=== PATIENT | female | born 1980 | race Caucasian/White ===

== ENCOUNTER 2017-05-03 10:37 | Outpatient (CLI) | payer BC, SELFPAY ==
[2017-05-03 10:44] VITALS: BMI 33.5
[2017-05-03 11:15] VITALS: BP 119/83; PULSE 116; RESP 18; TEMP 36.8
[2017-05-03 11:45] VITALS: BP 126/70; PULSE 105; RESP 16
--- NOTE | 2017-05-03 12:13 | PC.NURSE ---
PHENERGAN 12.5 MG STARTED INFUSING AT THIS TIME (1115).
[2017-05-03 12:15] VITALS: BP 125/86; PULSE 68; RESP 16
--- NOTE | 2017-05-03 12:21 | PC.NURSE ---
PHENERGAN 12.5MG INFUSION STARTED AT 1115.
--- NOTE | 2017-05-03 12:24 | PC.NURSE ---
PHENERGAN DONE INFUSING AT 1130 AND STARTED NS INFUSION AT THIS TIME WELL.
[2017-05-03 12:45] VITALS: BP 123/72; PULSE 99; RESP 16
[2017-05-03 13:15] VITALS: BP 125/80; PULSE 84; RESP 16
[2017-05-03 13:35] VITALS: BP 130/78; PULSE 82; RESP 18
== END 2017-05-03 13:45 | disposition home or self-care (01) ==
LOC: INF 10:39
PROVIDERS: PCP Family Medicine; Visit Provider Family Medicine
DX: R11.10 Vomiting, unspecified (principal); E86.0 Dehydration
CPT/HCPCS: 96361

== ENCOUNTER 2017-07-04 | Emergency (ER) | payer BC, SELFPAY ==
[2017-07-04 00:09] VITALS: BP 157/88; PULSE 148; RESP 20; TEMP 36.8; O2SAT 94; BMI 33.5
--- NOTE | 2017-07-04 00:23 | PC.NURSE ---
FSBS @ 2975 - 476; STAT GLUCOSE ORDERED
[2017-07-04 00:29] LABS: Basophils # 0.1 K/mm3 (0-0.2); Basophils % 0.9 % (0.1-2.0); Eosinophils % 0.1 % (0.1-12.0); Hematocrit 47.7 % (37.0-47.0); Hemoglobin 14.8 g/dL (12.2-16.2); Lymphocytes # 2.6 K/mm3 (0.7-4.5); Lymphocytes % 20.9 K/mm3 (10-50); Mean Corpuscular HGB Conc 31.1 g/dL (31.8-35.4); Mean Corpuscular Hemoglobin 30.6 pg (27.0-31.2); Mean Corpuscular Volume 98.5 fl (81-99); Mean Platelet Volume 8.4 fl (7.4-10.4); Monocytes # 0.9 K/mm3 (0.1-1.0); Monocytes % 7.1 % (1.7-9.3); Platelet Count 470 K/mm3 (142-424); Red Blood Count 4.85 M/mm3 (4.20-5.40); Red Cell Distribution Width 14.1 % (11.5-17.5); White Blood Count 12.6 K/mm3 (4.8-10.8)
[2017-07-04 00:31] VITALS: BP 143/86; PULSE 133; RESP 22; O2SAT 97
[2017-07-04 00:31] LABS: ABG Base Excess -3.2 mmol/L (-2.4-2.3); ABG HCO3 21.6 mmhg (22.0-26.0); ABG Oxygen Saturation 96 % (90-100); ABG PCO2 35.5 mmhg (35.0-45.0); ABG PO2 78.4 mmhg (80-100); ABG TCO2 22.7 mmhg (23-27)
[2017-07-04 00:32] LABS: POC Glucose,Bedside 538 mg/dL (70-110)
--- NOTE | 2017-07-04 00:34 | XR_ITS ---
XR chest portable HISTORY: ITS.REASON: cough ORDERING PHYSICIAN: Bulmaro Sanon MD PATIENT AGE: 36 years COMPARISON: 12/02/2016 FINDINGS: The cardiomediastinal silhouette and pulmonary vascularity are within normal limits. The lungs are clear without infiltrates, suspicious nodules, or pleural effusions. No acute bony abnormalities. IMPRESSION: Negative chest, no acute finding
[2017-07-04 00:35] LABS: Allen's Test Acceptable; Microscopic, Urine URINE MICROSCOPIC (MICROSCOPIC); Oxygen room air %; Source Right Radial
[2017-07-04 00:42] LABS: Appearance,Urine CLEAR (Clear); Bilirubin,Urine Negative (Negative); Blood, Urine Negative (Negative); Color,Urine YELLOW (Yellow); Glucose,Urine (UA) 3+ (Negative); Ketones,Urine TRACE (Negative); Leukocyte Esterase,Urine Negative (Negative); Nitrate,Urine Negative (Negative); Protein,Urine Negative (Negative); Specific Gravity, Urine <= 1.005 (1.005-1.030); Urobilinogen,Urine 0.2 EU/dl (0.2)
[2017-07-04 00:44] LABS: Urine Pregnancy, HCG Qual. Negative (Negative)
[2017-07-04 00:45] LABS: Acetone, Serum (Rapid) None Detected (None Detect)
[2017-07-04 00:48] LABS: Lactic Acid 7.2 mmol/L (0.4-2.0)
[2017-07-04 00:49] LABS: Bacteria,Urine 1+ /lpf; WBC,Urine Occasional #/hpf (0-3)
--- NOTE | 2017-07-04 00:49 | PC.NURSE ---
NOTIFIED DR MARC OF CRITICAL LACTIC ACID OF 7.2
[2017-07-04 00:58] LABS: Alanine Aminotransferase 63 U/L (12-78); Albumin Level 3.3 gm/dL (3.4-5.0); Albumin/Globulin Ratio 0.7 (1.1-1.8); Alkaline Phosphatase 143 U/L (46-116); Anion Gap 17.2 mEq/L (5-15); Aspartate Amino Transferase 36 U/L (15-37); Bilirubin,Total 0.1 mg/dL (0.2-1.0); Blood Urea Nitrogen 13 mg/dL (7-18); Calcium 9.3 mg/dL (8.5-10.1); Carbon Dioxide 20 mmol/L (21.0-32.0); Chloride 94 mmol/L (98-107); Creatinine Clearance Estimated 91 mL/min (0-300); Creatinine,Serum 1.26 mg/dL (0.55-1.02); Estimated Glomerular Filt Rate 48 ml/min (>60); GFR (African American) 58 ML/MIN (>60); Potassium 4.2 mmoL/L (3.5-5.1); Sodium 127 mmol/L (136-145); Total Protein,Serum 8.3 gm/dL (6.4-8.2)
[2017-07-04 00:59] VITALS: BP 136/89; PULSE 123; RESP 20; O2SAT 97
[2017-07-04 00:59] LABS: Glucose 571 mg/dL (74-106)
--- NOTE | 2017-07-04 00:59 | PC.NURSE ---
NOTIFIED OF GLUCOSE OF 571
[2017-07-04 01:23] VITALS: BP 162/90; PULSE 119; RESP 20; TEMP 36.9; O2SAT 96
--- NOTE | 2017-07-04 01:27 | HMH.EDGENADL ---
ED Disposition Clinical Impression: CAP (community acquired pneumonia) Qualifiers: Laterality: right Lung location: lower lobe of lung Qualified Code(s): J18.1 - Lobar pneumonia, unspecified organism Diabetes mellitus Qualifiers: Diabetes mellitus type: type 2 Diabetes mellitus complication status: with unspecified complications Diabetes mellitus long term care administrator insulin use: unspecified long term care administrator insulin use status Qualified Code(s): E11.8 - Type 2 diabetes mellitus with unspecified complications Disposition: Home, Self-Care Condition on Discharge: Good Instructions: DI for Cough -- Adult Additional Instructions: call pcp this am Referrals: Williams Oro MD [Primary Care Provider] - - Critical Care Critical Care Time: No Attestation: On 07/04/17, the high probability of a clinically significant, sudden or life threatening deterioration of the following system(s) required my full and direct attention, intervention and personal management. The time I documented below is in addition to time spent performing reported procedures but includes the following listed in this critical care notation. Medical Decision Making - Medical Records Medical records reviewed: Yes: I reviewed the patient's medical records. Vital Signs: 07/04/17 00:09 07/04/17 00:31 07/04/17 00:59 Temperature 98.2 F Temperature Source Oral Pulse Rate [Right Brachial] 148 H 133 H 123 H Respiratory Rate 20 22 20 Blood Pressure [Right Arm] 157/88 143/86 136/89 Blood Pressure Mean [Right Arm] 111 105 104 Blood Pressure Source [Right Arm] Automatic Cuff Automatic Cuff Automatic Cuff Blood Pressure Position [Right Arm] Supine Supine Supine 02 Sat by Pulse Oximetry 94 L 97 97 Oxygen Delivery Method Room Air Room Air Room Air 07/04/17 01:23 07/04/17 02:30 Temperature 98.5 F Temperature Source Oral Pulse Rate [Right Brachial] 119 H 108 H Respiratory Rate 20 18 Blood Pressure [Right Arm] 162/90 142/70 Blood Pressure Mean [Right Arm] 114 94 Blood Pressure Source [Right Arm] Automatic Cuff Automatic Cuff Blood Pressure Position [Right Arm] Supine Supine 02 Sat by Pulse Oximetry 96 96 Oxygen Delivery Method Room Air Room Air - Lab Data Lab results reviewed: Yes: I reviewed the patient's lab results. Lab Results 07/04/17 00:13: WBC 12.6 H, RBC 4.85, Hgb 14.8, Hct 47.7 H, MCV 98.5, MCH 30.6, MCHC 31.1 L, RDW 14.1, Plt Count 470 H, MPV 8.4, Neut % (Auto) 71.0, Lymph % (Auto) 20.9, [place] % (Auto) 7.1, Eos % (Auto) 0.1, Baso % (Auto) 0.9, Neut # (Auto) 9.0 H, Lymph # (Auto) 2.6, [place] # (Auto) 0.9, Eos # (Auto) 0.0, Baso # (Auto) 0.1 07/04/17 00:13: Urine HCG, Qual Negative 07/04/17 00:13: Sodium 127 L, Potassium 4.2, Chloride 94 L, Carbon Dioxide 20 L, Anion Gap 17.2 H, BUN 13, Creatinine 1.26 H, Estimated Creat Clear 91, Estimated GFR 48 L, Est GFR ( Amer) 58 L, Glucose 571 H*, Calcium 9.3, Total Bilirubin 0.1 L, AST 36, ALT 63, Alkaline Phosphatase 143 H, Total Protein 8.3 H, Albumin 3.3 L, Globulin 5.0 H, Albumin/Globulin Ratio 0.7 L, Acetone Level None detected 07/04/17 00:13: Lactic Acid 7.2 H 07/04/17 00:23: Urine Color Yellow, Urine Appearance Clear, Urine pH 5.0, Ur Specific [place] <= 1.005, Urine Protein Negative, Urine Glucose (UA) 3+, Urine Ketones Trace, Urine Blood Negative, Urine Nitrate Negative, Urine Bilirubin Negative, Urine Urobilinogen 0.2, Ur Leukocyte Esterase Negative, Urine WBC Occasional, Ur Squamous Epith Cells 5-10, Urine Bacteria 1+ 07/04/17 00:23: Specimen Source Right radial, O2 % room air, ABG pH 7.40, ABG pCO2 35.5, ABG pO2 78.4 L, ABG HCO3 21.6 L, ABG Total CO2 22.7 L, ABG O2 Saturation 96, ABG Base Excess -3.2 L, Cristian Test Acceptable 07/04/17 00:25: POC Glucose 538 07/04/17 00:37: Influenza Type A Ag Negative, Influenza Type B Ag Negative Result diagrams: 07/04/17 00:13 07/04/17 00:13 Orders (Tests/Meds): ED MEDICATIONS Generic Name Dose Route Start Last Admin Trade Name Freq PRN Reason Stop Dose Admi
[2017-07-04 02:30] VITALS: BP 142/70; PULSE 108; RESP 18; O2SAT 96
[2017-07-04 03:09] VITALS: BP 145/80; PULSE 98; RESP 16; TEMP 36.7; O2SAT 98
[2017-07-04 03:54] LABS: Reflex Lactic Add Lactic Reflex
[2017-07-04 08:34] LABS: POC Glucose,Bedside 370 mg/dL (70-110)
== END 2017-07-04 03:13 | disposition home or self-care (01) ==
PROVIDERS: Emergency Provider Emergency Medicine; Family Provider Family Medicine; PCP Family Medicine
DX: J18.1 Lobar pneumonia, unspecified organism (principal); E11.8 Type 2 diabetes mellitus with unspecified complications; R00.0 Tachycardia, unspecified; Z79.84 Long term (current) use of oral hypoglycemic drugs
CPT/HCPCS: 71045; 80053; 81001; 81025; 82009; 82803; 82962; 83605; 85025; 87040; 87275; 87276; 93005; 93041; 96365; 96366; 96367; 96374; 96375; 99285

== ENCOUNTER 2017-07-06 12:11 | Inpatient (IN) | payer BC, SELFPAY ==
--- NOTE | 2017-07-06 13:00 | XR_ITS ---
XR chest 2V INDICATION: Persistent cough PA and lateral chest 12/02/2016 COMPARISON: FINDINGS: The lung bobo are well expanded and appear clear of infiltrate. The cardiomediastinal silhouette and vascularity are normal. The costophrenic angles are clear. The bony thorax is normal. IMPRESSION: Normal chest.
[2017-07-06 13:07] VITALS: BP 132/75; PULSE 109; RESP 16; TEMP 36.7; O2SAT 94; BMI 33.1
--- NOTE | 2017-07-06 13:21 | HMH.HP ---
*Admission Date: 07/06/17 <Rosanne Gonzalez - 07/06/17 13:32> *Chief complaint: weakness, vomiting, cough <Rosanne Gonzalez - 07/06/17 13:32> *History of present illness: Patient in office today with a deep, dry intractable cough. SHe had not been eating or drinking well at home and appeared dehydrated. Her lips were cracked and mucus membranes dry. In ER Sunday night, her lactic acid had been elevated at 7.2. <Clyde Almodovar - 07/06/17 18:10> Ms. Garcia is a 36yo female who was seen in the office of A on 07/03 and diagnosed with bronchitis. She was given a dexa shot and started on levaquin and tussigon. She went to the ER the night after her appt d/t feeling poorly. Her glucose was elevated in the 500's, her lactic acid was high, and a CXR showed no pneumonia. She was sent home and followed up in the office today. Her glucose was 324 today fasting. She is still coughing and is weak. She has been coughing so hard she vomits. She has had decreased appetitie as well. She was admitted for further evaluation and treatment. <Rosanne Gonzalez - 07/06/17 14:09> [facility] History Medical History: Reports:: Diabetes Mellitus Type 2, Gastroesophageal Reflux Disease(GERD), Hyperlipidemia, Migraine Denies:: Cancer, Diabetes Mellitus Type 1, MRSA <Rosanne Gonzalez 07/06/17 13:32> Amputation: No <Rosanne Gonzalez 07/06/17 13:32> Fractures: No <Rosanne Gonzalez 07/06/17 13:32> Comment: Splenectomy, Bx of thyroid nodule, Uterine repair with cyst removal, [place] tooth, Basal Cell removed from back, Cholecystectomy <Rosanne Gonzalez 07/06/17 13:32> - *Social History Smoking Status: Never smoker <Rosanne Gonzalez 07/06/17 14:09> Alcohol Intake: never <Rosanne Gonzalez 07/06/17 13:32> *Family Hx:: No significant family history <Rosanne Gonzalez 07/06/17 14:09> Review of Systems - Constitutional Reports body ache(s), Reports chills, Reports headache(s), Reports weakness, Denies fever(s) [facility]> - Eyes Denies blurry vision, Denies double vision <[facility] 07/06/17 14:09> - ENT Reports nasal congestion, Denies sore throat [facility] 07/06/[facility] 14:09> - *Cardiovascular Reports fast heart rate, Denies chest pain [facility] 07/06/17 14:09> - *Respiratory Reports cough, Reports shortness of breath <[facility] 07/06/17 14:09> - *Gastrointestinal Reports abdominal pain, Reports loose stools, Reports nausea, Reports vomiting [facility] 07/06/17 14:09> - *Genitourinary Denies difficulty urinating, Denies painful urination <[facility] 07/06/17 14:09> - *Musculoskeletal Reports body aches, Denies joint pain <[facility] 07/06/17 14:09> - *Neurologic Reports headache(s), Reports dizziness, Reports weakness <[facility] 07/06/17 14:09> Meds Home Medications Medication Instructions Recorded Confirmed Type Rizatriptan Benzoate [Maxalt] 5 mg PO NEEDED PRN 05/03/17 07/06/17 History Triamterene/Hydrochlorothiazid 1 each PO DAILYP PRN 05/03/17 07/06/17 History [Dyazide 37.5-25 Capsule] Atorvastatin Calcium [Atorvastatin 40 mg PO HS 07/04/17 07/06/17 History 40mg Tab] Dapagliflozin/Metformin HCl 2 each PO DAILY 07/04/17 07/06/17 History [Xigduo Xr 5 mg-1,000 mg Tablet] levoFLOXacin [Levofloxacin 750MG 750 mg PO DAILY 07/04/17 07/06/17 History Tablet] Hydrocodone Bit/Homatrop Me-Br 1 each PO Q4-6H PRN 07/06/17 07/06/17 History [Tussigon 5-1.5 mg Tablet] <Clyde Almodovar - 07/06/17 18:10> Allergies Allergy/AdvReac Type Severity Reaction Status Date / Time No Known Allergies Allergy Verified 05/03/17 10:51 <Clyde Almodovar - 07/06/17 18:10> Exam Vital signs and Labs for Last 24 Hours: Temp Pulse Resp BP Pulse Ox 99.2 F 93 H 18 106/64 96 07/06/17 15:58 07/06/17 15:58 07/06/17 15:58 07/06/17 15:58 07/06/17 15:58 Laboratory Results - last 24 hr 07/06/17 13:30: WBC 12.5 H, RBC 4.93,
--- NOTE | 2017-07-06 13:25 | P.HP_ITS ---
*Admission Date: 07/06/17 <Rosanne Gonzalez - 07/06/17 13:32> *Chief complaint: weakness, vomiting, cough <Rosanne Gonzalez - 07/06/17 13:32> *History of present illness: Patient in office today with a deep, dry intractable cough. SHe had not been eating or drinking well at home and appeared dehydrated. Her lips were cracked and mucus membranes dry. In ER Sunday night, her lactic acid had been elevated at 7.2. <Clyde Almodovar - 07/06/17 18:10> Ms. Garcia is a 36yo female who was seen in the office of A on 07/03 and diagnosed with bronchitis. She was given a dexa shot and started on levaquin and tussigon. She went to the ER the night after her appt d/t feeling poorly. Her glucose was elevated in the 500's, her lactic acid was high, and a CXR showed no pneumonia. She was sent home and followed up in the office today. Her glucose was 324 today fasting. She is still coughing and is weak. She has been coughing so hard she vomits. She has had decreased appetitie as well. She was admitted for further evaluation and treatment. <Rosanne Gonzalez - 07/06/17 14:09> [facility] History Medical History: Reports:: Diabetes Mellitus Type 2, Gastroesophageal Reflux Disease(GERD), Hyperlipidemia, Migraine Denies:: Cancer, Diabetes Mellitus Type 1, MRSA <Rosanne Gonzalez 07/06/17 13:32> Amputation: No <Rosanne Gonzalez 07/06/17 13:32> Fractures: No <Rosanne Gonzalez 07/06/17 13:32> Comment: Splenectomy, Bx of thyroid nodule, Uterine repair with cyst removal, [place] tooth, Basal Cell removed from back, Cholecystectomy <Rosanne Gonzalez 07/06/17 13:32> - *Social History Smoking Status: Never smoker <Rosanne Gonzalez 07/06/17 14:09> Alcohol Intake: never <Rosanne Gonzalez 07/06/17 13:32> *Family Hx:: No significant family history <Rosanne Gonzalez 07/06/17 14:09> Review of Systems - Constitutional Reports body ache(s), Reports chills, Reports headache(s), Reports weakness, Denies fever(s) [facility] 07/06/17 14:09> - Eyes Denies blurry vision, Denies double vision [facility] 07/06/17 14:09> - ENT Reports nasal congestion, Denies sore throat <[facility] 07/06/17 14:09> - *Cardiovascular Reports fast heart rate, Denies chest pain [facility] 07/06/17 14:09> - *Respiratory Reports cough, Reports shortness of breath <[facility] 07/06/17 14:09> - *Gastrointestinal Reports abdominal pain, Reports loose stools, Reports nausea, Reports vomiting <[facility] 07/06/17 14:09> - *Genitourinary Denies difficulty urinating, Denies painful urination <[facility] 14:09> - *Musculoskeletal Reports body aches, Denies joint pain <[facility] 07/06/17 14:09> - *Neurologic Reports headache(s), Reports dizziness, Reports weakness <[facility] 01/15 14:09> Meds Home Medications Medication Instructions Recorded Confirmed Type Rizatriptan Benzoate [Maxalt] 5 mg PO NEEDED PRN 05/03/17 07/06/17 History Triamterene/Hydrochlorothiazid 1 each PO DAILYP PRN 05/03/17 07/06/17 History [Dyazide 37.5-25 Capsule] Atorvastatin Calcium [Atorvastatin 40 mg PO HS 07/04/17 07/06/17 History 40mg Tab] Dapagliflozin/Metformin HCl 2 each PO DAILY 07/04/17 07/06/17 History [Xigduo Xr 5 mg-1,000 mg Tablet] levoFLOXacin [Levofloxacin 750MG 750 mg PO DAILY 07/04/17 07/06/17 History Tablet] Hydrocodone Bit/Homatrop Me-Br 1 each PO Q4-6H PRN 07/06/17 07/06/17 History [Tussigon 5-1.5 mg Tablet] <Clyde Almodovar - 07/06/17 18:10> Allergies
--- NOTE | 2017-07-06 14:00 | PC.NURSE ---
PT ARRIVED TO FLOOR AT 1330, NO COMPLAINTS VOICED TO NURSE. PT'S IV STARTED AND ADMISSION PROCESS BEGAN. PT HAS FAMILY AT BEDSIDE, LABS COLLECTED AND SENT TO LAB. PT IS IN BED, CALL LIGHT WITHIN REACH, WILL CONTINUE TO MONITOR.
[2017-07-06 14:20] LABS: Alanine Aminotransferase 56 U/L (12-78); Albumin Level 3.3 gm/dL (3.4-5.0); Albumin/Globulin Ratio 0.7 (1.1-1.8); Alkaline Phosphatase 123 U/L (46-116); Anion Gap 13.1 mEq/L (5-15); Aspartate Amino Transferase 33 U/L (15-37); Basophils # 0.2 K/mm3 (0-0.2); Basophils % 1.3 % (0.1-2.0); Bilirubin,Total 0.2 mg/dL (0.2-1.0); Blood Urea Nitrogen 14 mg/dL (7-18); Calcium 9.7 mg/dL (8.5-10.1); Carbon Dioxide 27 mmol/L (21.0-32.0); Chloride 98 mmol/L (98-107); Creatinine Clearance Estimated 145 mL/min (0-300); Creatinine,Serum 0.78 mg/dL (0.55-1.02); Eosinophils # 0.3 K/mm3 (0.0-0.4); Eosinophils % 2.7 % (0.1-12.0); Estimated Glomerular Filt Rate 83 ml/min (>60); GFR (African American) 101 ML/MIN (>60); Globulin 4.5 gm/dl (1.3-3.2); Glucose 256 mg/dL (74-106); Hematocrit 46.5 % (37.0-47.0); Hemoglobin 15.2 g/dL (12.2-16.2); Lymphocytes # 5.7 K/mm3 (0.7-4.5); Lymphocytes % 45.8 K/mm3 (10-50); Mean Corpuscular HGB Conc 32.7 g/dL (31.8-35.4); Mean Corpuscular Hemoglobin 30.9 pg (27.0-31.2); Mean Corpuscular Volume 94.4 fl (81-99); Mean Platelet Volume 8.3 fl (7.4-10.4); Monocytes # 1.4 K/mm3 (0.1-1.0); Monocytes % 11.2 % (1.7-9.3); Neutrophils # 4.9 K/mm3 (1.8-7.8); Neutrophils % 39.1 % (37.0-80.0); Platelet Count 499 K/mm3 (142-424); Potassium 4.1 mmoL/L (3.5-5.1); Red Blood Count 4.93 M/mm3 (4.20-5.40); Red Cell Distribution Width 14.1 % (11.5-17.5); Sodium 134 mmol/L (136-145); Total Protein,Serum 7.8 gm/dL (6.4-8.2); White Blood Count 12.5 K/mm3 (4.8-10.8)
[2017-07-06 14:25] LABS: Acetone, Serum (Rapid) None Detected (None Detect)
[2017-07-06 14:27] LABS: Lactic Acid 2.2 mmol/L (0.4-2.0)
[2017-07-06 15:58] VITALS: BP 106/64; PULSE 93; RESP 18; TEMP 37.3; O2SAT 96
--- NOTE | 2017-07-06 16:31 | P.CONPHA_ITS ---
[facility] Pharmacy VTE Monitoring - Patient Demographics Admission date: 07/06/17 Report Date: 07/06/17 Time: 16:31 Allergies/Adverse Reactions: Patient Allergies No Known Allergies Allergy (Verified 05/03/17 10:51) Height: 1.68 m Weight: 93.242 kg Patient Problems: Current Active Problems Type 2 diabetes mellitus (Chronic) Hyperglycemia (Acute) Dehydration (Acute) Lactic acidosis (Acute) Bronchitis (Acute) - VTE Risk Labs: VTE Related Lab Results Hgb 15.2 g/dL (12.2-16.2) 07/06/17 13:30 Hct 46.5 % (37.0-47.0) 07/06/17 13:30 Plt Count 499 K/mm3 (142-424) H 07/06/17 13:30 BUN 14 mg/dL (7-18) 07/06/17 13:30 Creatinine 0.78 mg/dL (0.55-1.02) D 07/06/17 13:30 Estimated Creat Clear 145 mL/min (0-300) 07/06/17 13:30 VTE Score: 3 VTE Risk Level: Low Risk - Prophylaxis VTE Prophylaxis Ordered?: Yes Types of VTE Prophylaxis: TEDS Knee High Location of Applied Device: Bilateral Lower Extremeties
[2017-07-06 16:52] LABS: POC Glucose,Bedside 169 mg/dL (70-110)
[2017-07-06 18:06] LABS: Reflex Lactic Add Lactic Reflex
[2017-07-06 18:24] LABS: Adenovirus,PCR Not Detected (NotDetected); Bordetella Pertussis Not Detected (NotDetected); Chlamydophila Pneumoniae, PCR Not Detected (NotDetected); Coronavirus 229E Not Detected (NotDetected); Coronavirus NL63 Not Detected (NotDetected); Coronavirus OC43 Not Detected (NotDetected); Coronovirus HKU1,PCR Not Detected (NotDetected); Human Metapneumovirus Not Detected (NotDetected); Influenza A, PCR Not Detected (NotDetected); Influenza AH1, 2009 Not Detected (NotDetected); Influenza AH1, PCR Not Detected (NotDetected); Influenza AH3,PCR Not Detected (NotDetected); Influenza B, PCR Not Detected (NotDetected); Mycoplasma Pneumoniae, PCR Not Detected (NotDected); Parainfluenza 1, PCR Not Detected (NotDetected); Parainfluenza 2, PCR Not Detected (NotDetected); Parainfluenza 3, PCR Not Detected (NotDetected); Parainfluenza 4, PCR Not Detected (NotDetected); Respiratory Syncytial Virus Not Detected (NotDetected); Rhinovirus/Enterovirus Not Detected (NotDetected)
[2017-07-06 19:42] VITALS: BP 127/77; PULSE 99; RESP 16; TEMP 37; O2SAT 99
[2017-07-06 20:41] LABS: Lactic Acid Follow Up (RFLX 1) 1.9 (0.4-2.0)
[2017-07-06 21:22] LABS: POC Glucose,Bedside 234 mg/dL (70-110)
[2017-07-07] VITALS: BP 130/68; PULSE 90; RESP 18; TEMP 36.9; O2SAT 96
--- NOTE | 2017-07-07 04:35 | PC.NURSE ---
PT HAS SLEPT INTERMITTENTLY. PT WITH HACKY COUGH. PT GIVEN COUGH MED ORDERED. NO OTHER COMPLAINTS.
[2017-07-07 06:29] LABS: POC Glucose,Bedside 200 mg/dL (70-110)
[2017-07-07 06:36] LABS: Basophils # 0.2 K/mm3 (0-0.2); Basophils % 1.4 % (0.1-2.0); Eosinophils # 0.3 K/mm3 (0.0-0.4); Eosinophils % 2.4 % (0.1-12.0); Hematocrit 42.6 % (37.0-47.0); Lymphocytes # 6.4 K/mm3 (0.7-4.5); Lymphocytes % 54.3 K/mm3 (10-50); Mean Corpuscular Hemoglobin 30.5 pg (27.0-31.2); Mean Corpuscular Volume 95.4 fl (81-99); Mean Platelet Volume 7.8 fl (7.4-10.4); Monocytes # 1.5 K/mm3 (0.1-1.0); Monocytes % 12.4 % (1.7-9.3); Neutrophils # 3.5 K/mm3 (1.8-7.8); Neutrophils % 29.5 % (37.0-80.0); Platelet Count 409 K/mm3 (142-424); Red Blood Count 4.46 M/mm3 (4.20-5.40); Red Cell Distribution Width 14.2 % (11.5-17.5); White Blood Count 11.8 K/mm3 (4.8-10.8)
[2017-07-07 06:41] LABS: MANUAL DIFFERENTIAL MANUAL DIFFERENTIAL (MANUAL DIFF)
[2017-07-07 06:48] LABS: Hemoglobin 13.7 g/dL (12.2-16.2)
[2017-07-07 06:51] LABS: Anion Gap 8.9 mEq/L (5-15); Blood Urea Nitrogen 13 mg/dL (7-18); Carbon Dioxide 28 mmol/L (21.0-32.0); Chloride 105 mmol/L (98-107); Creatinine Clearance Estimated 172 mL/min (0-300); Creatinine,Serum 0.66 mg/dL (0.55-1.02); Estimated Glomerular Filt Rate 101 ml/min (>60); GFR (African American) 122 ML/MIN (>60); Glucose 223 mg/dL (74-106); Potassium 3.9 mmoL/L (3.5-5.1); Sodium 138 mmol/L (136-145)
[2017-07-07 07:40] VITALS: BP 128/72; PULSE 86; RESP 20; TEMP 36.9; O2SAT 96
--- NOTE | 2017-07-07 10:22 | PC.NURSE ---
Pharmacy okayed with MD Almodovar to keep 10 ml of cough medicine, Promethazine HCL/Codeine 10 ml, Pharmacy states on both drugs she is within range of ml. Will continue to monitor
--- NOTE | 2017-07-07 10:35 | HMH.ACPN2 ---
Internal Medicine - PN: Subj *Date: 07/07/17 *Time: 10:35 Interval history: Did not sleep well due to persistent cough and had some diarrhea. Woke with headache this morning. Able to eat some. Exam Vital signs and Labs for Last 24 Hours: Temp Pulse Resp BP Pulse Ox 98.5 F 86 20 128/72 96 07/07/17 07:40 07/07/17 07:40 07/07/17 07:40 07/07/17 07:40 07/07/17 07:40 Laboratory Results - last 24 hr 07/06/17 13:30: WBC 12.5 H, RBC 4.93, Hgb 15.2, Hct 46.5, MCV 94.4, MCH 30.9, MCHC 32.7, RDW 14.1, Plt Count 499 H, MPV 8.3, Neut % (Auto) 39.1, Lymph % (Auto) 45.8, [place] % (Auto) 11.2 H, Eos % (Auto) 2.7, Baso % (Auto) 1.3, Neut # (Auto) 4.9, Lymph # (Auto) 5.7 H, [place] # (Auto) 1.4 H, Eos # (Auto) 0.3, Baso # (Auto) 0.2 07/06/17 13:30: Sodium 134 L, Potassium 4.1, Chloride 98, Carbon Dioxide 27 D, Anion Gap 13.1, BUN 14, Creatinine 0.78 D, Estimated Creat Clear 145, Estimated GFR 83, Est GFR ( Amer) 101 D, Glucose 256 H, Calcium 9.7, Total Bilirubin 0.2, AST 33, ALT 56, Alkaline Phosphatase 123 H, Total Protein 7.8, Albumin 3.3 L, Globulin 4.5 H, Albumin/Globulin Ratio 0.7 L, Acetone Level None detected 07/06/17 13:30: Lactic Acid 2.2 H 07/06/17 16:30: Chlamy pneumoniae PCR Not detected, Adenovirus (PCR) Not detected, B.parapertussis DNA PCR Not detected, Coronavirus OC43 (PCR) Not detected, Coronavirus HKU1 (PCR) Not detected, Coronavirus 229E (PCR) Not detected, Coronavirus NL63 (PCR) Not detected, Human Metapneumovir PCR Not detected, Influenza A (H1) PCR Not detected, Influ A (H1N1/09) PCR Not detected, Influenza A (H3) PCR Not detected, Influenza Type A (PCR) Not detected, Influenza Type B (PCR) Not detected, M. pneumoniae (PCR) Not detected, Parainfluenza 1 (PCR) Not detected, Parainfluenza 2 (PCR) Not detected, Parainfluenza 3 (PCR) Not detected, Parainfluenza 4 (PCR) Not detected, RSV (PCR) Not detected, Entero/Rhino (PCR) Not detected 07/06/17 16:40: POC Glucose 169 07/06/17 18:25: Lactic Acid Fup @ 4Hr 1.9 07/06/17 21:10: POC Glucose 234 07/07/17 06:11: POC Glucose 200 07/07/17 06:26: WBC 11.8 H, RBC 4.46, Hgb 13.7, Hct 42.6, MCV 95.4, MCH 30.5, MCHC 32.0, RDW 14.2, Plt Count 409, MPV 7.8, Neut % (Auto) 29.5 L, Lymph % (Auto) 54.3 H, [place] % (Auto) 12.4 H, Eos % (Auto) 2.4, Baso % (Auto) 1.4, Neut # (Auto) 3.5, Lymph # (Auto) 6.4 H, [place] # (Auto) 1.5 H, Eos # (Auto) 0.3, Baso # (Auto) 0.2 07/07/17 06:26: Sodium 138, Potassium 3.9, Chloride 105, Carbon Dioxide 28, Anion Gap 8.9, BUN 13, Creatinine 0.66, Estimated Creat Clear 172, Estimated GFR 101, Est GFR ( Amer) 122 D, Glucose 223 H I & O for Last 24 hours: Intake & Output 07/04/17 07/05/17 07/06/17 07/07/17 11:59 11:59 11:59 11:59 Intake Total 3760 / 3760 Balance 3760 / 3760 Weight 205 lb 9 oz Microbiology Reports for the Last 24 Hours: Laboratory Results - last 24 hr 07/06/17 13:30: WBC 12.5 H, RBC 4.93, Hgb 15.2, Hct 46.5, MCV 94.4, MCH 30.9, MCHC 32.7, RDW 14.1, Plt Count 499 H, MPV 8.3, Neut % (Auto) 39.1, Lymph % (Auto) 45.8, [place] % (Auto) 11.2 H, Eos % (Auto) 2.7, Baso % (Auto) 1.3, Neut # (Auto) 4.9, Lymph # (Auto) 5.7 H, [place] # (Auto) 1.4 H, Eos # (Auto) 0.3, Baso # (Auto) 0.2 07/06/17 13:30: Sodium 134 L, Potassium 4.1, Chloride 98, Carbon Dioxide 27 D, Anion Gap 13.1, BUN 14, Creatinine 0.78 D, Estimated Creat Clear 145, Estimated GFR 83, Est GFR ( Amer) 101 D, Glucose 256 H, Calcium 9.7, Total Bilirubin 0.2, AST 33, ALT 56, Alkaline Phosphatase 123 H, Total Protein 7.8, Albumin 3.3 L, Globulin 4.5 H, Albumin/Globulin Ratio 0.7 L, Acetone Level None detected 07/06/17 13:30: Lactic Acid 2.2 H 07/06/17 16:30: Chlamy pneumoniae PCR Not detected, Adenovirus (PCR) Not detected, B.parapertussis DNA PCR Not detected, Coronavirus OC43 (PCR) Not detected, Coronavirus HKU1 (PCR) Not detected, Coronavirus 229E (PCR) Not detected, Coronavirus NL63 (PCR) Not detected, Human Metapneumovir PCR Not detected, Influenza A (H1) PCR Not d
--- NOTE | 2017-07-07 10:39 | P.PN_ITS ---
Internal Medicine - PN: Subj *Date: 07/07/17 *Time: 10:35 Interval history: Did not sleep well due to persistent cough and had some diarrhea. Woke with headache this morning. Able to eat some. Exam Vital signs and Labs for Last 24 Hours: Temp Pulse Resp BP Pulse Ox 98.5 F 86 20 128/72 96 07/07/17 07:40 07/07/17 07:40 07/07/17 07:40 07/07/17 07:40 07/07/17 07:40 Laboratory Results - last 24 hr 07/06/17 13:30: WBC 12.5 H, RBC 4.93, Hgb 15.2, Hct 46.5, MCV 94.4, MCH 30.9, MCHC 32.7, RDW 14.1, Plt Count 499 H, MPV 8.3, Neut % (Auto) 39.1, Lymph % (Auto ) 45.8, [place] % (Auto) 11.2 H, Eos % (Auto) 2.7, Baso % (Auto) 1.3, Neut # (Auto ) 4.9, Lymph # (Auto) 5.7 H, [place] # (Auto) 1.4 H, Eos # (Auto) 0.3, Baso # (Auto ) 0.2 07/06/17 13:30: Sodium 134 L, Potassium 4.1, Chloride 98, Carbon Dioxide 27 D, Anion Gap 13.1, BUN 14, Creatinine 0.78 D, Estimated Creat Clear 145, Estimated GFR 83, Est GFR ( Amer) 101 D, Glucose 256 H, Calcium 9.7, Total Bilirubin 0.2, AST 33, ALT 56, Alkaline Phosphatase 123 H, Total Protein 7.8, Albumin 3.3 L, Globulin 4.5 H, Albumin/Globulin Ratio 0.7 L, Acetone Level None detected 07/06/17 13:30: Lactic Acid 2.2 H 07/06/17 16:30: Chlamy pneumoniae PCR Not detected, Adenovirus (PCR) Not detected, B.parapertussis DNA PCR Not detected, Coronavirus OC43 (PCR) Not detected, Coronavirus HKU1 (PCR) Not detected, Coronavirus 229E (PCR) Not detected, Coronavirus NL63 (PCR) Not detected, Human Metapneumovir PCR Not detected, Influenza A (H1) PCR Not detected, Influ A (H1N1/09) PCR Not detected , Influenza A (H3) PCR Not detected, Influenza Type A (PCR) Not detected, Influenza Type B (PCR) Not detected, M. pneumoniae (PCR) Not detected, Parainfluenza 1 (PCR) Not detected, Parainfluenza 2 (PCR) Not detected, Parainfluenza 3 (PCR) Not detected, Parainfluenza 4 (PCR) Not detected, RSV (PCR ) Not detected, Entero/Rhino (PCR) Not detected 07/06/17 16:40: POC Glucose 169 07/06/17 18:25: Lactic Acid Fup @ 4Hr 1.9 07/06/17 21:10: POC Glucose 234 07/07/17 06:11: POC Glucose 200 07/07/17 06:26: WBC 11.8 H, RBC 4.46, Hgb 13.7, Hct 42.6, MCV 95.4, MCH 30.5, MCHC 32.0, RDW 14.2, Plt Count 409, MPV 7.8, Neut % (Auto) 29.5 L, Lymph % (Auto ) 54.3 H, [place] % (Auto) 12.4 H, Eos % (Auto) 2.4, Baso % (Auto) 1.4, Neut # ( Auto) 3.5, Lymph # (Auto) 6.4 H, [place] # (Auto) 1.5 H, Eos # (Auto) 0.3, Baso # ( Auto) 0.2 07/07/17 06:26: Sodium 138, Potassium 3.9, Chloride 105, Carbon Dioxide 28, Anion Gap 8.9, BUN 13, Creatinine 0.66, Estimated Creat Clear 172, Estimated GFR 101, Est GFR ( Amer) 122 D, Glucose 223 H I & O for Last 24 hours: Intake & Output 07/04/17 07/05/17 07/06/17 07/07/17 11:59 11:59 11:59 11:59 Intake Total 3760 / 3760 Balance 3760 / 3760 Weight 205 lb 9 oz Microbiology Reports for the Last 24 Hours: Laboratory Results - last 24 hr 07/06/17 13:30: WBC 12.5 H, RBC 4.93, Hgb 15.2, Hct 46.5, MCV 94.4, MCH 30.9, MCHC 32.7, RDW 14.1, Plt Count 499 H, MPV 8.3, Neut % (Auto) 39.1, Lymph % (Auto ) 45.8, [place] % (Auto) 11.2 H, Eos % (Auto) 2.7, Baso % (Auto) 1.3, Neut # (Auto ) 4.9, Lymph # (Auto) 5.7 H, [place] # (Auto) 1.4 H, Eos # (Auto) 0.3, Baso # (Auto ) 0.2 07/06/17 13:30: Sodium 134 L, Potassium 4.1, Chloride 98, Carbon Dioxide 27 D, Anion Gap 13.1, BUN 14, Creatinine 0.78 D, Estimated Creat Clear 145, Estimated GFR 83, Est GFR ( Amer) 101 D, Glucose 256 H, Calcium 9.7, Total Bilirubin 0.2, AST 33, ALT 56, Alkaline Phosphatase 123 H, Total Protein 7.8, Albumin 3.3 L, Globulin 4.5 H, Albumin/Globulin Ratio 0.7 L, Acetone
[2017-07-07 12:16] LABS: POC Glucose,Bedside 207 mg/dL (70-110)
--- NOTE | 2017-07-07 15:11 | PC.NURSE ---
Pt resting in bed with no complaints. at bedside. States that new headache medicine has relieved her SANTOYO. PRN cough medicine given this shift with controlled symptoms. Call light in reach. Will continue to monitor
[2017-07-07 15:40] LABS: Eosinophils % 3 % (0-3); Lymphocytes % 42 % (10-50); Monocytes % 6 % (2-9); Neutrophils % 28 % (42-76); RBC Morphology Normal; Total Cells Counted 100
[2017-07-07 15:41] LABS: Platelet Estimate Slight Increase
[2017-07-07 15:45] VITALS: BP 100/60; PULSE 100; RESP 20; TEMP 37.1; O2SAT 97
[2017-07-07 17:15] LABS: POC Glucose,Bedside 146 mg/dL (70-110)
[2017-07-07 20:00] VITALS: BP 120/68; PULSE 85; RESP 18; TEMP 36.4; O2SAT 96
[2017-07-07 21:15] LABS: POC Glucose,Bedside 158 mg/dL (70-110)
[2017-07-08 04:00] VITALS: BP 129/82; PULSE 84; RESP 18; TEMP 36.5; O2SAT 96
--- NOTE | 2017-07-08 04:32 | PC.NURSE ---
PT HAS SLEPT INTERMITTENTLY. RECEIVED PRN COUGH MED TIMES 2. COUGH LESS FREQUENT THAN PREVIOUS NIGHT.
[2017-07-08 06:33] LABS: POC Glucose,Bedside 136 mg/dL (70-110)
[2017-07-08 07:06] LABS: Basophils # 0.2 K/mm3 (0-0.2); Basophils % 1.3 % (0.1-2.0); Eosinophils # 0.3 K/mm3 (0.0-0.4); Hematocrit 44.8 % (37.0-47.0); Hemoglobin 14.1 g/dL (12.2-16.2); Lymphocytes # 7.2 K/mm3 (0.7-4.5); Lymphocytes % 52.4 K/mm3 (10-50); Mean Corpuscular HGB Conc 31.5 g/dL (31.8-35.4); Mean Corpuscular Volume 95.2 fl (81-99); Monocytes # 1.3 K/mm3 (0.1-1.0); Monocytes % 9.3 % (1.7-9.3); Neutrophils # 4.8 K/mm3 (1.8-7.8); Platelet Count 440 K/mm3 (142-424); Red Blood Count 4.71 M/mm3 (4.20-5.40); White Blood Count 13.7 K/mm3 (4.8-10.8)
[2017-07-08 07:12] LABS: MANUAL DIFFERENTIAL MANUAL DIFFERENTIAL (MANUAL DIFF)
[2017-07-08 07:24] LABS: Eosinophils % 1 % (0-3); Lymphocytes % 49 % (10-50); Monocytes % 3 % (2-9); Neutrophils % 47 % (42-76); Total Cells Counted 100
[2017-07-08 07:25] LABS: Platelet Estimate Slight Increase; RBC Morphology Normal
--- NOTE | 2017-07-08 08:38 | HMH.ACPN2 ---
Internal Medicine - PN: Subj *Date: 07/08/17 *Time: 08:38 Interval history: Frequency and intensity of cough has improved some. Woke again with headache this AM. Still having some diarrhea. Eating OK and tolerating diet. Sugars have improved. Exam Vital signs and Labs for Last 24 Hours: Temp Pulse Resp BP Pulse Ox 97.7 F 84 18 129/82 96 07/08/17 04:00 07/08/17 04:00 07/08/17 04:00 07/08/17 04:00 07/08/17 04:00 Laboratory Results - last 24 hr 07/07/17 06:26: Total Counted 100, Neutrophils % (Manual) 28 L, Lymphocytes % (Manual) 42, Atypical Lymphs % 21.0, Monocytes % (Manual) 6, Eosinophils % (Manual) 3, Platelet Estimate Slight increase, RBC Morphology Normal 07/07/17 11:38: POC Glucose 207 07/07/17 16:53: POC Glucose 146 07/07/17 20:31: POC Glucose 158 07/08/17 06:03: POC Glucose 136 07/08/17 06:15: WBC 13.7 H, RBC 4.71, Hgb 14.1, Hct 44.8, MCV 95.2, MCH 30.0, MCHC 31.5 L, RDW 14.0, Plt Count 440 H, MPV 8.0, Neut % (Auto) 35.0 L, Lymph % (Auto) 52.4 H, [place] % (Auto) 9.3, Eos % (Auto) 2.0, Baso % (Auto) 1.3, Neut # (Auto) 4.8, Lymph # (Auto) 7.2 H, [place] # (Auto) 1.3 H, Eos # (Auto) 0.3, Baso # (Auto) 0.2, Total Counted 100, Neutrophils % (Manual) 47, Lymphocytes % (Manual) 49, Monocytes % (Manual) 3, Eosinophils % (Manual) 1, Platelet Estimate Slight increase, RBC Morphology Normal I & O for Last 24 hours: Intake & Output 07/05/17 07/06/17 07/07/17 07/08/17 11:59 11:59 11:59 12:59 Intake Total 3760 / 3760 5543 / 5543 Balance 3760 / 3760 5543 / 5543 Weight 205 lb 9 oz 212 lb - Constitutional no acute distress - *Routine HEENT Exam ENT: Present: mucous membranes moist - *Routine Respiratory Exam Present: CTA bilaterally - *Routine Cardiovascular Exam Present: RRR Assessment and Plan (1) Bronchitis Current visit: Yes Status: Acute Category: Medical Code(s): J40 - Bronchitis, not specified as acute or chronic (2) Dehydration Current visit: Yes Status: Acute Category: Medical Code(s): E86.0 - Dehydration (3) Lactic acidosis Current visit: Yes Status: Acute Category: Medical Code(s): E87.2 - Acidosis (4) Hyperglycemia Current visit: Yes Status: Acute Category: Medical Code(s): R73.9 - Hyperglycemia, unspecified (5) Type 2 diabetes mellitus Current visit: Yes Status: Chronic Category: Medical Code(s): E11.9 - Type 2 diabetes mellitus without complications (6) Tension headache Current visit: Yes Status: Acute Category: Medical Code(s): G44.209 - Tension-type headache, unspecified, not intractable - Assessment and plan all Dx Assessment and Plan for all problems:: Discharge home on continued dose of Zithromax. Tramadol for headache. Remain off work and f/u in 2 days. Plan to arrange for appt with hoop puncher as outpt.
--- NOTE | 2017-07-08 08:41 | P.PN_ITS ---
Internal Medicine - PN: Subj *Date: 07/08/17 *Time: 08:38 Interval history: Frequency and intensity of cough has improved some. Woke again with headache this AM. Still having some diarrhea. Eating OK and tolerating diet. Sugars have improved. Exam Vital signs and Labs for Last 24 Hours: Temp Pulse Resp BP Pulse Ox 97.7 F 84 18 129/82 96 07/08/17 04:00 07/08/17 04:00 07/08/17 04:00 07/08/17 04:00 07/08/17 04:00 Laboratory Results - last 24 hr 07/07/17 06:26: Total Counted 100, Neutrophils % (Manual) 28 L, Lymphocytes % ( Manual) 42, Atypical Lymphs % 21.0, Monocytes % (Manual) 6, Eosinophils % ( Manual) 3, Platelet Estimate Slight increase, RBC Morphology Normal 07/07/17 11:38: POC Glucose 207 07/07/17 16:53: POC Glucose 146 07/07/17 20:31: POC Glucose 158 07/08/17 06:03: POC Glucose 136 07/08/17 06:15: WBC 13.7 H, RBC 4.71, Hgb 14.1, Hct 44.8, MCV 95.2, MCH 30.0, MCHC 31.5 L, RDW 14.0, Plt Count 440 H, MPV 8.0, Neut % (Auto) 35.0 L, Lymph % ( Auto) 52.4 H, [place] % (Auto) 9.3, Eos % (Auto) 2.0, Baso % (Auto) 1.3, Neut # ( Auto) 4.8, Lymph # (Auto) 7.2 H, [place] # (Auto) 1.3 H, Eos # (Auto) 0.3, Baso # ( Auto) 0.2, Total Counted 100, Neutrophils % (Manual) 47, Lymphocytes % (Manual) 49, Monocytes % (Manual) 3, Eosinophils % (Manual) 1, Platelet Estimate Slight increase, RBC Morphology Normal I & O for Last 24 hours: Intake & Output 07/05/17 07/06/17 07/07/17 07/08/17 11:59 11:59 11:59 12:59 Intake Total 3760 / 3760 5543 / 5543 Balance 3760 / 3760 5543 / 5543 Weight 205 lb 9 oz 212 lb - Constitutional no acute distress - *Routine HEENT Exam ENT: Present: mucous membranes moist - *Routine Respiratory Exam Present: CTA bilaterally - *Routine Cardiovascular Exam Present: RRR Assessment and Plan (1) Bronchitis Current visit: Yes Status: Acute Category: Medical Code(s): J40 - Bronchitis, not specified as acute or chronic (2) Dehydration Current visit: Yes Status: Acute Category: Medical Code(s): E86.0 - Dehydration (3) Lactic acidosis Current visit: Yes Status: Acute Category: Medical Code(s): E87.2 - Acidosis (4) Hyperglycemia Current visit: Yes Status: Acute Category: Medical Code(s): R73.9 - Hyperglycemia, unspecified (5) Type 2 diabetes mellitus Current visit: Yes Status: Chronic Category: Medical Code(s): E11.9 - Type 2 diabetes mellitus without complications (6) Tension headache Current visit: Yes Status: Acute Category: Medical Code(s): G44.209 - Tension-type headache, unspecified, not intractable - Assessment and plan all Dx Assessment and Plan for all problems:: Discharge home on continued dose of Zithromax. Tramadol for headache. Remain off work and f/u in 2 days. Plan to arrange for appt with retail warehouse associate as outpt.
--- NOTE | 2017-07-08 10:53 | HMH.DCSUM ---
General - General Admission date: 07/06/17 <Rosanne Gonzalez - 07/08/17 10:59> Discharge date: 07/08/17 <Rosanne Gonzalez - 07/08/17 10:59> HPI HPI: Ms. Garcia is a 36yo female who was seen in the office of A on 07/03 and diagnosed with bronchitis. She was given a dexa shot and started on levaquin and tussigon. She went to the ER the night after her appt d/t feeling poorly. Her glucose was elevated in the 500's, her lactic acid was high, and a CXR showed no pneumonia. She was sent home and followed up in the office today. Her glucose was 324 today fasting. She is still coughing and is weak. She has been coughing so hard she vomits. She has had decreased appetitie as well and appeared dehydrated. She was admitted for further evaluation and treatment. <Rosanne Gonzalez - 07/08/17 10:59> Hospital Course Hospital Course: She was admitted for hydration and repeat labs to r/o DKA. She was switched to Zithromax pending a PCR respiratory panel. Her PCR panel was negative. Her labs improved. IVF hydration and Azithromycin were continued. The frequency and intensity of her cough improved. She did have a persistent headache as well as some diarrhea. She began tolerating a diet and glucose levels improved. She was stable to be discharged home on Zithromax and tramadol for her headache. She will remain off work and f/u in 2 days. Will plan to arrange for appt with an evp business development as outpt. <Rosanne Gonzalez - 07/08/17 10:59> Objective Vital signs: Temp Pulse Resp BP Pulse Ox 97.7 F 84 18 129/82 96 07/08/17 04:00 07/08/17 04:00 07/08/17 04:00 07/08/17 04:00 07/08/17 04:00 <Clyde Almodovar - 07/09/17 08:23> Temp Pulse Resp BP Pulse Ox 97.7 F 84 18 129/82 96 07/08/17 04:00 07/08/17 04:00 07/08/17 04:00 07/08/17 04:00 07/08/17 04:00 <Rosanne Gonzalez 07/08/17 10:59> Narrative: - Constitutional Comments: Does not appear to feel well - *Routine HEENT Exam Head: Present: normocephalic, atraumatic Eye: Present: EOMI, PERRL ENT: Present: mucous membranes dry - *Routine Neck Exam Present: supple, full ROM - *Routine Respiratory Exam Present: CTA bilaterally Comments: coughing - *Routine Cardiovascular Exam Present: tachycardia - *Routine Abdominal Exam Present: soft, normoactive bowel sounds, tenderness (diffuse) - *Routine Extremities Exam Absent: edema - *Routine Skin Exam Present: intact - *Routine Neurological Exam Present: alert, oriented X3 <Rosanne Gonzalez - 07/08/17 10:59> Results Labs on day of discharge: Labs from last 24 hours 07/08/17 07/08/17 07/07/17 06:15 06:03 20:31 WBC 13.7 H RBC 4.71 Hgb 14.1 Hct 44.8 MCV 95.2 MCH 30.0 MCHC 31.5 L RDW 14.0 Plt Count 440 H MPV 8.0 Neut % (Auto) 35.0 L Lymph % (Auto) 52.4 H [place] % (Auto) 9.3 Eos % (Auto) 2.0 Baso % (Auto) 1.3 Neut # (Auto) 4.8 Lymph # (Auto) 7.2 H [place] # (Auto) 1.3 H Eos # (Auto) 0.3 Baso # (Auto) 0.2 Total Counted 100 Neutrophils % (Manual) 47 Lymphocytes % (Manual) 49 Atypical Lymphs % Monocytes % (Manual) 3 Eosinophils % (Manual) 1 Platelet Estimate Slight increase RBC Morphology Normal POC Glucose 136 158 07/07/17 07/07/17 07/07/17 16:53 11:38 06:26 WBC RBC Hgb Hct MCV MCH MCHC RDW Plt Count MPV Neut % (Auto) Lymph % (Auto) [place] % (Auto) Eos % (Auto) Baso % (Auto) Neut # (Auto) Lymph # (Auto) [place] # (Auto) Eos # (Auto) Baso # (Auto) Total Counted 100 Neutrophils % (Manual) 28 L Lymphocytes % (Manual) 42 Atypical Lymphs % 21.0 Monocytes % (Manual) 6 Eosinophils % (Manual) 3 Platelet Estimate Slight increase RBC Morphology Normal POC Glucose 146 207 <Rosanne Gonzalez - 07/08/17 10:59> DS: Diagnosis - Discharge Diagn
--- NOTE | 2017-07-08 10:59 | P.DS_ITS ---
General - General Admission date: 07/06/17 <Rosanne Gonzalez - 07/08/17 10:59> Discharge date: 07/08/17 <Rosanne Gonzalez - 07/08/17 10:59> HPI HPI: Ms. Garcia is a 36yo female who was seen in the office of A on 07/03 and diagnosed with bronchitis. She was given a dexa shot and started on levaquin and tussigon. She went to the ER the night after her appt d/t feeling poorly. Her glucose was elevated in the 500's, her lactic acid was high, and a CXR showed no pneumonia. She was sent home and followed up in the office today. Her glucose was 324 today fasting. She is still coughing and is weak. She has been coughing so hard she vomits. She has had decreased appetitie as well and appeared dehydrated. She was admitted for further evaluation and treatment. <Rosanne Gonzalez - 07/08/17 10:59> Hospital Course Hospital Course: She was admitted for hydration and repeat labs to r/o DKA. She was switched to Zithromax pending a PCR respiratory panel. Her PCR panel was negative. Her labs improved. IVF hydration and Azithromycin were continued. The frequency and intensity of her cough improved. She did have a persistent headache as well as some diarrhea. She began tolerating a diet and glucose levels improved. She was stable to be discharged home on Zithromax and tramadol for her headache. She will remain off work and f/u in 2 days. Will plan to arrange for appt with an speech language pathologist as outpt. <Rosanne Gonzalez - 07/08/17 10:59> Objective Vital signs: Temp Pulse Resp BP Pulse Ox 97.7 F 84 18 129/82 96 07/08/17 04:00 07/08/17 04:00 07/08/17 04:00 07/08/17 04:00 07/08/17 04:00 <Clyde Almodovar - 07/09/17 08:23> Temp Pulse Resp BP Pulse Ox 97.7 F 84 18 129/82 96 07/08/17 04:00 07/08/17 04:00 07/08/17 04:00 07/08/17 04:00 07/08/17 04:00 <Rosanne Gonzalez 07/08/17 10:59> Narrative: - Constitutional Comments: Does not appear to feel well - *Routine HEENT Exam Head: Present: normocephalic, atraumatic Eye: Present: EOMI, PERRL ENT: Present: mucous membranes dry - *Routine Neck Exam Present: supple, full ROM - *Routine Respiratory Exam Present: CTA bilaterally Comments: coughing - *Routine Cardiovascular Exam Present: tachycardia - *Routine Abdominal Exam Present: soft, normoactive bowel sounds, tenderness (diffuse) - *Routine Extremities Exam Absent: edema - *Routine Skin Exam Present: intact - *Routine Neurological Exam Present: alert, oriented X3 <Scottie Gonzaleza - 07/08/17 10:59> Results Labs on day of discharge: Labs from last 24 hours 07/08/17 07/08/17 07/07/17 06:15 06:03 20:31 WBC 13.7 H RBC 4.71 Hgb 14.1 Hct 44.8 MCV 95.2 MCH 30.0 MCHC 31.5 L RDW 14.0 Plt Count 440 H MPV 8.0 Neut % (Auto) 35.0 L Lymph % (Auto) 52.4 H [place] % (Auto) 9.3 Eos % (Auto) 2.0 Baso % (Auto) 1.3 Neut # (Auto) 4.8 Lymph # (Auto) 7.2 H [place] # (Auto) 1.3 H Eos # (Auto) 0.3 Baso # (Auto) 0.2 Total Counted 100 Neutrophils % (Manual) 47 Lymphocytes % (Manual) 49 Atypical Lymphs % Monocytes % (Manual) 3 Eosinophils % (Manual) 1
== END 2017-07-08 10:00 | disposition home or self-care (01) | DRG 202 ==
PROVIDERS: Admitting Provider Family Medicine; Family Provider Family Medicine; PCP Family Medicine; Visit Provider Family Medicine
DX: J40 Bronchitis, not specified as acute or chronic (principal); E87.2 Acidosis; E11.65 Type 2 diabetes mellitus with hyperglycemia; E86.0 Dehydration; G44.209 Tension-type headache, unspecified, not intractable
CPT/HCPCS: 36415; 71046; 80048; 80053; 82009; 82962; 83605; 85007; 85025; 87486; 87581; 87633; 87798; J0456

== ENCOUNTER → 2017-08-28 10:03 | Outpatient (CLI) | payer BC, SELFPAY ==
[2017-08-28 11:15] LABS: Alanine Aminotransferase 64 U/L (12-78); Albumin Level 4.1 gm/dL (3.4-5.0); Alkaline Phosphatase 113 U/L (46-116); Anion Gap 15.6 mEq/L (5-15); Aspartate Amino Transferase 53 U/L (15-37); Bilirubin,Total 0.4 mg/dL (0.2-1.0); Blood Urea Nitrogen 11 mg/dL (7-18); Calcium 10.3 mg/dL (8.5-10.1); Carbon Dioxide 26 mmol/L (21.0-32.0); Chloride 98 mmol/L (98-107); Chol/HDL Ratio 7.1 (1-3.5); Cholesterol 262 mg/dL (140-200); Creatinine,Serum 0.69 mg/dL (0.55-1.02); Estimated Glomerular Filt Rate 96 ml/min (>60); GFR (African American) 116 ML/MIN (>60); Globulin 4.3 gm/dl (1.3-3.2); Glucose 223 mg/dL (74-106); HDL Cholesterol 37 mg/dL (29-89); Potassium 4.6 mmoL/L (3.5-5.1); Sodium 135 mmol/L (136-145); Total Protein,Serum 8.4 gm/dL (6.4-8.2)
[2017-08-28 11:18] LABS: Triglycerides 412 mg/dL (30-200)
== END ==
PROVIDERS: Visit Provider Family Medicine
DX: E78.5 Hyperlipidemia, unspecified (principal); E11.9 Type 2 diabetes mellitus without complications
CPT/HCPCS: 36415; 80053; 80061; 83036

== ENCOUNTER → 2017-11-30 10:17 | Outpatient (CLI) | payer BC, SELFPAY ==
[2017-11-30 11:21] LABS: Hemoglobin A1C 6.6 % (0.0-7.0)
[2017-11-30 11:51] LABS: Anion Gap 11.7 mEq/L (5-15); Blood Urea Nitrogen 13 mg/dL (7-18); Calcium 9.5 mg/dL (8.5-10.1); Carbon Dioxide 26 mmol/L (21.0-32.0); Chloride 105 mmol/L (98-107); Chol/HDL Ratio 5.8 (1-3.5); Cholesterol 219 mg/dL (140-200); Creatinine,Serum 0.68 mg/dL (0.55-1.02); Estimated Glomerular Filt Rate 97 ml/min (>60); GFR (African American) 117 ML/MIN (>60); Glucose 133 mg/dL (74-106); HDL Cholesterol 38 mg/dL (29-89); LDL Cholesterol 134 mg/dL (0-130); Potassium 4.7 mmoL/L (3.5-5.1); Sodium 138 mmol/L (136-145); Triglycerides 234 mg/dL (30-200); VLDL Cholesterol 47 mg/dL (0-40)
== END ==
PROVIDERS: Visit Provider Family Medicine
DX: E78.5 Hyperlipidemia, unspecified (principal); E11.9 Type 2 diabetes mellitus without complications
CPT/HCPCS: 36415; 80048; 80061; 83036

== ENCOUNTER → 2018-03-30 10:48 | Outpatient (CLI) | payer BC, SELFPAY ==
[2018-03-30 11:18] LABS: Hemoglobin A1C 6.2 % (0.0-7.0)
[2018-03-30 11:47] LABS: Alanine Aminotransferase 31 U/L (12-78); Albumin Level 3.4 gm/dL (3.4-5.0); Albumin/Globulin Ratio 0.9 (1.1-1.8); Alkaline Phosphatase 106 U/L (46-116); Anion Gap 13.2 mEq/L (5-15); Aspartate Amino Transferase 20 U/L (15-37); Bilirubin,Total 0.3 mg/dL (0.2-1.0); Blood Urea Nitrogen 12 mg/dL (7-18); Calcium 9.2 mg/dL (8.5-10.1); Carbon Dioxide 26 mmol/L (21.0-32.0); Chloride 104 mmol/L (98-107); Chol/HDL Ratio 5.1 (1-3.5); Cholesterol 218 mg/dL (140-200); Creatinine,Serum 0.62 mg/dL (0.55-1.02); Estimated Glomerular Filt Rate 108 ml/min (>60); GFR (African American) 130 ML/MIN (>60); Glucose 143 mg/dL (74-106); HDL Cholesterol 43 mg/dL (29-89); LDL Cholesterol 143 mg/dL (0-130); Potassium 4.2 mmoL/L (3.5-5.1); Sodium 139 mmol/L (136-145); Total Protein,Serum 7.4 gm/dL (6.4-8.2); Triglycerides 158 mg/dL (30-200); VLDL Cholesterol 32 mg/dL (0-40)
== END ==
PROVIDERS: Visit Provider Family Medicine
DX: E78.5 Hyperlipidemia, unspecified (principal); E11.9 Type 2 diabetes mellitus without complications
CPT/HCPCS: 36415; 80053; 80061; 83036

== ENCOUNTER → 2018-10-15 08:16 | Outpatient (CLI) | payer BC, SELFPAY ==
[2018-10-15 09:56] LABS: Hemoglobin A1C 6.6 % (0.0-7.0)
[2018-10-15 10:45] LABS: Alanine Aminotransferase 35 U/L (12-78); Albumin Level 3.6 gm/dL (3.4-5.0); Albumin/Globulin Ratio 0.9 (1.1-1.8); Alkaline Phosphatase 129 U/L (46-116); Anion Gap 11.3 mEq/L (5-15); Aspartate Amino Transferase 18 U/L (15-37); Bilirubin,Total 0.5 mg/dL (0.2-1.0); Blood Urea Nitrogen 15 mg/dL (7-18); Calcium 9.3 mg/dL (8.5-10.1); Carbon Dioxide 30 mmol/L (21.0-32.0); Chloride 104 mmol/L (98-107); Chol/HDL Ratio 3.6 (1-3.5); Cholesterol 146 mg/dL (140-200); Creatinine,Serum 0.72 mg/dL (0.55-1.02); Estimated Glomerular Filt Rate 90 ml/min (>60); GFR (African American) 109 ML/MIN (>60); Glucose 150 mg/dL (74-106); HDL Cholesterol 41 mg/dL (29-89); LDL Cholesterol 75 mg/dL (0-130); Potassium 4.3 mmoL/L (3.5-5.1); Sodium 141 mmol/L (136-145); Total Protein,Serum 7.6 gm/dL (6.4-8.2); Triglycerides 148 mg/dL (30-200); VLDL Cholesterol 30 mg/dL (0-40)
== END ==
PROVIDERS: Visit Provider Family Medicine
DX: E11.9 Type 2 diabetes mellitus without complications (principal); E78.5 Hyperlipidemia, unspecified; Z79.84 Long term (current) use of oral hypoglycemic drugs
CPT/HCPCS: 36415; 80053; 80061; 83036

== ENCOUNTER → 2019-04-29 10:11 | Outpatient (CLI) | payer BC, SELFPAY ==
[2019-04-29 11:44] LABS: Hemoglobin A1C 7.9 % (0.0-7.0)
[2019-04-29 11:56] LABS: Alanine Aminotransferase 28 U/L (12-78); Albumin Level 3.6 gm/dL (3.4-5.0); Alkaline Phosphatase 135 U/L (46-116); Anion Gap 14.4 mEq/L (5-15); Aspartate Amino Transferase 18 U/L (15-37); Bilirubin,Total 0.5 mg/dL (0.2-1.0); Blood Urea Nitrogen 11 mg/dL (7-18); Calcium 9.4 mg/dL (8.5-10.1); Carbon Dioxide 28 mmol/L (21.0-32.0); Chloride 103 mmol/L (98-107); Chol/HDL Ratio 3.7 (1-3.5); Cholesterol 172 mg/dL (140-200); Creatinine,Serum 0.72 mg/dL (0.55-1.02); Estimated Glomerular Filt Rate 90 ml/min (>60); GFR (African American) 109 ML/MIN (>60); Globulin 3.6 gm/dl (1.3-3.2); Glucose 179 mg/dL (74-106); HDL Cholesterol 46 mg/dL (29-89); LDL Cholesterol 89 mg/dL (0-130); Potassium 4.4 mmoL/L (3.5-5.1); Sodium 141 mmol/L (136-145); Thyroid Stimulating Hormone 1.77 uIU/ml (0.358-3.740); Total Protein,Serum 7.2 gm/dL (6.4-8.2); Triglycerides 187 mg/dL (30-200); VLDL Cholesterol 37 mg/dL (0-40)
== END ==
PROVIDERS: Visit Provider Family Medicine
DX: E11.9 Type 2 diabetes mellitus without complications (principal); E78.5 Hyperlipidemia, unspecified; R53.83 Other fatigue; Z79.84 Long term (current) use of oral hypoglycemic drugs
CPT/HCPCS: 36415; 80053; 80061; 83036; 84443

== ENCOUNTER → 2019-11-08 07:29 | Outpatient (CLI) | payer BC, SELFPAY ==
[2019-11-08 07:51] LABS: Basophils # 0.1 K/mm3 (0-0.2); Basophils % 0.9 % (0.1-2.0); Eosinophils # 0.4 K/mm3 (0.0-0.4); Eosinophils % 2.4 % (0.1-12.0); Hematocrit 43.8 % (37.0-47.0); Hemoglobin 14.9 g/dL (12.2-16.2); Lymphocytes % 34.5 % (10-50); Mean Corpuscular HGB Conc 33.9 g/dL (31.8-35.4); Mean Corpuscular Hemoglobin 31.5 pg (27.0-31.2); Mean Corpuscular Volume 92.9 fl (81-99); Mean Platelet Volume 7.6 fl (7.4-10.4); Monocytes # 1.4 K/mm3 (0.1-1.0); Monocytes % 9.6 % (1.7-9.3); Neutrophils # 7.7 K/mm3 (1.8-7.8); Neutrophils % 52.6 % (37.0-80.0); Platelet Count 431 K/mm3 (142-424); Red Blood Count 4.72 M/mm3 (4.20-5.40); Red Cell Distribution Width 14.1 % (11.5-17.5); White Blood Count 14.6 K/mm3 (4.8-10.8)
[2019-11-08 08:57] LABS: Chloride 102 mmol/L (98-107); Potassium 4.4 mmoL/L (3.5-5.1); Sodium 135 mmol/L (136-145)
[2019-11-08 09:00] LABS: Alanine Aminotransferase 40 U/L (12-78); Albumin Level 3.8 g/dl (3.5-5.0); Albumin/Globulin Ratio 1.3 (1.1-1.8); Alkaline Phosphatase 140 U/L (38-126); Anion Gap 13.4 mEq/L (5-15); Aspartate Amino Transferase 30 U/L (14-36); Bilirubin,Total 0.5 mg/dl (0.2-1.3); Blood Urea Nitrogen 12 mg/dl (7-17); Calcium 9.3 mg/dl (8.4-10.2); Carbon Dioxide 24 mmol/L (22.0-30.0); Chol/HDL Ratio 4.1 (1-3.5); Cholesterol 156 mg/dl (140-200); Estimated Glomerular Filt Rate 111 ml/min (>60); GFR (African American) 134 ML/MIN (>60); Globulin 2.9 g/dL (1.3-3.2); Glucose 191 mg/dl (74-100); HDL Cholesterol 38 mg/dl (40-60); Total Protein,Serum 6.7 g/dl (6.3-8.2); Triglycerides 304 mg/dl (30-150); VLDL Cholesterol 61 mg/dL (0-40)
[2019-11-08 09:04] LABS: Hemoglobin A1C 7.8 % (4.0-6.0)
[2019-11-08 09:11] LABS: Direct LDL Cholesterol 87.67 mg/dL (100-129)
== END ==
PROVIDERS: Visit Provider Family Medicine
DX: E78.5 Hyperlipidemia, unspecified (principal); R00.0 Tachycardia, unspecified; E11.9 Type 2 diabetes mellitus without complications
CPT/HCPCS: 36415; 80053; 80061; 83036; 85025

== ENCOUNTER 2020-01-22 17:43 | Emergency (ER) | payer BC, SELFPAY ==
[2020-01-22 18:00] VITALS: BP 114/80; PULSE 89; RESP 18; TEMP 36.6; O2SAT 100; BMI 32.3
[2020-01-22 18:19] LABS: Apearance,Urine Clear (Clear); Color,Urine Yellow (Yellow)
[2020-01-22 18:20] LABS: Bilirubin,Urine Negative (Negative); Blood, Urine Trace (Negative); Glucose,Urine (UA) 1000 (Negative); Ketones,Urine Negative (Negative); PH,Urine 5.5 (5.0-8.5); Protein,Urine Negative (Negative); UTC Leukocyte Esterase,Urine 1+ (Negative); Urobilinogen,Urine 0.2 EU/dl (0.2)
[2020-01-22 18:21] LABS: UTC Nitrate,Urine Negative (Negative)
--- NOTE | 2020-01-22 18:27 | HMH.EDUTC ---
[facility] [place] Clinical Impression: UTI (urinary tract infection) Qualifiers: Urinary tract infection type: site unspecified Hematuria presence: without hematuria Qualified Code(s): N39.0 - Urinary tract infection, site not specified Disposition: Home, Self-Care Condition on Discharge: Good Instructions: Urinary Tract Infection, DI for Urinary Tract Infection (UTI), Nitrofurantoin, Fluconazole Additional Instructions: *Increase fluids. Water not Soda or Tea *Start antibiotic immediately and be sure to take as ordered for the FULL length of time although you should start to see improvement over the next 48 hours *Pyridium as needed Remember this medication will turn your urine [place]. This is normal but it will stain what ever it gets on *You should not use Pyridium for more than 48 hours. If so , follow up with your primary physician to review urine culture and ensure that antibiotic is adequate for infection *Be SURE to follow up anytime for new or worsening symptoms with your family doctor. AND in 48 hours for urine culture results with your family doctor, if you do not have a doctor then you may call back to the [facility] [[email or web address]] for urine culture results and further treatment. We do recommend that you choose and establish care with a Primary Care Physician. AND follow up with them in 10-14 days to repeat UA to ensure infection is resolved and blood no longer present *Be sure to let your PCP know that we sent urine cultures from the [facility] [[email or web address]] so they can follow up to ensure that you area the on the correct antibiotic Call your doctor office and make appointment for 48 hours (2 days from today) to follow up and get the results of your urine culture and further treatment You had glucose in your urine make sure to follow up with PCP Prescriptions: Fluconazole [Diflucan 150mg tab] 150 mg PO DIRECTED #2 tab Transmission Status: Pending to [facility] Nitrofurantoin Monohyd/M-Cryst [Macrobid 100 mg Capsule] 100 mg PO BID 10 Days #20 cap Transmission Status: Pending to [facility] Phenazopyridine HCl [Pyridium 200mg Tablet] 200 pow PO TID #6 tab Transmission Status: Pending to [facility] Referrals: Clyde Almodovar MD [Primary Care Provider] - As needed Time of Disposition: 18:34 Medical Decision Making - Solo Inquiry Pt receiving controlled substance: No Solo was queried for this patient: No Vital Signs: 01/22/20 18:00 Temperature 97.8 F Temperature Source Oral Pulse Rate [Right Brachial] 89 Respiratory Rate 18 Blood Pressure [Right Arm] 114/80 Blood Pressure Mean [Right Arm] 91 Blood Pressure Source [Right Arm] Automatic Cuff Blood Pressure Position [Right Arm] Sitting 02 Sat by Pulse Oximetry 100 Oxygen Delivery Method Room Air - Lab Data Lab results reviewed: Yes: I reviewed the patient's lab results. Lab Results 01/22/20 18:17: Urine Color Yellow, Urine Appearance Clear, Urine pH 5.5, Ur Specific [place] 1.010, Urine Protein Negative, Urine Glucose (UA) 1000, Urine Ketones Negative, Urine Blood Trace, Urine Nitrate Negative, Urine Bilirubin Negative, Urine Urobilinogen 0.2, Ur Leukocyte Esterase 1+ A Orders (Tests/Meds): ORDERS Category Date Time Status Urine Culture Stat Micro 01/22/20 18:21 Ordered [facility] [place] HPI - General Stated complaint: possible uti Time Seen by Provider: 01/22/20 18:15 Mode of Arrival: Ambulatory Source of Information: Patient Limitations: No Limitations Description of Symptoms (Recalled from Triage Doc. by RN): PATIENT C/O BURNING WITH URINATION X 2 DAYS HEENT Symptoms (Recalled from RN notes): No Resp Symptoms (Recalled from RN notes): No Skin Symptoms (Recalled from RN notes): No MS Symptoms (Recalled from RN notes): No Functional Status (Recalled from RN notes): WNL - History of Present Illness Provider Complaint: Patient states that she has been having some burning with urination and frequency States that she is a diabetic and gets
[2020-01-22 18:47] VITALS: BP 114/80; PULSE 89; RESP 18; TEMP 36.6; O2SAT 100
== END 2020-01-22 18:49 | disposition home or self-care (01) ==
PROVIDERS: Emergency Provider Nurse Practitioner; PCP Family Medicine
DX: N30.00 Acute cystitis without hematuria (principal); E11.9 Type 2 diabetes mellitus without complications; K21.9 Gastro-esophageal reflux disease without esophagitis; E78.5 Hyperlipidemia, unspecified; G43.709 Chronic migraine without aura, not intractable, without status migrainosus; Z79.899 Other long term (current) drug therapy; Z90.49 Acquired absence of other specified parts of digestive tract
CPT/HCPCS: 81003; 87086; 87088; 87186; 99201

== ENCOUNTER → 2020-03-17 10:52 | Outpatient (CLI) | payer BC, SELFPAY ==
[2020-03-17 12:11] LABS: Basophils # 0.2 K/mm3 (0-0.2); Basophils % 1.4 % (0.1-2.0); Eosinophils # 0.2 K/mm3 (0.0-0.4); Eosinophils % 1.9 % (0.1-12.0); Hematocrit 49.9 % (37.0-47.0); Hemoglobin 16.1 g/dL (12.2-16.2); Lymphocytes # 4.4 K/mm3 (0.7-4.5); Lymphocytes % 37.5 % (10-50); Mean Corpuscular HGB Conc 32.2 g/dL (31.8-35.4); Mean Corpuscular Hemoglobin 32.2 pg (27.0-31.2); Mean Corpuscular Volume 99.8 fl (81-99); Mean Platelet Volume 8.2 fl (7.4-10.4); Monocytes # 1.3 K/mm3 (0.1-1.0); Neutrophils # 5.7 K/mm3 (1.8-7.8); Neutrophils % 48.2 % (37.0-80.0); Platelet Count 535 K/mm3 (142-424); Red Blood Count 4.99 M/mm3 (4.20-5.40); Red Cell Distribution Width 13.8 % (11.5-17.5); White Blood Count 11.8 K/mm3 (4.8-10.8)
[2020-03-17 16:06] LABS: Strep Scrn Group A (Rapid) Negative (Negative)
== END ==
PROVIDERS: PCP Family Medicine; Visit Provider Nurse Practitioner Family
DX: Z03.818 Encounter for observation for suspected exposure to other biological agents ruled out (principal)
CPT/HCPCS: 36415; 85025; 87275; 87276; 87430; U0003

== ENCOUNTER → 2020-04-29 10:25 | Outpatient (CLI) | payer BC, SELFPAY ==
[2020-04-29 12:23] LABS: Chloride 99 mmol/L (98-107)
[2020-04-29 12:24] LABS: Potassium 4.2 mmoL/L (3.5-5.1); Sodium 135 mmol/L (136-145)
[2020-04-29 12:26] LABS: Alanine Aminotransferase 51 U/L (12-78); Albumin Level 4.6 g/dl (3.5-5.0); Albumin/Globulin Ratio 1.4 (1.1-1.8); Alkaline Phosphatase 190 U/L (38-126); Anion Gap 18.2 mEq/L (5-15); Aspartate Amino Transferase 39 U/L (14-36); Bilirubin,Total 0.6 mg/dl (0.2-1.3); Blood Urea Nitrogen 9 mg/dl (7-17); Carbon Dioxide 22 mmol/L (22.0-30.0); Estimated Glomerular Filt Rate 137 ml/min (>60); GFR (African American) 165 ML/MIN (>60); Globulin 3.4 g/dL (1.3-3.2)
[2020-04-29 12:27] LABS: Calcium 10.4 mg/dl (8.4-10.2); Chol/HDL Ratio 7.4 (1-3.5); Cholesterol 318 mg/dl (140-200); Glucose 316 mg/dl (74-100); HDL Cholesterol 43 mg/dl (40-60)
[2020-04-29 12:46] LABS: Triglycerides 693 mg/dl (30-150)
[2020-04-29 12:50] LABS: Direct LDL Cholesterol 150.65 mg/dL (100-129)
[2020-04-29 13:39] LABS: Hemoglobin A1C 10.2 % (4.0-6.0)
== END ==
PROVIDERS: Visit Provider Family Medicine
DX: E11.9 Type 2 diabetes mellitus without complications (principal); E78.5 Hyperlipidemia, unspecified
CPT/HCPCS: 36415; 80053; 80061; 83036

== ENCOUNTER 2020-05-01 15:47 | Emergency (ER) | payer BC, SELFPAY ==
--- NOTE | 2020-05-01 16:20 | HMH.EDUTC ---
[facility] Clinical Impression: Exposure to COVID-19 virus Disposition: Home, Self-Care Condition on Discharge: Good Instructions: Preventing the Spread of Coronavirus Discharge Instructions Additional Instructions: Drink plenty of fluids. Take tylenol for pain or fever. Return if you begin to have difficulty breathing. Follow up with your regular doctor. GO TO THE ER FOR ANY WORSENING SYMPTOMS Referrals: Clyde Almodovar MD [Primary Care Provider] - Time of Disposition: 16:28 Medical Decision Making - Medical Records Medical records reviewed: No: I reviewed the patient's medical records. - Solo Inquiry Pt receiving controlled substance: No Vital Signs: 05/01/20 16:26 05/01/20 16:34 Temperature 97.4 F L 97.4 F L Temperature Source Oral Pulse Rate 83 Pulse Rate [Right Brachial] 83 Respiratory Rate 14 14 Blood Pressure 143/89 H Blood Pressure [Right Arm] 143/89 H Blood Pressure Mean [Right Arm] 107 Blood Pressure Source [Right Arm] Automatic Cuff Blood Pressure Position [Right Arm] Sitting 02 Sat by Pulse Oximetry 95 Oxygen Delivery Method Room Air Orders (Tests/Meds): ORDERS Category Date Time Status Covid-19 Nasal PCR ([facility]) Routine Lab 05/01/20 16:00 [place] [facility] [place] - General Stated complaint: COVID test exposed Time Seen by Provider: 05/01/20 16:20 - History of Present Illness Provider Complaint: She states that she was exposed to covid-19 earlier this week. So far, she denies any symptoms. - Related Data Home Medications Medication Instructions Recorded Confirmed Atorvastatin Calcium [Lipitor 40mg 40 mg PO HS 01/22/20 01/22/20 Tab] Clomipramine HCl [Anafranil] 50 mg PO BID 01/22/20 01/22/20 Dapagliflozin/Metformin HCl 1 each PO DAILY 01/22/20 01/22/20 [Xigduo Xr 5 mg-1,000 mg Tablet] Exenatide Microspheres [Bydureon 2 mg SQ WEEKLY 01/22/20 01/22/20 Bcise] Rizatriptan Benzoate [Maxalt] 10 mg PO DAILYP PRN 01/22/20 01/22/20 Temazepam [Restoril] 15 mg PO HS 09/24/20 09/24/20 Triamterene/Hydrochlorothiazid 1 each PO DAILYP PRN 01/22/20 01/22/20 [Triamterene-Hctz 37.5-25 mg Tb] clonazePAM [Clonazepam] 0.5 mg PO BID 01/22/20 01/22/20 Previous Rx's Medication Instructions Recorded Fluconazole [Diflucan 150mg tab] 150 mg PO DIRECTED #2 tab 01/22/20 Nitrofurantoin Monohyd/M-Cryst 100 mg PO BID 10 Days #20 cap 01/22/20 [Macrobid 100 mg Capsule] Phenazopyridine HCl [Pyridium 200 pow PO TID #6 tab 01/22/20 200mg Tablet] Allergies Allergy/AdvReac Type Severity Reaction Status Date / Time No Known Allergies Allergy Verified 12/18/18 18:23 [facility] History - Hepatitis A Screen Attestation statement:: This patient has been screened for Hepatitis A risk factors. I have reviewed the patient's past medical history: Yes Medical History: Reports:: Cancer, Diabetes Mellitus Type 2, Gastroesophageal Reflux Disease(GERD), Hyperlipidemia, Migraine Denies:: Diabetes Mellitus Type 1, MRSA Other Surgeries: Yes: Appendectomy, Cancer Surgery, Splenectomy, Other Amputation: No Fractures: No Comment: Splenectomy, Bx of thyroid nodule, Uterine repair with cyst removal, [place] tooth, Basal Cell removed from back, Cholecystectomy - Social History Smoking Status: Never smoker Alcohol Intake: never Alcohol Intake Frequency:: a few times a month Substance Use Type: denies use Occupational Status: other Housing: house Household Members: spouse, children Family Hx:: Diabetes ROS Obtained: Yes All systems reviewed & no additional complaints - Constitutional Constitutional: Reports system reviewed and no additional complaints, except as docu - Eyes Eyes: Reports system reviewed and no additional complaints, except as docu - ENT Ears, Nose, Mouth, and Throat: Reports system reviewed and no additional complaints, except as docu - Cardiovascular Cardiovascular: Reports system reviewed and no additional co
[2020-05-01 16:26] VITALS: BP 143/89; PULSE 83; RESP 14; TEMP 36.3; O2SAT 95; BMI 31.9
[2020-05-01 16:34] VITALS: BP 143/89; PULSE 83; RESP 14; TEMP 36.3; O2SAT 95
== END 2020-05-01 16:40 | disposition home or self-care (01) ==
PROVIDERS: Emergency Provider Nurse Practitioner Family; PCP Family Medicine
DX: Z20.822 Contact with and (suspected) exposure to COVID-19 (principal); E78.5 Hyperlipidemia, unspecified; K21.9 Gastro-esophageal reflux disease without esophagitis; E11.9 Type 2 diabetes mellitus without complications; G43.709 Chronic migraine without aura, not intractable, without status migrainosus; Z79.899 Other long term (current) drug therapy
CPT/HCPCS: 99202; G0463; U0003

== ENCOUNTER 2020-07-17 22:15 | Emergency (ER) | payer BC, SELFPAY ==
[2020-07-17 22:25] VITALS: BP 150/92; PULSE 126; RESP 24; TEMP 36.5; O2SAT 98; BMI 32.3
[2020-07-17 22:35] VITALS: BP 116/76; PULSE 117; RESP 18; O2SAT 98
[2020-07-17 22:35] LABS: POC Glucose,Bedside 521 (70-110)
[2020-07-17 22:41] LABS: Microscopic, Urine URINE MICROSCOPIC (MICROSCOPIC)
[2020-07-17 22:42] LABS: Basophils # 0.2 K/mm3 (0-0.2); Basophils % 1.3 % (0.1-2.0); Eosinophils # 0.2 K/mm3 (0.0-0.4); Eosinophils % 1.2 % (0.1-12.0); Hematocrit 47.3 % (37.0-47.0); Hemoglobin 14.6 g/dL (12.2-16.2); Lymphocytes % 39.6 % (10-50); Mean Corpuscular HGB Conc 30.9 g/dL (31.8-35.4); Mean Corpuscular Volume 100.1 fl (81-99); Mean Platelet Volume 8.2 fl (7.4-10.4); Monocytes # 1.6 K/mm3 (0.1-1.0); Monocytes % 10.5 % (1.7-9.3); Neutrophils # 7.1 K/mm3 (1.8-7.8); Neutrophils % 47.4 % (37.0-80.0); Red Blood Count 4.73 M/mm3 (4.20-5.40); Red Cell Distribution Width 13.7 % (11.5-17.5); White Blood Count 15.1 K/mm3 (4.8-10.8)
--- NOTE | 2020-07-17 22:48 | HMH.EDGENADL ---
ED Disposition Clinical Impression: Hyperglycemia without ketosis, Obesity (BMI 30.0-34.9) Type 2 diabetes mellitus Qualifiers: Diabetes mellitus intermediate frame tender insulin use: unspecified skilled nursing insulin use status Diabetes mellitus complication status: with other specified complication Qualified Code(s): E11.69 - Type 2 diabetes mellitus with other specified complication Disposition: Home, Self-Care Condition on Discharge: Good Instructions: DI for Hyperglycemia -- Adult Additional Instructions: call pcp in am and monitor diet Referrals: Clyde Almodovar MD [Primary Care Provider] - - Critical Care Critical Care Time: No Attestation: On 07/17/20, the high probability of a clinically significant, sudden or life threatening deterioration of the following system(s) required my full and direct attention, intervention and personal management. The time I documented below is in addition to time spent performing reported procedures but includes the following listed in this critical care notation. Medical Decision Making - Medical Records Medical records reviewed: Yes: I reviewed the patient's medical records. - Solo Inquiry Pt receiving controlled substance: No Vital Signs: 07/17/20 22:25 07/17/20 22:35 Temperature 97.7 F Temperature Source Oral Pulse Rate 117 H Pulse Rate [Right] 126 H Respiratory Rate 24 18 Blood Pressure 116/76 Blood Pressure [Right Arm] 150/92 H Blood Pressure Mean [Right Arm] 111 Blood Pressure Source [Right Arm] Automatic Cuff Blood Pressure Position [Right Arm] Sitting 02 Sat by Pulse Oximetry 98 98 Oxygen Delivery Method Room Air - Lab Data Lab results reviewed: Yes: I reviewed the patient's lab results. Lab Results 07/17/20 22:20: Urine Color Yellow, Urine Appearance Clear, Urine pH 6.0, Ur Specific [place] 1.010, Urine Protein Negative, Urine Glucose (UA) 3+, Urine Ketones Negative, Urine Blood Negative, Urine Nitrate Negative, Urine Bilirubin Negative, Urine Urobilinogen 0.2, Ur Leukocyte Esterase Negative, Urine WBC Occasional, Ur Squamous Epith Cells 5-10 07/17/20 22:20: Urine HCG, Qual Negative 07/17/20 22:22: POC Glucose 521 H* 07/17/20 22:25: WBC 15.1 H, RBC 4.73, Hgb 14.6, Hct 47.3 H, MCV 100.1 H, MCH 31.0, MCHC 30.9 L, RDW 13.7, Plt Count 611 H, MPV 8.2, Neut % (Auto) 47.4, Lymph % (Auto) 39.6, [place] % (Auto) 10.5 H, Eos % (Auto) 1.2, Baso % (Auto) 1.3, Neut # (Auto) 7.1, Lymph # (Auto) 6.0 H, [place] # (Auto) 1.6 H, Eos # (Auto) 0.2, Baso # (Auto) 0.2, Total Counted 100, Neutrophils % (Manual) 44, Band Neutrophils % 1.0, Lymphocytes % (Manual) 51 H, Monocytes % (Manual) 3, Eosinophils % (Manual) 1, Platelet Estimate Slight increase, Hypochromasia 3+, Macrocytosis 1+, ESR 7 07/17/20 22:25: Sodium 131 L, Potassium 4.3, Chloride 94 L, Carbon Dioxide 25, Anion Gap 16.3 H, BUN 10, Creatinine 0.70, Estimated Creat Clear 153, Estimated GFR 93, Est GFR ( Amer) 112, Glucose 594 H*, Calcium 9.5, Total Bilirubin 0.3, AST 33, ALT 38, Alkaline Phosphatase 204 H, C-Reactive Protein 10.6 H, Total Protein 7.5, Albumin 4.2, Globulin 3.3 H, Albumin/Globulin Ratio 1.3, Amylase 72, Lipase 146, Procalcitonin 0.062, Acetone Level None detected 07/17/20 22:25: Hemoglobin A1c 11.3 H 07/17/20 23:25: POC Glucose 441 H* Result diagrams: 07/17/20 22:25 07/17/20 22:25 Orders (Tests/Meds): ED MEDICATIONS Generic Name Dose Route Start Last Admin Trade Name Freq PRN Reason Stop Dose Admin Sodium Chloride 1,000 mls @ 999 mls/hr 07/17/20 22:45 07/17/20 22:40 Sod Chlor 0.9% 1000ml Bag IV 07/17/20 23:45 999 mls/hr .Q1H1M AURELIA Administration Sodium Chloride 1,000 mls @ 999 mls/hr 07/17/20 23:15 07/17/20 23:09 Sod Chlor 0.9% 1000ml Bag IV 07/18/20 00:15 999 mls/hr .Q1H1M AURELIA Administration Discontinued Medications Generic Name Dose Route Start Last Admin Trade Name Freq PRN Reason Stop Dose Admin Insulin Human Regular 5 unit 07/17/20 23:05 07/17/20 23:09
[2020-07-17 22:49] LABS: Appearance,Urine CLEAR (Clear); Bilirubin,Urine Negative (Negative); Blood, Urine Negative (Negative); Color,Urine YELLOW (Yellow); Glucose,Urine (UA) 3+ (Negative); Ketones,Urine Negative (Negative); Leukocyte Esterase,Urine Negative (Negative); Nitrate,Urine Negative (Negative); Protein,Urine Negative (Negative); Urobilinogen,Urine 0.2 EU/dl (0.2)
[2020-07-17 22:50] LABS: Alanine Aminotransferase 38 U/L (12-78); Albumin Level 4.2 g/dl (3.5-5.0); Albumin/Globulin Ratio 1.3 (1.1-1.8); Alkaline Phosphatase 204 U/L (38-126); Amylase 72 U/L (30-110); Anion Gap 16.3 mEq/L (5-15); Aspartate Amino Transferase 33 U/L (14-36); Bilirubin,Total 0.3 mg/dl (0.2-1.3); Blood Urea Nitrogen 10 mg/dl (7-17); Calcium 9.5 mg/dl (8.4-10.2); Carbon Dioxide 25 mmol/L (22.0-30.0); Chloride 94 mmol/L (98-107); Creatinine Clearance Estimated 153 mL/min (50-200); Estimated Glomerular Filt Rate 93 ml/min (>60); GFR (African American) 112 ML/MIN (>60); Globulin 3.3 g/dL (1.3-3.2); Lipase 146 U/L (23-300); Potassium 4.3 mmoL/L (3.5-5.1); Sodium 131 mmol/L (136-145); Total Protein,Serum 7.5 g/dl (6.3-8.2)
[2020-07-17 22:53] LABS: Acetone, Serum (Rapid) None Detected (None Detect)
[2020-07-17 22:53] LABS: Urine Pregnancy, HCG Qual. Negative (Negative)
[2020-07-17 22:54] LABS: Platelet Count 611 K/mm3 (142-424)
[2020-07-17 22:55] LABS: WBC,Urine Occasional #/hpf (0-3)
[2020-07-17 22:55] LABS: C-Reactive Protein 10.6 mg/L (0-4); Hemoglobin A1C 11.3 % (4.0-6.0); MANUAL DIFFERENTIAL MANUAL DIFFERENTIAL (MANUAL DIFF)
[2020-07-17 22:56] LABS: Glucose 594 mg/dl (74-100)
--- NOTE | 2020-07-17 22:56 | PC.NURSE ---
Lab called Critical Glucose, Dr Sanon aware.
[2020-07-17 23:02] LABS: Eosinophils % 1 % (0-3); Lymphocytes % 51 % (10-50); Macrocytosis 1+; Monocytes % 3 % (2-9); Neutrophils % 44 % (42-76); Platelet Estimate Slight Increase; Total Cells Counted 100
[2020-07-17 23:03] LABS: Hypochromasia 3+
[2020-07-17 23:09] LABS: Erythrocyte Sedimentation Rate 7 mm/hr (0-20); Procalcitonin 0.062 ng/mL (0.0-2.0)
[2020-07-17 23:31] LABS: POC Glucose,Bedside 441 (70-110)
[2020-07-17 23:57] VITALS: BP 137/74; PULSE 96; RESP 16; TEMP 36.5; O2SAT 98
== END 2020-07-18 | disposition home or self-care (01) ==
PROVIDERS: Emergency Provider Emergency Medicine; PCP Family Medicine
DX: E11.65 Type 2 diabetes mellitus with hyperglycemia (principal); K21.9 Gastro-esophageal reflux disease without esophagitis; E78.5 Hyperlipidemia, unspecified; E66.9 Obesity, unspecified; Z68.32 Body mass index [BMI] 32.0-32.9, adult; G43.709 Chronic migraine without aura, not intractable, without status migrainosus; Z79.899 Other long term (current) drug therapy
CPT/HCPCS: 80053; 81001; 81025; 82009; 82150; 82962; 83036; 83690; 84145; 85007; 85025; 85651; 86140; 96365; 96366; 96375; 99282

== ENCOUNTER 2020-08-05 11:17 | Emergency (ER) | payer BC, SELFPAY ==
[2020-08-05 11:24] VITALS: BP 110/73; PULSE 108; RESP 18; TEMP 36.6; O2SAT 98; BMI 30.8
--- NOTE | 2020-08-05 11:25 | HMH.EDGENADL ---
ED Disposition Clinical Impression: Acute gastroenteritis, Hyperglycemia Disposition: Home, Self-Care Condition on Discharge: Fair Instructions: DI for Diarrhea and Traveler's Diarrhea -- Adult, Nausea and Vomiting-Adult Additional Instructions: Zofran as needed for nausea and vomiting. Outpatient diarrhea panel. See Dr. Almodovar in the office tomorrow for reevaluation. Additional instructions for VOMITING/DIARRHEA: See your physician as soon as possible for further evaluation. Return immediately if severe abdominal pain, bloody diarrhea, uncontrollable vomiting, shortness of breath, fever, vomiting of blood or abdominal distention. Prescriptions: Ondansetron [Zofran 4mg ODT] 4 mg PO TIDP PRN #10 tab.rapdis PRN Reason: Nausea And Vomiting Transmission Status: Received by [id number] Referrals: Rosanne Gonzalez PA [Primary Care Provider] - Forms: Work/School Release - Critical Care Critical Care Time: No Attestation: On 08/05/20, the high probability of a clinically significant, sudden or life threatening deterioration of the following system(s) required my full and direct attention, intervention and personal management. The time I documented below is in addition to time spent performing reported procedures but includes the following listed in this critical care notation. Medical Decision Making - Medical Records Medical records reviewed: Yes: I reviewed the patient's medical records. MR Comment: Seen in this Emergency department on 07/17/2020 for hyperglycemia, record reviewed. - Solo Inquiry Pt receiving controlled substance: No Vital Signs: 08/05/20 11:24 08/05/20 11:45 08/05/20 12:00 Temperature 98 F Temperature Source Oral Pulse Rate 96 H 94 H Pulse Rate [Radial] 108 H Respiratory Rate 18 22 18 Blood Pressure 107/68 L 111/68 Blood Pressure [Right Arm] 110/73 Blood Pressure Mean [Right Arm] 85 Blood Pressure Position [Right Arm] Sitting 02 Sat by Pulse Oximetry 98 96 97 Oxygen Delivery Method Room Air 08/05/20 13:15 Temperature Temperature Source Pulse Rate 103 H Pulse Rate [Radial] Respiratory Rate 21 Blood Pressure 111/71 Blood Pressure [Right Arm] Blood Pressure Mean [Right Arm] Blood Pressure Position [Right Arm] 02 Sat by Pulse Oximetry 99 Oxygen Delivery Method - Lab Data Lab Results 08/05/20 11:22: POC Glucose 333 H* 08/05/20 11:28: Urine Color [place], Urine Appearance Cloudy, Urine pH 5.5, Ur Specific [place] 1.010, Urine Protein Negative, Urine Glucose (UA) 3+, Urine Ketones Negative, Urine Blood 3+, Urine Nitrate Negative, Urine Bilirubin Negative, Urine Urobilinogen 0.2, Ur Leukocyte Esterase 1+ A, Urine RBC 10-20, Urine WBC 10-20, Ur Squamous Epith Cells 20-50, Urine Bacteria None 08/05/20 11:35: WBC 17.6 H, RBC 4.94, Hgb 15.6, Hct 48.1 H, MCV 97.4, MCH 31.6 H, MCHC 32.4, RDW 13.6, Plt Count 454 H, MPV 7.7, Neut % (Auto) 62.7, Lymph % (Auto) 25.6, [place] % (Auto) 9.1, Eos % (Auto) 1.2, Baso % (Auto) 1.4, Neut # (Auto) 11.1 H, Lymph # (Auto) 4.5, [place] # (Auto) 1.6 H, Eos # (Auto) 0.2, Baso # (Auto) 0.2, Total Counted 100, Neutrophils % (Manual) 67, Lymphocytes % (Manual) 30, Monocytes % (Manual) 3, Platelet Estimate Normal, Hypochromasia 1+, Macrocytosis 1+ 08/05/20 11:35: Sodium 137, Potassium 5.0, Chloride 101, Carbon Dioxide 27, Anion Gap 14.0, BUN 7, Creatinine 0.60, Estimated Creat Clear 170, Estimated GFR 111, Est GFR ( Amer) 134, Glucose 373 H, Calcium 9.9, Total Bilirubin 0.5, AST 24, ALT 22, Alkaline Phosphatase 179 H, Total Protein 7.5, Albumin 4.4, Globulin 3.1, Albumin/Globulin Ratio 1.4, Acetone Level None detected 08/05/20 12:25: Urine HCG, Qual Negative 08/05/20 13:30: POC Glucose 290 H Result diagrams: 08/05/20 11:35 08/05/20 11:35 Orders (Tests/Meds): ED MEDICATIONS Discontinued Medications Generic Name Dose Route Start Last Admin Trade Name Freq PRN Reason Stop Dose Admin Sodium Chloride 1,0
[2020-08-05 11:30] LABS: POC Glucose,Bedside 333 (70-110)
[2020-08-05 11:45] VITALS: BP 107/68; PULSE 96; RESP 22; O2SAT 96
[2020-08-05 11:45] LABS: Basophils # 0.2 K/mm3 (0-0.2); Basophils % 1.4 % (0.1-2.0); Eosinophils # 0.2 K/mm3 (0.0-0.4); Eosinophils % 1.2 % (0.1-12.0); Hematocrit 48.1 % (37.0-47.0); Hemoglobin 15.6 g/dL (12.2-16.2); Lymphocytes # 4.5 K/mm3 (0.7-4.5); Lymphocytes % 25.6 % (10-50); Mean Corpuscular HGB Conc 32.4 g/dL (31.8-35.4); Mean Corpuscular Hemoglobin 31.6 pg (27.0-31.2); Mean Corpuscular Volume 97.4 fl (81-99); Mean Platelet Volume 7.7 fl (7.4-10.4); Monocytes # 1.6 K/mm3 (0.1-1.0); Monocytes % 9.1 % (1.7-9.3); Neutrophils # 11.1 K/mm3 (1.8-7.8); Neutrophils % 62.7 % (37.0-80.0); Platelet Count 454 K/mm3 (142-424); Red Blood Count 4.94 M/mm3 (4.20-5.40); Red Cell Distribution Width 13.6 % (11.5-17.5); White Blood Count 17.6 K/mm3 (4.8-10.8)
[2020-08-05 11:49] LABS: MANUAL DIFFERENTIAL MANUAL DIFFERENTIAL (MANUAL DIFF)
[2020-08-05 12:00] VITALS: BP 111/68; PULSE 94; RESP 18; O2SAT 97
[2020-08-05 12:15] LABS: Hypochromasia 1+; Lymphocytes % 30 % (10-50); Macrocytosis 1+; Monocytes % 3 % (2-9); Neutrophils % 67 % (42-76); Platelet Estimate Normal; Total Cells Counted 100
[2020-08-05 12:29] LABS: Microscopic, Urine URINE MICROSCOPIC (MICROSCOPIC)
[2020-08-05 12:29] LABS: Chloride 101 mmol/L (98-107); Sodium 137 mmol/L (136-145)
[2020-08-05 12:30] LABS: Acetone, Serum (Rapid) None Detected (None Detect)
[2020-08-05 12:32] LABS: Alanine Aminotransferase 22 U/L (12-78); Albumin Level 4.4 g/dl (3.5-5.0); Albumin/Globulin Ratio 1.4 (1.1-1.8); Alkaline Phosphatase 179 U/L (38-126); Aspartate Amino Transferase 24 U/L (14-36); Bilirubin,Total 0.5 mg/dl (0.2-1.3); Blood Urea Nitrogen 7 mg/dl (7-17); Carbon Dioxide 27 mmol/L (22.0-30.0); Creatinine Clearance Estimated 170 mL/min (50-200); Estimated Glomerular Filt Rate 111 ml/min (>60); GFR (African American) 134 ML/MIN (>60); Globulin 3.1 g/dL (1.3-3.2); Total Protein,Serum 7.5 g/dl (6.3-8.2)
[2020-08-05 12:33] LABS: Calcium 9.9 mg/dl (8.4-10.2); Glucose 373 mg/dl (74-100)
[2020-08-05 12:33] LABS: Appearance,Urine CLOUDY (Clear); Bilirubin,Urine Negative (Negative); Blood, Urine 3+ (Negative); Color,Urine ORANGE (Yellow); Glucose,Urine (UA) 3+ (Negative); Ketones,Urine Negative (Negative); Leukocyte Esterase,Urine 1+ (Negative); Nitrate,Urine Negative (Negative); PH,Urine 5.5 (5.0-8.5); Protein,Urine Negative (Negative); Urobilinogen,Urine 0.2 EU/dl (0.2)
[2020-08-05 12:35] LABS: Urine Pregnancy, HCG Qual. Negative (Negative)
[2020-08-05 12:44] LABS: Squamous Epithelial Cell,Urine 20-50 #/hpf (0-5)
[2020-08-05 13:15] VITALS: BP 111/71; PULSE 103; RESP 21; O2SAT 99
--- NOTE | 2020-08-05 13:31 | PC.NURSE ---
ACCUCHECK 290
--- NOTE | 2020-08-05 13:36 | PC.NURSE ---
Dr Long speaking with Dr Oro
[2020-08-05 13:49] LABS: POC Glucose,Bedside 290 (70-110)
[2020-08-05 13:55] VITALS: BP 110/71; PULSE 95; RESP 18; TEMP 36.8; O2SAT 98
== END 2020-08-05 13:55 | disposition home or self-care (01) ==
PROVIDERS: Emergency Provider Emergency Medicine; PCP Physician Assistant
DX: K52.9 Noninfective gastroenteritis and colitis, unspecified (principal); E11.65 Type 2 diabetes mellitus with hyperglycemia; E78.5 Hyperlipidemia, unspecified; K21.9 Gastro-esophageal reflux disease without esophagitis; Z79.899 Other long term (current) drug therapy
CPT/HCPCS: 80053; 81001; 81025; 82009; 82962; 85007; 85025; 87086; 99281; J2405

== ENCOUNTER 2020-10-01 21:39 | Inpatient (IN) | payer BC, SELFPAY ==
[2020-10-01 21:41] VITALS: BP 128/69; PULSE 133; RESP 22; TEMP 37; O2SAT 98; BMI 32.3
[2020-10-01 22:26] LABS: Microscopic, Urine URINE MICROSCOPIC (MICROSCOPIC)
[2020-10-01 22:30] LABS: Appearance,Urine CLEAR (Clear); Blood, Urine 3+ (Negative); Color,Urine YELLOW (Yellow); Glucose,Urine (UA) 3+ (Negative); Ketones,Urine TRACE (Negative); Leukocyte Esterase,Urine Negative (Negative); Nitrate,Urine Negative (Negative); Protein,Urine 1+ (Negative); Urobilinogen,Urine 0.2 EU/dl (0.2)
[2020-10-01 22:31] LABS: Basophils # 0.2 K/mm3 (0-0.2); Basophils % 1.1 % (0.1-2.0); Eosinophils # 0.2 K/mm3 (0.0-0.4); Eosinophils % 0.9 % (0.1-12.0); Hematocrit 45.8 % (37.0-47.0); Hemoglobin 14.8 g/dL (12.2-16.2); Lymphocytes # 5.2 K/mm3 (0.7-4.5); Lymphocytes % 29.9 % (10-50); Mean Corpuscular HGB Conc 32.3 g/dL (31.8-35.4); Mean Corpuscular Hemoglobin 30.9 pg (27.0-31.2); Mean Corpuscular Volume 95.6 fl (81-99); Mean Platelet Volume 8.3 fl (7.4-10.4); Monocytes # 1.9 K/mm3 (0.1-1.0); Monocytes % 11.2 % (1.7-9.3); Neutrophils # 9.8 K/mm3 (1.8-7.8); Neutrophils % 56.9 % (37.0-80.0); Platelet Count 499 K/mm3 (142-424); Red Blood Count 4.79 M/mm3 (4.20-5.40); Red Cell Distribution Width 13.1 % (11.5-17.5); White Blood Count 17.2 K/mm3 (4.8-10.8)
[2020-10-01 22:33] LABS: Alanine Aminotransferase 20 U/L (12-78); Albumin Level 4.3 g/dl (3.5-5.0); Alkaline Phosphatase 198 U/L (38-126); Anion Gap 15.2 mEq/L (5-15); Aspartate Amino Transferase 24 U/L (14-36); Bilirubin,Total 0.6 mg/dl (0.2-1.3); Blood Urea Nitrogen 7 mg/dl (7-17); Calcium 9.1 mg/dl (8.4-10.2); Carbon Dioxide 25 mmol/L (22.0-30.0); Chloride 97 mmol/L (98-107); Creatinine Clearance Estimated 151 mL/min (50-200); Estimated Glomerular Filt Rate 92 ml/min (>60); GFR (African American) 112 ML/MIN (>60); Globulin 4.1 g/dL (1.3-3.2); Potassium 4.2 mmoL/L (3.5-5.1); Sodium 133 mmol/L (136-145); Total Protein,Serum 8.4 g/dl (6.3-8.2); Urine Pregnancy, HCG Qual. Negative (Negative)
[2020-10-01 22:36] LABS: MANUAL DIFFERENTIAL MANUAL DIFFERENTIAL (MANUAL DIFF)
[2020-10-01 22:38] LABS: C-Reactive Protein 211.5 mg/L (0-4)
[2020-10-01 22:40] LABS: Acetone, Serum (Rapid) None Detected (None Detect)
--- NOTE | 2020-10-01 22:43 | HMH.EDSKAF ---
ED Disposition Clinical Impression: SIRS (systemic inflammatory response syndrome), Obesity (BMI 30.0-34.9) Abscess of skin or subcutaneous tissue Qualifiers: Site of cutaneous abscess: buttock Qualified Code(s): L02.31 - Cutaneous abscess of buttock Type 2 diabetes mellitus Qualifiers: Diabetes mellitus manager r d insulin use: unspecified fdc insulin use status Diabetes mellitus complication status: with other specified complication Qualified Code(s): E11.69 - Type 2 diabetes mellitus with other specified complication Disposition: Admitted As Inpatient Condition on Discharge: Good Instructions: DI for Skin Abscess Referrals: Rosanne Gonzalez PA [Primary Care Provider] - - Critical Care Critical Care Time: No Attestation: On 10/01/20, the high probability of a clinically significant, sudden or life threatening deterioration of the following system(s) required my full and direct attention, intervention and personal management. The time I documented below is in addition to time spent performing reported procedures but includes the following listed in this critical care notation. Medical Decision Making - Medical Records Medical records reviewed: Yes: I reviewed the patient's medical records. - Solo Inquiry Pt receiving controlled substance: No Vital Signs: 10/01/20 21:41 Temperature 98.6 F Temperature Source Oral Pulse Rate [Right] 133 H Respiratory Rate 22 Blood Pressure [Right Arm] 128/69 Blood Pressure Mean [Right Arm] 88 02 Sat by Pulse Oximetry 98 Oxygen Delivery Method Room Air - Lab Data Lab results reviewed: Yes: I reviewed the patient's lab results. Lab Results 10/01/20 22:05: Urine Color Yellow, Urine Appearance Clear, Urine pH 6.0, Ur Specific [place] 1.010, Urine Protein 1+, Urine Glucose (UA) 3+, Urine Ketones Trace, Urine Blood 3+, Urine Nitrate Negative, Urine Bilirubin Negative, Urine Urobilinogen 0.2, Ur Leukocyte Esterase Negative, Urine RBC 20-50, Urine WBC 5-10, Ur Squamous Epith Cells 3-5, Urine Bacteria 1+ 10/01/20 22:05: WBC 17.2 H, RBC 4.79, Hgb 14.8, Hct 45.8, MCV 95.6, MCH 30.9, MCHC 32.3, RDW 13.1, Plt Count 499 H, MPV 8.3, Neut % (Auto) 56.9, Lymph % (Auto) 29.9, [place] % (Auto) 11.2 H, Eos % (Auto) 0.9, Baso % (Auto) 1.1, Neut # (Auto) 9.8 H, Lymph # (Auto) 5.2 H, [place] # (Auto) 1.9 H, Eos # (Auto) 0.2, Baso # (Auto) 0.2, Total Counted 100, Neutrophils % (Manual) 55, Lymphocytes % (Manual) 34, Atypical Lymphs % 2.0, Monocytes % (Manual) 9, Nucleated RBCs 1, Platelet Estimate Slight increase, RBC Morphology Normal 10/01/20 22:05: Urine HCG, Qual Negative 10/01/20 22:05: Sodium 133 L, Potassium 4.2, Chloride 97 L, Carbon Dioxide 25, Anion Gap 15.2 H, BUN 7, Creatinine 0.70, Estimated Creat Clear 151, Estimated GFR 92, Est GFR ( Amer) 112, Glucose 433 H*, Calcium 9.1, Total Bilirubin 0.6, AST 24, ALT 20, Alkaline Phosphatase 198 H, C-Reactive Protein 211.5 H, Total Protein 8.4 H, Albumin 4.3, Globulin 4.1 H, Albumin/Globulin Ratio 1.0 L, Procalcitonin 0.101, Acetone Level None detected 10/01/20 22:30: Lactate 1.4 Result diagrams: 10/01/20 22:05 10/01/20 22:05 Orders (Tests/Meds): ED MEDICATIONS Generic Name Dose Route Start Last Admin Trade Name Freq PRN Reason Stop Dose Admin Sodium Chloride 1,000 mls @ 999 mls/hr 10/01/20 22:45 10/01/20 22:42 Sod Chlor 0.9% 1000ml Bag IV 10/01/20 23:45 999 mls/hr .Q1H1M AURELIA Administration Discontinued Medications Generic Name Dose Route Start Last Admin Trade Name Freq PRN Reason Stop Dose Admin Ketorolac Tromethamine 30 mg 10/01/20 22:35 10/01/20 22:42 Ketorolac 30mg/Ml Vial IV 10/01/20 22:36 30 mg ONCE ONE Administration ORDERS Category Date Time Status Complete Blood Count Auto Diff Stat Lab 10/01/20 22:05 Results Erythrocyte Sedimentation Rate Stat Lab 10/01/20 22:05 Results Blood Culture Stat Micro 10/01/20 22:30 Received - Physician Consults Physician Consulted: preethi Taylor
[2020-10-01 22:46] LABS: Bilirubin,Urine Negative (Negative)
[2020-10-01 22:47] LABS: RBC,Urine 20-50 #/hpf (0-3)
[2020-10-01 22:48] LABS: Bacteria,Urine 1+ /lpf
[2020-10-01 22:49] LABS: Lactic Acid 1.4 mmol/L (0.7-2.1)
[2020-10-01 22:51] LABS: Glucose 433 mg/dl (74-100)
--- NOTE | 2020-10-01 22:51 | PC.NURSE ---
critical glucose report to md camila sommer primary nurse abebe dyson
[2020-10-01 22:52] LABS: Procalcitonin 0.101 ng/mL (0.0-2.0)
[2020-10-01 22:54] LABS: Lymphocytes % 34 % (10-50); Monocytes % 9 % (2-9); Neutrophils % 55 % (42-76); Nucleated Red Blood Cells 1; Platelet Estimate Slight Increase; RBC Morphology Normal; Total Cells Counted 100
--- NOTE | 2020-10-01 23:02 | PC.NURSE ---
call placed to nightwatch for dosage of vancomycin.
[2020-10-01 23:11] LABS: Adenovirus,PCR Not Detected (NotDetected); Bordetella Pertussis Not Detected (NotDetected); Chlamydophila Pneumoniae, PCR Not Detected (NotDetected); Coronavirus 19, PCR Not Detected (NotDetected); Coronavirus 229E Not Detected (NotDetected); Coronavirus NL63 Not Detected (NotDetected); Coronavirus OC43 Not Detected (NotDetected); Coronovirus HKU1,PCR Not Detected (NotDetected); Human Metapneumovirus Not Detected (NotDetected); Influenza A, PCR Not Detected (NotDetected); Influenza AH1, 2009 Not Detected (NotDetected); Influenza AH1, PCR Not Detected (NotDetected); Influenza AH3,PCR Not Detected (NotDetected); Influenza B, PCR Not Detected (NotDetected); Mycoplasma Pneumoniae, PCR Not Detected (NotDetected); Parainfluenza 1, PCR Not Detected (NotDetected); Parainfluenza 2, PCR Not Detected (NotDetected); Parainfluenza 3, PCR Not Detected (NotDetected); Parainfluenza 4, PCR Not Detected (NotDetected); Respiratory Syncytial Virus Not Detected (NotDetected); Rhinovirus/Enterovirus Not Detected (NotDetected)
[2020-10-01 23:12] LABS: Erythrocyte Sedimentation Rate 17 mm/hr (0-20)
[2020-10-02] VITALS (23 sets, daily range): BP systolic 107–154; BP diastolic 61–95; PULSE 81–130; RESP 15–20; TEMP 36.5–43; O2SAT 89–98; BMI 32.6
--- NOTE | 2020-10-02 00:28 | PC.NURSE ---
PT ARRIVED TO FLOOR VIA W/C FROM ED W/STAFF AT 0028
--- NOTE | 2020-10-02 03:37 | PC.NURSE ---
pt has refused consent for pictures of her abscess due to their location
--- NOTE | 2020-10-02 03:38 | PC.NURSE ---
shift summary pt is alert and oriented X4.lung sounds are clear with sats 90% or above on room air. pt has been tachycardic at 127 during this shift. pt has complained of pain once which was relieved with meds.pt is ambulatory to bathroom unassisted. pt denies any nausea, vomiting, or diarrhea.
[2020-10-02 06:45] LABS: Basophils # 0.2 K/mm3 (0-0.2); Basophils % 1.1 % (0.1-2.0); Eosinophils # 0.2 K/mm3 (0.0-0.4); Eosinophils % 1.5 % (0.1-12.0); Hematocrit 40.4 % (37.0-47.0); Lymphocytes % 32.5 % (10-50); Mean Corpuscular Hemoglobin 31.4 pg (27.0-31.2); Mean Corpuscular Volume 95.1 fl (81-99); Mean Platelet Volume 9.8 fl (7.4-10.4); Monocytes % 12.8 % (1.7-9.3); Neutrophils % 52.1 % (37.0-80.0); Platelet Count 480 K/mm3 (142-424); Red Blood Count 4.25 M/mm3 (4.20-5.40); Red Cell Distribution Width 13.1 % (11.5-17.5); White Blood Count 15.4 K/mm3 (4.8-10.8)
[2020-10-02 07:02] LABS: Chloride 103 mmol/L (98-107)
[2020-10-02 07:03] LABS: Potassium 3.8 mmoL/L (3.5-5.1); Sodium 137 mmol/L (136-145)
[2020-10-02 07:06] LABS: Anion Gap 12.8 mEq/L (5-15); Blood Urea Nitrogen 10 mg/dl (7-17); Calcium 8.2 mg/dl (8.4-10.2); Carbon Dioxide 25 mmol/L (22.0-30.0); Creatinine Clearance Estimated 215 mL/min (50-200); Estimated Glomerular Filt Rate 136 ml/min (>60); GFR (African American) 165 ML/MIN (>60); Glucose 228 mg/dl (74-100)
--- NOTE | 2020-10-02 07:37 | PC.NURSE ---
Paged Dr Truong at [phone] for consult on this pt.
--- NOTE | 2020-10-02 08:21 | HMH.HP ---
*Admission Date: 10/01/20 *Chief complaint: Abscess of buttock *History of present illness: Olya is a 40-year-old white female with a history of insulin-dependent diabetes mellitus and anxiety disorder who has had recent problems with labial abscesses. She saw her investigator cash shortage on 09/29/20 with a right labial abscess which was drained in the office and she was started on oral Bactrim. The next day on 09/30/20, she had another abscess that developed on the left labium. She again saw her investigator cash shortage and this was also incised and drained in the office. Yesterday, on 10/01/20, she began having increasing pain in the perineal and buttock area and was running fever up to 102. She contacted her investigator cash shortage and reported her symptoms and was directed to the emergency room. She was evaluated in the ER last night and found to have an elevated white count of 17,000. On exam she appeared to have developed an abscess of the perineum and buttock area and is admitted at this time for surgical consultation. [facility] History Medical History: Reports:: Cancer (basal cell), Diabetes Mellitus Type 2, Gastroesophageal Reflux Disease(GERD), Hyperlipidemia, Migraine Denies:: Diabetes Mellitus Type 1, MRSA *Have you ever received a pneumonia vaccine?: Yes *Have you received a flu vaccine this season?: Yes Other Surgeries: Yes: Appendectomy, Cancer Surgery (excison of basal cell), Cholecystectomy, Splenectomy Amputation: No Fractures: No - *Social History Last grade of school completed: Some college Smoking Status: Never smoker Alcohol Intake: never Alcohol Intake Frequency:: a few times a month Substance Use Type: denies use *Occupational Status:: employed Housing: house Household Members: spouse, children *Travel in the last 8 weeks: None Family Hx:: Diabetes Review of Systems - Constitutional Reports fever(s), Denies body ache(s), Denies chills - Eyes Denies blurry vision, Denies double vision - ENT Denies abnormal hearing, Denies ear pain, Denies nasal congestion, Denies sinus pressure - *Cardiovascular Denies chest pain, Denies shortness of breath - *Respiratory Denies chest congestion, Denies cough - *Gastrointestinal Denies abdominal pain, Denies change in bowel habits, Denies nausea, Denies vomiting - *Genitourinary Reports other (See HPI) - *Musculoskeletal Denies joint pain, Denies muscle cramps - Integumentary/Breasts Denies change in skin color, Denies unusual bruising - *Neurologic Denies headache(s), Denies seizure-like activity - Psychiatric Reports anxiety, Reports panic attacks - Endocrine Denies cold intolerance, Denies heat intolerance - Hematologic/Lymphatic Denies easy bleeding, Denies easy bruising - Allergic/Immunologic Denies itchy eyes, Denies wheezing Meds Home Medications Medication Instructions Recorded Confirmed Type Atorvastatin Calcium [Lipitor 40mg 40 mg PO HS 01/22/20 10/01/20 History Tab] Clomipramine HCl [Anafranil] 50 mg PO BID 01/22/20 10/01/20 History Dapagliflozin/Metformin HCl 1 each PO DAILY 01/22/20 10/01/20 History [Xigduo Xr 5 mg-1,000 mg Tablet] Rizatriptan Benzoate [Maxalt] 10 mg PO DAILYP PRN 01/22/20 10/01/20 History Temazepam [Restoril] 15 mg PO HS 01/22/20 10/01/20 History Triamterene/Hydrochlorothiazid 1 each PO DAILYP PRN 01/22/20 10/01/20 History [Triamterene-Hctz 37.5-25 mg Tb] clonazePAM [Clonazepam] 0.5 mg PO BID 01/22/20 10/01/20 History Fluconazole [Diflucan 150mg tab] 150 mg PO WEEKLY 10/01/20 10/01/20 History Insulin Degludec [Tresiba 48 units SQ DAILY 10/01/20 10/01/20 History Flextouch U-100] Oxycodone HCl/Acetaminophen 5 mg PO Q6HP PRN 10/01/20 10/01/20 History [Oxycodone-Acetaminophen 5-325] hydrOXYzine HCL [Hydroxyzine HCl] 50 mg PO HS 10/01/20 10/01/20 History Allergies Allergy/AdvReac Type Severity Reaction Status Date / Time No Known Allergies Allergy Verified 12/18/18 18:23 Exam Vital signs and Labs for Last 24 Hours
[2020-10-02 08:38] LABS: MANUAL DIFFERENTIAL MANUAL DIFFERENTIAL (MANUAL DIFF)
[2020-10-02 08:39] LABS: Hemoglobin 13.3 g/dL (12.2-16.2)
--- NOTE | 2020-10-02 08:44 | HMH.PHACONS ---
- Pharmacy Consult Date: 10/02/20 Time: 08:44 Referring provider: DR. SARABIA Reason for Consult:: VANCOMYCIN DOSING Allergies and ADEs:: Allergies Allergy/AdvReac Type Severity Reaction Status Date / Time No Known Allergies Allergy Verified 12/18/18 18:23 Home Medications:: Home Medications Medication Instructions Recorded Confirmed Type Atorvastatin Calcium [Lipitor 40mg 40 mg PO HS 01/22/20 10/01/20 History Tab] Clomipramine HCl [Anafranil] 50 mg PO BID 01/22/20 10/01/20 History Dapagliflozin/Metformin HCl 1 each PO DAILY 01/22/20 10/01/20 History [Xigduo Xr 5 mg-1,000 mg Tablet] Rizatriptan Benzoate [Maxalt] 10 mg PO DAILYP PRN 01/22/20 10/01/20 History Temazepam [Restoril] 15 mg PO HS 01/22/20 10/01/20 History Triamterene/Hydrochlorothiazid 1 each PO DAILYP PRN 01/22/20 10/01/20 History [Triamterene-Hctz 37.5-25 mg Tb] clonazePAM [Clonazepam] 0.5 mg PO BID 01/22/20 10/01/20 History Fluconazole [Diflucan 150mg tab] 150 mg PO WEEKLY 10/01/20 10/01/20 History Insulin Degludec [Tresiba 48 units SQ DAILY 10/01/20 10/01/20 History Flextouch U-100] Oxycodone HCl/Acetaminophen 5 mg PO Q6HP PRN 10/01/20 10/01/20 History [Oxycodone-Acetaminophen 5-325] hydrOXYzine HCL [Hydroxyzine HCl] 50 mg PO HS 10/01/20 10/01/20 History Height: 1.68 m Weight: 92.079 kg Laboratory Results:: Laboratory Results - last 24 hr 10/01/20 22:05: Urine Color Yellow, Urine Appearance Clear, Urine pH 6.0, Ur Specific [place] 1.010, Urine Protein 1+, Urine Glucose (UA) 3+, Urine Ketones Trace, Urine Blood 3+, Urine Nitrate Negative, Urine Bilirubin Negative, Urine Urobilinogen 0.2, Ur Leukocyte Esterase Negative, Urine RBC 20-50, Urine WBC 5-10, Ur Squamous Epith Cells 3-5, Urine Bacteria 1+ 10/01/20 22:05: WBC 17.2 H, RBC 4.79, Hgb 14.8, Hct 45.8, MCV 95.6, MCH 30.9, MCHC 32.3, RDW 13.1, Plt Count 499 H, MPV 8.3, Neut % (Auto) 56.9, Lymph % (Auto) 29.9, [place] % (Auto) 11.2 H, Eos % (Auto) 0.9, Baso % (Auto) 1.1, Neut # (Auto) 9.8 H, Lymph # (Auto) 5.2 H, [place] # (Auto) 1.9 H, Eos # (Auto) 0.2, Baso # (Auto) 0.2, Total Counted 100, Neutrophils % (Manual) 55, Lymphocytes % (Manual) 34, Atypical Lymphs % 2.0, Monocytes % (Manual) 9, Nucleated RBCs 1, Platelet Estimate Slight increase, RBC Morphology Normal, ESR 17 10/01/20 22:05: Urine HCG, Qual Negative 10/01/20 22:05: Sodium 133 L, Potassium 4.2, Chloride 97 L, Carbon Dioxide 25, Anion Gap 15.2 H, BUN 7, Creatinine 0.70, Estimated Creat Clear 151, Estimated GFR 92, Est GFR ( Amer) 112, Glucose 433 H*, Calcium 9.1, Total Bilirubin 0.6, AST 24, ALT 20, Alkaline Phosphatase 198 H, C-Reactive Protein 211.5 H, Total Protein 8.4 H, Albumin 4.3, Globulin 4.1 H, Albumin/Globulin Ratio 1.0 L, Procalcitonin 0.101, Acetone Level None detected 10/01/20 22:30: Lactate 1.4 10/01/20 23:07: Chlamy pneumoniae PCR Not detected, Adenovirus (PCR) Not detected, B. pertussis DNA (PCR) Not detected, Coronavirus OC43 (PCR) Not detected, Coronavirus HKU1 (PCR) Not detected, Coronavirus 229E (PCR) Not detected, SARS-CoV-2 (PCR) Not detected, Coronavirus NL63 (PCR) Not detected, Human Metapneumovir PCR Not detected, Influenza A (H1) PCR Not detected, Influ A (H1N1/09) PCR Not detected, Influenza A (H3) PCR Not detected, Influenza Type A (PCR) Not detected, Influenza Type B (PCR) Not detected, M. pneumoniae (PCR) Not detected, Parainfluenza 1 (PCR) Not detected, Parainfluenza 2 (PCR) Not detected, Parainfluenza 3 (PCR) Not detected, Parainfluenza 4 (PCR) Not detected, RSV (PCR) Not detected, Entero/Rhino (PCR) Not detected 10/02/20 06:24: WBC 15.4 H, RBC 4.25, Hgb 13.3 D, Hct 40.4, MCV 95.1, MCH 31.4 H, MCHC 33.0, RDW 13.1, Plt Count 480 H, MPV 9.8, Neut % (Auto) 52.1, Lymph % (Auto) 32.5, [place] % (Auto) 12.8 H, Eos % (Auto) 1.5, Baso % (Auto) 1.1, Neut # (Auto) 8.0 H, Lymph # (Auto) 5.0 H, [place] # (Auto) 2.0 H, Eos # (Auto) 0.2, Baso # (Auto) 0.2 10/02/20 06:24: Sodium 137, Potassium 3.8, Chloride 103, Carbon Dioxide
--- NOTE | 2020-10-02 08:49 | P.CONPHA_ITS ---
[facility] Pharm[facility] VTE Monitoring - Patient Demographics Admission date: 10/01/20 Report Date: 10/02/20 Time: 08:49 Allergies/Adverse Reactions: Patient Allergies No Known Allergies Allergy (Verified 12/18/18 18:23) Height: 1.68 m Weight: 92.079 kg Patient Problems: Current Active Problems Type 2 diabetes mellitus (Chronic) Obesity (BMI 30.0-34.9) (Acute) Abscess of skin or subcutaneous tissue (Acute) SIRS (systemic inflammatory response syndrome) (Acute) - VTE Risk Labs: VTE Related Lab Results Hgb 13.3 g/dL (12.2-16.2) D 10/02/20 06:24 Hct 40.4 % (37.0-47.0) 10/02/20 06:24 Plt Count 480 K/mm3 (142-424) H 10/02/20 06:24 BUN 10 mg/dl (7-17) D 10/02/20 06:24 Creatinine 0.50 mg/dl (0.52-1.04) L D 10/02/20 06:24 Estimated Creat Clear 215 mL/min (50-200) 10/02/20 06:24 - Prophylaxis VTE Prophylaxis Ordered?: Yes Types of VTE Prophylaxis: TEDS Knee High Location of Applied Device: Bilateral Lower Extremeties
[2020-10-02 09:01] LABS: Lymphocytes % 45 % (10-50); Monocytes % 10 % (2-9); Neutrophils % 45 % (42-76); Platelet Estimate Moderate Increase; RBC Morphology Normal; Total Cells Counted 100
--- NOTE | 2020-10-02 09:08 | HMH.PHAINT ---
HOME MEDICATIONS RECONCILED FROM RX FILL HISTORY.
--- NOTE | 2020-10-02 09:16 | HMH.GSCON ---
*Admission Date: 10/01/20 *Reason for consult:: GLuteal abscess *History of present illness: Recalled from Dr. Almodovar's history and physical: Olya is a 40-year-old white female with a history of insulin-dependent diabetes mellitus and anxiety disorder who has had recent problems with labial abscesses. She saw her fishing tackle repairer on 09/29/20 with a right labial abscess which was drained in the office and she was started on oral Bactrim. The next day on 09/30/20, she had another abscess that developed on the left labium. She again saw her fishing tackle repairer and this was also incised and drained in the office. Yesterday, on 10/01/20, she began having increasing pain in the perineal and buttock area and was running fever up to 102. She contacted her fishing tackle repairer and reported her symptoms and was directed to the emergency room. She was evaluated in the ER last night and found to have an elevated white count of 17,000. On exam she appeared to have developed an abscess of the perineum and buttock area and is admitted at this time for surgical consultation. Review of Systems - Review of Systems Review of systems:: pertinent systems reviewed and negative unless documented below - *Neurologic Denies abnormal hearing, Denies headache(s), Denies seizure-like activity [facility] History I have reviewed the patient's past medical history: Yes Medical History: Reports:: Cancer (basal cell), Diabetes Mellitus Type 2, Gastroesophageal Reflux Disease(GERD), Hyperlipidemia, Migraine Denies:: Diabetes Mellitus Type 1, MRSA *Have you ever received a pneumonia vaccine?: Yes *Have you received a flu vaccine this season?: Yes Other Surgeries: Yes: Appendectomy, Cancer Surgery (excison of basal cell), Cholecystectomy, Splenectomy, Other Amputation: No Fractures: No - *Social History Last grade of school completed: Some college Smoking Status: Never smoker Alcohol Intake: never Alcohol Intake Frequency:: a few times a month Substance Use Type: denies use *Occupational Status:: employed Housing: house Household Members: spouse, children *Travel in the last 8 weeks: None Family Hx:: Diabetes Meds Home Medications Medication Instructions Recorded Confirmed Type Atorvastatin Calcium [Lipitor 40mg 40 mg PO HS 01/22/20 10/01/20 History Tab] Clomipramine HCl [Anafranil] 75 mg PO BID 01/22/20 10/02/20 History Dapagliflozin/Metformin HCl 1 each PO DAILY 01/22/20 10/01/20 History [Xigduo Xr 5 mg-1,000 mg Tablet] Rizatriptan Benzoate [Maxalt] 10 mg PO DAILYP PRN 01/22/20 10/01/20 History Temazepam [Restoril] 15 mg PO HS 01/22/20 10/01/20 History Triamterene/Hydrochlorothiazid 1 each PO DAILYP PRN 01/22/20 10/01/20 History [Triamterene-Hctz 37.5-25 mg Tb] clonazePAM [Clonazepam] 0.5 mg PO BID 01/22/20 10/01/20 History Fluconazole [Diflucan 150mg tab] 150 mg PO WESA 10/01/20 10/02/20 History Insulin Degludec [Tresiba 48 units SQ DAILY 10/01/20 10/01/20 History Flextouch U-100] Oxycodone HCl/Acetaminophen 5 mg PO Q4HP PRN 10/01/20 10/02/20 History [Oxycodone-Acetaminophen 5-325] hydrOXYzine HCL [Hydroxyzine HCl] 50 mg PO HS 10/01/20 10/01/20 History Clobetasol Propionate 1 applicatio TP DAILY 10/02/20 10/02/20 History Clotrimazole/Betamethasone Dip 1 applicatio TP BID 10/02/20 10/02/20 History [Lotrisone cream 15gm tube] Sulfamethoxazole/Trimethoprim 1 each PO BID 10/02/20 10/02/20 History [Bactrim DS tablet] bisoproloL fumarate [Bisoprolol 10 mg PO DAILY 10/02/20 10/02/20 History 10mg Tablet] Allergies Allergy/AdvReac Type Severity Reaction Status Date / Time No Known Allergies Allergy Verified 12/18/18 18:23 Exam Vital signs and Labs for Last 24 Hours: Temp Pulse Resp BP Pulse Ox 98.1 F 106 H 18 107/70 L 89 L 10/02/20 08:00 10/02/20 08:00 10/02/20 08:00 10/02/20 08:00 10/02/20 08:00 Laboratory Results - last 24 hr 10/01/20 22:05: Urine Color Yellow, Urine Appearance Clear, Urine pH 6.0, Ur Specific [place] 1.
--- NOTE | 2020-10-02 10:29 | PC.NURSE ---
Pt down for surgery at approx 1000.
--- NOTE | 2020-10-02 10:37 | HMH.ANESCL ---
[facility] Anesthesia Checklist - Patient Identification Patient Identification: Arm Band - Structural Data Admitted From: Inpatient Planned Operative Procedure/s: I&D Perineal Abscess Consent for Planned Operative Procedure(s) Verified: Yes Verified Documents: Surgical Consent, History and Physical - NPO Status Verified Time NPO: 00:00 - Additional verifications Anesthesia Reactions: No - Airway Assessment C-Spine Mobility Assessed: Yes (mp2) TMJ Mobility Assessed: Yes Dentition: Good Dentition - Neurological Assessment Level of Consciousness: Awake, Alert - Anesthesia Plan Anesthesia Risk discussed: Yes Anesthesia Plan: Verified ASA Class: III Anesthesia Type: General [facility] History I have reviewed the patient's past medical history: Yes Medical History: Reports:: Cancer (basal cell), Diabetes Mellitus Type 2, Gastroesophageal Reflux Disease(GERD), Hyperlipidemia, Migraine Denies:: Diabetes Mellitus Type 1, MRSA *Have you ever received a pneumonia vaccine?: Yes *Have you received a flu vaccine this season?: Yes Anesthesia experience/problems:: nac Other Surgeries: Yes: Appendectomy, Cancer Surgery (excison of basal cell), Cholecystectomy, Splenectomy, Other Amputation: No Fractures: No - *Social History Last grade of school completed: Some college Smoking Status: Never smoker Alcohol Intake: never Alcohol Intake Frequency:: a few times a month Substance Use Type: denies use *Occupational Status:: employed Housing: house Household Members: spouse, children *Travel in the last 8 weeks: None Family Hx:: Diabetes
--- NOTE | 2020-10-02 10:46 | P.OP_ITS ---
Date of procedure: 10/02/20 Pre-op Diagnosis:: Perineal/perirectal abscess Post-op Diagnosis:: Same Procedure performed:: Incision and drainage of left perirectal abscess Surgeon:: Castro Truong MD LIBRARIAN:: Jason Oseguera Anesthesia: LMA Estimated blood loss (mL): 15 Clinical Note:: Patient is a 40-year-old diabetic female. She has had some issues recently with perineal infection. She saw her diesel retrofit designer on 09/29/20 with a abscess which was drained in the office and she was started on oral Bactrim. The next day on 09/30/20, she had another abscess that developed and was drained. Yesterday, on 10/01/20, she began having increasing pain in the perineal and buttock area and was running fever up to 102. She contacted her diesel retrofit designer and reported her symptoms and was directed to the emergency room. She was evaluated in the ER last night and found to have an elevated white count of 17,000. On exam she appeared to have developed an abscess of the perineum and buttock area and is admitted at this time for surgical consultation. Patient was seen and examined as a surgical consultation. She had 2 limited incision and drainage sites in the perianal location. In the left perianal/perirectal region she had significant induration with erythema likely consistent with perirectal abscess. Arrangements were made for urgent incision and drainage. Operative findings:: Consistent with perirectal abscess Operative note:: Consent was obtained and patient was taken to the operating room. She was positioned supine position. General anesthesia was induced via LMA. Area was prepped and draped in the standard surgical fashion. The left side showed significant erythema and induration. Limited incision and drainage site was probed on the left. There was some purulent material. Wound was opened with electrocautery. Wound was probed and any loculations were freed. There was minimal residual purulent material. However cultures were sent including both a aerobic and anaerobic. The cavity was thoroughly evacuated. Hemostasis was achieved with electrocautery. The wound was thoroughly irrigated. Local anesthetic was infiltrated. The wound was packed with a saline moistened Kerlix gauze. Clean dry sterile dressing was applied. There was some residual induration superior laterally. However there did not appear to be any microabscess or undrained pus or necrosis. Of note, since this seems to be likely perirectal abscess plan will be for antibiotic coverage with Zosyn and vancomycin pending cultures. Condition: stable Disposition: PACU Specimens:: Cultures Complications:: None immediately apparent
--- NOTE | 2020-10-02 10:53 | HMH.ANESI ---
[facility] Anesthesia Record Part I Intake, IV Amount: 500 Estimated blood loss (mL): 10 Urine output (mL): 0 Blood Pressure: 136/85 SaO2: 92 Pulse Rate: 115 Respiratory Rate: 16 Temperature: 97.9 F Patient is:: Drowsy, Stable Stable to PACU at:: 10:45
[2020-10-02 11:09] LABS: POC Glucose,Bedside 198 (70-110)
--- NOTE | 2020-10-02 11:10 | PC.NURSE ---
1107-checked fsbs with results of 198, notified Kelvin,COTTON CONVERTER at this time, no further orders given
--- NOTE | 2020-10-02 11:16 | PC.NURSE ---
1112-called report to KARINA Horta 1116-pt transported to med surg via hospital bed w/jania rails up per karina arango and [facility] and left in care of karina horta with bed locked in lowest position, vss, pt stable
[2020-10-02 11:22] LABS: POC Glucose,Bedside 243 (70-110)
[2020-10-02 16:36] LABS: POC Glucose,Bedside 372 (70-110)
--- NOTE | 2020-10-02 19:48 | PC.NURSE ---
Have faxed order for zosyn 4.5 gm q 6 hrs to pharmacy x 3 times. Have faxed to routinue and stat fax number. Have also paged pharmacy in RE to zosyn med question.
--- NOTE | 2020-10-02 20:03 | PC.NURSE ---
Bryan oliva 4.5 gm @ 1999, have spoke with Vivi again in pharmacy and there is still problem with faxes. Verified med with Dudley Beard RN. Vivi also provided reconstruction instructions.
[2020-10-02 20:55] LABS: POC Glucose,Bedside 309 (70-110)
[2020-10-03] VITALS: BP 111/66; PULSE 119; RESP 17; TEMP 36.7; O2SAT 97
--- NOTE | 2020-10-03 03:30 | PC.NURSE ---
A&OX4. TOLERATING RA WELL. PT IS UP INDEPENDENTLY IN ROOM. PT TOLERATES WALKING TO BATHROOM, AND HAS SHOWERED THIS SHIFT. PT HAS C/O PERIRECTAL PAIN X2, TX WITH PRN MORPHINE. ON REASSESSMENT PT RESTING IN BED. DX CHANGE COMPLETED THIS SHIFT. PT HAS PERIRECTAL ABSCESS TO R SIDE. ABSCESS CLEANED WITH SALINE, AND FRESH SALINE SOAKED KERLEX PLACED. DRY GAUZE AND TEGADERM APPLIED TO TOP. PT TOLERATED DX CHANGE WELL. PT RESTING IN BED MAJORITY OF SHIFT, VSS WILL CONTINUE TO MONITOR.
[2020-10-03 04:27] VITALS: BP 135/65; PULSE 91; RESP 17; TEMP 36.5; O2SAT 95
[2020-10-03 08:00] VITALS: BP 122/82; PULSE 114; RESP 20; TEMP 37.1; O2SAT 98
--- NOTE | 2020-10-03 08:11 | P.PN_ITS ---
Subjective Narrative: Patient underwent dressing change last night. Having some pain at this point. Progress Note: A&P (1) Anxiety disorder Status: Acute (2) Abscess of skin or subcutaneous tissue Status: Acute Assessment and plan: Currently on vancomycin and Zosyn. Continue wound care. Cultures pending. Continue inpatient management at this time for IV antibiotics, pain control, and wound care. Possible discharge home soon with outpatient dressing changes and oral antibiotics. (3) Type 2 diabetes mellitus Status: Chronic (4) Hyperglycemia Status: Acute Exam Vital signs and Labs for Last 24 Hours: Temp Pulse Resp BP Pulse Ox 97.7 F 91 H 17 135/65 95 10/03/20 04:27 10/03/20 04:27 10/03/20 04:27 10/03/20 04:27 10/03/20 04:27 Laboratory Results - last 24 hr 10/02/20 05:13: POC Glucose 243 H 10/02/20 06:24: WBC 15.4 H, RBC 4.25, Hgb 13.3 D, Hct 40.4, MCV 95.1, MCH 31.4 H, MCHC 33.0, RDW 13.1, Plt Count 480 H, MPV 9.8, Neut % (Auto) 52.1, Lymph % (Auto) 32.5, [place] % (Auto) 12.8 H, Eos % (Auto) 1.5, Baso % (Auto) 1.1, Neut # (Auto) 8.0 H, Lymph # (Auto) 5.0 H, [place] # (Auto) 2.0 H, Eos # (Auto) 0.2, Baso # (Auto) 0.2, Total Counted 100, Neutrophils % (Manual) 45, Lymphocytes % (Manual) 45, Monocytes % (Manual) 10 H, Platelet Estimate Moderate increase, RBC Morphology Normal 10/02/20 11:01: POC Glucose 198 H 10/02/20 16:17: POC Glucose 372 H* 10/02/20 20:40: POC Glucose 309 H* I & O for Last 24 hours: Intake & Output 09/30/20 10/01/20 10/02/20 10/03/20 11:59 11:59 11:59 11:59 Intake Total 1675 / 1675 1361 / 1361 Balance 1675 / 1675 1361 / 1361 Weight 203 lb Microbiology Reports for the Last 24 Hours: Microbiology 10/02/20 10:28 Rectum Gram Stain - Final - *Routine Skin Exam Comments: Decreasing induration and erythema.
--- NOTE | 2020-10-03 08:32 | P.PN_ITS ---
[facility] Anesthesia Record Part II Discharge Time: 11:15 Destination: Medical Surgical Department PACU nurse assessment reviewed?: Yes Patient Condition:: Good Anesthesia Complications:: None Swallowing reflex intact?: Yes Cyanosis?: No Blood Pressure: 119/71 Pulse Rate: 102 Temperature: 97.8 F Mental Status: Alert & Oriented Pain level:: 0 Nausea and/or vomitting:: None Intake, IV Amount: 0
[2020-10-03 08:33] VITALS: BP 119/71; PULSE 102; TEMP 36.6
--- NOTE | 2020-10-03 09:03 | P.PN_ITS ---
Internal Medicine - PN: Subj *Date: 10/03/20 *Time: 09:03 Interval history: No unusual complaints. Pain is controlled with current regimen. Appetite is good. Exam Vital signs and Labs for Last 24 Hours: Temp Pulse Resp BP Pulse Ox 97.8 F 102 H 20 119/71 98 10/03/20 08:33 10/03/20 08:33 10/03/20 08:00 10/03/20 08:33 10/03/20 08:00 Laboratory Results - last 24 hr 10/02/20 05:13: POC Glucose 243 H 10/02/20 11:01: POC Glucose 198 H 10/02/20 16:17: POC Glucose 372 H* 10/02/20 20:40: POC Glucose 309 H* I & O for Last 24 hours: Intake & Output 09/30/20 10/01/20 10/02/20 10/03/20 11:59 11:59 11:59 11:59 Intake Total 1675 / 1675 1361 / 1361 Balance 1675 / 1675 1361 / 1361 Weight 203 lb Microbiology Reports for the Last 24 Hours: Microbiology 10/02/20 10:28 Rectum Gram Stain - Final Narrative: She is sitting up in bed eating breakfast. Alert and oriented. Color is normal. Lungs are clear. Heart is regular. Assessment and Plan (1) Abscess of skin or subcutaneous tissue Status: Acute Qualifiers: Site of cutaneous abscess: buttock Qualified Code(s): L02.31 - Cutaneous abscess of buttock Category: Medical Code(s): L02.91 - Cutaneous abscess, unspecified (2) Anxiety disorder Status: Acute Category: Medical Code(s): F41.9 - Anxiety disorder, unspecified (3) Type 2 diabetes mellitus Status: Chronic Qualifiers: Diabetes mellitus concrete buildings assembler insulin use: unspecified concrete buildings assembler insulin use status Diabetes mellitus complication status: with other specified complicatio n Qualified Code(s): E11.69 - Type 2 diabetes mellitus with other specified complication Category: Medical Code(s): E11.9 - Type 2 diabetes mellitus without complications (4) Hyperglycemia Status: Acute Category: Medical Code(s): R73.9 - Hyperglycemia, unspecified - Assessment and plan all Dx Assessment and Plan for all problems:: Continue antibiotics pending surgical cultures. Daily dressing changes. Resume home medications. Activity as tolerated.
[2020-10-03 09:55] LABS: Vancomycin,Trough 8.7 ug/mL (5.0-10.0)
--- NOTE | 2020-10-03 10:05 | HMH.PHACONS ---
- Pharmacy Consult Date: 10/03/20 Time: 10:05 Referring provider: DR. SARABIA Reason for Consult:: VANCOMYCIN TROUGH LEVEL Allergies and ADEs:: Allergies Allergy/AdvReac Type Severity Reaction Status Date / Time No Known Allergies Allergy Verified 12/18/18 18:23 Home Medications:: Home Medications Medication Instructions Recorded Confirmed Type Atorvastatin Calcium [Lipitor 40mg 40 mg PO HS 01/22/20 10/01/20 History Tab] Clomipramine HCl [Anafranil] 75 mg PO BID 01/22/20 10/02/20 History Dapagliflozin/Metformin HCl 1 each PO DAILY 01/22/20 10/01/20 History [Xigduo Xr 5 mg-1,000 mg Tablet] Rizatriptan Benzoate [Maxalt] 10 mg PO DAILYP PRN 01/22/20 10/01/20 History Temazepam [Restoril] 15 mg PO HS 01/22/20 10/01/20 History Triamterene/Hydrochlorothiazid 1 each PO DAILYP PRN 01/22/20 10/01/20 History [Triamterene-Hctz 37.5-25 mg Tb] clonazePAM [Clonazepam] 0.5 mg PO BID 01/22/20 10/01/20 History Fluconazole [Diflucan 150mg tab] 150 mg PO WESA 10/01/20 10/02/20 History Insulin Degludec [Tresiba 48 units SQ DAILY 10/01/20 10/01/20 History Flextouch U-100] Oxycodone HCl/Acetaminophen 5 mg PO Q4HP PRN 10/01/20 10/02/20 History [Oxycodone-Acetaminophen 5-325] hydrOXYzine HCL [Hydroxyzine HCl] 50 mg PO HS 10/01/20 10/01/20 History Clobetasol Propionate 1 applicatio TP DAILY 10/02/20 10/02/20 History Clotrimazole/Betamethasone Dip 1 applicatio TP BID 10/02/20 10/02/20 History [Lotrisone cream 15gm tube] Sulfamethoxazole/Trimethoprim 1 each PO BID 10/02/20 10/02/20 History [Bactrim DS tablet] bisoproloL fumarate [Bisoprolol 10 mg PO DAILY 10/02/20 10/02/20 History 10mg Tablet] Height: 1.68 m Weight: 92.079 kg Laboratory Results:: Laboratory Results - last 24 hr 10/02/20 05:13: POC Glucose 243 H 10/02/20 11:01: POC Glucose 198 H 10/02/20 16:17: POC Glucose 372 H* 10/02/20 20:40: POC Glucose 309 H* 10/03/20 08:09: Vancomycin Trough 8.7 Medical History: Reports:: Cancer (basal cell), Diabetes Mellitus Type 2, Gastroesophageal Reflux Disease(GERD), Hyperlipidemia, Migraine Denies:: Diabetes Mellitus Type 1, MRSA Assessment and Plan (1) Abscess of skin or subcutaneous tissue Status: Acute Qualifiers: Site of cutaneous abscess: buttock Qualified Code(s): L02.31 - Cutaneous abscess of buttock Category: Medical Code(s): L02.91 - Cutaneous abscess, unspecified (2) Anxiety disorder Status: Acute Category: Medical Code(s): F41.9 - Anxiety disorder, unspecified (3) Type 2 diabetes mellitus Status: Chronic Qualifiers: Diabetes mellitus terminal worker insulin use: unspecified terminal worker insulin use status Diabetes mellitus complication status: with other specified complication Qualified Code(s): E11.69 - Type 2 diabetes mellitus with other specified complication Category: Medical Code(s): E11.9 - Type 2 diabetes mellitus without complications (4) Hyperglycemia Status: Acute Category: Medical Code(s): R73.9 - Hyperglycemia, unspecified - Assessment and plan all Dx Assessment and Plan for all problems:: BASED ON PATIENT FACTORS AND VANCOMYCIN TROUGH LEVEL, RECOMMEND INCREASING DOSE TO VANCOMYCIN 1750 MG IV Q8H. PHARMACY WILL CONTINUE TO MONITOR AND ADJUST APPROPRIATE.
[2020-10-03 12:33] LABS: POC Glucose,Bedside 241 (70-110)
[2020-10-03 16:00] VITALS: BP 116/69; PULSE 77; RESP 18; TEMP 36.7; O2SAT 94
--- NOTE | 2020-10-03 18:59 | PC.NURSE ---
No acute changes. Home meds started this shift. VSS.
[2020-10-03 20:00] VITALS: BP 117/62; PULSE 85; RESP 17; TEMP 36.5; O2SAT 95
[2020-10-03 21:14] LABS: POC Glucose,Bedside 207 (70-110)
[2020-10-03 21:14] LABS: POC Glucose,Bedside 284 (70-110)
[2020-10-04 00:48] LABS: POC Glucose,Bedside 345 (70-110)
--- NOTE | 2020-10-04 03:03 | PC.NURSE ---
A&OX4. PT TOLERATING RA WELL. PT UP INDEPENDENTLY IN ROOM. PT HAS SHOWERED THIS SHIFT. PT C/O MARIA GUADALUPE RECTAL PAIN T/O SHIFT, TX PER JUN. DRESSING CHANGE COMPLETED THIS SHIFT. RESTING IN BED MAJORITY OF SHIFT. NO OTHER C/O, VSS WILL CONTINUE TO MONITOR.
[2020-10-04 04:00] VITALS: BP 113/83; PULSE 74; RESP 18; TEMP 36.6; O2SAT 97
[2020-10-04 05:41] VITALS: BMI 32.6
[2020-10-04 07:01] LABS: POC Glucose,Bedside 217 (70-110)
[2020-10-04 08:00] VITALS: BP 125/69; PULSE 88; RESP 18; TEMP 36.6; O2SAT 95
[2020-10-04 08:31] LABS: Basophils # 0.3 K/mm3 (0-0.2); Basophils % 1.5 % (0.1-2.0); Eosinophils # 0.2 K/mm3 (0.0-0.4); Eosinophils % 1.3 % (0.1-12.0); Hemoglobin 12.1 g/dL (12.2-16.2); Lymphocytes # 4.5 K/mm3 (0.7-4.5); Lymphocytes % 25.9 % (10-50); Mean Corpuscular HGB Conc 37.9 g/dL (31.8-35.4); Mean Corpuscular Hemoglobin 30.2 pg (27.0-31.2); Mean Corpuscular Volume 79.6 fl (81-99); Mean Platelet Volume 18.4 fl (7.4-10.4); Monocytes % 11.7 % (1.7-9.3); Neutrophils # 10.3 K/mm3 (1.8-7.8); Neutrophils % 59.5 % (37.0-80.0); Platelet Count 273 K/mm3 (142-424); Red Blood Count 4.02 M/mm3 (4.20-5.40); White Blood Count 17.3 K/mm3 (4.8-10.8)
--- NOTE | 2020-10-04 08:35 | HMH.ACPN2 ---
<Mel Spaulding - Last Filed: 10/04/20 08:35> Internal Medicine - PN: Subj *Date: 10/04/20 *Time: 08:35 Interval history: Patient continues to have perineal pain requiring morphine every 4 hours. She states that she did sleep a little last night. She has been able to eat. She is voiding QS. Bowels have not moved. She ambulates to the bathroom without difficulty. Blood sugars have been elevated requiring insulin as per sliding scale Exam Vital signs and Labs for Last 24 Hours: Temp Pulse Resp BP Pulse Ox 97.9 F 74 18 113/83 97 10/04/20 04:00 10/04/20 04:00 10/04/20 04:00 10/04/20 04:00 10/04/20 04:00 Laboratory Results - last 24 hr 10/03/20 04:58: POC Glucose 207 H 10/03/20 08:09: Vancomycin Trough 8.7 10/03/20 11:52: POC Glucose 241 H 10/03/20 15:24: POC Glucose 345 H* 10/03/20 21:02: POC Glucose 284 H 10/04/20 05:59: POC Glucose 217 H I & O for Last 24 hours: Intake & Output 10/01/20 10/02/20 10/03/20 10/04/20 11:59 11:59 11:59 11:59 Intake Total 1675 / 1675 1361 / 1361 590 / 590 Balance 1675 / 1675 1361 / 1361 590 / 590 Weight 203 lb 202 lb 15.991 oz Microbiology Reports for the Last 24 Hours: Microbiology 10/01/20 22:30 Blood Blood Culture - Preliminary NO GROWTH AFTER 48 HOURS 10/01/20 22:30 Blood Blood Culture - Preliminary NO GROWTH AFTER 48 HOURS 10/02/20 10:28 Rectum - Final 10/02/20 10:28 Rectum Gram Stain - Final 10/02/20 10:28 Rectum Abscess Culture - Preliminary NO GROWTH AFTER 24 HOURS - Constitutional no acute distress - *Routine Respiratory Exam Present: CTA bilaterally (Anteriorly and posteriorly) - *Routine Cardiovascular Exam Present: RRR - *Routine Abdominal Exam Present: soft, normoactive bowel sounds. Absent: tenderness - *Routine Exam Comments: Perineal dressing is clean and dry. 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 Truong has seen the patient. He feels another day of stay is reasonable for pain management and dressing changes as well as IV antibiotics. <Clyde Almodovar - Last Filed: 10/04/20 22:15> Internal Medicine - PN: Subj *Date: 10/04/20 *Time: 22:14 Exam Vital signs and Labs for Last 24 Hours: Temp Pulse Resp BP Pulse Ox 98.4 F 82 17 121/71 98 10/04/20 19:40 10/04/20 19:40 10/04/20 20:49 10/04/20 19:40 10/04/20 19:40 Laboratory Results - last 24 hr 10/03/20 15:24: POC Glucose 345 H* 10/04/20 05:59: POC Glucose 217 H 10/04/20 07:44: WBC 17.3 H, RBC 4.02 L, Hgb 12.1 L, Hct 32.0 L, MCV 79.6 L, MCH 30.2, MCHC 37.9 H, RDW 15.8, Plt Count 273 D, MPV 18.4 H, Neut % (Auto) 59.5, Lymph % (Auto) 25.9, [place] % (Auto) 11.7 H, Eos % (Auto) 1.3, Baso % (Auto) 1.5, Neut # (Auto) 10.3 H, Lymph # (Auto) 4.5, [place] # (Auto) 2.0 H, Eos # (Auto) 0.2, Baso # (Auto) 0.3 H, Total Counted
--- NOTE | 2020-10-04 08:37 | HMH.GSPN ---
Subjective Narrative: Patient states that she is having a significant amount of pain. Somewhat anxious. Progress Note: A&P (1) Abscess of skin or subcutaneous tissue Status: Acute Assessment and plan: Currently on vancomycin and Zosyn. Gram stain reveals gram-positive cocci in pairs. Continue current care (2) Anxiety disorder Status: Acute (3) Type 2 diabetes mellitus Status: Chronic (4) Hyperglycemia Status: Acute Exam Vital signs and Labs for Last 24 Hours: Temp Pulse Resp BP Pulse Ox 97.9 F 74 18 113/83 97 10/04/20 04:00 10/04/20 04:00 10/04/20 04:00 10/04/20 04:00 10/04/20 04:00 Laboratory Results - last 24 hr 10/03/20 04:58: POC Glucose 207 H 10/03/20 08:09: Vancomycin Trough 8.7 10/03/20 11:52: POC Glucose 241 H 10/03/20 15:24: POC Glucose 345 H* 10/03/20 21:02: POC Glucose 284 H 10/04/20 05:59: POC Glucose 217 H I & O for Last 24 hours: Intake & Output 10/01/20 10/02/20 10/03/20 10/04/20 11:59 11:59 11:59 11:59 Intake Total 1675 / 1675 1361 / 1361 590 / 590 Balance 1675 / 1675 1361 / 1361 590 / 590 Weight 203 lb 202 lb 15.991 oz Microbiology Reports for the Last 24 Hours: Microbiology 10/01/20 22:30 Blood Blood Culture - Preliminary NO GROWTH AFTER 48 HOURS 10/01/20 22:30 Blood Blood Culture - Preliminary NO GROWTH AFTER 48 HOURS 10/02/20 10:28 Rectum - Final 10/02/20 10:28 Rectum Gram Stain - Final 10/02/20 10:28 Rectum Abscess Culture - Preliminary NO GROWTH AFTER 24 HOURS - *Routine Skin Exam Comments: Wound is clean. There is decreasing induration and erythema.
[2020-10-04 09:04] LABS: Red Cell Distribution Width 15.8 % (11.5-17.5)
[2020-10-04 09:05] LABS: MANUAL DIFFERENTIAL MANUAL DIFFERENTIAL (MANUAL DIFF)
[2020-10-04 09:53] LABS: Lymphocytes % 30 % (10-50); Monocytes % 3 % (2-9); Neutrophils % 67 % (42-76); Platelet Estimate Normal; RBC Morphology Normal; Total Cells Counted 100
[2020-10-04 11:39] VITALS: BMI 32.5
[2020-10-04 12:22] LABS: POC Glucose,Bedside 221 (70-110)
[2020-10-04 16:00] VITALS: BP 134/64; PULSE 85; RESP 19; TEMP 36.6; O2SAT 97
[2020-10-04 18:00] LABS: Anion Gap 9.6 mEq/L (5-15); Blood Urea Nitrogen 7 mg/dl (7-17); Calcium 8.9 mg/dl (8.4-10.2); Carbon Dioxide 28 mmol/L (22.0-30.0); Chloride 106 mmol/L (98-107); Creatinine Clearance Estimated 215 mL/min (50-200); Estimated Glomerular Filt Rate 136 ml/min (>60); GFR (African American) 165 ML/MIN (>60); Glucose 284 mg/dl (74-100); Potassium 4.6 mmoL/L (3.5-5.1); Sodium 139 mmol/L (136-145)
[2020-10-04 18:08] LABS: Vancomycin,Trough 16.9 ug/mL (5.0-10.0)
--- NOTE | 2020-10-04 19:24 | PC.NURSE ---
Pt has slept majority of this shift. Pt has requested pain meds x1 to premedicate prior to dressing change.When assessing the site, pt did not have packing placed to perigluteal area. Pt stated it must have fell out when I was in the bathroom . Pt educated to let nursing staff know if she believes that the packing fell out, to let staff know. Pt verbalized understanding.Pt tolerated dressing change well. Pt did lose PIV access this shift. After x4 attempts, warehouse hand asked for assistance. Josesito Palma states she will be up here shortly to attempt IV access
[2020-10-04 19:40] VITALS: BP 121/71; PULSE 82; RESP 16; TEMP 36.9; O2SAT 98
[2020-10-04 20:49] VITALS: RESP 17
[2020-10-04 21:55] LABS: POC Glucose,Bedside 236 (70-110)
[2020-10-05] VITALS (7 sets, daily range): BP systolic 98–115; BP diastolic 53–88; PULSE 66–70; RESP 16–18; TEMP 36.6; O2SAT 92–94; BMI 32.5
[2020-10-05 00:17] LABS: POC Glucose,Bedside 283 (70-110)
--- NOTE | 2020-10-05 00:45 | PC.NURSE ---
Called pharmacy at 0045 because No one from the first shift pharmacy or the night watch pharmacy had called a nurse to give instructions on the Vancomycin. As per lab at 1600 on 10/04/2020, Trough was 16.9. Was awaiting a call but never received one. Called and spoke with Candice, pharmacist on the night watch and she stated that she would retime the Vanc for 0100 and it would now be Q 12. Will continue to monitor for any acute changes.
--- NOTE | 2020-10-05 04:47 | PC.NURSE ---
Patient admitted for Left Buttock Abscess and is s/p Gluteal I/D. Patient oriented x four. Patient receiving Vancomycin and Zosyn, both administred this shift. Patient required numerous pain medication every 2 to 3 hours, Morphine 4 mg IV. Patient in no respiratory distress and shows no signs or symptoms of respiratory depression. Will continue to monitor for any acute changes.
--- NOTE | 2020-10-05 07:06 | P.PN_ITS ---
Subjective Narrative: Patient complains of some soreness. Progress Note: A&P (1) Abscess of skin or subcutaneous tissue Status: Acute (2) Anxiety disorder Status: Acute (3) Type 2 diabetes mellitus Status: Chronic (4) Hyperglycemia Status: Acute Assessment and Plan for All Diagnoses:: Anticipate discharge on oral antibiotics (likely Augmentin and Bactrim) with once daily wet-to-dry dressing changes. We will see in office in 1 week. Exam Vital signs and Labs for Last 24 Hours: Temp Pulse Resp BP Pulse Ox 97.9 F 66 16 98/53 L 92 L 10/05/20 03:19 10/05/20 03:19 10/05/20 05:04 10/05/20 03:19 10/05/20 03:19 Laboratory Results - last 24 hr 10/04/20 07:44: WBC 17.3 H, RBC 4.02 L, Hgb 12.1 L, Hct 32.0 L, MCV 79.6 L, MCH 30.2, MCHC 37.9 H, RDW 15.8, Plt Count 273 D, MPV 18.4 H, Neut % (Auto) 59.5, Lymph % (Auto) 25.9, [place] % (Auto) 11.7 H, Eos % (Auto) 1.3, Baso % (Auto) 1.5, Neut # (Auto) 10.3 H, Lymph # (Auto) 4.5, [place] # (Auto) 2.0 H, Eos # (Auto) 0.2, Baso # (Auto) 0.3 H, Total Counted 100, Neutrophils % (Manual) 67, Lymphocytes % (Manual) 30, Monocytes % (Manual) 3, Platelet Estimate Normal, RBC Morphology Normal 10/04/20 11:03: POC Glucose 221 H 10/04/20 17:40: Vancomycin Trough 16.9 H 10/04/20 17:40: Sodium 139, Potassium 4.6 D, Chloride 106, Carbon Dioxide 28, Anion Gap 9.6, BUN 7 D, Creatinine 0.50 L, Estimated Creat Clear 215, Estimated GFR 136, Est GFR ( Amer) 165, Glucose 284 H, Calcium 8.9 10/04/20 17:46: POC Glucose 283 H 10/04/20 20:37: POC Glucose 236 H I & O for Last 24 hours: Intake & Output 10/02/20 10/03/20 10/04/20 10/05/20 11:59 11:59 11:59 11:59 Intake Total 1675 / 1675 1361 / 1361 870 / 870 840 / 840 Output Total 0 / 0 Balance 1675 / 1675 1361 / 1361 870 / 870 840 / 840 Weight 203 lb 202 lb 13.204 oz 202 lb 13.204 oz Microbiology Reports for the Last 24 Hours: Microbiology 10/02/20 10:28 Rectum Gram Stain - Final 10/02/20 10:28 Rectum Abscess Culture - Preliminary NO GROWTH AFTER 48 HOURS - *Routine Skin Exam Comments: Wound is clean. It has closed and appreciably. Induration and erythema markedly improved.
--- NOTE | 2020-10-05 08:29 | HMH.ACPN2 ---
<Mel Spaulding - Last Filed: 10/05/20 08:29> Internal Medicine - PN: Subj *Date: 10/05/20 *Time: 08:29 Interval history: Patient awakened for assessment. She states her body remains sore. Per nursing documentation she is receiving regular morphine for the pain. She states she has been up to the bathroom. She is eating less because she is just not hungry. Bowels did move. She is voiding QS. She denies chest pain or shortness of breath. Patient has been seen by Dr. Truong this morning. He notes wound decreasing in size with less erythema. Cultures are negative. Exam Vital signs and Labs for Last 24 Hours: Temp Pulse Resp BP Pulse Ox 97.9 F 70 17 115/88 94 L 10/05/20 07:49 10/05/20 07:49 10/05/20 07:49 10/05/20 07:49 10/05/20 07:49 Laboratory Results - last 24 hr 10/04/20 07:44: WBC 17.3 H, RBC 4.02 L, Hgb 12.1 L, Hct 32.0 L, MCV 79.6 L, MCH 30.2, MCHC 37.9 H, RDW 15.8, Plt Count 273 D, MPV 18.4 H, Neut % (Auto) 59.5, Lymph % (Auto) 25.9, [place] % (Auto) 11.7 H, Eos % (Auto) 1.3, Baso % (Auto) 1.5, Neut # (Auto) 10.3 H, Lymph # (Auto) 4.5, [place] # (Auto) 2.0 H, Eos # (Auto) 0.2, Baso # (Auto) 0.3 H, Total Counted 100, Neutrophils % (Manual) 67, Lymphocytes % (Manual) 30, Monocytes % (Manual) 3, Platelet Estimate Normal, RBC Morphology Normal 10/04/20 11:03: POC Glucose 221 H 10/04/20 17:40: Vancomycin Trough 16.9 H 10/04/20 17:40: Sodium 139, Potassium 4.6 D, Chloride 106, Carbon Dioxide 28, Anion Gap 9.6, BUN 7 D, Creatinine 0.50 L, Estimated Creat Clear 215, Estimated GFR 136, Est GFR ( Amer) 165, Glucose 284 H, Calcium 8.9 10/04/20 17:46: POC Glucose 283 H 10/04/20 20:37: POC Glucose 236 H I & O for Last 24 hours: Intake & Output 10/02/20 10/03/20 10/04/20 10/05/20 11:59 11:59 11:59 11:59 Intake Total 1675 / 1675 1361 / 1361 2270 / 2270 960 / 960 Output Total 0 / 0 Balance 1675 / 1675 1361 / 1361 2270 / 2270 960 / 960 Weight 203 lb 202 lb 13.204 oz 202 lb 13.204 oz Microbiology Reports for the Last 24 Hours: Microbiology 10/02/20 10:28 Rectum Gram Stain - Final 10/02/20 10:28 Rectum Abscess Culture - Preliminary NO GROWTH AFTER 48 HOURS - Constitutional no acute distress Comments: Awakened for physical assessment. - *Routine Respiratory Exam Present: CTA bilaterally (Anteriorly and posteriorly) - *Routine Cardiovascular Exam Present: RRR - *Routine Abdominal Exam Present: soft, normoactive bowel sounds. Absent: tenderness - *Routine Extremities Exam Absent: edema, calf tenderness - *Routine Neurological Exam Present: alert, oriented X3 Assessment and Plan (1) Abscess of skin or subcutaneous tissue Status: Acute Qualifiers: Site of cutaneous abscess: buttock Qualified Code(s): L02.31 - Cutaneous abscess of buttock Category: Medical Code(s): L02.91 - Cutaneous abscess, unspecified (2) Anxiety disorder Status: Acute Category: Medical Code(s): F41.9 - Anxiety disorder, unspecified (3) Type 2 diabetes mellitus Status: Chronic Qualifiers: Diabetes mellitus mcc insulin use: unspecified mcc insulin use status Diabetes mellitus complication status: with other specified complication Qualified Code(s): E11.69 - Type 2 diabetes mellitus with other specified complication Category: Medical Code(s): E11.9 - Type 2 diabetes mellitus without complications (4) Hyperglycemia Status: Acute Category: Medical Code(s): R73.9 - Hyperglycemia, unspecified - Assessment and plan all Dx Assessment and Plan for all problems:: Continue with antibiotics. Possibly home today. <Clyde Almodovar - Last Filed: 10/16/20 14:29> Internal Medicine - PN: Subj *Date: 10/16/20 *Time: 14:29 Exam Vital signs and Labs for Last 24 Hours: Temp Pulse Resp BP Pulse Ox 97.9 F 70 17 115/88 94 L 10/05/20 07:49 10/05/20 07:49 10/05/20 07:49 10/05/20 07:49
--- NOTE | 2020-10-05 09:43 | SW/DCPLANNER ---
Addendum entered by Elise Diaz 10/05/20 11:24: This patient will discharge home today and return to [facility] daily for dressing changes. Original Note: I spoke with this patient regarding discharge plans. Patient will need daily dressing changes once she is medically stable for discharge. I explained options for dressing changes: home health and someone being taught the days they could not come to home vs outpatient at [facility]. Patient stated that she would prefer to return to [facility] for daily dressing changes. Patient stated that she would have transportation to [facility] daily. Patient could potentially discharge later today.
--- NOTE | 2020-10-05 10:17 | HMH.PHACONS ---
- Pharmacy Consult Date: 10/05/20 Time: 10:17 Referring provider: DR. SARABIA Reason for Consult:: VANCOMYCIN LEVEL Allergies and ADEs:: Allergies Allergy/AdvReac Type Severity Reaction Status Date / Time No Known Allergies Allergy Verified 12/18/18 18:23 Home Medications:: Home Medications Medication Instructions Recorded Confirmed Type Atorvastatin Calcium [Lipitor 40mg 40 mg PO HS 01/22/20 10/01/20 History Tab] Clomipramine HCl [Anafranil] 50 mg PO TID 01/22/20 10/04/20 History Dapagliflozin/Metformin HCl 1 tab PO DAILY 01/22/20 10/04/20 History [Xigduo Xr 5 mg-1,000 mg Tablet] Rizatriptan Benzoate [Maxalt] 10 mg PO DAILYP PRN 01/22/20 10/01/20 History Temazepam [Restoril] 15 mg PO HS 01/22/20 10/01/20 History Triamterene/Hydrochlorothiazid 1 each PO DAILYP PRN 01/22/20 10/01/20 History [Triamterene-Hctz 37.5-25 mg Tb] clonazePAM [Clonazepam] 0.5 mg PO BID 01/22/20 10/01/20 History Fluconazole [Diflucan 150mg tab] 150 mg PO WESA 10/01/20 10/02/20 History Insulin Degludec [Tresiba 48 units SQ DAILY 10/01/20 10/01/20 History Flextouch U-100] Oxycodone HCl/Acetaminophen 5 mg PO Q4HP PRN 10/01/20 10/02/20 History [Oxycodone-Acetaminophen 5-325] hydrOXYzine HCL [Hydroxyzine HCl] 50 mg PO HS 10/01/20 10/01/20 History Clobetasol Propionate 1 applicatio TP DAILY 10/02/20 10/02/20 History Clotrimazole/Betamethasone Dip 1 applicatio TP BID 10/02/20 10/02/20 History [Lotrisone cream 15gm tube] Sulfamethoxazole/Trimethoprim 1 each PO BID 10/02/20 10/02/20 History [Bactrim DS tablet] bisoproloL fumarate [Bisoprolol 10 mg PO DAILY 10/02/20 10/02/20 History 10mg Tablet] Height: 1.68 m Weight: 92 kg Laboratory Results:: Laboratory Results - last 24 hr 10/04/20 11:03: POC Glucose 221 H 10/04/20 17:40: Vancomycin Trough 16.9 H 10/04/20 17:40: Sodium 139, Potassium 4.6 D, Chloride 106, Carbon Dioxide 28, Anion Gap 9.6, BUN 7 D, Creatinine 0.50 L, Estimated Creat Clear 215, Estimated GFR 136, Est GFR ( Amer) 165, Glucose 284 H, Calcium 8.9 10/04/20 17:46: POC Glucose 283 H 10/04/20 20:37: POC Glucose 236 H Medical History: Reports:: Cancer (basal cell), Diabetes Mellitus Type 2, Gastroesophageal Reflux Disease(GERD), Hyperlipidemia, Migraine Denies:: Diabetes Mellitus Type 1, MRSA Assessment and Plan (1) Abscess of skin or subcutaneous tissue Status: Acute Qualifiers: Site of cutaneous abscess: buttock Qualified Code(s): L02.31 - Cutaneous abscess of buttock Category: Medical Code(s): L02.91 - Cutaneous abscess, unspecified (2) Anxiety disorder Status: Acute Category: Medical Code(s): F41.9 - Anxiety disorder, unspecified (3) Type 2 diabetes mellitus Status: Chronic Qualifiers: Diabetes mellitus mcfp insulin use: unspecified mcfp insulin use status Diabetes mellitus complication status: with other specified complication Qualified Code(s): E11.69 - Type 2 diabetes mellitus with other specified complication Category: Medical Code(s): E11.9 - Type 2 diabetes mellitus without complications (4) Hyperglycemia Status: Acute Category: Medical Code(s): R73.9 - Hyperglycemia, unspecified - Assessment and plan all Dx Assessment and Plan for all problems:: PATIENT'S VANCOMYCIN TROUGH LEVEL WAS 16.9 MCG/ML OVERNIGHT. RECOMMENDED CONTINUING WITH VANCOMYCIN 1750 MG Q8H AT THIS TIME. PHARMACY WILL FOLLOW DAILY AND ADJUST APPROPRIATE.
[2020-10-05 12:08] LABS: POC Glucose,Bedside 190 (70-110)
[2020-10-05 20:08] LABS: POC Glucose,Bedside 177 (70-110)
--- NOTE | 2020-10-07 10:47 | HMH.DCSUM ---
General - General Admission date:: 10/02/20 <Clyde Almodovar - 11/05/20 08:15> 10/02/20 <Rosanne Gonzalez - 10/07/20 11:18> Discharge date: 10/05/20 <Rosanne Gonzalez - 10/07/20 11:18> HPI HPI: Olya is a 40-year-old white female with a history of insulin-dependent diabetes mellitus and anxiety disorder who has had recent problems with labial abscesses. She saw her clerical associate on 09/29/20 with a right labial abscess which was drained in the office and she was started on oral Bactrim. The next day on 09/30/20, she had another abscess that developed on the left labium. She again saw her clerical associate and this was also incised and drained in the office. Yesterday, on 10/01/20, she began having increasing pain in the perineal and buttock area and was running fever up to 102. She contacted her clerical associate and reported her symptoms and was directed to the emergency room. She was evaluated in the ER last night and found to have an elevated white count of 17,000. On exam she appeared to have developed an abscess of the perineum and buttock area and is admitted at this time for surgical consultation. <Rosanne Gonzalez - 10/07/20 11:18> Hospital Course Hospital Course: The patient was admitted and Dr. Truong was consulted. She was empirically started on IV vancomycin and her white count did improve. She was started on sliding scale insulin for management of her diabetes. She was seen by Dr. Truong and taken to the OR on 10/02/2020 for incision and drainage of the left perirectal abscess. Dr. Truong felt she would need antibiotic coverage with Zosyn and vancomycin pending her cultures. Her home medications were resumed and dressing changes were performed in the hospital. She continued with some perineal pain requiring morphine for pain management. There was decreasing induration and erythema of the abscess. Dr. Truong felt she was stable to be discharged home. Wound culture showed no growth after 48 hours. She was stable to be discharged home on Augmentin and will follow up with Dr. Truong in his office. <Rosanne Gonzalez - 10/07/20 11:18> Objective Vital signs: Temp Pulse Resp BP Pulse Ox 97.9 F 70 17 115/88 94 L 10/05/20 07:49 10/05/20 07:49 10/05/20 07:49 10/05/20 07:49 10/05/20 08:00 <Clyde Almodovar - 11/05/20 08:15> Temp Pulse Resp BP Pulse Ox 97.9 F 70 17 115/88 94 L 10/05/20 07:49 10/05/20 07:49 10/05/20 07:49 10/05/20 07:49 10/05/20 08:00 <Rosanne Gonzalez - 10/07/20 11:18> Narrative: - Constitutional no acute distress Comments: Awakened for physical assessment. - *Routine Respiratory Exam Present: CTA bilaterally (Anteriorly and posteriorly) - *Routine Cardiovascular Exam Present: RRR - *Routine Abdominal Exam Present: soft, normoactive bowel sounds. Absent: tenderness - *Routine Extremities Exam Absent: edema, calf tenderness - *Routine Neurological Exam Present: alert, oriented X3 <Rosanne Gonzalez - 10/07/20 11:18> Results Labs on day of discharge: Preliminary micro results at discharge 10/02/20 10:28 Abscess Culture - Preliminary Rectum NO GROWTH AFTER 4 DAYS <Rosanne Gonzalez - 10/07/20 11:18> DS: Diagnosis - Discharge Diagnosis (1) Abscess of skin or subcutaneous tissue Status: Acute (2) Anxiety disorder Status: Acute (3) Type 2 diabetes mellitus Status: Chronic (4) Hyperglycemia Status: Acute <Rosanne Gonzalez - 10/07/20 10:47> (1) Abscess of skin or subcutaneous tissue Status: Chronic (2) Anxiety disorder Status: Acute (3) Type 2 diabetes mellitus Status: Chronic (4) Hyperglycemia Status: Acute <Clyde Almodovar Romaine - 11/05/20 08:15> Discharge Plan - Patient Discharge Instructions ACTIVITY: Limited activity <Rosanne Gonzalez - 10/07/20 11:18> DIET: diabetic diet <Rosanne Gonzalez - 10/07/20 11:18> Patient Instructions: DI for Incision and Drainage of a Skin A
== END 2020-10-05 14:56 | disposition home or self-care (01) | DRG 395 ==
LOC: ER 23:07 → 2ND 10-02 00:16
PROVIDERS: Surgery; Admitting Provider Family Medicine; Emergency Provider Emergency Medicine; PCP Physician Assistant; Visit Provider Family Medicine
PROC: 0J990ZX Drainage of Buttock Subcutaneous Tissue and Fascia, Open Approach, Diagnostic (ICD-10-PCS; CPT 46040; principal; 2020-10-02 10:00)
DX: K61.1 Rectal abscess (principal); E11.9 Type 2 diabetes mellitus without complications; Z79.4 Long term (current) use of insulin
CPT/HCPCS: 46040; 36415; 80048; 80053; 80202; 81001; 81025; 82009; 82962; 83605; 84145; 85007; 85025; 85651; 86140; 87040; 87070; 87075; 87205; 87581; 87633; 87798; 99282; J2405; J2543; J3370

== ENCOUNTER 2020-10-06 14:05 | Outpatient (CLI) | payer BC, SELFPAY | END 2020-10-06 14:20 | disposition home or self-care (01) | LOC: INF 14:05 | PROVIDERS: Visit Provider Surgery | DX: L02.31 Cutaneous abscess of buttock (principal); Z48.01 Encounter for change or removal of surgical wound dressing | CPT/HCPCS: G0463 ==

== ENCOUNTER 2020-10-07 14:17 | Outpatient (CLI) | payer BC, SELFPAY | END 2020-10-07 14:35 | disposition home or self-care (01) | LOC: INF 14:17 | PROVIDERS: Visit Provider Surgery | DX: K61.1 Rectal abscess (principal) | CPT/HCPCS: G0463 ==

== ENCOUNTER 2020-10-08 14:15 | Outpatient (CLI) | payer BC, SELFPAY | END 2020-10-08 14:55 | disposition home or self-care (01) | LOC: INF 14:20 | PROVIDERS: Visit Provider Surgery | DX: K61.1 Rectal abscess (principal) | CPT/HCPCS: G0463 ==

== ENCOUNTER → 2020-10-09 14:09 | Outpatient (CLI) | payer BC, SELFPAY ==
[2020-10-09 17:20] VITALS: BP 141/88; PULSE 103; RESP 20; TEMP 37.1; O2SAT 98
== END ==
PROVIDERS: PCP Family Medicine; Visit Provider Surgery
DX: K61.1 Rectal abscess (principal); L02.31 Cutaneous abscess of buttock; Z48.01 Encounter for change or removal of surgical wound dressing
CPT/HCPCS: G0463

== ENCOUNTER → 2020-10-10 13:26 | Outpatient (CLI) | payer BC, SELFPAY ==
[2020-10-10 13:43] VITALS: BP 157/92; PULSE 103; RESP 18; TEMP 36.7; O2SAT 97
== END ==
PROVIDERS: PCP Family Medicine; Visit Provider Surgery
DX: L02.31 Cutaneous abscess of buttock (principal); Z48.01 Encounter for change or removal of surgical wound dressing
CPT/HCPCS: G0463

== ENCOUNTER 2020-10-12 14:55 | Outpatient (CLI) | payer BC, SELFPAY | END 2020-10-12 15:15 | disposition home or self-care (01) | LOC: INF 14:57 | PROVIDERS: Visit Provider Surgery | DX: L02.31 Cutaneous abscess of buttock (principal); Z48.01 Encounter for change or removal of surgical wound dressing | CPT/HCPCS: G0463 ==

== ENCOUNTER 2020-10-14 15:15 | Outpatient (CLI) | payer BC, SELFPAY ==
--- NOTE | 2020-10-14 15:51 | PC.NURSE ---
PT DID NOT SHOW FOR DRESSING CHANGE YESTERDAY. DRESSING/PACKING NO LONGER PRESENT. IRRIGATED WOUND WITH NS, PACKED WITH DRY GAUZE, COVERED WITH DRY GAUZE, AND TAPED IN PLACE. LEFT BUTTOCK RED AND GALDED. IS AWARE. HAS ANOTHER F/U ON 10/18/20.
== END 2020-10-14 15:35 | disposition home or self-care (01) ==
LOC: INF 15:18
PROVIDERS: Visit Provider Surgery
DX: L02.31 Cutaneous abscess of buttock; Z48.01 Encounter for change or removal of surgical wound dressing
CPT/HCPCS: G0463

== ENCOUNTER 2020-10-16 13:25 | Inpatient (IN) | payer BC, SELFPAY ==
[2020-10-16] VITALS (8 sets, daily range): BP systolic 149–172; BP diastolic 74–101; PULSE 103–151; RESP 18–24; TEMP 36.6–36.8; O2SAT 95–98; BMI 30.3; BMI 31.5
--- NOTE | 2020-10-16 13:48 | ECG_ITS ---
APPROVED REPORT Exam: Resting ECG HR:130 bpm ECG Measurements Heart Rate 130 AXES WY 138 P 29 QRSd 82 QRS 30 QT 302 T 29 QTc 444 Conclusion Sinus tachycardia Otherwise normal ECG Electronically signed by : Raman Hopson, 10/16/2020 20:18:30
--- NOTE | 2020-10-16 14:35 | XR_ITS ---
PROCEDURE INFORMATION: Exam: XR Chest Exam date and time: 10/16/2020 2:35 PM Age: 40 years old Clinical indication: Device placement; Patient HX: Cvc placement TECHNIQUE: Imaging protocol: XR of the chest. Views: 1 view. COMPARISON: CR CXR2V XR chest 2V 05/28/2018 7:44 PM FINDINGS: Tubes, catheters and devices: Right-sided central catheter is in place with the tip in the superior vena cava. Lungs: Atelectatic changes noted within the right lung base. Pleural spaces: There is no evidence of pneumothorax. There are no pleural effusions present. Heart/Mediastinum: Unremarkable. No cardiomegaly. Diaphragm: There is nonspecific elevation of the right hemidiaphragm. Bones/joints: Unremarkable. IMPRESSION: 1. Right-sided central catheter is in place with the tip in the superior vena cava. 2. There is no evidence of pneumothorax. 3. Atelectatic changes noted within the right lung base.
--- NOTE | 2020-10-16 14:35 | HMH.EDGENADL ---
ED Disposition Clinical Impression: MERRITT (acute kidney injury) Hyperglycemia due to type 2 diabetes mellitus Qualifiers: Diabetes mellitus fci insulin use: with intermodal customer service use Qualified Code(s): E11.65 - Type 2 diabetes mellitus with hyperglycemia; Z79.4 - [facility] (current) use of insulin Disposition: Admitted As Inpatient Condition on Discharge: Serious Instructions: DI for Hyperglycemia -- Adult Referrals: Clyde Almodovar MD [Primary Care Provider] - - Critical Care Critical Care Time: No Attestation: On 10/16/20, the high probability of a clinically significant, sudden or life threatening deterioration of the following system(s) required my full and direct attention, intervention and personal management. The time I documented below is in addition to time spent performing reported procedures but includes the following listed in this critical care notation. Medical Decision Making - Medical Records Medical records reviewed: Yes: I reviewed the patient's medical records. - Solo Inquiry Pt receiving controlled substance: No Vital Signs: 10/16/20 14:01 10/16/20 14:33 Temperature 98.1 F Temperature Source Oral Pulse Rate 133 H Pulse Rate [Left] 151 H Respiratory Rate 24 22 Blood Pressure 218/195 H Blood Pressure [Right Arm] 159/101 H Blood Pressure Mean [Right Arm] 120 02 Sat by Pulse Oximetry 97 94 L - Lab Data Lab results reviewed: Yes: I reviewed the patient's lab results. Lab Results 10/16/20 13:53: VBG pH 7.41, VBG pCO2 36.9, VBG pO2 67.9 H, VBG HCO3 22.7 L, VBG Total CO2 23.8, VBG O2 Saturation 94.3 H, VBG Base Excess -2.0 10/16/20 15:00: WBC 10.6, RBC 4.62, Hgb 14.1, Hct 43.4, MCV 93.9, MCH 30.5, MCHC 32.4, RDW 12.8, Plt Count 671 H, MPV 8.0, Neut % (Auto) 58.5, Lymph % (Auto) 27.7, [place] % (Auto) 11.5 H, Eos % (Auto) 0.9, Baso % (Auto) 1.4, Neut # (Auto) 6.2, Lymph # (Auto) 2.9, [place] # (Auto) 1.2 H, Eos # (Auto) 0.1, Baso # (Auto) 0.2 10/16/20 15:00: Sodium 123 L, Potassium 4.3, Chloride 86 L, Carbon Dioxide 21 L, Anion Gap 20.3 H, BUN 31 H, Creatinine 2.50 H, Estimated Creat Clear 40, Estimated GFR 21 L, Est GFR ( Amer) 26 L, Glucose 887 H*, Calcium 9.5, Magnesium 1.9, Total Bilirubin 0.6, AST 19, ALT 21, Alkaline Phosphatase 223 H, Total Protein 8.4 H, Albumin 4.3, Globulin 4.1 H, Albumin/Globulin Ratio 1.0 L, Acetone Level None detected 10/16/20 15:00: SARS-CoV-2 (PCR) Not detected, Influenza A Untype (PCR) Not detected, Influenza Type B (PCR) Not detected 10/16/20 15:00: Lipase 248 10/16/20 15:15: Urine Color Yellow, Urine Appearance Clear, Urine pH 5.5, Ur Specific [place] 1.010, Urine Protein Negative, Urine Glucose (UA) 3+, Urine Ketones Negative, Urine Blood Trace-i, Urine Nitrate Negative, Urine Bilirubin Negative, Urine Urobilinogen 0.2, Ur Leukocyte Esterase Trace, Urine RBC Occasional, Urine WBC 3-5, Ur Squamous Epith Cells 5-10, Amorphous Sediment 2+, Urine Bacteria None Result diagrams: 10/16/20 15:00 10/16/20 15:00 Orders (Tests/Meds): ED MEDICATIONS Generic Name Dose Route Start Last Admin Trade Name Freq PRN Reason Stop Dose Admin Sodium Chloride 1,000 mls @ 150 mls/hr 10/16/20 16:30 Sod Chlor 0.9% 1000ml Bag IV 11/15/20 16:29 .Q6H40M AURELIA Pantoprazole Sodium 40 mg 10/17/20 09:00 Pantoprazole 40mg Tablet PO 11/16/20 08:59 DAILY AURELIA Sodium Chloride 10 ml 10/16/20 13:53 Sodium Chloride 0.9% 10ml Vial IV 11/15/20 13:52 NEEDED PRN dilute protonix Discontinued Medications Generic Name Dose Route Start Last Admin Trade Name Freq PRN Reason Stop Dose Admin Sodium Chloride 1,000 mls @ 999 mls/hr 10/16/20 14:00 10/16/20 15:09 Sod Chlor 0.9% 1000ml Bag IV 10/16/20 15:00 999 mls/hr .Q1H1M AURELIA Administration Insulin Human Regular 8 unit 10/16/20 13:55 10/16/20 15:09 Insulin Human Regular 100 Units/Ml 10ml Vial IVP 10/16/20 13:56 8 unit ONCE ONE Administration Metoclopramide HCl 10 mg
[2020-10-16 15:08] LABS: Basophils # 0.2 K/mm3 (0-0.2); Eosinophils # 0.1 K/mm3 (0.0-0.4); Mean Corpuscular HGB Conc 32.4 g/dL (31.8-35.4); Mean Corpuscular Hemoglobin 30.5 pg (27.0-31.2)
[2020-10-16 15:11] LABS: Basophils % 1.4 % (0.1-2.0); Eosinophils % 0.9 % (0.1-12.0); Hematocrit 43.4 % (37.0-47.0); Hemoglobin 14.1 g/dL (12.2-16.2); Lymphocytes # 2.9 K/mm3 (0.7-4.5); Lymphocytes % 27.7 % (10-50); Mean Corpuscular Volume 93.9 fl (81-99); Monocytes # 1.2 K/mm3 (0.1-1.0); Monocytes % 11.5 % (1.7-9.3); Neutrophils # 6.2 K/mm3 (1.8-7.8); Neutrophils % 58.5 % (37.0-80.0); Platelet Count 671 K/mm3 (142-424); Red Blood Count 4.62 M/mm3 (4.20-5.40); Red Cell Distribution Width 12.8 % (11.5-17.5); White Blood Count 10.6 K/mm3 (4.8-10.8)
[2020-10-16 15:17] LABS: Alanine Aminotransferase 21 U/L (12-78); Albumin Level 4.3 g/dl (3.5-5.0); Alkaline Phosphatase 223 U/L (38-126); Anion Gap 20.3 mEq/L (5-15); Aspartate Amino Transferase 19 U/L (14-36); Bilirubin,Total 0.6 mg/dl (0.2-1.3); Blood Urea Nitrogen 31 mg/dl (7-17); Calcium 9.5 mg/dl (8.4-10.2); Carbon Dioxide 21 mmol/L (22.0-30.0); Chloride 86 mmol/L (98-107); Creatinine Clearance Estimated 40 mL/min (50-200); Estimated Glomerular Filt Rate 21 ml/min (>60); GFR (African American) 26 ML/MIN (>60); Globulin 4.1 g/dL (1.3-3.2); Magnesium 1.9 mg/dl (1.6-2.3); Potassium 4.3 mmoL/L (3.5-5.1); Sodium 123 mmol/L (136-145); Total Protein,Serum 8.4 g/dl (6.3-8.2)
[2020-10-16 15:22] LABS: Acetone, Serum (Rapid) None Detected (None Detect)
[2020-10-16 15:25] LABS: Glucose 887 mg/dl (74-100)
[2020-10-16 15:31] LABS: VBG HCO3 22.7 mmol/L (23-30); VBG Oxygen Saturation 94.3 % (50-70); VBG PCO2 36.9 mmol/L (35-51); VBG PH 7.41 mmol/L (7.31-7.41); VBG PO2 67.9 mmol/L (28-40); VBG Total CO2 23.8 mmol/L (23-27)
[2020-10-16 15:37] LABS: Microscopic, Urine URINE MICROSCOPIC (MICROSCOPIC)
[2020-10-16 15:39] LABS: Appearance,Urine CLEAR (Clear); Bilirubin,Urine Negative (Negative); Blood, Urine TRACE-I (Negative); Color,Urine YELLOW (Yellow); Glucose,Urine (UA) 3+ (Negative); Ketones,Urine Negative (Negative); Leukocyte Esterase,Urine TRACE (Negative); Nitrate,Urine Negative (Negative); PH,Urine 5.5 (5.0-8.5); Protein,Urine Negative (Negative); Urobilinogen,Urine 0.2 EU/dl (0.2)
[2020-10-16 15:44] LABS: Amorphous Sediment,Urine 2+ /lpf; RBC,Urine Occasional #/hpf (0-3)
[2020-10-16 15:47] LABS: Coronavirus 19, PCR Not Detected (NotDetected); Influenza A, PCR Not Detected (NotDetected); Influenza B, PCR Not Detected (NotDetected)
[2020-10-16 15:58] LABS: Lipase 248 U/L (23-300)
--- NOTE | 2020-10-16 16:20 | PC.NURSE ---
dr crenshaw speaking with dr oro
[2020-10-16 16:35] LABS: Chloride 92 mmol/L (98-107); Potassium 3.8 mmoL/L (3.5-5.1); Sodium 129 mmol/L (136-145)
[2020-10-16 16:37] LABS: Alanine Aminotransferase 24 U/L (12-78); Aspartate Amino Transferase 20 U/L (14-36); Blood Urea Nitrogen 29 mg/dl (7-17); Creatinine Clearance Estimated 40 mL/min (50-200); Estimated Glomerular Filt Rate 21 ml/min (>60); GFR (African American) 26 ML/MIN (>60)
[2020-10-16 16:38] LABS: Albumin Level 4.3 g/dl (3.5-5.0); Albumin/Globulin Ratio 1.1 (1.1-1.8); Alkaline Phosphatase 210 U/L (38-126); Anion Gap 20.8 mEq/L (5-15); Bilirubin,Total 0.5 mg/dl (0.2-1.3); Calcium 9.3 mg/dl (8.4-10.2); Carbon Dioxide 20 mmol/L (22.0-30.0); Total Protein,Serum 8.3 g/dl (6.3-8.2)
[2020-10-16 16:48] LABS: Glucose 756 mg/dl (74-100)
--- NOTE | 2020-10-16 17:03 | PC.NURSE ---
report given to Jessie COLLINS.
--- NOTE | 2020-10-16 17:48 | PC.NURSE ---
retook patient FSBS and it was 558. doctor notified and BMP drawn
[2020-10-16 17:54] LABS: POC Glucose,Bedside 558 (70-110)
[2020-10-16 18:24] LABS: Anion Gap 15.3 mEq/L (5-15); Blood Urea Nitrogen 27 mg/dl (7-17); Calcium 8.7 mg/dl (8.4-10.2); Carbon Dioxide 20 mmol/L (22.0-30.0); Chloride 101 mmol/L (98-107); Creatinine Clearance Estimated 45 mL/min (50-200); Estimated Glomerular Filt Rate 25 ml/min (>60); GFR (African American) 30 ML/MIN (>60); Potassium 3.3 mmoL/L (3.5-5.1); Sodium 133 mmol/L (136-145)
--- NOTE | 2020-10-16 18:30 | PC.NURSE ---
pt arrived to the floor room 217 via stretcher from the ED. Insulin gtt infusing @ 10units/hr. Received call from lab reporting glucose of 503. Dr. Almodovar notified.
[2020-10-16 18:33] LABS: Glucose 503 mg/dl (74-100)
--- NOTE | 2020-10-16 19:17 | PC.NURSE ---
spoke to Dr. Almodovar. He ordered to continue Q1hr FSBS until it is below 200 then stop the insulin gtt and start high intesity SSI. He also ordered daily wet to dry dressing changes to buttock. All orders relayed to Sima Sandoval RN
[2020-10-16 20:45] LABS: POC Glucose,Bedside 217 (70-110)
--- NOTE | 2020-10-16 23:08 | PC.NURSE ---
Pictures of wound refused. DSG changed via sterile technique.
[2020-10-16 23:59] LABS: POC Glucose,Bedside 93 (70-110)
[2020-10-17] VITALS (12 sets, daily range): BP systolic 133–188; BP diastolic 84–99; PULSE 86–118; RESP 15–18; TEMP 36.6–36.8; O2SAT 94–100; BMI 31.4
[2020-10-17 05:18] LABS: POC Glucose,Bedside 415 (70-110)
[2020-10-17 06:30] LABS: Chloride 105 mmol/L (98-107); Potassium 3.4 mmoL/L (3.5-5.1); Sodium 138 mmol/L (136-145)
[2020-10-17 06:33] LABS: Anion Gap 14.4 mEq/L (5-15); Blood Urea Nitrogen 24 mg/dl (7-17); Calcium 8.6 mg/dl (8.4-10.2); Carbon Dioxide 22 mmol/L (22.0-30.0); Creatinine Clearance Estimated 52 mL/min (50-200); Estimated Glomerular Filt Rate 27 ml/min (>60); GFR (African American) 33 ML/MIN (>60)
[2020-10-17 06:35] LABS: Glucose 408 mg/dl (74-100)
--- NOTE | 2020-10-17 08:46 | HMH.HP ---
*Admission Date: 10/16/20 *Chief complaint: Nausea, vomiting, hyperglycemia *History of present illness: Patient is a 40-year-old white female with a history of type 2 diabetes mellitus who was recently hospitalized with a perirectal/perineal abscess that was surgically drained by Dr. Truong. She was discharged home on oral antibiotics and has been returning daily for dressing changes. She was seen in office 3 days ago with nausea and vomiting that she attributed to the oral antibiotics. She had just completed her course of antibiotics. Her blood sugar was elevated in office and she was started on a sliding scale of insulin but since then her sugars have continued to run high and she has had further nausea, vomiting, and according to her was hallucinating yesterday. She was brought to the emergency room for evaluation and found to have a blood sugar greater than 900. She was not however acidotic. Ketones were negative. BUN/creatinine were elevated. She was admitted for IV fluid hydration and started on an insulin drip. This morning she feels somewhat better. She has had no further vomiting since admission. She was able to eat a small amount of her breakfast. The insulin drip was discontinued last evening when her blood sugar became less than 200. BUN and creatinine have improved [facility] History Medical History: Reports:: Cancer (Basal cell carinoma on back.), Diabetes Mellitus Type 2, Gastroesophageal Reflux Disease(GERD), Hyperlipidemia, Migraine Denies:: Diabetes Mellitus Type 1, MRSA *Have you ever received a pneumonia vaccine?: No *Have you received a flu vaccine this season?: No Other Surgeries: Yes: Appendectomy, Cancer Surgery, Cholecystectomy, Splenectomy, Other (I&D of perirectal/perineal abscess) Amputation: No Fractures: No - *Social History Last grade of school completed: High school graduate Smoking Status: Never smoker Alcohol Intake: never Alcohol Intake Frequency:: a few times a month Substance Use Type: denies use *Occupational Status:: employed Housing: house Household Members: spouse, children *Travel in the last 8 weeks: None Family Hx:: Diabetes Review of Systems - Constitutional Reports fatigue, Reports malaise, Reports weakness, Reports weight loss - Eyes Denies change in vision - ENT Reports dizziness, Denies abnormal hearing - *Cardiovascular Denies chest pain, Denies shortness of breath - *Respiratory Denies chest congestion, Denies shortness of breath - *Gastrointestinal Reports nausea, Reports vomiting, Denies abdominal pain - *Genitourinary Denies abnormal periods, Denies painful urination - *Musculoskeletal Denies joint swelling, Denies muscle cramps - Integumentary/Breasts Reports hair loss, Denies yellowing of the skin - *Neurologic Reports confusion, Reports dizziness - Psychiatric Reports anxiety, Reports change in appetite, Denies panic attacks - Endocrine Denies cold intolerance, Denies increased urination - Hematologic/Lymphatic Denies easy bruising - Allergic/Immunologic Denies GI upset with certain foods Meds Home Medications Medication Instructions Recorded Confirmed Type Atorvastatin Calcium [Lipitor 40mg 40 mg PO HS 01/22/20 10/16/20 History Tab] Clomipramine HCl [Anafranil] 50 mg PO TID 01/22/20 10/16/20 History Dapagliflozin/Metformin HCl 1 tab PO DAILY 01/22/20 10/16/20 History [Xigduo Xr 5 mg-1,000 mg Tablet] Rizatriptan Benzoate [Maxalt] 10 mg PO DAILYP PRN 01/22/20 10/16/20 History Temazepam [Restoril] 15 mg PO HS 01/22/20 10/16/20 History Triamterene/Hydrochlorothiazid 1 each PO DAILYP PRN 01/22/20 10/16/20 History [Triamterene-Hctz 37.5-25 mg Tb] clonazePAM [Clonazepam] 0.5 mg PO BID 01/22/20 10/16/20 History Fluconazole [Diflucan 150mg tab] 150 mg PO WESA 10/01/20 10/16/20 History Insulin Degludec [Tresiba 48 units SQ DAILY 10/01/20 10/16/20 History Flextouch U-100] Oxycodone HCl/Acetaminophen 5 mg PO Q4HP PRN
--- NOTE | 2020-10-17 09:05 | HMH.PHAVTE ---
[facility] Pharmacy VTE Monitoring - Patient Demographics Admission date: 10/16/20 Report Date: 10/17/20 Time: 09:05 Allergies/Adverse Reactions: Patient Allergies No Known Allergies Allergy (Verified 10/16/20 19:41) Height: 1.68 m Weight: 88.621 kg Patient Problems: Current Active Problems Type 2 diabetes mellitus (Chronic) Dehydration (Acute) Hyperglycemia without ketosis (Acute) Anxiety disorder (Acute) MERRITT (acute kidney injury) (Acute) Hyperglycemia due to type 2 diabetes mellitus (Acute) - VTE Risk Labs: VTE Related Lab Results Hgb 14.1 g/dL (12.2-16.2) 10/16/20 15:00 Hct 43.4 % (37.0-47.0) 10/16/20 15:00 Plt Count 671 K/mm3 (142-424) H 10/16/20 15:00 BUN 24 mg/dl (7-17) H 10/17/20 05:39 Creatinine 2.00 mg/dl (0.52-1.04) H 10/17/20 05:39 Estimated Creat Clear 52 mL/min (50-200) 10/17/20 05:39 Was VTE Risk Assessment Performed: Yes VTE Score: 3 VTE Risk Level: Low Risk Clinical Trial Participant: No - Prophylaxis VTE Prophylaxis Ordered?: Yes Types of VTE Prophylaxis: TEDS Knee High
--- NOTE | 2020-10-17 18:02 | PC.NURSE ---
shift note: Pt has been stable. Gets OOB without assistance. FSBS 231 and 300 today. On SSI. O2 sat mid-high 90s on RA. NS @ 150mL/hr infusing via right IJ TLDL. No acute changes noted.
[2020-10-17 20:29] LABS: POC Glucose,Bedside 194 (70-110)
--- NOTE | 2020-10-17 22:55 | PC.NURSE ---
[address] PATIENT TAKING A SHOWER . TRASH EMPTIED AT THIS TIME.
--- NOTE | 2020-10-18 00:09 | PC.NURSE ---
DSG changed on left buttock. She stated she has an appt scheduled with Dr. Truong tomorrow and she plans to call his office to let him know she is in the hospital. Her glucose was 194 at bedtime.
[2020-10-18 01:10] LABS: POC Glucose,Bedside 231 (70-110)
[2020-10-18 01:10] LABS: POC Glucose,Bedside 300 (70-110)
[2020-10-18 04:00] VITALS: BP 133/70; PULSE 89; RESP 17; TEMP 36.7; O2SAT 97
[2020-10-18 05:00] VITALS: BMI 31.6
[2020-10-18 06:00] LABS: POC Glucose,Bedside 224 (70-110)
[2020-10-18 06:16] LABS: Chloride 109 mmol/L (98-107); Potassium 3.2 mmoL/L (3.5-5.1); Sodium 141 mmol/L (136-145)
[2020-10-18 06:19] LABS: Anion Gap 12.2 mEq/L (5-15); Blood Urea Nitrogen 15 mg/dl (7-17); Calcium 8.5 mg/dl (8.4-10.2); Carbon Dioxide 23 mmol/L (22.0-30.0); Creatinine Clearance Estimated 75 mL/min (50-200); Estimated Glomerular Filt Rate 41 ml/min (>60); GFR (African American) 50 ML/MIN (>60); Glucose 246 mg/dl (74-100)
--- NOTE | 2020-10-18 06:37 | PC.NURSE ---
[address] PATIENT ASLEEP . ICE WATER REFILLED AND TRASH EMPTIED
[2020-10-18 08:00] VITALS: BP 146/83; PULSE 100; RESP 19; TEMP 36.5; O2SAT 99
--- NOTE | 2020-10-18 09:09 | HMH.ACPN2 ---
<Mel Spaulding - Last Filed: 10/18/20 09:09> Internal Medicine - PN: Subj *Date: 10/18/20 *Time: 09:09 Interval history: Patient did not have any further vomiting or diarrhea during the night. She has had some nausea. She is voiding QS. She denies chest pain and shortness of breath. She had wound care with her shower this a.m. She states the wound is filling in and is healing. Blood chemistries show sodium of 141 and potassium of 3.2. Creatinine has improved from 2-1.4. She receives Percocet for her pain. She was started on p.o. potassium for hypokalemia. Exam Vital signs and Labs for Last 24 Hours: Temp Pulse Resp BP Pulse Ox 98.0 F 89 17 133/70 97 10/18/20 04:00 10/18/20 04:00 10/18/20 04:00 10/18/20 04:00 10/18/20 04:00 Laboratory Results - last 24 hr 10/17/20 11:20: POC Glucose 231 H 10/17/20 16:07: POC Glucose 300 H 10/17/20 19:49: POC Glucose 194 H 10/18/20 05:43: POC Glucose 224 H 10/18/20 05:45: Sodium 141, Potassium 3.2 L, Chloride 109 H, Carbon Dioxide 23, Anion Gap 12.2, BUN 15 D, Creatinine 1.40 H D, Estimated Creat Clear 75, Estimated GFR 41 L, Est GFR ( Amer) 50 L D, Glucose 246 H, Calcium 8.5 I & O for Last 24 hours: Intake & Output 10/15/20 10/16/20 10/17/20 10/18/20 11:59 11:59 11:59 11:59 Intake Total 4027 / 4027 3493 / 3493 Balance 4027 / 4027 3493 / 3493 Weight 195 lb 6.014 oz 197 lb 1 oz - Constitutional no acute distress - *Routine Respiratory Exam Present: CTA bilaterally (Anteriorly and posteriorly) - *Routine Cardiovascular Exam Present: RRR - *Routine Abdominal Exam Present: soft, normoactive bowel sounds. Absent: tenderness - *Routine Extremities Exam Present: pulses intact. Absent: edema, calf tenderness - *Routine Neurological Exam Present: alert, oriented X3 Assessment and Plan (1) MERRITT (acute kidney injury) Status: Acute Category: Medical Code(s): N17.9 - Acute kidney failure, unspecified (2) Hyperglycemia due to type 2 diabetes mellitus Status: Acute Qualifiers: Diabetes mellitus penitentiary insulin use: with termite treater use Qualified Code(s): E11.65 - Type 2 diabetes mellitus with hyperglycemia; Z79.4 - termite treater (current) use of insulin Category: Medical Code(s): E11.65 - Type 2 diabetes mellitus with hyperglycemia (3) Anxiety disorder Status: Acute Category: Medical Code(s): F41.9 - Anxiety disorder, unspecified (4) Dehydration Status: Acute Category: Medical Code(s): E86.0 - Dehydration (5) Hyperglycemia without ketosis Status: Acute Category: Medical Code(s): R73.9 - Hyperglycemia, unspecified (6) Type 2 diabetes mellitus Status: Chronic Qualifiers: Diabetes mellitus termite treater insulin use: unspecified termite treater insulin use status Diabetes mellitus complication status: with other specified complication Qualified Code(s): E11.69 - Type 2 diabetes mellitus with other specified complication Category: Medical Code(s): E11.9 - Type 2 diabetes mellitus without complications (7) Abscess of skin or subcutaneous tissue Status: Chronic Qualifiers: Site of cutaneous abscess: buttock Qualified Code(s): L02.31 - Cutaneous abscess of buttock Category: Medical Code(s): L02.91 - Cutaneous abscess, unspecified (8) Acute gastroenteritis Status: Acute Category: Medical Code(s): K52.9 - Noninfective gastroenteritis and colitis, unspecified - Assessment and plan all Dx Assessment and Plan for all problems:: Blood sugars have stabilized. Function has improved. Continue with antiemetics and IV fluids. <Clyde Almodovar - Last Filed: 10/19/20 23:13> Internal Medicine - PN: Subj *Date: 10/19/20 *Time: 23:12 Exam Vital signs and Labs for Last 24 Hours: Temp Pulse Resp BP Pulse Ox 98.0 F 86 17 136/75 99 10/19/20 07:40 10/19/20 07:40 10/19/20 07:40 10/19/20 07:40 10/19/20 08:00 Laboratory Results - last 24 hr
[2020-10-18 11:36] LABS: POC Glucose,Bedside 229 (70-110)
[2020-10-18 15:09] VITALS: BP 134/83; PULSE 83; RESP 16; TEMP 36.8; O2SAT 96
[2020-10-18 16:57] LABS: POC Glucose,Bedside 170 (70-110)
--- NOTE | 2020-10-18 17:26 | PC.NURSE ---
Pt has slept most of this shift. Pt remains on RA. Pt has c/o N/V x1 this shift. PRN Phenergan ordered per MD Almodovar, favorable results after administration. Pt has required SSI x2 this shift. No other acute changes or complaints at this time. Will continue to monitor.
[2020-10-18 19:55] VITALS: BP 130/80; PULSE 81; RESP 16; TEMP 36.8; O2SAT 97
[2020-10-18 21:30] LABS: POC Glucose,Bedside 108 (70-110)
--- NOTE | 2020-10-18 21:47 | PC.NURSE ---
trash pulled and snack passed at this time
[2020-10-19 04:00] VITALS: BP 134/84; PULSE 73; RESP 18; TEMP 36.6; O2SAT 98
--- NOTE | 2020-10-19 04:35 | PC.NURSE ---
Pt has rested well this shift. Has c/o nausea early in shift. Medicated per jun. DSG to (L) buttock was changed per order. No drainage or infection noted. VSS. No other concerns. Pt remains on RA. Lungs CTA. FSBS was 108 last evening. Will continue to monitor.
[2020-10-19 05:00] VITALS: BMI 31.7
--- NOTE | 2020-10-19 05:32 | PC.NURSE ---
ice water passed and trash pulled at this time
[2020-10-19 07:40] VITALS: BP 136/75; PULSE 86; RESP 17; TEMP 36.7; O2SAT 99
[2020-10-19 08:00] VITALS: O2SAT 99
[2020-10-19 08:45] LABS: POC Glucose,Bedside 115 (70-110)
--- NOTE | 2020-10-19 08:50 | HMH.ACPN2 ---
<Mel Spaulding - Last Filed: 10/19/20 08:50> Internal Medicine - PN: Subj *Date: 10/19/20 *Time: 08:50 Interval history: Patient initially states she had a bad night. States she vomited throughout the night. But then stated that she vomited once, received Phenergan, and then slept throughout the night. She is somewhat nauseated this a.m. but did eat a few bites of breakfast. She had no diarrhea. She is voiding QS. She did state both her legs hurt periodically throughout the night. Exam Vital signs and Labs for Last 24 Hours: Temp Pulse Resp BP Pulse Ox 98.0 F 86 17 136/75 99 10/19/20 07:40 10/19/20 07:40 10/19/20 07:40 10/19/20 07:40 10/19/20 07:40 Laboratory Results - last 24 hr 10/18/20 11:05: POC Glucose 229 H 10/18/20 16:47: POC Glucose 170 H 10/18/20 21:10: POC Glucose 108 10/19/20 04:54: POC Glucose 115 H I & O for Last 24 hours: Intake & Output 10/16/20 10/17/20 10/18/20 10/19/20 11:59 11:59 11:59 11:59 Intake Total 4027 / 4027 3813 / 3813 600 / 600 Balance 4027 / 4027 3813 / 3813 600 / 600 Weight 195 lb 6.014 oz 197 lb 1 oz 197 lb 7 oz - Constitutional no acute distress Comments: Awakened for exam. - *Routine Respiratory Exam Present: CTA bilaterally (Anteriorly and posteriorly) - *Routine Cardiovascular Exam Present: RRR - *Routine Abdominal Exam Present: soft, normoactive bowel sounds, tenderness (Diffusely and mildly tender) - *Routine Extremities Exam Absent: edema - *Routine Neurological Exam Present: alert, oriented X3 Assessment and Plan (1) MERRITT (acute kidney injury) Status: Acute Category: Medical Code(s): N17.9 - Acute kidney failure, unspecified (2) Hyperglycemia due to type 2 diabetes mellitus Status: Acute Qualifiers: Diabetes mellitus intermediate insulin use: with long term care social worker use Qualified Code(s): E11.65 - Type 2 diabetes mellitus with hyperglycemia; Z79.4 - half-way (current) use of insulin Category: Medical Code(s): E11.65 - Type 2 diabetes mellitus with hyperglycemia (3) Anxiety disorder Status: Acute Category: Medical Code(s): F41.9 - Anxiety disorder, unspecified (4) Dehydration Status: Acute Category: Medical Code(s): E86.0 - Dehydration (5) Hyperglycemia without ketosis Status: Acute Category: Medical Code(s): R73.9 - Hyperglycemia, unspecified (6) Type 2 diabetes mellitus Status: Chronic Qualifiers: Diabetes mellitus intermediate insulin use: unspecified long term care social worker insulin use status Diabetes mellitus complication status: with other specified complication Qualified Code(s): E11.69 - Type 2 diabetes mellitus with other specified complication Category: Medical Code(s): E11.9 - Type 2 diabetes mellitus without complications (7) Abscess of skin or subcutaneous tissue Status: Chronic Qualifiers: Site of cutaneous abscess: buttock Qualified Code(s): L02.31 - Cutaneous abscess of buttock Category: Medical Code(s): L02.91 - Cutaneous abscess, unspecified (8) Acute gastroenteritis Status: Acute Category: Medical Code(s): K52.9 - Noninfective gastroenteritis and colitis, unspecified (9) Hypokalemia Status: Acute Category: Medical Code(s): E87.6 - Hypokalemia - Assessment and plan all Dx Assessment and Plan for all problems:: Patient is currently receiving p.o. potassium. We will recheck this a.m. Possibly home in the p.m. <Clyde Almodovar - Last Filed: 10/19/20 23:14> Internal Medicine - PN: Subj *Date: 10/19/20 *Time: 23:13 Exam Vital signs and Labs for Last 24 Hours: Temp Pulse Resp BP Pulse Ox 98.0 F 86 17 136/75 99 10/19/20 07:40 10/19/20 07:40 10/19/20 07:40 10/19/20 07:40 10/19/20 08:00 Laboratory Results - last 24 hr 10/16/20 15:00: Serum Osmolality 313 H 10/19/20 04:54: POC Glucose 115 H 10/19/20 09:18: WBC 11.0 H, RBC 3.64 L, Hgb 11.1 L, Hct 33.4 L, MCV 91.9, MCH 30.5, MCHC 33.2, RDW 13.3, P
[2020-10-19 09:26] LABS: Basophils # 0.2 K/mm3 (0-0.2); Basophils % 1.4 % (0.1-2.0); Eosinophils # 0.3 K/mm3 (0.0-0.4); Eosinophils % 2.6 % (0.1-12.0); Hematocrit 33.4 % (37.0-47.0); Hemoglobin 11.1 g/dL (12.2-16.2); Lymphocytes # 5.2 K/mm3 (0.7-4.5); Lymphocytes % 47.1 % (10-50); Mean Corpuscular HGB Conc 33.2 g/dL (31.8-35.4); Mean Corpuscular Hemoglobin 30.5 pg (27.0-31.2); Mean Corpuscular Volume 91.9 fl (81-99); Mean Platelet Volume 7.9 fl (7.4-10.4); Monocytes # 1.1 K/mm3 (0.1-1.0); Monocytes % 9.6 % (1.7-9.3); Neutrophils # 4.3 K/mm3 (1.8-7.8); Neutrophils % 39.3 % (37.0-80.0); Platelet Count 571 K/mm3 (142-424); Red Blood Count 3.64 M/mm3 (4.20-5.40); Red Cell Distribution Width 13.3 % (11.5-17.5)
[2020-10-19 10:03] LABS: Chloride 108 mmol/L (98-107); Sodium 141 mmol/L (136-145)
[2020-10-19 10:04] LABS: Potassium 3.5 mmoL/L (3.5-5.1)
[2020-10-19 10:07] LABS: Anion Gap 11.5 mEq/L (5-15); Blood Urea Nitrogen 9 mg/dl (7-17); Calcium 8.1 mg/dl (8.4-10.2); Carbon Dioxide 25 mmol/L (22.0-30.0); Creatinine Clearance Estimated 105 mL/min (50-200); Estimated Glomerular Filt Rate 61 ml/min (>60); GFR (African American) 74 ML/MIN (>60); Glucose 235 mg/dl (74-100)
[2020-10-19 12:17] LABS: POC Glucose,Bedside 214 (70-110)
--- NOTE | 2020-10-20 16:54 | HMH.DCSUM ---
General - General Admission date:: 10/16/20 <Clyde Almodovar - 11/05/20 08:29> 10/16/20 <Rosanne Gonzalez - 10/20/20 16:57> Discharge date: 10/19/20 <Rosanne Gonzalez - 10/20/20 16:57> HPI HPI: Patient is a 40-year-old white female with a history of type 2 diabetes mellitus who was recently hospitalized with a perirectal/perineal abscess that was surgically drained by Dr. Truong. She was discharged home on oral antibiotics and has been returning daily for dressing changes. She was seen in office 3 days ago with nausea and vomiting that she attributed to the oral antibiotics. She had just completed her course of antibiotics. Her blood sugar was elevated in office and she was started on a sliding scale of insulin but since then her sugars have continued to run high and she has had further nausea, vomiting, and according to her was hallucinating yesterday. She was brought to the emergency room for evaluation and found to have a blood sugar greater than 900. She was not however acidotic. Ketones were negative. BUN/creatinine were elevated. She was admitted for IV fluid hydration and started on an insulin drip. This morning she feels somewhat better. She has had no further vomiting since admission. She was able to eat a small amount of her breakfast. The insulin drip was discontinued last evening when her blood sugar became less than 200. BUN and creatinine have improved <Rosanne Gonzalez - 10/20/20 16:57> Hospital Course Hospital Course: The patient was admitted for IV fluid hydration and monitoring of her blood sugar. Her BUN and creatinine improved with hydration as did her glucose. Subjectively she felt better. She was started on sliding scale insulin and her insulin drip was discontinued. Her home medications were resumed. She had no further vomiting or diarrhea but did have some nausea. She had some wound care for her abscess and it was healing nicely. She was continued on IV fluids and her potassium was replaced. She did have some more vomiting, but after receiving Phenergan, was able to rest and her vomiting subsided. She was stable to be discharged home and will follow up with Dr. Almodovar in the office. <Rosanne Gonzalez - 10/20/20 16:57> Objective Vital signs: Temp Pulse Resp BP Pulse Ox 98.0 F 86 17 136/75 99 10/19/20 07:40 10/19/20 07:40 10/19/20 07:40 10/19/20 07:40 10/19/20 08:00 <Clyde Almodovar - 11/05/20 08:29> Temp Pulse Resp BP Pulse Ox 98.0 F 86 17 136/75 99 10/19/20 07:40 10/19/20 07:40 10/19/20 07:40 10/19/20 07:40 10/19/20 08:00 <Rosanne Gonzalez - 10/20/20 16:57> Narrative: - Constitutional no acute distress Comments: Awakened for exam. - *Routine Respiratory Exam Present: CTA bilaterally (Anteriorly and posteriorly) - *Routine Cardiovascular Exam Present: RRR - *Routine Abdominal Exam Present: soft, normoactive bowel sounds, tenderness (Diffusely and mildly tender) - *Routine Extremities Exam Absent: edema - *Routine Neurological Exam Present: alert, oriented X3 <Rosanne Gonzalez - 10/20/20 16:57> DS: Diagnosis - Discharge Diagnosis (1) MERRITT (acute kidney injury) Status: Acute (2) Hyperglycemia due to type 2 diabetes mellitus Status: Acute (3) Anxiety disorder Status: Acute (4) Dehydration Status: Acute (5) Hyperglycemia without ketosis Status: Acute (6) Type 2 diabetes mellitus Status: Chronic (7) Abscess of skin or subcutaneous tissue Status: Chronic (8) Acute gastroenteritis Status: Acute (9) Hypokalemia Status: Acute <Rosanne Gonzalez - 10/20/20 16:54> (1) MERRITT (acute kidney injury) Status: Acute (2) Hyperglycemia due to type 2 diabetes mellitus Status: Acute (3) Anxiety disorder Status: Acute (4) Dehydration Status: Acute (5) Hyperglycemia without ketosis Status: Acute (6) Type 2 diabetes mellitus Status: Practice Support Specialist
== END 2020-10-19 14:40 | disposition home or self-care (01) | DRG 638 ==
LOC: ER 16:31 → 2ND 17:42
PROVIDERS: Admitting Provider Family Medicine; Emergency Provider Emergency Medicine; PCP Family Medicine; Visit Provider Family Medicine
DX: E11.65 Type 2 diabetes mellitus with hyperglycemia (principal); N17.9 Acute kidney failure, unspecified; L02.31 Cutaneous abscess of buttock; Z79.4 Long term (current) use of insulin; E87.6 Hypokalemia; K52.9 Noninfective gastroenteritis and colitis, unspecified; K21.9 Gastro-esophageal reflux disease without esophagitis; Z85.828 Personal history of other malignant neoplasm of skin; E86.0 Dehydration
CPT/HCPCS: 36415; 71045; 80048; 80053; 81001; 82009; 82803; 82962; 83690; 83735; 83930; 85025; 93005; 93041; 96365; 96366; 96367; 96372; 96375; 99284; C1751; J2405; U0003

== ENCOUNTER 2020-10-20 14:55 | Outpatient (CLI) | payer BC, SELFPAY | END 2020-10-20 15:15 | disposition home or self-care (01) | LOC: INF 15:05 | PROVIDERS: PCP Family Medicine; Visit Provider Surgery | DX: L02.31 Cutaneous abscess of buttock (principal); Z48.01 Encounter for change or removal of surgical wound dressing | CPT/HCPCS: G0463 ==

== ENCOUNTER 2020-10-21 14:01 | Outpatient (CLI) | payer BC, SELFPAY | END 2020-10-21 14:12 | disposition home or self-care (01) | LOC: INF 14:01 | PROVIDERS: Visit Provider Surgery | DX: L02.31 Cutaneous abscess of buttock (principal); Z48.01 Encounter for change or removal of surgical wound dressing | CPT/HCPCS: G0463 ==

== ENCOUNTER → 2020-12-03 07:07 | Outpatient (CLI) | payer BC, SELFPAY ==
[2020-12-03 07:44] LABS: Hemoglobin A1C 9.6 % (4.0-6.0)
[2020-12-03 09:14] LABS: Alanine Aminotransferase 23 U/L (12-78); Albumin Level 3.9 g/dl (3.5-5.0); Albumin/Globulin Ratio 1.3 (1.1-1.8); Alkaline Phosphatase 170 U/L (38-126); Anion Gap 14.6 mEq/L (5-15); Aspartate Amino Transferase 23 U/L (14-36); Bilirubin,Total 0.5 mg/dl (0.2-1.3); Blood Urea Nitrogen 13 mg/dl (7-17); Calcium 9.3 mg/dl (8.4-10.2); Carbon Dioxide 21 mmol/L (22.0-30.0); Chloride 105 mmol/L (98-107); Estimated Glomerular Filt Rate 136 ml/min (>60); GFR (African American) 165 ML/MIN (>60); Globulin 3.1 g/dL (1.3-3.2); Glucose 322 mg/dl (74-100); HDL Cholesterol 37 mg/dl (40-60); Potassium 4.6 mmoL/L (3.5-5.1); Sodium 136 mmol/L (136-145)
[2020-12-03 09:25] LABS: Direct LDL Cholesterol 144.54 mg/dL (100-129)
[2020-12-03 09:44] LABS: Thyroid Stimulating Hormone 2.86 uIU/mL (0.465-4.68)
[2020-12-03 09:48] LABS: Chol/HDL Ratio 9.6 (1-3.5); Cholesterol 354 mg/dl (140-200); Triglycerides 788 mg/dl (30-150)
== END ==
PROVIDERS: Visit Provider Family Medicine
DX: E11.9 Type 2 diabetes mellitus without complications (principal); E78.5 Hyperlipidemia, unspecified; F41.9 Anxiety disorder, unspecified; Z79.4 Long term (current) use of insulin
CPT/HCPCS: 36415; 80053; 80061; 83036; 84443

== ENCOUNTER 2021-01-04 00:48 | Emergency (ER) | payer BC, SELFPAY ==
[2021-01-04 00:49] VITALS: BP 133/94; PULSE 138; RESP 20; TEMP 36.5; O2SAT 96; BMI 31.1
[2021-01-04 01:02] LABS: POC Glucose,Bedside 424 (70-110)
[2021-01-04 01:16] LABS: Microscopic, Urine URINE MICROSCOPIC (MICROSCOPIC)
[2021-01-04 01:18] LABS: Appearance,Urine CLEAR (Clear); Bilirubin,Urine Negative (Negative); Blood, Urine Negative (Negative); Color,Urine YELLOW (Yellow); Glucose,Urine (UA) 3+ (Negative); Ketones,Urine Negative (Negative); Leukocyte Esterase,Urine Negative (Negative); Nitrate,Urine Negative (Negative); Protein,Urine Negative (Negative); Urobilinogen,Urine 0.2 EU/dl (0.2)
[2021-01-04 01:24] LABS: Basophils # 0.2 K/mm3 (0-0.2); Basophils % 2.3 % (0.1-2.0); Eosinophils # 0.1 K/mm3 (0.0-0.4); Eosinophils % 1.3 % (0.1-12.0); Hematocrit 47.2 % (37.0-47.0); Hemoglobin 15.1 g/dL (12.2-16.2); Lymphocytes # 4.4 K/mm3 (0.7-4.5); Lymphocytes % 41.8 % (10-50); Mean Corpuscular Hemoglobin 32.1 pg (27.0-31.2); Mean Corpuscular Volume 100.3 fl (81-99); Mean Platelet Volume 9.3 fl (7.4-10.4); Monocytes # 1.1 K/mm3 (0.1-1.0); Monocytes % 10.8 % (1.7-9.3); Neutrophils # 4.6 K/mm3 (1.8-7.8); Neutrophils % 43.9 % (37.0-80.0); Platelet Count 591 K/mm3 (142-424); Red Blood Count 4.71 M/mm3 (4.20-5.40); Red Cell Distribution Width 14.8 % (11.5-17.5); White Blood Count 10.6 K/mm3 (4.8-10.8)
--- NOTE | 2021-01-04 01:30 | HMH.EDGENADL ---
ED Disposition Clinical Impression: Hyperglycemia due to type 2 diabetes mellitus Qualifiers: Diabetes mellitus mcfp insulin use: unspecified mcfp insulin use status Qualified Code(s): E11.65 - Type 2 diabetes mellitus with hyperglycemia Disposition: Home, Self-Care Condition on Discharge: Good Instructions: DI for Hyperglycemia -- Adult Additional Instructions: call pcp this am for follow up Referrals: Clyde Almodovar MD [Primary Care Provider] - - Critical Care Critical Care Time: No Attestation: On 01/04/21, the high probability of a clinically significant, sudden or life threatening deterioration of the following system(s) required my full and direct attention, intervention and personal management. The time I documented below is in addition to time spent performing reported procedures but includes the following listed in this critical care notation. Medical Decision Making - Medical Records Medical records reviewed: Yes: I reviewed the patient's medical records. - Solo Inquiry Pt receiving controlled substance: No Vital Signs: 01/04/21 00:49 01/04/21 02:01 Temperature 97.7 F Temperature Source Oral Pulse Rate 89 Pulse Rate [Right] 138 H Respiratory Rate 20 Blood Pressure 132/67 Blood Pressure [Right Arm] 133/94 H Blood Pressure Mean [Right Arm] 107 Blood Pressure Source [Right Arm] Automatic Cuff 02 Sat by Pulse Oximetry 96 97 Oxygen Delivery Method Room Air Room Air - Lab Data Lab results reviewed: Yes: I reviewed the patient's lab results. Lab Results 01/04/21 00:50: Urine Color Yellow, Urine Appearance Clear, Urine pH 7.0, Ur Specific [place] 1.010, Urine Protein Negative, Urine Glucose (UA) 3+, Urine Ketones Negative, Urine Blood Negative, Urine Nitrate Negative, Urine Bilirubin Negative, Urine Urobilinogen 0.2, Ur Leukocyte Esterase Negative, Urine WBC 3-5, Ur Squamous Epith Cells 10-20, Urine Bacteria 1+ 01/04/21 00:52: POC Glucose 424 H* 01/04/21 01:13: WBC 10.6, RBC 4.71, Hgb 15.1, Hct 47.2 H, MCV 100.3 H, MCH 32.1 H, MCHC 32.0, RDW 14.8, Plt Count 591 H, MPV 9.3, Neut % (Auto) 43.9, Lymph % (Auto) 41.8, [place] % (Auto) 10.8 H, Eos % (Auto) 1.3, Baso % (Auto) 2.3 H, Neut # (Auto) 4.6, Lymph # (Auto) 4.4, Cherry # (Auto) 1.1 H, Eos # (Auto) 0.1, Baso # (Auto) 0.2, ESR 6 01/04/21 01:13: Sodium 137, Potassium 4.6, Chloride 98, Carbon Dioxide 27, Anion Gap 16.6 H, BUN 7, Creatinine 0.60, Estimated Creat Clear 171, Estimated GFR 110, Est GFR ( Amer) 133, Glucose 485 H*, Calcium 9.9, Total Bilirubin 0.5, AST 35, ALT 34, Alkaline Phosphatase 206 H, C-Reactive Protein 10.1 H, Total Protein 8.4 H, Albumin 4.2, Globulin 4.2 H, Albumin/Globulin Ratio 1.0 L, Procalcitonin 0.086, Acetone Level None detected 01/04/21 01:13: Serum HCG, Qual Negative 01/04/21 02:27: SARS-CoV-2 (PCR) Not detected, Influenza A Untype (PCR) Not detected, Influenza Type B (PCR) Not detected Result diagrams: 01/04/21 01:13 01/04/21 01:13 Orders (Tests/Meds): ED MEDICATIONS Generic Name Dose Route Start Last Admin Trade Name Freq PRN Reason Stop Dose Admin Sodium Chloride 1,000 mls @ 999 mls/hr 01/04/21 01:15 01/04/21 01:21 Sod Chlor 0.9% 1000ml Bag IV 01/04/21 02:15 999 mls/hr .Q1H1M AURELIA Administration Sodium Chloride 1,000 mls @ 999 mls/hr 01/04/21 02:00 01/04/21 02:05 Sod Chlor 0.9% 1000ml Bag IV 01/04/21 03:00 999 mls/hr .Q1H1M AURELIA Administration Discontinued Medications Generic Name Dose Route Start Last Admin Trade Name Freq PRN Reason Stop Dose Admin Insulin Human Regular 5 unit 01/04/21 01:12 01/04/21 01:21 Insulin Human Regular 100 Units/Ml 10ml Vial IVP 01/04/21 01:13 5 unit ONCE ONE Administration Ondansetron HCl 4 mg 01/04/21 01:12 01/04/21 01:21 Ondansetron 4mg/2ml Vial IV 01/04/21 01:13 4 mg ONCE ONE Administration Medical Decision Narrative: pt with possible viral syndrome and has stable exam and labs - will hydrate
[2021-01-04 01:32] LABS: Bacteria,Urine 1+ /lpf
[2021-01-04 01:34] LABS: Chloride 98 mmol/L (98-107)
[2021-01-04 01:35] LABS: Potassium 4.6 mmoL/L (3.5-5.1); Sodium 137 mmol/L (136-145)
[2021-01-04 01:37] LABS: Alanine Aminotransferase 34 U/L (12-78); Aspartate Amino Transferase 35 U/L (14-36); Blood Urea Nitrogen 7 mg/dl (7-17); Creatinine Clearance Estimated 171 mL/min (50-200); Estimated Glomerular Filt Rate 110 ml/min (>60); GFR (African American) 133 ML/MIN (>60)
[2021-01-04 01:38] LABS: Albumin Level 4.2 g/dl (3.5-5.0); Alkaline Phosphatase 206 U/L (38-126); Anion Gap 16.6 mEq/L (5-15); Bilirubin,Total 0.5 mg/dl (0.2-1.3); Calcium 9.9 mg/dl (8.4-10.2); Carbon Dioxide 27 mmol/L (22.0-30.0); Globulin 4.2 g/dL (1.3-3.2); Total Protein,Serum 8.4 g/dl (6.3-8.2)
[2021-01-04 01:41] LABS: Acetone, Serum (Rapid) None Detected (None Detect); Glucose 485 mg/dl (74-100)
[2021-01-04 01:42] LABS: HCG Qualitative, Serum Negative (Negative)
[2021-01-04 01:55] LABS: C-Reactive Protein 10.1 mg/L (0-4)
[2021-01-04 01:56] LABS: Erythrocyte Sedimentation Rate 6 mm/hr (0-20)
[2021-01-04 01:59] LABS: Procalcitonin 0.086 ng/mL (0.0-2.0)
[2021-01-04 02:01] VITALS: BP 132/67; PULSE 89; O2SAT 97
[2021-01-04 02:33] LABS: Coronavirus 19, PCR Not Detected (NotDetected); Influenza A, PCR Not Detected (NotDetected); Influenza B, PCR Not Detected (NotDetected)
[2021-01-04 03:15] VITALS: BP 130/82; PULSE 92; RESP 17; TEMP 36.8; O2SAT 96
--- NOTE | 2021-01-04 03:24 | PC.NURSE ---
recheck FS was 331
[2021-01-04 03:30] LABS: POC Glucose,Bedside 331 (70-110)
== END 2021-01-04 04:08 | disposition home or self-care (01) ==
PROVIDERS: Emergency Provider Emergency Medicine; PCP Family Medicine
DX: E11.65 Type 2 diabetes mellitus with hyperglycemia (principal); E78.5 Hyperlipidemia, unspecified; K21.9 Gastro-esophageal reflux disease without esophagitis; Z79.899 Other long term (current) drug therapy
CPT/HCPCS: 80053; 81001; 82009; 82962; 84145; 84703; 85025; 85651; 86140; 96365; 96375; 99283; J2405; U0003

== ENCOUNTER 2021-01-05 14:46 | Outpatient (CLI) | payer BC, SELFPAY ==
[2021-01-05 14:51] VITALS: BMI 31.1
[2021-01-05 14:57] VITALS: BP 134/88; PULSE 96; RESP 18; TEMP 36.7; O2SAT 98
[2021-01-05 15:11] LABS: Basophils # 0.2 K/mm3 (0-0.2); Basophils % 1.6 % (0.1-2.0); Eosinophils # 0.1 K/mm3 (0.0-0.4); Eosinophils % 1.3 % (0.1-12.0); Hematocrit 48.6 % (37.0-47.0); Hemoglobin 15.4 g/dL (12.2-16.2); Lymphocytes # 3.5 K/mm3 (0.7-4.5); Lymphocytes % 36.6 % (10-50); Mean Corpuscular HGB Conc 31.6 g/dL (31.8-35.4); Mean Corpuscular Hemoglobin 31.7 pg (27.0-31.2); Mean Corpuscular Volume 100.3 fl (81-99); Mean Platelet Volume 8.8 fl (7.4-10.4); Monocytes # 0.9 K/mm3 (0.1-1.0); Monocytes % 9.8 % (1.7-9.3); Neutrophils # 4.9 K/mm3 (1.8-7.8); Neutrophils % 50.8 % (37.0-80.0); Platelet Count 569 K/mm3 (142-424); Red Blood Count 4.85 M/mm3 (4.20-5.40); Red Cell Distribution Width 14.5 % (11.5-17.5); White Blood Count 9.6 K/mm3 (4.8-10.8)
[2021-01-05 15:17] LABS: Chloride 99 mmol/L (98-107); Potassium 4.2 mmoL/L (3.5-5.1); Sodium 137 mmol/L (136-145)
[2021-01-05 15:19] LABS: Alanine Aminotransferase 27 U/L (12-78); Aspartate Amino Transferase 26 U/L (14-36); Blood Urea Nitrogen 6 mg/dl (7-17); Creatinine Clearance Estimated 205 mL/min (50-200); Estimated Glomerular Filt Rate 136 ml/min (>60); GFR (African American) 165 ML/MIN (>60)
[2021-01-05 15:20] LABS: Albumin Level 4.3 g/dl (3.5-5.0); Albumin/Globulin Ratio 1.1 (1.1-1.8); Alkaline Phosphatase 166 U/L (38-126); Anion Gap 13.2 mEq/L (5-15); Bilirubin,Total 0.3 mg/dl (0.2-1.3); Calcium 9.6 mg/dl (8.4-10.2); Carbon Dioxide 29 mmol/L (22.0-30.0); Glucose 326 mg/dl (74-100); Total Protein,Serum 8.3 g/dl (6.3-8.2)
[2021-01-05 16:03] VITALS: BP 129/87; PULSE 89; RESP 17; O2SAT 98
== END 2021-01-05 16:05 | disposition home or self-care (01) ==
LOC: INF 14:47
PROVIDERS: PCP Family Medicine; Visit Provider Physician Assistant
DX: E86.0 Dehydration (principal)
CPT/HCPCS: 80053; 85025; 96360

== ENCOUNTER 2021-02-10 10:21 | Emergency (ER) | payer BC, SELFPAY ==
[2021-02-10 10:53] VITALS: BP 128/91; PULSE 109; RESP 16; TEMP 36.8; O2SAT 96; BMI 30.3
--- NOTE | 2021-02-10 10:57 | HMH.EDUTC ---
[facility] [place] Disposition Clinical Impression: Tendinopathy of right shoulder Right shoulder pain Qualifiers: Chronicity: acute Qualified Code(s): M25.511 - Pain in right shoulder Disposition: Home, Self-Care Condition on Discharge: Good Instructions: Shoulder Tendinopathy, DI for Shoulder Pain Additional Instructions: Rest the extremity, Try to rest your shoulder from any activities that might be irritating it. Take the naproxen that we prescribed for pain. I sent in a prescription to your pharmacy. Take it regularly for the next 5 days to try to reduce the inflammation in your shoulder. Follow up with Dr. Mcarthur (orthopedics). I put in a referral but you need to call his office and schedule an appointment. Follow up with your regular doctor. GO TO THE ER FOR ANY WORSENING SYMPTOMS The muscle relaxer (cyclobenzaprine--Flexeril) will make you drowsy, so don't drive or operate heavy machinery after taking it. The muscle relaxer may not help much with your shoulder pain, but it might help you get comfortable enough to sleep at night until your shoulder starts to get better. Prescriptions: Cyclobenzaprine HCl [Cyclobenzaprine 10mg Tab] 10 mg PO BIDP PRN #20 tab PRN Reason: Muscle Spasm Transmission Status: Received by [id number] Naproxen [Naproxen 500mg tab] 500 mg PO BIDP PRN #30 tab PRN Reason: Moderate Pain Transmission Status: Received by [id number] Referrals: Clyde Almodovar MD [Primary Care Provider] - Junior Mcarthur MD [Staff Physician] - Time of Disposition: 11:59 Medical Decision Making - Medical Records Medical records reviewed: No: I reviewed the patient's medical records. - Solo Inquiry Pt receiving controlled substance: No Vital Signs: 02/10/21 10:53 02/10/21 11:40 Temperature 98.2 F 98.4 F Temperature Source Oral Pulse Rate 106 H Pulse Rate [Left] 109 H Respiratory Rate 16 16 Blood Pressure 128/91 H Blood Pressure [Right Arm] 128/91 H Blood Pressure Mean [Right Arm] 103 02 Sat by Pulse Oximetry 96 - Radiology Data #1 Image(s): Shoulder Image Reviewed: Yes I reviewed the patient's radiology image, Yes I have reviewed radiologist's interpretation Preliminary Findings: Normal/NAD, No Fracture Seen PROCEDURE: XR SHOULDER RT MIN 2V CLINICAL INDICATION: pain COMPARISON: No exams were available for comparison FINDINGS: No fracture or dislocation. No lytic or blastic change. There is normal mineralization. The joint spaces are well-preserved. No significant degenerative/arthritic changes. No erosive changes evident. Other findings:None. IMPRESSION: No acute findings. Dictated by: Cristian Marquez MD 02/10/2021 11:35 Cristian Marquez MD in OV 02/10/2021 11:35 [facility] [place] HPI - General Stated complaint: right shoulder pain Time Seen by Provider: 02/10/21 10:57 - History of Present Illness Provider Complaint: She states that for around the past 2 weeks she has been having right shoulder pain and discomfort. Moving her shoulder makes the pain worse. She denies any known injury. Before her pain started this time, she denies having episodes of shoulder pain. - Related Data Home Medications Medication Instructions Recorded Confirmed Atorvastatin Calcium [Lipitor 40mg 40 mg PO HS 01/22/20 01/05/21 Tab] Rizatriptan Benzoate [Maxalt] 10 mg PO DAILYP PRN 01/22/20 01/05/21 Triamterene/Hydrochlorothiazid 1 each PO DAILYP PRN 01/22/20 01/05/21 [Triamterene-Hctz 37.5-25 mg Tb] clonazePAM [Clonazepam] 0.5 mg PO BID 01/22/20 01/05/21 Fluconazole [Diflucan 150mg tab] 150 mg PO WESA 10/01/20 01/05/21 Insulin Degludec [Tresiba 48 units SQ DAILY 10/01/20 01/05/21 Flextouch U-100] Oxycodone HCl/Acetaminophen 5 mg PO Q4HP PRN 10/01/20 01/05/21 [Oxycodone-Acetaminophen 5-325] hydrOXYzine HCL [Hydroxyzine HCl] 50 mg PO HS 10/01/20 01/05/21 Clobetasol Propionate 1 applicatio TP DAILY 10/02/20
[2021-02-10 11:40] VITALS: BP 128/91; PULSE 106; RESP 16; TEMP 36.9
== END 2021-02-10 12:14 | disposition home or self-care (01) ==
PROVIDERS: Emergency Provider Nurse Practitioner Family; PCP Family Medicine
DX: M67.911 Unspecified disorder of synovium and tendon, right shoulder (principal); M25.511 Pain in right shoulder; E11.9 Type 2 diabetes mellitus without complications; K21.9 Gastro-esophageal reflux disease without esophagitis; E78.5 Hyperlipidemia, unspecified; Z79.899 Other long term (current) drug therapy
CPT/HCPCS: 73030; 99202; G0463

== ENCOUNTER 2021-02-20 09:05 | Emergency (ER) | payer BC, SELFPAY ==
[2021-02-20 09:24] VITALS: BP 141/92; PULSE 102; RESP 20; TEMP 37; O2SAT 97; BMI 30.7
--- NOTE | 2021-02-20 09:34 | HMH.EDUTC ---
[facility] [place] Disposition Clinical Impression: Pharyngitis Qualifiers: Pharyngitis/tonsillitis etiology: unspecified etiology Qualified Code(s): J02.9 - Acute pharyngitis, unspecified Disposition: Home, Self-Care Condition on Discharge: Good Instructions: Sore Throat, DI for Pharyngitis/Tonsillopharyngitis -- Adult Additional Instructions: Drink plenty of fluids. Take tylenol or ibuprofen for pain or fever. Take the medications as directed. Follow up with your regular doctor. GO TO THE ER FOR ANY WORSENING SYMPTOMS Prescriptions: Brompheniramine/Pseudoephed/Dm [Bromfed Dm Cough Syrup] 5 ml PO Q6HP PRN #240 ml PRN Reason: Cough Transmission Status: Received by [id number] Azithromycin [Z-Poncho 250mg Tab*] 250 mg PO UD DOSE PK #6 tab Transmission Status: Received by [id number] Referrals: Clyde Almodovar MD [Primary Care Provider] - Time of Disposition: 09:38 Medical Decision Making - Medical Records Medical records reviewed: No: I reviewed the patient's medical records. - Solo Inquiry Pt receiving controlled substance: No Vital Signs: 02/20/21 09:24 10 09:43 Temperature 98.6 F 98.6 F Temperature Source Oral Pulse Rate 102 H Pulse Rate [Right Brachial] 102 H Respiratory Rate 20 20 Blood Pressure 141/92 H Blood Pressure [Right Arm] 141/92 H Blood Pressure Mean [Right Arm] 108 Blood Pressure Source [Right Arm] Automatic Cuff Blood Pressure Position [Right Arm] Sitting 02 Sat by Pulse Oximetry 97 Oxygen Delivery Method Room Air - Lab Data Lab results reviewed: Yes: I reviewed the patient's lab results. Lab Results 02/20/21 09:22: Strep Scn Rapid Clinic Negative Orders (Tests/Meds): ORDERS Category Date Time Status Strep Screen Confirmation Routine Micro 02/20/21 09:22 Received [facility] [place] HPI - General Stated complaint: H/A, sore throat Time Seen by Provider: 02/20/21 09:34 Mode of Arrival: Ambulatory Source of Information: Patient Limitations: No Limitations Description of Symptoms (Recalled from Triage Doc. by RN): sore throat. headache HEENT Symptoms (Recalled from RN notes): Yes Resp Symptoms (Recalled from RN notes): Yes Skin Symptoms (Recalled from RN notes): No MS Symptoms (Recalled from RN notes): No Functional Status (Recalled from RN notes): yes - History of Present Illness Provider Complaint: She c/o sore throat for the past 2 days. She denies significant congestion or cough. She also has nausea and a poor appetite. She denies fever/chills/diarrhea. - Related Data Home Medications Medication Instructions Recorded Confirmed Atorvastatin Calcium [Lipitor 40mg 40 mg PO HS 01/22/20 01/05/21 Tab] Rizatriptan Benzoate [Maxalt] 10 mg PO DAILYP PRN 01/22/20 01/05/21 Triamterene/Hydrochlorothiazid 1 each PO DAILYP PRN 01/22/20 01/05/21 [Triamterene-Hctz 37.5-25 mg Tb] clonazePAM [Clonazepam] 0.5 mg PO BID 01/22/20 01/05/21 Fluconazole [Diflucan 150mg tab] 150 mg PO WESA 10/01/20 01/05/21 Insulin Degludec [Tresiba 48 units SQ DAILY 10/01/20 01/05/21 Flextouch U-100] hydrOXYzine HCL [Hydroxyzine HCl] 50 mg PO HS 10/01/20 01/05/21 Clobetasol Propionate 1 applicatio TP DAILY 10/02/20 01/05/21 Clotrimazole/Betamethasone Dip 1 applicatio TP BID 10/02/20 01/05/21 [Lotrisone cream 15gm tube] bisoproloL fumarate [Bisoprolol 10 mg PO DAILY 10/02/20 01/05/21 10mg Tablet] Fluconazole [Diflucan 200mg tablet] 200 mg PO DAILY 10/16/20 01/05/21 Insulin Regular, Human [Humulin R] 1 units SUBCONJ ACHS 10/16/20 01/05/21 Clomipramine HCl 75 mg PO BID 10/17/20 01/05/21 Potassium Chloride [Micro-K 10mEq 10 meq PO DAILY 01/05/21 01/05/21 cap] Previous Rx's Medication Instructions Recorded Tramadol HCl [Tramadol 50mg 50 mg PO Q6HP PRN #24 tab 10/19/20 Tab] Cyclobenzaprine HCl 10 mg PO BIDP PRN #20 tab 02/10/21 [Cyclobenzaprine 10mg Tab] Naproxen [Naproxen 500mg tab] 500 mg PO BIDP PRN #30 tab 10
[2021-02-20 09:43] VITALS: BP 141/92; PULSE 102; RESP 20; TEMP 37
[2021-02-20 09:44] LABS: UTC Strep Screen (Rapid) Negative (Negative)
== END 2021-02-20 09:43 | disposition home or self-care (01) ==
PROVIDERS: Emergency Provider Nurse Practitioner Family; PCP Family Medicine
DX: J02.9 Acute pharyngitis, unspecified (principal); R51.9 Headache, unspecified; E11.9 Type 2 diabetes mellitus without complications; K21.9 Gastro-esophageal reflux disease without esophagitis; E78.5 Hyperlipidemia, unspecified
CPT/HCPCS: 87880; 99202; G0463

== ENCOUNTER 2021-04-02 11:10 | Emergency (ER) | payer BC, SELFPAY ==
[2021-04-02 11:34] VITALS: BP 125/86; PULSE 101; RESP 19; TEMP 36.7; O2SAT 95; BMI 29.8
[2021-04-02 11:46] VITALS: BP 141/96; PULSE 83; RESP 18; TEMP 36.9
[2021-04-02 11:46] LABS: UTC Strep Screen (Rapid) Positive (Negative)
--- NOTE | 2021-04-02 12:06 | HMH.EDUTC ---
[facility] [place] Disposition Clinical Impression: Strep throat Disposition: Home, Self-Care Condition on Discharge: Good Instructions: DI for Strep Throat, Strep Throat Additional Instructions: Drink plenty of fluids. Take tylenol or ibuprofen for pain or fever. Take the medications as directed. Follow up with your regular doctor. GO TO THE ER FOR ANY WORSENING SYMPTOMS Throw your tooth brush away and get a new one. Prescriptions: Brompheniramine/Pseudoephed/Dm [Bromfed Dm Cough Syrup] 5 ml PO Q6HP PRN #240 ml PRN Reason: Cough Transmission Status: Received by [id number] Amoxicillin/Potassium Clav [Augmentin 500mg tab] 500 mg PO TID #30 tab Transmission Status: Received by [id number] Referrals: Clyde Almodovar MD [Primary Care Provider] - Time of Disposition: 12:31 Medical Decision Making - Medical Records Medical records reviewed: No: I reviewed the patient's medical records. - Solo Inquiry Pt receiving controlled substance: No Vital Signs: 04/02/21 11:34 04/02/21 11:46 Temperature 98.1 F 98.5 F Temperature Source Oral Pulse Rate 83 Pulse Rate [Left] 101 H Respiratory Rate 19 18 Blood Pressure 141/96 H Blood Pressure [Right Arm] 125/86 Blood Pressure Mean [Right Arm] 99 02 Sat by Pulse Oximetry 95 - Lab Data Lab results reviewed: Yes: I reviewed the patient's lab results. Lab Results 04/02/21 11:34: Strep Scn Rapid Clinic Positive A [facility] [place] HPI - General Stated complaint: sore throat, coughm body aches, SANTOYO Time Seen by Provider: 04/02/21 12:06 Mode of Arrival: Ambulatory Source of Information: Patient Limitations: No Limitations Description of Symptoms (Recalled from Triage Doc. by RN): pt c/o SANTOYO, sore throat, nasal drainage and congestion. ongoing since yesterday. HEENT Symptoms (Recalled from RN notes): Yes (SANTOYO, sore throat, nasal drainage and congestion) Resp Symptoms (Recalled from RN notes): No Skin Symptoms (Recalled from RN notes): No MS Symptoms (Recalled from RN notes): No Functional Status (Recalled from RN notes): wnl - History of Present Illness Provider Complaint: She c/o sore throat and a dry cough for the past 2 days. She has a had a low grade fever also. She has been around children that had strep throat recently. - Related Data Home Medications Medication Instructions Recorded Confirmed Atorvastatin Calcium [Lipitor 40mg 40 mg PO HS 01/22/20 01/05/21 Tab] Rizatriptan Benzoate [Maxalt] 10 mg PO DAILYP PRN 01/22/20 01/05/21 Triamterene/Hydrochlorothiazid 1 each PO DAILYP PRN 01/22/20 01/05/21 [Triamterene-Hctz 37.5-25 mg Tb] clonazePAM [Clonazepam] 0.5 mg PO BID 01/22/20 01/05/21 Fluconazole [Diflucan 150mg tab] 150 mg PO WESA 10/01/20 01/05/21 Insulin Degludec [Tresiba 48 units SQ DAILY 10/01/20 01/05/21 Flextouch U-100] hydrOXYzine HCL [Hydroxyzine HCl] 50 mg PO HS 10/01/20 01/05/21 Clobetasol Propionate 1 applicatio TP DAILY 10/02/20 01/05/21 Clotrimazole/Betamethasone Dip 1 applicatio TP BID 10/02/20 01/05/21 [Lotrisone cream 15gm tube] bisoproloL fumarate [Bisoprolol 10 mg PO DAILY 10/02/20 01/05/21 10mg Tablet] Fluconazole [Diflucan 200mg tablet] 200 mg PO DAILY 10/16/20 01/05/21 Insulin Regular, Human [Humulin R] [facility] 10/16/[facility] 01/05/21 Clomipramine HCl 75 mg PO BID 10/17/20 01/05/21 Potassium Chloride [Micro-K 10mEq 10 meq PO DAILY 01/05/21 01/05/21 cap] Previous Rx's Medication Instructions Recorded Tramadol HCl [Tramadol 50mg 50 mg PO Q6HP PRN #24 tab 10/19/20 Tab] Cyclobenzaprine HCl 10 mg PO BIDP PRN #20 tab 02/10/21 [Cyclobenzaprine 10mg Tab] Naproxen [Naproxen 500mg tab] 500 mg PO BIDP PRN #30 tab 02/10/21 Azithromycin [Z-Poncho 250mg Tab*] 250 mg PO UD DOSE PK #6 tab 02/20/21 Brompheniramine/Pseudoephed/Dm 5 ml PO Q6HP PRN #240 ml 02/20/21 [Bromfed Dm Cough Syrup] Amoxicillin/Potassium Clav 500 mg PO TID #30 tab 04/02/21 [Augmentin 500m
== END 2021-04-02 12:42 | disposition home or self-care (01) ==
PROVIDERS: Emergency Provider Nurse Practitioner Family; PCP Family Medicine
DX: J02.0 Streptococcal pharyngitis (principal); K21.9 Gastro-esophageal reflux disease without esophagitis; E78.5 Hyperlipidemia, unspecified; E11.9 Type 2 diabetes mellitus without complications; Z79.899 Other long term (current) drug therapy
CPT/HCPCS: 87880; 99202; G0463

== ENCOUNTER → 2021-05-17 10:40 | Outpatient (CLI) | payer BC, SELFPAY | PROVIDERS: Visit Provider Nurse Practitioner | DX: Z20.822 Contact with and (suspected) exposure to COVID-19 (principal) | CPT/HCPCS: C9803; U0003; U0005 ==

== ENCOUNTER 2021-06-01 09:16 | Emergency (ER) | payer BC, SELFPAY ==
[2021-06-01 09:31] VITALS: BP 114/68; PULSE 96; RESP 18; TEMP 36.9; O2SAT 96; BMI 29.8
[2021-06-01 09:46] LABS: UTC Influenza A Antigen Negative (Negative)
[2021-06-01 09:47] LABS: UTC Influenza B Antigen Negative (Negative)
[2021-06-01 09:50] LABS: Strep Scrn Group A (Rapid) Negative (Negative)
--- NOTE | 2021-06-01 09:52 | HMH.EDUTC ---
[facility] – [place], [place] Disposition Clinical Impression: Viral syndrome, Exposure to COVID-19 virus Diabetes mellitus Qualifiers: Diabetes mellitus type: type 2 Diabetes mellitus longterm insulin use: unspecified longterm insulin use status Diabetes mellitus complication status: with other specified complication Qualified Code(s): E11.69 - Type 2 diabetes mellitus with other specified complication Disposition: Home, Self-Care Condition on Discharge: Good Instructions: DI for COVID-19 (Suspected or Confirmed ), Preventing the Spread of Coronavirus Discharge Instructions Additional Instructions: Drink plenty of fluids. Take tylenol or ibuprofen for pain or fever. Take the medications as directed. Follow up with your regular doctor. GO TO THE ER FOR ANY WORSENING SYMPTOMS Quarantine until you know the results of your covid-19 test. Notify your school or workplace of your results and follow their instructions regarding return to work/school. The cough medication (promethazine dm) will make you drowsy, so don't drive or operate heavy machinery after taking it. Watch your breathing and return for any concerns. Prescriptions: Promethazine/Dextromethorphan [Promethazine-Dm Syrup] 5 ml PO Q6HP PRN #240 ml PRN Reason: Cough Transmission Status: Pending to [id number] Ondansetron [Zofran 4mg ODT] 4 mg PO Q8HP PRN #20 tab PRN Reason: Nausea Transmission Status: Pending to [id number] guaiFENesin [Mucinex 600mg tablet] 1 - 2 tab PO BIDP PRN #30 tab PRN Reason: Congestion Transmission Status: Pending to [id number] Referrals: Clyde Almodovar MD [Primary Care Provider] - Time of Disposition: 10:02 Medical Decision Making - Medical Records Medical records reviewed: No: I reviewed the patient's medical records. - Solo Inquiry Pt receiving controlled substance: No Vital Signs: 06/01/21 09:31 Temperature 98.4 F Temperature Source Oral Pulse Rate [Left] 96 H Respiratory Rate 18 Blood Pressure [Right Arm] 114/68 Blood Pressure Mean [Right Arm] 83 02 Sat by Pulse Oximetry 96 - Lab Data Lab results reviewed: Yes: I reviewed the patient's lab results. Lab Results 06/01/21 09:30: Influenza Type A Ag Negative, Influenza Type B Ag Negative 06/01/21 09:30: Group A Strep Rapid Negative Orders (Tests/Meds): ORDERS Category Date Time Status Covid-19 Nasal PCR ([facility]) Routine Lab 06/01/21 09:30 Received Rapid Strep Scrn Group A [Strep Scrn Group A (Rapid)] Lab 06/01/21 09:30 Received Stat [facility] [place], [place] HPI - General Stated complaint: sore throat, fever, cough, body aches, SANTOYO Time Seen by Provider: 06/01/21 09:52 Mode of Arrival: Ambulatory Source of Information: Patient Limitations: No Limitations Description of Symptoms (Recalled from Triage Doc. by RN): pt c/o a SANTOYO, sore throat, cough myalgia and chest tightness with breathing. is positive for covid. HEENT Symptoms (Recalled from RN notes): Yes (SANTOYO and sore throat) Resp Symptoms (Recalled from RN notes): Yes (cough and chest tightness with breathing) Skin Symptoms (Recalled from RN notes): No MS Symptoms (Recalled from RN notes): No Functional Status (Recalled from RN notes): wnl - History of Present Illness Provider Complaint: She states that for the past 1 day, she has had chest congestion, chest tightness, body aches, fever, chills, scratchy throat, and nausea. Her was diagnosed with covid-19 yesterday. She has been fully vaccinated against covid-19. - Related Data Home Medications Medication Instructions Recorded Confirmed Atorvastatin Calcium [Lipitor 40mg 40 mg PO HS 01/22/20 01/05/21 Tab] Rizatriptan Benzoate [Maxalt] 10 mg PO DAILYP PRN 01/22/20 01/05/21 Triamterene/Hydrochlorothiazid 1 each PO DAILYP PRN 01/22/20 01/05/21 [Triamterene-Hctz 37.5-25 mg Tb] clonazePAM [Clonazepam] 0.5 mg PO BID 01/22/20 01/05/21 Fluconazole [Diflucan 150mg tab] 150 mg PO TRISH
[2021-06-01 10:08] VITALS: BP 114/68; PULSE 96; RESP 18; TEMP 36.9
== END 2021-06-01 10:08 | disposition home or self-care (01) ==
PROVIDERS: Emergency Provider Nurse Practitioner Family; PCP Family Medicine
DX: B34.9 Viral infection, unspecified (principal); E11.9 Type 2 diabetes mellitus without complications; U07.1 COVID-19
CPT/HCPCS: 87430; 87804; 99203; C9803; G0463; U0003; U0005

== ENCOUNTER 2021-07-30 14:10 | Emergency (ER) | payer BC, SELFPAY ==
[2021-07-30 14:15] VITALS: BP 131/80; PULSE 124; RESP 17; TEMP 36.8; O2SAT 99; BMI 28.2
[2021-07-30 14:41] LABS: Apearance,Urine Clear (Clear); Bilirubin,Urine Negative (Negative); Blood, Urine Negative (Negative); Color,Urine Yellow (Yellow); Glucose,Urine (UA) >=1000 (Negative); Ketones,Urine Negative (Negative); PH,Urine 5.5 (5.0-8.5); Protein,Urine Negative (Negative); UTC Leukocyte Esterase,Urine Negative (Negative); UTC Nitrate,Urine Negative (Negative); Urobilinogen,Urine 0.2 EU/dl (0.2)
[2021-07-30 14:42] LABS: UTC Influenza A Antigen Negative (Negative)
[2021-07-30 14:43] LABS: UTC Influenza B Antigen Negative (Negative)
--- NOTE | 2021-07-30 14:47 | HMH.EDUTC ---
[facility] [place] Disposition Clinical Impression: UTI (urinary tract infection) Qualifiers: Urinary tract infection type: acute cystitis Hematuria presence: without hematuria Qualified Code(s): N30.00 - Acute cystitis without hematuria Disposition: Home, Self-Care Condition on Discharge: Good Instructions: Urinary Tract Infection Additional Instructions: Increase fluids, water and not soda or tea. Can drink cranberry juice or cranberry extract. White front to back Wear cotton underwear Empty bladder after intercourse Start antibiotics immediately and make sure you take the full course although you may start to see improvement over the next 48 hours. You can eat yogurt or take probiotics to decrease diarrhea or yeast infection caused by the antibiotic Be sure to follow-up anytime for new or worsening symptoms in 48 hours for wound urine culture results be sure to let you PCP no recent urine for culture so they can request records and ensure that you have appropriate antibiotic if you are not getting better or getting worse. If symptoms worsen or do not improve return or be seen in the ER. Follow-up with primary care this week. Prescriptions: cephALEXin [Cephalexin 500mg Tab] 500 mg PO BID 7 Days #14 tab Transmission Status: Received by [id number] Referrals: Clyde Almodovar MD [Primary Care Provider] - Time of Disposition: 15:10 Medical Decision Making - Solo Inquiry Pt receiving controlled substance: No Vital Signs: 07/30/21 14:15 07/30/21 14:49 Temperature 98.3 F 98.3 F Temperature Source Oral Pulse Rate 124 H Pulse Rate [Right Brachial] 124 H Respiratory Rate 17 17 Blood Pressure 131/80 Blood Pressure [Right Arm] 131/80 Blood Pressure Mean [Right Arm] 97 Blood Pressure Source [Right Arm] Automatic Cuff Blood Pressure Position [Right Arm] Sitting 02 Sat by Pulse Oximetry 99 Oxygen Delivery Method Room Air - Lab Data Lab Results 07/30/21 14:16: Group A Strep Rapid Negative 07/30/21 14:23: Influenza Type A Ag Negative, Influenza Type B Ag Negative 07/30/21 14:23: Urine Color Yellow, Urine Appearance Clear, Urine pH 5.5, Ur Specific [place] 1.030, Urine Protein Negative, Urine Glucose (UA) >=1000, Urine Ketones Negative, Urine Blood Negative, Urine Nitrate Negative, Urine Bilirubin Negative, Urine Urobilinogen 0.2, Ur Leukocyte Esterase Negative Orders (Tests/Meds): ORDERS Category Date Time Status Strep Screen Confirmation Stat Micro 07/30/21 14:16 Received [facility] [place] HPI - General Chief complaint: Urgent Treatment [facility] Stated complaint: sore throat, possible UTI Time Seen by Provider: 07/30/21 14:49 Mode of Arrival: Ambulatory Source of Information: Patient Limitations: No Limitations Description of Symptoms (Recalled from Triage Doc. by RN): PATIENT C/O BURNING AND FREQUENCY WITH URINATION, VOMITING, CHILLS, BODY ACHES, SORE THROAT AND HEADACHES X 2 DAYS HEENT Symptoms (Recalled from RN notes): Yes Resp Symptoms (Recalled from RN notes): No Skin Symptoms (Recalled from RN notes): No MS Symptoms (Recalled from RN notes): No Functional Status (Recalled from RN notes): WNL - History of Present Illness Provider Complaint: 40 yr old female presnets for burning and freq in voiding, vomiting,chills,body aches,sore throat and SANTOYO for 2 days - Related Data Home Medications Medication Instructions Recorded Confirmed Atorvastatin Calcium [Lipitor 40mg 40 mg PO HS 01/22/20 01/05/21 Tab] Rizatriptan Benzoate [Maxalt] 10 mg PO DAILYP PRN 01/22/20 01/05/21 Triamterene/Hydrochlorothiazid 1 each PO DAILYP PRN 01/22/20 01/05/21 [Triamterene-Hctz 37.5-25 mg Tb] clonazePAM [Clonazepam] 0.5 mg PO BID 01/22/20 01/05/21 Fluconazole [Diflucan 150mg tab] 150 mg PO WESA 10/01/20 01/05/21 Insulin Degludec [Tresiba 48 units SQ DAILY 10/01/20 01/05/21 Flextouch U-100] hydrOXYzine HCL [Hydroxyzine HCl] 50 mg PO HS 10/01/20 01/05/21 Clobetasol Propionate 1 applicatio TP DAILY 0
[2021-07-30 14:49] VITALS: BP 131/80; PULSE 124; RESP 17; TEMP 36.8; O2SAT 99
[2021-07-30 15:08] LABS: Strep Scrn Group A (Rapid) Negative (Negative)
== END 2021-07-30 15:15 | disposition home or self-care (01) ==
PROVIDERS: Emergency Provider Nurse Practitioner Family; PCP Family Medicine
DX: N30.00 Acute cystitis without hematuria (principal); J02.9 Acute pharyngitis, unspecified; R51.9 Headache, unspecified; R11.10 Vomiting, unspecified; M79.10 Myalgia, unspecified site; E78.5 Hyperlipidemia, unspecified; K21.9 Gastro-esophageal reflux disease without esophagitis; E11.9 Type 2 diabetes mellitus without complications; E04.1 Nontoxic single thyroid nodule; Z79.1 Long term (current) use of non-steroidal anti-inflammatories (NSAID); Z79.4 Long term (current) use of insulin; Z79.51 Long term (current) use of inhaled steroids; Z79.899 Other long term (current) drug therapy; Z90.81 Acquired absence of spleen; Z85.830 Personal history of malignant neoplasm of bone
CPT/HCPCS: 81003; 87430; 87804; 99213; G0463

== ENCOUNTER 2022-01-16 09:51 | Emergency (ER) | payer BC, SELFPAY ==
[2022-01-16 10:02] VITALS: BP 115/81; PULSE 97; RESP 16; TEMP 36.8; O2SAT 98; BMI 31.9
--- NOTE | 2022-01-16 10:23 | EXP.UTC ---
Discharge Plan Disposition Patient Disposition: Home, Self-Care Condition: Good Prescriptions Prescriptions: New promethazine 25 mg tablet 25 mg PO TID PRN (Reason: nausea and vomiting) Qty: 6 0RF cefdinir 300 mg capsule 300 mg PO BID Qty: 20 0RF No Action insulin degludec 100 UNIT/ML insulin pen 48 units SQ DAILY bisoprolol fumarate 10 MG tablet 10 mg PO DAILY naproxen 500 MG tablet 500 mg PO BIDP PRN (Reason: Moderate Pain) Qty: 30 0RF atorvastatin 40 MG tablet 40 mg PO HS triamterene-hydrochlorothiazid 1 EACH tablet 1 each PO DAILYP PRN (Reason: SWELLING) insulin regular human 100 UNIT/ML solution 1 units SUBCONJ ACHS Label Comments: INJECT SUBCUTANEOUSLY DIRECTED PER SLIDING SCALE UP TO 80 UNITS DAILY Rx Instructions: Sliding scale insulin Trintellix 10 mg tablet 10 mg PO DAILY Label Comments: TAKE 1 TABLET BY MOUTH ONCE DAILY temazepam 15 mg capsule 15 mg PO HS Label Comments: TAKE 1 CAPSULE BY MOUTH ONCE DAILY AT BEDTIME fenofibrate 160 mg tablet 160 mg PO DAILY Label Comments: TAKE 1 TABLET BY MOUTH ONCE DAILY Ozempic 1 mg/dose (4 mg/3 mL) pen injector 1 mg SQ WEEKLY Label Comments: INJECT 1MG SUBCUTANEOUSLY ONCE A WEEK rizatriptan [Maxalt] 5 mg Tablet 5 mg PO NEEDED PRN (Reason: Headache) Referrals Follow up/Referrals: Clyde Almodovar MD [Primary Care Provider] - See instructions Activity Restrictions/Add. Instructions Additional Instructions/Restrictions: *Monitor Temp, Over the counter Motrin or Tylenol as directed/as needed Tylenol every 4 hours and Motrin every 6 hours (as long as your family doctor has told you that you can take it) for fever or pain. and straight to ER if unable to lower temp less than 101.0 after medication given *Warm salt water gargles may help to soothe the throat *Throat Lozenges? *Warm fluids like tea with honey may help to soothe the throat? *Sleep elevated *Humidifier/Vaporizer *If you did not take Penicillin shot or was unable to, start taking antibiotic immediately and make sure that you take it for the FULL length of time although you should start to feel better in 24-48 hours *change toothbrush and toothpaste 24-48 hours after starting to take antibiotics so you do not reinfect yourself Monitor Temp. Tylenol and/or Ibuprofen as needed. ER if fever is no less than 101 despite alternating Tylenol and Ibuprofen * Encourage fluids, water, Gatorade, powerade, pedialyte if infant/toddler/or child *Cold fluids, popsicles and ice cream may feel good on his throat Follow up IMMEDIATELY for new or worsening symptoms or no Noticeable improvement over the next 48-72 hours. 911 for difficulty breathing or swallowing Clinical Impressions Clinical Impression: URI (upper respiratory infection) Instructions Patient Instructions: Strep Throat, DI for Strep Throat [place]charge ED [place] [facility] [place] Stated complaint: sore throat,headache Mode of Arrival: Ambulatory Source of Information: Patient Limitations: No Limitations Time Seen by Provider: 01/16/22 10:24 Description of Symptoms (Recalled from Triage Doc. by RN): pt comes in with c/o sore throat that began yesterday. headache and nausea started 2 days ago. HEENT Symptoms (Recalled from RN notes): Yes Resp Symptoms (Recalled from RN notes): Yes Skin Symptoms (Recalled from RN notes): No MS Symptoms (Recalled from RN notes): No Functional Status (Recalled from RN notes): n/a History of Present Illness Provider Complaint: Patient states that she has been having a headache and nausea for the last couple of days then yesterday started having sore throat States that she feels like she may have strep throat Related Data Home Medications Medication Instructions Recorded Confirmed atorvastatin 40 mg tablet 40 mg PO HS Cholesterol 01/22/20 09
[2022-01-16 10:30] LABS: UTC Strep Screen (Rapid) Negative (Negative)
[2022-01-16 10:36] VITALS: BP 115/81; PULSE 97; RESP 16; TEMP 36.8
== END 2022-01-16 10:39 | disposition home or self-care (01) ==
PROVIDERS: Emergency Provider Nurse Practitioner; PCP Family Medicine
DX: J02.9 Acute pharyngitis, unspecified (principal); R51.9 Headache, unspecified; R11.0 Nausea
CPT/HCPCS: 87880; 99212; G0463

== ENCOUNTER 2022-01-17 03:31 | Emergency (ER) | payer BC, SELFPAY ==
[2022-01-17 03:32] VITALS: BP 135/72; PULSE 86; RESP 18; TEMP 36.6; O2SAT 99; BMI 31.9
--- NOTE | 2022-01-17 03:51 | HMH.EDANX ---
Discharge Plan Disposition Patient Disposition: Home, Self-Care Chief Complaint: Anxiety Prescriptions Prescriptions: No Action insulin degludec 100 UNIT/ML insulin pen 48 units SQ DAILY bisoprolol fumarate 10 MG tablet 10 mg PO DAILY naproxen 500 MG tablet 500 mg PO BIDP PRN (Reason: Moderate Pain) Qty: 30 0RF atorvastatin 40 MG tablet 40 mg PO HS triamterene-hydrochlorothiazid 1 EACH tablet 1 each PO DAILYP PRN (Reason: SWELLING) insulin regular human 100 UNIT/ML solution 1 units SUBCONJ ACHS Label Comments: INJECT SUBCUTANEOUSLY DIRECTED PER SLIDING SCALE UP TO 80 UNITS DAILY Rx Instructions: Sliding scale insulin Trintellix 10 mg tablet 10 mg PO DAILY Label Comments: TAKE 1 TABLET BY MOUTH ONCE DAILY temazepam 15 mg capsule 15 mg PO HS Label Comments: TAKE 1 CAPSULE BY MOUTH ONCE DAILY AT BEDTIME fenofibrate 160 mg tablet 160 mg PO DAILY Label Comments: TAKE 1 TABLET BY MOUTH ONCE DAILY Ozempic 1 mg/dose (4 mg/3 mL) pen injector 1 mg SQ WEEKLY Label Comments: INJECT 1MG SUBCUTANEOUSLY ONCE A WEEK rizatriptan [Maxalt] 5 mg Tablet 5 mg PO NEEDED PRN (Reason: Headache) promethazine 25 mg tablet 25 mg PO TID PRN (Reason: nausea and vomiting) Qty: 6 0RF cefdinir 300 mg capsule 300 mg PO BID Qty: 20 0RF Referrals Follow up/Referrals: Clyde Almodovar MD [Primary Care Provider] - See instructions Clinical Impressions Clinical Impression: Anxiety Instructions Patient Instructions: Anxiety Disorders Discharge ED Provider: Bulmaro Sanon Anxiety HPI General Chief Complaint: Anxiety Stated Complaint: Anxiety/nerves Time Seen by Provider: 01/17/22 03:51 Mode of Arrival: Family Vehicle Source of Information: Patient and Relative Limitations: No Limitations Description of Symptoms (Recalled from ER Triage Doc. by RN): Pt c/o increase of anxitey following the of her grad-daughter. Pt takes Trintellix daily and reports she needs something to help her anxitey . History of Present Illness HPI narrative: anxiety over loss of grandchild complaint: anxiety Onset (ago): hour(s) Severity: moderate History of similar episodes: No Provoking factors: recent /illness of family member Associated symptoms: denies other symptoms Related Data Home Medications Medication Instructions Recorded Confirmed atorvastatin 40 mg tablet 40 mg PO HS Cholesterol 01/22/20 01/16/22 triamterene 37.5 1 each PO DAILYP PRN SWELLING 01/22/20 01/16/22 mg-hydrochlorothiazide 25 mg tablet insulin degludec 100 unit/mL (3 48 units SQ DAILY Diabetes 10/01/20 01/16/22 mL) subcutaneous pen bisoprolol fumarate 10 mg tablet 10 mg PO DAILY High blood pressure 10/02/20 01/16/22 insulin regular human 100 unit/mL 1 units SUBCONJ ACHS Diabetes 10/16/20 01/16/22 injection solution fenofibrate 160 mg tablet 160 mg PO DAILY Cholesterol 01/16/22 01/16/22 rizatriptan 5 mg tablet 5 mg PO NEEDED PRN Headache 01/16/22 01/16/22 semaglutide 1 mg/dose (4 mg/3 mL) 1 mg SQ WEEKLY Diabetes 01/16/22 01/16/22 subcutaneous pen injector (Ozempic) temazepam 15 mg capsule 15 mg PO HS Insomnia 01/16/22 01/16/22 vortioxetine 10 mg tablet 10 mg PO DAILY Anxiety 01/16/22 01/16/22 (Trintellix) Previous Rx's Medication Instructions Recorded naproxen 500 mg tablet 500 mg PO BIDP PRN Moderate Pain 02/10/21 #30 tabs cefdinir 300 mg capsule 300 mg PO BID #20 caps 01/16/22 promethazine 25 mg tablet 25 mg PO TID PRN nausea and 01/16/22 vomiting #6 tabs Allergies Allergy/AdvReac Type Severity Reaction Status Date / Time No Known Allergies Allergy Verified 01/16/22 10:08 [facility] Medical History (Updated 01/17/22 @ 03:55 by Bulmaro Sanon MD) Generalized anxiety disorder Surgical History (Updated 01/11/22 @ 09:28 by Vicenta Morrissey APRN) History of appendectomy History of sp
[2022-01-17 04:05] VITALS: BP 140/73; PULSE 87; RESP 20; TEMP 36.6; O2SAT 98
== END 2022-01-17 04:16 | disposition home or self-care (01) ==
PROVIDERS: Emergency Provider Emergency Medicine; PCP Family Medicine
DX: F43.22 Adjustment disorder with anxiety (principal); Z90.49 Acquired absence of other specified parts of digestive tract; Z79.4 Long term (current) use of insulin; Z79.899 Other long term (current) drug therapy; Z83.3 Family history of diabetes mellitus; E11.9 Type 2 diabetes mellitus without complications
CPT/HCPCS: 96372; 99283

== ENCOUNTER 2022-02-11 12:27 | Emergency (ER) | payer BC, SELFPAY ==
[2022-02-11 13:50] VITALS: BP 147/80; PULSE 99; RESP 19; TEMP 36.7; O2SAT 98; BMI 34.0
[2022-02-11 14:13] LABS: UTC Influenza A Antigen Negative (Negative)
[2022-02-11 14:14] LABS: UTC Influenza B Antigen Negative (Negative)
--- NOTE | 2022-02-11 14:27 | EXP.UTC ---
Discharge Plan Disposition Patient Disposition: Home, Self-Care Condition: Good Prescriptions Prescriptions: New azithromycin [Zithromax Z-Poncho] 250 mg tablet See Rx Instructions .ROUTE .COMPLEX 5 Days Qty: 6 0RF Rx Instructions: For 250 mg dose pack: take 500 mg today (day 1), then 250 mg for 4 days (days 2-5) No Action diazepam [Valium] 5 mg tablet 5 mg PO BID PRN (Reason: anxiety) Qty: 60 0RF desvenlafaxine succinate [Pristiq] 50 mg tablet extended release 24 hr 50 mg PO DAILY Qty: 30 1RF insulin degludec 100 UNIT/ML insulin pen 48 units SQ DAILY bisoprolol fumarate 10 MG tablet 10 mg PO DAILY naproxen 500 MG tablet 500 mg PO BIDP PRN (Reason: Moderate Pain) Qty: 30 0RF atorvastatin 40 MG tablet 40 mg PO HS triamterene-hydrochlorothiazid 1 EACH tablet 1 each PO DAILYP PRN (Reason: SWELLING) insulin regular human 100 UNIT/ML solution 1 units SUBCONJ ACHS Label Comments: INJECT SUBCUTANEOUSLY DIRECTED PER SLIDING SCALE UP TO 80 UNITS DAILY Rx Instructions: Sliding scale insulin fenofibrate 160 mg tablet 160 mg PO DAILY Label Comments: TAKE 1 TABLET BY MOUTH ONCE DAILY Ozempic 1 mg/dose (4 mg/3 mL) pen injector 1 mg SQ WEEKLY Label Comments: INJECT 1MG SUBCUTANEOUSLY ONCE A WEEK rizatriptan [Maxalt] 5 mg Tablet 5 mg PO NEEDED PRN (Reason: Headache) promethazine 25 mg tablet 25 mg PO TID PRN (Reason: nausea and vomiting) Qty: 6 0RF cefdinir 300 mg capsule 300 mg PO BID Qty: 20 0RF Referrals Follow up/Referrals: Clyde Almodovar MD [Primary Care Provider] - See instructions Activity Restrictions/Add. Instructions Additional Instructions/Restrictions: *Monitor Temp, Over the counter Motrin or Tylenol as directed/as needed Tylenol every 4 hours and Motrin every 6 hours (as long as your family doctor has told you that you can take it) for fever or pain. and straight to ER if unable to lower temp less than 101.0 after medication given *Warm salt water gargles may help to soothe the throat *Throat Lozenges? *Warm fluids like tea with honey may help to soothe the throat? *Sleep elevated *Humidifier/Vaporizer Follow up IMMEDIATELY for new or worsening symptoms or no Noticeable improvement over the next 48-72 hours. 911 for difficulty breathing or swallowing You were tested for today for COVID19 your test result should be back in the next 24-48 hours, you may check your Results on the [facility] My Health Portal Clinical Impressions Clinical Impression: Bronchitis Sinusitis Qualifiers: Sinusitis location: unspecified location Chronicity: unspecified Qualified Code(s): J32.9 - Chronic sinusitis, unspecified Instructions Patient Instructions: Sinusitis, Acute Bronchitis, DI for Sinusitis Discharge ED Provider: Lana Reyna [facility] [place] General Stated complaint: cough, body aches, congestion Mode of Arrival: Ambulatory Source of Information: Patient Limitations: No Limitations Time Seen by Provider: 02/11/22 14:28 Description of Symptoms (Recalled from Triage Doc. by RN): PATIENT C/O COUGH, HURTS TO BREATH, BODY ACHES AND EAR PAIN X 1 WEEK HEENT Symptoms (Recalled from RN notes): No Resp Symptoms (Recalled from RN notes): Yes Skin Symptoms (Recalled from RN notes): No MS Symptoms (Recalled from RN notes): No Functional Status (Recalled from RN notes): WNL History of Present Illness Provider Complaint: Patient states that she hasnt felt well for about a week and she just got back from [place] State that she has been having cough, sinus congestion and pressure, body aches and chills States that today she was still not feeling any better so she came in to get checked States that she did recently have strep throat but has finished all the treatment Related Data Home Medications Medication Instructions Recorded Confirmed atorvastatin 40 mg tablet 40 mg PO H
[2022-02-11 14:49] VITALS: BP 147/80; PULSE 99; RESP 19; TEMP 36.7; O2SAT 98
[2022-02-11 14:55] LABS: Adenovirus,PCR Not Detected (NotDetected); Bordetella Pertussis Not Detected (NotDetected); Chlamydophila Pneumoniae, PCR Not Detected (NotDetected); Coronavirus 19, PCR Not Detected (NotDetected); Coronavirus 229E Not Detected (NotDetected); Coronavirus NL63 Not Detected (NotDetected); Coronavirus OC43 Not Detected (NotDetected); Coronovirus HKU1,PCR Not Detected (NotDetected); Human Metapneumovirus Not Detected (NotDetected); Influenza A, PCR Not Detected (NotDetected); Influenza AH1, 2009 Not Detected (NotDetected); Influenza AH1, PCR Not Detected (NotDetected); Influenza AH3,PCR Not Detected (NotDetected); Influenza B, PCR Not Detected (NotDetected); Mycoplasma Pneumoniae, PCR Not Detected (NotDetected); Parainfluenza 1, PCR Not Detected (NotDetected); Parainfluenza 2, PCR Not Detected (NotDetected); Parainfluenza 3, PCR Not Detected (NotDetected); Parainfluenza 4, PCR Not Detected (NotDetected); Respiratory Syncytial Virus Not Detected (NotDetected); Rhinovirus/Enterovirus Not Detected (NotDetected)
== END 2022-02-11 14:51 | disposition home or self-care (01) ==
PROVIDERS: Emergency Provider Nurse Practitioner; PCP Family Medicine
DX: J40 Bronchitis, not specified as acute or chronic (principal); J32.9 Chronic sinusitis, unspecified
CPT/HCPCS: 87581; 87632; 87798; 87804; 99212; C9803; G0463; U0003; U0005

== ENCOUNTER → 2022-03-28 08:46 | Outpatient (CLI) | payer BC, SELFPAY ==
[2022-03-28 10:02] LABS: Creatinine,Urine Random 232 mg/dL (Not Estab.)
[2022-03-28 10:06] LABS: Microalbumin/Creatinine Ratio 5.6
[2022-03-28 10:24] LABS: Chloride 105 mmol/L (98-107); Sodium 141 mmol/L (136-145)
[2022-03-28 10:25] LABS: Potassium 4.6 mmoL/L (3.5-5.1)
[2022-03-28 10:27] LABS: Anion Gap 15.6 mEq/L (5-15); Blood Urea Nitrogen 21 mg/dl (7-17); Carbon Dioxide 25 mmol/L (22.0-30.0); Estimated Glomerular Filt Rate 110 ml/min (>60); GFR (African American) 133 ML/MIN (>60)
[2022-03-28 10:28] LABS: Calcium 10.7 mg/dl (8.4-10.2); Chol/HDL Ratio 4.5 (1-3.5); Cholesterol 228 mg/dl (140-200); Glucose 157 mg/dl (74-100); HDL Cholesterol 51 mg/dl (40-60); Triglycerides 152 mg/dl (30-150); VLDL Cholesterol 30 mg/dL (0-40)
== END ==
PROVIDERS: PCP Family Medicine; Visit Provider Internal Medicine Endocrinology, Diabetes & Metabolism
DX: E11.65 Type 2 diabetes mellitus with hyperglycemia (principal); Z79.4 Long term (current) use of insulin
CPT/HCPCS: 36415; 80048; 80061; 82043; 82570

== ENCOUNTER 2022-05-28 08:07 | Emergency (ER) | payer BC, SELFPAY ==
--- NOTE | 2022-05-28 08:14 | EXP.UTC ---
Discharge Plan Disposition Patient Disposition: Home, Self-Care Condition: Good Prescriptions Prescriptions: New amoxicillin [amoxicillin] 500 mg tablet 500 mg PO TID 10 Days Qty: 30 0RF benzonatate [benzonatate] 100 mg capsule 100 mg PO TIDP PRN (Reason: Cough) Qty: 30 0RF methylprednisolone 4 mg Tablets,Dose Pack 4 mg PO DIRECTED Qty: 21 0RF No Action clonazepam [Klonopin] 0.5 mg tablet 0.5 mg PO .COMPLEX PRN (Reason: anxiety) Qty: 90 1RF Rx Instructions: 0.5 mg orally take 1 in the morning; and 1-2 at bedtime PRN; bisoprolol fumarate 10 MG tablet 10 mg PO DAILY atorvastatin 40 MG tablet 40 mg PO HS fenofibrate 160 mg tablet 160 mg PO DAILY Label Comments: TAKE 1 TABLET BY MOUTH ONCE DAILY Toujeo Max U-300 SoloStar 300 unit/mL (3 mL) insulin pen 62 unit SQ DAILY Mounjaro 5 mg/0.5 mL pen injector 1 mg SQ WEEKLY Label Comments: INJECT 1 SYRINGE SUBCUTANEOUSLY ONCE A WEEK desvenlafaxine succinate [Pristiq] 100 mg tablet extended release 24 hr 50 mg PO DAILY insulin lispro [Humalog KwikPen Insulin] 100 unit/mL insulin pen 20 unit SQ TID gabapentin 100 mg capsule 200 mg PO BID Label Comments: TAKE 2 CAPSULES BY MOUTH TWICE DAILY Referrals Follow up/Referrals: Clyde Almodovar MD [Primary Care Provider] - See instructions Activity Restrictions/Add. Instructions Additional Instructions/Restrictions: Drink plenty of fluids. Take tylenol or ibuprofen for pain or fever. Take the medications as directed. Follow up with your regular doctor. GO TO THE ER FOR ANY WORSENING SYMPTOMS Clinical Impressions Clinical Impression: Pharyngitis, Acute viral syndrome Stand Alone Forms Stand Alone Forms: Work/School Release Instructions Patient Instructions: DI for Pharyngitis/Tonsillopharyngitis -- Adult, DI for Viral Syndrome Discharge ED Provider: Riky Jonas [facility] [place] General Stated complaint: sore throat,headache Time Seen by Provider: 05/28/22 08:13 History of Present Illness Provider Complaint: She states that for the past 2 days she has had sore throat, chills, body aches, and a productive cough. Related Data Home Medications Medication Instructions Recorded Confirmed atorvastatin 40 mg tablet 40 mg PO HS Cholesterol 01/22/20 05/28/22 bisoprolol fumarate 10 mg tablet 10 mg PO DAILY High blood pressure 10/02/20 05/28/22 fenofibrate 160 mg tablet 160 mg PO DAILY Cholesterol 01/16/22 05/28/22 desvenlafaxine succinate 100 mg 50 mg PO DAILY . 05/28/22 05/28/22 tablet,extended release 24 hr (Pristiq) gabapentin 100 mg capsule 200 mg PO BID . 05/28/22 05/28/22 insulin glargine U-300 conc 300 62 unit SQ DAILY Diabetes 05/28/22 05/28/22 unit/mL (3 mL) subcutaneous pen (Toujeo Max U-300 SoloStar) insulin lispro 100 unit/mL 20 unit SQ TID Diabetes 05/28/22 05/28/22 subcutaneous pen (Humalog KwikPen (U-100) Insulin) tirzepatide 5 mg/0.5 mL 1 mg SQ WEEKLY . 05/28/22 05/28/22 subcutaneous pen injector (Ashley) Previous Rx's Medication Instructions Recorded clonazepam 0.5 mg tablet (Klonopin) 0.5 mg PO .COMPLEX PRN anxiety #90 04/19/22 tabs amoxicillin 500 mg tablet 500 mg PO TID 10 days #30 tabs 05/28/22 benzonatate 100 mg capsule 100 mg PO TIDP PRN Cough #30 caps 05/28/22 methylprednisolone 4 mg tablets in 4 mg PO DIRECTED #21 tabs 05/28/22 a dose pack Allergies Allergy/AdvReac Type Severity Reaction Status Date / Time No Known Allergies Allergy Verified 05/28/22 08:34 [facility] Disclaimer: The information contained in this section may have been updated after the patient was seen, as this information can be updated by other users. Medical History Anxiety Depression Diabetes mellitus, type 2 Generalized anxiety disorder Grief Hyperlipidemia Migraine Urinary tract infection Surgi
[2022-05-28 08:15] VITALS: BP 129/75; PULSE 89; RESP 20; TEMP 36.5; O2SAT 96; BMI 34.2
[2022-05-28 08:34] LABS: UTC Strep Screen (Rapid) Negative (Negative)
[2022-05-28 09:04] VITALS: BP 129/75; PULSE 89; RESP 20; TEMP 36.5; O2SAT 96
== END 2022-05-28 09:02 | disposition home or self-care (01) ==
PROVIDERS: Emergency Provider Nurse Practitioner Family; PCP Family Medicine
DX: J02.9 Acute pharyngitis, unspecified (principal); B34.9 Viral infection, unspecified
CPT/HCPCS: 87880; 99212; 99213; C9803; G0463; U0003; U0005

== ENCOUNTER 2022-08-16 07:59 | Emergency (ER) | payer BC, SELFPAY ==
[2022-08-16] VITALS (15 sets, daily range): BP systolic 117–150; BP diastolic 68–92; PULSE 79–109; RESP 15–20; TEMP 36.6–37.1; O2SAT 94–99; BMI 33.2
--- NOTE | 2022-08-16 08:19 | HMH.EDGENADL ---
Discharge Plan Disposition Patient Disposition: Home, Self-Care Condition: Fair Prescriptions Prescriptions: New promethazine 25 mg tablet 25 mg PO TID PRN (Reason: nausea and vomiting) Qty: 10 0RF No Action lorazepam [Ativan] 1 mg tablet 1 mg PO .COMPLEX PRN (Reason: anxiety) Qty: 45 1RF Rx Instructions: 1 mg orally take 1/2 tablet in the am and 1 tablet at bedtime PRN; desvenlafaxine succinate [Pristiq] 100 mg tablet extended release 24 hr 50 mg PO DAILY Qty: 90 0RF bisoprolol fumarate 10 MG tablet 10 mg PO DAILY atorvastatin 40 MG tablet 40 mg PO HS fenofibrate 160 mg tablet 160 mg PO DAILY Label Comments: TAKE 1 TABLET BY MOUTH ONCE DAILY Toujeo Max U-300 SoloStar 300 unit/mL (3 mL) insulin pen 62 unit SQ DAILY Mounjaro 5 mg/0.5 mL pen injector 1 mg SQ WEEKLY Label Comments: INJECT 1 SYRINGE SUBCUTANEOUSLY ONCE A WEEK insulin lispro [Humalog KwikPen Insulin] 100 unit/mL insulin pen 20 unit SQ TID gabapentin 100 mg capsule 200 mg PO BID Label Comments: TAKE 2 CAPSULES BY MOUTH TWICE DAILY benzonatate [benzonatate] 100 mg capsule 100 mg PO TIDP PRN (Reason: Cough) Qty: 30 0RF methylprednisolone 4 mg Tablets,Dose Pack 4 mg PO DIRECTED Qty: 21 0RF Referrals Follow up/Referrals: Clyde Almodovar MD [Primary Care Provider] - See instructions Clinical Impressions Clinical Impression: Gastroenteritis Instructions Patient Instructions: DI for Acute Abdominal Pain Discharge ED Provider: Jorge Wylie General Adult HPI General Chief complaint: Abdominal Pain Stated complaint: Vomiting, Diarrhea, possible dehydration Time Seen by Provider: 08/16/22 08:04 Mode of Arrival: Ambulatory Source of Information: Patient Limitations: No Limitations Description of Symptoms (Recalled from ER Triage Doc. by RN): pt to ED with nausea, vomiting and diarrhea since sunday with generalized stomach cramping. 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 Patient states that 3 days prior to arrival, she started developing diarrhea. Since that time, it has progressively gotten better, but patient is now on day 3 of significant amounts of watery diarrhea, vomiting (nonbloody, nonbilious), and generalized weakness secondary to dehydration. She states she has been unable to keep up with losses. Denies fevers, chills, chest pain, shortness of breath, cough, but has had mild abdominal pain in the setting of cramping and flank pain. Denies dysuria or hematuria. Has also cramping in bilateral lower extremities. Has not noticed anything that makes it better or worse. Abdominal pain currently 4 out of 10, does not radiate. Related Data Home Medications Medication Instructions Recorded Confirmed atorvastatin 40 mg tablet 40 mg PO HS Cholesterol 01/22/20 08/14/22 bisoprolol fumarate 10 mg tablet 10 mg PO DAILY High blood pressure 10/02/20 08/14/22 fenofibrate 160 mg tablet 160 mg PO DAILY Cholesterol 01/16/22 08/14/22 gabapentin 100 mg capsule 200 mg PO BID . 05/28/22 08/14/22 insulin glargine U-300 conc 300 62 unit SQ DAILY Diabetes 05/28/22 08/14/22 unit/mL (3 mL) subcutaneous pen (Toujeo Max U-300 SoloStar) insulin lispro 100 unit/mL 20 unit SQ TID Diabetes 05/28/22 08/14/22 subcutaneous pen (Humalog KwikPen (U-100) Insulin) tirzepatide 5 mg/0.5 mL 1 mg SQ WEEKLY . 05/28/22 08/14/22 subcutaneous pen injector (Perryunalekseyro) Previous Rx's Medication Instructions Recorded benzonatate 100 mg capsule 100 mg PO TIDP PRN Cough #30 caps 05/28/22 methylprednisolone 4 mg tablets in 4 mg PO DIRECTED #21 tabs 05/28/22 a dose pack desvenlafaxine succinate 100 mg 50 mg PO DAILY . #90 tabs 07/27/22 tablet,extended release 24 hr
[2022-08-16 08:37] LABS: Basophils # 0.2 K/mm3 (0-0.2); Basophils % 1.3 % (0.1-2.0); Eosinophils # 0.2 K/mm3 (0.0-0.4); Eosinophils % 1.4 % (0.1-12.0); Hematocrit 49.7 % (37.0-47.0); Hemoglobin 15.7 g/dL (12.2-16.2); Lymphocytes # 5.1 K/mm3 (0.7-4.5); Mean Corpuscular HGB Conc 31.5 g/dL (31.8-35.4); Mean Corpuscular Hemoglobin 29.3 pg (27.0-31.2); Mean Corpuscular Volume 92.8 fl (81-99); Mean Platelet Volume 7.6 fl (7.4-10.4); Monocytes # 1.8 K/mm3 (0.1-1.0); Monocytes % 11.7 % (1.7-9.3); Neutrophils # 8.2 K/mm3 (1.8-7.8); Neutrophils % 52.7 % (37.0-80.0); Platelet Count 522 K/mm3 (142-424); Red Blood Count 5.35 M/mm3 (4.20-5.40); Red Cell Distribution Width 14.6 % (11.5-17.5); White Blood Count 15.5 K/mm3 (4.8-10.8)
[2022-08-16 08:40] LABS: MANUAL DIFFERENTIAL MANUAL DIFFERENTIAL (MANUAL DIFF)
[2022-08-16 08:42] LABS: ABG Base Excess 1.6 mmol/L (-2.4-2.3); ABG HCO3 26.6 mmhg (22.0-26.0); ABG Oxygen Saturation 95 % (90-100); ABG PCO2 45.2 mmhg (35.0-45.0); ABG PH 7.39 mmol/L (7.35-7.45); ABG PO2 70.7 mmhg (80-100)
[2022-08-16 08:45] LABS: Oxygen ROOM AIR %
[2022-08-16 08:46] LABS: Allen's Test YES; Source Right Radial
[2022-08-16 08:52] LABS: Lymphocytes % 26 % (10-50); Monocytes % 12 % (2-9); Neutrophils % 62 % (42-76); Total Cells Counted 100
[2022-08-16 08:53] LABS: Acetone, Serum (Rapid) None Detected (None Detect); Platelet Estimate Slight Increase; RBC Morphology Normal
[2022-08-16 09:20] LABS: Chloride 98 mmol/L (98-107); Sodium 137 mmol/L (136-145)
[2022-08-16 09:21] LABS: Potassium 4.4 mmoL/L (3.5-5.1)
[2022-08-16 09:23] LABS: Blood Urea Nitrogen 12 mg/dl (7-17); Creatinine Clearance Estimated 180 mL/min (50-200); Estimated Glomerular Filt Rate 110 ml/min (>60); GFR (African American) 133 ML/MIN (>60)
[2022-08-16 09:24] LABS: Anion Gap 10.4 mEq/L (5-15); Calcium 9.5 mg/dl (8.4-10.2); Carbon Dioxide 33 mmol/L (22.0-30.0); Glucose 290 mg/dl (74-100)
--- NOTE | 2022-08-16 10:29 | CT_ITS ---
FINAL REPORT TECHNIQUE: Axial CT images of the abdomen and pelvis were obtained after the administration of oral and iv contrast. Coronal reformatted images were also obtained and reviewed.This study was performed with techniques to keep radiation doses as low as reasonably achievable (ALARA). Individualized dose reduction techniques using automated exposure control or adjustment of mA and/or kV according to the patient's size were employed. CLINICAL HISTORY: intractable abd pain COMPARISON: none FINDINGS: CT OF THE ABDOMEN AND PELVIS WITH CONTRAST Abdomen: There is mild bibasilar atelectasis or scarring. The heart is normal in size. There is mild fatty infiltration of the liver. Post cholecystectomy. Splenectomy with several splenules in the left upper quadrant. No adrenal mass is present. The pancreas has an unremarkable appearance. The kidneys are normal, without evidence of mass or hydronephrosis. The aorta is normal in caliber. There is no free fluid or adenopathy. No mass or abnormal fluid collection is seen. Pelvis: The appendix is absent. The urinary bladder is unremarkable. No inflammatory process is seen. There is no evidence of mass or adenopathy. There is no evidence of bowel obstruction. There is a small left ovarian cyst. IMPRESSION: No acute process. Reviewed, Interpreted and Dictated by Castro Patel III, MD Transcribed by Virginie Toribio Authenticated and [facility]
[2022-08-16 10:42] LABS: Microscopic, Urine URINE MICROSCOPIC (MICROSCOPIC)
[2022-08-16 10:45] LABS: Appearance,Urine CLEAR (Clear); Bilirubin,Urine Negative (Negative); Blood, Urine Negative (Negative); Color,Urine YELLOW (Yellow); Glucose,Urine (UA) 3+ (Negative); Ketones,Urine TRACE (Negative); Leukocyte Esterase,Urine Negative (Negative); Nitrate,Urine Negative (Negative); Protein,Urine Negative (Negative); Urobilinogen,Urine 0.2 EU/dl (0.2)
[2022-08-16 10:59] LABS: Bacteria,Urine 2+ /lpf; RBC,Urine Occasional #/hpf (0-3); WBC,Urine Occasional #/hpf (0-3)
[2022-08-16 11:42] LABS: Urine Pregnancy, HCG Qual. Negative (Negative)
[2022-08-16 15:39] LABS: Coronavirus 19, PCR Not Detected (NotDetected); Influenza A, PCR Not Detected (NotDetected); Influenza B, PCR Not Detected (NotDetected)
== END 2022-08-16 16:02 | disposition home or self-care (01) ==
PROVIDERS: Emergency Provider Emergency Medicine; PCP Family Medicine
DX: K52.9 Noninfective gastroenteritis and colitis, unspecified (principal)
CPT/HCPCS: 36415; 74177; 80048; 81001; 81025; 82009; 82803; 85007; 85025; 87086; 96360; 96374; 96375; 99285; C9803; J2405; Q9967; U0003; U0005

== ENCOUNTER 2022-08-24 15:06 | Emergency (ER) | payer BC, SELFPAY ==
[2022-08-24 15:07] VITALS: BP 144/98; PULSE 128; RESP 18; TEMP 36.8; O2SAT 96; BMI 33.9
--- NOTE | 2022-08-24 15:12 | HMH.EDGENADL ---
Discharge Plan Disposition Patient Disposition: Home, Self-Care Prescriptions Prescriptions: No Action lorazepam [Ativan] 1 mg tablet 1 mg PO .COMPLEX PRN (Reason: anxiety) Qty: 45 1RF Rx Instructions: 1 mg orally take 1/2 tablet in the am and 1 tablet at bedtime PRN; desvenlafaxine succinate [Pristiq] 100 mg tablet extended release 24 hr 50 mg PO DAILY Qty: 90 0RF bisoprolol fumarate 10 MG tablet 10 mg PO DAILY promethazine 25 mg tablet 25 mg PO TID PRN (Reason: nausea and vomiting) Qty: 10 0RF atorvastatin 40 MG tablet 40 mg PO HS fenofibrate 160 mg tablet 160 mg PO DAILY Label Comments: TAKE 1 TABLET BY MOUTH ONCE DAILY Toujeo Max U-300 SoloStar 300 unit/mL (3 mL) insulin pen 62 unit SQ DAILY Mounjaro 5 mg/0.5 mL pen injector 1 mg SQ WEEKLY Label Comments: INJECT 1 SYRINGE SUBCUTANEOUSLY ONCE A WEEK insulin lispro [Humalog KwikPen Insulin] 100 unit/mL insulin pen 20 unit SQ TID gabapentin 100 mg capsule 200 mg PO BID Label Comments: TAKE 2 CAPSULES BY MOUTH TWICE DAILY benzonatate [benzonatate] 100 mg capsule 100 mg PO TIDP PRN (Reason: Cough) Qty: 30 0RF methylprednisolone 4 mg Tablets,Dose Pack 4 mg PO DIRECTED Qty: 21 0RF Referrals Follow up/Referrals: Clyde Almodovar MD [Staff Physician] - See instructions Activity Restrictions/Add. Instructions Additional Instructions/Restrictions: Please follow-up with your behavioral scientist for better outpatient management of your hyperglycemia. Clinical Impressions Clinical Impression: Hyperglycemia Instructions Patient Instructions: DI for Hyperglycemia -- Adult Discharge ED Provider: Catrachita Mistry General Adult HPI General Chief complaint: Hyper/Hypoglycemia Stated complaint: High blood sugar Time Seen by Provider: 08/24/22 15:12 History of Present Illness HPI narrative: Patient is a 41-year-old female with a history of diabetes on insulin with most recent A1c of 6.9 she states presented today with hyperglycemia. She has been fatigued for the last week no other symptoms she took her blood sugar with her friend's glucometer at work and it read high. She states that glucometer has an upper limit of 600. Denies any fevers chills cough urinary symptoms or other infectious etiology symptoms. Related Data Home Medications Medication Instructions Recorded Confirmed atorvastatin 40 mg tablet 40 mg PO HS Cholesterol 01/22/20 08/14/22 bisoprolol fumarate 10 mg tablet 10 mg PO DAILY High blood pressure 10/02/20 08/14/22 fenofibrate 160 mg tablet 160 mg PO DAILY Cholesterol 01/16/22 08/14/22 gabapentin 100 mg capsule 200 mg PO BID . 05/28/22 08/14/22 insulin glargine U-300 conc 300 62 unit SQ DAILY Diabetes 05/28/22 08/14/22 unit/mL (3 mL) subcutaneous pen (Toujeo Max U-300 SoloStar) insulin lispro 100 unit/mL 20 unit SQ TID Diabetes 05/28/22 08/14/22 subcutaneous pen (Humalog KwikPen (U-100) Insulin) tirzepatide 5 mg/0.5 mL 1 mg SQ WEEKLY . 05/28/22 08/14/22 subcutaneous pen injector (Teodororo) Previous Rx's Medication Instructions Recorded benzonatate 100 mg capsule 100 mg PO TIDP PRN Cough #30 caps 05/28/22 methylprednisolone 4 mg tablets in 4 mg PO DIRECTED #21 tabs 05/28/22 a dose pack desvenlafaxine succinate 100 mg 50 mg PO DAILY . #90 tabs 07/27/22 tablet,extended release 24 hr (Pristiq) lorazepam 1 mg tablet (Ativan) 1 mg PO .COMPLEX PRN anxiety #45 07/27/22 tabs promethazine 25 mg tablet 25 mg PO TID PRN nausea and 08/16/22 vomiting #10 tabs Allergies Allergy/AdvReac Type Severity Reaction Status Date / Time No Known Allergies Allergy Verified 06/05/22 13:13 [facility] Disclaimer: The information contained in this section may have been updated after the patient was seen, as this information can be updated by other users. Medical History Anxiet
--- NOTE | 2022-08-24 15:34 | PC.NURSE ---
DR CHAO AT BEDSIDE
[2022-08-24 15:48] LABS: Basophils # 0.2 K/mm3 (0-0.2); Basophils % 1.1 % (0.1-2.0); Eosinophils # 0.2 K/mm3 (0.0-0.4); Eosinophils % 1.6 % (0.1-12.0); Hematocrit 45.8 % (37.0-47.0); Hemoglobin 14.6 g/dL (12.2-16.2); Lymphocytes # 5.5 K/mm3 (0.7-4.5); Lymphocytes % 37.6 % (10-50); Mean Corpuscular HGB Conc 31.9 g/dL (31.8-35.4); Mean Corpuscular Hemoglobin 29.1 pg (27.0-31.2); Mean Corpuscular Volume 91.2 fl (81-99); Mean Platelet Volume 9.2 fl (7.4-10.4); Monocytes # 1.4 K/mm3 (0.1-1.0); Monocytes % 9.9 % (1.7-9.3); Neutrophils # 7.3 K/mm3 (1.8-7.8); Neutrophils % 49.8 % (37.0-80.0); Platelet Count 454 K/mm3 (142-424); Red Blood Count 5.02 M/mm3 (4.20-5.40); Red Cell Distribution Width 14.7 % (11.5-17.5); White Blood Count 14.6 K/mm3 (4.8-10.8)
[2022-08-24 15:49] LABS: Chloride 98 mmol/L (98-107); Potassium 4.1 mmoL/L (3.5-5.1); Sodium 133 mmol/L (136-145)
[2022-08-24 15:52] LABS: Alanine Aminotransferase 33 U/L (12-78); Albumin Level 4.2 g/dl (3.5-5.0); Albumin/Globulin Ratio 1.1 (1.1-1.8); Alkaline Phosphatase 173 U/L (38-126); Anion Gap 14.1 mEq/L (5-15); Aspartate Amino Transferase 29 U/L (14-36); Bilirubin,Total 0.4 mg/dl (0.2-1.3); Blood Urea Nitrogen 13 mg/dl (7-17); Carbon Dioxide 25 mmol/L (22.0-30.0); Creatinine Clearance Estimated 122 mL/min (50-200); Estimated Glomerular Filt Rate 69 ml/min (>60); GFR (African American) 83 ML/MIN (>60); Globulin 3.8 g/dL (1.3-3.2); Phosphorous 3.4 mg/dl (2.5-4.5)
[2022-08-24 15:53] LABS: Calcium 9.5 mg/dl (8.4-10.2); Magnesium 1.9 mg/dl (1.6-2.3)
[2022-08-24 16:00] VITALS: BP 131/84; PULSE 119; RESP 19; O2SAT 93
[2022-08-24 16:02] LABS: Glucose 575 mg/dl (74-100)
--- NOTE | 2022-08-24 16:06 | PC.NURSE ---
pt ambulated independently to the bathroom at this time
--- NOTE | 2022-08-24 16:11 | PC.NURSE ---
UA sent to lab
[2022-08-24 16:14] LABS: Microscopic, Urine URINE MICROSCOPIC (MICROSCOPIC)
[2022-08-24 16:22] LABS: Appearance,Urine CLEAR (Clear); Bilirubin,Urine Negative (Negative); Blood, Urine Negative (Negative); Color,Urine YELLOW (Yellow); Glucose,Urine (UA) 3+ (Negative); Ketones,Urine Negative (Negative); Leukocyte Esterase,Urine Negative (Negative); Nitrate,Urine Negative (Negative); Protein,Urine Negative (Negative); Specific Gravity, Urine <= 1.005 (1.005-1.030); Urobilinogen,Urine 0.2 EU/dl (0.2)
--- NOTE | 2022-08-24 16:25 | PC.NURSE ---
VBG GIVEN TO RESPIRATORY
[2022-08-24 16:27] LABS: VBG Base Excess 1.8 mmol/L (-2.4-2.3); VBG HCO3 26.3 mmol/L (23-30); VBG Oxygen Saturation 87.3 % (50-70); VBG PCO2 42.1 mmol/L (35-51); VBG PH 7.41 mmol/L (7.31-7.41); VBG PO2 51.4 mmol/L (28-40); VBG Total CO2 27.6 mmol/L (23-27)
[2022-08-24 16:30] VITALS: BP 130/75; PULSE 102; O2SAT 96
[2022-08-24 16:33] LABS: Squamous Epithelial Cell,Urine Occasional #/hpf (0-5); WBC,Urine Occasional #/hpf (0-3)
[2022-08-24 16:34] LABS: Bacteria,Urine Trace /lpf; Yeast,Urine 3+ /lpf
--- NOTE | 2022-08-24 17:28 | PC.NURSE ---
PT RESTING COMFORTABLY, CALL LIGHT WITHIN REACH. NO NEEDS AT THIS TIME
--- NOTE | 2022-08-24 17:56 | PC.NURSE ---
DR CHAO AT BEDSIDE TO UPDATE PT
[2022-08-24 18:01] LABS: POC Glucose,Bedside 326 (70-110)
[2022-08-24 18:11] VITALS: BP 140/94; PULSE 98; RESP 17; TEMP 36.8; O2SAT 97
== END 2022-08-24 18:15 | disposition home or self-care (01) ==
PROVIDERS: Emergency Provider Student in an Organized Health Care Education/Training Program; PCP Nurse Practitioner Family
DX: E11.65 Type 2 diabetes mellitus with hyperglycemia (principal)
CPT/HCPCS: 80053; 81001; 82803; 82962; 83735; 84100; 85025; 96360; 96361; 99284; 99285

== ENCOUNTER → 2022-11-01 16:52 | Outpatient (CLI) | payer BC, SELFPAY ==
--- NOTE | 2022-11-01 16:55 | MM_ITS ---
PROCEDURE INFORMATION: Exam: Bilateral Screening 3D Mammography Exam date and time: 11/01/2022 4:44 PM Age: 42 years old Clinical indication: Screening mammogram.; Family history of breast cancer in aunt TECHNIQUE: Imaging protocol: Bilateral Screening tomosynthesis and 2D mammography including computer-aided detection (CAD) when performed. COMPARISON: MAMMO SCREENING DIGITAL TOMOSYNTHESIS BILATERAL W CAD 11/24/2019 8:54 AM FINDINGS: MAMMOGRAPHY: Breast composition: There are scattered areas of fibroglandular density. Mass: None. Architectural distortion: No new or suspicious architectural distortion. Calcifications: No new or suspicious calcifications are present Asymmetric density: No new or suspicious asymmetric density is present Skin thickening: None. Axillary adenopathy: None. IMPRESSION: No mammographic evidence of malignancy. Recommend annual screening mammography unless otherwise clinically indicated. ASSESSMENT: BI-RADS category 1: Negative
== END ==
PROVIDERS: PCP Nurse Practitioner Family; Visit Provider Nurse Practitioner Family
DX: Z12.31 Encounter for screening mammogram for malignant neoplasm of breast (principal)
CPT/HCPCS: 77063; 77067

== ENCOUNTER 2023-02-08 11:19 | Observation (INO) | payer BC, SELFPAY ==
[2023-02-08] VITALS (13 sets, daily range): BP systolic 95–133; BP diastolic 45–88; PULSE 84–105; RESP 6–19; TEMP 36.6–36.9; O2SAT 91–95; BMI 32.3; BMI 35.0
--- NOTE | 2023-02-08 11:27 | HMH.EDGENADL ---
Discharge Plan Disposition Patient Disposition: Admitted Chief Complaint: Syncope Prescriptions Prescriptions: No Action diazepam 5 mg tablet 5 mg PO HS PRN (Reason: anxiety) Qty: 60 0RF desvenlafaxine succinate [Pristiq] 100 mg tablet extended release 24 hr 100 mg PO DAILY Qty: 90 0RF Auvelity 45-105 mg tablet, IR and ER, biphasic 1 tab PO BID Qty: 60 2RF bisoprolol fumarate 10 MG tablet 10 mg PO DAILY promethazine 25 mg tablet 25 mg PO TID PRN (Reason: nausea and vomiting) Qty: 10 0RF atorvastatin 40 MG tablet 40 mg PO HS fenofibrate 160 mg tablet 160 mg PO DAILY Patient Comments: TAKE 1 TABLET BY MOUTH ONCE DAILY Toujeo Max U-300 SoloStar 300 unit/mL (3 mL) insulin pen 62 unit SQ DAILY Mounjaro 5 mg/0.5 mL pen injector 1 mg SQ WEEKLY Patient Comments: INJECT 1 SYRINGE SUBCUTANEOUSLY ONCE A WEEK insulin lispro [Humalog KwikPen Insulin] 100 unit/mL insulin pen 20 unit SQ TID gabapentin 100 mg capsule 200 mg PO BID Patient Comments: TAKE 2 CAPSULES BY MOUTH TWICE DAILY benzonatate [benzonatate] 100 mg capsule 100 mg PO TIDP PRN (Reason: Cough) Qty: 30 0RF methylprednisolone 4 mg Tablets,Dose Pack 4 mg PO DIRECTED Qty: 21 0RF Clinical Impressions Clinical Impression: Sepsis secondary to UTI, Postural dizziness with presyncope Discharge ED Provider: Elgin Patel General Adult HPI General Chief complaint: Syncope Stated complaint: weakness Time Seen by Provider: 02/08/23 11:20 History of Present Illness HPI narrative: Patient is a 42-year-old female past medical history of insulin-dependent diabetes, tachycardia on beta-blockers, recent diagnosed COVID, recently diagnosed urinary tract infection who presents emergency department for evaluation of syncope. 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 Over the last week her sugars have been running in 300s to 400s. She was diagnosed with a urinary tract infection for which she has been compliant with Macrobid. There is been associated nonbloody diarrhea and nonbloody vomiting over the last 24 hours. Patient states that she has a history of passing out previously in the setting of dehydration. Denies chest pain, vaginal bleeding. Has mild suprapubic discomfort and has also been taking Azo. Related Data Home Medications Medication Instructions Recorded Confirmed atorvastatin 40 mg tablet 40 mg PO HS Cholesterol 01/22/20 01/29/23 bisoprolol fumarate 10 mg tablet 10 mg PO DAILY High blood pressure 10/02/20 01/29/23 fenofibrate 160 mg tablet 160 mg PO DAILY Cholesterol 01/16/22 01/29/23 gabapentin 100 mg capsule 200 mg PO BID . 05/28/22 01/29/23 insulin glargine U-300 conc 300 62 unit SQ DAILY Diabetes 05/28/22 01/29/23 unit/mL (3 mL) subcutaneous pen (Toujeo Max U-300 SoloStar) insulin lispro 100 unit/mL 20 unit SQ TID Diabetes 05/28/22 01/29/23 subcutaneous pen (Humalog KwikPen (U-100) Insulin) tirzepatide 5 mg/0.5 mL 1 mg SQ WEEKLY . 05/28/22 01/29/23 subcutaneous pen injector (Ashley) Previous Rx's Medication Instructions Recorded benzonatate 100 mg capsule 100 mg PO TIDP PRN Cough #30 caps 05/28/22 methylprednisolone 4 mg tablets in 4 mg PO DIRECTED #21 tabs 05/28/22 a dose pack promethazine 25 mg tablet 25 mg PO TID PRN nausea and 08/16/22 vomiting #10 tabs desvenlafaxine succinate 100 mg 100 mg PO DAILY . #90 tabs 01/29/23 tablet,extended release 24 hr (Pristiq) dextromethorphan IR 45 1 tab PO BID #60 tabs 01/29/23 mg-bupropion ER 105 mg biphasic tablet (Auvelity) diazepam 5 mg tablet 5 mg PO HS PRN anxiety #60 tabs 01/29/23 Allergies Allergy/AdvReac Type Severity Reaction Status Date / Time No Known Allergies Allergy Verified 01/11/23 13:42 [facility] Disclaimer: The information contained in this section may have been updated after the patient was seen,
--- NOTE | 2023-02-08 11:32 | PC.NURSE ---
Respiratory notified of VBG order and blood sent to lab
[2023-02-08 11:34] LABS: VBG Base Excess -6.5 mmol/L (-2.4-2.3); VBG HCO3 19.9 mmol/L (23-30); VBG Oxygen Saturation 89.6 % (50-70); VBG PO2 55.7 mmol/L (28-40); VBG Total CO2 21.1 mmol/L (23-27)
[2023-02-08 11:36] LABS: Basophils # 0.2 K/mm3 (0-0.2); Basophils % 0.8 % (0.1-2.0); Eosinophils # 0.2 K/mm3 (0.0-0.4); Eosinophils % 1.2 % (0.1-12.0); Hemoglobin 14.6 g/dL (12.2-16.2); Lymphocytes # 4.1 K/mm3 (0.7-4.5); Lymphocytes % 21.3 % (10-50); Mean Corpuscular HGB Conc 33.1 g/dL (31.8-35.4); Mean Corpuscular Hemoglobin 31.7 pg (27.0-31.2); Mean Corpuscular Volume 95.5 fl (81-99); Mean Platelet Volume 8.3 fl (7.4-10.4); Monocytes # 2.3 K/mm3 (0.1-1.0); Monocytes % 11.7 % (1.7-9.3); Neutrophils # 12.5 K/mm3 (1.8-7.8); Neutrophils % 65.1 % (37.0-80.0); Platelet Count 587 K/mm3 (142-424); Red Blood Count 4.61 M/mm3 (4.20-5.40); White Blood Count 19.2 K/mm3 (4.8-10.8)
[2023-02-08 11:38] LABS: MANUAL DIFFERENTIAL MANUAL DIFFERENTIAL (MANUAL DIFF)
[2023-02-08 11:41] LABS: Alanine Aminotransferase 32 U/L (12-78); Albumin Level 3.9 g/dl (3.5-5.0); Albumin/Globulin Ratio 1.1 (1.1-1.8); Alkaline Phosphatase 102 U/L (38-126); Anion Gap 11.3 mEq/L (5-15); Aspartate Amino Transferase 36 U/L (14-36); Bilirubin,Total 0.3 mg/dl (0.2-1.3); Blood Urea Nitrogen 15 mg/dl (7-17); Calcium 9.2 mg/dl (8.4-10.2); Carbon Dioxide 27 mmol/L (22.0-30.0); Chloride 105 mmol/L (98-107); Creatine Kinase 31 U/L (30-135); Estimated Glomerular Filt Rate 109 ml/min (>60); GFR (African American) 132 ML/MIN (>60); Globulin 3.6 g/dL (1.3-3.2); Glucose 156 mg/dl (74-100); Lipase 34 U/L (23-300); Potassium 4.3 mmoL/L (3.5-5.1); Sodium 139 mmol/L (136-145); Total Protein,Serum 7.5 g/dl (6.3-8.2)
--- NOTE | 2023-02-08 11:46 | PC.NURSE ---
pt assisted to bathroom room per myself and mayte. Pt needed standby assistance for ambulation. I asked pt if okay for staff to stay with pt in restroom, pt declined, stated she would be okay . Pt oriented to call pull string in bathroom.
[2023-02-08 11:49] LABS: Acetone, Serum (Rapid) None Detected (None Detect)
[2023-02-08 11:51] LABS: HCG Qualitative, Serum Negative (Negative)
[2023-02-08 12:00] LABS: Microscopic, Urine URINE MICROSCOPIC (MICROSCOPIC)
--- NOTE | 2023-02-08 12:00 | PC.NURSE ---
Dr. Patel at to speak with pt about POC
--- NOTE | 2023-02-08 12:06 | XR_ITS ---
FINAL REPORT TECHNIQUE: Single view chest CLINICAL HISTORY: pre-syncope FINDINGS: A single view of the chest was obtained. The heart and mediastinum are within normal limits. There are mild bibasilar opacities, favor atelectasis over pneumonia. There is no pneumothorax. Osseous structures are unremarkable. IMPRESSION: Mild bibasilar opacities, favor atelectasis over pneumonia. Reviewed, Interpreted and Dictated by Castro Patel III, MD Transcribed by Kamini Bustos Authenticated and [facility]
[2023-02-08 12:07] LABS: Eosinophils % 2 % (0-3); Lymphocytes % 21 % (10-50); Monocytes % 13 % (2-9); Neutrophils % 64 % (42-76); RBC Morphology Normal; Total Cells Counted 100
[2023-02-08 12:08] LABS: Platelet Estimate Moderate Increase
[2023-02-08 12:18] LABS: Appearance,Urine CLEAR (Clear); Blood, Urine Negative (Negative); Color,Urine ORANGE (Yellow); Glucose,Urine (UA) 1+ (Negative); Ketones,Urine TRACE (Negative); Leukocyte Esterase,Urine TRACE (Negative); Nitrate,Urine POSITIVE (Negative); Protein,Urine 2+ (Negative); Specific Gravity, Urine >= 1.030 (1.005-1.030)
--- NOTE | 2023-02-08 12:22 | PC.NURSE ---
RAD at BS
[2023-02-08 12:34] LABS: Bilirubin,Urine 2+ (Negative)
--- NOTE | 2023-02-08 12:38 | PC.NURSE ---
rounded on pt again. She is sleepy but arouses to verbal command, GCS 14. Started 2nd liter bolus
[2023-02-08 12:41] LABS: Bacteria,Urine 1+ /lpf; Mucus,Urine Trace /lpf
--- NOTE | 2023-02-08 12:57 | PC.NURSE ---
contacted lab to check on results of ddimer, states will be approx [address] walker
[2023-02-08 13:09] LABS: D-Dimer 0.86 ug/mL (0.0-0.5)
--- NOTE | 2023-02-08 13:11 | PC.NURSE ---
rounded on pt at this time. repositioned hand for IVF to flow better. Pt sleeping, visitor at BS
--- NOTE | 2023-02-08 13:40 | PC.NURSE ---
DILLON PITTS on the phone with hospitalist medicine
--- NOTE | 2023-02-08 13:42 | PC.NURSE ---
CM aware of admission
[2023-02-08 13:46] LABS: Coronavirus 19, PCR Not Detected (NotDetected); Influenza A, PCR Not Detected (NotDetected); Influenza B, PCR Not Detected (NotDetected)
--- NOTE | 2023-02-08 13:47 | PC.NURSE ---
Pt ambulatory to bathroom with staff assist
--- NOTE | 2023-02-08 14:52 | EXP.HP ---
History of Present Illness *Admission Date: 02/08/23 *Reason for visit:: Chief complaint: Syncopal episode *History of present illness: This is a 42-year-old female who presents to [facility] emergency department with concerns of syncopal episode at work today. Her past medical history significant for diabetes, hypertension, depression and hyperlipidemia. She reports a recent diagnosis of COVID-19 treated as outpatient. She describes uncontrolled blood sugars over the last week or two. She reports a recent diagnosis of urinary tract infection and treated with oral antibiotic therapy. She started experiencing some nausea, vomiting and diarrhea over the last 24 hours. She reports no associated fever, chills, dyspnea or pain with inspiration. She reports a nonproductive croupy cough that has become intermittent and no associated hemoptysis. Her presenting ED vitals identified some tachycardia that improved with fluid resuscitation but no tachypnea, fever. She saturated appropriately on room air. Her laboratory studies identified a leukocytoses with normal electrolytes and creatinine. Her lactic acid was normal. [facility] Medical History (Updated 02/08/23 @ 17:22 by Darrian Schaffer MD) Depression Diabetes mellitus, type 2 Generalized anxiety disorder Hyperlipidemia Hypertension Migraine Surgical History History of appendectomy History of cholecystectomy History of splenectomy Family History Mother FHx: mental illness Father Diabetes Grandfather Diabetes Grandmother Cancer Social History (Updated 02/08/23 @ 17:04 by Diamond Bryan RN) Smoking Status: Never smoker second hand exposure: No alcohol intake: never substance use type: denies use current occupational status: employed and other details: she is in the process of getting a job; she is interviewing Travel in the last 8 weeks: None adopted: No caregiver/support person: Yes (she takes care of her grand-daughter) foster care: No household members: spouse housing: house marital status: number of children: 1 number of grandchildren: 1 education level: high school service: No half-way: No 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 current occupational exposures/hazards: No Hx Recent Travel: No sexually active: Yes caffeine: Yes physical activity: none working smoke detector in home: Yes fire extinguisher in home: Yes carbon monox detector in home: No firearms in home: Yes firearms unloaded and locked: Yes do you feel safe at home: Yes victim of physical abuse: No victim of emotional abuse: No victim of sexual abuse: No Review of Systems Review of Systems Review of systems:: pertinent systems reviewed and negative unless documented below Constitutional Constitutional: Denies chills and Denies fever(s) ENT Ears, Nose, Mouth, and Throat: Denies odynophagia *Cardiovascular Cardiovascular: Denies chest pain, Denies chest pain at rest, Denies dyspnea and Denies dyspnea on exertion *Respiratory Respiratory: Denies dyspnea and Denies dyspnea on exertion *Gastrointestinal Gastrointestinal: Denies hematemesis, Denies hematochezia, Reports loose stools, Denies melena, Reports nausea, Denies odynophagia and Reports vomiting *Genitourinary Genitourinary: Denies pelvic pain and Denies vaginal discharge Meds Home Medications and Allergies Home Medications Medication Instructions Recorded Confirmed Type atorvastatin 40 mg tablet 40 mg PO HS Cholesterol 01/22/20 02/08/23 History bisoprolol fumarate 10 mg tablet 10 mg PO DAILY High blood pressure 10/02/20 02/08/23 History fenofibrate 160 mg tablet 160 mg PO DAILY Cholesterol 01/16/22 02/08/23 History insulin glargine U-300 conc 300 62 unit SQ DAILY Diabetes 05/28/22 02/08/23 History unit/mL (3 mL) subcutaneous pen (Toujeo Max U
--- NOTE | 2023-02-08 15:06 | HMH.PHAINT1 ---
Pharmacy Intervention Comments: MEDICATION RECONCILIATION COMPLETED ON PATIENT USING EXTERNAL FILL HISTORY FROM PHARMACY AND [facility]NER REPORT. -LINDY HUMMEL, MAYD
[2023-02-08 15:14] LABS: INR 0.92 (0.9-1.1)
--- NOTE | 2023-02-08 15:19 | PC.NURSE ---
pt taken to 2nd floor via wheelchair
--- NOTE | 2023-02-08 15:56 | PC.NURSE ---
second floor staff called stated she is a Dr. Almodovar pt. 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 Pt was admitted to hospitalist Dr. Bobo. Contacted [facility] office, spoke with Dr. Oro notified him of the misunderstanding and what pt admitted diagnosis is. Dr. Oro states he is fine either way if pt want him to be admitting provider or if she wants to see the hospitalist because Dr. Almodovar does not round on admitted pts. States just to let him know what pt decides. Contacted second floor back notified them what Dr. Oro had said r/t admission, pt could choose. Second floor primary nurse spoke with pt then called me back and stated pt says she is fine to stay with Dr. Bobo for admission. Contacted [facility] office back left message for Dr. Oro with Verito that pt states she will stay admitted to Dr. Bobo. care management and maid housekeeper aware.
[2023-02-08 16:09] LABS: POC Glucose,Bedside 120 (70-110)
--- NOTE | 2023-02-08 16:15 | PC.NURSE ---
COURTESY NOTE: rounded on pt. pt has no requests at this time.
--- NOTE | 2023-02-08 18:12 | PC.NURSE ---
COURTESY TECH: rounded on pt after dinner. pt denies any assistance at this time.
--- NOTE | 2023-02-08 19:23 | CT_ITS ---
PROCEDURE INFORMATION: Exam: CT Head Without Contrast Exam date and time: 02/08/2023 7:54 PM Age: 42 years old Clinical indication: Syncope and collapse; Additional info: Near syncope TECHNIQUE: Imaging protocol: Computed tomography of the head without contrast. Radiation optimization: All CT scans at this facility use at least one of these dose optimization techniques: automated exposure control; mA and/or kV adjustment per patient size (includes targeted exams where dose is matched to clinical indication); or iterative reconstruction. REPORTING DATA: Count of CT and Cardiac NM exams in prior 12 months: This patient has received [address] and 0 known cardiac nuclear medicine studies in the 12 months prior to the current study. COMPARISON: No relevant prior studies available. FINDINGS: Brain: No evidence for acute transcortical infarct. No mass effect or midline shift. No extra-axial collection. No acute intracranial hemorrhage. Basal cisterns are patent. Cerebral ventricles: No ventriculomegaly. Paranasal sinuses: Visualized sinuses are unremarkable. No fluid levels. Mastoid air cells: Visualized mastoid air cells are well aerated. Bones/joints: Unremarkable. No acute fracture. Soft tissues: Unremarkable. IMPRESSION: No evidence for acute transcortical infarct, acute intracranial hemorrhage, or mass effect.
[2023-02-08 20:48] LABS: POC Glucose,Bedside 149 (70-110)
[2023-02-09] VITALS (9 sets, daily range): BP systolic 110–151; BP diastolic 67–85; PULSE 90–110; RESP 16–18; TEMP 36.4–37.2; O2SAT 89–96; BMI 33.8
--- NOTE | 2023-02-09 03:23 | PC.NURSE ---
At beginning of shift, pt reported multiple syncopal episodes while going to the bathroom. Pt denies hitting her head and states that he caught her. Educated pt and family that pt activity will be restricted to turning in bed to promote safety and prevent fall. Pt very drowsy on assessment. MD notified and orders placed. During orthostatic position changes, pt experienced multiple syncopal episodes in which she would become unresponsive to name and shaking, head and eyes fall back, and inability to support weight. Pt stated she would only feel a lightheadedness before experiencing syncopal episode. Pt returned from CT without any issues. Pt able to take PO meds, but RN explained holding on possible sedating meds, which pt and mom verbalized understanding. Pt had multiple incontinent episodes in a.m., and SRNA changed linens and cleaned pt. Pt slept most of shift up to this reassessment. No acute needs at this time.
--- NOTE | 2023-02-09 06:00 | ECG_ITS ---
APPROVED REPORT Exam: Resting ECG HR:95 bpm ECG Measurements Heart Rate 95 AXES CA 159 P 24 QRSd 95 QRS 30 QT 333 T 7 QTc 385 Conclusion SINUS RHYTHM NORMAL ECG UNCONFIRMED REPORT Electronically signed by : Raman Hopson MD 02/10/2023 11:05:10
[2023-02-09 06:19] LABS: POC Glucose,Bedside 131 (70-110)
[2023-02-09 06:51] LABS: Basophils # 0.1 K/mm3 (0-0.2); Eosinophils # 0.3 K/mm3 (0.0-0.4); Monocytes % 11.8 % (1.7-9.3); Platelet Count 509 K/mm3 (142-424)
[2023-02-09 06:53] LABS: Chloride 109 mmol/L (98-107); Sodium 137 mmol/L (136-145)
[2023-02-09 06:54] LABS: Potassium 3.8 mmoL/L (3.5-5.1)
[2023-02-09 06:56] LABS: Blood Urea Nitrogen 9 mg/dl (7-17); Creatinine Clearance Estimated 219 mL/min (50-200); Estimated Glomerular Filt Rate 135 ml/min (>60); GFR (African American) 163 ML/MIN (>60)
[2023-02-09 06:57] LABS: Anion Gap 6.8 mEq/L (5-15); Calcium 7.5 mg/dl (8.4-10.2); Carbon Dioxide 25 mmol/L (22.0-30.0); Glucose 132 mg/dl (74-100)
[2023-02-09 06:58] LABS: Basophils % 0.6 % (0.1-2.0); Eosinophils % 2.8 % (0.1-12.0); Hematocrit 38.8 % (37.0-47.0); Lymphocytes # 5.2 K/mm3 (0.7-4.5); Mean Corpuscular Hemoglobin 30.4 pg (27.0-31.2); Mean Corpuscular Volume 95.1 fl (81-99); Monocytes # 1.4 K/mm3 (0.1-1.0); Neutrophils # 4.8 K/mm3 (1.8-7.8); Neutrophils % 40.7 % (37.0-80.0); Red Blood Count 4.08 M/mm3 (4.20-5.40); White Blood Count 11.9 K/mm3 (4.8-10.8)
[2023-02-09 06:59] LABS: Hemoglobin 12.4 g/dL (12.2-16.2)
--- NOTE | 2023-02-09 07:45 | PC.NURSE ---
in and out cathed pt and obtained 700mL yellow urine
--- NOTE | 2023-02-09 09:14 | CA_ITS ---
APPROVED REPORT EXAM: Comprehensive 2D, Doppler, and color-flow Echocardiogram Crystal Inspector: Mirlande Lancaster RDCS Ht: 5 ft 6 in Wt: 210lbs BSA: 2.04 BP: 103/69 mmHg Indications: SYNCOPE,SVT,HTN,HLP 2D Dimensions LVOT 1.81 cm (M/F) 1.5-2.5 M-Mode Dimensions RVDd 1.87 cm (0.9-2.6) LA Diam 3.49 cm (1.9-4.0) LVDd 5.61 cm (3.5-5.7) Ao Diam 3.19 cm (2.0-3.7) LVDs 3.65 cm (3.5-5.7) IVSd 0.59 cm (0.6-1.1) PWd 0.64 cm (0.6-1.1) EF (Teich) 63.50% FS 34.90% EDV (Teich) 154.30 mL TAPSE 1.96 (<1.7) ESV (Teich) 56.30 mL LV Diastology E Decel Time 160.00 (160-240 msec) E/A Ratio 1.6 MED E' 15.00 (< 7 cm/sec) E'/MED E' Ratio 7.51 (>14) LAT E' 10.50 (<10 cm/sec) E/LAT E' Ratio 10.72 (>14) Mitral Valve MV E Max Darius. 113.00 (40-130 cm/s) MV A Velocity 70.00 (40-130 cm/s) E/A Ratio 1.60 MV Decel. Time 160.00 (160-240 ms) MV PHT 47.00 ms Left Ventricle The left ventricle is normal size. The left ventricular systolic function is normal. The left ventricular ejection fraction is within the normal range. There is normal left ventricular wall thickness. There is normal LV segmental wall motion. The left ventricular diastolic function is normal. LVEF is 60%. Right Ventricle The right ventricle is normal size. The right ventricular systolic function is normal. Atria The left atrium size is normal. The right atrium size is normal. Aortic Valve The aortic valve opens well. There is no aortic valvular stenosis. No aortic regurgitation is present. Mitral Valve The mitral valve is normal in structure. No evidence of mitral valve stenosis. There is no mitral valve regurgitation noted. Tricuspid Valve The tricuspid valve leaflets are thin and pliable. Trace tricuspid regurgitation. There is insufficient TR jet to estimate RVSP. Pulmonic Valve The pulmonary valve is normal in structure. Trace pulmonic regurgitation. Great Vessels The aortic root is normal in size. The ascending aorta is not well visualized. IVC is normal in size and collapses >50% with inspiration. Pericardium There is no pericardial effusion. Other Information Study Quality: Adequate Conclusion Normal biventricular systolic function. No significant valvular stenosis or regurgitation. Electronically signed by : Ruthy Lange MD 02/09/2023 18:11:43
--- NOTE | 2023-02-09 09:15 | EXP.CARD.CON ---
History of Present Illness History of Present Illness Consult date: 02/09/23 Requesting physician: Darrian Schaffer Chief complaint: syncope Additional Medical History:: 1. Diabetes mellitus type 2, treated for many years A. Patient reports A1c of 9 recently 2. History of sinus tachycardia treated with beta-haliey therapy 3. Acute viral syndrome with vomiting and diarrhea, 01/2023 4. UTI, 01/2023 5. Recurrent syncope felt secondary to acute viral illness and UTI consistent with vasovagal syncope 6. History of depression 7. History of hyperlipidemia 8. Recent history of positive COVID testing, 01/28/2023 History of present illness: This is a 42-year-old female who presents to [facility] emergency department with concerns of syncopal episode at work today. Her past medical history significant for diabetes, hypertension, depression and hyperlipidemia. She reports a recent diagnosis of COVID-19 treated as outpatient. She describes uncontrolled blood sugars over the last week or two. She reports a recent diagnosis of urinary tract infection and treated with oral antibiotic therapy. She started experiencing some nausea, vomiting and diarrhea over the last 24 hours. She reports no associated fever, chills, dyspnea or pain with inspiration. She reports a nonproductive croupy cough that has become intermittent and no associated hemoptysis. Her presenting ED vitals identified some tachycardia that improved with fluid resuscitation but no tachypnea, fever. She saturated appropriately on room air. Her laboratory studies identified a leukocytoses with normal electrolytes and creatinine. Her lactic acid was normal. The above per Dr. Schaffer Events as noted above confirmed with the patient. While at work yesterday she had episodes of loss of consciousness while sitting at her desk and then repeatedly when being transitioned from lying on the floor to sitting up or sitting up to standing. She denies any chest pain, pressure or tightness. She does have a history of tachycardia for which she has been treated with bisoprolol for many years. No prior history of cardiac issues otherwise. Non-smoker Diabetes, treated for many years No history of hypertension. Hyperlipidemia, treated for many years Cardiology consulted for evaluation. EKG today shows sinus rhythm at [address] [facility] Disclaimer: The information contained in this section may have been updated after the patient was seen, as this information can be updated by other users. Medical History (Updated 02/09/23 @ 09:26 by SHAQUILLE Cleaning) Depression Diabetes mellitus, type 2 Generalized anxiety disorder Hyperlipidemia Hypertension Migraine Surgical History History of appendectomy History of cholecystectomy History of splenectomy Family History Mother FHx: mental illness Father Diabetes Grandfather Diabetes Grandmother Cancer Social History (Updated 02/08/23 @ 17:04 by Diamond Bryan, KARINA) Smoking Status: Never smoker second hand exposure: No alcohol intake: never substance use type: denies use current occupational status: employed and other details: she is in the process of getting a job; she is interviewing Travel in the last 8 weeks: None adopted: No caregiver/support person: Yes (she takes care of her grand-daughter) foster care: No household members: spouse housing: house marital status: number of children: 1 number of grandchildren: 1 education level: high school service: No care home: No 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
--- NOTE | 2023-02-09 09:22 | PC.NURSE ---
informed pt that discharge order had been placed and asked pt if had a ride home and pt replied my daughter will be here soon
--- NOTE | 2023-02-09 11:10 | EXP.PN ---
Subjective *Date: 02/09/23 *Time: 11:10 Interval history: Patient is seen and examined at bedside today. The patient is accompanied by her mother. I am accompanied by nursing staff. She reports that she is feeling some better. She describes having a bowel movement last night and passing out on the toilet. This was witnessed by her but not nursing staff. She recovered promptly with no identified tonic-clonic movements. No postictal state was reported. Nursing staff have acquired orthostatic blood pressures identifying deficits. She continues with IV fluid resuscitation and cardiology has been consulted. Exam Data for Last 24 hours Vital signs and Labs for Last 24 Hours: Temp Pulse Resp BP Pulse Ox O2 Del Method 98.0 F 99 H 18 151/85 H 94 L Room Air 02/09/23 08:00 02/09/23 08:00 02/09/23 08:00 02/09/23 08:00 02/09/23 08:00 02/09/23 09:00 Laboratory Results - last 24 hr 02/08/23 11:20: WBC 19.2 H, RBC 4.61, Hgb 14.6, Hct 44.0, MCV 95.5, MCH 31.7 H, MCHC 33.1, RDW 14.0, Plt Count 587 H, MPV 8.3, Neut % (Auto) 65.1, Lymph % (Auto) 21.3, [place] % (Auto) 11.7 H, Eos % (Auto) 1.2, Baso % (Auto) 0.8, Neut # (Auto) 12.5 H, Lymph # (Auto) 4.1, [place] # (Auto) 2.3 H, Eos # (Auto) 0.2, Baso # (Auto) 0.2, Total Counted 100, Neutrophils % (Manual) 64, Lymphocytes % (Manual) 21, Monocytes % (Manual) 13 H, Eosinophils % (Manual) 2, Platelet Estimate Moderate increase, RBC Morphology Normal, PT 10.0 L, INR 0.92, D-Dimer 0.86 H, Sodium 139, Potassium 4.3, Chloride 105, Carbon Dioxide 27, Anion Gap 11.3, BUN 15, Creatinine 0.60, Estimated GFR 109, Est GFR ( Amer) 132, Glucose 156 H, Calcium 9.2, Total Bilirubin 0.3, AST 36, ALT 32, Alkaline Phosphatase 102, Total Creatine Kinase 31, Total Protein 7.5, Albumin 3.9, Globulin 3.6 H, Albumin/Globulin Ratio 1.1, Lipase 34, Serum HCG, Qual Negative, Acetone Level None detected 02/08/23 11:25: VBG pH 7.30 L, VBG pCO2 41.0, VBG pO2 55.7 H, VBG HCO3 19.9 L, VBG Total CO2 21.1 L, VBG O2 Saturation 89.6 H, VBG Base Excess -6.5 L 02/08/23 11:52: Urine Color [place], Urine Appearance Clear, Urine pH 5.0, Ur Specific [place] >= 1.030, Urine Protein 2+, Urine Glucose (UA) 1+, Urine Ketones Trace, Urine Blood Negative, Urine Nitrate Positive, Urine Bilirubin 2+ A, Urine Urobilinogen 4.0, Ur Leukocyte Esterase Trace, Urine RBC 3-5, Urine WBC 5-10, Ur Squamous Epith Cells 5-10, Urine Bacteria 1+, Urine Mucus Trace 02/08/23 12:00: Lactate 2.0 02/08/23 13:42: SARS-CoV-2 (PCR) Not detected, Influenza A Untype (PCR) Not detected, Influenza Type B (PCR) Not detected 02/08/23 15:57: POC Glucose 120 H 02/08/23 20:28: POC Glucose 149 H 02/09/23 05:58: POC Glucose 131 H 02/09/23 06:06: WBC 11.9 H D, RBC 4.08 L, Hgb 12.4 D, Hct 38.8, MCV 95.1, MCH 30.4, MCHC 32.0, RDW 14.0, Plt Count 509 H, MPV 9.0, Neut % (Auto) 40.7, Lymph % (Auto) 44.0, [place] % (Auto) 11.8 H, Eos % (Auto) 2.8, Baso % (Auto) 0.6, Neut # (Auto) 4.8, Lymph # (Auto) 5.2 H, [place] # (Auto) 1.4 H, Eos # (Auto) 0.3, Baso # (Auto) 0.1, Sodium 137, Potassium 3.8, Chloride 109 H, Carbon Dioxide 25, Anion Gap 6.8, BUN 9 D, Creatinine 0.50 L, Estimated Creat Clear 219, Estimated GFR 135, Est GFR ( Amer) 163 D, Glucose 132 H, Calcium 7.5 L I & O for Last 24 hours: Intake & Output 02/06/23 02/07/23 02/08/23 02/09/23 23:59 23:59 23:59 23:59 Intake Total 3290 / 4154 1584 / 1584 Output Total 0 / 0 0 / 0 Balance 3290 / 4154 1584 / 1584 Weight 98.543 kg 95.5 kg Constitutional Constitutional: no acute distress, obese and cooperative *Routine HEENT Exam Head: Present normocephalic and atraumatic Eye: Present EOMI and PERRL ENT: Present mucous membranes moist *Routine Neck Exam Neck: Present supple, full ROM and trachea midline; Absent JVD or lymphadenopathy *Routine Respiratory Exam Respiratory: Present CTA bilaterally, normal respiratory effort and symmetric chest movement; Absent respiratory distress *Routine Cardiovascular Exam Cardi[facility]
[2023-02-09 11:17] LABS: POC Glucose,Bedside 154 (70-110)
[2023-02-09 17:16] LABS: POC Glucose,Bedside 155 (70-110)
--- NOTE | 2023-02-09 17:29 | PC.NURSE ---
TIEN GARDNER came out, placed new 20G PIV in left hand
--- NOTE | 2023-02-09 19:49 | PC.NURSE ---
Pt O2 89% on RA, SALES REPRESENTATIVE ADVERTISING Notified, 2L of O2 applied.
[2023-02-09 20:49] LABS: POC Glucose,Bedside 205 (70-110)
[2023-02-10] VITALS: BP 115/64; PULSE 90; PULSE 94; RESP 16; TEMP 36.7; O2SAT 96
--- NOTE | 2023-02-10 03:51 | PC.NURSE ---
Pt is alert and oriented x4, Pt oxygen sat was 89% at the beginning of the shift , Notified Justino she recommended 2L of O2, Pt sats have been above 95% since. Pt is diabetic and has required 10 units of long acting insulin and 7 units of short acting insulin this shift, Pt has complained of mild to moderate pain which has been relieved with tylenol, Pt has slept for the most part of the shift. Pt has no other complaints or needs at this time.
[2023-02-10 04:00] VITALS: BP 125/70; PULSE 90; PULSE 96; RESP 18; TEMP 36.7; O2SAT 95; BMI 34.0
[2023-02-10 04:56] LABS: POC Glucose,Bedside 202 (70-110)
[2023-02-10 07:32] LABS: Basophils # 0.1 K/mm3 (0-0.2); Basophils % 0.6 % (0.1-2.0); Eosinophils # 0.3 K/mm3 (0.0-0.4); Eosinophils % 2.5 % (0.1-12.0); Hematocrit 37.8 % (37.0-47.0); Hemoglobin 12.4 g/dL (12.2-16.2); Lymphocytes # 4.7 K/mm3 (0.7-4.5); Lymphocytes % 38.9 % (10-50); Mean Corpuscular HGB Conc 32.8 g/dL (31.8-35.4); Mean Corpuscular Hemoglobin 31.1 pg (27.0-31.2); Mean Platelet Volume 8.9 fl (7.4-10.4); Monocytes # 1.5 K/mm3 (0.1-1.0); Monocytes % 12.6 % (1.7-9.3); Neutrophils # 5.5 K/mm3 (1.8-7.8); Neutrophils % 45.3 % (37.0-80.0); Platelet Count 481 K/mm3 (142-424); Red Blood Count 3.98 M/mm3 (4.20-5.40); Red Cell Distribution Width 14.2 % (11.5-17.5); White Blood Count 12.1 K/mm3 (4.8-10.8)
[2023-02-10 07:51] LABS: Hemoglobin A1C 8.9 % (4.0-6.0)
[2023-02-10 08:00] VITALS: BP 122/69; PULSE 80; PULSE 96; RESP 22; TEMP 36.7; O2SAT 95
--- NOTE | 2023-02-10 08:49 | EXP.DC.SUM ---
General Admission date:: 02/08/23 Discharge date: 02/10/23 HPI HPI HPI: This is a 42-year-old female who presents to [facility] emergency department with concerns of syncopal episode at work today. Her past medical history significant for diabetes, hypertension, depression and hyperlipidemia. She reports a recent diagnosis of COVID-19 treated as outpatient. She describes uncontrolled blood sugars over the last week or two. She reports a recent diagnosis of urinary tract infection and treated with oral antibiotic therapy. She started experiencing some nausea, vomiting and diarrhea over the last 24 hours. She reports no associated fever, chills, dyspnea or pain with inspiration. She reports a nonproductive croupy cough that has become intermittent and no associated hemoptysis. Her presenting ED vitals identified some tachycardia that improved with fluid resuscitation but no tachypnea, fever. She saturated appropriately on room air. Her laboratory studies identified a leukocytoses with normal electrolytes and creatinine. Her lactic acid was normal. Hospital Course Hospital Course Hospital Course: 42-year-old female that presents to [facility] emergency department with concerns of syncopal episode after experiencing COVID?19, UTI and recent gastroenteritis. Admitted for antibiotics for UTI and fluid rehydration. Had syncopal episode during admission. Evaluation of cardiology was benign. She is stable on room air and maintaining normal blood pressure. Stable for discharge home to complete antibiotic course. Problems addressed as follows: Episode of syncope Gastroenteritis Dehydration Developed syncopal event during admission. Was evaluated on telemetry with no abnormalities noted. Given IV fluids to volume resuscitate. Cardiology was consulted, recommend follow-up as outpatient. Episode likely vasovagal as it occurred while she was going to the bathroom. Continued supportive care during admission. No further episodes during admission. Echocardiogram obtained showing normal biventricular systolic function and no significant valvular stenosis or regurgitation. We will have patient follow-up with cardiology in 2 to 3 weeks. Event monitor for 2-week monitoring placed at discharge. Stable to discharge home with further management as an outpatient for her syncope. UTI IV fluid resuscitation. Started on IV Rocephin. Urine culture pending at discharge. Transitioned to cefdinir to complete 7 days total of antibiotics. Diabetes with hyperglycemia Routine blood sugar monitoring during admission. A1c obtained, 8.9 during admission. Treated with sliding scale and basal regimen during admission. Recommend increasing Toujeo to 66 units at discharge. Has close follow-up with endocrinology in the next few weeks. Would benefit from further adjustments to medications. Hypertension Routine blood pressure monitoring. Reduced dose beta-hailey Generalized anxiety disorder: Continue home regimen at discharge Exam Data for Last 24 hours Vital signs and Labs for Last 24 Hours: Temp Pulse Resp BP Pulse Ox O2 Del Method O2 Flow Rate 98.0 F 96 H 22 122/69 95 Nasal Cannula 2 02/10/23 08:00 02/10/23 08:00 02/10/23 08:00 02/10/23 08:00 02/10/23 08:00 02/10/23 08:00 02/10/23 08:00 Laboratory Results - last 24 hr 02/09/23 11:10: POC Glucose 154 H 02/09/23 17:03: POC Glucose 155 H 02/09/23 20:38: POC Glucose 205 H 02/10/23 04:48: POC Glucose 202 H 02/10/23 06:42: WBC 12.1 H, RBC 3.98 L, Hgb 12.4, Hct 37.8, MCV 95.0, MCH 31.1, MCHC 32.8, RDW 14.2, Plt Count 481 H, MPV 8.9, Neut % (Auto) 45.3, Lymph % (Auto) 38.9, [place] % (Auto) 12.6 H, Eos % (Auto) 2.5, Baso % (Auto) 0.6, Neut # (Auto) 5.5, Lymph # (Auto) 4.7 H, [place] # (Auto) 1.5 H, Eos # (Auto) 0.3, Baso # (Auto) 0.1, Hemoglobin A1c 8.9 H I & O for Last 24 hours: Intake & Output 02/07/23 02/08/23 02/09/23 02/10/23 23:59 23:59 23:59 23
--- NOTE | 2023-02-10 10:02 | HMH.PHAINT1 ---
Pharmacy Intervention Comments: DISCHARGE MEDICATION COUNSELING PROVIDED. DISCUSSED INCREASE ON TOUJEO FROM 62 TO 66 UNITS, STOP MACROBID, START CEFDINIR (ANTIBIOTIC, TWICE DAILY, START TONIGHT, N/V/D POSSIBLE, TAKE WITH FOOD). PATIENT VERBALIZED NO QUESTIONS AT THIS TIME.
[2023-02-10 12:00] VITALS: BP 140/67; PULSE 87; RESP 22; TEMP 36.8; O2SAT 95
[2023-02-10 12:05] LABS: POC Glucose,Bedside 211 (70-110)
--- NOTE | 2023-02-14 10:04 | CARE MANAGER ---
CM called and spoke with patient regarding recent discharge. 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 No concerns voiced at time of call.
== END 2023-02-10 12:31 | disposition home or self-care (01) ==
LOC: ER 13:43 → 2ND 16:22
PROVIDERS: Admitting Provider Family Medicine; Emergency Provider Emergency Medicine; Visit Provider Family Medicine
DX: R55 Syncope and collapse (principal); K52.9 Noninfective gastroenteritis and colitis, unspecified; E86.0 Dehydration; I10 Essential (primary) hypertension; E11.69 Type 2 diabetes mellitus with other specified complication; N39.0 Urinary tract infection, site not specified; F43.21 Adjustment disorder with depressed mood; Z79.4 Long term (current) use of insulin; Z79.899 Other long term (current) drug therapy
CPT/HCPCS: 36415; 70450; 71045; 80048; 80053; 81001; 82009; 82550; 82803; 82962; 83036; 83605; 83690; 84703; 85007; 85025; 85378; 85610; 87040; 87086; 87636; 93005; 93270; 93306; 99291; G0378; J0131; J0696; J2405

== ENCOUNTER 2023-03-08 16:00 | Emergency (ER) | payer BC, SELFPAY ==
[2023-03-08 16:18] VITALS: BP 143/88; PULSE 112; RESP 16; TEMP 37.4; O2SAT 96; BMI 33.2
--- NOTE | 2023-03-08 16:22 | XR_ITS ---
PROCEDURE INFORMATION: Exam: XR Chest Exam date and time: 03/08/2023 4:54 PM Age: 42 years old Clinical indication: Cough and shortness of breath; Additional info: Cough, SOA TECHNIQUE: Imaging protocol: Radiologic exam of the chest. Views: 1 view. COMPARISON: CR XR CHEST PORTABLE 02/08/2023 12:37 PM FINDINGS: Lungs: No lobar consolidation, pleural effusion or pulmonary edema. Subsegmental atelectasis right lung base. Pleural spaces: See Lungs finding. Heart/Mediastinum: Unremarkable. No cardiomegaly. Bones/joints: Unremarkable. IMPRESSION: No lobar consolidation, pleural effusion or pulmonary edema.
[2023-03-08 16:30] VITALS: BP 124/76; PULSE 108; O2SAT 97
[2023-03-08 16:31] LABS: Basophils # 0.2 K/mm3 (0-0.2); Basophils % 1.2 % (0.1-2.0); Eosinophils # 0.3 K/mm3 (0.0-0.4); Eosinophils % 1.6 % (0.1-12.0); Hematocrit 42.9 % (37.0-47.0); Hemoglobin 14.8 g/dL (12.2-16.2); Lymphocytes # 4.3 K/mm3 (0.7-4.5); Lymphocytes % 22.9 % (10-50); Mean Corpuscular HGB Conc 34.5 g/dL (31.8-35.4); Mean Corpuscular Hemoglobin 32.3 pg (27.0-31.2); Mean Corpuscular Volume 93.5 fl (81-99); Monocytes % 10.8 % (1.7-9.3); Neutrophils # 11.8 K/mm3 (1.8-7.8); Neutrophils % 63.5 % (37.0-80.0); Platelet Count 570 K/mm3 (142-424); Red Blood Count 4.59 M/mm3 (4.20-5.40); Red Cell Distribution Width 14.2 % (11.5-17.5); White Blood Count 18.6 K/mm3 (4.8-10.8)
[2023-03-08 16:36] LABS: Alanine Aminotransferase 29 U/L (12-78); Albumin Level 4.4 g/dl (3.5-5.0); Alkaline Phosphatase 144 U/L (38-126); Anion Gap 13.6 mEq/L (5-15); Aspartate Amino Transferase 36 U/L (14-36); Bilirubin,Total 0.2 mg/dl (0.2-1.3); Blood Urea Nitrogen 14 mg/dl (7-17); Calcium 9.3 mg/dl (8.4-10.2); Carbon Dioxide 27 mmol/L (22.0-30.0); Chloride 101 mmol/L (98-107); Creatinine Clearance Estimated 178 mL/min (50-200); Estimated Glomerular Filt Rate 109 ml/min (>60); GFR (African American) 132 ML/MIN (>60); Globulin 4.2 g/dL (1.3-3.2); Glucose 169 mg/dl (74-100); Potassium 3.6 mmoL/L (3.5-5.1); Sodium 138 mmol/L (136-145); Total Protein,Serum 8.6 g/dl (6.3-8.2)
[2023-03-08 16:37] LABS: MANUAL DIFFERENTIAL MANUAL DIFFERENTIAL (MANUAL DIFF)
--- NOTE | 2023-03-08 16:39 | ECG_ITS ---
APPROVED REPORT Exam: Resting ECG HR:106 bpm ECG Measurements Heart Rate 106 AXES DC 144 P 34 QRSd 97 QRS 59 QT 333 T 2 QTc 395 Conclusion SINUS TACHYCARDIA NONSPECIFIC T-WAVE ABNORMALITY ABNORMAL RHYTHM ECG UNCONFIRMED REPORT Electronically signed by : Raman Hopson MD 03/11/2023 08:42:04
--- NOTE | 2023-03-08 16:44 | PC.NURSE ---
patient ambulatory to restroom
[2023-03-08 16:51] LABS: HCG Qualitative, Serum Negative (Negative)
[2023-03-08 16:55] LABS: Influenza A, PCR Not Detected (NotDetected); Influenza B, PCR Not Detected (NotDetected)
[2023-03-08 16:55] LABS: Microscopic, Urine URINE MICROSCOPIC (MICROSCOPIC)
[2023-03-08 16:58] LABS: Lactic Acid 1.9 mmol/L (0.7-2.1)
[2023-03-08 16:58] LABS: Appearance,Urine CLOUDY (Clear); Bilirubin,Urine Negative (Negative); Blood, Urine Negative (Negative); Color,Urine YELLOW (Yellow); Glucose,Urine (UA) 1+ (Negative); Ketones,Urine Negative (Negative); Leukocyte Esterase,Urine Negative (Negative); Nitrate,Urine Negative (Negative); Protein,Urine Negative (Negative); Specific Gravity, Urine >= 1.030 (1.005-1.030); Urobilinogen,Urine 0.2 EU/dl (0.2)
--- NOTE | 2023-03-08 17:10 | HMH.EDGENADL ---
Discharge Plan Disposition Patient Disposition: Home, Self-Care Condition: Good Prescriptions Prescriptions: No Action gabapentin 300 mg capsule 300 mg PO DAILY PRN (Reason: Pain) bisoprolol fumarate 10 MG tablet 10 mg PO DAILY Auvelity 45-105 mg tablet, IR and ER, biphasic 1 tab PO BID ferrous sulfate [FeroSul] 325 mg (65 mg iron) tablet 325 mg PO Q48H Patient Comments: TAKE 1 TABLET BY MOUTH EVERY OTHER DAY cholecalciferol (vitamin D3) [Vitamin D3] 125 mcg (5,000 unit) Tablet 125 mcg PO DAILY diazepam 5 mg tablet 5 mg PO HSP PRN (Reason: anxiety) desvenlafaxine succinate [Pristiq] 100 mg tablet extended release 24 hr 100 mg PO DAILY Toujeo Max U-300 SoloStar 300 unit/mL (3 mL) insulin pen 66 unit SQ DAILY 30 Days Qty: 0 0RF atorvastatin 40 MG tablet 40 mg PO HS fenofibrate 160 mg tablet 160 mg PO DAILY Patient Comments: TAKE 1 TABLET BY MOUTH ONCE DAILY Mounjaro 5 mg/0.5 mL pen injector 5 mg SQ WEEKLY Patient Comments: INJECT 1 SYRINGE SUBCUTANEOUSLY ONCE A WEEK insulin lispro [Humalog KwikPen Insulin] 100 unit/mL insulin pen 20 unit SQ TID Referrals Follow up/Referrals: Diamond Kramer APRN [Primary Care Provider] - See instructions Activity Restrictions/Add. Instructions Additional Instructions/Restrictions: You were evaluated in the emergency department today. Please make sure that you are hydrating at home. Take Tylenol and ibuprofen at home as needed for pain and fever. Follow-up with your primary care provider over the next 3 days. Return to the emergency department for new or worsening symptoms. Clinical Impressions Clinical Impression: COVID-19, Leukocytosis, General weakness Stand Alone Forms Stand Alone Forms: Work/School Release Instructions Patient Instructions: DI for Muscle Weakness, DI for COVID-19 (Suspected or Confirmed ) Discharge ED Provider: Rhea Layne General Adult HPI General Chief complaint: Weakness Stated complaint: covid +, lethargic Time Seen by Provider: 03/08/23 16:15 Mode of Arrival: Wheelchair Source of Information: Patient Limitations: No Limitations Description of Symptoms (Recalled from ER Triage Doc. 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 pt reports that she has been feeling weak, nauseated, cough. pt did test positive for covid today and also on jan 28, feb 21. 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 Patient reports that she tested positive for COVID-19 today at work. She notes that this is the third time that she has tested positive for COVID since January 28. She states that she has had negative test in between her positive test. On medical record review, she was admitted here to the hospital on 02/08 for similar symptoms and concerns for possible sepsis, but blood cultures were negative at that time the patient was subsequently discharged home. She denies take any medications prior to arrival for her symptoms. Related Data Home Medications Medication Instructions Recorded Confirmed atorvastatin 40 mg tablet 40 mg PO HS Cholesterol 01/22/20 03/08/23 bisoprolol fumarate 10 mg tablet 10 mg PO DAILY High blood pressure 10/02/20 03/08/23 fenofibrate 160 mg tablet 160 mg PO DAILY Cholesterol 01/16/22 03/08/23 insulin lispro 100 unit/mL 20 unit SQ TID Diabetes 05/28/22 03/08/23 subcutaneous pen (Humalog KwikPen (U-100) Insulin) tirzepatide 5 mg/0.5 mL 5 mg SQ WEEKLY Weight Loss 05/28/22 03/08/23 subcutaneous pen injector (Ashley) cholecalciferol (vitamin D3) 125
[2023-03-08 17:15] LABS: Procalcitonin 0.048 ng/mL (0.0-2.0)
[2023-03-08 17:21] LABS: Bacteria,Urine 2+ /lpf; WBC,Urine Occasional #/hpf (0-3)
[2023-03-08 17:24] LABS: Coronavirus 19, PCR Detected (NotDetected)
[2023-03-08 17:48] LABS: Eosinophils % 1 % (0-3); Lymphocytes % 27 % (10-50); Monocytes % 2 % (2-9); Neutrophils % 70 % (42-76); Platelet Estimate Moderate Increase; RBC Morphology Normal; Total Cells Counted 100
[2023-03-08 18:06] LABS: Erythrocyte Sedimentation Rate 17 mm/hr (0-20)
--- NOTE | 2023-03-08 20:05 | PC.NURSE ---
PATIENT OBSERVATION ADMISSION TO 211 WITH DX OF COVID TO SERVICE OF THE HOSPITALIST.
--- NOTE | 2023-03-08 20:19 | PC.NURSE ---
Hospitalist Bc in room speaking with pt
--- NOTE | 2023-03-08 20:35 | PC.NURSE ---
Hospitalist done speaking with pt, pt agreeable for discharge
[2023-03-08 20:43] VITALS: BP 112/69; PULSE 99; RESP 18; TEMP 36.8; O2SAT 95
--- NOTE | 2023-03-11 05:10 | PC.NURSE ---
Critical Culture result reported to documenting RN from Tennille King from LAB. Patient's Anaerobic blood culture shows Gram+ Cocci. Critical culture sheet completed per protocol and will be completed by day shift charge accounts audit clerk.
== END 2023-03-08 20:51 | disposition home or self-care (01) ==
LOC: ER 20:02 → 2ND 20:21 → ER 20:43
PROVIDERS: Emergency Provider Emergency Medicine; PCP Nurse Practitioner Family
DX: U07.1 COVID-19 (principal); R78.81 Bacteremia; B95.4 Other streptococcus as the cause of diseases classified elsewhere; B95.7 Other staphylococcus as the cause of diseases classified elsewhere; R00.0 Tachycardia, unspecified; R51.9 Headache, unspecified; R07.0 Pain in throat; R05.9 Cough, unspecified; R09.81 Nasal congestion; R42 Dizziness and giddiness; E11.9 Type 2 diabetes mellitus without complications; I10 Essential (primary) hypertension; E78.5 Hyperlipidemia, unspecified; F41.1 Generalized anxiety disorder; Z79.4 Long term (current) use of insulin
CPT/HCPCS: 71045; 80053; 81001; 83605; 84145; 84703; 85007; 85025; 85651; 87040; 87086; 87636; 93005; 96361; 96374; 96375; 99285; J0131; J2405

== ENCOUNTER 2023-03-11 23:55 | Emergency (ER) | payer BC, SELFPAY ==
[2023-03-11 23:56] VITALS: BP 132/84; PULSE 94; RESP 20; TEMP 36.7; O2SAT 95; BMI 32.9
--- NOTE | 2023-03-11 23:58 | XR_ITS ---
PROCEDURE INFORMATION: Exam: XR Chest Exam date and time: 03/12/2023 12:09 AM Age: 42 years old Clinical indication: Shortness of breath; Additional info: ROD Martinez TECHNIQUE: Imaging protocol: Radiologic exam of the chest. Views: 1 view. COMPARISON: CR XR CHEST PORTABLE 03/08/2023 4:54 PM FINDINGS: Lungs: Stable right mid lung scarring or atelectasis. No consolidation. Pleural spaces: Unremarkable. No pleural effusion. No pneumothorax. Heart/Mediastinum: Unremarkable. No cardiomegaly. Bones/joints: Unremarkable. IMPRESSION: No acute pulmonary findings.
[2023-03-12 00:29] VITALS: BP 124/77; PULSE 81; O2SAT 94
[2023-03-12 00:30] LABS: Basophils # 0.2 K/mm3 (0-0.2); Basophils % 1.7 % (0.1-2.0); Eosinophils # 0.6 K/mm3 (0.0-0.4); Hematocrit 38.5 % (37.0-47.0); Hemoglobin 13.1 g/dL (12.2-16.2); Lymphocytes # 4.8 K/mm3 (0.7-4.5); Lymphocytes % 33.3 % (10-50); Mean Corpuscular Hemoglobin 31.6 pg (27.0-31.2); Mean Corpuscular Volume 93.1 fl (81-99); Mean Platelet Volume 8.4 fl (7.4-10.4); Monocytes # 1.5 K/mm3 (0.1-1.0); Monocytes % 10.5 % (1.7-9.3); Neutrophils # 7.2 K/mm3 (1.8-7.8); Neutrophils % 50.5 % (37.0-80.0); Platelet Count 503 K/mm3 (142-424); Red Blood Count 4.14 M/mm3 (4.20-5.40); White Blood Count 14.3 K/mm3 (4.8-10.8)
[2023-03-12 00:31] LABS: Chloride 102 mmol/L (98-107); Potassium 3.3 mmoL/L (3.5-5.1); Sodium 141 mmol/L (136-145)
[2023-03-12 00:34] LABS: Alanine Aminotransferase 33 U/L (12-78); Alkaline Phosphatase 143 U/L (38-126); Anion Gap 10.3 mEq/L (5-15); Aspartate Amino Transferase 47 U/L (14-36); Bilirubin,Total 0.2 mg/dl (0.2-1.3); Blood Urea Nitrogen 10 mg/dl (7-17); Calcium 8.6 mg/dl (8.4-10.2); Carbon Dioxide 32 mmol/L (22.0-30.0); Creatinine Clearance Estimated 177 mL/min (50-200); Estimated Glomerular Filt Rate 109 ml/min (>60); GFR (African American) 132 ML/MIN (>60); Glucose 103 mg/dl (74-100)
[2023-03-12 00:35] LABS: Lactic Acid 1.1 mmol/L (0.7-2.1)
--- NOTE | 2023-03-12 00:47 | HMH.EDGENADL ---
Discharge Plan Disposition Patient Disposition: Home, Self-Care Prescriptions Prescriptions: New benzonatate 100 mg capsule 100 mg PO Q6H PRN (Reason: cough) Qty: 30 0RF No Action gabapentin 300 mg capsule 300 mg PO DAILY PRN (Reason: Pain) bisoprolol fumarate 10 MG tablet 10 mg PO DAILY Auvelity 45-105 mg tablet, IR and ER, biphasic 1 tab PO BID ferrous sulfate [FeroSul] 325 mg (65 mg iron) tablet 325 mg PO Q48H Patient Comments: TAKE 1 TABLET BY MOUTH EVERY OTHER DAY cholecalciferol (vitamin D3) [Vitamin D3] 125 mcg (5,000 unit) Tablet 125 mcg PO DAILY diazepam 5 mg tablet 5 mg PO HSP PRN (Reason: anxiety) desvenlafaxine succinate [Pristiq] 100 mg tablet extended release 24 hr 100 mg PO DAILY Toujeo Max U-300 SoloStar 300 unit/mL (3 mL) insulin pen 66 unit SQ DAILY 30 Days Qty: 0 0RF atorvastatin 40 MG tablet 40 mg PO HS fenofibrate 160 mg tablet 160 mg PO DAILY Patient Comments: TAKE 1 TABLET BY MOUTH ONCE DAILY Mounjaro 5 mg/0.5 mL pen injector 5 mg SQ WEEKLY Patient Comments: INJECT 1 SYRINGE SUBCUTANEOUSLY ONCE A WEEK insulin lispro [Humalog KwikPen Insulin] 100 unit/mL insulin pen 20 unit SQ TID Referrals Follow up/Referrals: Diamond Kramer APRN [Primary Care Provider] - See instructions Activity Restrictions/Add. Instructions Additional Instructions/Restrictions: Please take Tessalon Perles as needed for cough. Please follow-up with your primary care provider. Please return to the emergency department if you develop any new or worsening symptoms or become concerned for your health. Clinical Impressions Clinical Impression: Acute viral syndrome, Cough, Acute hypokalemia Discharge ED Provider: Wayne Flower General Adult HPI General Chief complaint: Recheck/Abnormal Lab/Rx Stated complaint: lab recheck Time Seen by Provider: 03/11/23 23:57 Mode of Arrival: Ambulatory Source of Information: Patient Limitations: No Limitations Description of Symptoms (Recalled from ER Triage Doc. by RN): Patient states that she came in due to being told she had a positive blood culture when she was in ED. History of Present Illness HPI narrative: 42-year-old female, history of type 2 diabetes, insulin-dependent, history of splenectomy presents to the ER after being called for positive blood culture. She was seen here 3 days ago with upper respiratory symptoms and tachycardia. She was diagnosed with COVID and was discharged in stable condition. Her blood culture resulted +2-1/2 days later in 1 bottle with gram-positive cocci. She reports that she has had multiple URIs in the last month, has been diagnosed with COVID multiple times, but has had negative swabs in between. She denies any current urinary symptoms. When I discussed her positive blood culture over the phone, she reported that she is continuing to feel bad, having fevers, cough, headaches, body aches etc. Given this, patient was called back in. Patient reports that she is taking azithromycin that was prescribed by her PCP. She reports that she picked up a prescription for Macrobid for possible UTI that was prescribed by her PCP after review of the ED records. On my review of the ED records, patient has 2+ bacteria, but nitrite negative, no white blood cells. Patient also has a negative urine culture. Given she had no urinary symptoms, I do not feel that those results were consistent with UTI. We will recheck while she is here. Related Data Home Medications Medication Instructions Recorded Confirmed atorvastatin 40 mg tablet 40 mg PO HS Cholesterol 01/22/20 03/12/23 bisoprolol fumarate 10 mg tablet 10 mg PO DAILY High blood pressure 10/02/20 03/12/23 fenofibrate 160 mg tablet 160 mg PO DAILY Cholesterol 01/16/22 03/12/23 insulin lispro 100 unit/mL 20 unit SQ TID Diabetes 05/28/22 03/12/23 subcutaneous pen (Humalog KwikPen (U-100) Insulin) elvia
[2023-03-12 00:48] VITALS: BP 129/80; PULSE 87; O2SAT 94
[2023-03-12 00:50] VITALS: BP 119/84
[2023-03-12 00:51] LABS: Procalcitonin 0.053 ng/mL (0.0-2.0)
[2023-03-12 01:00] VITALS: BP 115/73; PULSE 82; O2SAT 91
[2023-03-12 01:01] LABS: Microscopic, Urine URINE MICROSCOPIC (MICROSCOPIC)
[2023-03-12 01:02] LABS: Appearance,Urine SL CLOUDY (Clear); Bilirubin,Urine Negative (Negative); Blood, Urine Negative (Negative); Color,Urine YELLOW (Yellow); Glucose,Urine (UA) Negative (Negative); Ketones,Urine Negative (Negative); Leukocyte Esterase,Urine Negative (Negative); Nitrate,Urine Negative (Negative); Protein,Urine Negative (Negative); Urobilinogen,Urine 0.2 EU/dl (0.2)
[2023-03-12 01:20] VITALS: BP 114/61; PULSE 85; O2SAT 93
[2023-03-12 01:20] LABS: Bacteria,Urine 1+ /lpf
[2023-03-12 02:27] VITALS: BP 125/82; PULSE 69; RESP 16; TEMP 36.8; O2SAT 96
== END 2023-03-12 02:28 | disposition home or self-care (01) ==
PROVIDERS: Emergency Provider Emergency Medicine; PCP Nurse Practitioner Family
DX: U07.1 COVID-19 (principal); R05.9 Cough, unspecified; E87.6 Hypokalemia; E11.9 Type 2 diabetes mellitus without complications; R00.0 Tachycardia, unspecified; Z79.4 Long term (current) use of insulin
CPT/HCPCS: 71045; 80053; 81001; 83605; 84145; 85025; 87040; 87086; 96360; 96361; 96374; 99285

== ENCOUNTER 2023-03-13 17:43 | Observation (INO) | payer BC, SELFPAY ==
[2023-03-13 17:45] VITALS: BP 134/95; PULSE 79; RESP 17; TEMP 36.5; O2SAT 98; BMI 33.2
[2023-03-13 18:00] VITALS: BP 114/89; PULSE 64; RESP 22; O2SAT 96
--- NOTE | 2023-03-13 18:18 | XR_ITS ---
PROCEDURE INFORMATION: Exam: XR Chest Exam date and time: 03/13/2023 6:21 PM Age: 42 years old Clinical indication: Dyspnea TECHNIQUE: Imaging protocol: Radiologic exam of the chest. Views: 1 view. COMPARISON: CR XR CHEST PORTABLE 03/12/2023 12:09 AM FINDINGS: Lungs: Normal. Pleural spaces: Normal No pleural effusion. No pneumothorax. Heart/Mediastinum: Normal. No cardiomegaly. Bones/joints: Unremarkable. IMPRESSION: No acute findings.
--- NOTE | 2023-03-13 18:24 | HMH.EDGENADL ---
Discharge Plan Disposition Patient Disposition: Admitted Prescriptions Prescriptions: No Action gabapentin 300 mg capsule 300 mg PO DAILY PRN (Reason: Pain) bisoprolol fumarate 10 MG tablet 10 mg PO DAILY Auvelity 45-105 mg tablet, IR and ER, biphasic 1 tab PO BID ferrous sulfate [FeroSul] 325 mg (65 mg iron) tablet 325 mg PO Q48H Patient Comments: TAKE 1 TABLET BY MOUTH EVERY OTHER DAY cholecalciferol (vitamin D3) [Vitamin D3] 125 mcg (5,000 unit) Tablet 125 mcg PO DAILY diazepam 5 mg tablet 5 mg PO HSP PRN (Reason: anxiety) desvenlafaxine succinate [Pristiq] 100 mg tablet extended release 24 hr 100 mg PO DAILY Toujeo Max U-300 SoloStar 300 unit/mL (3 mL) insulin pen 66 unit SQ DAILY 30 Days Qty: 0 0RF atorvastatin 40 MG tablet 40 mg PO HS fenofibrate 160 mg tablet 160 mg PO DAILY Patient Comments: TAKE 1 TABLET BY MOUTH ONCE DAILY Mounjaro 5 mg/0.5 mL pen injector 5 mg SQ WEEKLY Patient Comments: INJECT 1 SYRINGE SUBCUTANEOUSLY ONCE A WEEK insulin lispro [Humalog KwikPen Insulin] 100 unit/mL insulin pen 20 unit SQ TID benzonatate 100 mg capsule 100 mg PO Q6H PRN (Reason: cough) Qty: 30 0RF Referrals Follow up/Referrals: Diamond Kramer APRN [Primary Care Provider] - See instructions Clinical Impressions Clinical Impression: Fever, Asplenia, Bacteremia Discharge ED Provider: Catrachita Mistry General Adult HPI General Chief complaint: Fever Stated complaint: covid symptoms, Time Seen by Provider: 03/13/23 18:06 History of Present Illness HPI narrative: Patient is a 42-year-old female with a 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 She presents with 5 days of persistently elevated temperature greater than 100.4 most recently 102 earlier today and another fever greater than 100.4 despite Tylenol and ibuprofen. This is her third ED visit during this illness she was initially diagnosed with COVID and she has had some respiratory symptoms however she is not improving from that standpoint. Additionally she had blood cultures that were drawn on March 08 which were positive for staph epi and strep mitis. These were presumed to be possibly contaminants and the patient was sent back home and follow back up with her primary care doctor today with persistent symptoms and her primary care Dr. Fields called me. Given the fact that the patient was persistently febrile and not feeling well and had a questionably positive blood culture in the setting of asplenia Decided collectively to advised the patient to return to the emergency department for the purpose of being admitted and getting IV antibiotics until her blood cultures are clear and there is a clearm diagnosis that is improving. Related Data Home Medications Medication Instructions Recorded Confirmed atorvastatin 40 mg tablet 40 mg PO HS Cholesterol 01/22/20 03/12/23 bisoprolol fumarate 10 mg tablet 10 mg PO DAILY High blood pressure 10/02/20 03/12/23 fenofibrate 160 mg tablet 160 mg PO DAILY Cholesterol 01/16/22 03/12/23 insulin lispro 100 unit/mL 20 unit SQ TID Diabetes 05/28/22 03/12/23 subcutaneous pen (Humalog KwikPen (U-100) Insulin) tirzepatide 5 mg/0.5 mL 5 mg SQ WEEKLY Weight Loss 05/28/22 03/12/23 subcutaneous pen injector (Ashley) cholecalciferol (vitamin D3) 125 125 mcg PO DAILY Supplement 02/08/23 03/12/23 mcg (5,000 unit) tablet (Vitamin D3) desvenlafaxine succinate 100 mg 100 mg PO DAILY Mood 02/08/23 03/12/23 tablet,extended release 24 hr (Pristiq) dextromethorphan IR 45 1 tab PO BID Depression 02/08/23 03/12/23 mg-bupropion ER 105 mg biphasic tablet (Auvelity) diazepam 5 mg tablet 5 mg PO HSP PRN anxiety 02/08/23 03/12/23 ferrous sulfate 325 mg (65 mg 325 mg PO Q48H Supplement 02/08/23 03/12/23 iron) tablet (FeroSul) gabapentin 300 mg capsul
[2023-03-13 18:27] LABS: Basophils # 0.3 K/mm3 (0-0.2); Basophils % 1.8 % (0.1-2.0); Chloride 103 mmol/L (98-107); Eosinophils # 0.5 K/mm3 (0.0-0.4); Eosinophils % 3.7 % (0.1-12.0); Hematocrit 42.2 % (37.0-47.0); Hemoglobin 14.3 g/dL (12.2-16.2); Lymphocytes # 6.2 K/mm3 (0.7-4.5); Lymphocytes % 42.2 % (10-50); Mean Corpuscular HGB Conc 33.8 g/dL (31.8-35.4); Mean Corpuscular Volume 94.4 fl (81-99); Mean Platelet Volume 8.4 fl (7.4-10.4); Monocytes # 1.3 K/mm3 (0.1-1.0); Monocytes % 8.7 % (1.7-9.3); Neutrophils # 6.4 K/mm3 (1.8-7.8); Neutrophils % 43.5 % (37.0-80.0); Platelet Count 523 K/mm3 (142-424); Red Blood Count 4.47 M/mm3 (4.20-5.40); Red Cell Distribution Width 14.1 % (11.5-17.5); White Blood Count 14.7 K/mm3 (4.8-10.8)
[2023-03-13 18:28] LABS: Potassium 3.4 mmoL/L (3.5-5.1); Sodium 141 mmol/L (136-145)
[2023-03-13 18:30] VITALS: BP 128/83; PULSE 81; RESP 22; O2SAT 99
[2023-03-13 18:30] LABS: Alanine Aminotransferase 34 U/L (12-78); Aspartate Amino Transferase 39 U/L (14-36); Blood Urea Nitrogen 11 mg/dl (7-17); Creatinine Clearance Estimated 153 mL/min (50-200); Estimated Glomerular Filt Rate 91 ml/min (>60); GFR (African American) 111 ML/MIN (>60)
[2023-03-13 18:31] LABS: Albumin Level 4.2 g/dl (3.5-5.0); Albumin/Globulin Ratio 1.1 (1.1-1.8); Alkaline Phosphatase 147 U/L (38-126); Anion Gap 6.4 mEq/L (5-15); Bilirubin,Total 0.1 mg/dl (0.2-1.3); Carbon Dioxide 35 mmol/L (22.0-30.0); Glucose 92 mg/dl (74-100); Total Protein,Serum 8.2 g/dl (6.3-8.2)
[2023-03-13 18:32] LABS: Lactic Acid 1.2 mmol/L (0.7-2.1)
[2023-03-13 18:36] LABS: Monoscreen (Rapid) Negative (Negative)
--- NOTE | 2023-03-13 18:36 | PC.NURSE ---
lab at bedside
--- NOTE | 2023-03-13 18:42 | PC.NURSE ---
notified dry house attendant of admission
--- NOTE | 2023-03-13 19:18 | EXP.HP ---
History of Present Illness *Admission Date: 03/13/23 *Reason for visit:: Bacteremia *History of present illness: 42 year old female presented to the ED for the third time since 03/08/23. PMHX of DM, HTN, HLD, and Asplenia. She presents with c/o fever for the past five days. She tested positive for COVID on 03/08/23. She also tested positive in January but reports a negative test in between times. She was sent to the ED by her PCP for her continuos c/o fever, cough, and body aches. Her blood cultures obtained on 03/08/23 came back positive for streptococcus mitis and staphylococcus epidermidis. Her ED workup revealed and leukocytosis of 14.7, hypokalemia of 3.4, and her chest xray was unremarkable. She was started on IV Rocephin and Vancomycin. She has two additional sets of blood cultures pending. The ED physician consulted the hospitalist team for further medical management. I admitted the pt to the medical floor. She arrives in no acute distress. She will continue broad spectrum antibiotic coverage and receive symptomatic treatment for COVID. [facility] Disclaimer: The information contained in this section may have been updated after the patient was seen, as this information can be updated by other users. Medical History (Updated 03/13/23 @ 19:19 by VIOLET Mccracken) Depression Diabetes mellitus, type 2 Generalized anxiety disorder Hyperlipidemia Hypertension Migraine Surgical History History of appendectomy History of cholecystectomy History of splenectomy Family History Mother FHx: mental illness Father Diabetes Grandfather Diabetes Grandmother Cancer Social History Smoking Status: Never smoker second hand exposure: No alcohol intake: never substance use type: denies use current occupational status: employed and other details: she is in the process of getting a job; she is interviewing Travel in the last 8 weeks: None adopted: No caregiver/support person: Yes (she takes care of her grand-daughter) foster care: No household members: spouse housing: house marital status: number of children: 1 number of grandchildren: 1 education level: high school service: No shelter: No current occupation: [employer] current occupational exposures/hazards: No Hx Recent Travel: No sexually active: Yes caffeine: Yes physical activity: none working smoke detector in home: Yes fire extinguisher in home: Yes carbon monox detector in home: No firearms in home: Yes firearms unloaded and locked: Yes do you feel safe at home: Yes victim of physical abuse: No victim of emotional abuse: No victim of sexual abuse: No Review of Systems *Cardiovascular Cardiovascular: Reports system reviewed and no additional complaints, except as documented and Reports dyspnea *Respiratory Respiratory: Reports chest congestion, Reports cough and Reports dyspnea *Gastrointestinal Gastrointestinal: Reports system reviewed and no additional complaints, except as documented *Genitourinary Genitourinary: Reports system reviewed and no additional complaints, except as documented *Musculoskeletal Musculoskeletal: Reports muscle weakness *Neurologic Neurologic: Reports system reviewed and no additional complaints, except as documented Meds Home Medications and Allergies Home Medications Medication Instructions Recorded Confirmed Type atorvastatin 40 mg tablet 40 mg PO HS Cholesterol 01/22/20 03/12/23 History bisoprolol fumarate 10 mg tablet 10 mg PO DAILY High blood pressure 10/02/20 03/12/23 History fenofibrate 160 mg tablet 160 mg PO DAILY Cholesterol 01/16/22 03/12/23 History insulin lispro 100 unit/mL 20 unit SQ TID Diabetes 05/28/22 03/12/23 History subcutaneous pen (Humalog KwikPen (U-100) Insulin) pushpa
--- NOTE | 2023-03-13 19:34 | PC.NURSE ---
Attempted to call report, pt has not been assigned a nurse yet. Transferred to charge Tennille COLLINS. States she will have 2nd floor nurse call for reports as soon as she can.
[2023-03-13 20:00] VITALS: BP 141/94; PULSE 76; RESP 20; TEMP 36.7; O2SAT 99
[2023-03-13 20:04] LABS: Hemoglobin A1C 8.5 % (4.0-6.0)
[2023-03-13 20:13] LABS: Procalcitonin 0.036 ng/mL (0.0-2.0)
[2023-03-13 20:14] VITALS: BP 138/88; PULSE 74; RESP 20; TEMP 36.5; O2SAT 95
--- NOTE | 2023-03-13 20:20 | PC.NURSE ---
pt arrived to the floor via wheelchair @20:16
[2023-03-13 20:29] VITALS: BMI 32.8
[2023-03-13 23:01] LABS: Microscopic, Urine URINE MICROSCOPIC (MICROSCOPIC)
[2023-03-13 23:05] LABS: Appearance,Urine CLEAR (Clear); Bilirubin,Urine Negative (Negative); Blood, Urine Negative (Negative); Color,Urine YELLOW (Yellow); Glucose,Urine (UA) Negative (Negative); Ketones,Urine Negative (Negative); Leukocyte Esterase,Urine TRACE (Negative); Nitrate,Urine Negative (Negative); PH,Urine 7.5 (5.0-8.5); Protein,Urine Negative (Negative); Specific Gravity, Urine 1.015 (1.005-1.030); Urobilinogen,Urine 0.2 EU/dl (0.2)
[2023-03-13 23:51] LABS: Squamous Epithelial Cell,Urine Occasional #/hpf (0-5); WBC,Urine Occasional #/hpf (0-3)
[2023-03-14] VITALS (8 sets, daily range): BP systolic 115–150; BP diastolic 64–95; PULSE 56–84; RESP 16–20; TEMP 36.5–37.1; O2SAT 91–97
[2023-03-14 03:13] LABS: POC Glucose,Bedside 138 (70-110)
[2023-03-14 03:13] LABS: POC Glucose,Bedside 77 (70-110)
[2023-03-14 03:13] LABS: POC Glucose,Bedside 52 (70-110)
[2023-03-14 03:13] LABS: POC Glucose,Bedside 79 (70-110)
[2023-03-14 06:24] LABS: Basophils # 0.2 K/mm3 (0-0.2); Basophils % 1.2 % (0.1-2.0); Eosinophils # 0.5 K/mm3 (0.0-0.4); Eosinophils % 3.6 % (0.1-12.0); Hematocrit 40.4 % (37.0-47.0); Hemoglobin 13.5 g/dL (12.2-16.2); Lymphocytes # 6.2 K/mm3 (0.7-4.5); Lymphocytes % 43.6 % (10-50); Mean Corpuscular HGB Conc 33.3 g/dL (31.8-35.4); Mean Corpuscular Hemoglobin 31.3 pg (27.0-31.2); Mean Corpuscular Volume 93.9 fl (81-99); Mean Platelet Volume 8.3 fl (7.4-10.4); Monocytes # 1.5 K/mm3 (0.1-1.0); Monocytes % 10.7 % (1.7-9.3); Neutrophils # 5.8 K/mm3 (1.8-7.8); Neutrophils % 40.8 % (37.0-80.0); Platelet Count 526 K/mm3 (142-424); Red Blood Count 4.31 M/mm3 (4.20-5.40); Red Cell Distribution Width 14.1 % (11.5-17.5); White Blood Count 14.2 K/mm3 (4.8-10.8)
[2023-03-14 06:27] LABS: Anion Gap 12.3 mEq/L (5-15); Blood Urea Nitrogen 8 mg/dl (7-17); Calcium 9.1 mg/dl (8.4-10.2); Carbon Dioxide 30 mmol/L (22.0-30.0); Chloride 100 mmol/L (98-107); Creatinine Clearance Estimated 177 mL/min (50-200); Estimated Glomerular Filt Rate 109 ml/min (>60); GFR (African American) 132 ML/MIN (>60); Glucose 94 mg/dl (74-100); Potassium 3.3 mmoL/L (3.5-5.1); Sodium 139 mmol/L (136-145)
[2023-03-14 06:27] LABS: POC Glucose,Bedside 86 (70-110)
[2023-03-14 06:27] LABS: POC Glucose,Bedside 87 (70-110)
--- NOTE | 2023-03-14 08:42 | HMH.PHAINT1 ---
Pharmacy Intervention Comments: Med reconciliation completed with external fill history and list from md office
[2023-03-14 09:26] LABS: Adenovirus,PCR Not Detected (NotDetected); Coronavirus 229E Not Detected (NotDetected); Coronavirus NL63 Not Detected (NotDetected); Coronavirus OC43 Not Detected (NotDetected); Coronovirus HKU1,PCR Not Detected (NotDetected); Human Metapneumovirus Not Detected (NotDetected); Influenza A, PCR Not Detected (NotDetected); Influenza AH1, 2009 Not Detected (NotDetected); Influenza AH1, PCR Not Detected (NotDetected); Influenza AH3,PCR Not Detected (NotDetected); Influenza B, PCR Not Detected (NotDetected); Parainfluenza 1, PCR Not Detected (NotDetected); Parainfluenza 2, PCR Not Detected (NotDetected); Parainfluenza 3, PCR Not Detected (NotDetected); Parainfluenza 4, PCR Not Detected (NotDetected); Respiratory Syncytial Virus Not Detected (NotDetected); Rhinovirus/Enterovirus Not Detected (NotDetected)
[2023-03-14 11:21] LABS: Coronavirus 19, PCR Detected (NotDetected)
[2023-03-14 11:30] LABS: POC Glucose,Bedside 113 (70-110)
--- NOTE | 2023-03-14 14:00 | EXP.PHA.CONS ---
Pharmacy Consult Date: 03/14/23 Time: 14:01 Referring provider: DR. DAVIS Reason for Consult:: VANCOMYCIN DOSING Allergies Allergy/AdvReac Type Severity Reaction Status Date / Time No Known Allergies Allergy Verified 03/05/23 09:03 Home Medications Medication Instructions Recorded Confirmed Type atorvastatin 40 mg tablet 40 mg PO DAILY Cholesterol 01/22/20 03/13/23 History bisoprolol fumarate 10 mg tablet 10 mg PO DAILY High blood pressure 10/02/20 03/13/23 History fenofibrate 160 mg tablet 160 mg PO DAILY Cholesterol 01/16/22 03/13/23 History insulin lispro 100 unit/mL 20 unit SQ TID Diabetes 05/28/22 03/13/23 History subcutaneous pen (Humalog KwikPen (U-100) Insulin) cholecalciferol (vitamin D3) 125 125 mcg PO DAILY Supplement 02/08/23 03/13/23 History mcg (5,000 unit) tablet (Vitamin D3) desvenlafaxine succinate 100 mg 100 mg PO DAILY Mood 02/08/23 03/13/23 History tablet,extended release 24 hr (Pristiq) dextromethorphan IR 45 1 tab PO BID Depression 02/08/23 03/13/23 History mg-bupropion ER 105 mg biphasic tablet (Auvelity) diazepam 5 mg tablet 5 mg PO HSP PRN anxiety 02/08/23 03/14/23 History ferrous sulfate 325 mg (65 mg 325 mg PO Q48H Supplement 02/08/23 03/13/23 History iron) tablet (FeroSul) gabapentin 300 mg capsule 300 mg PO HS 03/05/23 03/14/23 History benzonatate 100 mg capsule 100 mg PO Q6H PRN cough #30 caps 03/12/23 03/13/23 Rx insulin glargine U-300 conc 300 62 unit SQ DAILY Diabetes 03/13/23 03/13/23 History unit/mL (3 mL) subcutaneous pen (Toujeo Max U-300 SoloStar) albuterol sulfate 90 mcg/actuation 2 puff inhalation Q4HP PRN 03/14/23 03/14/23 History aerosol inhaler shortness of air or wheezing fluconazole 200 mg tablet 200 mg PO WEEKLY fungal infection 03/14/23 03/14/23 History nitrofurantoin 100 mg PO BID Infection 03/14/23 03/14/23 History monohydrate/macrocrystals 100 mg capsule tirzepatide 7.5 mg/0.5 mL 7.5 mg SQ WEEKLY Weight 03/14/23 03/14/23 History subcutaneous pen injector Loss/Diabetes (Ashley) New Prescriptions to Start Prescriptions: Height: 1.68 m Weight: 92.669 kg Laboratory Results:: Laboratory Results - last 24 hr 03/13/23 09:00: Chlamy pneumoniae PCR TNP, Adenovirus (PCR) Not detected, B. pertussis DNA (PCR) TNP, Coronavirus OC43 (PCR) Not detected, Coronavirus HKU1 (PCR) Not detected, Coronavirus 229E (PCR) Not detected, SARS-CoV-2 (PCR) Detected A, Coronavirus NL63 (PCR) Not detected, Human Metapneumovir PCR Not detected, Influenza A (H1) PCR Not detected, Influ A (H1N1/09) PCR Not detected, Influenza A (H3) PCR Not detected, Influenza Type A (PCR) Not detected, Influenza Type B (PCR) Not detected, M. pneumoniae (PCR) TNP, Parainfluenza 1 (PCR) Not detected, Parainfluenza 2 (PCR) Not detected, Parainfluenza 3 (PCR) Not detected, Parainfluenza 4 (PCR) Not detected, RSV (PCR) Not detected, Entero/Rhino (PCR) Not detected 03/13/23 16:00: Procalcitonin 0.036 03/13/23 18:00: WBC 14.7 H, RBC 4.47, Hgb 14.3, Hct 42.2, MCV 94.4, MCH 32.0 H, MCHC 33.8, RDW 14.1, Plt Count 523 H, MPV 8.4, Neut % (Auto) 43.5, Lymph % (Auto) 42.2, Carbon % (Auto) 8.7, Eos % (Auto) 3.7, Baso % (Auto) 1.8, Neut # (Auto) 6.4, Lymph # (Auto) 6.2 H, Carbon # (Auto) 1.3 H, Eos # (Auto) 0.5 H, Baso # (Auto) 0.3 H, Sodium 141, Potassium 3.4 L, Chloride 103, Carbon Dioxide 35 H, Anion Gap 6.4, BUN 11, Creatinine 0.70, Estimated Creat Clear 153, Estimated GFR 91, Est GFR ( Amer) 111, Glucose 92, Hemoglobin A1c 8.5 H, Lactate 1.2, Calcium 9.0, Magnesium 2.0, Total Bilirubin 0.1 L, AST 39 H, ALT 34, Alkaline Phosphatase 147 H, Total Protein 8.2, Albumin 4.2, Globulin 4.0 H, Albumin/Globulin Ratio 1.1, Monoscreen Negative 03/13/23 20:22: POC Glucose 77 03/13/23 20:38: POC Glucose 79 03/13/23 22:48: POC Glucose 138 H 03/13/23 22:58: Urine Color Yellow, Urine Appearance Clear, Urine pH 7.5, Ur Specific [place] 1.015, Urine Protein Negative, Urine Glucose (UA) Negative, Ur
--- NOTE | 2023-03-14 16:15 | EXP.PN ---
Subjective *Date: 03/14/23 *Time: 16:17 Interval history: Patient was seen and evaluated at the bedside. denies chest pain, shortness of breath, nausea, vomiting, abdominal pain. Patient does not have any complaints at this time. feels better overall Exam Data for Last 24 hours Vital signs and Labs for Last 24 Hours: Temp Pulse Resp BP Pulse Ox O2 Del Method 98.0 F 66 17 116/79 97 Room Air 03/14/23 15:32 03/14/23 15:32 03/14/23 15:32 03/14/23 15:32 03/14/23 15:32 03/14/23 15:32 Laboratory Results - last 24 hr 03/13/23 09:00: Chlamy pneumoniae PCR TNP, Adenovirus (PCR) Not detected, B. pertussis DNA (PCR) TNP, Coronavirus OC43 (PCR) Not detected, Coronavirus HKU1 (PCR) Not detected, Coronavirus 229E (PCR) Not detected, SARS-CoV-2 (PCR) Detected A, Coronavirus NL63 (PCR) Not detected, Human Metapneumovir PCR Not detected, Influenza A (H1) PCR Not detected, Influ A (H1N1/09) PCR Not detected, Influenza A (H3) PCR Not detected, Influenza Type A (PCR) Not detected, Influenza Type B (PCR) Not detected, M. pneumoniae (PCR) TNP, Parainfluenza 1 (PCR) Not detected, Parainfluenza 2 (PCR) Not detected, Parainfluenza 3 (PCR) Not detected, Parainfluenza 4 (PCR) Not detected, RSV (PCR) Not detected, Entero/Rhino (PCR) Not detected 03/13/23 16:00: Procalcitonin 0.036 03/13/23 18:00: WBC 14.7 H, RBC 4.47, Hgb 14.3, Hct 42.2, MCV 94.4, MCH 32.0 H, MCHC 33.8, RDW 14.1, Plt Count 523 H, MPV 8.4, Neut % (Auto) 43.5, Lymph % (Auto) 42.2, Rankin % (Auto) 8.7, Eos % (Auto) 3.7, Baso % (Auto) 1.8, Neut # (Auto) 6.4, Lymph # (Auto) 6.2 H, Rankin # (Auto) 1.3 H, Eos # (Auto) 0.5 H, Baso # (Auto) 0.3 H, Sodium 141, Potassium 3.4 L, Chloride 103, Carbon Dioxide 35 H, Anion Gap 6.4, BUN 11, Creatinine 0.70, Estimated Creat Clear 153, Estimated GFR 91, Est GFR ( Amer) 111, Glucose 92, Hemoglobin A1c 8.5 H, Lactate 1.2, Calcium 9.0, Magnesium 2.0, Total Bilirubin 0.1 L, AST 39 H, ALT 34, Alkaline Phosphatase 147 H, Total Protein 8.2, Albumin 4.2, Globulin 4.0 H, Albumin/Globulin Ratio 1.1, Monoscreen Negative 03/13/23 20:22: POC Glucose 77 03/13/23 20:38: POC Glucose 79 03/13/23 22:48: POC Glucose 138 H 03/13/23 22:58: Urine Color Yellow, Urine Appearance Clear, Urine pH 7.5, Ur Specific [place] 1.015, Urine Protein Negative, Urine Glucose (UA) Negative, Urine Ketones Negative, Urine Blood Negative, Urine Nitrate Negative, Urine Bilirubin Negative, Urine Urobilinogen 0.2, Ur Leukocyte Esterase Trace, Urine RBC None, Urine WBC Occasional, Ur Squamous Epith Cells Occasional, Urine Bacteria None 03/14/23 02:57: POC Glucose 52 L 03/14/23 03:32: POC Glucose 87 03/14/23 05:27: WBC 14.2 H, RBC 4.31, Hgb 13.5, Hct 40.4, MCV 93.9, MCH 31.3 H, MCHC 33.3, RDW 14.1, Plt Count 526 H, MPV 8.3, Neut % (Auto) 40.8, Lymph % (Auto) 43.6, Rankin % (Auto) 10.7 H, Eos % (Auto) 3.6, Baso % (Auto) 1.2, Neut # (Auto) 5.8, Lymph # (Auto) 6.2 H, Rankin # (Auto) 1.5 H, Eos # (Auto) 0.5 H, Baso # (Auto) 0.2, Sodium 139, Potassium 3.3 L, Chloride 100, Carbon Dioxide 30, Anion Gap 12.3, BUN 8 D, Creatinine 0.60, Estimated Creat Clear 177, Estimated GFR 109, Est GFR ( Amer) 132, Glucose 94, Calcium 9.1 03/14/23 06:14: POC Glucose 86 03/14/23 11:19: POC Glucose 113 H I & O for Last 24 hours: Intake & Output 03/11/23 03/12/23 03/13/23 03/14/23 23:59 23:59 23:59 23:59 Intake Total 950 / 950 Output Total 0 / 0 Balance 950 / 950 Weight 92.669 kg 92.669 kg Constitutional Constitutional: no acute distress *Routine HEENT Exam Head: Present normocephalic Eye: Present EOMI and PERRL ENT: Present mucous membranes moist *Routine Neck Exam Neck: Present supple; Absent lymphadenopathy *Routine Respiratory Exam Respiratory: Present CTA bilaterally *Routine Cardiovascular Exam Cardiovascular: Present RRR *Routine Abdominal Exam Abdominal: Present soft and normoactive bowel sounds; Absent tenderness *Routine Extremities Exam Extremities: Absent cyanosis, clubbing or edema
--- NOTE | 2023-03-14 16:16 | EXP.HP ---
History of Present Illness *Admission Date: 03/13/23 *History of present illness: 42 year old female presented to the ED for the third time since 03/08/23. PMHX of DM, HTN, HLD, and Asplenia. She presents with c/o fever for the past five days. She tested positive for COVID on 03/08/23. She also tested positive in January but reports a negative test in between times. She was sent to the ED by her PCP for her continuos c/o fever, cough, and body aches. Her blood cultures obtained on 03/08/23 came back positive for streptococcus mitis and staphylococcus epidermidis. Her ED workup revealed and leukocytosis of 14.7, hypokalemia of 3.4, and her chest xray was unremarkable. She was started on IV Rocephin and Vancomycin. She has two additional sets of blood cultures pending. The ED physician consulted the hospitalist team for further medical management. I admitted the pt to the medical floor. She arrives in no acute distress. She will continue broad spectrum antibiotic coverage and receive symptomatic treatment for COVID. [facility] Disclaimer: The information contained in this section may have been updated after the patient was seen, as this information can be updated by other users. Medical History (Updated 03/13/23 @ 19:19 by VIOLET Mccracken) Depression Diabetes mellitus, type 2 Generalized anxiety disorder Hyperlipidemia Hypertension Migraine Surgical History History of appendectomy History of cholecystectomy History of splenectomy Family History Mother FHx: mental illness Father Diabetes Grandfather Diabetes Grandmother Cancer Social History Smoking Status: Never smoker second hand exposure: No alcohol intake: never substance use type: denies use current occupational status: employed and other details: she is in the process of getting a job; she is interviewing Travel in the last 8 weeks: None adopted: No caregiver/support person: Yes (she takes care of her grand-daughter) foster care: No household members: spouse housing: house marital status: number of children: 1 number of grandchildren: 1 education level: high school service: No long term: No 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 current occupational exposures/hazards: No Hx Recent Travel: No sexually active: Yes caffeine: Yes physical activity: none working smoke detector in home: Yes fire extinguisher in home: Yes carbon monox detector in home: No firearms in home: Yes firearms unloaded and locked: Yes do you feel safe at home: Yes victim of physical abuse: No victim of emotional abuse: No victim of sexual abuse: No Review of Systems *Neurologic Neurologic: Reports system reviewed and no additional complaints, except as documented Meds Home Medications and Allergies Home Medications Medication Instructions Recorded Confirmed Type atorvastatin 40 mg tablet 40 mg PO DAILY Cholesterol 01/22/20 03/13/23 History bisoprolol fumarate 10 mg tablet 10 mg PO DAILY High blood pressure 10/02/20 03/13/23 History fenofibrate 160 mg tablet 160 mg PO DAILY Cholesterol 01/16/22 03/13/23 History insulin lispro 100 unit/mL 20 unit SQ TID Diabetes 05/28/22 03/13/23 History subcutaneous pen (Humalog KwikPen (U-100) Insulin) cholecalciferol (vitamin D3) 125 125 mcg PO DAILY Supplement 02/08/23 03/13/23 History mcg (5,000 unit) tablet (Vitamin D3) desvenlafaxine succinate 100 mg 100 mg PO DAILY Mood 02/08/23 03/13/23 History tablet,extended release 24 hr (Pristiq) dextromethorphan IR 45 1 tab PO BID Depression 02/08/23 03/13/23 History mg-bupropion ER 105 mg biphasic tablet (Auvelity) diazepam 5 mg tablet 5 mg PO HSP PRN anxiety 02/08/23 03/14/23 History ferrous sulfate 325 mg (65 mg 325 mg PO Q48H Supplement
--- NOTE | 2023-03-14 16:19 | PC.NURSE ---
blood culture results showed staphylococcus epidermidis and streptococcus mitisloralis group, pt was admitted and given cefepime, vancomycin and rocephin during stay, MD Gonsalez aware of bc results. No further action at this time per MD Flower
[2023-03-14 17:10] LABS: POC Glucose,Bedside 139 (70-110)
[2023-03-14 23:51] LABS: POC Glucose,Bedside 134 (70-110)
[2023-03-15] VITALS: BP 126/64; PULSE 60; RESP 16; TEMP 36.8; O2SAT 92
[2023-03-15 04:00] VITALS: BP 127/70; PULSE 68; RESP 16; TEMP 36.5; O2SAT 91; BMI 32.8
[2023-03-15 06:10] LABS: POC Glucose,Bedside 120 (70-110)
[2023-03-15 08:00] VITALS: BP 141/90; PULSE 78; RESP 17; TEMP 36.7; O2SAT 93
[2023-03-15 08:22] LABS: Anion Gap 12.5 mEq/L (5-15); Blood Urea Nitrogen 12 mg/dl (7-17); Carbon Dioxide 25 mmol/L (22.0-30.0); Chloride 102 mmol/L (98-107); Creatinine Clearance Estimated 177 mL/min (50-200); Estimated Glomerular Filt Rate 109 ml/min (>60); GFR (African American) 132 ML/MIN (>60); Glucose 144 mg/dl (74-100); Potassium 4.5 mmoL/L (3.5-5.1); Sodium 135 mmol/L (136-145)
[2023-03-15 08:44] LABS: Vancomycin,Trough 27.6 ug/mL (5.0-10.0)
--- NOTE | 2023-03-15 08:51 | PC.NURSE ---
Igor in pharmacy notified of vanc trough result of 27.6
--- NOTE | 2023-03-15 09:02 | EXP.PHA.CONS ---
Pharmacy Consult Date: 03/15/23 Time: 09:11 Referring provider: DR DAVIS Reason for Consult:: VANCOMYCIN TROUGH LEVEL OBTAINED. Allergies Allergy/AdvReac Type Severity Reaction Status Date / Time No Known Allergies Allergy Verified 03/05/23 09:03 Home Medications Medication Instructions Recorded Confirmed Type atorvastatin 40 mg tablet 40 mg PO DAILY Cholesterol 01/22/20 03/13/23 History bisoprolol fumarate 10 mg tablet 10 mg PO DAILY High blood pressure 10/02/20 03/13/23 History fenofibrate 160 mg tablet 160 mg PO DAILY Cholesterol 01/16/22 03/13/23 History insulin lispro 100 unit/mL 20 unit SQ TID Diabetes 05/28/22 03/13/23 History subcutaneous pen (Humalog KwikPen (U-100) Insulin) cholecalciferol (vitamin D3) 125 125 mcg PO DAILY Supplement 02/08/23 03/13/23 History mcg (5,000 unit) tablet (Vitamin D3) desvenlafaxine succinate 100 mg 100 mg PO DAILY Mood 02/08/23 03/13/23 History tablet,extended release 24 hr (Pristiq) dextromethorphan IR 45 1 tab PO BID Depression 02/08/23 03/13/23 History mg-bupropion ER 105 mg biphasic tablet (Auvelity) diazepam 5 mg tablet 5 mg PO HSP PRN anxiety 02/08/23 03/14/23 History ferrous sulfate 325 mg (65 mg 325 mg PO Q48H Supplement 02/08/23 03/13/23 History iron) tablet (FeroSul) gabapentin 300 mg capsule 300 mg PO HS 03/05/23 03/14/23 History benzonatate 100 mg capsule 100 mg PO Q6H PRN cough #30 caps 03/12/23 03/13/23 Rx insulin glargine U-300 conc 300 62 unit SQ DAILY Diabetes 03/13/23 03/13/23 History unit/mL (3 mL) subcutaneous pen (Toujeo Max U-300 SoloStar) albuterol sulfate 90 mcg/actuation 2 puff inhalation Q4HP PRN 03/14/23 03/14/23 History aerosol inhaler shortness of air or wheezing fluconazole 200 mg tablet 200 mg PO WEEKLY fungal infection 03/14/23 03/14/23 History nitrofurantoin 100 mg PO BID Infection 03/14/23 03/14/23 History monohydrate/macrocrystals 100 mg capsule tirzepatide 7.5 mg/0.5 mL 7.5 mg SQ WEEKLY Weight 03/14/23 03/14/23 History subcutaneous pen injector Loss/Diabetes (Ashley) New Prescriptions to Start Prescriptions: Height: 1.68 m Weight: 92.76 kg Laboratory Results:: Laboratory Results - last 24 hr 03/13/23 09:00: Chlamy pneumoniae PCR TNP, Adenovirus (PCR) Not detected, B. pertussis DNA (PCR) TNP, Coronavirus OC43 (PCR) Not detected, Coronavirus HKU1 (PCR) Not detected, Coronavirus 229E (PCR) Not detected, SARS-CoV-2 (PCR) Detected A, Coronavirus NL63 (PCR) Not detected, Human Metapneumovir PCR Not detected, Influenza A (H1) PCR Not detected, Influ A (H1N1/09) PCR Not detected, Influenza A (H3) PCR Not detected, Influenza Type A (PCR) Not detected, Influenza Type B (PCR) Not detected, M. pneumoniae (PCR) TNP, Parainfluenza 1 (PCR) Not detected, Parainfluenza 2 (PCR) Not detected, Parainfluenza 3 (PCR) Not detected, Parainfluenza 4 (PCR) Not detected, RSV (PCR) Not detected, Entero/Rhino (PCR) Not detected 03/14/23 11:19: POC Glucose 113 H 03/14/23 16:52: POC Glucose 139 H 03/14/23 22:19: POC Glucose 134 H 03/15/23 05:46: POC Glucose 120 H 03/15/23 07:51: Sodium 135 L, Potassium 4.5 D, Chloride 102, Carbon Dioxide 25, Anion Gap 12.5, BUN 12 D, Creatinine 0.60, Estimated Creat Clear 177, Estimated GFR 109, Est GFR ( Amer) 132, Glucose 144 H, Calcium 9.0, Vancomycin Trough 27.6 H Medical History: Medical History (Updated 03/13/23 @ 19:19 by VIOLET Mccracken) Depression Diabetes mellitus, type 2 Generalized anxiety disorder Hyperlipidemia Hypertension Migraine Assessment and Plan Assessment and plan all Dx Assessment and Plan for all problems:: Pharmacokinetic dosing service Weight: 92.76 Kilograms Vancomycin single level analysis: Current dose being given: 1500 mg Current dosing interval: 8 hrs Current infusion time (hrs): 2 Single level Trough Data: Trough level obtained: 20.7 mcg/ml Timing of trough - # of hrs before next dose: 0.5 Hrs Desired pe
[2023-03-15 13:11] LABS: HBsAg Screen Negative (Negative); HCV Ab Non Reactive (Non Reactive); HIV Screen 4th Generation wRfx Non Reactive (Non Reactive); Hep A Ab, IGM Negative (Negative); Hep B Core Ab, IgM Negative (Negative)
--- NOTE | 2023-03-16 16:24 | CARE MANAGER ---
Called and spoke with patient regarding recent discharge. Patient stated that she has started new medication and is doing well. No concerns at time of call. She is aware of scheduled f/u appts.
--- NOTE | 2023-04-01 16:45 | EXP.DC.SUM ---
General Admission date:: 03/13/23 Discharge date: 03/15/23 HPI HPI HPI: 42 year old female presented to the ED for the third time since 03/08/23. She presents with c/o fever for the past five days. She tested positive for COVID on 03/08/23. She also tested positive in January but reports a negative test in between times. She was sent to the ED by her PCP for her continuos c/o fever, cough, and body aches. Her blood cultures obtained on 03/08/23 came back positive for streptococcus mitis and staphylococcus epidermidis. Her ED workup revealed and leukocytosis of 14.7, hypokalemia of 3.4, and her chest xray was unremarkable. She was started on IV Rocephin and Vancomycin. She has two additional sets of blood cultures pending. The ED physician consulted the hospitalist team for further medical management. I admitted the pt to the medical floor. She arrives in no acute distress. She will continue broad spectrum antibiotic coverage and receive symptomatic treatment for COVID. Plan as to follow: mg q hr PRN as needed for cough Hospital Course Hospital Course Hospital Course: Patient is a 42-year-old female who presented to hospital due to fever. Patient has past medical history of splenectomy, diabetes mellitus, hypertension hyperlipidemia. Assessment Bacteremia COVID-19 Hypokalemia Hypertension Hyperlipidemia Diabetes mellitus DC on PO abx, Patient was seen and evaluated at the bedside on the day of discharge. Patient is stable for discharge. Patient wishes to be discharged. All patient questions were answered and patient was given time to ask questions. Patient was discharged in stable condition. Patient understands that she can return to ER in case of any sudden changes in health. Total time spent on DC - 38 mins Exam Data for Last 24 hours Vital signs and Labs for Last 24 Hours: Temp Pulse Resp BP Pulse Ox O2 Del Method 98.1 F 78 17 141/90 H 93 L Room Air 03/15/23 08:00 03/15/23 08:00 03/15/23 08:00 03/15/23 08:00 03/15/23 08:00 03/15/23 09:00 Constitutional Constitutional: no acute distress *Routine HEENT Exam Head: Present normocephalic Eye: Present EOMI and PERRL ENT: Present mucous membranes moist *Routine Neck Exam Neck: Present supple; Absent lymphadenopathy *Routine Respiratory Exam Respiratory: Present CTA bilaterally *Routine Cardiovascular Exam Cardiovascular: Present RRR *Routine Abdominal Exam Abdominal: Present soft and normoactive bowel sounds; Absent tenderness *Routine Extremities Exam Extremities: Absent cyanosis, clubbing or edema *Routine Skin Exam Skin: Present warm; Absent rash *Routine Neurological Exam Neurological: Present alert and oriented X3 DS: Diagnosis Discharge Diagnosis (1) Bacteremia: Status: Inactive Code(s): R78.81 - Bacteremia (2) COVID-19: Status: Inactive Code(s): U07.1 - COVID-19 (3) Diabetes mellitus: Status: Inactive Code(s): E11.9 - Type 2 diabetes mellitus without complications Qualifiers: Diabetes mellitus complication status: with other specified complication Diabetes mellitus detention insulin use: unspecified detention insulin use status Diabetes mellitus type: type 2 Qualified Code(s): E11.69 - Type 2 diabetes mellitus with other specified complication (4) Acute hypokalemia: Status: Inactive Code(s): E87.6 - Hypokalemia (5) Hypertension: Status: Inactive Code(s): I10 - Essential (primary) hypertension (6) Hyperlipidemia: Status: Inactive Code(s): E78.5 - Hyperlipidemia, unspecified (7) Generalized anxiety disorder: Status: Inactive Code(s): F41.1 - Generalized anxiety disorder Meds Home Medications and Allergies Home Medications Medication Instructions Recorded Confirmed Type atorvastatin 40 mg tablet 40 mg PO DAILY Cholesterol 01/22/20 03/13/23 History bisoprolol fumarate 10 mg tablet 10 mg PO DAILY High blood pressure
== END 2023-03-15 10:36 | disposition home or self-care (01) ==
LOC: ER 18:28 → 2ND 18:49
PROVIDERS: Nurse Practitioner Critical Care Medicine; Admitting Provider Internal Medicine; Emergency Provider Student in an Organized Health Care Education/Training Program; PCP Nurse Practitioner Family; Visit Provider Internal Medicine
DX: U07.1 COVID-19 (principal); E11.69 Type 2 diabetes mellitus with other specified complication; E87.6 Hypokalemia; I10 Essential (primary) hypertension; E78.5 Hyperlipidemia, unspecified; F41.1 Generalized anxiety disorder; Z79.4 Long term (current) use of insulin; Z79.899 Other long term (current) drug therapy; R78.81 Bacteremia
CPT/HCPCS: 36415; 71045; 80048; 80053; 80074; 80202; 81001; 82962; 83036; 83605; 83735; 84145; 85025; 86318; 86703; 87040; 87632; 87635; 94640; 99285; G0378; G0432; J0696; J3370

== ENCOUNTER 2023-06-06 18:57 | Observation (INO) | payer BC, SELFPAY ==
[2023-06-06 18:59] VITALS: BP 127/74; PULSE 98; RESP 18; TEMP 36.7; O2SAT 98; BMI 33.0
--- NOTE | 2023-06-06 19:15 | PC.NURSE ---
Pt arrived in the ER and states she feels like her Glucose is low. Checked and it is at 54. Pt given a sandwich and drank some juice. and RN aware. CR
--- NOTE | 2023-06-06 19:58 | ED_ITS ---
Discharge Plan Disposition Patient Disposition: Admitted Prescriptions Prescriptions: No Action Auvelity 45-105 mg tablet, IR and ER, biphasic 1 tab PO BID Qty: 60 2RF diazepam [Valium] 10 mg tablet 10 mg PO HS PRN (Reason: anxiety) Qty: 30 2RF gabapentin 300 mg capsule 300 mg PO HS bisoprolol fumarate 10 MG tablet 10 mg PO DAILY ferrous sulfate [FeroSul] 325 mg (65 mg iron) tablet 325 mg PO Q48H Patient Comments: TAKE 1 TABLET BY MOUTH EVERY OTHER DAY cholecalciferol (vitamin D3) [Vitamin D3] 125 mcg (5,000 unit) Tablet 125 mcg PO DAILY desvenlafaxine succinate [Pristiq] 100 mg tablet extended release 24 hr 100 mg PO DAILY atorvastatin 40 MG tablet 40 mg PO DAILY fenofibrate 160 mg tablet 160 mg PO DAILY Patient Comments: TAKE 1 TABLET BY MOUTH ONCE DAILY insulin lispro [Humalog KwikPen Insulin] 100 unit/mL insulin pen 20 unit SQ TID benzonatate 100 mg capsule 100 mg PO Q6H PRN (Reason: cough) Qty: 30 0RF Toujeo Max U-300 SoloStar 300 unit/mL (3 mL) insulin pen 62 unit SQ DAILY fluconazole 200 mg tablet 200 mg PO WEEKLY Patient Comments: TAKE 1 TABLET BY MOUTH ON DAY ONE, REPEAT EVERY 7 DAYS albuterol sulfate 90 mcg/actuation HFA aerosol inhaler 2 puff inhalation Q4HP PRN (Reason: shortness of air or wheezing) Patient Comments: INHALE 1 TO 2 PUFFS BY MOUTH EVERY 4 HOURS NEEDED FOR SHORTNESS OF AIR OR WHEEZING Mounjaro 7.5 mg/0.5 mL pen injector 7.5 mg SQ WEEKLY Patient Comments: INJECT 7.5MG SUBCUTANEOUSLY ONCE A WEEK levofloxacin 500 mg tablet 500 mg PO DAILY Qty: 7 0RF Referrals Follow up/Referrals: Provider,Referral, MD [Primary Care Provider] - See instructions Clinical Impressions Clinical Impression: Hypoglycemia, COVID-19, Light headed, Headache Instructions Patient Instructions: DI for Hyperglycemia -- Adult Discharge ED Provider: Catrachita Mistry General Adult HPI General Chief complaint: Hyper/Hypoglycemia Stated complaint: COVID Pos , Sugar is low Time Seen by Provider: 06/06/23 19:50 Mode of Arrival: Ambulatory Source of Information: Patient Limitations: No Limitations Description of Symptoms (Recalled from ER Triage Doc. by RN): c/o lightheaded, fever, SANTOYO, aches and weakness with glucose reading have been low and high, last reading in the 50s she was able to eat some PB before arrival. Test positive for covid Sunday History of Present Illness HPI narrative: Patient is a 42-year-old female present today with headache body aches lightheadedness recent diagnosis of COVID just a few days ago. States she is primarily here for the lightheadedness and a headache. Has taken Tylenol and ibuprofen at home most recently Motrin 2 hours prior to arrival and Tylenol about 6 hours prior to that. Denies any meningismus photophobia change in mental status etc. No respiratory symptoms. No abdominal pain. States that her blood sugar has been difficult to control she is on insulin it has been low some and as high as 300. Last A1c was in the sixes. Related Data Home Medications Medication Instructions Recorded Confirmed atorvastatin 40 mg tablet 40 mg PO DAILY Cholesterol 01/22/20 05/16/23 bisoprolol fumarate 10 mg tablet 10 mg PO DAILY High blood pressure 10/02/20 05/16/23 fenofibrate 160 mg tablet 160 mg PO DAILY Cholesterol 01/16/22 05/16/23 insulin lispro 100 unit/mL 20 unit SQ TID Diabetes 05/28/22 05/16/23 subcutaneous pen (Humalog KwikPen (U-100) Insulin) cholecalciferol (vitamin D3) 125 125 mcg PO DAILY Supplement 02/08/23 05/16/23 mcg (5,000 unit) tablet (Vitamin D3) desvenlafaxine succinate 100 mg 100 mg PO DAILY Mood 02/08/23 05/16/23 tablet,extended release 24 hr (Pristiq) ferrous sulfate 325 mg (65 mg 325 mg PO Q48H Supplement 02/08/23 05/16/23 iron) tablet (FeroSul) gabapentin 300 mg capsule 300 mg PO HS 03/05/23 05/16/23 insulin glargine U-300 conc 300 62 unit SQ DAILY Diabetes 03/13/23 05/16/23 unit/mL (3 mL) subcutaneous pen (Toujeo Max U-300 SoloStar) albuterol sulfate 90 mcg/actuation 2 puff inhalation Q4HP PRN 03/14/23 05/16/23 aerosol inhaler shortness of air or wheezing fluconazole 200 mg tablet 200 mg PO WEEKLY fungal infection 03/14/23 05/16/23 tirzepatide 7.5 mg/0.5 mL 7.5 mg SQ WEEKLY Weight 03/14/23 05/16/23 subcutaneous pen injector Loss/Diabetes (Ashley) Previous Rx's Medication Instructions Recorded benzonatate 100 mg capsule 100 mg PO Q6H PRN cough #30 caps 03/12/23 levofloxacin 500 mg tablet 500 mg PO DAILY #7 tabs 03/15/23 dextromethorphan IR 45 1 tab PO BID Depression #60 ea 05/07/23 mg-bupropion ER 105 mg biphasic tablet (Auvelity) diazepam 10 mg tablet (Valium) 10 mg PO HS PRN anxiety #30 tabs 05/07/23 Allergies Allergy/AdvReac Type Severity Reaction Status Date / Time No Known Allergies Allergy Verified 05/16/23 13:58 [facility] Disclaimer: The information contained in this section may have been updated after the patient was seen, as this information can be updated by other users. Medical History (Updated 06/06/23 @ 21:17 by Catrachita Mistry MD) Acute hypokalemia Acute viral syndrome Acute viral syndrome Asplenia Bacteremia Cough COVID-19 Depression Diabetes mellitus Diabetes mellitus, type 2 Fever Gastroenteritis General weakness Generalized anxiety disorder Grief Hyperlipidemia Hypertension Leukocytosis Migraine Type 2 diabetes mellitus Surgical History History of appendectomy History of cholecystectomy History of splenectomy Family History Mother FHx: mental illness Father Diabetes Grandfather Diabetes Grandmother Cancer Social History Smoking Status: Never smoker second hand exposure: No alcohol intake: never substance use type: denies use current occupational status: employed and other details: she is in the process of getting a job; she is interviewing Travel in the last 8 weeks: None adopted: No caregiver/support person: Yes (she takes care of her grand-daughter) foster care: No household members: spouse housing: house marital status: number of children: 1 number of grandchildren: 1 education level: high school service: No prison: No 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 current occupational exposures/hazards: No Hx Recent Travel: No sexually active: Yes caffeine: Yes physical activity: none working smoke detector in home: Yes fire extinguisher in home: Yes carbon monox detector in home: No firearms in home: Yes firearms unloaded and locked: Yes do you feel safe at home: Yes victim of physical abuse: No victim of emotional abuse: No victim of sexual abuse: No ROS Obtained: Yes All systems reviewed & no additional complaints except as documented Physical Exam General General appearance: alert Chest Chest inspection: Present normal inspection and symmetric chest wall rise Respiratory Respiratory exam: Present normal lung sounds bilaterally; Absent respiratory distress Cardiovascular Cardiovascular exam: Present tachycardia (Heart rate 120 on my exam) Neurological Exam Neurological exam: Present alert, oriented X3, CN II-XII intact and normal gait; Absent motor sensory deficit Medical Decision Making Solo Inquiry Pt receiving controlled substance: No Vital Signs: 06/06/23 18:59 Temperature 98.1 F Temperature Source Oral Pulse Rate [Left Radial] 98 H Respiratory Rate 18 Blood Pressure [Right Arm] 127/74 Blood Pressure Mean [Right Arm] 91 Blood Pressure Source [Right Arm] Automatic Cuff Blood Pressure Position [Right Arm] Sitting 02 Sat by Pulse Oximetry 98 Oxygen Delivery Method Room Air Lab Data Lab results reviewed: Yes I reviewed the patient's lab results. Lab Results 06/06/23 20:10: WBC 20.8 H*, RBC 4.54, Hgb 13.5, Hct 41.3, MCV 90.8, MCH 29.7, MCHC 32.7, RDW 14.5, Plt Count 567 H, MPV 8.1, Neut % (Auto) 43.7, Lymph % (Auto) 43.1, Dodge % (Auto) 10.0 H, Eos % (Auto) 1.9, Baso % (Auto) 1.3, Neut # (Auto) 9.1 H, Lymph # (Auto) 9.0 H, Dodge # (Auto) 2.1 H, Eos # (Auto) 0.4, Baso # (Auto) 0.3 H, Total Counted 100, Neutrophils % (Manual) 48, Lymphocytes % (Manual) 37, Atypical Lymphs % 5.0, Monocytes % (Manual) 7, Eosinophils % (Manual) 3, Platelet Estimate Slight increase, RBC Morphology Normal, Sodium 140, Potassium 3.2 L, Chloride 107, Carbon Dioxide 25, Anion Gap 11.2, BUN 15, Creatinine 0.70, Estimated Creat Clear 152, Estimated GFR 91, Est GFR ( Amer) 111, Glucose 37 L*, Calcium 9.6, Total Bilirubin 0.3, AST 31, ALT 28, Alkaline Phosphatase 111, Troponin I < 0.01, Total Protein 8.2, Albumin 4.2, Globulin 4.0 H, Albumin/Globulin Ratio 1.1 06/06/23 20:10 06/06/23 20:10 Orders (Tests/Meds): ED MEDICATIONS Generic Name Dose Route Start Last Admin Trade Name Freq PRN Reason Stop Dose Admin Dextrose 50 ml 06/06/23 21:11 06/06/23 21:15 Dextrose 50% 50ml Syringe (Crash Cart) IVP 06/06/23 21:12 50 ml ONCE ONE Administration Dextrose/Lactated Ringer's 1,000 mls @ 125 mls/hr 06/06/23 21:15 Dextrose 5% In Lactated Ringer's 1000ml IV 07/06/23 21:14 .Q8H AURELIA Discontinued Medications Generic Name Dose Route Start Last Admin Trade Name Freq PRN Reason Stop Dose Admin Acetaminophen 1,000 mg 06/06/23 19:57 06/06/23 20:29 Acetaminophen 1,000mg/100ml Vial IV 06/06/23 19:58 1,000 mg ONCE ONE Administration Dextrose 25 ml 06/06/23 20:26 06/06/23 20:33 Dextrose 50% 50ml Syringe (Crash Cart) IVP 06/06/23 20:27 25 ml ONCE ONE Administration Diphenhydramine HCl 25 mg 06/06/23 19:57 06/06/23 20:31 Diphenhydramine 50mg/Ml Vial IV 06/06/23 19:58 25 mg ONCE ONE Administration Lactated Ringer's 1,000 mls @ 999 mls/hr 06/06/23 20:00 06/06/23 20:31 Lactated Ringer's 1000 Ml Bag IV 06/06/23 21:00 999 mls/hr .Q1H1M AURELIA Administration Prochlorperazine Edisylate 10 mg 06/06/23 19:57 06/06/23 20:31 Prochlorperazine 10mg/2ml Vial IV 06/06/23 19:58 10 mg ONCE ONE Administration ORDERS Category Date Time Status CBC w/Auto Diff [Complete Blood Count Auto Diff] Stat Lab 06/06/23 20:10 Completed CMP [Comprehensive Metabolic Panel] Stat Lab 06/06/23 20:10 Completed Trop I [Troponin I] Stat Lab 06/06/23 20:10 Completed Troponin I Q3H Lab 06/06/23 23:00 Ordered Troponin I Q3H Lab 06/07/23 02:00 Ordered ECG initial Besson Routine Y 06/06/23 20:09 Completed Medical Decision Narrative: Patient is a 42-year-old female with a recent diagnosis of COVID-19 here with headache lightheadedness body aches blood sugar. Will give a bolus of fluids migraine cocktail including Tylenol Compazine and Benadryl. Will check basic electrolytes and reassess. Overall she looks very good. From lightheadedness standpoint she has had no syncopal or near syncopal episodes. EKG will be performed to make sure that she does not have a significant arrhythmia. I will reassess after this initial workup is complete. Reassessment 9:17 PM patient's headache feeling much better however on serial glucose assessment she remains persistently hypoglycemic. Initially was in the 50s dropped into the 30s was given 25 mL of D50 without any significant improvement she was awake interactive normally and able to eat she has had juice peanut butter crackers and is persistently hypoglycemic again in the 30s. At this point she was given 50 mL of D50 and started on D5 LR infusion at 125 an hour. Will not be able to discharge her with this refractory hypoglycemia I spoke with Bc with hospital medicine who agreed to admit the patient for further evaluation and treatment. He does not appear to be septic. Does not have any respiratory symptoms at the moment. She does have a leukocytosis that is little worse than it has been in the past with a white blood cell count of 20 but otherwise does not tachycardic not tachypneic not febrile will not escalate NSAID workup regarding sepsis. She does have some hypokalemia but with the amount of foods that she recently ate we will see if that is corrected in the morning. Critical Care Critical Care Time Critical Care Time: Yes Attestation: On 06/06/23, the high probability of a clinically significant, sudden or life threatening deterioration of the following system(s) required my full and direct attention, intervention and personal management. The time I documented below is in addition to time spent performing reported procedures but includes the following listed in this critical care notation. Total Time Total Critical Care Time: 35
--- NOTE | 2023-06-06 20:09 | ECG_ITS ---
APPROVED REPORT Exam: Resting ECG HR:99 bpm ECG Measurements Heart Rate 99 AXES NJ 152 P 26 QRSd 96 QRS 8 QT 322 T 31 QTc 378 Conclusion SINUS RHYTHM NORMAL ECG UNCONFIRMED REPORT Electronically signed by : Raman Hopson MD 06/06/2023 21:44:24
[2023-06-06] MEDS: ACETAMINOPHEN 1,000MG/100ML VIAL 1000 MG IV (20:29)
--- NOTE | 2023-06-06 20:29 | PC.NURSE ---
Rounded on patient, patient provided with crackers and peanut butter at this time.
--- NOTE | 2023-06-06 20:30 | PC.NURSE ---
pt complaining of being hot and sweaty, states some dizziness too, Blood sugar rechecked 35. MD aware order noted, pt was sitting up eating crackers and peanut butter prior too.
[2023-06-06] MEDS: diphenhydrAMINE 50MG/ML VIAL 25 MG IV (20:31)
[2023-06-06] MEDS: LACTATED RINGERS 1000ML 1,000 ML 999 ML IV (20:31)
[2023-06-06] MEDS: PROCHLORPERAZINE 10MG/2ML VIAL 10 MG IV (20:31)
--- NOTE | 2023-06-06 20:32 | PC.NURSE ---
Pt felt like her BG waas low again. Rechecked pts Glucose. It is now 35. Pt given Dextrose by RN per Dr Mistry. CR
[2023-06-06] MEDS: DEXTROSE 50% 50ML SYRINGE (CRASH CART) 25 ML IVP (20:33)
[2023-06-06 20:36] LABS: Basophils # 0.3 K/mm3 (0-0.2); Basophils % 1.3 % (0.1-2.0); Eosinophils # 0.4 K/mm3 (0.0-0.4); Eosinophils % 1.9 % (0.1-12.0); Hematocrit 41.3 % (37.0-47.0); Hemoglobin 13.5 g/dL (12.2-16.2); Lymphocytes % 43.1 % (10-50); Mean Corpuscular HGB Conc 32.7 g/dL (31.8-35.4); Mean Corpuscular Hemoglobin 29.7 pg (27.0-31.2); Mean Corpuscular Volume 90.8 fl (81-99); Mean Platelet Volume 8.1 fl (7.4-10.4); Monocytes # 2.1 K/mm3 (0.1-1.0); Neutrophils # 9.1 K/mm3 (1.8-7.8); Neutrophils % 43.7 % (37.0-80.0); Platelet Count 567 K/mm3 (142-424); Red Blood Count 4.54 M/mm3 (4.20-5.40); Red Cell Distribution Width 14.5 % (11.5-17.5); White Blood Count 20.8 K/mm3 (4.8-10.8)
[2023-06-06 20:39] LABS: MANUAL DIFFERENTIAL MANUAL DIFFERENTIAL (MANUAL DIFF)
[2023-06-06 20:47] LABS: Alanine Aminotransferase 28 U/L (12-78); Albumin Level 4.2 g/dl (3.5-5.0); Albumin/Globulin Ratio 1.1 (1.1-1.8); Alkaline Phosphatase 111 U/L (38-126); Anion Gap 11.2 mEq/L (5-15); Aspartate Amino Transferase 31 U/L (14-36); Bilirubin,Total 0.3 mg/dl (0.2-1.3); Blood Urea Nitrogen 15 mg/dl (7-17); Calcium 9.6 mg/dl (8.4-10.2); Carbon Dioxide 25 mmol/L (22.0-30.0); Chloride 107 mmol/L (98-107); Creatinine Clearance Estimated 152 mL/min (50-200); Estimated Glomerular Filt Rate 91 ml/min (>60); GFR (African American) 111 ML/MIN (>60); Potassium 3.2 mmoL/L (3.5-5.1); Sodium 140 mmol/L (136-145); Total Protein,Serum 8.2 g/dl (6.3-8.2)
[2023-06-06 20:50] LABS: Glucose 37 mg/dl (74-100)
[2023-06-06 20:54] LABS: Eosinophils % 3 % (0-3); Lymphocytes % 37 % (10-50); Monocytes % 7 % (2-9); Neutrophils % 48 % (42-76); Platelet Estimate Slight Increase; RBC Morphology Normal; Total Cells Counted 100
--- NOTE | 2023-06-06 21:07 | PC.NURSE ---
Pt sitting in bed, eating, a&ox4, rechecked blood glucose, 37 aware, verbal order noted
[2023-06-06 21:08] LABS: Troponin I < 0.01 ng/ml (0.00-0.034)
[2023-06-06] MEDS: DEXTROSE 50% 50ML SYRINGE (CRASH CART) 50 ML IVP ×2 (21:15→22:44)
--- NOTE | 2023-06-06 21:15 | PC.NURSE ---
o/p with hospitalist at this time
--- NOTE | 2023-06-06 21:21 | EXP.HP ---
History of Present Illness *Admission Date: 06/06/23 *Reason for visit:: hypoglycemia *History of present illness: This is a 42-year-old female with PMHx of obesity, type 2 DM on home short and long acting insulin, HTN, Anxiety disorder, multiples ER visits over the last three months presented today with headache body aches lightheadedness. Patient referred been recent diagnosis of COVID, by home test last Sunday. Stated she is primarily here for the lightheadedness and a headache, with fever that resolved by taken Tylenol and ibuprofen at home. Most recently Motrin 2 hours prior to arrival and Tylenol about 6 hours prior to that. Denies any meningismus photophobia change in mental status etc. No respiratory symptoms. No abdominal pain. Stated that her blood sugar has been difficult to control she is on insulin it has been low some and as high as 300. Admitted for further treatment. [facility] Disclaimer: The information contained in this section may have been updated after the patient was seen, as this information can be updated by other users. Medical History (Updated 06/07/23 @ 02:17 by Kevin Giraldo APRN) Acute hypokalemia Acute viral syndrome Acute viral syndrome Asplenia Bacteremia Cough COVID-19 Depression Diabetes mellitus Diabetes mellitus, type 2 Fever Gastroenteritis General weakness Generalized anxiety disorder Grief Hyperlipidemia Hypertension Leukocytosis Migraine Type 2 diabetes mellitus Surgical History (Updated 06/07/23 @ 02:15 by Kevin Giraldo APRN) History of appendectomy History of cholecystectomy History of splenectomy Family History Mother FHx: mental illness Father Diabetes Grandfather Diabetes Grandmother Cancer Social History Smoking Status: Never smoker second hand exposure: No alcohol intake: never substance use type: denies use current occupational status: employed and other details: she is in the process of getting a job; she is interviewing Travel in the last 8 weeks: None adopted: No caregiver/support person: Yes (she takes care of her grand-daughter) foster care: No household members: spouse housing: house marital status: number of children: 1 number of grandchildren: 1 education level: high school service: No alf: No 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 current occupational exposures/hazards: No Hx Recent Travel: No sexually active: Yes caffeine: Yes physical activity: none working smoke detector in home: Yes fire extinguisher in home: Yes carbon monox detector in home: No firearms in home: Yes firearms unloaded and locked: Yes do you feel safe at home: Yes victim of physical abuse: No victim of emotional abuse: No victim of sexual abuse: No Review of Systems Review of Systems Review of systems:: pertinent systems reviewed and negative unless documented below Meds Home Medications and Allergies Home Medications Medication Instructions Recorded Confirmed Type bisoprolol fumarate 10 mg tablet 10 mg PO DAILY High blood pressure 10/02/20 06/06/23 History fenofibrate 160 mg tablet 160 mg PO DAILY Cholesterol 01/16/22 06/06/23 History cholecalciferol (vitamin D3) 125 125 mcg PO DAILY Supplement 02/08/23 06/07/23 History mcg (5,000 unit) tablet (Vitamin D3) desvenlafaxine succinate 100 mg 100 mg PO DAILY Mood 02/08/23 06/06/23 History tablet,extended release 24 hr (Pristiq) ferrous sulfate 325 mg (65 mg 325 mg PO Q48H Supplement 02/08/23 06/06/23 History iron) tablet (FeroSul) gabapentin 300 mg capsule 300 mg PO HS 03/05/23 06/06/23 History tirzepatide 7.5 mg/0.5 mL 7.5 mg SQ WEEKLY Weight 03/14/23 06/06/23 History subcutaneous pen injector Loss/Diabetes (Mounjaro) dextromethorphan IR 45 1 tab PO BID Depression #60 ea 05/07/23 06/06/23 Rx mg-bupropion ER 105 mg biphasic tablet (Auvelity) diazepam 10 mg tablet (Valium) 10 mg PO HS PRN anxiety #30 tabs 05/07/23 06/06/23 Rx rosuvastatin 20 mg tablet 20 mg PO DAILY Cholesterol 06/06/23 06/06/23 History ergocalciferol (vitamin D2) 1,250 50,000 unit PO WEEKLY 06/07/23 06/07/23 History mcg (50,000 unit) capsule insulin glargine U-300 conc 300 10 unit (0.0333 mL) SQ HS Diabetes 06/07/23 06/06/23 Rx unit/mL (3 mL) subcutaneous pen 30 days #0 mL (Toujeo Max U-300 SoloStar) insulin lispro 100 unit/mL 10 unit (0.1 mL) SQ TID Diabetes 06/07/23 06/06/23 Rx subcutaneous pen (Humalog KwikPen 30 days #0 mL (U-100) Insulin) New Prescriptions to Start Prescriptions: Allergies Allergy/AdvReac Type Severity Reaction Status Date / Time No Known Allergies Allergy Verified 05/16/23 13:58 Exam Data for Last 24 hours Vital signs and Labs for Last 24 Hours: Temp Pulse Resp BP Pulse Ox O2 Del Method 98.1 F 98 H 18 127/74 98 Room Air 06/06/23 18:59 06/06/23 18:59 06/06/23 18:59 06/06/23 18:59 06/06/23 18:59 06/06/23 18:59 Laboratory Results - last 24 hr 06/06/23 20:10: WBC 20.8 H*, RBC 4.54, Hgb 13.5, Hct 41.3, MCV 90.8, MCH 29.7, MCHC 32.7, RDW 14.5, Plt Count 567 H, MPV 8.1, Neut % (Auto) 43.7, Lymph % (Auto) 43.1, Taliaferro % (Auto) 10.0 H, Eos % (Auto) 1.9, Baso % (Auto) 1.3, Neut # (Auto) 9.1 H, Lymph # (Auto) 9.0 H, Taliaferro # (Auto) 2.1 H, Eos # (Auto) 0.4, Baso # (Auto) 0.3 H, Total Counted 100, Neutrophils % (Manual) 48, Lymphocytes % (Manual) 37, Atypical Lymphs % 5.0, Monocytes % (Manual) 7, Eosinophils % (Manual) 3, Platelet Estimate Slight increase, RBC Morphology Normal, Sodium 140, Potassium 3.2 L, Chloride 107, Carbon Dioxide 25, Anion Gap 11.2, BUN 15, Creatinine 0.70, Estimated Creat Clear 152, Estimated GFR 91, Est GFR ( Amer) 111, Glucose 37 L*, Calcium 9.6, Total Bilirubin 0.3, AST 31, ALT 28, Alkaline Phosphatase 111, Troponin I < 0.01, Total Protein 8.2, Albumin 4.2, Globulin 4.0 H, Albumin/Globulin Ratio 1.1 I & O for Last 24 hours: Intake & Output 06/03/23 06/04/23 06/05/23 06/06/23 23:59 23:59 23:59 23:59 Weight 92.986 kg Constitutional Constitutional: no acute distress *Routine HEENT Exam Head: Present normocephalic Eye: Present EOMI ENT: Present mucous membranes moist *Routine Neck Exam Neck: Present full ROM *Routine Respiratory Exam Respiratory: Present wheezes and normal respiratory effort *Routine Cardiovascular Exam Cardiovascular: Present RRR *Routine Abdominal Exam Abdominal: Present soft and normoactive bowel sounds; Absent tenderness *Routine Rectal Exam Rectal:: deferred *Routine Genitalia Exam Genitalia:: deferred *Routine Extremities Exam Extremities: Present full ROM *Routine Skin Exam Skin: Present intact *Routine Neurological Exam Neurological: Present alert and oriented X3 H&P: Result Imaging and Cardiology EKG: Status: image reviewed by me and Preliminary report Assessment and Plan *Assessment and plan (1) Hypoglycemia: Status: Acute Category: Medical Code(s): E16.2 - Hypoglycemia, unspecified (2) Diabetes mellitus, type 2: Status: Acute Qualifiers: Diabetes mellitus complication detail: without coma Diabetes mellitus complication status: with hypoglycemia Diabetes mellitus halfway insulin use: with halfway use Qualified Code(s): E11.649 - Type 2 diabetes mellitus with hypoglycemia without coma; 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 Category: Medical Code(s): E11.9 - Type 2 diabetes mellitus without complications (3) Hypokalemia: Status: Resolved Category: Medical Code(s): E87.6 - Hypokalemia (4) Headache: Status: Acute Qualifiers: Headache chronicity pattern: acute headache Headache type: unspecified Intractability: intractable Qualified Code(s): R51.9 - Headache, unspecified Category: Medical Code(s): R51.9 - Headache, unspecified (5) COVID-19: Status: Acute Category: Medical Code(s): U07.1 - COVID-19 (6) Hypertension: Status: Acute Qualifiers: Hypertension type: unspecified Qualified Code(s): I10 - Essential (primary) hypertension Category: Medical Code(s): I10 - Essential (primary) hypertension (7) History of splenectomy: Status: Acute Category: Surgical Code(s): Z90.81 - Acquired absence of spleen Plan 42-year-old female with PMHx of obesity, type 2 DM on home short and long acting insulin, HTN, Anxiety disorder, multiples ER visits over the last three months presented today with headache body aches lightheadedness. Patient referred been recent diagnosis of COVID, by home test last Sunday. On arrival patient was given a headache cocktail. symptoms improved. However has been persistently hypoglycemic. Despite patient efforts to eat BS was from 50 to 30's. D50 IVP, given. started on continuous D5-LR infusion. findings discussed with ER for admission. plan as follow: -Persistent hypoglycemia in the setting of type 2 diabetes with insulin: Admit patient. Dispo MedSurg Started on continue D5 LR infusion at 125ml/hr Monitor for hypoglycemia symptom Vital signs per unit protocol Obtain A1c normal C-peptide ordered Hold home insulin. Questionable amount of insulin. of note patient is reported to be on 20 Humalog 3 times daily and 90 units of Lantus twice daily. Patient is on Mounjaro weekly -Hypokalemia, chronic: Likely due to excessive gastric loose: Replace 40 mEq oral Repeat CMP in the morning Watch for another electrolyte imbalance radiation monitor -Headache resolved. Patient reportedly tested positive at home for COVID-19 White count of 20 with lymphocytosis Repeat nasal swab PCR COVID and flu respiratory panel to confirm Patient asymptomatic and on room air By chart review patient has been positive for COVID very often. to rule out long-term COVID, recurrent infections, in the setting of History of splenectomy or false positive. -Hypertension Stable Resume bisoprolol Lovenox for DVT prophylaxis. On Protonix for GI bleed protection Full code Rounded on patient after nurse practitioner. Personally examined and interviewed patient. Agree with exam findings and care plan as documented.
[2023-06-06] MEDS: DEXTROSE 5%-LACTATED RINGERS 1,000 ML 125 ML IV (21:24)
--- NOTE | 2023-06-06 21:38 | PC.NURSE ---
rechecked patients BS, 123 at this time.
--- NOTE | 2023-06-06 22:13 | PC.NURSE ---
OBSERVATION ADMISSION TO 201 WITH HYPOGLYCEMIA AND COVID TO SERVICE OF THE HOSPITALIST.
--- NOTE | 2023-06-06 22:18 | PC.NURSE ---
rechecked BS at this time. 82.
--- NOTE | 2023-06-06 22:31 | PC.NURSE ---
Nurse to nurse report to Brittanie
--- NOTE | 2023-06-06 22:33 | PC.NURSE ---
RECEIVED PHONE REPORT FROM EUGENIO RN/ED NURSE AT 0522. PATIENT IS 42 YO FEMALE ADMISSION DIAGNOSIS HYPOGLYCEMIA/COVID 19. MAY TRANSPORT BY W/C.
[2023-06-06 22:40] VITALS: BP 109/59; BP 120/70; PULSE 83; RESP 12; TEMP 36.7; O2SAT 98
--- NOTE | 2023-06-06 22:45 | PC.NURSE ---
Patient's dexcom alarmed and just reads urgent Low at this time. Patient preparing to go to the floor. Spoke with the emergency provider whom asked for an amp of D50 at this time.
--- NOTE | 2023-06-06 22:46 | PC.NURSE ---
Updated floor nurse Brittanie of glucose and medication administration.
[2023-06-06 23:07] VITALS: BP 109/59; PULSE 79; RESP 12; TEMP 36.9; O2SAT 97; BMI 33.6
[2023-06-06 23:30] LABS: Troponin I < 0.01 ng/ml (0.00-0.034)
--- NOTE | 2023-06-06 23:53 | PC.NURSE ---
patient arrived to floor via wheelchair @22:49
[2023-06-07 00:14] LABS: Adenovirus,PCR Not Detected (NotDetected); Coronavirus 19, PCR Not Detected (NotDetected); Coronavirus 229E Not Detected (NotDetected); Coronavirus NL63 Not Detected (NotDetected); Coronavirus OC43 Not Detected (NotDetected); Coronovirus HKU1,PCR Not Detected (NotDetected); Human Metapneumovirus Not Detected (NotDetected); Influenza A, PCR Not Detected (NotDetected); Influenza AH1, 2009 Not Detected (NotDetected); Influenza AH1, PCR Not Detected (NotDetected); Influenza AH3,PCR Not Detected (NotDetected); Influenza B, PCR Not Detected (NotDetected); Parainfluenza 1, PCR Not Detected (NotDetected); Parainfluenza 2, PCR Not Detected (NotDetected); Parainfluenza 3, PCR Not Detected (NotDetected); Parainfluenza 4, PCR Not Detected (NotDetected); Respiratory Syncytial Virus Not Detected (NotDetected); Rhinovirus/Enterovirus Not Detected (NotDetected)
[2023-06-07 02:21] LABS: Troponin I < 0.01 ng/ml (0.00-0.034)
[2023-06-07] MEDS: POTASSIUM CHLORIDE 20MEQ TAB 40 MEQ PO (02:50)
[2023-06-07 04:00] VITALS: BP 126/76; PULSE 77; RESP 12; TEMP 36.5; O2SAT 98; BMI 33.6
[2023-06-07 05:11] LABS: POC Glucose,Bedside 133 (70-110)
--- NOTE | 2023-06-07 05:16 | PC.NURSE ---
ARRIVED TO THR FLOOR AT 2249 IN A W/C FROM THE ER. PATIENT HAS A DEXCOM FOR MONITORING BLOOD SUGAR. A/O X 4. ORIENTED TO ROOM AND EQUIPEMENT. DOES NOT WANT MEDS TO BED. RESP PANEL NEGATIVE.
[2023-06-07 07:13] LABS: Chloride 105 mmol/L (98-107)
[2023-06-07 07:14] LABS: Potassium 3.6 mmoL/L (3.5-5.1); Sodium 134 mmol/L (136-145)
[2023-06-07 07:16] LABS: Alanine Aminotransferase 26 U/L (12-78); Anion Gap 4.6 mEq/L (5-15); Aspartate Amino Transferase 30 U/L (14-36); Blood Urea Nitrogen 10 mg/dl (7-17); Carbon Dioxide 28 mmol/L (22.0-30.0); Creatinine Clearance Estimated 218 mL/min (50-200); Estimated Glomerular Filt Rate 135 ml/min (>60); GFR (African American) 163 ML/MIN (>60)
[2023-06-07 07:17] LABS: Albumin Level 3.3 g/dl (3.5-5.0); Alkaline Phosphatase 115 U/L (38-126); Basophils # 0.1 K/mm3 (0-0.2); Basophils % 0.5 % (0.1-2.0); Bilirubin,Total 0.2 mg/dl (0.2-1.3); Calcium 8.6 mg/dl (8.4-10.2); Eosinophils # 0.3 K/mm3 (0.0-0.4); Eosinophils % 1.9 % (0.1-12.0); Globulin 3.4 g/dL (1.3-3.2); Glucose 136 mg/dl (74-100); Hematocrit 41.6 % (37.0-47.0); Hemoglobin 13.3 g/dL (12.2-16.2); Lymphocytes # 5.7 K/mm3 (0.7-4.5); Magnesium 1.9 mg/dl (1.6-2.3); Mean Corpuscular HGB Conc 31.9 g/dL (31.8-35.4); Mean Corpuscular Hemoglobin 28.9 pg (27.0-31.2); Mean Corpuscular Volume 90.4 fl (81-99); Mean Platelet Volume 7.3 fl (7.4-10.4); Monocytes # 1.7 K/mm3 (0.1-1.0); Monocytes % 12.1 % (1.7-9.3); Neutrophils # 6.5 K/mm3 (1.8-7.8); Neutrophils % 45.3 % (37.0-80.0); Platelet Count 526 K/mm3 (142-424); Red Cell Distribution Width 14.6 % (11.5-17.5); Total Protein,Serum 6.7 g/dl (6.3-8.2); White Blood Count 14.3 K/mm3 (4.8-10.8)
--- NOTE | 2023-06-07 07:54 | HMH.PHAINT1 ---
Pharmacy Intervention Comments: Reviewed medications using external prescription fill history;clarified meds with patient at bedside.
[2023-06-07 08:00] VITALS: BP 130/79; PULSE 85; RESP 22; TEMP 36.7; O2SAT 96
[2023-06-07] MEDS: DEXTROSE 5%-LACTATED RINGERS 1,000 ML 125 ML IV (08:49)
[2023-06-07] MEDS: BISOPROLOL 5MG TABLET 10 MG PO (08:50)
[2023-06-07] MEDS: FENOFIBRATE 134MG CAPSULE 134 MG PO (08:50)
[2023-06-07] MEDS: ENOXAPARIN 40MG/0.4ML SYRINGE 40 MG SQ (08:50)
[2023-06-07 09:06] LABS: Hemoglobin A1C 6.7 % (4.0-6.0)
[2023-06-07] MEDS: humaLOG 100 UNITS/ML 3ML VIAL (SSI) SQ (11:57)
--- NOTE | 2023-06-07 11:57 | PC.NURSE ---
per nadia goldsteinay to use pts dexcom
--- NOTE | 2023-06-07 14:50 | EXP.DC.SUM ---
General Admission date:: 06/06/23 Discharge date: 06/07/23 HPI HPI HPI: This is a 42-year-old female with PMHx of obesity, type 2 DM on home short and long acting insulin, HTN, Anxiety disorder, multiples ER visits over the last three months presented today with headache body aches lightheadedness. Patient referred been recent diagnosis of COVID, by home test last Sunday. Stated she is primarily here for the lightheadedness and a headache, with fever that resolved by taken Tylenol and ibuprofen at home. Most recently Motrin 2 hours prior to arrival and Tylenol about 6 hours prior to that. Denies any meningismus photophobia change in mental status etc. No respiratory symptoms. No abdominal pain. Stated that her blood sugar has been difficult to control she is on insulin it has been low some and as high as 300. Admitted for further treatment. Hospital Course Hospital Course Hospital Course: 42-year-old female with PMHx of obesity, type 2 DM on home short and long acting insulin, HTN, Anxiety disorder, multiples ER visits over the last three months presented today with headache body aches lightheadedness. Patient referred been recent diagnosis of COVID, by home test last Sunday. On arrival patient was given a headache cocktail. symptoms improved. However has been persistently hypoglycemic. Despite patient efforts to eat BS was from 50 to 30's. D50 IVP, given. started on continuous D5-LR infusion initially required, had improvement in glucose and able to stop dextrose infusion. Negative for COVID on admission to the hospital. Given clinical stability, meeting criteria for discharge home. Adjustments made to diabetes regimen. Close follow-up with primary care. Problems addressed as follows: -Persistent hypoglycemia in the setting of type 2 diabetes with insulin: Admitted for monitoring and dextrose infusion. Responded well and able to discontinue after less than 8 hours. Blood sugar rebounded quickly. A1c 6.7 on admission. Adjustments made to insulin regimen. Will continue insulin glargine 10 units nightly with plan to increase by 2 units every 3 days if morning glucose remains above 150. Recommended she stop at 20 units and discuss further adjustments with her calibration specialist or PCP prior to further increase above 20 units of glargine. Continue mealtime insulin at half dose of 10 units. May need further adjustment. Continue monitoring with Dexcom. Recommend continuing patient's Mounjaro. Tolerating p.o. intake and stable for discharge home. -Hypokalemia, chronic: Likely due to excessive gastric loose. Replaced orally during admission. 3.6 on morning labs. Recommend repeat labs in 1 week. -Headache resolved. Patient reportedly tested positive at home for COVID-19 negative on admission to the hospital. Reassured her that she does not have COVID at this time. Suspect her symptomology is related to her hypoglycemia. 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 Spent 30 minutes in discharge counseling, documentation, chart review, and direct care with patient. Exam Data for Last 24 hours Vital signs and Labs for Last 24 Hours: Temp Pulse Resp BP Pulse Ox O2 Del Method 98.0 F 85 22 130/79 96 Room Air 06/07/23 08:00 06/07/23 08:00 06/07/23 08:00 06/07/23 08:00 06/07/23 08:00 06/07/23 13:00 Laboratory Results - last 24 hr 06/06/23 20:10: WBC 20.8 H*, RBC 4.54, Hgb 13.5, Hct 41.3, MCV 90.8, MCH 29.7, MCHC 32.7, RDW 14.5, Plt Count 567 H, MPV 8.1, Neut % (Auto) 43.7, Lymph % (Auto) 43.1, [place] % (Auto) 10.0 H, Eos % (Auto) 1.9, Baso % (Auto) 1.3, Neut # (Auto) 9.1 H, Lymph # (Auto) 9.0 H, [place] # (Auto) 2.1 H, Eos # (Auto) 0.4, Baso # (Auto) 0.3 H, Total Counted 100, Neutrophils % (Manual) 48, Lymphocytes % (Manual) 37, Atypical Lymphs % 5.0, Monocytes % (Manual) 7, Eosinophils % (Manual) 3, Platelet Estimate Slight increase, RBC Morphology Normal, Sodium 140, Potassium 3.2 L, Chloride 107, Carbon Dioxide 25, Anion Gap 11.2, BUN 15, Creatinine 0.70, Estimated Creat Clear 152, Estimated GFR 91, Est GFR ( Amer) 111, Glucose 37 L*, Calcium 9.6, Total Bilirubin 0.3, AST 31, ALT 28, Alkaline Phosphatase 111, Troponin I < 0.01, Total Protein 8.2, Albumin 4.2, Globulin 4.0 H, Albumin/Globulin Ratio 1.1 06/06/23 23:00: Troponin I < 0.01 06/07/23 00:03: Chlamy pneumoniae PCR TNP, Adenovirus (PCR) Not detected, B. pertussis DNA (PCR) TNP, Coronavirus OC43 (PCR) Not detected, Coronavirus HKU1 (PCR) Not detected, Coronavirus 229E (PCR) Not detected, SARS-CoV-2 (PCR) Not detected, Coronavirus NL63 (PCR) Not detected, Human Metapneumovir PCR Not detected, Influenza A (H1) PCR Not detected, Influ A (H1N1/09) PCR Not detected, Influenza A (H3) PCR Not detected, Influenza Type A (PCR) Not detected, Influenza Type B (PCR) Not detected, M. pneumoniae (PCR) TNP, Parainfluenza 1 (PCR) Not detected, Parainfluenza 2 (PCR) Not detected, Parainfluenza 3 (PCR) Not detected, Parainfluenza 4 (PCR) Not detected, RSV (PCR) Not detected, Entero/Rhino (PCR) Not detected 06/07/23 01:50: Troponin I < 0.01 06/07/23 05:04: POC Glucose 133 H 06/07/23 05:32: WBC 14.3 H D, RBC 4.60, Hgb 13.3, Hct 41.6, MCV 90.4, MCH 28.9, MCHC 31.9, RDW 14.6, Plt Count 526 H, MPV 7.3 L, Neut % (Auto) 45.3, Lymph % (Auto) 40.0, [place] % (Auto) 12.1 H, Eos % (Auto) 1.9, Baso % (Auto) 0.5, Neut # (Auto) 6.5, Lymph # (Auto) 5.7 H, [place] # (Auto) 1.7 H, Eos # (Auto) 0.3, Baso # (Auto) 0.1, Sodium 134 L, Potassium 3.6, Chloride 105, Carbon Dioxide 28, Anion Gap 4.6 L, BUN 10 D, Creatinine 0.50 L D, Estimated Creat Clear 218, Estimated GFR 135, Est GFR ( Amer) 163 D, Glucose 136 H D, Hemoglobin A1c 6.7 H, Calcium 8.6, Magnesium 1.9, Total Bilirubin 0.2, AST 30, ALT 26, Alkaline Phosphatase 115, Total Protein 6.7, Albumin 3.3 L D, Globulin 3.4 H, Albumin/Globulin Ratio 1.0 L I & O for Last 24 hours: Intake & Output 06/04/23 06/05/23 06/06/23 06/07/23 23:59 23:59 23:59 23:59 Intake Total 360 / 360 Output Total Balance - 359 / 359 Weight 95.028 kg 95.028 kg Constitutional Constitutional: no acute distress *Routine HEENT Exam Head: Present normocephalic Eye: Present EOMI and PERRL ENT: Present mucous membranes moist *Routine Neck Exam Neck: Present supple; Absent lymphadenopathy *Routine Respiratory Exam Respiratory: Present CTA bilaterally *Routine Cardiovascular Exam Cardiovascular: Present RRR *Routine Abdominal Exam Abdominal: Present soft and normoactive bowel sounds; Absent tenderness *Routine Extremities Exam Extremities: Absent cyanosis, clubbing or edema *Routine Skin Exam Skin: Present warm; Absent rash *Routine Neurological Exam Neurological: Present alert, oriented X3 and moving all extremities; Absent altered mental status Results Data Completed and Pending Labs on day of discharge: Labs from last 24 hours 06/07/23 06/07/23 06/07/23 05:32 05:04 01:50 WBC 14.3 H D RBC 4.60 Hgb 13.3 Hct 41.6 MCV 90.4 MCH 28.9 MCHC 31.9 RDW 14.6 Plt Count 526 H MPV 7.3 L Neut % (Auto) 45.3 Lymph % (Auto) 40.0 [place] % (Auto) 12.1 H Eos % (Auto) 1.9 Baso % (Auto) 0.5 Neut # (Auto) 6.5 Lymph # (Auto) 5.7 H [place] # (Auto) 1.7 H Eos # (Auto) 0.3 Baso # (Auto) 0.1 Total Counted Neutrophils % (Manual) Lymphocytes % (Manual) Atypical Lymphs % Monocytes % (Manual) Eosinophils % (Manual) Platelet Estimate RBC Morphology Sodium 134 L Potassium 3.6 Chloride 105 Carbon Dioxide 28 Anion Gap 4.6 L BUN 10 D Creatinine 0.50 L D Estimated Creat Clear 218 Estimated GFR 135 Est GFR ( Amer) 163 D Glucose 136 H D POC Glucose 133 H Hemoglobin A1c 6.7 H Calcium 8.6 Magnesium 1.9 Total Bilirubin 0.2 AST 30 ALT 26 Alkaline Phosphatase 115 Troponin I < 0.01 Total Protein 6.7 Albumin 3.3 L D Globulin 3.4 H Albumin/Globulin Ratio 1.0 L Chlamy pneumoniae PCR Adenovirus (PCR) B. pertussis DNA (PCR) Coronavirus OC43 (PCR) Coronavirus HKU1 (PCR) Coronavirus 229E (PCR) SARS-CoV-2 (PCR) Coronavirus NL63 (PCR) Human Metapneumovir PCR Influenza A (H1) PCR Influ A (H1N1/09) PCR Influenza A (H3) PCR Influenza Type A (PCR) Influenza Type B (PCR) M. pneumoniae (PCR) Parainfluenza 1 (PCR) Parainfluenza 2 (PCR) Parainfluenza 3 (PCR) Parainfluenza 4 (PCR) RSV (PCR) Entero/Rhino (PCR) 06/07/23 06/06/23 06/06/23 00:03 23:00 20:10 WBC 20.8 H* RBC 4.54 Hgb 13.5 Hct 41.3 MCV 90.8 MCH 29.7 MCHC 32.7 RDW 14.5 Plt Count 567 H MPV 8.1 Neut % (Auto) 43.7 Lymph % (Auto) 43.1 [place] % (Auto) 10.0 H Eos % (Auto) 1.9 Baso % (Auto) 1.3 Neut # (Auto) 9.1 H Lymph # (Auto) 9.0 H [place] # (Auto) 2.1 H Eos # (Auto) 0.4 Baso # (Auto) 0.3 H Total Counted 100 Neutrophils % (Manual) 48 Lymphocytes % (Manual) 37 Atypical Lymphs % 5.0 Monocytes % (Manual) 7 Eosinophils % (Manual) 3 Platelet Estimate Slight increase RBC Morphology Normal Sodium 140 Potassium 3.2 L Chloride 107 Carbon Dioxide 25 Anion Gap 11.2 BUN 15 Creatinine 0.70 Estimated Creat Clear 152 Estimated GFR 91 Est GFR ( Amer) 111 Glucose 37 L* POC Glucose Hemoglobin A1c Calcium 9.6 Magnesium Total Bilirubin 0.3 AST 31 ALT 28 Alkaline Phosphatase 111 Troponin I < 0.01 < 0.01 Total Protein 8.2 Albumin 4.2 Globulin 4.0 H Albumin/Globulin Ratio 1.1 Chlamy pneumoniae PCR TNP Adenovirus (PCR) Not detected B. pertussis DNA (PCR) TNP Coronavirus OC43 (PCR) Not detected Coronavirus HKU1 (PCR) Not detected Coronavirus 229E (PCR) Not detected SARS-CoV-2 (PCR) Not detected Coronavirus NL63 (PCR) Not detected Human Metapneumovir PCR Not detected Influenza A (H1) PCR Not detected Influ A (H1N1/09) PCR Not detected Influenza A (H3) PCR Not detected Influenza Type A (PCR) Not detected Influenza Type B (PCR) Not detected M. pneumoniae (PCR) TNP Parainfluenza 1 (PCR) Not detected Parainfluenza 2 (PCR) Not detected Parainfluenza 3 (PCR) Not detected Parainfluenza 4 (PCR) Not detected RSV (PCR) Not detected Entero/Rhino (PCR) Not detected DS: Diagnosis Discharge Diagnosis (1) Hypoglycemia: Status: Acute Code(s): E16.2 - Hypoglycemia, unspecified (2) Diabetes mellitus, type 2: Status: Acute Code(s): E11.9 - Type 2 diabetes mellitus without complications Qualifiers: Diabetes mellitus complication detail: without coma Diabetes mellitus complication status: with hypoglycemia Diabetes mellitus nursing home insulin use: with nursing home use Qualified Code(s): E11.649 - Type 2 diabetes mellitus with hypoglycemia without coma; 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 (3) Hypokalemia: Status: Resolved Code(s): E87.6 - Hypokalemia (4) Headache: Status: Acute Code(s): R51.9 - Headache, unspecified Qualifiers: Headache chronicity pattern: acute headache Headache type: unspecified Intractability: intractable Qualified Code(s): R51.9 - Headache, unspecified (5) COVID-19: Status: Acute Code(s): U07.1 - COVID-19 (6) Hypertension: Status: Acute Code(s): I10 - Essential (primary) hypertension Qualifiers: Hypertension type: unspecified Qualified Code(s): I10 - Essential (primary) hypertension (7) History of splenectomy: Status: Acute Code(s): Z90.81 - Acquired absence of spleen Meds Home Medications and Allergies Home Medications Medication Instructions Recorded Confirmed Type bisoprolol fumarate 10 mg tablet 10 mg PO DAILY High blood pressure 10/02/20 06/06/23 History fenofibrate 160 mg tablet 160 mg PO DAILY Cholesterol 01/16/22 06/06/23 History cholecalciferol (vitamin D3) 125 125 mcg PO DAILY Supplement 02/08/23 06/07/23 History mcg (5,000 unit) tablet (Vitamin D3) desvenlafaxine succinate 100 mg 100 mg PO DAILY Mood 02/08/23 06/06/23 History tablet,extended release 24 hr (Pristiq) ferrous sulfate 325 mg (65 mg 325 mg PO Q48H Supplement 02/08/23 06/06/23 History iron) tablet (FeroSul) gabapentin 300 mg capsule 300 mg PO HS 03/05/23 06/06/23 History tirzepatide 7.5 mg/0.5 mL 7.5 mg SQ WEEKLY Weight 03/14/23 06/06/23 History subcutaneous pen injector Loss/Diabetes (Mounjaro) dextromethorphan IR 45 1 tab PO BID Depression #60 ea 05/07/23 06/06/23 Rx mg-bupropion ER 105 mg biphasic tablet (Auvelity) diazepam 10 mg tablet (Valium) 10 mg PO HS PRN anxiety #30 tabs 05/07/23 06/06/23 Rx rosuvastatin 20 mg tablet 20 mg PO DAILY Cholesterol 06/06/23 06/06/23 History ergocalciferol (vitamin D2) 1,250 50,000 unit PO WEEKLY 06/07/23 06/07/23 History mcg (50,000 unit) capsule insulin glargine U-300 conc 300 10 unit (0.0333 mL) SQ HS Diabetes 06/07/23 06/06/23 Rx unit/mL (3 mL) subcutaneous pen 30 days #0 mL (Toujeo Max U-300 SoloStar) insulin lispro 100 unit/mL 10 unit (0.1 mL) SQ TID Diabetes 06/07/23 06/06/23 Rx subcutaneous pen (Humalog KwikPen 30 days #0 mL (U-100) Insulin) New Prescriptions to Start Prescriptions: Allergies Allergy/AdvReac Type Severity Reaction Status Date / Time No Known Allergies Allergy Verified 05/16/23 13:58 Discharge Plan Disposition Patient Disposition: Home, Self-Care Condition: Fair Follow up Plan Follow up with: Diamond Kramer APRN [Referring] - 06/11/23 10:00 am Prescriptions/Medication Reconciliation: Continued Auvelity 45-105 mg tablet, IR and ER, biphasic 1 tab PO BID Qty: 60 2RF diazepam [Valium] 10 mg tablet 10 mg PO HS PRN (Reason: anxiety) Qty: 30 2RF gabapentin 300 mg capsule 300 mg PO HS bisoprolol fumarate 10 MG tablet 10 mg PO DAILY ferrous sulfate [FeroSul] 325 mg (65 mg iron) tablet 325 mg PO Q48H Patient Comments: TAKE 1 TABLET BY MOUTH EVERY OTHER DAY cholecalciferol (vitamin D3) [Vitamin D3] 125 mcg (5,000 unit) Tablet 125 mcg PO DAILY desvenlafaxine succinate [Pristiq] 100 mg tablet extended release 24 hr 100 mg PO DAILY fenofibrate 160 mg tablet 160 mg PO DAILY Patient Comments: TAKE 1 TABLET BY MOUTH ONCE DAILY Mounjaro 7.5 mg/0.5 mL pen injector 7.5 mg SQ WEEKLY Patient Comments: INJECT 7.5MG SUBCUTANEOUSLY ONCE A WEEK rosuvastatin 20 mg Tablet 20 mg PO DAILY ergocalciferol (vitamin D2) 1,250 mcg (50,000 unit) capsule 50,000 unit PO WEEKLY Patient Comments: TAKE 1 CAPSULE BY MOUTH ONCE A WEEK Changed insulin lispro [Humalog KwikPen Insulin] 100 unit/mL insulin pen 10 unit SQ TID 30 Days Qty: 0 0RF Patient Comments: Per patient, only takes 20 unit dose with meals - skips if skipped meal insulin glargine U-300 conc [Toujeo Max U-300 SoloStar] 300 unit/mL (3 mL) insulin pen 10 unit SQ HS 30 Days Qty: 0 0RF Problem Reconciliation Problems Reviewed?: Yes Patient Discharge Instructions ACTIVITY: Continue current activity DIET: continue same diet Additional Instructions: If morning glucose remains above 150 for 3 days in a row, increase basal insulin at night by 2 units. For example: If glucose above 150 for the next 3 days, increase insulin at night to 12 units of glargine. If remains above 150 for 3 more days, increase to 14 units. Continue to increase until reaches 20 units, do not go past 20 without discussing further with calibration specialist or primary care. If having high glucose during the day, discuss adjustments with PCP or calibration specialist over the next few weeks. Stand Alone Forms: [facility] Work Release Patient Instructions: DI for Hypoglycemia, DI for COVID-19 (Suspected or Confirmed ) Providers Primary Care Provider: Provider,Referral Admit Provider: Riky Joiner Attending Provider: Riky Joiner
[2023-06-08 14:16] LABS: C-Peptide 3.1 ng/mL (1.1-4.4)
--- NOTE | 2023-06-08 14:53 | CARE MANAGER ---
Patient called back. States that she is doing well. She is aware of insulin changes. She denies questions or concerns and is aware of follow up appt with PCP and endocrinology. KARINA Nunez
== END 2023-06-07 15:50 | disposition home or self-care (01) ==
LOC: ER 21:17 → 2ND 23:00
PROVIDERS: Nurse Practitioner Family; Admitting Provider Internal Medicine Adolescent Medicine; Emergency Provider Student in an Organized Health Care Education/Training Program; Visit Provider Internal Medicine Adolescent Medicine
DX: E11.649 Type 2 diabetes mellitus with hypoglycemia without coma (principal); F32.A Depression, unspecified; E78.5 Hyperlipidemia, unspecified; I10 Essential (primary) hypertension; R51.9 Headache, unspecified; Z86.16 Personal history of COVID-19; Z79.4 Long term (current) use of insulin
CPT/HCPCS: 36415; 80053; 82962; 83036; 83735; 84484; 84681; 85007; 85025; 87632; 87635; 93005; 99291; G0378; J0131

== ENCOUNTER 2023-11-05 11:43 | Outpatient (CLI) | payer BC, SELFPAY ==
--- NOTE | 2023-11-05 11:48 | XR_ITS ---
FINAL REPORT CLINICAL HISTORY: Right knee pain after a fall FINDINGS: Four views of the right knee reveal no evidence of fracture or dislocation. The bony alignment is normal. The joint spaces are preserved. There is no evidence of joint effusion. No localized soft tissue abnormality is identified. IMPRESSION: No acute abnormality identified. Reviewed, Interpreted and Dictated by Castro Patel III, MD Transcribed by Cheri Romano Authenticated and [facility]
--- NOTE | 2023-11-05 11:48 | XR_ITS ---
FINAL REPORT CLINICAL HISTORY: Right foot pain after a fall FINDINGS: RIGHT FOOT 3 views of the right foot were obtained. There is no acute fracture or dislocation. There are small calcaneal spurs. Visualized joint spaces are normally aligned. Soft tissues are unremarkable. IMPRESSION: No acute bony abnormality. Reviewed, Interpreted and Dictated by Castro Patel III, MD Transcribed by Cheri Romano Authenticated and [facility]
== END 2023-11-05 23:59 | disposition home or self-care (01) ==
LOC: RAD 11:44
PROVIDERS: PCP Nurse Practitioner Family; Visit Provider Nurse Practitioner Family
DX: M79.671 Pain in right foot (principal); M25.561 Pain in right knee
CPT/HCPCS: 73562; 73630

== ENCOUNTER 2023-12-03 15:11 | Outpatient (CLI) | payer BC, SELFPAY ==
--- NOTE | 2023-12-03 15:17 | MM_ITS ---
PROCEDURE INFORMATION: Exam: MG Bilateral Screening 3D Mammography Exam date and time: 12/03/2023 3:00 PM Age: 43 years old Clinical indication: Screening examination TECHNIQUE: Imaging protocol: Bilateral Screening tomosynthesis and 2D mammography including computer-aided detection (CAD) when performed. COMPARISON: 1. MG MM DIG SCREENING MAMM BI W/CAD 11/01/2022 4:44 PM 2. MG MAMMO SCREENING DIGITAL TOMOSYNTHESIS BILATERAL W CAD 11/24/2019 8:54 AM FINDINGS: MAMMOGRAPHY: Breast composition: There are scattered areas of fibroglandular density. Mass: No suspicious masses. Architectural distortion: None. Calcifications: No suspicious calcifications. Asymmetric density: None. Skin thickening: None. Axillary adenopathy: None. IMPRESSION: No mammographic evidence of malignancy. Annual screening is recommended unless otherwise clinically indicated. ASSESSMENT: BI-RADS Category 1: Negative
== END 2023-12-03 23:59 | disposition home or self-care (01) ==
LOC: RAD 15:12
PROVIDERS: PCP Nurse Practitioner Family; Visit Provider Nurse Practitioner Family
DX: Z12.31 Encounter for screening mammogram for malignant neoplasm of breast (principal)
CPT/HCPCS: 77063; 77067

== ENCOUNTER 2023-12-15 08:20 | Emergency (ER) | payer BC, SELFPAY ==
[2023-12-15 08:35] VITALS: BP 140/84; PULSE 109; RESP 20; TEMP 36.7; O2SAT 95; BMI 31.8
[2023-12-15 08:59] LABS: UTC Strep Screen (Rapid) Negative (Negative)
--- NOTE | 2023-12-15 09:09 | EXP.UTC ---
Discharge Plan Disposition Patient Disposition: Home, Self-Care Condition: Good Prescriptions Prescriptions: No Action gabapentin 300 mg capsule 300 mg PO HS desvenlafaxine succinate [Pristiq] 100 mg tablet extended release 24 hr 100 mg PO DAILY Qty: 90 1RF Auvelity 45-105 mg tablet, IR and ER, biphasic 1 tab PO BID Qty: 180 1RF diazepam [Valium] 10 mg tablet 10 mg PO BID PRN (Reason: anxiety) Qty: 60 0RF bisoprolol fumarate 10 MG tablet 10 mg PO DAILY ferrous sulfate [FeroSul] 325 mg (65 mg iron) tablet 325 mg PO Q48H Patient Comments: TAKE 1 TABLET BY MOUTH EVERY OTHER DAY cholecalciferol (vitamin D3) [Vitamin D3] 125 mcg (5,000 unit) Tablet 125 mcg PO DAILY fenofibrate 160 mg tablet 160 mg PO DAILY Patient Comments: TAKE 1 TABLET BY MOUTH ONCE DAILY Mounjaro 7.5 mg/0.5 mL pen injector 7.5 mg SQ WEEKLY Patient Comments: INJECT 7.5MG SUBCUTANEOUSLY ONCE A WEEK rosuvastatin 20 mg Tablet 20 mg PO DAILY ergocalciferol (vitamin D2) 1,250 mcg (50,000 unit) capsule 50,000 unit PO WEEKLY Patient Comments: TAKE 1 CAPSULE BY MOUTH ONCE A WEEK insulin lispro [Humalog KwikPen Insulin] 100 unit/mL insulin pen 10 unit SQ TID 30 Days Qty: 0 0RF Patient Comments: Per patient, only takes 20 unit dose with meals - skips if skipped meal insulin glargine U-300 conc [Toujeo Max U-300 SoloStar] 300 unit/mL (3 mL) insulin pen 10 unit SQ HS 30 Days Qty: 0 0RF Referrals Follow up/Referrals: Provider,Referral, MD [Primary Care Provider] - See instructions Activity Restrictions/Add. Instructions Additional Instructions/Restrictions: covid swab was sent to lab, call tomorrow for results. self isolate until test results are known to be negative No sign of a bacterial infection. Likely viral. Viruses can take 7-14 days to run their course. Nasal saline and bulb syringe or nose Betsey to remove nasal drainage to help with nasal congestion. Hard to eat, drink, sleep with nasal congestion so important to keep this cleaned out. Monitor temp. Tylenol or Motrin as needed for pain or fever Encourage fluids, water, Gatorade, Powerade, Pedialyte if infant/toddler/child Warm salt water gargles Warm fluids Sore throat lozenges Sleep elevated Humidifier/vaporizer Follow-up immediately for new or worsening symptoms or no noticeable improvement over the next 48-72 hours. Clinical Impressions Clinical Impression: Upper respiratory infection, Contact with and (suspected) exposure to covid-19 Instructions Patient Instructions: DI for Viral Upper Respiratory Infection -- Adult, DI for COVID-19 (Suspected or Confirmed ) Print Language Print Language: Welsh Discharge ED Provider: Selma ([facility] [place] HPI General Stated complaint: cough, sore throat Mode of Arrival: Ambulatory Source of Information: Patient Limitations: No Limitations Time Seen by Provider: 12/15/23 09:09 Description of Symptoms (Recalled from Triage Doc. by RN): PATIENT C/O COUGH, SORE THROAT, HEADACHE, AND CHEST CONGESTION SINCE SUNDAY NIGHT HEENT Symptoms (Recalled from RN notes): Yes Resp Symptoms (Recalled from RN notes): Yes Skin Symptoms (Recalled from RN notes): No MS Symptoms (Recalled from RN notes): No Functional Status (Recalled from RN notes): WNL History of Present Illness Provider Complaint: 43 yr old female presents for c/o cough, congestion,odonnell and sore throat. has been exposed to covid Related Data Home Medications ?Medication ?Instructions ?Recorded ?Confirmed bisoprolol fumarate 10 mg tablet 10 mg PO DAILY High blood pressure 10/02/20 11/05/23 fenofibrate 160 mg tablet 160 mg PO DAILY Cholesterol 01/16/22 11/05/23 cholecalciferol (vitamin D3) 125 125 mcg PO DAILY Supplement 02/08/23 11/05/23 mcg (5,000 unit) tablet (Vitamin D3) ferrous sulfate 325 mg (65 mg 325 mg PO Q48H Supplement 02/08/23 11/05/23 iron) tablet (FeroSul) gabapentin 300 mg capsule 300 mg PO HS 03/05/23 11/05/23 tirzepatide 7.5 mg/0.5 mL 7.5 mg SQ WEEKLY Weight 03/14/23 11/05/23 subcutaneous pen injector Loss/Diabetes (Mounjaro) rosuvastatin 20 mg tablet 20 mg PO DAILY Cholesterol 06/06/23 11/05/23 ergocalciferol (vitamin D2) 1,250 50,000 unit PO WEEKLY 06/07/23 11/05/23 mcg (50,000 unit) capsule Previous Rx's ?Medication ?Instructions ?Recorded insulin glargine U-300 conc 300 10 unit (0.0333 mL) SQ HS Diabetes 06/07/23 unit/mL (3 mL) subcutaneous pen 30 days #0 mL (Toujeo Max U-300 SoloStar) insulin lispro 100 unit/mL 10 unit (0.1 mL) SQ TID Diabetes 06/07/23 subcutaneous pen (Humalog KwikPen 30 days #0 mL (U-100) Insulin) desvenlafaxine succinate 100 mg 100 mg PO DAILY Mood #90 tabs 11/05/23 tablet,extended release 24 hr (Pristiq) dextromethorphan IR 45 1 tab PO BID Depression #180 ea 11/05/23 mg-bupropion ER 105 mg biphasic tablet (Auvelity) diazepam 10 mg tablet (Valium) 10 mg PO BID PRN anxiety #60 tabs 12/10/23 Allergies Allergy/AdvReac Type Severity Reaction Status Date / Time No Known Allergies Allergy Verified 11/05/23 16:07 Worker's Comp Is this a Worker's Comp case?: No [facility] Disclaimer: The information contained in this section may have been updated after the patient was seen, as this information can be updated by other users. Medical History , BUSINESS PROPOSAL REP) COVID-19 Bacteremia Asplenia Fever Acute hypokalemia Cough Acute viral syndrome General weakness Leukocytosis COVID-19 Hypertension Gastroenteritis Acute viral syndrome Grief Depression Migraine Diabetes mellitus, type 2 Hyperlipidemia Generalized anxiety disorder Type 2 diabetes mellitus Diabetes mellitus Surgical History , BUSINESS PROPOSAL REP) History of splenectomy History of cholecystectomy History of appendectomy Family History , BUSINESS PROPOSAL REP) Diabetes Father Grandfather FHx: mental illness Mother Cancer Grandmother Social History Smoking Status: Never smoker second hand exposure: No alcohol intake: never substance use type: denies use current occupational status: employed and other details: she is in the process of getting a job; she is interviewing Travel in the last 8 weeks: None adopted: No caregiver/support person: Yes (she takes care of her grand-daughter) foster care: No household members: spouse housing: house marital status: number of children: 1 number of grandchildren: 1 education level: high school service: No longterm: No 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 [employer] current occupational exposures/hazards: No Hx Recent Travel: No sexually active: Yes caffeine: Yes physical activity: none working smoke detector in home: Yes fire extinguisher in home: Yes carbon monox detector in home: No firearms in home: Yes firearms unloaded and locked: Yes do you feel safe at home: Yes victim of physical abuse: No victim of emotional abuse: No victim of sexual abuse: No ROS Obtained: Yes All systems reviewed & no additional complaints except as documented Constitutional Constitutional: Reports system reviewed and no additional complaints, except as documented Eyes Eyes: Reports system reviewed and no additional complaints, except as documented ENT Ears, Nose, Mouth, and Throat: Reports system reviewed and no additional complaints, except as documented, Reports as per HPI, Reports nasal congestion, Reports nasal discharge, Reports post nasal drip, Reports sinus pain, Reports sinus pressure and Reports sore throat Cardiovascular Cardiovascular: Reports system reviewed and no additional complaints, except as documented Respiratory Respiratory: Reports system reviewed and no additional complaints, except as documented Gastrointestinal Gastrointestingal: Reports system reviewed and no additional complaints, except as documented Physical Exam General General appearance: alert and in no apparent distress Head Head exam: atraumatic Eye Eye exam: Present normal appearance and PERRL ENT ENT exam: Present mucous membranes moist and TM's normal bilaterally Expanded ENT Exam Throat exam: Present tonsillar erythema Respiratory Respiratory exam: Present normal lung sounds bilaterally Cardiovascular Cardiovascular exam: Present regular rate and normal rhythm Abdominal Exam Abdominal exam: Present soft and normal bowel sounds Neurological Exam Neurological exam: Present alert and oriented X3 Skin Skin exam: Present warm and intact Medical Decision Making Medical Records Medical records reviewed: Yes I reviewed the patient's medical records. Solo Inquiry Pt receiving controlled substance: No Solo was queried for this patient: No Vital Signs: 12/15/23 08:35 Temperature 98.1 F Temperature Source Oral Pulse Rate [Left Brachial] 109 H Respiratory Rate 20 Blood Pressure [Left Arm] 140/84 Blood Pressure Mean [Left Arm] 102 Blood Pressure Source [Left Arm] Automatic Cuff Blood Pressure Position [Left Arm] Sitting 02 Sat by Pulse Oximetry 95 Oxygen Delivery Method Room Air Lab Data Lab results reviewed: Yes I reviewed the patient's lab results. Lab Results 12/15/23 08:42: Strep Scn Rapid Clinic Negative Orders (Tests/Meds): ORDERS Category Date Time Status Rapid PCR Covid and Flu A/B Stat Lab 12/15/23 09:08 Ordered Strep Screen Confirmation Stat Micro 12/15/23 08:42 Received
[2023-12-15 09:23] VITALS: BP 140/84; PULSE 109; RESP 20; TEMP 36.7; O2SAT 95
[2023-12-15 09:33] LABS: Coronavirus 19, PCR Not Detected (NotDetected); Influenza A, PCR Not Detected (NotDetected); Influenza B, PCR Not Detected (NotDetected)
== END 2023-12-15 09:27 | disposition home or self-care (01) ==
PROVIDERS: Emergency Provider Nurse Practitioner Family
DX: R51.9 Headache, unspecified (principal); R05.9 Cough, unspecified; R07.0 Pain in throat; J06.9 Acute upper respiratory infection, unspecified; R09.81 Nasal congestion; Z20.822 Contact with and (suspected) exposure to COVID-19
CPT/HCPCS: 87636; 87880; 99212; 99213; G0463

== ENCOUNTER 2023-12-19 05:45 | Observation (INO) | payer BC, SELFPAY ==
[2023-12-19] VITALS (15 sets, daily range): BP systolic 110–149; BP diastolic 49–87; PULSE 77–124; RESP 13–22; TEMP 36.6–36.9; O2SAT 91–96; BMI 31.8; BMI 32.1
--- NOTE | 2023-12-19 06:08 | HMH.EDGENADL ---
Discharge Plan Disposition Patient Disposition: Admitted Clinical Impressions Clinical Impression: Community acquired pneumonia Discharge ED Provider: Golden Benavides General Adult HPI <Wayne Flower MD - Last Filed: 12/19/23 23:25> General Chief complaint: PAIN Stated complaint: sore throat, pain Time Seen by Provider: 12/19/23 05:45 History of Present Illness HPI narrative: 43-year-old female with history of asplenia secondary to prior ectopic as well as type 2 diabetes presents for worsening illness. She reports that she was feeling bad last week, was swab negative for strep COVID and flu. She will continue to feel bad and on Sunday was swabbed again at her PCPs office and was positive for strep. She was given IM ceftriaxone and a steroid, and was placed on doxycycline for empiric coverage of pneumonia because she also had a cough. She reports that she has been taking the doxycycline as prescribed but continues to feel significantly worse. She reports she has not been on to get out of bed for the last couple of days. She reports that she is sometimes peeing on herself which is abnormal for her. She reports that she typically get sick quickly. Related Data Home Medications ?Medication ?Instructions ?Recorded ?Confirmed bisoprolol fumarate 10 mg tablet 10 mg PO DAILY 10/02/20 12/19/23 fenofibrate 160 mg tablet 160 mg PO DAILY 01/16/22 12/19/23 cholecalciferol (vitamin D3) 125 125 mcg PO DAILY 02/08/23 12/19/23 mcg (5,000 unit) tablet (Vitamin D3) ferrous sulfate 325 mg (65 mg 325 mg PO Q48H 02/08/23 12/19/23 iron) tablet (FeroSul) gabapentin 300 mg capsule 300 mg PO BIDP PRN Neuropathic Pain 03/05/23 12/19/23 rosuvastatin 20 mg tablet 20 mg PO DAILY 06/06/23 12/19/23 albuterol sulfate 90 mcg/actuation 2 puff inhalation Q4HP PRN 12/19/23 12/19/23 aerosol inhaler Shortness Of Breath desvenlafaxine succinate 100 mg 100 mg PO DAILY 12/19/23 12/19/23 tablet,extended release 24 hr (Pristiq) dextromethorphan IR 45 1 tab PO BID 12/19/23 12/19/23 mg-bupropion ER 105 mg biphasic tablet (Auvelity) diazepam 10 mg tablet (Valium) 10 mg PO BIDP PRN anxiety 12/19/23 12/19/23 insulin glargine U-300 conc 300 10 unit SQ HS 12/19/23 12/19/23 unit/mL (3 mL) subcutaneous pen (Toujeo Max U-300 SoloStar) insulin lispro 100 unit/mL 10 unit SQ TID 12/19/23 12/19/23 subcutaneous pen (Humalog KwikPen (U-100) Insulin) tirzepatide 10 mg/0.5 mL 10 mg SQ WEEKLY 12/19/23 12/19/23 subcutaneous pen injector (Mounjaro) triamterene 37.5 1 tab PO DAILYP PRN Edema 12/19/23 12/19/23 mg-hydrochlorothiazide 25 mg tablet Allergies Allergy/AdvReac Type Severity Reaction Status Date / Time No Known Allergies Allergy Verified 11/05/23 16:07 [facility] <Wayne Flower MD - Last Filed: 12/19/23 23:25> [facility] Disclaimer: The information contained in this section may have been updated after the patient was seen, as this information can be updated by other users. Medical History , PICTURES EDITOR) COVID-19 Bacteremia Asplenia Fever Acute hypokalemia Cough Acute viral syndrome General weakness Leukocytosis COVID-19 Hypertension Gastroenteritis Acute viral syndrome Grief Depression Migraine Diabetes mellitus, type 2 Hyperlipidemia Generalized anxiety disorder Type 2 diabetes mellitus Diabetes mellitus Surgical History , PICTURES EDITOR) History of splenectomy History of cholecystectomy History of appendectomy Family History , PICTURES EDITOR) Diabetes Father Grandfather FHx: mental illness Mother Cancer Grandmother Social History Smoking Status: Unknown if ever smoked second hand exposure: No alcohol intake: never substance use type: denies use current occupational status: employed and other details: she is in the process of getting a job; she is interviewing Travel in the last 8 weeks: None adopted: No caregiver/support person: Yes (she takes care of her grand-daughter) foster care: No household members: spouse housing: house marital status: number of children: 1 number of grandchildren: 1 education level: high school service: No senior care: No 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[employer] current occupational exposures/hazards: No Hx Recent Travel: No sexually active: Yes caffeine: Yes physical activity: none working smoke detector in home: Yes fire extinguisher in home: Yes carbon monox detector in home: No firearms in home: Yes firearms unloaded and locked: Yes do you feel safe at home: Yes victim of physical abuse: No victim of emotional abuse: No victim of sexual abuse: No <Wayne Flower MD - Last Filed: 12/19/23 23:25> ROS Obtained: Yes All systems reviewed & no additional complaints except as documented Physical Exam <Wayne Flower MD - Last Filed: 12/19/23 23:25> General General appearance: alert and in no apparent distress Head Head exam: atraumatic and normocephalic Eye Eye exam: Present normal appearance, PERRL and EOMI ENT ENT exam: Present mucous membranes dry and normal external ear exam Neck Neck exam: Present normal inspection and full ROM Chest Chest inspection: Present normal inspection and symmetric chest wall rise; Absent tenderness Respiratory Respiratory exam: Present normal lung sounds bilaterally; Absent respiratory distress Cardiovascular Cardiovascular exam: Present regular rate and normal rhythm Abdominal Exam Abdominal exam: Present soft; Absent distention, tenderness or guarding Extremities Exam Extremities exam: Present normal inspection; Absent edema or joint swelling Back Exam Back exam: Present normal inspection; Absent tenderness Neurological Exam Neurological exam: Present alert and oriented X3; Absent motor sensory deficit Psychiatric Psychiatric exam: Present normal affect and normal mood Skin Skin exam: Present warm, dry and normal color Lymphatic Lymphatic Findings: no adenopathy Medical Decision Making <Wayne Flower MD - Last Filed: 12/19/23 23:25> Medical Records Medical records reviewed: Yes I reviewed the patient's medical records. Solo Inquiry Pt receiving controlled substance: No Solo was queried for this patient: No Vital Signs: 12/19/23 05:54 12/19/23 06:15 12/19/23 06:30 Temperature 98.4 F Temperature Source Oral Pulse Rate 107 H 90 Pulse Rate [Left] 124 H Respiratory Rate 20 22 Blood Pressure 149/76 H 139/72 Blood Pressure [Right Arm] 115/87 Blood Pressure Mean [Right Arm] 96 Blood Pressure Source Blood Pressure Position 02 Sat by Pulse Oximetry 95 91 L 96 Oxygen Delivery Method Room Air Room Air 12/19/23 07:00 12/19/23 07:30 12/19/23 08:00 Temperature Temperature Source Pulse Rate 96 H 101 H 103 H Pulse Rate [Left] Respiratory Rate 17 17 20 Blood Pressure 121/74 133/84 121/81 Blood Pressure [Right Arm] Blood Pressure Mean [Right Arm] Blood Pressure Source Blood Pressure Position 02 Sat by Pulse Oximetry 92 L 92 L 92 L Oxygen Delivery Method 12/19/23 08:43 12/19/23 09:00 12/19/23 09:35 Temperature 98.0 F Temperature Source Oral Pulse Rate 100 H 92 H 92 H Pulse Rate [Left] Respiratory Rate 19 13 13 Blood Pressure 131/81 133/72 133/72 Blood Pressure [Right Arm] Blood Pressure Mean [Right Arm] Blood Pressure Source Automatic Cuff Blood Pressure Position Sitting 02 Sat by Pulse Oximetry 93 L 92 L Oxygen Delivery Method Room Air Room Air Room Air Lab Data Lab results reviewed: Yes I reviewed the patient's lab results. Lab Results 12/19/23 06:05: WBC 9.1, RBC 5.06, Hgb 15.2, Hct 49.7 H, MCV 98.4, MCH 30.0, MCHC 30.5 L, RDW 14.2, Plt Count 484 H, MPV 10.4, Neut % (Auto) 33.9 L, Lymph % (Auto) 45.6, [place] % (Auto) 17.2 H, Eos % (Auto) 1.5, Baso % (Auto) 1.9, Neut # (Auto) 3.1, Lymph # (Auto) 4.1, [place] # (Auto) 1.6 H, Eos # (Auto) 0.1, Baso # (Auto) 0.2, Sodium 132 L, Potassium 4.2, Chloride 101, Carbon Dioxide 22, Anion Gap 13.2, BUN 15, Creatinine 0.80, Estimated Creat Clear 127, Estimated GFR 78, Est GFR ( Amer) 94, Glucose 364 H, Calcium 9.6, Magnesium 1.6, Total Bilirubin 0.6, AST 29, ALT 26, Alkaline Phosphatase 149 H, Total Protein 7.6, Albumin 4.0, Globulin 3.6 H, Albumin/Globulin Ratio 1.1 12/19/23 06:16: SARS-CoV-2 (PCR) Not detected, Influenza A Untype (PCR) Not detected, Influenza Type B (PCR) Not detected 12/19/23 08:29: Urine Color Yellow, Urine Appearance Clear, Urine pH 5.5, Ur Specific [place] 1.020, Urine Protein Negative, Urine Glucose (UA) 3+, Urine Ketones 1+, Urine Blood 3+, Urine Nitrate Negative, Urine Bilirubin Negative, Urine Urobilinogen 0.2, Ur Leukocyte Esterase Negative, Urine RBC 20-50, Urine WBC Occasional, Ur Squamous Epith Cells Occasional, Urine Bacteria Trace 12/20/23 05:45 12/20/23 05:45 Orders (Tests/Meds): ED MEDICATIONS Generic Name Dose Route Start Last Admin Trade Name Freq PRN Reason Stop Dose Admin Acetaminophen 650 mg 12/19/23 10:19 12/20/23 10:27 Acetaminophen 325mg Tab PO 01/18/24 10:18 650 mg Q4HP PRN Administration Fever or Mild Pain (1-3) Al Hydrox/Mg Hydrox/Simethicone 30 ml 12/19/23 10:19 Aluminum/Magnesium/Simethicone 30ml Udc PO 01/18/24 10:18 QIDP PRN Dyspepsia Albuterol Sulfate 2.5 mg 12/19/23 10:11 Albuterol 0.083% 2.5 Mg/3 Ml Neb 01/18/24 10:10 Q4HP PRN Shortness Of Breath Albuterol Sulfate 2 puff 12/19/23 17:05 Albuterol-Hfa 90mcg/Puff Inhaler 8gm 01/18/24 17:04 Q4HP PRN Shortness Of Breath Albuterol/Ipratropium 3 ml 12/19/23 12:00 12/20/23 06:11 Ipratropium/Albuterol 3 Ml Neb 01/18/24 11:59 3 ml Q6RT AURELIA Administration Atorvastatin Calcium 40 mg 12/19/23 21:00 12/19/23 20:47 Atorvastatin 40mg Tablet PO 01/18/24 20:59 40 mg HS AURELIA Administration Benzonatate 100 mg 12/19/23 17:07 12/20/23 08:58 Benzonatate 100mg Capsule PO 01/18/24 17:06 100 mg Q4HP PRN Administration Cough Bisoprolol Fumarate 10 mg 12/20/23 09:00 12/20/23 08:58 Bisoprolol 5mg Tablet PO 01/19/24 08:59 10 mg DAILY AURELIA Administration Diazepam 10 mg 12/19/23 17:05 12/19/23 22:12 Diazepam 10mg Tablet PO 01/18/24 17:04 10 mg BIDP PRN Administration anxiety Enoxaparin Sodium 40 mg 12/19/23 10:30 12/20/23 08:59 Enoxaparin 40mg/0.4ml Syringe SQ 01/18/24 10:29 40 mg DAILY AURELIA Administration Fenofibrate 134 mg 12/20/23 09:00 12/20/23 08:59 Fenofibrate 134mg Capsule PO 01/19/24 08:59 134 mg DAILY AURELIA Administration Ferrous Sulfate 325 mg 12/19/23 17:15 12/19/23 17:38 Ferrous Sulfate 325mg Tablet PO 01/18/24 17:14 325 mg Q48H AURELIA Administration Gabapentin 300 mg 12/19/23 17:05 Gabapentin 300mg Capsule PO 01/18/24 17:04 BIDP PRN Neuropathic Pain Guaifenesin 150 mg 12/19/23 17:07 12/20/23 03:31 Guaifenesin 200mg/10ml Syrup Udc PO 01/18/24 17:06 150 mg Q4HP PRN Administration Cough Piperacillin Sod/Tazobactam 100 mls @ 200 mls/hr 12/19/23 10:15 12/20/23 09:18 Sod 4.5 gm/ Sodium Chloride IV 12/26/23 10:14 Not Given Q6H AURELIA Linezolid 600 mg in 300 mls @ 300 mls/hr 12/19/23 11:00 12/19/23 23:00 Zyvox 600mg/300ml Premix Bag IV 12/26/23 10:59 300 mls/hr Q12H AURELIA Administration Sodium Chloride 1,000 mls @ 100 mls/hr 12/19/23 10:30 12/20/23 06:17 Sod Chlor 0.9% 1000ml Bag IV 01/18/24 10:29 100 mls/hr .Q10H AURELIA Administration Insulin Human Lispro 0 unit 12/19/23 11:00 12/20/23 10:28 Humalog 100 Units/Ml 10ml Vial (Ssi) SQ 01/18/24 10:59 8 unit ACHS AURELIA Administration Protocol Methylprednisolone Sodium Succinate 40 mg 12/19/23 10:30 12/20/23 09:35 Methylprednisolone Sod Succ 40mg Vial IV 12/21/23 10:29 Not Given Q6H AURELIA Morphine Sulfate 2 mg 12/19/23 10:19 Morphine 2mg/Ml Syringe IV 01/18/24 10:18 Q4HP PRN Moderate Pain (4-6) Morphine Sulfate 4 mg 12/19/23 10:19 Morphine 4mg/Ml Syringe IV 01/18/24 10:18 Q4HP PRN Severe Pain (7-10) Non-Formulary Medication 100 mg 12/19/23 17:15 12/20/23 09:03 Desvenlafaxine Succinate [Pristiq] PO 01/18/24 17:14 Not Given DAILY AURELIA Non-Formulary Medication 1 tab 12/19/23 21:00 12/20/23 09:03 Dextromethorphan-Bupropion [Auvelity] PO 01/18/24 20:59 Not Given BID AURELIA Ondansetron HCl 4 mg 12/19/23 10:19 Ondansetron 4mg/2ml Vial IV 01/18/24 10:18 Q8HP PRN Nausea Sodium Chloride 3 ml 12/19/23 10:11 12/19/23 11:32 Sodium Chloride 3% 15ml Neb IH 01/18/24 10:10 3 ml ONCE PRN Administration INDUCE SPUTUM COLLECTION Sodium Chloride 10 ml 12/19/23 10:19 Sodium Chloride 0.9% 10ml Flush Syringe IV 01/18/24 10:18 NEEDED PRN Maintain IV Site Triamterene/Hydrochlorothiazide 1 each 12/19/23 17:05 Hctz 25mg/Triamterene 37.5mg Tablet PO 01/18/24 17:04 DAILYP PRN Edema Vitamin D 25 mcg 12/20/23 09:00 12/20/23 08:59 Cholecalciferol 1,000 Units (25mcg) Tablet PO 01/19/24 08:59 25 mcg DAILY AURELIA Administration Discontinued Medications Generic Name Dose Route Start Last Admin Trade Name Freq PRKimberley Reason Stop Dose Admin Acetaminophen 1,000 mg 12/19/23 06:00 12/19/23 07:58 Acetaminophen 500mg Tab PO 12/19/23 06:01 1,000 mg ONCE ONE Administration Sodium Chloride 1,000 mls @ 999 mls/hr 12/19/23 06:00 12/19/23 08:47 Sod Chlor 0.9% 1000ml Bag IV 12/19/23 08:00 999 mls/hr .Q1H1M AURELIA Administration Ceftriaxone Sodium 2 gm/ 50 mls @ 100 mls/hr 12/19/23 06:05 12/19/23 08:53 Sodium Chloride IV 12/19/23 06:34 100 mls/hr ONCE ONE Administration Vancomycin/PEG/NADA/Lysine/Water 1.75 gm in 350 mls @ 175 mls/hr 12/19/23 08:00 12/19/23 07:58 Vancomycin 1.75gm/350ml (Peg) Premix IV 12/19/23 09:59 175 mls/hr ONCE ONE Administration Non-Formulary Medication 10 mg 12/19/23 17:15 12/19/23 17:38 Bisoprolol Fumarate PO 01/18/24 17:14 10 mg DAILY AURELIA Administration Non-Formulary Medication 160 mg 12/19/23 17:15 12/19/23 17:38 Fenofibrate PO 01/18/24 17:14 Not Given DAILY AURELIA Non-Formulary Medication 10 unit 12/19/23 21:00 12/19/23 20:47 Insulin Glargine U-300 Conc [Toujeo Max U-300 Solostar] SQ 01/18/24 20:59 10 unit HS AURELIA Administration Non-Formulary Medication 10 unit 12/19/23 21:00 12/19/23 20:49 Insulin Lispro [Humalog Kwikpen Insulin] SQ 01/18/24 20:59 10 unit TID AURELIA Administration Non-Formulary Medication 10 mg 12/19/23 17:15 12/19/23 17:38 Tirzepatide [Mounjaro] SQ 01/18/24 17:14 Not Given WEEKLY AURELIA Ondansetron HCl 4 mg 12/19/23 06:00 12/19/23 07:58 Ondansetron 4mg/2ml Vial IV 12/19/23 06:01 4 mg ONCE ONE Administration ORDERS Category Date Time Status XR chest portable Routine Exams 12/19/23 07:20 Completed CBC w/Auto Diff [Complete Blood Count Auto Diff] Stat Lab 12/19/23 06:05 Completed CMP [Comprehensive Metabolic Panel] Stat Lab 12/19/23 06:05 Completed Magnesium Stat Lab 12/19/23 06:05 Completed Rapid PCR Covid and Flu A/B Routine Lab 12/19/23 06:16 Completed UA [Urinalysis and Microscopic] Stat Lab 12/19/23 08:29 Completed Tissue Perfus/Sepsis Re-Eval Sepsis Re-Evaluation Performed: Yes Date Performed: 12/19/23 Time Performed: 06:12 Medical Decision Narrative: 43-year-old female with history of asplenia and type 2 diabetes presents for worsening illness as detailed in HPI.. History was obtained via interactive discussion with patient, chart review. On arrival, patient is afebrile, tachycardic to 130, pale and uncomfortable appearing. Full physical exam performed and significant for clear oropharynx, clear lungs bilaterally, dry mucous membranes. Differential includes but is not limited to overwhelming sepsis in the setting of asplenia, dehydration, pneumonia, UTI, bacteremia Patient was given 2 L IV fluid bolus (patient does not require full 30 mL/kg bolus at this time), 2 g ceftriaxone, vancomycin for coverage of sepsis in the setting of asplenia, for symptomatic management and correction of underlying abnormalities. Workup initiated including blood cultures x 2, urine, urine culture, chest x-ray, CBC CMP mag viral swab. Care handed off to oncoming physician prior to workup results or disposition. <Golden Benavides MD - Last Filed: 12/20/23 10:52> Vital Signs: 12/19/23 05:54 12/19/23 06:15 12/19/23 06:30 Temperature 98.4 F Temperature Source Oral Pulse Rate 107 H 90 Pulse Rate [Left] 124 H Respiratory Rate 20 22 Blood Pressure 149/76 H 139/72 Blood Pressure [Right Arm] 115/87 Blood Pressure Mean [Right Arm] 96 Blood Pressure Source Blood Pressure Position 02 Sat by Pulse Oximetry 95 91 L 96 Oxygen Delivery Method Room Air Room Air 12/19/23 07:00 12/19/23 07:30 12/19/23 08:00 Temperature Temperature Source Pulse Rate 96 H 101 H 103 H Pulse Rate [Left] Respiratory Rate 17 17 20 Blood Pressure 121/74 133/84 121/81 Blood Pressure [Right Arm] Blood Pressure Mean [Right Arm] Blood Pressure Source Blood Pressure Position 02 Sat by Pulse Oximetry 92 L 92 L 92 L Oxygen Delivery Method 12/19/23 08:43 12/19/23 09:00 12/19/23 09:35 Temperature 98.0 F Temperature Source Oral Pulse Rate 100 H 92 H 92 H Pulse Rate [Left] Respiratory Rate 19 13 13 Blood Pressure 131/81 133/72 133/72 Blood Pressure [Right Arm] Blood Pressure Mean [Right Arm] Blood Pressure Source Automatic Cuff Blood Pressure Position Sitting 02 Sat by Pulse Oximetry 93 L 92 L Oxygen Delivery Method Room Air Room Air Room Air Lab Data Lab Results 12/19/23 06:05: WBC 9.1, RBC 5.06, Hgb 15.2, Hct 49.7 H, MCV 98.4, MCH 30.0, MCHC 30.5 L, RDW 14.2, Plt Count 484 H, MPV 10.4, Neut % (Auto) 33.9 L, Lymph % (Auto) 45.6, [place] % (Auto) 17.2 H, Eos % (Auto) 1.5, Baso % (Auto) 1.9, Neut # (Auto) 3.1, Lymph # (Auto) 4.1, [place] # (Auto) 1.6 H, Eos # (Auto) 0.1, Baso # (Auto) 0.2, Sodium 132 L, Potassium 4.2, Chloride 101, Carbon Dioxide 22, Anion Gap 13.2, BUN 15, Creatinine 0.80, Estimated Creat Clear 127, Estimated GFR 78, Est GFR ( Amer) 94, Glucose 364 H, Calcium 9.6, Magnesium 1.6, Total Bilirubin 0.6, AST 29, ALT 26, Alkaline Phosphatase 149 H, Total Protein 7.6, Albumin 4.0, Globulin 3.6 H, Albumin/Globulin Ratio 1.1 12/19/23 06:16: SARS-CoV-2 (PCR) Not detected, Influenza A Untype (PCR) Not detected, Influenza Type B (PCR) Not detected 12/19/23 08:29: Urine Color Yellow, Urine Appearance Clear, Urine pH 5.5, Ur Specific [place] 1.020, Urine Protein Negative, Urine Glucose (UA) 3+, Urine Ketones 1+, Urine Blood 3+, Urine Nitrate Negative, Urine Bilirubin Negative, Urine Urobilinogen 0.2, Ur Leukocyte Esterase Negative, Urine RBC 20-50, Urine WBC Occasional, Ur Squamous Epith Cells Occasional, Urine Bacteria Trace Orders (Tests/Meds): ED MEDICATIONS Generic Name Dose Route Start Last Admin Trade Name Freq PRN Reason Stop Dose Admin Acetaminophen 650 mg 12/19/23 10:19 12/20/23 10:27 Acetaminophen 325mg Tab PO 01/18/24 10:18 650 mg Q4HP PRN Administration Fever or Mild Pain (1-3) Al Hydrox/Mg Hydrox/Simethicone 30 ml 12/19/23 10:19 Aluminum/Magnesium/Simethicone 30ml Udc PO 01/18/24 10:18 QIDP PRN Dyspepsia Albuterol Sulfate 2.5 mg 12/19/23 10:11 Albuterol 0.083% 2.5 Mg/3 Ml Neb 01/18/24 10:10 Q4HP PRN Shortness Of Breath Albuterol Sulfate 2 puff 12/19/23 17:05 Albuterol-Hfa 90mcg/Puff Inhaler 8gm 01/18/24 17:04 Q4HP PRN Shortness Of Breath Albuterol/Ipratropium 3 ml 12/19/23 12:00 12/20/23 06:11 Ipratropium/Albuterol 3 Ml Neb 01/18/24 11:59 3 ml Q6RT AURELIA Administration Atorvastatin Calcium 40 mg 12/19/23 21:00 12/19/23 20:47 Atorvastatin 40mg Tablet PO 01/18/24 20:59 40 mg HS AURELIA Administration Benzonatate 100 mg 12/19/23 17:07 12/20/23 08:58 Benzonatate 100mg Capsule PO 01/18/24 17:06 100 mg Q4HP PRN Administration Cough Bisoprolol Fumarate 10 mg 12/20/23 09:00 12/20/23 08:58 Bisoprolol 5mg Tablet PO 01/19/24 08:59 10 mg DAILY AURELIA Administration Diazepam 10 mg 12/19/23 17:05 12/19/23 22:12 Diazepam 10mg Tablet PO 01/18/24 17:04 10 mg BIDP PRN Administration anxiety Enoxaparin Sodium 40 mg 12/19/23 10:30 12/20/23 08:59 Enoxaparin 40mg/0.4ml Syringe SQ 01/18/24 10:29 40 mg DAILY AURELIA Administration Fenofibrate 134 mg 12/20/23 09:00 12/20/23 08:59 Fenofibrate 134mg Capsule PO 01/19/24 08:59 134 mg DAILY AURELIA Administration Ferrous Sulfate 325 mg 12/19/23 17:15 12/19/23 17:38 Ferrous Sulfate 325mg Tablet PO 01/18/24 17:14 325 mg Q48H AURELIA Administration Gabapentin 300 mg 12/19/23 17:05 Gabapentin 300mg Capsule PO 01/18/24 17:04 BIDP PRN Neuropathic Pain Guaifenesin 150 mg 12/19/23 17:07 12/20/23 03:31 Guaifenesin 200mg/10ml Syrup Udc PO 01/18/24 17:06 150 mg Q4HP PRN Administration Cough Piperacillin Sod/Tazobactam 100 mls @ 200 mls/hr 12/19/23 10:15 12/20/23 09:18 Sod 4.5 gm/ Sodium Chloride IV 12/26/23 10:14 Not Given Q6H AURELIA Linezolid 600 mg in 300 mls @ 300 mls/hr 12/19/23 11:00 12/19/23 23:00 Zyvox 600mg/300ml Premix Bag IV 12/26/23 10:59 300 mls/hr Q12H AURELIA Administration Sodium Chloride 1,000 mls @ 100 mls/hr 12/19/23 10:30 12/20/23 06:17 Sod Chlor 0.9% 1000ml Bag IV 01/18/24 10:29 100 mls/hr .Q10H AURELIA Administration Insulin Human Lispro 0 unit 12/19/23 11:00 12/20/23 10:28 Humalog 100 Units/Ml 10ml Vial (Ssi) SQ 01/18/24 10:59 8 unit ACHS AURELIA Administration Protocol Methylprednisolone Sodium Succinate 40 mg 12/19/23 10:30 12/20/23 09:35 Methylprednisolone Sod Succ 40mg Vial IV 12/21/23 10:29 Not Given Q6H AURELIA Morphine Sulfate 2 mg 12/19/23 10:19 Morphine 2mg/Ml Syringe IV 01/18/24 10:18 Q4HP PRN Moderate Pain (4-6) Morphine Sulfate 4 mg 12/19/23 10:19 Morphine 4mg/Ml Syringe IV 01/18/24 10:18 Q4HP PRN Severe Pain (7-10) Non-Formulary Medication 100 mg 12/19/23 17:15 12/20/23 09:03 Desvenlafaxine Succinate [Pristiq] PO 01/18/24 17:14 Not Given DAILY AURELIA Non-Formulary Medication 1 tab 12/19/23 21:00 12/20/23 09:03 Dextromethorphan-Bupropion [Auvelity] PO 01/18/24 20:59 Not Given BID AURELIA Ondansetron HCl 4 mg 12/19/23 10:19 Ondansetron 4mg/2ml Vial IV 01/18/24 10:18 Q8HP PRN Nausea Sodium Chloride 3 ml 12/19/23 10:11 12/19/23 11:32 Sodium Chloride 3% 15ml Neb IH 01/18/24 10:10 3 ml ONCE PRN Administration INDUCE SPUTUM COLLECTION Sodium Chloride 10 ml 12/19/23 10:19 Sodium Chloride 0.9% 10ml Flush Syringe IV 01/18/24 10:18 NEEDED PRN Maintain IV Site Triamterene/Hydrochlorothiazide 1 each 12/19/23 17:05 Hctz 25mg/Triamterene 37.5mg Tablet PO 01/18/24 17:04 DAILYP PRN Edema Vitamin D 25 mcg 12/20/23 09:00 12/20/23 08:59 Cholecalciferol 1,000 Units (25mcg) Tablet PO 01/19/24 08:59 25 mcg DAILY AURELIA Administration Discontinued Medications Generic Name Dose Route Start Last Admin Trade Name Freq PRN Reason Stop Dose Admin Acetaminophen 1,000 mg 12/19/23 06:00 12/19/23 07:58 Acetaminophen 500mg Tab PO 12/19/23 06:01 1,000 mg ONCE ONE Administration Sodium Chloride 1,000 mls @ 999 mls/hr 12/19/23 06:00 12/19/23 08:47 Sod Chlor 0.9% 1000ml Bag IV 12/19/23 08:00 999 mls/hr .Q1H1M AURELIA Administration Ceftriaxone Sodium 2 gm/ 50 mls @ 100 mls/hr 12/19/23 06:05 12/19/23 08:53 Sodium Chloride IV 12/19/23 06:34 100 mls/hr ONCE ONE Administration Vancomycin/PEG/NADA/Lysine/Water 1.75 gm in 350 mls @ 175 mls/hr 12/19/23 08:00 12/19/23 07:58 Vancomycin 1.75gm/350ml (Peg) Premix IV 12/19/23 09:59 175 mls/hr ONCE ONE Administration Non-Formulary Medication 10 mg 12/19/23 17:15 12/19/23 17:38 Bisoprolol Fumarate PO 01/18/24 17:14 10 mg DAILY AURELIA Administration Non-Formulary Medication 160 mg 12/19/23 17:15 12/19/23 17:38 Fenofibrate PO 01/18/24 17:14 Not Given DAILY AURELIA Non-Formulary Medication 10 unit 12/19/23 21:00 12/19/23 20:47 Insulin Glargine U-300 Conc [Toujeo Max U-300 Solostar] SQ 01/18/24 20:59 10 unit HS AURELIA Administration Non-Formulary Medication 10 unit 12/19/23 21:00 12/19/23 20:49 Insulin Lispro [Humalog Kwikpen Insulin] SQ 01/18/24 20:59 10 unit TID AURELIA Administration Non-Formulary Medication 10 mg 12/19/23 17:15 12/19/23 17:38 Tirzepatide [Mounjaro] SQ 01/18/24 17:14 Not Given WEEKLY AURELIA Ondansetron HCl 4 mg 12/19/23 06:00 12/19/23 07:58 Ondansetron 4mg/2ml Vial IV 12/19/23 06:01 4 mg ONCE ONE Administration ORDERS Category Date Time Status XR chest portable Routine Exams 12/19/23 07:20 Completed CBC w/Auto Diff [Complete Blood Count Auto Diff] Stat Lab 12/19/23 06:05 Completed CMP [Comprehensive Metabolic Panel] Stat Lab 12/19/23 06:05 Completed Magnesium Stat Lab 12/19/23 06:05 Completed Rapid PCR Covid and Flu A/B Routine Lab 12/19/23 06:16 Completed UA [Urinalysis and Microscopic] Stat Lab 12/19/23 08:29 Completed Medical Decision Narrative: 43-year-old female with history of asplenia and type 2 diabetes presents for worsening illness as detailed in HPI.. History was obtained via interactive discussion with patient, chart review. On arrival, patient is afebrile, tachycardic to 130, pale and uncomfortable appearing. Full physical exam performed and significant for clear oropharynx, clear lungs bilaterally, dry mucous membranes. Differential includes but is not limited to overwhelming sepsis in the setting of asplenia, dehydration, pneumonia, UTI, bacteremia Patient was given 2 L IV fluid bolus (patient does not require full 30 mL/kg bolus at this time), 2 g ceftriaxone, vancomycin for coverage of sepsis in the setting of asplenia, for symptomatic management and correction of underlying abnormalities. Workup initiated including blood cultures x 2, urine, urine culture, chest x-ray, CBC CMP mag viral swab. Care handed off to oncoming physician prior to workup results or disposition. Golden Benavides MD: I assumed care of this patient from the previous emergency medicine physician. Laboratory analysis reveals no leukocytosis, however hyperglycemia, and x-ray imaging concerning for pneumonia. Given history of immunocompromise state, as well as failed course of p.o. antibiotics, patient will benefit from admission to the hospital for further management. I discussed the case with hospitalist who admitted patient. Procedures <Wayne Flower MD - Last Filed: 12/19/23 23:25> Risk/Benefits of Procedure(s) Were Explained: Yes Critical Care <Wayne Flower MD - Last Filed: 12/19/23 23:25> Critical Care Time Critical Care Time: No
--- NOTE | 2023-12-19 06:27 | PC.NURSE ---
VAnc 1.75 verified w/ David from [facility] by KARINA Gomez
--- NOTE | 2023-12-19 06:28 | PC.NURSE ---
KARINA Gomez is hanging Vanc at this time. Med orders are not uploading to the MAR. This RN verified Vanc dose w/ KARINA Gomez
--- NOTE | 2023-12-19 07:20 | XR_ITS ---
PROCEDURE INFORMATION: Exam: XR Chest Exam date and time: 12/19/2023 6:56 AM Age: 43 years old Clinical indication: Cough and fever; Patient HX: Fever, cough TECHNIQUE: Imaging protocol: Radiologic exam of the chest. Views: 1 view. COMPARISON: CR XR CHEST PORTABLE 03/13/2023 6:21 PM FINDINGS: Tubes, catheters and devices: Monitor leads project over the chest. Lungs: Patchy right upper lobe and right basilar airspace disease consistent with pneumonia. Pleural spaces: No significant costophrenic angle blunting. No pneumothorax. Heart/Mediastinum: Heart size is normal. Bones/joints: No acute osseous abnormality. IMPRESSION: Patchy right upper lobe and right basilar airspace disease consistent with pneumonia.
[2023-12-19 07:52] LABS: Basophils # 0.2 K/mm3 (0-0.2); Basophils % 1.9 % (0.1-2.0); Eosinophils # 0.1 K/mm3 (0.0-0.4); Eosinophils % 1.5 % (0.1-12.0); Hematocrit 49.7 % (37.0-47.0); Hemoglobin 15.2 g/dL (12.2-16.2); Lymphocytes # 4.1 K/mm3 (0.7-4.5); Lymphocytes % 45.6 % (10-50); Mean Corpuscular HGB Conc 30.5 g/dL (31.8-35.4); Mean Corpuscular Volume 98.4 fl (81-99); Mean Platelet Volume 10.4 fl (7.4-10.4); Monocytes # 1.6 K/mm3 (0.1-1.0); Monocytes % 17.2 % (1.7-9.3); Neutrophils # 3.1 K/mm3 (1.8-7.8); Neutrophils % 33.9 % (37.0-80.0); Platelet Count 484 K/mm3 (142-424); Red Blood Count 5.06 M/mm3 (4.20-5.40); Red Cell Distribution Width 14.2 % (11.5-17.5); White Blood Count 9.1 K/mm3 (4.8-10.8)
[2023-12-19 07:57] LABS: Chloride 101 mmol/L (98-107)
[2023-12-19 07:58] LABS: Potassium 4.2 mmoL/L (3.5-5.1); Sodium 132 mmol/L (136-145)
[2023-12-19] MEDS: VANCOMYCIN/WATER FOR INJ (PEG) 1.75 GM/350 ML PIGGYBACK IV (07:58)
[2023-12-19] MEDS: ONDANSETRON 4MG/2ML VIAL 4 MG IV (07:58)
[2023-12-19] MEDS: ACETAMINOPHEN 500MG TAB 1000 MG PO (07:58)
[2023-12-19] MEDS: 0.9 % SODIUM CHLORIDE 1000ML 1,000 ML 999 ML IV ×2 (07:58→08:47)
[2023-12-19 08:00] LABS: Alanine Aminotransferase 26 U/L (12-78); Alkaline Phosphatase 149 U/L (38-126); Anion Gap 13.2 mEq/L (5-15); Aspartate Amino Transferase 29 U/L (14-36); Bilirubin,Total 0.6 mg/dl (0.2-1.3); Blood Urea Nitrogen 15 mg/dl (7-17); Carbon Dioxide 22 mmol/L (22.0-30.0); Creatinine Clearance Estimated 127 mL/min (50-200); Estimated Glomerular Filt Rate 78 ml/min (>60); GFR (African American) 94 ML/MIN (>60)
[2023-12-19 08:01] LABS: Albumin/Globulin Ratio 1.1 (1.1-1.8); Calcium 9.6 mg/dl (8.4-10.2); Globulin 3.6 g/dL (1.3-3.2); Glucose 364 mg/dl (74-100); Magnesium 1.6 mg/dl (1.6-2.3); Total Protein,Serum 7.6 g/dl (6.3-8.2)
--- NOTE | 2023-12-19 08:49 | PC.NURSE ---
on phone with hospitalist
[2023-12-19] MEDS: CEFTRIAXONE 1 GM 2 GM in 0.9 % SODIUM CHLORIDE 50 ML IV (08:53)
[2023-12-19 09:06] LABS: Coronavirus 19, PCR Not Detected (NotDetected); Influenza A, PCR Not Detected (NotDetected); Influenza B, PCR Not Detected (NotDetected)
[2023-12-19 09:10] LABS: Appearance,Urine CLEAR (Clear); Blood, Urine 3+ (Negative); Color,Urine YELLOW (Yellow); Glucose,Urine (UA) 3+ (Negative); Ketones,Urine 1+ (Negative); Leukocyte Esterase,Urine Negative (Negative); Nitrate,Urine Negative (Negative); PH,Urine 5.5 (5.0-8.5); Protein,Urine Negative (Negative); Urobilinogen,Urine 0.2 EU/dl (0.2)
[2023-12-19 09:13] LABS: Bilirubin,Urine Negative (Negative)
--- NOTE | 2023-12-19 09:25 | HMH.PHAINT1 ---
Pharmacy Intervention Comments: MEDICATION RECONCILIATION COMPLETED ON PATIENT USING EXTERNAL FILL HISTORY FROM PHARMACY AND DISCHARGE SUMMARY FROM PREVIOUS ADMISSION. -LINDY HUMMEL, MAYD
--- NOTE | 2023-12-19 09:27 | PC.NURSE ---
Report called to Dea Montemayor RN.
--- NOTE | 2023-12-19 09:38 | PC.NURSE ---
Arrived to the floor at 9:38 am by wheelchair
[2023-12-19 09:49] LABS: Microscopic, Urine URINE MICROSCOPIC (MICROSCOPIC); RBC,Urine 20-50 #/hpf (0-3); WBC,Urine Occasional #/hpf (0-3)
[2023-12-19 09:50] LABS: Bacteria,Urine Trace /lpf; Squamous Epithelial Cell,Urine Occasional #/hpf (0-5)
--- NOTE | 2023-12-19 10:24 | EXP.HP ---
History of Present Illness *Admission Date: 12/19/23 *Reason for visit:: Failed outpatient pneumonia treatment *History of present illness: Really nice patient with past medical history of asplenia, diabetes, hypertension. Patient presents with shortness of breath, fevers, chills starting /Sunday. Patient states that symptoms started /Sunday with cough. Patient then noted sore throat/weakness/myalgias/arthralgias on Sunday. Patient visited urgent care with strep test reportedly negative. Patient then states on Sunday she was unable to eat or drink due to illness. Patient also complains of headache, myalgias, arthralgias, weakness all getting worse on Sunday. Patient then noticed febrile illnesses and visited her PCP on Sunday. States in PCP office temperature was 101.8 Fahrenheit. Patient started on doxycycline and given IM Rocephin at PCP. Patient then presented to emergency room [facility] 12/17 with worsening symptoms. Now complains of pleuritic chest discomfort. Denies diarrhea, constipation, abdominal pain. Chest x-ray in emergency room shows bilateral infiltrates. 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 Patient's present with patient in emergency room and collaborates the story. [facility] Disclaimer: The information contained in this section may have been updated after the patient was seen, as this information can be updated by other users. 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) History of splenectomy History of cholecystectomy History of appendectomy Family History , ELEMENTARY SCHOOL BAND DIRECTOR) Diabetes Father Grandfather FHx: mental illness Mother Cancer Grandmother Social History Smoking Status: Unknown if ever smoked second hand exposure: No alcohol intake: never substance use type: denies use current occupational status: employed and other details: she is in the process of getting a job; she is interviewing Travel in the last 8 weeks: None adopted: No caregiver/support person: Yes (she takes care of her grand-daughter) foster care: No household members: spouse housing: house marital status: number of children: 1 number of grandchildren: 1 education level: high school service: No skilled nursing: No 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 current occupational exposures/hazards: No Hx Recent Travel: No sexually active: Yes caffeine: Yes physical activity: none working smoke detector in home: Yes fire extinguisher in home: Yes carbon monox detector in home: No firearms in home: Yes firearms unloaded and locked: Yes do you feel safe at home: Yes victim of physical abuse: No victim of emotional abuse: No victim of sexual abuse: No Review of Systems Constitutional Constitutional: Reports system reviewed and no additional complaints, except as documented Meds Home Medications and Allergies Home Medications ?Medication ?Instructions ?Recorded ?Confirmed ?Type bisoprolol fumarate 10 mg tablet 10 mg PO DAILY 10/02/20 12/19/23 History fenofibrate 160 mg tablet 160 mg PO DAILY 01/16/22 12/19/23 History cholecalciferol (vitamin D3) 125 125 mcg PO DAILY 02/08/23 12/19/23 History mcg (5,000 unit) tablet (Vitamin D3) ferrous sulfate 325 mg (65 mg 325 mg PO Q48H 02/08/23 12/19/23 History iron) tablet (FeroSul) gabapentin 300 mg capsule 300 mg PO BIDP PRN Neuropathic Pain 03/05/23 12/19/23 History rosuvastatin 20 mg tablet 20 mg PO DAILY 06/06/23 12/19/23 History albuterol sulfate 90 mcg/actuation 2 puff inhalation Q4HP PRN 12/19/23 12/19/23 History aerosol inhaler Shortness Of Breath desvenlafaxine succinate 100 mg 100 mg PO DAILY 12/19/23 12/19/23 History tablet,extended release 24 hr (Pristiq) dextromethorphan IR 45 1 tab PO BID 12/19/23 12/19/23 History mg-bupropion ER 105 mg biphasic tablet (Auvelity) diazepam 10 mg tablet (Valium) 10 mg PO BIDP PRN anxiety 12/19/23 12/19/23 History insulin glargine U-300 conc 300 10 unit SQ HS 12/19/23 12/19/23 History unit/mL (3 mL) subcutaneous pen (Toujeo Max U-300 SoloStar) insulin lispro 100 unit/mL 10 unit SQ TID 12/19/23 12/19/23 History subcutaneous pen (Humalog KwikPen (U-100) Insulin) tirzepatide 10 mg/0.5 mL 10 mg SQ WEEKLY 12/19/23 12/19/23 History subcutaneous pen injector (Mounjaro) triamterene 37.5 1 tab PO DAILYP PRN Edema 12/19/23 12/19/23 History mg-hydrochlorothiazide 25 mg tablet New Prescriptions to Start Prescriptions: Allergies Allergy/AdvReac Type Severity Reaction Status Date / Time No Known Allergies Allergy Verified 11/05/23 16:07 Exam Data for Last 24 hours Vital signs and Labs for Last 24 Hours: Temp Pulse Resp BP Pulse Ox O2 Del Method 98.0 F 92 H 13 133/72 92 L Room Air 12/19/23 09:35 12/19/23 09:35 12/19/23 09:35 12/19/23 09:35 12/19/23 09:00 12/19/23 09:35 Laboratory Results - last 24 hr 12/19/23 06:05: WBC 9.1, RBC 5.06, Hgb 15.2, Hct 49.7 H, MCV 98.4, MCH 30.0, MCHC 30.5 L, RDW 14.2, Plt Count 484 H, MPV 10.4, Neut % (Auto) 33.9 L, Lymph % (Auto) 45.6, [place] % (Auto) 17.2 H, Eos % (Auto) 1.5, Baso % (Auto) 1.9, Neut # (Auto) 3.1, Lymph # (Auto) 4.1, [place] # (Auto) 1.6 H, Eos # (Auto) 0.1, Baso # (Auto) 0.2, Sodium 132 L, Potassium 4.2, Chloride 101, Carbon Dioxide 22, Anion Gap 13.2, BUN 15, Creatinine 0.80, Estimated Creat Clear 127, Estimated GFR 78, Est GFR ( Amer) 94, Glucose 364 H, Calcium 9.6, Magnesium 1.6, Total Bilirubin 0.6, AST 29, ALT 26, Alkaline Phosphatase 149 H, Total Protein 7.6, Albumin 4.0, Globulin 3.6 H, Albumin/Globulin Ratio 1.1 12/19/23 06:16: SARS-CoV-2 (PCR) Not detected, Influenza A Untype (PCR) Not detected, Influenza Type B (PCR) Not detected 12/19/23 08:29: Urine Color Yellow, Urine Appearance Clear, Urine pH 5.5, Ur Specific [place] 1.020, Urine Protein Negative, Urine Glucose (UA) 3+, Urine Ketones 1+, Urine Blood 3+, Urine Nitrate Negative, Urine Bilirubin Negative, Urine Urobilinogen 0.2, Ur Leukocyte Esterase Negative, Urine RBC 20-50, Urine WBC Occasional, Ur Squamous Epith Cells Occasional, Urine Bacteria Trace I & O for Last 24 hours: Intake & Output 12/16/23 12/17/23 12/18/23 12/19/23 23:59 23:59 23:59 23:59 Weight 89.358 kg Constitutional Constitutional: mild distress *Routine HEENT Exam Head: Present normocephalic Eye: Present normal accommodation ENT: Present mucous membranes moist *Routine Neck Exam Neck: Present supple and full ROM *Routine Respiratory Exam Respiratory: Present distant breath sounds and diminished air movement *Routine Cardiovascular Exam Cardiovascular: Present RRR and Normal S1 *Routine Abdominal Exam Abdominal: Present soft and normoactive bowel sounds *Routine Rectal Exam Rectal:: deferred *Routine Genitalia Exam Genitalia:: deferred *Routine Extremities Exam Extremities: Present full ROM and normal capillary refill *Routine Skin Exam Skin: Present intact and dry *Routine Neurological Exam Neurological: Present alert and oriented X3 H&P: Result Impressions PROCEDURE INFORMATION: Exam: XR Chest Exam date and time: 12/19/2023 6:56 AM Age: 43 years old Clinical indication: Cough and fever; Patient HX: Fever, cough TECHNIQUE: Imaging protocol: Radiologic exam of the chest. Views: 1 view. COMPARISON: CR XR CHEST PORTABLE 03/13/2023 6:21 PM FINDINGS: Tubes, catheters and devices: Monitor leads project over the chest. Lungs: Patchy right upper lobe and right basilar airspace disease consistent with pneumonia. Pleural spaces: No significant costophrenic angle blunting. No pneumothorax. Heart/Mediastinum: Heart size is normal. Bones/joints: No acute osseous abnormality. IMPRESSION: Patchy right upper lobe and right basilar airspace disease consistent with pneumonia. Assessment and Plan *Assessment and plan (1) Community acquired pneumonia: Status: Acute Category: Medical Code(s): J18.9 - Pneumonia, unspecified organism (2) Upper respiratory infection: Status: Acute Qualifiers: URI type: unspecified viral URI Qualified Code(s): J06.9 - Acute upper respiratory infection, unspecified Category: Medical Code(s): J06.9 - Acute upper respiratory infection, unspecified (3) History of splenectomy: Status: Acute Category: Surgical Code(s): Z90.81 - Acquired absence of spleen (4) Diabetes mellitus, type 2: Status: Acute Qualifiers: Diabetes mellitus complication detail: without coma Diabetes mellitus complication status: with hypoglycemia Diabetes mellitus care home insulin use: with intermediate school teacher use Qualified Code(s): E11.649 - Type 2 diabetes mellitus with hypoglycemia without coma; Z79.4 - intermediate project manager (current) use of insulin Category: Medical Code(s): E11.9 - Type 2 diabetes mellitus without complications (5) Headache: Status: Acute Qualifiers: Headache chronicity pattern: acute headache Headache type: unspecified Intractability: intractable Qualified Code(s): R51.9 - Headache, unspecified Category: Medical Code(s): R51.9 - Headache, unspecified Plan 43-year-old female with past medical history of hypertension, diabetes, asplenia who presents with fevers, shortness of breath, malaise, new oxygen requirement. Patient seen PCP 12/15 and started on p.o. doxycycline and IM Rocephin. Patient presents with worsening symptoms since initiation of antibiotic therapy. Community-acquired pneumonia failed outpatient: ? Start with broad-spectrum antibiotics and downgrade as appropriate. Sputum culture, blood cultures ordered. Empirically start IV Zyvox/Zosyn. Follow inflammatory markers including WBC, procalcitonin, CRP. Scheduled nebulization treatments and as needed. Sputum culture if possible. Diabetes: Sign scale insulin, ACHS Accu-Cheks Hypertension: Continue home management and as needed IV hydralazine if needed PPx: Lovenox subcutaneous CODE STATUS full FEN: Diabetic diet
[2023-12-19 11:11] LABS: Lactic Acid 0.6 mmol/L (0.7-2.1)
[2023-12-19] MEDS: 0.9 % SODIUM CHLORIDE 1000ML 1,000 ML 100 ML IV (11:20)
[2023-12-19] MEDS: ENOXAPARIN 40MG/0.4ML SYRINGE 40 MG SQ (11:20)
[2023-12-19] MEDS: METHYLPREDNISOLONE SOD SUCC 40MG VIAL 40 MG IV ×3 (11:20→22:12)
[2023-12-19] MEDS: PIPERACILLIN/TAZO 4.5 GM in 0.9 % SODIUM CHLORIDE 100 ML IV ×3 (11:20→22:12)
[2023-12-19] MEDS: humaLOG 100 UNITS/ML 10ML VIAL (SSI) SQ ×3 (11:27→20:46)
[2023-12-19 11:29] LABS: Procalcitonin 0.442 ng/mL (0.0-2.0)
[2023-12-19] MEDS: SODIUM CHLORIDE 3% 15ML NEB 3 ML IH (11:32)
[2023-12-19] MEDS: IPRATROPIUM/ALBUTEROL 3 ML NEB IH ×2 (11:32→18:41)
[2023-12-19 11:49] LABS: POC Glucose,Bedside 242 (70-110)
[2023-12-19] MEDS: LINEZOLID 600 MG/300 ML IV.SOLN 300 MG IV ×2 (13:18→23:00)
[2023-12-19] MEDS: ACETAMINOPHEN 325MG TAB 650 MG PO (13:20)
[2023-12-19 17:24] LABS: POC Glucose,Bedside 346 (70-110)
[2023-12-19] MEDS: guaiFENesin 200MG/10ML SYRUP UDC 150 MG PO ×2 (17:38→22:13)
[2023-12-19] MEDS: FERROUS SULFATE 325MG TABLET 325 MG PO (17:38)
--- NOTE | 2023-12-19 18:26 | PC.NURSE ---
A&OX4. TOLERATING RA WELL-ER STATES SHE DID DROP WHILE SLEEPING SO MAY NEED SOME O2 TONIGHT. PT IS INDEPENDENT IN ROOM. HAS INTERMITTENT COUGH, SPUTUM COLLECTED. PT IS RECEIVING PRN COUGH MEDICATION NOW. SEEMS TO HELP. HAS HAD NO OTHER C/O THUS FAR THIS SHIFT. FMAILY REMAINS AT BEDSIDE. PT TOLERATED NEW IV PLACEMENT WELL. VSS.
[2023-12-19 20:21] LABS: POC Glucose,Bedside 454 (70-110)
--- NOTE | 2023-12-19 20:23 | PC.NURSE ---
FSBS 454. J Tulio CARRILLON notified. Patient to receive 15 units S/S.
[2023-12-19] MEDS: INSULIN GLARGINE U 10 EACH SQ (20:47)
[2023-12-19] MEDS: ATORVASTATIN 40MG TABLET 40 MG PO (20:47)
[2023-12-19] MEDS: INSULIN LISPRO SQ (20:49)
[2023-12-19] MEDS: [UNRECOGNIZED DRUG - OTHER] SQ (20:49)
[2023-12-19] MEDS: diazePAM 10MG TABLET 10 MG PO (22:12)
--- NOTE | 2023-12-19 23:08 | PC.NURSE ---
FSBS 311 at this time. J Tulio ABARCA notified.
[2023-12-19 23:18] LABS: POC Glucose,Bedside 311 (70-110)
[2023-12-20] VITALS (9 sets, daily range): BP systolic 99–124; BP diastolic 60–94; PULSE 73–101; RESP 16–18; TEMP 36.4–37.1; O2SAT 90–95; BMI 32.8
[2023-12-20] MEDS: IPRATROPIUM/ALBUTEROL 3 ML NEB IH ×5 (00:28→23:51)
[2023-12-20] MEDS: ACETAMINOPHEN 325MG TAB 650 MG PO ×3 (03:30→19:40)
[2023-12-20] MEDS: guaiFENesin 200MG/10ML SYRUP UDC 150 MG PO ×2 (03:31→23:03)
[2023-12-20] MEDS: PIPERACILLIN/TAZO 4.5 GM in 0.9 % SODIUM CHLORIDE 100 ML IV ×2 (03:33→08:59)
[2023-12-20] MEDS: METHYLPREDNISOLONE SOD SUCC 40MG VIAL 40 MG IV ×4 (03:33→23:03)
--- NOTE | 2023-12-20 03:51 | PC.NURSE ---
PATIENT WITH ELEVATED BLOOD SUGARS SECONDARY TO STEROID ADMINISTRATION. HAS BEEN AWAKE SEVERAL TIMES TONIGHT. C/O RIB AND DIAPHRAGM PAIN FROM COUGHING. RECEIVING PRN ROBITUSSIN AND TYLENOL. RECEIVED VALIUM 10 MG PO AT 2215 FOR ANXIETY. NON-PRODUCTIVE COUGH NOTED. 02 SAT 96% ON ROOM AIR. RECEIVING ZOSYN AND ZYVOX IV ORDERED. VITAL SIGNS STABLE/AFEBRILE.
[2023-12-20] MEDS: humaLOG 100 UNITS/ML 10ML VIAL (SSI) SQ ×4 (05:09→22:21)
[2023-12-20 05:13] LABS: POC Glucose,Bedside 277 (70-110)
[2023-12-20] MEDS: 0.9 % SODIUM CHLORIDE 1000ML 1,000 ML 100 ML IV ×2 (06:17→16:12)
[2023-12-20 06:31] LABS: Basophils # 0.1 K/mm3 (0-0.2); Basophils % 0.8 % (0.1-2.0); Eosinophils % 0.1 % (0.1-12.0); Monocytes # 0.7 K/mm3 (0.1-1.0)
[2023-12-20 06:46] LABS: Hematocrit 41.1 % (37.0-47.0); Lymphocytes % 23.2 % (10-50); Mean Corpuscular HGB Conc 30.2 g/dL (31.8-35.4); Mean Corpuscular Hemoglobin 29.8 pg (27.0-31.2); Mean Corpuscular Volume 98.6 fl (81-99); Mean Platelet Volume 8.8 fl (7.4-10.4); Monocytes % 8.6 % (1.7-9.3); Neutrophils # 5.8 K/mm3 (1.8-7.8); Neutrophils % 67.3 % (37.0-80.0); Platelet Count 461 K/mm3 (142-424); Red Blood Count 4.16 M/mm3 (4.20-5.40); Red Cell Distribution Width 14.2 % (11.5-17.5); White Blood Count 8.6 K/mm3 (4.8-10.8)
[2023-12-20 06:49] LABS: C-Reactive Protein 65.5 mg/L (0-4)
[2023-12-20 07:11] LABS: Chloride 107 mmol/L (98-107); Potassium 4.6 mmoL/L (3.5-5.1); Sodium 134 mmol/L (136-145)
[2023-12-20 07:14] LABS: Anion Gap 14.6 mEq/L (5-15); Blood Urea Nitrogen 14 mg/dl (7-17); Calcium 8.3 mg/dl (8.4-10.2); Carbon Dioxide 17 mmol/L (22.0-30.0); Creatinine Clearance Estimated 210 mL/min (50-200); Estimated Glomerular Filt Rate 134 ml/min (>60); GFR (African American) 162 ML/MIN (>60); Glucose 273 mg/dl (74-100)
[2023-12-20 07:15] LABS: Magnesium 1.8 mg/dl (1.6-2.3)
--- NOTE | 2023-12-20 08:52 | PC.NURSE ---
Md. leong to give zebeta.
[2023-12-20] MEDS: BISOPROLOL 5MG TABLET 10 MG PO (08:58)
[2023-12-20] MEDS: BENZONATATE 100MG CAPSULE 100 MG PO ×2 (08:58→19:40)
[2023-12-20] MEDS: FENOFIBRATE 134MG CAPSULE 134 MG PO (08:59)
[2023-12-20] MEDS: ENOXAPARIN 40MG/0.4ML SYRINGE 40 MG SQ (08:59)
[2023-12-20] MEDS: CHOLECALCIFEROL 1,000 UNITS (25MCG) TABLET 25 MCG PO (08:59)
[2023-12-20 09:03] LABS: Hemoglobin 12.4 g/dL (12.2-16.2)
[2023-12-20 10:22] LABS: POC Glucose,Bedside 276 (70-110)
[2023-12-20] MEDS: LINEZOLID 600 MG/300 ML IV.SOLN 300 MG IV (10:51)
[2023-12-20 11:07] LABS: Procalcitonin 0.284 ng/mL (0.0-2.0)
--- NOTE | 2023-12-20 12:43 | EXP.ACUTE.PN ---
Subjective *Date: 12/20/23 *Time: 12:44 Interval history: Patient suffering from some tachycardia overnight, but patient's beta-hailey restarted this morning. Patient states breathing better versus evaluation by Dr. Harris yesterday. Using nebulizer at time evaluation by Dr. Harris today. Medical Exam Vital signs and Labs for Last 24 Hours: Vital Signs Temp Pulse Pulse Resp BP Pulse Ox O2 Del Method 12/20/23 12:05 Room Air 12/20/23 11:02 76 12/20/23 11:02 81 12/20/23 11:02 91 L Room Air 12/20/23 10:04 Room Air 12/20/23 08:43 Room Air 12/20/23 08:00 Room Air 12/20/23 07:48 97.8 F 91 H 17 99/60 L 92 L Room Air 12/20/23 06:29 Room Air 12/20/23 06:12 87 12/20/23 06:12 85 12/20/23 06:12 90 L Room Air 12/20/23 05:00 Room Air 12/20/23 04:00 98.4 F 90 18 124/62 91 L 12/20/23 03:00 Room Air 12/20/23 00:49 Room Air 12/20/23 00:29 73 12/20/23 00:29 75 12/19/23 23:59 98.3 F 88 16 119/84 96 Room Air 12/19/23 23:00 Room Air 12/19/23 21:00 Room Air 12/19/23 20:00 92 L Room Air 12/19/23 20:00 98.5 F 96 H 16 110/49 L 92 L Room Air 12/19/23 18:42 77 12/19/23 18:42 80 12/19/23 17:00 Room Air 12/19/23 16:00 97.8 F 106 H 18 121/74 94 L Room Air 12/19/23 15:00 Room Air 12/19/23 12:57 Room Air Intake and Output 12/19/23 12/20/23 12/20/23 23:59 07:59 15:59 Intake Total 420 / 1540 1930 / 2600 670 / 2600 Output Total 2 / 2 Balance 418 / 1538 1929 / 2599 670 / 2599 Intake: Intake, Oral Amount 420 / 1140 480 / 750 270 / 750 Intake, Total IV Amount 1450 / 1850 400 / 1850 0.9 % Sodium Chloride 1000ML 1, 950 / 950 000 ml @ 100 mls/hr IV .Q10H [facility] Rx#:[id number] Linezolid 600 mg In 300 ml @ 300 / 600 300 / 600 300 mls/hr IV Q12H [facility] Rx#: [id number] Piperacillin/Tazo 4.5 gm In 0.9 200 / 300 100 / 300 % Sodium Chloride 100 ml @ 200 mls/hr IV Q6H [facility] Rx#:[id number] Output: Output, Urine Amount 2 / 2 Other: Number of Voids 0 3 Number of Unmeasured Voids 1 1 Weight 92.669 kg Patient Weight 12/20/23 23:59 Weight 92.669 kg Laboratory Results - last 24 hr 12/19/23 17:04: POC Glucose 346 H* 12/19/23 20:14: POC Glucose 454 H* 12/19/23 23:04: POC Glucose 311 H* 12/20/23 05:06: POC Glucose 277 H 12/20/23 05:45: WBC 8.6, RBC 4.16 L, Hgb 12.4 D, Hct 41.1, MCV 98.6, MCH 29.8, MCHC 30.2 L, RDW 14.2, Plt Count 461 H, MPV 8.8, Neut % (Auto) 67.3, Lymph % (Auto) 23.2, [place] % (Auto) 8.6, Eos % (Auto) 0.1, Baso % (Auto) 0.8, Neut # (Auto) 5.8, Lymph # (Auto) 2.0, [place] # (Auto) 0.7, Eos # (Auto) 0.0, Baso # (Auto) 0.1, Sodium 134 L, Potassium 4.6, Chloride 107, Carbon Dioxide 17 L, Anion Gap 14.6, BUN 14, Creatinine 0.50 L D, Estimated Creat Clear 210, Estimated GFR 134, Est GFR ( Amer) 162 D, Glucose 273 H D, Calcium 8.3 L, Magnesium 1.8 D, C-Reactive Protein 65.5 H 12/20/23 10:15: POC Glucose 276 H 12/20/23 10:25: Procalcitonin 0.284 I & O for Labs for Last 24 Hours: Intake & Output 12/17/23 12/18/23 12/19/23 12/20/23 23:59 23:59 23:59 23:59 Intake Total 660 / 1540 2600 / 2600 Output Total Balance 658 / 1538 2599 / 2599 Weight 90.265 kg 92.669 kg Microbiology Reports for the Last 24 Hours: Microbiology 12/19/23 06:05 Blood Blood Culture - Preliminary NO GROWTH AFTER 24 HOURS 12/19/23 06:05 Blood Blood Culture - Preliminary NO GROWTH AFTER 24 HOURS 12/19/23 15:26 Sputum - Expectorated Sputum Gram Stain - Final Radiology Reports for the Last 24 Hours: 12/19/2023 portable chest x-ray: IMPRESSION: Patchy right upper lobe and right basilar airspace disease consistent with pneumonia. Head: Present normocephalic ENT: Present normal exam and normal oropharynx Neck: Present normal inspection and full ROM Respiratory: Present prolonged expiratory phase and diminished air movement Cardiac: Present Reg Rate and Rhythm and Regular Rate GI: Present soft and normal bowel sounds Rectal (female): Present deferred (female): Present deferred Extremities: Present normal inspection Skin: Present intact and dry Assessment and Plan *Assessment and plan (1) Community acquired pneumonia: Status: Acute Category: Medical Code(s): J18.9 - Pneumonia, unspecified organism (2) Upper respiratory infection: Status: Acute Qualifiers: URI type: unspecified viral URI Qualified Code(s): J06.9 - Acute upper respiratory infection, unspecified Category: Medical Code(s): J06.9 - Acute upper respiratory infection, unspecified (3) History of splenectomy: Status: Acute Category: Surgical Code(s): Z90.81 - Acquired absence of spleen (4) Diabetes mellitus, type 2: Status: Acute Qualifiers: Diabetes mellitus [facility] insulin use: with [facility] use Diabetes mellitus complication status: with hypoglycemia Diabetes mellitus complication detail: without coma Qualified Code(s): E11.649 - Type 2 diabetes mellitus with hypoglycemia without coma; Z79.4 - halfway (current) use of insulin Category: Medical Code(s): E11.9 - Type 2 diabetes mellitus without complications (5) Hypertension: Status: Acute Qualifiers: Hypertension type: unspecified Qualified Code(s): I10 - Essential (primary) hypertension Category: Medical Code(s): I10 - Essential (primary) hypertension Plan 43-year-old female with past medical history of hypertension, diabetes, asplenia who presents with fevers, shortness of breath, malaise, new oxygen requirement. Patient seen PCP 12/15 and started on p.o. doxycycline and IM Rocephin. Patient presents with worsening symptoms since initiation of antibiotic therapy. Community-acquired pneumonia failed outpatient with history of splenectomy: ?12/19 downgrade IV Zyvox/Zosyn to IV azithromycin/Rocephin given patient's clinical improvement. Procalcitonin and CRP trending downward. Patient without leukocytosis or fever. Patient states respiratory status steadily improving. Order respiratory panel. Sputum culture no growth to date with negative sputum Gram stain. Blood cultures no growth to date. ? Start with broad-spectrum antibiotics and downgrade as appropriate. Sputum culture, blood cultures ordered. Empirically start IV Zyvox/Zosyn. Follow inflammatory markers including WBC, procalcitonin, CRP. Scheduled nebulization treatments and as needed. Sputum culture if possible. Diabetes: Sign scale insulin, ACHS Accu-Cheks, restart home diabetic medications. Hypertension: Continue home management and as needed IV hydralazine if needed. PPx: Lovenox subcutaneous CODE STATUS full FEN: Diabetic diet
[2023-12-20 12:48] LABS: Adenovirus,PCR Not Detected (NotDetected); Bordetella Pertussis Not Detected (NotDetected); Chlamydophila Pneumoniae, PCR Not Detected (NotDetected); Coronavirus 19, PCR Not Detected (NotDetected); Coronavirus 229E Not Detected (NotDetected); Coronavirus NL63 Not Detected (NotDetected); Coronavirus OC43 Not Detected (NotDetected); Coronovirus HKU1,PCR Not Detected (NotDetected); Human Metapneumovirus Not Detected (NotDetected); Influenza A, PCR Not Detected (NotDetected); Influenza AH1, 2009 Not Detected (NotDetected); Influenza AH1, PCR Not Detected (NotDetected); Influenza AH3,PCR Not Detected (NotDetected); Influenza B, PCR Not Detected (NotDetected); Mycoplasma Pneumoniae, PCR Not Detected (NotDetected); Parainfluenza 1, PCR Not Detected (NotDetected); Parainfluenza 2, PCR Not Detected (NotDetected); Parainfluenza 3, PCR Not Detected (NotDetected); Parainfluenza 4, PCR Not Detected (NotDetected); Respiratory Syncytial Virus Not Detected (NotDetected); Rhinovirus/Enterovirus Not Detected (NotDetected)
[2023-12-20] MEDS: CEFTRIAXONE SODIUM 1 GM in 0.9 % SODIUM CHLORIDE 50 ML IV (13:09)
[2023-12-20] MEDS: INSULIN GLARGINE 100 UNITS/ML 3ML FLEXPEN 10 UNIT SQ ×2 (13:12→22:20)
[2023-12-20] MEDS: AZITHROMYCIN 500 MG in 0.9 % SODIUM CHLORIDE 250 ML 250 MG IV (14:32)
--- NOTE | 2023-12-20 14:42 | PC.NURSE ---
Pt. is aox4, 22g L thumb NS @ 100 ML/HR, 90's on RA, tylenol given for headache, pt is up ad jaime to the restroom, on lovenox, fsbg this afternoon was 276, pt on multiple abx iv, will continue to monitor.
[2023-12-20 16:20] LABS: POC Glucose,Bedside 427 (70-110)
[2023-12-20 20:38] LABS: POC Glucose,Bedside 455 (70-110)
[2023-12-20] MEDS: ATORVASTATIN 40MG TABLET 40 MG PO (22:19)
[2023-12-20] MEDS: diazePAM 10MG TABLET 10 MG PO (22:20)
[2023-12-21] VITALS: BP 123/68; PULSE 68; RESP 16; TEMP 37.6; O2SAT 95
[2023-12-21] MEDS: BENZONATATE 100MG CAPSULE 100 MG PO ×2 (01:30→08:16)
[2023-12-21 04:00] VITALS: BP 125/78; PULSE 77; RESP 17; TEMP 36.4; O2SAT 98; BMI 32.8
[2023-12-21] MEDS: 0.9 % SODIUM CHLORIDE 1000ML 1,000 ML 100 ML IV (05:23)
[2023-12-21] MEDS: guaiFENesin 200MG/10ML SYRUP UDC 150 MG PO ×2 (05:24→10:05)
[2023-12-21] MEDS: METHYLPREDNISOLONE SOD SUCC 40MG VIAL 40 MG IV (05:24)
[2023-12-21 06:06] LABS: POC Glucose,Bedside 197 (70-110)
[2023-12-21] MEDS: IPRATROPIUM/ALBUTEROL 3 ML NEB IH ×2 (06:16→13:27)
[2023-12-21 06:42] LABS: Basophils # 0.1 K/mm3 (0-0.2); Basophils % 1.1 % (0.1-2.0); Eosinophils % 0.1 % (0.1-12.0); Hematocrit 39.6 % (37.0-47.0); Hemoglobin 12.7 g/dL (12.2-16.2); Lymphocytes # 2.6 K/mm3 (0.7-4.5); Lymphocytes % 21.6 % (10-50); Mean Corpuscular HGB Conc 32.2 g/dL (31.8-35.4); Mean Corpuscular Hemoglobin 30.6 pg (27.0-31.2); Mean Corpuscular Volume 95.1 fl (81-99); Mean Platelet Volume 8.9 fl (7.4-10.4); Monocytes # 1.5 K/mm3 (0.1-1.0); Monocytes % 12.1 % (1.7-9.3); Neutrophils # 7.8 K/mm3 (1.8-7.8); Neutrophils % 65.1 % (37.0-80.0); Platelet Count 530 K/mm3 (142-424); Red Blood Count 4.17 M/mm3 (4.20-5.40); Red Cell Distribution Width 14.6 % (11.5-17.5)
[2023-12-21 06:51] LABS: C-Reactive Protein 37.9 mg/L (0-4)
[2023-12-21] MEDS: humaLOG 100 UNITS/ML 10ML VIAL (SSI) SQ ×3 (07:00→14:37)
[2023-12-21 08:00] VITALS: BP 107/69; PULSE 104; RESP 16; TEMP 37.3; O2SAT 90
[2023-12-21] MEDS: INSULIN GLARGINE 100 UNITS/ML 3ML FLEXPEN 10 UNIT SQ (08:16)
[2023-12-21] MEDS: CHOLECALCIFEROL 1,000 UNITS (25MCG) TABLET 25 MCG PO (08:16)
[2023-12-21] MEDS: BISOPROLOL 5MG TABLET 10 MG PO (08:16)
[2023-12-21] MEDS: FENOFIBRATE 134MG CAPSULE 134 MG PO (08:16)
[2023-12-21] MEDS: ENOXAPARIN 40MG/0.4ML SYRINGE 40 MG SQ (08:18)
[2023-12-21 08:22] LABS: Chloride 111 mmol/L (98-107); Sodium 138 mmol/L (136-145)
[2023-12-21 08:25] LABS: Blood Urea Nitrogen 14 mg/dl (7-17); Creatinine Clearance Estimated 263 mL/min (50-200); Estimated Glomerular Filt Rate 173 ml/min (>60); GFR (African American) 210 ML/MIN (>60)
[2023-12-21 08:26] LABS: Calcium 8.3 mg/dl (8.4-10.2); Carbon Dioxide 21 mmol/L (22.0-30.0); Glucose 182 mg/dl (74-100)
[2023-12-21] MEDS: diazePAM 10MG TABLET 10 MG PO (08:57)
[2023-12-21] MEDS: ALBUTEROL 0.083% 2.5 MG/3 ML NEB IH (09:04)
[2023-12-21 10:19] LABS: POC Glucose,Bedside 335 (70-110)
[2023-12-21 11:55] LABS: Procalcitonin 0.204 ng/mL (0.0-2.0)
[2023-12-21 12:00] VITALS: BP 124/76; PULSE 92; RESP 18; TEMP 36.8; O2SAT 95
[2023-12-21] MEDS: CEFTRIAXONE SODIUM 1 GM in 0.9 % SODIUM CHLORIDE 50 ML IV (12:14)
[2023-12-21] MEDS: AZITHROMYCIN 500 MG in 0.9 % SODIUM CHLORIDE 250 ML 250 MG IV (13:05)
[2023-12-21 13:28] VITALS: PULSE 78; PULSE 80
--- NOTE | 2023-12-21 14:36 | EXP.DC.SUM ---
General Admission date:: 12/19/23 HPI HPI HPI: Really nice patient with past medical history of asplenia, diabetes, hypertension. Patient presents with shortness of breath, fevers, chills starting /Sunday. Patient states that symptoms started /Sunday with cough. Patient then noted sore throat/weakness/myalgias/arthralgias on Sunday. Patient visited urgent care with strep test reportedly negative. Patient then states on Sunday she was unable to eat or drink due to illness. Patient also complains of headache, myalgias, arthralgias, weakness all getting worse on Sunday. Patient then noticed febrile illnesses and visited her PCP on Sunday. States in PCP office temperature was 101.8 Fahrenheit. Patient started on doxycycline and given IM Rocephin at PCP. Patient then presented to emergency room [facility] 12/17 with worsening symptoms. Now complains of pleuritic chest discomfort. Denies diarrhea, constipation, abdominal pain. Chest x-ray in emergency room shows bilateral infiltrates. 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 Patient's present with patient in emergency room and collaborates the story. Hospital Course Hospital Course Hospital Course: Really nice patient with past medical history of diabetes, hypertension, asplenia presented with fevers, shortness of breath, sore throat. Patient diagnosed with commune acquired pneumonia, and strep pharyngitis during hospitalization. Patient maintained on broad-spectrum antibiotics (IV Zyvox/Zosyn), which were downgraded 12/20/2023 to IV azithromycin/Rocephin once patient improved clinically. Patient's inflammatory markers trended downward throughout hospitalization. Respiratory panel negative for infectious pathogens. Sputum culture grew out normal breann. Blood cultures no growth to date. Patient's breathing improved on IV antibiotics, nebulization treatments, and with glucocorticoids. Patient's blood sugars extremely high on IV glucocorticoids, but decreased when given high dose sliding scale insulin, and glargine 10 units subcu twice daily. Patient's breathing back to functional baseline by 12/21/2023, and patient discharged home with instructions to follow-up with primary care physician on outpatient basis. Patient also advised to follow-up with cleaner greaser CRUZ for diabetic management. Patient given 10-day total antibiotic cephalosporins/penicillin treatment course for full eradication of strep pharyngitis. Patient will also receive a total of 3 days azithromycin p.o./IV therapy. Exam Data for Last 24 hours Vital signs and Labs for Last 24 Hours: Temp Pulse Resp BP Pulse Ox O2 Del Method 98.2 F 78 18 124/76 95 Room Air 12/21/23 12:00 12/21/23 13:28 12/21/23 12:00 12/21/23 12:00 12/21/23 12:00 12/21/23 13:00 Laboratory Results - last 24 hr 12/20/23 12:45: Chlamy pneumoniae PCR Not detected, Adenovirus (PCR) Not detected, B. pertussis DNA (PCR) Not detected, Coronavirus OC43 (PCR) Not detected, Coronavirus HKU1 (PCR) Not detected, Coronavirus 229E (PCR) Not detected, SARS-CoV-2 (PCR) Not detected, Coronavirus NL63 (PCR) Not detected, Human Metapneumovir PCR Not detected, Influenza A (H1) PCR Not detected, Influ A (H1N1/09) PCR Not detected, Influenza A (H3) PCR Not detected, Influenza Type A (PCR) Not detected, Influenza Type B (PCR) Not detected, M. pneumoniae (PCR) Not detected, Parainfluenza 1 (PCR) Not detected, Parainfluenza 2 (PCR) Not detected, Parainfluenza 3 (PCR) Not detected, Parainfluenza 4 (PCR) Not detected, RSV (PCR) Not detected, Entero/Rhino (PCR) Not detected 12/20/23 16:14: POC Glucose 427 H* 12/20/23 20:30: POC Glucose 455 H* 12/21/23 05:58: POC Glucose 197 H 12/21/23 05:59: WBC 12.0 H D, RBC 4.17 L, Hgb 12.7, Hct 39.6, MCV 95.1, MCH 30.6, MCHC 32.2, RDW 14.6, Plt Count 530 H, MPV 8.9, Neut % (Auto) 65.1, Lymph % (Auto) 21.6, [place] % (Auto) 12.1 H, Eos % (Auto) 0.1, Baso % (Auto) 1.1, Neut # (Auto) 7.8, Lymph # (Auto) 2.6, [place] # (Auto) 1.5 H, Eos # (Auto) 0.0, Baso # (Auto) 0.1, Sodium 138, Potassium 4.0, Chloride 111 H, Carbon Dioxide 21 L, Anion Gap 10.0, BUN 14, Creatinine 0.40 L, Estimated Creat Clear 263, Estimated GFR 173, Est GFR ( Amer) 210 D, Glucose 182 H, Calcium 8.3 L, Magnesium 2.0 D, C-Reactive Protein 37.9 H D, Procalcitonin 0.204 12/21/23 10:12: POC Glucose 335 H* I & O for Last 24 hours: Intake & Output 12/18/23 12/19/23 12/20/23 12/21/23 23:59 23:59 23:59 23:59 Intake Total 660 / 1540 4525 / 4725 1810 / 1810 Output Total 2 / 2 0 / 0 Balance 658 / 1538 4524 / 4724 1810 / 1810 Weight 90.265 kg 92.669 kg 92.669 kg Microbiology Reports for the Last 24 Hours: Microbiology 12/19/23 06:05 Blood Blood Culture - Preliminary NO GROWTH AFTER 48 HOURS 12/19/23 06:05 Blood Blood Culture - Preliminary NO GROWTH AFTER 48 HOURS 12/19/23 15:26 Sputum - Expectorated Sputum Gram Stain - Final 12/19/23 15:26 Sputum - Expectorated Sputum Sputum Culture - Preliminary Results Data Completed and Pending Labs on day of discharge: Labs from last 24 hours 12/21/23 12/21/23 12/21/23 10:12 05:59 05:58 WBC 12.0 H D RBC 4.17 L Hgb 12.7 Hct 39.6 MCV 95.1 MCH 30.6 MCHC 32.2 RDW 14.6 Plt Count 530 H MPV 8.9 Neut % (Auto) 65.1 Lymph % (Auto) 21.6 [place] % (Auto) 12.1 H Eos % (Auto) 0.1 Baso % (Auto) 1.1 Neut # (Auto) 7.8 Lymph # (Auto) 2.6 [place] # (Auto) 1.5 H Eos # (Auto) 0.0 Baso # (Auto) 0.1 Sodium 138 Potassium 4.0 Chloride 111 H Carbon Dioxide 21 L Anion Gap 10.0 BUN 14 Creatinine 0.40 L Estimated Creat Clear 263 Estimated GFR 173 Est GFR ( Amer) 210 D Glucose 182 H POC Glucose 335 H* 197 H Calcium 8.3 L Magnesium 2.0 D C-Reactive Protein 37.9 H D Procalcitonin 0.204 Chlamy pneumoniae PCR Adenovirus (PCR) B. pertussis DNA (PCR) Coronavirus OC43 (PCR) Coronavirus HKU1 (PCR) Coronavirus 229E (PCR) SARS-CoV-2 (PCR) Coronavirus NL63 (PCR) Human Metapneumovir PCR Influenza A (H1) PCR Influ A (H1N1/09) PCR Influenza A (H3) PCR Influenza Type A (PCR) Influenza Type B (PCR) M. pneumoniae (PCR) Parainfluenza 1 (PCR) Parainfluenza 2 (PCR) Parainfluenza 3 (PCR) Parainfluenza 4 (PCR) RSV (PCR) Entero/Rhino (PCR) 12/20/23 12/20/23 12/20/23 20:30 16:14 12:45 WBC RBC Hgb Hct MCV MCH MCHC RDW Plt Count MPV Neut % (Auto) Lymph % (Auto) [place] % (Auto) Eos % (Auto) Baso % (Auto) Neut # (Auto) Lymph # (Auto) [place] # (Auto) Eos # (Auto) Baso # (Auto) Sodium Potassium Chloride Carbon Dioxide Anion Gap BUN Creatinine Estimated Creat Clear Estimated GFR Est GFR ( Amer) Glucose POC Glucose 455 H* 427 H* Calcium Magnesium C-Reactive Protein Procalcitonin Chlamy pneumoniae PCR Not detected Adenovirus (PCR) Not detected B. pertussis DNA (PCR) Not detected Coronavirus OC43 (PCR) Not detected Coronavirus HKU1 (PCR) Not detected Coronavirus 229E (PCR) Not detected SARS-CoV-2 (PCR) Not detected Coronavirus NL63 (PCR) Not detected Human Metapneumovir PCR Not detected Influenza A (H1) PCR Not detected Influ A (H1N1/09) PCR Not detected Influenza A (H3) PCR Not detected Influenza Type A (PCR) Not detected Influenza Type B (PCR) Not detected M. pneumoniae (PCR) Not detected Parainfluenza 1 (PCR) Not detected Parainfluenza 2 (PCR) Not detected Parainfluenza 3 (PCR) Not detected Parainfluenza 4 (PCR) Not detected RSV (PCR) Not detected Entero/Rhino (PCR) Not detected Preliminary micro results at discharge 12/19/23 06:05 Blood Culture - Preliminary Blood NO GROWTH AFTER 48 HOURS 12/19/23 06:05 Blood Culture - Preliminary Blood NO GROWTH AFTER 48 HOURS 12/19/23 15:26 Sputum Culture - Preliminary Sputum - Expectorated Sputum Impressions Impressions: Ordering Physician: Wayne Flower MD Date of Service: 12/19/23 Procedure(s): XR chest portable Accession Number(s): [id number] cc: Diamond Kramer APRN; Shawn Montes MD~ PROCEDURE INFORMATION: Exam: XR Chest Exam date and time: 12/19/2023 6:56 AM Age: 43 years old Clinical indication: Cough and fever; Patient HX: Fever, cough TECHNIQUE: Imaging protocol: Radiologic exam of the chest. Views: 1 view. COMPARISON: CR XR CHEST PORTABLE 03/13/2023 6:21 PM FINDINGS: Tubes, catheters and devices: Monitor leads project over the chest. Lungs: Patchy right upper lobe and right basilar airspace disease consistent with pneumonia. Pleural spaces: No significant costophrenic angle blunting. No pneumothorax. Heart/Mediastinum: Heart size is normal. Bones/joints: No acute osseous abnormality. IMPRESSION: Patchy right upper lobe and right basilar airspace disease consistent with pneumonia. DS: Diagnosis Discharge Diagnosis (1) Community acquired pneumonia: Status: Acute Code(s): J18.9 - Pneumonia, unspecified organism (2) Upper respiratory infection: Status: Acute Code(s): J06.9 - Acute upper respiratory infection, unspecified Qualifiers: URI type: unspecified viral URI Qualified Code(s): J06.9 - Acute upper respiratory infection, unspecified (3) History of splenectomy: Status: Acute Code(s): Z90.81 - Acquired absence of spleen (4) Diabetes mellitus, type 2: Status: Acute Code(s): E11.9 - Type 2 diabetes mellitus without complications Qualifiers: Diabetes mellitus complication detail: without coma Diabetes mellitus complication status: with hypoglycemia Diabetes mellitus [employer] insulin use: with snf use Qualified Code(s): E11.649 - Type 2 diabetes mellitus with hypoglycemia without coma; Z79.4 - correction (current) use of insulin (5) Hypertension: Status: Acute Code(s): I10 - Essential (primary) hypertension Qualifiers: Hypertension type: unspecified Qualified Code(s): I10 - Essential (primary) hypertension (6) Strep throat: Status: Acute Code(s): J02.0 - Streptococcal pharyngitis Meds Home Medications and Allergies Home Medications ?Medication ?Instructions ?Recorded ?Confirmed ?Type bisoprolol fumarate 10 mg tablet 10 mg PO DAILY 10/02/20 12/19/23 History fenofibrate 160 mg tablet 160 mg PO DAILY 01/16/22 12/19/23 History cholecalciferol (vitamin D3) 125 125 mcg PO DAILY 02/08/23 12/19/23 History mcg (5,000 unit) tablet (Vitamin D3) ferrous sulfate 325 mg (65 mg 325 mg PO Q48H 02/08/23 12/19/23 History iron) tablet (FeroSul) gabapentin 300 mg capsule 300 mg PO BIDP PRN Neuropathic Pain 03/05/23 12/19/23 History rosuvastatin 20 mg tablet 20 mg PO DAILY 06/06/23 12/19/23 History albuterol sulfate 90 mcg/actuation 2 puff inhalation Q4HP PRN 12/19/23 12/19/23 History aerosol inhaler Shortness Of Breath desvenlafaxine succinate 100 mg 100 mg PO DAILY 12/19/23 12/19/23 History tablet,extended release 24 hr (Pristiq) dextromethorphan IR 45 1 tab PO BID 12/19/23 12/19/23 History mg-bupropion ER 105 mg biphasic tablet (Auvelity) diazepam 10 mg tablet (Valium) 10 mg PO BIDP PRN anxiety 12/19/23 12/19/23 History insulin glargine U-300 conc 300 10 unit SQ HS 12/19/23 12/19/23 History unit/mL (3 mL) subcutaneous pen (Toujeo Max U-300 SoloStar) insulin lispro 100 unit/mL 10 unit SQ TID 12/19/23 12/19/23 History subcutaneous pen (Humalog KwikPen (U-100) Insulin) tirzepatide 10 mg/0.5 mL 10 mg SQ WEEKLY 12/19/23 12/19/23 History subcutaneous pen injector (Ashley) triamterene 37.5 1 tab PO DAILYP PRN Edema 12/19/23 12/19/23 History mg-hydrochlorothiazide 25 mg tablet azithromycin 500 mg tablet 500 mg PO DAILY 2 days #2 tabs 12/21/23 Rx cefdinir 300 mg capsule 300 mg PO BID #15 caps 12/21/23 Rx New Prescriptions to Start Prescriptions: azithromycin Harris,[place] cefdinir Harris,[place] Allergies Allergy/AdvReac Type Severity Reaction Status Date / Time No Known Allergies Allergy Verified 11/05/23 16:07 Discharge Plan Disposition Patient Disposition: Home, Self-Care Condition: Fair Follow up Plan Follow up with: Diamond Kramer APRN [Primary Care Provider] - 01/01/24 10:00 am Prescriptions/Medication Reconciliation: New azithromycin 500 mg tablet 500 mg PO DAILY 2 Days Qty: 2 0RF Rx Instructions: start on day 2 of therapy cefdinir 300 mg capsule 300 mg PO BID Qty: 15 0RF Continued gabapentin 300 mg capsule 300 mg PO BIDP PRN (Reason: Neuropathic Pain) bisoprolol fumarate 10 MG tablet 10 mg PO DAILY ferrous sulfate [FeroSul] 325 mg (65 mg iron) tablet 325 mg PO Q48H Patient Comments: TAKE 1 TABLET BY MOUTH EVERY OTHER DAY cholecalciferol (vitamin D3) [Vitamin D3] 125 mcg (5,000 unit) Tablet 125 mcg PO DAILY triamterene-hydrochlorothiazid 37.5-25 mg tablet 1 tab PO DAILYP PRN (Reason: Edema) Patient Comments: TAKE 1 TABLET BY MOUTH ONCE DAILY NEEDED FOR EDEMA albuterol sulfate 90 mcg/actuation HFA aerosol inhaler 2 puff INHALATION Q4HP PRN (Reason: Shortness Of Breath) Patient Comments: INHALE 2 PUFFS BY MOUTH EVERY 4 TO 6 HOURS NEEDED Mounjaro 10 mg/0.5 mL pen injector 10 mg SQ WEEKLY Patient Comments: INJECT 1 SYRINGE SUBCUTANEOUSLY ONCE A WEEK diazepam [Valium] 10 mg tablet 10 mg PO BIDP PRN (Reason: anxiety) insulin lispro [Humalog KwikPen Insulin] 100 unit/mL insulin pen 10 unit SQ TID Patient Comments: Per patient, only takes 20 unit dose with meals - skips if skipped meal desvenlafaxine succinate [Pristiq] 100 mg tablet extended release 24 hr 100 mg PO DAILY Auvelity 45-105 mg tablet, IR and ER, biphasic 1 tab PO BID insulin glargine U-300 conc [Toujeo Max U-300 SoloStar] 300 unit/mL (3 mL) insulin pen 10 unit SQ HS Patient Comments: INJECT 62 UNITS SUBCUTANEOUSLY ONCE DAILY DIRECTED fenofibrate 160 mg tablet 160 mg PO DAILY Patient Comments: TAKE 1 TABLET BY MOUTH ONCE DAILY rosuvastatin 20 mg Tablet 20 mg PO DAILY Problem Reconciliation Problems Reviewed?: Yes Patient Discharge Instructions ACTIVITY: Continue current activity DIET: continue same diet Stand Alone Forms: [facility] Work Release Patient Instructions: DI for Pneumonia -- Adult, DI for Sepsis -- Adult Print Language: [place] Providers Primary Care Provider: Diamond Kramer Admit Provider: Art Harris Attending Provider: Art Harris
[2023-12-21 14:54] LABS: POC Glucose,Bedside 323 (70-110)
== END 2023-12-21 15:15 | disposition home or self-care (01) ==
LOC: ER 08:25 → 2ND 09:11
PROVIDERS: Emergency Medicine; Admitting Provider Internal Medicine; Emergency Provider Emergency Medicine; PCP Nurse Practitioner Family; Visit Provider Internal Medicine
DX: J18.9 Pneumonia, unspecified organism (principal); J06.9 Acute upper respiratory infection, unspecified; Z90.81 Acquired absence of spleen; E11.649 Type 2 diabetes mellitus with hypoglycemia without coma; R51.9 Headache, unspecified; E78.5 Hyperlipidemia, unspecified; I10 Essential (primary) hypertension; Z79.4 Long term (current) use of insulin; Z79.899 Other long term (current) drug therapy
CPT/HCPCS: 36415; 71045; 80048; 80053; 81001; 82962; 83605; 83735; 84145; 85025; 86140; 87040; 87070; 87205; 87581; 87632; 87635; 87636; 87798; 94640; 99285; G0378; J0456; J0696; J1650; J2020; J2405; J2543; J2919; J7030; J7050; J7613; J7620

== ENCOUNTER 2023-12-23 10:44 | Inpatient (IN) | payer BC, SELFPAY ==
[2023-12-23] VITALS (9 sets, daily range): BP systolic 98–159; BP diastolic 65–88; PULSE 79–112; RESP 16–20; TEMP 36.6–39.2; O2SAT 92–97; BMI 31.8
--- NOTE | 2023-12-23 10:54 | ECG_ITS ---
APPROVED REPORT Exam: Resting ECG HR:86 bpm ECG Measurements Heart Rate 86 AXES [place] 125 P 40 QRSd 90 QRS 65 QT 336 T 51 QTc 379 Conclusion SINUS RHYTHM MODERATE ST DEPRESSION [0.05+ mV ST DEPRESSION] ABNORMAL ECG UNCONFIRMED REPORT Electronically signed by : Riky Mistry, 12/23/2023 14:52:06
[2023-12-23] MEDS: CEFTRIAXONE SODIUM 2 GM in 0.9 % SODIUM CHLORIDE 50 ML IV (11:53)
--- NOTE | 2023-12-23 11:53 | CT_ITS ---
PROCEDURE INFORMATION: Exam: CT Chest Without Contrast; Diagnostic Exam date and time: 12/23/2023 12:12 PM Age: 43 years old Clinical indication: Dyspnea; Additional info: Dyspnea, hypoxia TECHNIQUE: Imaging protocol: Diagnostic computed tomography of the chest without contrast. Radiation optimization: All CT scans at this facility use at least one of these dose optimization techniques: automated exposure control; mA and/or kV adjustment per patient size (includes targeted exams where dose is matched to clinical indication); or iterative reconstruction. COMPARISON: CR XR CHEST PORTABLE 12/19/2023 6:56 AM FINDINGS: Lungs: Partially calcified nodule anteriorly left upper lobe. Probable hamartoma. Patchy somewhat nodular airspace opacities right upper lobe. Findings most compatible with a developing pneumonia. Pleural spaces: Trace bilateral pleural effusions. Heart: Unremarkable. No cardiomegaly. No pericardial effusion. Coronary arteries: no evidence of coronary artery calcification Lymph nodes: Unremarkable. No enlarged lymph nodes. Vasculature: Unremarkable. No aortic aneurysm. Diaphragm: Small hiatal hernia Bones/joints: Unremarkable. No acute fracture. Soft tissues: Unremarkable. Other findings: Evidence of prior granulomatous disease. IMPRESSION: Patchy somewhat nodular airspace opacities right upper lobe. Findings most compatible with a developing pneumonia.
[2023-12-23] MEDS: LACTATED RINGERS 1000ML 1,780 ML 890 ML IV (12:00)
[2023-12-23] MEDS: ACETAMINOPHEN 1,000MG/100ML VIAL 1000 MG IV (12:00)
--- NOTE | 2023-12-23 12:00 | ED_ITS ---
Discharge Plan Disposition Patient Disposition: Admitted Chief Complaint: Upper Respiratory Infection Prescriptions Prescriptions: No Action gabapentin 300 mg capsule 300 mg PO BIDP PRN (Reason: Neuropathic Pain) bisoprolol fumarate 10 MG tablet 10 mg PO DAILY ferrous sulfate [FeroSul] 325 mg (65 mg iron) tablet 325 mg PO Q48H Patient Comments: TAKE 1 TABLET BY MOUTH EVERY OTHER DAY cholecalciferol (vitamin D3) [Vitamin D3] 125 mcg (5,000 unit) Tablet 125 mcg PO DAILY triamterene-hydrochlorothiazid 37.5-25 mg tablet 1 tab PO DAILYP PRN (Reason: Edema) Patient Comments: TAKE 1 TABLET BY MOUTH ONCE DAILY NEEDED FOR EDEMA albuterol sulfate 90 mcg/actuation HFA aerosol inhaler 2 puff INHALATION Q4HP PRN (Reason: Shortness Of Breath) Patient Comments: INHALE 2 PUFFS BY MOUTH EVERY 4 TO 6 HOURS NEEDED Mounjaro 10 mg/0.5 mL pen injector 10 mg SQ WEEKLY Patient Comments: INJECT 1 SYRINGE SUBCUTANEOUSLY ONCE A WEEK diazepam [Valium] 10 mg tablet 10 mg PO BIDP PRN (Reason: anxiety) insulin lispro [Humalog KwikPen Insulin] 100 unit/mL insulin pen 10 unit SQ TID Patient Comments: Per patient, only takes 20 unit dose with meals - skips if skipped meal desvenlafaxine succinate [Pristiq] 100 mg tablet extended release 24 hr 100 mg PO DAILY Auvelity 45-105 mg tablet, IR and ER, biphasic 1 tab PO BID insulin glargine U-300 conc [Toujeo Max U-300 SoloStar] 300 unit/mL (3 mL) insulin pen 10 unit SQ HS Patient Comments: INJECT 62 UNITS SUBCUTANEOUSLY ONCE DAILY DIRECTED azithromycin 500 mg tablet 500 mg PO DAILY 2 Days Qty: 2 0RF Rx Instructions: start on day 2 of therapy cefdinir 300 mg capsule 300 mg PO BID Qty: 15 0RF fenofibrate 160 mg tablet 160 mg PO DAILY Patient Comments: TAKE 1 TABLET BY MOUTH ONCE DAILY rosuvastatin 20 mg Tablet 20 mg PO DAILY Referrals Follow up/Referrals: Diamond Kramer APRN [Primary Care Provider] - See instructions Clinical Impressions Clinical Impression: Severe sepsis, Asplenia, Multifocal pneumonia, Hypoxic respiratory failure Print Language Print Language: Iraqi Discharge ED Provider: Catrachita Mistry General Adult HPI General Chief complaint: Upper Respiratory Infection Stated complaint: sore throat, cough, soa Time Seen by Provider: 12/23/23 11:37 Mode of Arrival: Ambulatory Source of Information: Patient Limitations: No Limitations Description of Symptoms (Recalled from ER Triage Doc. by RN): Patient reports sore throat and pneumonia. States she was discharged from the hospital on Sunday and has just continued to get worse. Reports not eating or drinking since Sunday and being unable to talk. 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 is at the bedside states she was admitted on Sunday was discharged on Sunday but since that time has had progressive worsening in her symptoms she has not gotten out of bed has had increasing lethargy and increasing shortness of breath which is what brought her to the emergency department today. Related Data Home Medications ?Medication ?Instructions ?Recorded ?Confirmed bisoprolol fumarate 10 mg tablet 10 mg PO DAILY 10/02/20 12/19/23 fenofibrate 160 mg tablet 160 mg PO DAILY 01/16/22 12/19/23 cholecalciferol (vitamin D3) 125 125 mcg PO DAILY 02/08/23 12/19/23 mcg (5,000 unit) tablet (Vitamin D3) ferrous sulfate 325 mg (65 mg 325 mg PO Q48H 02/08/23 12/19/23 iron) tablet (FeroSul) gabapentin 300 mg capsule 300 mg PO BIDP PRN Neuropathic Pain 03/05/23 12/19/23 rosuvastatin 20 mg tablet 20 mg PO DAILY 06/06/23 12/19/23 albuterol sulfate 90 mcg/actuation 2 puff inhalation Q4HP PRN 12/19/23 12/19/23 aerosol inhaler Shortness Of Breath desvenlafaxine succinate 100 mg 100 mg PO DAILY 12/19/23 12/19/23 tablet,extended release 24 hr (Pristiq) dextromethorphan IR 45 1 tab PO BID 12/19/23 12/19/23 mg-bupropion ER 105 mg biphasic tablet (Auvelity) diazepam 10 mg tablet (Valium) 10 mg PO BIDP PRN anxiety 12/19/23 12/19/23 insulin glargine U-300 conc 300 10 unit SQ HS 12/19/23 12/19/23 unit/mL (3 mL) subcutaneous pen (Toujeo Max U-300 SoloStar) insulin lispro 100 unit/mL 10 unit SQ TID 12/19/23 12/19/23 subcutaneous pen (Humalog KwikPen (U-100) Insulin) tirzepatide 10 mg/0.5 mL 10 mg SQ WEEKLY 12/19/23 12/19/23 subcutaneous pen injector (Ashley) triamterene 37.5 1 tab PO DAILYP PRN Edema 12/19/23 12/19/23 mg-hydrochlorothiazide 25 mg tablet Previous Rx's ?Medication ?Instructions ?Recorded azithromycin 500 mg tablet 500 mg PO DAILY 2 days #2 tabs 12/21/23 cefdinir 300 mg capsule 300 mg PO BID #15 caps 12/21/23 Allergies Allergy/AdvReac Type Severity Reaction Status Date / Time No Known Allergies Allergy Verified 11/05/23 16:07 [facility] Disclaimer: The information contained in this section may have been updated after the patient was seen, as this information can be updated by other users. 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 , [employer]) History of splenectomy History of cholecystectomy History of appendectomy Family History , [employer]) Diabetes Father Grandfather FHx: mental illness Mother Cancer Grandmother Social History Smoking Status: Unknown if ever smoked second hand exposure: No alcohol intake: never substance use type: denies use current occupational status: employed and other details: she is in the process of getting a job; she is interviewing Travel in the last 8 weeks: None adopted: No caregiver/support person: Yes (she takes care of her grand-daughter) foster care: No household members: spouse housing: house marital status: number of children: 1 number of grandchildren: 1 education level: high school service: No retirement: No 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 current occupational exposures/hazards: No Hx Recent Travel: No sexually active: Yes caffeine: Yes physical activity: none working smoke detector in home: Yes fire extinguisher in home: Yes carbon monox detector in home: No firearms in home: Yes firearms unloaded and locked: Yes do you feel safe at home: Yes victim of physical abuse: No victim of emotional abuse: No victim of sexual abuse: No ROS Obtained: Yes All systems reviewed & no additional complaints except as documented Physical Exam General General appearance: lethargic and other (Ill-appearing ox saturations in the 80s on room air placed on 3 L nasal cannula correcting to mid 90s) Respiratory Respiratory exam: Present other (Patient's mildly tachypneic lungs are coarse throughout ) Cardiovascular Cardiovascular exam: Present regular rate and normal rhythm Neurological Exam Neurological exam: Present alert and oriented X3 Medical Decision Making Solo Inquiry Pt receiving controlled substance: No Vital Signs: 12/23/23 10:46 12/23/23 11:00 12/23/23 11:30 Temperature 98.9 F Temperature Source Oral Pulse Rate 112 H 101 H Pulse Rate [Radial] 106 H Respiratory Rate 20 17 Blood Pressure 159/84 H 138/88 Blood Pressure [Right Arm] 142/76 H Blood Pressure Mean [Right Arm] 98 Blood Pressure Source [Right Arm] Automatic Cuff Blood Pressure Position [Right Arm] Sitting 02 Sat by Pulse Oximetry 93 L 92 L 97 Oxygen Delivery Method Room Air 12/23/23 11:53 Temperature 102.6 F H Temperature Source Axillary Pulse Rate Pulse Rate [Radial] Respiratory Rate Blood Pressure Blood Pressure [Right Arm] Blood Pressure Mean [Right Arm] Blood Pressure Source [Right Arm] Blood Pressure Position [Right Arm] 02 Sat by Pulse Oximetry Oxygen Delivery Method Lab Data Lab results reviewed: Yes I reviewed the patient's lab results. Lab Results 12/23/23 11:55: WBC 19.3 H D, RBC 4.74, Hgb 14.6, Hct 45.3, MCV 95.4, MCH 30.8, MCHC 32.3, RDW 14.6, Plt Count 483 H, MPV 8.8, Neut % (Auto) 72.1, Lymph % (Auto) 17.0, [place] % (Auto) 9.0, Eos % (Auto) 0.4, Baso % (Auto) 1.6, Neut # (Auto) 13.9 H, Lymph # (Auto) 3.3, [place] # (Auto) 1.7 H, Eos # (Auto) 0.1, Baso # (Auto) 0.3 H, VBG pH 7.34, VBG pCO2 34.5 L, VBG pO2 41.2 H, VBG HCO3 18.1 L, VBG Total CO2 19.2 L, VBG O2 Saturation 78.4 H, VBG Base Excess -7.7 L, VBG Lactic Acid 1.5, Sodium 135 L, Potassium 3.4 L, Chloride 100, Carbon Dioxide 19 L, A nion Gap 19.4 H, BUN 6 L D, Creatinine 0.60 D, Estimated Creat Clear 169, Estimated GFR 109, Est GFR ( Amer) 131 D, Glucose 224 H, Calcium 8.5, Total Bilirubin 0.6, AST 33, ALT 23, Alkaline Phosphatase 105, Total Protein 7.2, Albumin 3.9, Globulin 3.3 H, Albumin/Globulin Ratio 1.2 12/23/23 11:55 12/23/23 11:55 Orders (Tests/Meds): ED MEDICATIONS Generic Name Dose Route Start Last Admin Trade Name Tooq PRN Reason Stop Dose Admin Acetaminophen 1,000 mg 12/23/23 12:18 12/23/23 12:00 Acetaminophen 1,000mg/100ml Vial IV 12/23/23 12:19 1,000 mg ONCE ONE Administration Lactated Ringer's 1,780 mls @ 890 mls/hr 12/23/23 11:53 12/23/23 12:00 Lactated Ringer's 1000 Ml Bag 30 ml/kg infuse over 2 hr (1780 ml) 12/23/23 13:52 890 mls/hr IV Administration .Q2H ONE Ceftriaxone Sodium 2 gm/ 50 mls @ 100 mls/hr 12/23/23 11:53 12/23/23 11:53 Sodium Chloride IV 12/23/23 12:22 100 mls/hr ONCE ONE Administration Vancomycin/PEG/NADA/Lysine/Water 1.75 gm in 350 mls @ 175 mls/hr 12/23/23 12:15 Vancomycin 1.75gm/350ml (Peg) Premix IV 12/23/23 14:14 ONCE ONE Discontinued Medications Generic Name Dose Route Start Last Admin Trade Name Chris PRN Reason Stop Dose Admin Azithromycin 500 mg/ Sodium 250 mls @ 250 mls/hr 12/23/23 11:56 Chloride IV 12/23/23 11:57 ONCE ONE Miscellaneous 1 each 12/23/23 12:00 Vancomycin Consult Request NOTAPPLIC 01/22/24 11:59 CONSULT PHARMACY AURELIA ORDERS Category Date Time Status CT chest wo con Stat Cat Scan 12/23/23 11:53 Taken Basic Metabolic Panel AMLAB Lab 12/24/23 06:00 Ordered Basic Metabolic Panel AMLAB Lab 12/25/23 06:00 Ordered Basic Metabolic Panel AMLAB Lab 12/26/23 06:00 Ordered CBC w/Auto Diff [Complete Blood Count Auto Diff] Stat Lab 12/23/23 11:55 Results CMP [Comprehensive Metabolic Panel] Stat Lab 12/23/23 11:55 Results Complete Blood Count Auto Diff AMLAB Lab 12/24/23 06:00 Ordered Complete Blood Count Auto Diff AMLAB Lab 12/25/23 06:00 Ordered Complete Blood Count Auto Diff AMLAB Lab 12/26/23 06:00 Ordered Lactate Venous Stat Lab 12/23/23 11:53 Ordered PT/PTT Stat Lab 12/23/23 11:55 Received Rapid PCR Covid and Flu A/B Stat Lab 12/23/23 12:06 Received Streptococcus pneumoniae Ag Stat Lab 12/23/23 11:53 Ordered Trop I [Troponin I] Stat Lab 12/23/23 11:55 Results Troponin I Q3H Lab 12/23/23 15:00 Ordered Troponin I Q3H Lab 12/23/23 18:00 Ordered Blood Culture Stat Micro 12/23/23 11:55 Ordered Venous Blood Gas Stat RT 12/23/23 11:55 Completed Medical Decision Narrative: 43-year-old with above history and physical presenting today with hypoxemia lethargy tachypnea fever recent admission for pneumonia. She has a splenic highly susceptible to encapsulated organisms will get 2 g of Rocephin on board as quickly as possible. Also vancomycin as well as azithromycin have been administered. 30 cc/kg bolus of been ordered she is currently stable hemodynamically will reassess shortly but anticipate admission. Reassessment 12:21 PM patient remained stable hemodynamically is still mildly tachycardic however blood pressure stable lactic acid not significantly elevated. She does have a worsening leukocytosis and is stated above she was tachycardic tachypneic febrile her mental status and her oxygen suggest endorgan damage in the setting of sepsis thus severe sepsis. Fluid still ongoing antibiotics are being administered. Chest CT I personally interpreted which shows several areas of groundglass opacities but no dense consolidations but this is consistent with multifocal airspace disease/pneumonia. It is possible she is bacteremic recent cultures were negative on discharge she was discharged on Omnicef and azithromycin. I spoke with Dr. Gonsalez who agreed to accept and to treat the patient for further evaluation and management. Critical Care Critical Care Time Critical Care Time: Yes Attestation: On 12/23/23, the high probability of a clinically significant, sudden or life threatening deterioration of the following system(s) required my full and direct attention, intervention and personal management. The time I documented below is in addition to time spent performing reported procedures but includes the following listed in this critical care notation. Total Time Total Critical Care Time: 35
[2023-12-23 12:01] LABS: Lactate Venous 1.5 mmol/L (0.4-2.0); VBG Base Excess -7.7 mmol/L (-2.4-2.3); VBG HCO3 18.1 mmol/L (23-30); VBG Oxygen Saturation 78.4 % (50-70); VBG PCO2 34.5 mmol/L (35-51); VBG PH 7.34 mmol/L (7.31-7.41); VBG PO2 41.2 mmol/L (28-40); VBG Total CO2 19.2 mmol/L (23-27)
[2023-12-23 12:05] LABS: Basophils # 0.3 K/mm3 (0-0.2); Basophils % 1.6 % (0.1-2.0); Eosinophils # 0.1 K/mm3 (0.0-0.4); Eosinophils % 0.4 % (0.1-12.0); Hematocrit 45.3 % (37.0-47.0); Hemoglobin 14.6 g/dL (12.2-16.2); Lymphocytes # 3.3 K/mm3 (0.7-4.5); Mean Corpuscular HGB Conc 32.3 g/dL (31.8-35.4); Mean Corpuscular Hemoglobin 30.8 pg (27.0-31.2); Mean Corpuscular Volume 95.4 fl (81-99); Mean Platelet Volume 8.8 fl (7.4-10.4); Monocytes # 1.7 K/mm3 (0.1-1.0); Neutrophils # 13.9 K/mm3 (1.8-7.8); Neutrophils % 72.1 % (37.0-80.0); Platelet Count 483 K/mm3 (142-424); Red Blood Count 4.74 M/mm3 (4.20-5.40); Red Cell Distribution Width 14.6 % (11.5-17.5); White Blood Count 19.3 K/mm3 (4.8-10.8)
[2023-12-23 12:07] LABS: MANUAL DIFFERENTIAL MANUAL DIFFERENTIAL (MANUAL DIFF)
[2023-12-23 12:09] LABS: Albumin Level 3.9 g/dl (3.5-5.0); Chloride 100 mmol/L (98-107); Potassium 3.4 mmoL/L (3.5-5.1); Sodium 135 mmol/L (136-145)
[2023-12-23 12:12] LABS: Alanine Aminotransferase 23 U/L (12-78); Albumin/Globulin Ratio 1.2 (1.1-1.8); Alkaline Phosphatase 105 U/L (38-126); Anion Gap 19.4 mEq/L (5-15); Aspartate Amino Transferase 33 U/L (14-36); Bilirubin,Total 0.6 mg/dl (0.2-1.3); Blood Urea Nitrogen 6 mg/dl (7-17); Calcium 8.5 mg/dl (8.4-10.2); Carbon Dioxide 19 mmol/L (22.0-30.0); Creatinine Clearance Estimated 169 mL/min (50-200); Estimated Glomerular Filt Rate 109 ml/min (>60); GFR (African American) 131 ML/MIN (>60); Globulin 3.3 g/dL (1.3-3.2); Glucose 224 mg/dl (74-100); Total Protein,Serum 7.2 g/dl (6.3-8.2)
--- NOTE | 2023-12-23 12:12 | PC.NURSE ---
pt TO CT
[2023-12-23 12:15] LABS: Coronavirus 19, PCR Not Detected (NotDetected); Influenza A, PCR Not Detected (NotDetected); Influenza B, PCR Not Detected (NotDetected)
--- NOTE | 2023-12-23 12:18 | PC.NURSE ---
pt BACK FROM CT
--- NOTE | 2023-12-23 12:19 | PC.NURSE ---
Dr. Mistry s/w Dr. Gonsalez for admission. He agrees, cold rolling supervisor notified.
[2023-12-23 12:28] LABS: Activated Partial Thrombo Time 32.4 seconds (22.8-30.6); INR 0.94 (0.9-1.1); Prothrombin Time 10.6 seconds (10.1-12.5); Troponin I < 0.01 ng/ml (0.00-0.034)
[2023-12-23] MEDS: AZITHROMYCIN 500 MG in 0.9 % SODIUM CHLORIDE 250 ML 250 MG IV (12:31)
--- NOTE | 2023-12-23 12:35 | PC.NURSE ---
Updated pt's spouse and mother on admission and POC
--- NOTE | 2023-12-23 12:36 | PC.NURSE ---
Report called to KARINA Joseph on Med Surg.
[2023-12-23 12:58] LABS: Eosinophils % 1 % (0-3); Lymphocytes % 20 % (10-50); Monocytes % 1 % (2-9); Neutrophils % 78 % (42-76); Nucleated Red Blood Cells 2; Total Cells Counted 100
[2023-12-23 12:59] LABS: Platelet Estimate Slight Increase; RBC Morphology Normal
--- NOTE | 2023-12-23 13:27 | HMH.PHAINT1 ---
Pharmacy Intervention Comments: HOME MEDICATION LIST VERIFIED USING DISCHARGE LIST FROM LAST VISIT 12/21/23
[2023-12-23] MEDS: VANCOMYCIN/WATER FOR INJ (PEG) 1.75 GM/350 ML PIGGYBACK IV ×2 (13:46→20:13)
[2023-12-23] MEDS: HEPARIN SODIUM 5,000 UNIT/ML VIAL 5000 UNIT SQ ×2 (13:46→20:13)
--- NOTE | 2023-12-23 14:27 | P.CONPHA_ITS ---
Pharmacy Consult Date: 12/23/23 Time: 14:27 Referring provider: MARILYNN Reason for Consult:: PHARMACY CONSULTED TO DO AND MANAGE VANCOMYCIN IN PT FAILED OUTPATIENT PNEUMONIA TREATMENT. Allergies Allergy/AdvReac Type Severity Reaction Status Date / Time No Known Allergies Allergy Verified 11/05/23 16:07 Home Medications ?Medication ?Instructions ?Recorded ?Confirmed ?Type bisoprolol fumarate 10 mg tablet 10 mg PO DAILY 10/02/20 12/23/23 History fenofibrate 160 mg tablet 160 mg PO DAILY 01/16/22 12/23/23 History cholecalciferol (vitamin D3) 125 125 mcg PO DAILY 02/08/23 12/23/23 History mcg (5,000 unit) tablet (Vitamin D3) ferrous sulfate 325 mg (65 mg 325 mg PO Q48H 02/08/23 12/23/23 History iron) tablet (FeroSul) gabapentin 300 mg capsule 300 mg PO BIDP PRN Neuropathic Pain 03/05/23 12/23/23 History rosuvastatin 20 mg tablet 20 mg PO DAILY 06/06/23 12/23/23 History albuterol sulfate 90 mcg/actuation 2 puff inhalation Q4HP PRN 12/19/23 12/23/23 History aerosol inhaler Shortness Of Breath desvenlafaxine succinate 100 mg 100 mg PO DAILY 12/19/23 12/23/23 History tablet,extended release 24 hr (Pristiq) dextromethorphan IR 45 1 tab PO BID 12/19/23 12/23/23 History mg-bupropion ER 105 mg biphasic tablet (Auvelity) diazepam 10 mg tablet (Valium) 10 mg PO BIDP PRN anxiety 12/19/23 12/23/23 History insulin glargine U-300 conc 300 10 unit SQ HS 12/19/23 12/23/23 History unit/mL (3 mL) subcutaneous pen (Toujeo Max U-300 SoloStar) insulin lispro 100 unit/mL 10 unit SQ TID 12/19/23 12/23/23 History subcutaneous pen (Humalog KwikPen (U-100) Insulin) tirzepatide 10 mg/0.5 mL 10 mg SQ WEEKLY 12/19/23 12/23/23 History subcutaneous pen injector (Ashley) triamterene 37.5 1 tab PO DAILYP PRN Edema 12/19/23 12/23/23 History mg-hydrochlorothiazide 25 mg tablet azithromycin 500 mg tablet 500 mg PO DAILY 2 days #2 tabs 12/21/23 12/23/23 Rx cefdinir 300 mg capsule 300 mg PO BID #15 caps 12/21/23 12/23/23 Rx New Prescriptions to Start Prescriptions: Height: 1.68 m Weight: 90.066 kg Laboratory Results:: Laboratory Results - last 24 hr 12/23/23 11:55: WBC 19.3 H D, RBC 4.74, Hgb 14.6, Hct 45.3, MCV 95.4, MCH 30.8, MCHC 32.3, RDW 14.6, Plt Count 483 H, MPV 8.8, Neut % (Auto) 72.1, Lymph % (Auto) 17.0, [place] % (Auto) 9.0, Eos % (Auto) 0.4, Baso % (Auto) 1.6, Neut # (A uto) 13.9 H, Lymph # (Auto) 3.3, [place] # (Auto) 1.7 H, Eos # (Auto) 0.1, Baso # (Auto) 0.3 H, Total Counted 100, Neutrophils % (Manual) 78 H, Lymphocytes % (Manual) 20, Monocytes % (Manual) 1 L, Eosinophils % (Manual) 1, Nucleated RBCs 2, Platelet Estimate Slight increase, RBC Morphology Normal, PT 10.6, INR 0.94, APTT 32.4 H, VBG pH 7.34, VBG pCO2 34.5 L, VBG pO2 41.2 H, VBG HCO3 18.1 L, VBG Total CO2 19.2 L, VBG O2 Saturation 78.4 H, VBG Base Excess -7.7 L, VBG Lactic Acid 1.5, Sodium 135 L, Potassium 3.4 L, Chloride 100, Carbon Dioxide 19 L, Anion Gap 19.4 H, BUN 6 L D, Creatinine 0.60 D, Estimated Creat Clear 169, Estimated GFR 109, Est GFR ( Amer) 131 D, Glucose 224 H, Calcium 8.5, Total Bilirubin 0.6, AST 33, ALT 23, Alkaline Phosphatase 105, Troponin I < 0.01, Total Protein 7.2, Albumin 3.9, Globulin 3.3 H, Albumin/Globulin Ratio 1.2 12/23/23 12:06: SARS-CoV-2 (PCR) Not detected, Influenza A Untype (PCR) Not detected, Influenza Type B (PCR) Not detected Medical History: Medical History (Updated 12/23/23 @ 12:23 by Catrachita Mistry MD) Strep throat COVID-19 Bacteremia Asplenia Fever Acute hypokalemia Cough Acute viral syndrome General weakness Leukocytosis COVID-19 Hypertension Gastroenteritis Acute viral syndrome Grief Depression Migraine Diabetes mellitus, type 2 Hyperlipidemia Generalized anxiety disorder Type 2 diabetes mellitus Diabetes mellitus Assessment and Plan Assessment and plan all Dx Assessment and Plan for all problems:: PT RECEIVED AZITHROMYCIN 500MG IV, ROCEPHIN 1GM IV AND VANCOMYCIN 1750MG IV IN ER. ADMITTED TO FLOOR. ZOSYN 4.5GM IV EVERY 6 HOURS ORDERED. WILL CONTINUE VANCOMYCIN 1750MG (19MG/KG) EVERY 8 HOURS FOR PT AGE AND EXCELLENT RENAL FUNCTION. DRUG LEVELS WILL BE DRAWN IN AM AND DOSE ADJUSTED IF NECESSARY. PHARMACY WILL FOLLOW DAILY UNTIL VANCOMYCIN DISCONTINUED.
--- NOTE | 2023-12-23 15:48 | P.HP_ITS ---
History of Present Illness *Admission Date: 12/23/23 *Reason for visit:: SOB *History of present illness: Patient is a 43-year-old female with past medical history of diabetes mellitus hypertension asplenia asthma who presents to the hospital for worsening overall health. According to patient she was recently discharged from the hospital at that time she was diagnosed with pneumonia and started on antibiotics at discharge. Patient has generalized weakness, fatigue since her time of d ischarge. Patient also mentions having fevers. Patient also complains of shortness of breath productive cough. Patient was noticed to have low oxygen saturations in the emergency department and was mated for further evaluation. Patient denies chest pain nausea vomiting diarrhea. [facility] Disclaimer: The information contained in this section may have been updated after the patient was seen, as this information can be updated by other users. 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) History of splenectomy History of cholecystectomy History of appendectomy Family History , NUTRITION SERVICES ASSISTANT) Diabetes Father Grandfather FHx: mental illness Mother Cancer Grandmother Social History Smoking Status: Unknown if ever smoked second hand exposure: No alcohol intake: never substance use type: denies use current occupational status: employed and other details: she is in the process of getting a job; she is interviewing Travel in the last 8 weeks: None adopted: No caregiver/support person: Yes (she takes care of her grand-daughter) foster care: No household members: spouse housing: house marital status: number of children: 1 number of grandchildren: 1 education level: high school service: No senior care: No 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 current occupational exposures/hazards: No Hx Recent Travel: No sexually active: Yes caffeine: Yes physical activity: none working smoke detector in home: Yes fire extinguisher in home: Yes carbon monox detector in home: No firearms in home: Yes firearms unloaded and locked: Yes do you feel safe at home: Yes victim of physical abuse: No victim of emotional abuse: No victim of sexual abuse: No Review of Systems Review of Systems Review of systems:: pertinent systems reviewed and negative unless documented below Meds Home Medications and Allergies Home Medications ?Medication ?Instructions ?Recorded ?Confirmed ?Type bisoprolol fumarate 10 mg tablet 10 mg PO DAILY 10/02/20 12/23/23 History fenofibrate 160 mg tablet 160 mg PO DAILY 01/16/22 12/23/23 History cholecalciferol (vitamin D3) 125 125 mcg PO DAILY 02/08/23 12/23/23 History mcg (5,000 unit) tablet (Vitamin D3) ferrous sulfate 325 mg (65 mg 325 mg PO Q48H 02/08/23 12/23/23 History iron) tablet (FeroSul) gabapentin 300 mg capsule 300 mg PO BIDP PRN Neuropathic Pain 03/05/23 12/23/23 History rosuvastatin 20 mg tablet 20 mg PO DAILY 06/06/23 12/23/23 History albuterol sulfate 90 mcg/actuation 2 puff inhalation Q4HP PRN 12/19/23 12/23/23 History aerosol inhaler Shortness Of Breath desvenlafaxine succinate 100 mg 100 mg PO DAILY 12/19/23 12/23/23 History tablet,extended release 24 hr (Pristiq) dextromethorphan IR 45 1 tab PO BID 12/19/23 12/23/23 History mg-bupropion ER 105 mg biphasic tablet (Auvelity) diazepam 10 mg tablet (Valium) 10 mg PO BIDP PRN anxiety 12/19/23 12/23/23 His tory insulin glargine U-300 conc 300 10 unit SQ HS 12/19/23 12/23/23 History unit/mL (3 mL) subcutaneous pen (Toujeo Max U-300 SoloStar) insulin lispro 100 unit/mL 10 unit SQ TID 12/19/23 12/23/23 History subcutaneous pen (Humalog KwikPen (U-100) Insulin) tirzepatide 10 mg/0.5 mL 10 mg SQ WEEKLY 12/19/23 12/23/23 History subcutaneous pen injector (Ashley) triamterene 37.5 1 tab PO DAILYP PRN Edema 12/19/23 12/23/23 History mg-hydrochlorothiazide 25 mg tablet azithromycin 500 mg tablet 500 mg PO DAILY 2 days #2 tabs 12/21/23 12/23/23 Rx cefdinir 300 mg capsule 300 mg PO BID #15 caps 12/21/23 12/23/23 Rx New Prescriptions to Start Prescriptions: Allergies Allergy/AdvReac Type Severity Reaction Status Date / Time No Known Allergies Allergy Verified 11/05/23 16:07 Exam Data for Last 24 hours Vital signs and Labs for Last 24 Hours: Temp Pulse Resp BP Pulse Ox O2 Del Method O2 Flow Rate 98.7 F 79 16 98/65 L 92 L Nasal Cannula 3 12/23/23 13:25 12/23/23 13:25 12/23/23 13:25 12/23/23 13:25 12/23/23 13:25 12/23/23 15:00 12/23/23 15:00 Laboratory Results - last 24 hr 12/23/23 11:55: WBC 19.3 H D, RBC 4.74, Hgb 14.6, Hct 45.3, MCV 95.4, MCH 30.8, MCHC 32.3, RDW 14.6, Plt Count 483 H, MPV 8.8, Neut % (Auto) 72.1, Lymph % (Auto) 17.0, [place] % (Auto) 9.0, Eos % (Auto) 0.4, Baso % (Auto) 1.6, Neut # (Auto) 13.9 H, Lymph # (Auto) 3.3, [place] # (Auto) 1.7 H, Eos # (Auto) 0.1, Baso # (Auto) 0.3 H, Total Counted 100, Neutrophils % (Manual) 78 H, Lymphocytes % (Manual) 20, Monocytes % (Manual) 1 L, Eosinophils % (Manual) 1, Nucleated RBCs 2, Platelet Estimate Slight increase, RBC Morphology Normal, PT 10.6, INR 0.94, APTT 32.4 H, VBG pH 7.34, VBG pCO2 34.5 L, VBG pO2 41.2 H, VBG HCO3 18.1 L, VBG Total CO2 19.2 L, VBG O2 Saturation 78.4 H, VBG Base Excess -7.7 L, VBG Lactic Acid 1.5, Sodium 135 L, Potassium 3.4 L, Chloride 100, Carbon Dioxide 19 L, Anion Gap 19.4 H, BUN 6 L D, Creatinine 0.60 D, Estimated Creat Clear 169, Estimated GFR 109, Est GFR ( Amer) 131 D, Glucose 224 H, Calcium 8.5, Total Bilirubin 0.6, AST 33, ALT 23, Alkaline Phosphatase 105, Troponin I < 0.01, Total Protein 7.2, Albumin 3.9, Globulin 3.3 H, Albumin/Globulin Ratio 1.2 12/23/23 12:06: SARS-CoV-2 (PCR) Not detected, Influenza A Untype (PCR) Not detected, Influenza Type B (PCR) Not detected I & O for Last 24 hours: Intake & Output 12/20/23 12/21/23 12/22/23 12/23/23 23:59 23:59 23:59 23:59 Weight 90.066 kg Constitutional Constitutional: no acute distress *Routine HEENT Exam Head: Present normocephalic Eye: Present EOMI and PERRL ENT: Present mucous membranes moist *Routine Neck Exam Neck: Present supple; Absent lymphadenopathy *Routine Respiratory Exam Respiratory: Present CTA bilaterally *Routine Cardiovascular Exam Cardiovascular: Present RRR *Routine Abdominal Exam Abdominal: Present soft and normoactive bowel sounds; Absent tenderness *Routine Rectal Exam Rectal:: deferred *Routine Genitalia Exam Genitalia:: deferred *Routine Extremities Exam Extremities: Absent cyanosis, clubbing or edema *Routine Skin Exam Skin: Present warm; Absent rash *Routine Neurological Exam Neurological: Present alert and oriented X3 Assessment and Plan *Assessment and plan (1) Hypoxic respiratory failure: Status: Acute Category: Medical Code(s): J96.91 - Respiratory failure, unspecified with hypoxia (2) Multifocal pneumonia: Status: Acute Category: Medical Code(s): J18.9 - Pneumonia, unspecified organism (3) Asplenia: Status: Acute Category: Medical Code(s): Q89.01 - Asplenia (congenital) (4) Severe sepsis: Status: Acute Category: Medical Code(s): A41.9 - Sepsis, unspecified organism; R65.20 - Severe sepsis without septic shock (5) Diabetes mellitus, type 2: Status: Acute Qualifiers: Diabetes mellitus residential insulin use: with residential use Diabetes mellitus complication status: with hypoglycemia Diabetes mellitus complication detail: without coma Qualified Code(s): E11.649 - Type 2 diabetes mellitus with hypoglycemia without coma; 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 According to patient she was recently discharged from the hospital at that time she was diagnosed with pneumonia and started on antibiotics at discharge. Patient has generalized weakness, fatigue since her time of discharge. Patient also mentions having fevers. Patient also complains of shortness of breath productive cough. Patient was noticed to have low oxygen saturations in the emergency department and was mated for further evaluation. Patient denies chest pain nausea vomiting diarrhea. Assessment and plan Sepsis present on admission likely source pulmonary Pneumonia, suspect gram-positive organism in the setting of asplenia Start vancomycin, Zosyn Start IV fluids Check procalcitonin Check MRSA nasal swab, check urine Legionella antigen Check urine Streptococcus pneumonia antigen Check rapid flu antigen, COVID antigen CT chest performed in the emergency department does show nodular opacities in the right upper lung suspicious for pneumonia Hypokalemia Monitor and replace electrolytes Anion gap metabolic acidosis likely secondary to sepsis Continue IV fluids Hyperglycemia likely secondary to uncontrolled diabetes mellitus Insulin sliding scale Long-acting insulin DVT prophylaxis-heparin
[2023-12-23 15:50] LABS: Troponin I < 0.01 ng/ml (0.00-0.034)
[2023-12-23] MEDS: PIPERACILLIN/TAZO 4.5 GM in 0.9 % SODIUM CHLORIDE 100 ML IV ×2 (15:57→20:13)
[2023-12-23] MEDS: POTASSIUM CHLORIDE 20MEQ TAB 20 MEQ PO (16:31)
[2023-12-23] MEDS: 0.9 % SODIUM CHLORIDE 1000ML 1,000 ML 75 ML IV (16:38)
--- NOTE | 2023-12-23 17:04 | PC.NURSE ---
NEW ADMIT THIS SHIFT FOR PNA, REQUIRES 2LNC FOR O2 SUPPORT. HAS RESTED IN BED SINCE ARRIVAL TO FLOOR.
[2023-12-23 18:18] LABS: Troponin I < 0.01 ng/ml (0.00-0.034)
[2023-12-23 19:17] LABS: Procalcitonin 0.113 ng/mL (0.0-2.0)
[2023-12-23] MEDS: NYSTATIN SUSP 500,000 UNITS/5ML UDC 500000 UNIT PO (20:26)
--- NOTE | 2023-12-23 20:27 | PC.NURSE ---
patients mouth is red, yeast like, and painful. Contacted [facility] for Nystatin PO.
--- NOTE | 2023-12-23 20:29 | PC.NURSE ---
patient was gave an IS and this RN provided education on how to use and reasoning why - patient verbalized understanding.
[2023-12-23 21:10] LABS: POC Glucose,Bedside 225 (70-110)
[2023-12-23] MEDS: ATORVASTATIN 40MG TABLET 40 MG PO (21:33)
[2023-12-23] MEDS: humaLOG 100 UNITS/ML 10ML VIAL (SSI) SQ (21:33)
[2023-12-23] MEDS: FERROUS SULFATE 325MG TABLET 325 MG PO (21:33)
[2023-12-23] MEDS: ACETAMINOPHEN 325MG/10.15ML UDC 650 MG PO (21:49)
[2023-12-24] VITALS (8 sets, daily range): BP systolic 122–143; BP diastolic 68–85; PULSE 64–120; RESP 16–18; TEMP 36.6–37.4; O2SAT 90–97; BMI 32.2
[2023-12-24] MEDS: PIPERACILLIN/TAZO 4.5 GM in 0.9 % SODIUM CHLORIDE 100 ML IV ×4 (03:24→20:22)
[2023-12-24] MEDS: HEPARIN SODIUM 5,000 UNIT/ML VIAL 5000 UNIT SQ ×3 (05:34→19:51)
[2023-12-24] MEDS: 0.9 % SODIUM CHLORIDE 1000ML 1,000 ML 75 ML IV (05:34)
[2023-12-24] MEDS: humaLOG 100 UNITS/ML 10ML VIAL (SSI) SQ ×4 (05:39→20:22)
[2023-12-24] MEDS: ACETAMINOPHEN 325MG/10.15ML UDC 650 MG PO ×3 (05:39→19:54)
[2023-12-24] MEDS: humaLOG 100 UNITS/ML 10ML VIAL (SSI) 10 UNIT SQ (05:40)
[2023-12-24 05:43] LABS: POC Glucose,Bedside 215 (70-110)
[2023-12-24] MEDS: PHA TO NURSING INSTRUCTION 1 EACH NOTAPPLIC (05:43)
[2023-12-24] MEDS: VANCOMYCIN/WATER FOR INJ (PEG) 1.75 GM/350 ML PIGGYBACK IV ×3 (05:43→19:49)
[2023-12-24] MEDS: PHENOL THROAT SPRAY 177 ML BOTTLE MM (06:03)
[2023-12-24 06:33] LABS: Basophils # 0.3 K/mm3 (0-0.2); Basophils % 1.9 % (0.1-2.0); Eosinophils # 0.1 K/mm3 (0.0-0.4); Eosinophils % 0.6 % (0.1-12.0); Hematocrit 45.9 % (37.0-47.0); Lymphocytes % 25.9 % (10-50); Mean Corpuscular HGB Conc 30.4 g/dL (31.8-35.4); Mean Corpuscular Hemoglobin 30.4 pg (27.0-31.2); Mean Corpuscular Volume 100.1 fl (81-99); Mean Platelet Volume 9.8 fl (7.4-10.4); Monocytes # 1.6 K/mm3 (0.1-1.0); Monocytes % 10.7 % (1.7-9.3); Neutrophils # 9.4 K/mm3 (1.8-7.8); Neutrophils % 60.9 % (37.0-80.0); Platelet Count 530 K/mm3 (142-424); Red Blood Count 4.59 M/mm3 (4.20-5.40); Red Cell Distribution Width 14.4 % (11.5-17.5); White Blood Count 15.4 K/mm3 (4.8-10.8)
[2023-12-24 06:34] LABS: Chloride 107 mmol/L (98-107); Potassium 3.8 mmoL/L (3.5-5.1); Sodium 138 mmol/L (136-145)
[2023-12-24 06:35] LABS: MANUAL DIFFERENTIAL MANUAL DIFFERENTIAL (MANUAL DIFF)
[2023-12-24 06:37] LABS: Anion Gap 14.8 mEq/L (5-15); Blood Urea Nitrogen 6 mg/dl (7-17); Calcium 8.1 mg/dl (8.4-10.2); Carbon Dioxide 20 mmol/L (22.0-30.0); Creatinine Clearance Estimated 172 mL/min (50-200); Estimated Glomerular Filt Rate 109 ml/min (>60); GFR (African American) 131 ML/MIN (>60); Glucose 197 mg/dl (74-100)
[2023-12-24 07:32] LABS: Vancomycin,Trough 12.4 ug/mL (5.0-10.0)
--- NOTE | 2023-12-24 08:02 | CT_ITS ---
FINAL REPORT TECHNIQUE: Thin section axial CT images with coronal and sagittal reformats were performed after the administration of IV contrast. This study was performed with techniques to keep radiation doses as low as reasonably achievable (ALARA). Individualized dose reduction techniques using automated exposure control or adjustment of mA and/or kV according to the patient's size were employed. CLINICAL HISTORY: eval for tonsilar abscess COMPARISON: None FINDINGS: There are multiple mildly enlarged cervical and submandibular nodes present, more numerous than would be expected. The largest submandibular node measures up to 1.6 cm in size, the left anterior cervical node chain measures up to 2.3 cm in size, and in the supraclavicular area adenopathy measures up to 1.6 cm in size. Salivary glands are normal. Larynx is unremarkable. Thyroid gland is unremarkable. No evidence of a peritonsillar mass or fluid collection to suggest an abscess is seen. IMPRESSION: Extensive cervical and submandibular adenopathy is present, more numerous than would be normally expected. There is also right supraclavicular adenopathy as well. The differential diagnosis is extensive, however either an infectious etiology or neoplasm would be the most likely etiologies. No evidence of a peritonsillar mass or fluid collection to suggest an abscess is seen. Reviewed, Interpreted and Dictated by Willis Duran MD Transcribed by Flori Leonard Authenticated and [facility]
--- NOTE | 2023-12-24 08:07 | EXP.ACUTE.PN ---
Subjective *Date: 12/24/23 *Time: 08:24 Interval history: Patient represented to emergency room yesterday after being discharged by Dr. Harris 12/20. Patient complained of renewed weakness, shortness of breath, hoarseness, throat pain. Patient admits compliance with outpatient antibiotics. Patient states she initially felt better for 24 hours after discharge then I got worse so I came back. Admits to dyspnea, throat pain, hoarseness, CASTLE and weakness. Medical Exam Vital signs and Labs for Last 24 Hours: Vital Signs Temp Pulse Pulse Resp BP BP Pulse Ox 12/24/23 06:21 12/24/23 05:00 12/24/23 04:00 98.4 F 120 H 16 122/68 96 12/24/23 03:00 12/24/23 01:00 12/23/23 23:57 100.6 F H 103 H 16 122/66 93 L 12/23/23 23:00 12/23/23 21:00 12/23/23 20:00 99.6 F 102 H 18 145/88 H 97 12/23/23 20:00 12/23/23 18:11 12/23/23 17:00 12/23/23 15:59 97.9 F 96 H 16 110/65 96 12/23/23 15:00 12/23/23 13:25 98.7 F 79 16 98/65 L 92 L 12/23/23 13:07 102.6 F H 101 H 17 138/88 12/23/23 13:00 12/23/23 11:53 102.6 F H 12/23/23 11:30 101 H 17 138/88 97 12/23/23 11:00 112 H 159/84 H 92 L 12/23/23 10:46 98.9 F 106 H 20 142/76 H 93 L O2 Del Method O2 Flow Rate 12/24/23 06:21 Nasal Cannula 2 12/24/23 05:00 Nasal Cannula 2 12/24/23 04:00 Nasal Cannula 2 12/24/23 03:00 Nasal Cannula 2 12/24/23 01:00 Nasal Cannula 2 12/23/23 23:57 Room Air 12/23/23 23:00 Nasal Cannula 2 12/23/23 21:00 Nasal Cannula 2 12/23/23 20:00 Nasal Cannula 2 12/23/23 20:00 Nasal Cannula 2 12/23/23 18:11 Nasal Cannula 2 12/23/23 17:00 Nasal Cannula 2 12/23/23 15:59 Nasal Cannula 2 12/23/23 15:00 Nasal Cannula 2 12/23/23 13:25 Nasal Cannula 2 12/23/23 13:07 Nasal Cannula 3 12/23/23 13:00 Nasal Cannula 2 12/23/23 11:53 12/23/23 11:30 12/23/23 11:00 12/23/23 10:46 Room Air Intake and Output 12/23/23 12/24/23 12/24/23 23:59 07:59 15:59 Intake Total 360 / 810 1891 / 1892 Output Total 0 / 0 0 / 0 Balance 360 / 810 1891 / 189 Intake: Intake, Oral Amount 360 / 360 Intake, Total IV Amount 1891 0.9 % Sodium Chloride 1000ML 1, 1342 / 1342 000 ml @ 75 mls/hr IV .[id number] [facility] Rx#:[id number] Piperacillin/Tazo 4.5 gm In 0.9 200 / 200 % Sodium Chloride 100 ml @ 200 mls/hr IV Q6H [facility] Rx#:[id number] Vancomycin/Water For Inj (Peg) 350 / 350 1.75 gm In 350 ml @ 175 mls/hr IV ONCE ONE Rx#:[id number] Output: Output, Urine Amount 0 / 0 0 / 0 Other: Number of Voids 1 Number of Unmeasured Voids 1 1 Weight 91.036 kg Patient Weight 12/24/23 23:59 Weight 91.036 kg Laboratory Results - last 24 hr 12/23/23 08:35: Procalcitonin 0.113 12/23/23 11:55: WBC 19.3 H D, RBC 4.74, Hgb 14.6, Hct 45.3, MCV 95.4, MCH 30.8, MCHC 32.3, RDW 14.6, Plt Count 483 H, MPV 8.8, Neut % (Auto) 72.1, Lymph % (Auto) 17.0, [place] % (Auto) 9.0, Eos % (Auto) 0.4, Baso % (Auto) 1.6, Neut # (Auto) 13.9 H, Lymph # (Auto) 3.3, [place] # (Auto) 1.7 H, Eos # (Auto) 0.1, Baso # (Auto) 0.3 H, Total Counted 100, Neutrophils % (Manual) 78 H, Lymphocytes % (Manual) 20, Monocytes % (Manual) 1 L, Eosinophils % (Manual) 1, Nucleated RBCs 2, Platelet Estimate Slight increase, RBC Morphology Normal, PT 10.6, INR 0.94, APTT 32.4 H, VBG pH 7.34, VBG pCO2 34.5 L, VBG pO2 41.2 H, VBG HCO3 18.1 L, VBG Total CO2 19.2 L, VBG O2 Saturation 78.4 H, VBG Base Excess -7.7 L, VBG Lactic Acid 1.5, Sodium 135 L, Potassium 3.4 L, Chloride 100, Carbon Dioxide 19 L, Anion Gap 19.4 H, BUN 6 L D, Creatinine 0.60 D, Estimated Creat Clear 169, Estimated GFR 109, Est GFR ( Amer) 131 D, Glucose 224 H, Calcium 8.5, Total Bilirubin 0.6, AST 33, ALT 23, Alkaline Phosphatase 105, Troponin I < 0.01, Total Protein 7.2, Albumin 3.9, Globulin 3.3 H, Albumin/Globulin Ratio 1.2 12/23/23 12:06: SARS-CoV-2 (PCR) Not detected, Influenza A Untype (PCR) Not detected, Influenza Type B (PCR) Not detected 12/23/23 15:15: Troponin I < 0.01 12/23/23 17:53: Troponin I < 0.01 12/23/23 20:43: POC Glucose 225 H 12/24/23 05:35: POC Glucose 215 H 12/24/23 05:40: WBC 15.4 H, RBC 4.59, Hgb 14.0, Hct 45.9, MCV 100.1 H, MCH 30.4, MCHC 30.4 L, RDW 14.4, Plt Count 530 H, MPV 9.8, Neut % (Auto) 60.9, Lymph % (Auto) 25.9, [place] % (Auto) 10.7 H, Eos % (Auto) 0.6, Baso % (Auto) 1.9, Neut # (Auto) 9.4 H, Lymph # (Auto) 4.0, [place] # (Auto) 1.6 H, Eos # (Auto) 0.1, Baso # (Auto) 0.3 H, Sodium 138, Potassium 3.8, Chloride 107, Carbon Dioxide 20 L, Anion Gap 14.8, BUN 6 L, Creatinine 0.60, Estimated Creat Clear 172, Estimated GFR 109, Est GFR ( Amer) 131, Glucose 197 H, Calcium 8.1 L, Vancomycin Trough 12.4 H 12/23/23 08:35 Procalcitonin 0.113 ? ng/mL 0.0-2.0 12/21/23 05:59 Procalcitonin 0.204 ? ng/mL 0.0-2.0 12/20/23 10:25 Procalcitonin 0.284 ? ng/mL 0.0-2.0 I & O for Labs for Last 24 Hours: Intake & Output 12/21/23 12/22/23 12/23/23 12/24/23 23:59 23:59 23:59 23:59 Intake Total 360 / 810 189 / 1892 Output Total 0 / 0 0 / 0 Balance 360 / 810 189 / 189 Weight 90.066 kg 91.036 kg Microbiology Reports for the Last 24 Hours: 12/22 blood cultures pending 12/22 sputum culture ordered Radiology Reports for the Last 24 Hours: 12/23/2023 CT chest: IMPRESSION: Patchy somewhat nodular airspace opacities right upper lobe. Findings most compatible with a developing pneumonia. Head: Present normocephalic ENT: Present normal exam, normal oropharynx and mucous membranes moist Neck: Present tenderness (Left anterior cervical chain tenderness to palpation, left tonsillar bed inflamed with whitish exudate on tonsils.) Respiratory: Present decreased breath sounds Cardiac: Present Reg Rate and Rhythm, Regular Rate and Regular Rhythm GI: Present soft, guarding, rebound and normal bowel sounds Rectal (female): Present deferred (female): Present deferred Extremities: Present normal inspection, full ROM and normal capillary refill Skin: Present intact and erythema Neuro: Present alert and oriented x 3 Assessment and Plan *Assessment and plan (1) Multifocal pneumonia: Status: Acute Category: Medical Code(s): J18.9 - Pneumonia, unspecified organism (2) Hypoxic respiratory failure: Status: Acute Category: Medical Code(s): J96.91 - Respiratory failure, unspecified with hypoxia (3) Asplenia: Status: Acute Category: Medical Code(s): Q89.01 - Asplenia (congenital) (4) Severe sepsis: Status: Acute Category: Medical Code(s): A41.9 - Sepsis, unspecified organism; R65.20 - Severe sepsis without septic shock (5) Strep throat: Status: Acute Category: Medical Code(s): J02.0 - Streptococcal pharyngitis (6) Community acquired pneumonia: Status: Acute Category: Medical Code(s): J18.9 - Pneumonia, unspecified organism (7) Upper respiratory infection: Status: Acute Qualifiers: URI type: unspecified viral URI Qualified Code(s): J06.9 - Acute upper respiratory infection, unspecified Category: Medical Code(s): J06.9 - Acute upper respiratory infection, unspecified Plan 43-year-old female with past medical history of hypertension, diabetes, asplenia who presents with fevers, shortness of breath, malaise, new oxygen requirement. Patient seen PCP 12/16, diagnosed with strep throat, and started on p.o. doxycycline and IM Rocephin. Patient admitted by Dr. Harris 12/18 till 12/20 treated for pneumonia with IV antibiotics. Patient discharged on p.o. antibiotics(10 days PO cefdinir, 3 days PO azithromycin). Patient represented to emergency room for hospital admission 12/23/2023 complaining of hoarseness, SOB, weakness. Patient being treated for community-acquired pneumonia and possible peritonsillar abscess. Healthcare associated pneumonia, failed outpatient management: ? reStart with broad-spectrum antibiotics, repeat sputum cultures, respiratory panel PCR, consult pulmonary for management advised. Follow inflammatory markers including WBC, procalcitonin, CRP. Scheduled nebulization treatments and as needed. CT chest from 12/22 shows right upper lobe infiltrate similar to admission x-ray chest 12/18. Possible peritonsillar abscess: ? 12/23 patient extremely tender with left anterior cervical chain lymphadenopathy noted. Left tonsillar bed also appears extremely inflamed. Check CT neck, CT facial bones looking for signs of peritonsillar abscess. If peritonsillar abscess noted, low threshold to discuss case with ENT Dr. Stallings([facility]). Continue broad-spectrum IV antibiotics. Patient's procalcitonin trending downward since 12/19, but white blood count shows upward trend. Worried patient might be suffering from peritonsillar abscess affecting antibiotic amelioration of infection. Diabetes: Sign scale insulin, ACHS Accu-Cheks Hypertension: Continue home management and as needed IV hydralazine if needed PPx: Lovenox subcutaneous CODE STATUS full FEN: Diabetic diet Disposition: ? Given patient's recent hospitalization of 48 hours on IV antibiotics, then immediately failing outpatient home antibiotics cefdinir/azithromycin, patient will likely remain in hospital for longer duration on IV antibiotics. Low threshold to transfer patient to tertiary center of excellence if patient shows signs of resistant infection given asplenia pathology.
[2023-12-24] MEDS: SODIUM CHLORIDE 0.9% 10ML SYR (RAD ONLY) 10 ML IV (09:01)
[2023-12-24] MEDS: IOPAMIDOL-370 (76%);100ML BOTTLE 75 ML IV (09:01)
[2023-12-24] MEDS: NYSTATIN SUSP 500,000 UNITS/5ML UDC 500000 UNIT PO ×4 (09:09→20:22)
[2023-12-24] MEDS: FENOFIBRATE 134MG CAPSULE 134 MG PO (09:10)
[2023-12-24] MEDS: CHOLECALCIFEROL 1,000 UNITS (25MCG) TABLET 50 MCG PO (09:10)
[2023-12-24] MEDS: BISOPROLOL 5MG TABLET 10 MG PO (09:10)
[2023-12-24 09:36] LABS: Vancomycin,Peak 38.6 ug/ml (11-39)
[2023-12-24 09:39] LABS: Adenovirus,PCR Not Detected (NotDetected); Bordetella Pertussis Not Detected (NotDetected); Chlamydophila Pneumoniae, PCR Not Detected (NotDetected); Coronavirus 19, PCR Not Detected (NotDetected); Coronavirus 229E Not Detected (NotDetected); Coronavirus NL63 Not Detected (NotDetected); Coronavirus OC43 Not Detected (NotDetected); Coronovirus HKU1,PCR Not Detected (NotDetected); Human Metapneumovirus Not Detected (NotDetected); Influenza A, PCR Not Detected (NotDetected); Influenza AH1, 2009 Not Detected (NotDetected); Influenza AH1, PCR Not Detected (NotDetected); Influenza AH3,PCR Not Detected (NotDetected); Influenza B, PCR Not Detected (NotDetected); Mycoplasma Pneumoniae, PCR Not Detected (NotDetected); Parainfluenza 1, PCR Not Detected (NotDetected); Parainfluenza 2, PCR Not Detected (NotDetected); Parainfluenza 3, PCR Not Detected (NotDetected); Parainfluenza 4, PCR Not Detected (NotDetected); Respiratory Syncytial Virus Not Detected (NotDetected); Rhinovirus/Enterovirus Not Detected (NotDetected)
--- NOTE | 2023-12-24 09:46 | EXP.PHA.CONS ---
Pharmacy Consult Date: 12/24/23 Time: 09:46 Referring provider: DR. DAVIS Reason for Consult:: VANCOMYCIN TROUGH/PEAK LEVELS Allergies Allergy/AdvReac Type Severity Reaction Status Date / Time No Known Allergies Allergy Verified 11/05/23 16:07 Home Medications ?Medication ?Instructions ?Recorded ?Confirmed ?Type bisoprolol fumarate 10 mg tablet 10 mg PO DAILY 10/02/20 12/23/23 History fenofibrate 160 mg tablet 160 mg PO DAILY 01/16/22 12/23/23 History cholecalciferol (vitamin D3) 125 125 mcg PO DAILY 02/08/23 12/23/23 History mcg (5,000 unit) tablet (Vitamin D3) ferrous sulfate 325 mg (65 mg 325 mg PO Q48H 02/08/23 12/23/23 History iron) tablet (FeroSul) gabapentin 300 mg capsule 300 mg PO BIDP PRN Neuropathic Pain 03/05/23 12/23/23 History rosuvastatin 20 mg tablet 20 mg PO DAILY 06/06/23 12/23/23 History albuterol sulfate 90 mcg/actuation 2 puff inhalation Q4HP PRN 12/19/23 12/23/23 History aerosol inhaler Shortness Of Breath desvenlafaxine succinate 100 mg 100 mg PO DAILY 12/19/23 12/23/23 History tablet,extended release 24 hr (Pristiq) dextromethorphan IR 45 1 tab PO BID 12/19/23 12/23/23 History mg-bupropion ER 105 mg biphasic tablet (Auvelity) diazepam 10 mg tablet (Valium) 10 mg PO BIDP PRN anxiety 12/19/23 12/23/23 History insulin glargine U-300 conc 300 10 unit SQ HS 12/19/23 12/23/23 History unit/mL (3 mL) subcutaneous pen (Toujeo Max U-300 SoloStar) insulin lispro 100 unit/mL 10 unit SQ TID 12/19/23 12/23/23 History subcutaneous pen (Humalog KwikPen (U-100) Insulin) tirzepatide 10 mg/0.5 mL 10 mg SQ WEEKLY 12/19/23 12/23/23 History subcutaneous pen injector (Ashley) triamterene 37.5 1 tab PO DAILYP PRN Edema 12/19/23 12/23/23 History mg-hydrochlorothiazide 25 mg tablet azithromycin 500 mg tablet 500 mg PO DAILY 2 days #2 tabs 12/21/23 12/23/23 Rx cefdinir 300 mg capsule 300 mg PO BID #15 caps 12/21/23 12/23/23 Rx New Prescriptions to Start Prescriptions: Height: 1.68 m Weight: 91.036 kg Laboratory Results:: Laboratory Results - last 24 hr 12/23/23 08:35: Procalcitonin 0.113 12/23/23 11:55: WBC 19.3 H D, RBC 4.74, Hgb 14.6, Hct 45.3, MCV 95.4, MCH 30.8, MCHC 32.3, RDW 14.6, Plt Count 483 H, MPV 8.8, Neut % (Auto) 72.1, Lymph % (Auto) 17.0, [place] % (Auto) 9.0, Eos % (Auto) 0.4, Baso % (Auto) 1.6, Neut # (Auto) 13.9 H, Lymph # (Auto) 3.3, [place] # (Auto) 1.7 H, Eos # (Auto) 0.1, Baso # (Auto) 0.3 H, Total Counted 100, Neutrophils % (Manual) 78 H, Lymphocytes % (Manual) 20, Monocytes % (Manual) 1 L, Eosinophils % (Manual) 1, Nucleated RBCs 2, Platelet Estimate Slight increase, RBC Morphology Normal, PT 10.6, INR 0.94, APTT 32.4 H, VBG pH 7.34, VBG pCO2 34.5 L, VBG pO2 41.2 H, VBG HCO3 18.1 L, VBG Total CO2 19.2 L, VBG O2 Saturation 78.4 H, VBG Base Excess -7.7 L, VBG Lactic Acid 1.5, Sodium 135 L, Potassium 3.4 L, Chloride 100, Carbon Dioxide 19 L, Anion Gap 19.4 H, BUN 6 L D, Creatinine 0.60 D, Estimated Creat Clear 169, Estimated GFR 109, Est GFR ( Amer) 131 D, Glucose 224 H, Calcium 8.5, Total Bilirubin 0.6, AST 33, ALT 23, Alkaline Phosphatase 105, Troponin I < 0.01, Total Protein 7.2, Albumin 3.9, Globulin 3.3 H, Albumin/Globulin Ratio 1.2 12/23/23 12:06: SARS-CoV-2 (PCR) Not detected, Influenza A Untype (PCR) Not detected, Influenza Type B (PCR) Not detected 12/23/23 15:15: Troponin I < 0.01 12/23/23 17:53: Troponin I < 0.01 12/23/23 20:43: POC Glucose 225 H 12/24/23 05:35: POC Glucose 215 H 12/24/23 05:40: WBC 15.4 H, RBC 4.59, Hgb 14.0, Hct 45.9, MCV 100.1 H, MCH 30.4, MCHC 30.4 L, RDW 14.4, Plt Count 530 H, MPV 9.8, Neut % (Auto) 60.9, Lymph % (Auto) 25.9, [place] % (Auto) 10.7 H, Eos % (Auto) 0.6, Baso % (Auto) 1.9, Neut # (Auto) 9.4 H, Lymph # (Auto) 4.0, [place] # (Auto) 1.6 H, Eos # (Auto) 0.1, Baso # (Auto) 0.3 H, Sodium 138, Potassium 3.8, Chloride 107, Carbon Dioxide 20 L, Anion Gap 14.8, BUN 6 L, Creatinine 0.60, Estimated Creat Clear 172, Estimated GFR 109, Est GFR ( Amer) 131, Glucose 197 H, Calcium 8.1 L, Vancomycin Trough 12.4 H 12/24/23 08:47: Vancomycin Peak 38.6 Medical History: Medical History (Updated 12/23/23 @ 12:23 by Catrachita Mistry MD) Strep throat COVID-19 Bacteremia Asplenia Fever Acute hypokalemia Cough Acute viral syndrome General weakness Leukocytosis COVID-19 Hypertension Gastroenteritis Acute viral syndrome Grief Depression Migraine Diabetes mellitus, type 2 Hyperlipidemia Generalized anxiety disorder Type 2 diabetes mellitus Diabetes mellitus Assessment and Plan Assessment and plan all Dx Assessment and Plan for all problems:: BASED ON PATIENT FACTORS AND VANCOMYCIN TROUGH/PEAK LEVELS OF 12.4/38.6 RESPECTIVELY, RECOMMEND CONTINUING CURRENT DOSE OF VANCOMYCIN AT 1,750MG EVERY 8 HOURS. PHARMACY WILL CONTINUE TO MONITOR AND ADJUST DOSE APPROPRIATE. -LINDY HUMMEL, FAINA
--- NOTE | 2023-12-24 09:57 | EXP.PULM.CON ---
History of Present Illness History of present illness: Ms. Garcia is a 43-year-old female with reported history of diabetes mellitus hypertension asplenia and asthma presented here with worsening distress and pulmonary was called for further evaluation and management. [facility] Disclaimer: The information contained in this section may have been updated after the patient was seen, as this information can be updated by other users. Medical History (Updated 12/24/23 @ 15:08 by Stephanie Darnell MD) Pneumonia Strep throat COVID-19 Bacteremia Asplenia Fever Acute hypokalemia Cough Acute viral syndrome General weakness Leukocytosis COVID-19 Hypertension Gastroenteritis Acute viral syndrome Grief Depression Migraine Diabetes mellitus, type 2 Hyperlipidemia Generalized anxiety disorder Type 2 diabetes mellitus Diabetes mellitus Surgical History , [employer]) History of splenectomy History of cholecystectomy History of appendectomy Family History , CHILDR[employer]ITER[employer] PROFESSOR) Diabetes Father Grandfather FHx: mental illness Mother Cancer Grandmother Social History Smoking Status: Unknown if ever smoked second hand exposure: No alcohol intake: never substance use type: denies use current occupational status: employed and other details: she is in the process of getting a job; she is interviewing Travel in the last 8 weeks: None adopted: No caregiver/support person: Yes (she takes care of her grand-daughter) foster care: No household members: spouse housing: house marital status: number of children: 1 number of grandchildren: 1 education level: high school service: No skilled nursing: No 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 [employer] current occupational exposures/hazards: No Hx Recent Travel: No sexually active: Yes caffeine: Yes physical activity: none working smoke detector in home: Yes fire extinguisher in home: Yes carbon monox detector in home: No firearms in home: Yes firearms unloaded and locked: Yes do you feel safe at home: Yes victim of physical abuse: No victim of emotional abuse: No victim of sexual abuse: No Review of Systems Constitutional Constitutional: Reports anorexia, Reports body ache(s) and Reports fatigue Eyes Eyes: Denies eye discharge, Denies dry eyes, Denies irritation and Denies itchy eyes ENT Ears, Nose, Mouth, and Throat: Denies epistaxis, Denies facial pain, Reports hoarseness, Denies lip swelling, Reports neck pain, Reports sore throat and Denies throat swelling *Cardiovascular Cardiovascular: Reports dyspnea and Reports dyspnea on exertion *Respiratory Respiratory: Denies change in phlegm color, Reports chest congestion, Reports cough, Reports dyspnea, Reports dyspnea on exertion, Reports excessive phlegm production and Denies wheezing *Gastrointestinal Gastrointestinal: Denies abdominal pain, Denies belching and Denies cramping *Musculoskeletal Musculoskeletal: Reports back pain, Reports myalgias, Reports neck pain and Reports other (No small joint swelling or Pain) Psychiatric Psychiatric: Denies homicidal ideation and Denies suicidal ideation Endocrine Endocrine: Reports fatigue and Denies heat intolerance Hematologic/Lymphatic Hematologic/Lymphatic: Denies easy bleeding and Denies lymphadenopathy Allergic/Immunologic Allergic/Immunologic: Denies itchy eyes, Denies lip swelling, Denies throat swelling and Denies wheezing Pulmonology Exam Inpatient Vital signs and Labs for Last 24 Hours: Temp Pulse Resp BP Pulse Ox O2 Del Method O2 Flow Rate 98.2 F 110 H 18 143/73 H 90 L Room Air 2 12/24/23 08:00 12/24/23 08:00 12/24/23 08:00 12/24/23 08:00 12/24/23 09:52 12/24/23 09:52 12/24/23 08:00 Laboratory Results - last 24 hr 12/23/23 08:35: Procalcitonin 0.113 12/23/23 11:55: WBC 19.3 H D, RBC 4.74, Hgb 14.6, Hct 45.3, MCV 95.4, MCH 30.8, MCHC 32.3, RDW 14.6, Plt Count 483 H, MPV 8.8, Neut % (Auto) 72.1, Lymph % (Auto) 17.0, [place] % (Auto) 9.0, Eos % (Auto) 0.4, Baso % (Auto) 1.6, Neut # (Auto) 13.9 H, Lymph # (Auto) 3.3, [place] # (Auto) 1.7 H, Eos # (Auto) 0.1, Baso # (Auto) 0.3 H, Total Counted 100, Neutrophils % (Manual) 78 H, Lymphocytes % (Manual) 20, Monocytes % (Manual) 1 L, Eosinophils % (Manual) 1, Nucleated RBCs 2, Platelet Estimate Slight increase, RBC Morphology Normal, PT 10.6, INR 0.94, APTT 32.4 H, VBG pH 7.34, VBG pCO2 34.5 L, VBG pO2 41.2 H, VBG HCO3 18.1 L, VBG Total CO2 19.2 L, VBG O2 Saturation 78.4 H, VBG Base Excess -7.7 L, VBG Lactic Acid 1.5, Sodium 135 L, Potassium 3.4 L, Chloride 100, Carbon Dioxide 19 L, Anion Gap 19.4 H, BUN 6 L D, Creatinine 0.60 D, Estimated Creat Clear 169, Estimated GFR 109, Est GFR ( Amer) 131 D, Glucose 224 H, Calcium 8.5, Total Bilirubin 0.6, AST 33, ALT 23, Alkaline Phosphatase 105, Troponin I < 0.01, Total Protein 7.2, Albumin 3.9, Globulin 3.3 H, Albumin/Globulin Ratio 1.2 12/23/23 12:06: SARS-CoV-2 (PCR) Not detected, Influenza A Untype (PCR) Not detected, Influenza Type B (PCR) Not detected 12/23/23 15:15: Troponin I < 0.01 12/23/23 17:53: Troponin I < 0.01 12/23/23 20:43: POC Glucose 225 H 12/24/23 05:35: POC Glucose 215 H 12/24/23 05:40: WBC 15.4 H, RBC 4.59, Hgb 14.0, Hct 45.9, MCV 100.1 H, MCH 30.4, MCHC 30.4 L, RDW 14.4, Plt Count 530 H, MPV 9.8, Neut % (Auto) 60.9, Lymph % (Auto) 25.9, [place] % (Auto) 10.7 H, Eos % (Auto) 0.6, Baso % (Auto) 1.9, Neut # (Auto) 9.4 H, Lymph # (Auto) 4.0, [place] # (Auto) 1.6 H, Eos # (Auto) 0.1, Baso # (Auto) 0.3 H, Sodium 138, Potassium 3.8, Chloride 107, Carbon Dioxide 20 L, Anion Gap 14.8, BUN 6 L, Creatinine 0.60, Estimated Creat Clear 172, Estimated GFR 109, Est GFR ( Amer) 131, Glucose 197 H, Calcium 8.1 L, Vancomycin Trough 12.4 H 12/24/23 08:47: Vancomycin Peak 38.6 I & O for Labs for Last 24 Hours: Intake & Output 12/21/23 12/22/23 12/23/23 12/24/23 23:59 23:59 23:59 23:59 Intake Total / 810 1891 Output Total 0 / 0 0 / 0 Balance 0 1891 Weight 198 lb 9 oz 200 lb 11.2 oz Constitutional: Present moderate distress Head: Present normocephalic and atraumatic ENT: Present normal exam, normal oropharynx and mucous membranes moist Neck: Present normal inspection and full ROM Respiratory: Present able to speak in complete sentences; Absent prolonged expiratory phase, respiratory distress, wheezes or diminished air movement Cardiac: Present S1/S2, Tachycardia and radial pulses present GI: Present soft and distention; Absent tenderness or guarding Rectal (female): Present deferred (female): Present deferred Skin: Present intact; Absent cyanosis or jaundice Neuro: Present alert, awake and oriented x 3 Extremities: Present normal inspection; Absent clubbing or cyanosis Psychiatric: Present normal affect and cooperative Meds Home Medications and Allergies Home Medications ?Medication ?Instructions ?Recorded ?Confirmed ?Type bisoprolol fumarate 10 mg tablet 10 mg PO DAILY 10/02/20 12/23/23 History fenofibrate 160 mg tablet 160 mg PO DAILY 01/16/22 12/23/23 History cholecalciferol (vitamin D3) 125 125 mcg PO DAILY 02/08/23 12/23/23 History mcg (5,000 unit) tablet (Vitamin D3) ferrous sulfate 325 mg (65 mg 325 mg PO Q48H 02/08/23 12/23/23 History iron) tablet (FeroSul) gabapentin 300 mg capsule 300 mg PO BIDP PRN Neuropathic Pain 03/05/23 12/23/23 History rosuvastatin 20 mg tablet 20 mg PO DAILY 06/06/23 12/23/23 History albuterol sulfate 90 mcg/actuation 2 puff inhalation Q4HP PRN 12/19/23 12/23/23 History aerosol inhaler Shortness Of Breath desvenlafaxine succinate 100 mg 100 mg PO DAILY 12/19/23 12/23/23 History tablet,extended release 24 hr (Pristiq) dextromethorphan IR 45 1 tab PO BID 12/19/23 12/23/23 History mg-bupropion ER 105 mg biphasic tablet (Auvelity) diazepam 10 mg tablet (Valium) 10 mg PO BIDP PRN anxiety 12/19/23 12/23/23 History insulin glargine U-300 conc 300 10 unit SQ HS 12/19/23 12/23/23 History unit/mL (3 mL) subcutaneous pen (Toujeo Max U-300 SoloStar) insulin lispro 100 unit/mL 10 unit SQ TID 12/19/23 12/23/23 History subcutaneous pen (Humalog KwikPen (U-100) Insulin) tirzepatide 10 mg/0.5 mL 10 mg SQ WEEKLY 12/19/23 12/23/23 History subcutaneous pen injector (Ashley) triamterene 37.5 1 tab PO DAILYP PRN Edema 12/19/23 12/23/23 History mg-hydrochlorothiazide 25 mg tablet azithromycin 500 mg tablet 500 mg PO DAILY 2 days #2 tabs 12/21/23 12/23/23 Rx cefdinir 300 mg capsule 300 mg PO BID #15 caps 12/21/23 12/23/23 Rx New Prescriptions to Start Prescriptions: Allergies Allergy/AdvReac Type Severity Reaction Status Date / Time No Known Allergies Allergy Verified 11/05/23 16:07 Results Laboratory Findings 12/24/23 05:40 12/24/23 05:40 PT/INR, D-dimer PT 10.6 seconds (10.1-12.5) 12/23/23 11:55 INR 0.94 (0.9-1.1) 12/23/23 11:55 Abnormal lab findings: Abnormal Labs 12/23/23 12/23/23 12/24/23 11:55 20:43 05:35 WBC 19.3 H D MCV MCHC Plt Count 483 H [place] % (Auto) Neut # (Auto) 13.9 H [place] # (Auto) 1.7 H Baso # (Auto) 0.3 H Neutrophils % (Manual) 78 H Monocytes % (Manual) 1 L APTT 32.4 H VBG pCO2 34.5 L VBG pO2 41.2 H VBG HCO3 18.1 L VBG Total CO2 19.2 L VBG O2 Saturation 78.4 H VBG Base Excess -7.7 L Sodium 135 L Potassium 3.4 L Carbon Dioxide 19 L Anion Gap 19.4 H BUN 6 L D Glucose 224 H POC Glucose 225 H 215 H Calcium Globulin 3.3 H Vancomycin Trough 12/24/23 05:40 WBC 15.4 H MCV 100.1 H MCHC 30.4 L Plt Count 530 H [place] % (Auto) 10.7 H Neut # (Auto) 9.4 H [place] # (Auto) 1.6 H Baso # (Auto) 0.3 H Neutrophils % (Manual) Monocytes % (Manual) APTT VBG pCO2 VBG pO2 VBG HCO3 VBG Total CO2 VBG O2 Saturation VBG Base Excess Sodium Potassium Carbon Dioxide 20 L Anion Gap BUN 6 L Glucose 197 H POC Glucose Calcium 8.1 L Globulin Vancomycin Trough 12.4 H Assessment and Plan *Assessment and plan (1) Pneumonia: Status: Acute Category: Medical Code(s): J18.9 - Pneumonia, unspecified organism Plan Ms. Garcia is a 43-year-old female with reported history of diabetes mellitus hypertension asplenia and asthma presented here with worsening distress and pulmonary was called for further evaluation and management. Patient recently admitted to the hospital complaining of febrile episodes and worsening respiratory send the Tmax of 101.8 admitted to the hospital and was discharged home on ceftriaxone azithromycin on 12/21/2023. Chest x-ray from previous admission showed bilateral lower lobe infiltrates, right greater than left along with right upper lobe infiltrates concerning for multilobar pneumonia. CT chest on this admission no dense consolidative changes noted. Right upper lobe groundglass opacities noted. Neutrophilic prominent leukocytosis of admission, worsening from her recent admission. Febrile with a Tmax of 102.6 on this admission. She was initiated on vancomycin and Zosyn on this admission. Blood and sputum cultures from this admission pending. No growth on her recent admission. Normal respiratory breann. Nasal MRSA PCR pending. COVID-19 and flu PCR panel negative. On examination patient does not appear to be in any respiratory distress. On room air saturating 95%. Admits cough with scant productive phlegm. Denies any worsening respiratory distress. Plan: Follow the urine strep Legionella antigen Follow repeat nasal MRSA PCR Continue current antibiotics including vancomycin and Zosyn and azithromycin. Follow-up with final cultures No need for steroids from pulmonary standpoint Consider peripheral smear and echocardiogram # Thank you for involving pulmonary in this patient care. Will continue to follow.
[2023-12-24 11:21] LABS: POC Glucose,Bedside 188 (70-110)
[2023-12-24 11:51] LABS: Lymphocytes % 39 % (10-50); Monocytes % 4 % (2-9); Neutrophils % 57 % (42-76); Nucleated Red Blood Cells 4; Total Cells Counted 100
[2023-12-24 11:52] LABS: Macrocytosis 1+; Platelet Estimate Moderate Increase
[2023-12-24] MEDS: SODIUM CHLORIDE 3% 15ML NEB 3 ML IH (14:03)
[2023-12-24] MEDS: LIDOCAINE 2% VISCOUS SOL 15ML UDC 10 ML PO (14:59)
--- NOTE | 2023-12-24 14:59 | EXP.ENTCONS ---
History of Present Illness *Admission Date: 12/23/23 *Reason for visit:: Shortness of breath, cough, sore throat, difficulty swallowing, weakness *History of present illness: Patient is a 43-year-old female with past medical history of diabetes mellitus hypertension asplenia asthma who presents to the hospital for worsening overall health. According to patient she was recently discharged from the hospital at that time she was diagnosed with pneumonia and started on antibiotics at discharge. Patient has generalized weakness, fatigue since her time of discharge. Patient also mentions having fevers. Patient also complains of shortness of breath productive cough. Patient was noticed to have low oxygen saturations in the emergency department and was mated for further evaluation. Patient denies chest pain nausea vomiting diarrhea. [facility] Disclaimer: The information contained in this section may have been updated after the patient was seen, as this information can be updated by other users. 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) Diabetes Father Grandfather FHx: mental illness Mother Cancer Grandmother Social History Smoking Status: Unknown if ever smoked second hand exposure: No alcohol intake: never substance use type: denies use current occupational status: employed and other details: she is in the process of getting a job; she is interviewing Travel in the last 8 weeks: None adopted: No caregiver/support person: Yes (she takes care of her grand-daughter) foster care: No household members: spouse housing: house marital status: number of children: 1 number of grandchildren: 1 education level: high school service: No mcc: No 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 current occupational exposures/hazards: No Hx Recent Travel: No sexually active: Yes caffeine: Yes physical activity: none working smoke detector in home: Yes fire extinguisher in home: Yes carbon monox detector in home: No firearms in home: Yes firearms unloaded and locked: Yes do you feel safe at home: Yes victim of physical abuse: No victim of emotional abuse: No victim of sexual abuse: No Review of Systems ENT Ears, Nose, Mouth, and Throat: Reports system reviewed and no additional complaints, except as documented, Reports dry mouth, Reports dysphagia and Reports sore throat *Gastrointestinal Gastrointestinal: Reports dysphagia Meds Home Medications and Allergies Home Medications ?Medication ?Instructions ?Recorded ?Confirmed ?Type bisoprolol fumarate 10 mg tablet 10 mg PO DAILY 10/02/20 12/23/23 History fenofibrate 160 mg tablet 160 mg PO DAILY 01/16/22 12/23/23 History cholecalciferol (vitamin D3) 125 125 mcg PO DAILY 02/08/23 12/23/23 History mcg (5,000 unit) tablet (Vitamin D3) ferrous sulfate 325 mg (65 mg 325 mg PO Q48H 02/08/23 12/23/23 History iron) tablet (FeroSul) gabapentin 300 mg capsule 300 mg PO BIDP PRN Neuropathic Pain 03/05/23 12/23/23 History rosuvastatin 20 mg tablet 20 mg PO DAILY 06/06/23 12/23/23 History albuterol sulfate 90 mcg/actuation 2 puff inhalation Q4HP PRN 12/19/23 12/23/23 History aerosol inhaler Shortness Of Breath desvenlafaxine succinate 100 mg 100 mg PO DAILY 12/19/23 12/23/23 History tablet,extended release 24 hr (Pristiq) dextromethorphan IR 45 1 tab PO BID 12/19/23 12/23/23 History mg-bupropion ER 105 mg biphasic tablet (Auvelity) diazepam 10 mg tablet (Valium) 10 mg PO BIDP PRN anxiety 12/19/23 12/23/23 History insulin glargine U-300 conc 300 10 unit SQ HS 12/19/23 12/23/23 History unit/mL (3 mL) subcutaneous pen (Toujeo Max U-300 SoloStar) insulin lispro 100 unit/mL 10 unit SQ TID 12/19/23 12/23/23 History subcutaneous pen (Humalog KwikPen (U-100) Insulin) tirzepatide 10 mg/0.5 mL 10 mg SQ WEEKLY 12/19/23 12/23/23 History subcutaneous pen injector (Mounjaro) triamterene 37.5 1 tab PO DAILYP PRN Edema 12/19/23 12/23/23 History mg-hydrochlorothiazide 25 mg tablet azithromycin 500 mg tablet 500 mg PO DAILY 2 days #2 tabs 12/21/23 12/23/23 Rx cefdinir 300 mg capsule 300 mg PO BID #15 caps 12/21/23 12/23/23 Rx New Prescriptions to Start Prescriptions: Allergies Allergy/AdvReac Type Severity Reaction Status Date / Time No Known Allergies Allergy Verified 11/05/23 16:07 Results Labs 12/24/23 05:40 12/24/23 05:40 Labs: Abnormal lab results 12/23/23 12/24/23 12/24/23 Range/Units 20:43 05:35 05:40 WBC 15.4 H (4.8-10.8) K/mm3 MCV 100.1 H (81-99) fl MCHC 30.4 L (31.8-35.4) g/dL Plt Count 530 H (142-424) K/mm3 [place] % (Auto) 10.7 H (1.7-9.3) % Neut # (Auto) 9.4 H (1.8-7.8) K/mm3 [place] # (Auto) 1.6 H (0.1-1.0) K/mm3 Baso # (Auto) 0.3 H (0-0.2) K/mm3 Carbon Dioxide 20 L (22.0-30.0) mmol/L BUN 6 L (7-17) mg/dl Glucose 197 H (74-100) mg/dl POC Glucose 225 H 215 H (70-110) Calcium 8.1 L (8.4-10.2) mg/dl Vancomycin Trough 12.4 H (5.0-10.0) ug/mL 12/24/23 Range/Units 11:14 WBC (4.8-10.8) K/mm3 MCV (81-99) fl MCHC (31.8-35.4) g/dL Plt Count (142-424) K/mm3 [place] % (Auto) (1.7-9.3) % Neut # (Auto) (1.8-7.8) K/mm3 [place] # (Auto) (0.1-1.0) K/mm3 Baso # (Auto) (0-0.2) K/mm3 Carbon Dioxide (22.0-30.0) mmol/L BUN (7-17) mg/dl Glucose (74-100) mg/dl POC Glucose 188 H (70-110) Calcium (8.4-10.2) mg/dl Vancomycin Trough (5.0-10.0) ug/mL H & H 12/23/23 12/24/23 Range/Units 11:55 05:40 Hgb 14.6 14.0 (12.2-16.2) g/dL Hct 45.3 45.9 (37.0-47.0) % Coagulation 12/23/23 Range/Units 11:55 INR 0.94 (0.9-1.1) All other labs normal. Assessment and Plan *Assessment and plan (1) Tonsillitis: Status: Acute Category: Medical Code(s): J03.90 - Acute tonsillitis, unspecified (2) Enlarged tonsils: Problem Comment: 4+ bilateral Status: Acute Category: Medical Code(s): J35.1 - Hypertrophy of tonsils Plan 1400-This patient was essentially admitted for several complaints such as fatigue, cough, difficulty swallowing, as well as sore throat. Patient reports she was diagnosed with streptococcal tonsillitis approximately 5 days prior to this date. Patient has been on several antibiotics IV as well as by mouth upon discharge from a short hospital stay. When she was diagnosed last week and admitted into the hospital she did not have the difficulty swallowing or the severe sore throat. On examination the bilateral palate teen tonsils are severely enlarged and inflamed at 4+ bilaterally, nearly touching the uvula. The inflammation is bilateral and not asymmetrical, which would make it more unlikely to be a peritonsillar abscess. This is more highly likely a severe case of tonsillopharyngitis. I did discuss the case with Dr. Appiah and currently on waiting for results of CT soft tissue neck. Radiology has been notified. Of note-patient was negative on 12/15/2023 for streptococcal tonsillitis per hospital diagnostics. Additionally, while during the bedside exam I did speak with [facility] MD hospitalist who agrees that steroids would beneficial and would start these for patient to assist with the tonsillopharyngitis. 1616-CT soft tissue neck resulted-IMPRESSION: Extensive cervical and submandibular adenopathy is present, more numerous than would be normally expected. There is also right supraclavicular adenopathy as well. The differential diagnosis is extensive, however either an infectious etiology or neoplasm would be the most likely etiologies. No evidence of a peritonsillar mass or fluid collection to suggest an abscess is seen. Once again discussed these findings with Dr. Appiah. No peritonsillar abscess findings at this time. We would however be happy to see patient in the near future if problem persist or becomes chronic.
[2023-12-24] MEDS: DEXAMETHASONE 4MG/ML 5ML MDV 10 MG IV ×2 (15:33→20:25)
[2023-12-24 15:51] LABS: POC Glucose,Bedside 154 (70-110)
--- NOTE | 2023-12-24 17:36 | PC.NURSE ---
Pt A&Ox4. Pt has c/o throat pain multiple times this shift and was medicated per JUN. Pt was able to be weaned off 2L NC and has tolerated RA most of this shift. Pt has refused incentive spirometer this shift because it causes her pain. Pt has only been able to tolerate eating ice cream and drinking water, pt is unable to swallow solids because of pain in her throat. Pt given PO meds in ice cream. Pt has only been given sliding scale humalog today and scheduled 10 units of humalog were held per MD due to FSBS and not tolerating meals. Pt ambulating independently to and from restroom and was assisted with a shower this shift. Pt resting in bed comfortably with no complaints at this time.
--- NOTE | 2023-12-24 19:03 | PC.NURSE ---
Pt still unable to cough up sputum to collect. Specimen cup at bedside in case pt is able.
[2023-12-24 20:07] LABS: POC Glucose,Bedside 316 (70-110)
[2023-12-24] MEDS: INSULIN GLARGINE 100 UNITS/ML 3ML FLEXPEN 10 UNIT SQ (20:22)
[2023-12-24] MEDS: diazePAM 10MG TABLET 10 MG PO (22:04)
[2023-12-25] MEDS: PIPERACILLIN/TAZO 4.5 GM in 0.9 % SODIUM CHLORIDE 100 ML IV (03:27)
[2023-12-25] MEDS: 0.9 % SODIUM CHLORIDE 1000ML 1,000 ML 75 ML IV (03:27)
[2023-12-25] MEDS: VANCOMYCIN/WATER FOR INJ (PEG) 1.75 GM/350 ML PIGGYBACK IV ×2 (03:28→12:12)
[2023-12-25] MEDS: HEPARIN SODIUM 5,000 UNIT/ML VIAL 5000 UNIT SQ ×3 (03:30→20:55)
[2023-12-25 04:00] VITALS: BP 127/74; PULSE 75; RESP 16; TEMP 37.2; O2SAT 93; BMI 32.5
[2023-12-25] MEDS: humaLOG 100 UNITS/ML 10ML VIAL (SSI) SQ ×3 (06:04→21:41)
[2023-12-25] MEDS: humaLOG 100 UNITS/ML 10ML VIAL (SSI) 10 UNIT SQ ×2 (06:05→11:33)
[2023-12-25] MEDS: ACETAMINOPHEN 325MG/10.15ML UDC 650 MG PO (06:08)
[2023-12-25 06:12] LABS: POC Glucose,Bedside 203 (70-110)
[2023-12-25 06:27] LABS: Basophils # 0.1 K/mm3 (0-0.2); Basophils % 1.2 % (0.1-2.0); Eosinophils % 0.1 % (0.1-12.0); Hematocrit 44.9 % (37.0-47.0); Hemoglobin 14.2 g/dL (12.2-16.2); Lymphocytes # 2.4 K/mm3 (0.7-4.5); Lymphocytes % 23.2 % (10-50); Mean Corpuscular HGB Conc 31.7 g/dL (31.8-35.4); Mean Corpuscular Hemoglobin 30.3 pg (27.0-31.2); Mean Corpuscular Volume 95.7 fl (81-99); Mean Platelet Volume 9.7 fl (7.4-10.4); Monocytes # 0.9 K/mm3 (0.1-1.0); Monocytes % 8.4 % (1.7-9.3); Neutrophils # 6.8 K/mm3 (1.8-7.8); Platelet Count 575 K/mm3 (142-424); Red Blood Count 4.69 M/mm3 (4.20-5.40); Red Cell Distribution Width 14.8 % (11.5-17.5); White Blood Count 10.1 K/mm3 (4.8-10.8)
[2023-12-25 07:25] LABS: Chloride 111 mmol/L (98-107); Potassium 4.1 mmoL/L (3.5-5.1); Sodium 139 mmol/L (136-145)
[2023-12-25 07:28] LABS: Anion Gap 14.1 mEq/L (5-15); Blood Urea Nitrogen 6 mg/dl (7-17); Calcium 8.6 mg/dl (8.4-10.2); Carbon Dioxide 18 mmol/L (22.0-30.0); Creatinine Clearance Estimated 260 mL/min (50-200); Estimated Glomerular Filt Rate 173 ml/min (>60); GFR (African American) 210 ML/MIN (>60); Glucose 218 mg/dl (74-100)
[2023-12-25 07:29] LABS: Magnesium 2.3 mg/dl (1.6-2.3)
[2023-12-25 07:35] LABS: C-Reactive Protein 117.9 mg/L (0-4)
[2023-12-25 08:00] VITALS: BP 119/61; PULSE 71; RESP 20; TEMP 36.7; O2SAT 95
[2023-12-25 08:31] LABS: Procalcitonin 0.097 ng/mL (0.0-2.0)
[2023-12-25] MEDS: LEVOFLOXACIN/D5W 750 MG/150 ML 750 MG/150 ML PIGGYBACK 100 MG IV (08:38)
[2023-12-25] MEDS: FENOFIBRATE 134MG CAPSULE 134 MG PO (08:38)
[2023-12-25] MEDS: CHOLECALCIFEROL 1,000 UNITS (25MCG) TABLET 50 MCG PO (08:38)
[2023-12-25] MEDS: BISOPROLOL 5MG TABLET 10 MG PO (08:38)
[2023-12-25] MEDS: NYSTATIN SUSP 500,000 UNITS/5ML UDC 500000 UNIT PO ×4 (08:39→20:50)
--- NOTE | 2023-12-25 09:33 | P.PN_ITS ---
Subjective *Date: 12/25/23 *Time: 11:09 Interval history: No acute respiratory events overnight. Pulmonology Exam Inpatient Vital signs and Labs for Last 24 Hours: Temp Pulse Resp BP Pulse Ox O2 Del Method O2 Flow Rate 98.1 F 71 20 119/61 95 Room Air 2 12/25/23 08:00 12/25/23 08:00 12/25/23 08:00 12/25/23 08:00 12/25/23 08:00 12/25/23 09:00 12/24/23 12:00 Laboratory Results - last 24 hr 12/24/23 05:40: Total Counted 100, Neutrophils % (Manual) 57, Lymphocytes % (Manual) 39, Monocytes % (Manual) 4, Nucleated RBCs 4, Platelet Estimate Moderate increase, Macrocytosis 1+ 12/24/23 08:47: Vancomycin Peak 38.6 12/24/23 09:28: Chlamy pneumoniae PCR Not detected, Adenovirus (PCR) Not det ected, B. pertussis DNA (PCR) Not detected, Coronavirus OC43 (PCR) Not detected, Coronavirus HKU1 (PCR) Not detected, Coronavirus 229E (PCR) Not detected, SARS-CoV-2 (PCR) Not detected, Coronavirus NL63 (PCR) Not detected, Human Metapneumovir PCR Not detected, Influenza A (H1) PCR Not detected, Influ A (H1N1/09) PCR Not detected, Influenza A (H3) PCR Not detected, Influenza Type A (PCR) Not detected, Influenza Type B (PCR) Not detected, M. pneumoniae (PCR) Not detected, Parainfluenza 1 (PCR) Not detected, Parainfluenza 2 (PCR) Not detected, Parainfluenza 3 (PCR) Not detected, Parainfluenza 4 (PCR) Not detected, RSV (PCR) Not detected, Entero/Rhino (PCR) Not detected 12/24/23 11:14: POC Glucose 188 H 12/24/23 15:43: POC Glucose 154 H 12/24/23 19:58: POC Glucose 316 H* 12/25/23 06:04: WBC 10.1 D, RBC 4.69, Hgb 14.2, Hct 44.9, MCV 95.7, MCH 30.3, MCHC 31.7 L, RDW 14.8, Plt Count 575 H, MPV 9.7, Neut % (Auto) 67.0, Lymph % (Auto) 23.2, [place] % (Auto) 8.4, Eos % (Auto) 0.1, Baso % (Auto) 1.2, Neut # (Auto) 6.8, Lymph # (Auto) 2.4, [place] # (Auto) 0.9, Eos # (Auto) 0.0, Baso # (Auto) 0.1, Sodium 139, Potassium 4.1, Chloride 111 H, Carbon Dioxide 18 L, Anion Gap 14.1, BUN 6 L, Creatinine 0.40 L D, Estimated Creat Clear 260, Estimated GFR 173, Est GFR ( Amer) 210 D, Glucose 218 H, POC Glucose 203 H, Calcium 8.6, Magnesium 2.3, C-Reactive Protein 117.9 H, Procalcitonin 0.097 Temp Pulse Resp BP Pulse Ox O2 Del Method O2 Flow Rate 98.2 F 110 H 18 143/73 H 90 L Room Air 2 12/24/23 08:00 12/24/23 08:00 12/24/23 08:00 12/24/23 08:00 12/24/23 09:52 12/24/23 09:52 12/24/23 08:00 Laboratory Results - last 24 hr 12/23/23 08:35: Procalcitonin 0.113 12/23/23 11:55: WBC 19.3 H D, RBC 4.74, Hgb 14.6, Hct 45.3, MCV 95.4, MCH 30.8, MCHC 32.3, RDW 14.6, Plt Count 483 H, MPV 8.8, Neut % (Auto) 72.1, Lymph % (Auto) 17.0, [place] % (Auto) 9.0, Eos % (Auto) 0.4, Baso % (Auto) 1.6, Neut # (Auto) 13.9 H, Lymph # (Auto) 3.3, [place] # (Auto) 1.7 H, Eos # (Auto) 0.1, Baso # (Auto) 0.3 H, Total Counted 100, Neutrophils % (Manual) 78 H, Lymphocytes % (Manual) 20, Monocytes % (Manual) 1 L, Eosinophils % (Manual) 1, Nucleated RBCs 2, Platelet Estimate Slight increase, RBC Morphology Normal, PT 10.6, INR 0.94, APTT 32.4 H, VBG pH 7.34, VBG pCO2 34.5 L, VBG pO2 41.2 H, VBG HCO3 18.1 L, VBG Total CO2 19.2 L, VBG O2 Saturation 78.4 H, VBG Base Excess -7.7 L, VBG Lactic Acid 1.5, Sodium 135 L, Potassium 3.4 L, Chloride 100, Carbon Dioxide 19 L, Anion Gap 19.4 H, BUN 6 L D, Creatinine 0.60 D, Estimated Creat Clear 169, Estimated GFR 109, Est GFR ( Amer) 131 D, Glucose 224 H, Calcium 8.5, Total Bilirubin 0.6, AST 33, ALT 23, Alkaline Phosphatase 105, Troponin I < 0.01, Total Protein 7.2, Albumin 3.9, Globulin 3.3 H, Albumin/Globulin Ratio 1.2 12/23/23 12:06: SARS-CoV-2 (PCR) Not detected, Influenza A Untype (PCR) Not detected, Influenza Type B (PCR) Not detected 12/23/23 15:15: Troponin I < 0.01 12/23/23 17:53: Troponin I < 0.01 12/23/23 20:43: POC Glucose 225 H 12/24/23 05:35: POC Glucose 215 H 12/24/23 05:40: WBC 15.4 H, RBC 4.59, Hgb 14.0, Hct 45.9, MCV 100.1 H, MCH 30.4, MCHC 30.4 L, RDW 14.4, Plt Count 530 H, MPV 9.8, Neut % (Auto) 60.9, Lymph % (Auto) 25.9, [place] % (Auto) 10.7 H, Eos % (Auto) 0.6, Baso % (Auto) 1.9, Neut # (Auto) 9.4 H, Lymph # (Auto) 4.0, [place] # (Auto) 1.6 H, Eos # (Auto) 0.1, Baso # (Auto) 0.3 H, Sodium 138, Potassium 3.8, Chloride 107, Carbon Dioxide 20 L, Anion Gap 14.8, BUN 6 L, Creatinine 0.60, Estimated Creat Clear 172, Estimated GFR 109, Est GFR ( Amer) 131, Glucose 197 H, Calcium 8.1 L, Vancomycin Trough 12.4 H 12/24/23 08:47: Vancomycin Peak 38.6 I & O for Labs for Last 24 Hours: Intake & Output 12/22/23 12/23/23 12/24/23 12/25/23 23:59 23:59 23:59 23:59 Intake Total 360 / 810 2252 / 3152 2166 / 2166 Output Total 0 / 0 1 / 1 0 / 0 Balance 360 / 810 2251 / 3151 2166 / 2166 Weight 198 lb 9 oz 200 lb 11.2 oz 202 lb 8 oz Intake & Output 12/21/23 12/22/23 12/23/23 12/24/23 23:59 23:59 23:59 23:59 Intake Total 360 / 810 1892 / 1892 Output Total 0 / 0 0 / 0 Balance 360 / 810 1892 / 1892 Weight 198 lb 9 oz 200 lb 11.2 oz Microbiology Reports for the Last 24 Hours: Microbiology 12/23/23 11:55 Blood Blood Culture - Preliminary NO GROWTH AFTER 24 HOURS 12/23/23 11:55 Blood Blood Culture - Preliminary NO GROWTH AFTER 24 HOURS Constitutional: Present moderate distress Head: Present normocephalic and atraumatic ENT: Present normal exam, normal oropharynx and mucous membranes moist Neck: Present normal inspection and full ROM Respiratory: Present able to speak in complete sentences; Absent prolonged expiratory phase, respiratory distress, wheezes or diminished air movement Cardiac: Present S1/S2, Tachycardia and radial pulses present GI: Present soft and distention; Absent tenderness or guarding Rectal (female): Present deferred (female): Present deferred Skin: Present intact; Absent cyanosis or jaundice Neuro: Present alert, awake and oriented x 3 Extremities: Present normal inspection; Absent clubbing or cyanosis Psychiatric: Present normal affect and cooperative Assessment and Plan *Assessment and plan (1) Pneumonia: Status: Acute Category: Medical Code(s): J18.9 - Pneumonia, unspecified organism Plan Ms. Garcia is a 43-year-old female with reported history of diabetes mellitus hypertension asplenia and asthma presented here with worsening distress and pulmonary was called for further evaluation and management. Patient recently a dmitted to the hospital complaining of febrile episodes and worsening respiratory send the Tmax of 101.8 admitted to the hospital and was discharged home on ceftriaxone azithromycin on 12/21/2023. Chest x-ray from previous admission showed bilateral lower lobe infiltrates, right greater than left along with right upper lobe infiltrates concerning for multilobar pneumonia. CT chest on this admission no dense consolidative changes noted. Right upper lobe groundglass opacities noted. Neutrophilic prominent leukocytosis of admission, worsening from her recent admission. Febrile with a Tmax of 102.6 on this admission. She was initiated on vancomycin and Zosyn on this admission. Blood and sputum cultures from this admission pending. No growth on her recent admission. Normal respiratory [place] a. Nasal MRSA PCR pending. COVID-19 and flu PCR panel negative. On examination patient does not appear to be in any respiratory distress. On room air saturating 95%. Admits cough with scant productive phlegm. Denies any worsening respiratory distress. CT neck concerning for extensive cervical adenopathy. Also noted to have a right subcapital femoral 3. No evidence of peritonsillar abscess. Repeat blood cultures no growth 24 hours. Interval update: No acute respiratory vents overnight. Continue to remain on room air. ENT following for the noted cervical lymphadenopathy scheduled for biopsy as an outpatient basis. Concerning oral lesion, currently being treated for possible herpes infection per primary team. Swab pending. Plan: Antibiotics can be weaned to levofloxacin from pulmonary standpoint to complete a total of 7-day course. Follow the urine strep Legionella antigen Follow repeat nasal MRSA PCR No need for steroids from pulmonary standpoint F/U peripheral smear and echocardiogram # Thank you for involving pulmonary in this patient care. Will continue to follow.
[2023-12-25] MEDS: SODIUM CHLORIDE 0.9% IV ×2 (10:38→17:57)
[2023-12-25] MEDS: ACYCLOVIR SODIUM IV ×2 (10:38→17:57)
[2023-12-25 10:51] LABS: POC Glucose,Bedside 239 (70-110)
[2023-12-25 11:17] VITALS: BMI 32.5
[2023-12-25 12:00] VITALS: BP 126/88; PULSE 82; RESP 18; TEMP 36.7; O2SAT 97
--- NOTE | 2023-12-25 12:55 | P.PN_ITS ---
Subjective *Date: 12/25/23 *Time: 13:24 Interval history: Patient is a made afebrile. Still has sore throat. Tolerating p.o. meds and liquids. No nausea or vomiting. No shortness of breath or chest pain. States she still feels bad. Medical Exam Vital signs and Labs for Last 24 Hours: Vital Signs Temp Pulse Pulse Resp BP Pulse Ox O2 Del Method 12/25/23 12:22 Room Air 12/25/23 12:00 98.0 F 82 18 126/88 97 Room Air 12/25/23 11:00 Room Air 12/25/23 09:00 Room Air 12/25/23 08:00 98.1 F 71 20 119/61 95 Room Air 12/25/23 08:00 Room Air 12/25/23 06:52 Room Air 12/25/23 05:00 Room Air 12/25/23 04:00 98.9 F 75 16 127/74 93 L Room Air 12/25/23 03:00 Room Air 12/25/23 01:00 Room Air 12/24/23 23:57 98.8 F 64 17 122/68 96 12/24/23 23:00 Room Air 12/24/23 20:36 Room Air 12/24/23 20:00 Room Air 12/24/23 20:00 99.3 F 96 H 16 127/74 93 L 12/24/23 19:00 Room Air 12/24/23 17:00 Room Air 12/24/23 16:00 98.0 F 85 18 129/85 95 Room Air 12/24/23 15:00 Room Air 12/24/23 14:04 77 18 12/24/23 13:00 Room Air Intake and Output 12/24/23 12/25/23 12/25/23 23:59 07:59 15:59 Intake Total 120 / 3152 2045 120 / 216 Output Total 0 / 1 0 / 0 0 / 0 Balance 120 / 3151 2045 120 2165 Intake: Intake, Oral Amount 120 / 360 120 / 120 Intake, Total IV Amount 2045 0.9 % Sodium Chloride 1000ML 1, 1146 / 1146 000 ml @ 75 mls/hr IV .[id number] [facility] Rx#:[id number] Piperacillin/Tazo 4.5 gm In 0.9 200 / 200 % Sodium Chloride 100 ml @ 200 mls/hr IV Q6H [facility] Rx#:[id number] Vancomycin/Water For Inj (Peg) 700 / 700 1.75 gm In 350 ml @ 175 mls/hr IV ONCE ONE Rx#:[id number] Output: Output, Urine Amount 0 / 1 0 / 0 0 / 0 Other: Number of Unmeasured Voids 1 1 1 Weight 91.852 kg 91.8 kg Patient Weight 12/25/23 23:59 Weight 91.8 kg Laboratory Results - last 24 hr 12/24/23 15:43: POC Glucose 154 H 12/24/23 19:58: POC Glucose 316 H* 12/25/23 06:04: WBC 10.1 D, RBC 4.69, Hgb 14.2, Hct 44.9, MCV 95.7, MCH 30.3, MCHC 31.7 L, RDW 14.8, Plt Count 575 H, MPV 9.7, Neut % (Auto) 67.0, Lymph % (Auto) 23.2, [place] % (Auto) 8.4, Eos % (Auto) 0.1, Baso % (Auto) 1.2, Neut # (Auto) 6.8, Lymph # (Auto) 2.4, [place] # (Auto) 0.9, Eos # (Auto) 0.0, Baso # (Auto) 0.1, Sodium 139, Potassium 4.1, Chloride 111 H, Carbon Dioxide 18 L, Anion Gap 14.1, BUN 6 L, Creatinine 0.40 L D, Estimated Creat Clear 260, Estimated GFR 173, Est GFR ( Amer) 210 D, Glucose 218 H, POC Glucose 203 H, Calcium 8.6, Magnesium 2.3, C-Reactive Protein 117.9 H, Procalcitonin 0.097 12/25/23 10:43: POC Glucose 239 H I & O for Labs for Last 24 Hours: Intake & Output 12/22/23 12/23/23 12/24/23 12/25/23 23:59 23:59 23:59 23:59 Intake Total 360 / 810 2252 / 3152 2166 / 2166 Output Total 0 / 0 1 / 1 0 / 0 Balance 360 / 810 2251 / 3151 216 / 2166 Weight 90.066 kg 91.036 kg 91.8 kg Microbiology Reports for the Last 24 Hours: Microbiology 12/23/23 11:55 Blood Blood Culture - Preliminary NO GROWTH AFTER 48 HOURS 12/23/23 11:55 Blood Blood Culture - Preliminary NO GROWTH AFTER 48 HOURS 12/23/23 16:30 Nose MRSA Culture - Final Negative Constitutional: Present mild distress, obese and cooperative Head: Present atraumatic Comment:: Significant exudate on tonsils bilaterally, cold sore right bottom lip Neck: Present tenderness and lymphadenopathy Respiratory: Present normal respiratory effort; Absent rhonchi, wheezes or crackles Cardiac: Present Reg Rate and Rhythm GI: Present soft and normal bowel sounds; Absent distention or tenderness Extremities: Present normal inspection and full ROM; Absent edema Skin: Present intact; Absent erythema Neuro: Present Grossly Intact, alert, awake, oriented x 3 and moves all extremities Assessment and Plan *Assessment and plan (1) Multifocal pneumonia: Status: Acute Category: Medical Code(s): J18.9 - Pneumonia, unspecified organism (2) Hypoxic respiratory failure: Status: Acute Category: Medical Code(s): J96.91 - Respiratory failure, unspecified with hypoxia (3) Asplenia: Status: Acute Category: Medical Code(s): Q89.01 - Asplenia (congenital) (4) Severe sepsis: Status: Acute Category: Medical Code(s): A41.9 - Sepsis, unspecified organism; R65.20 - Severe sepsis without septic shock (5) Strep throat: Status: Acute Category: Medical Code(s): J02.0 - Streptococcal pharyngitis (6) Community acquired pneumonia: Status: Acute Category: Medical Code(s): J18.9 - Pneumonia, unspecified organism (7) Upper respiratory infection: Status: Acute Qualifiers: URI type: unspecified viral URI Qualified Code(s): J06.9 - Acute upper respiratory infection, unspecified Category: Medical Code(s): J06.9 - Acute upper respiratory infection, unspecified Plan 43-year-old female with past medical history of hypertension, diabetes, asplenia who presents with fevers, shortness of breath, malaise, new oxygen requirement. Patient seen PCP 12/16, diagnosed with strep throat, and started on p.o. doxycycline and IM Rocephin. Patient admitted by Dr. Harris 12/18 till 12/20 treated for pneumonia with IV antibiotics. Patient discharged on p.o. antibiotics(10 days PO cefdinir, 3 days PO azithromycin). Patient represented to emergency room for hospital admission 12/23/2023 complaining of hoarseness, SOB, weakness. Patient being treated for community-acquired pneumonia and possible peritonsillar abscess. ENT and pulmonology consulted and assisting with care. Continues to require inpatient management. Problems addressed as follows: Healthcare associated pneumonia, failed outpatient management Asplenia -Patient has history of asplenia for over 20 years. Antibiotics adjusted today, continue vancomycin IV. Broaden to levofloxacin 750 mg daily for better covera ge of encapsulated bacteria -Has developed cold sore on right lower lip, concern for viral component to her pharyngitis/tonsillitis. Initiated on acyclovir IV - HSV swab pending. [place] acute antibody test pending. -Inflammatory markers elevated with CRP 117. Pro-Anthony normalized. Repeat CBC, CMP, magnesium, CRP ordered for the morning. White count normal at 10.1. - CT chest from 12/22 shows right upper lobe infiltrate similar to admission x- ray chest 12/18. -CT neck obtained, significant lymph nodes but no abscess. ENT consulted and continues to assist with care. Discussed case today, recommend mono eval as above. Possible peritonsillar abscess: Diabetes: Morning glucose 218. [id number] remains elevated in the 200 range. Continue fingersticks ACHS, sliding scale insulin ordered. Increase insulin glargine to 20 units nightly Hypertension: Continue home management and as needed IV hydralazine if needed PPx: Lovenox subcutaneous CODE STATUS full FEN: Diabetic diet
[2023-12-25 14:13] LABS: Monoscreen (Rapid) Negative (Negative)
[2023-12-25 16:00] VITALS: BP 138/84; PULSE 82; RESP 18; TEMP 36.4; O2SAT 98
[2023-12-25 16:35] LABS: POC Glucose,Bedside 143 (70-110)
--- NOTE | 2023-12-25 18:06 | PC.NURSE ---
Pt able to take PO meds whole with water today and has been only eating ice cream and soup off of meal trays. Pt ambulating independently to and from bathroom. Pt has not required any pain medication this shift and has been afebrile. Upon assessment this morning pt has had a cold sore pop up on right side of mouth. Pt has required no O2 this shift. Pt states she is still feeling bad but better than yesterday. Pt was assisted with shower this evening and is now resting comfortably in bed with no complaints at this time.
[2023-12-25 19:39] VITALS: BP 144/69; PULSE 85; RESP 18; TEMP 36.7; O2SAT 98
[2023-12-25 20:00] VITALS: PULSE 85; RESP 18; O2SAT 98
--- NOTE | 2023-12-25 20:00 | CA_ITS ---
APPROVED REPORT EXAM: Comprehensive 2D, Doppler, and color-flow Echocardiogram [employer] Supervisor: Argenis Saldana CRT Ht: 5 ft 6 in Wt: 200lbs BSA: 2.00 BP: 138/88 mmHg Indications: sepsis, strept tonsillitis, HTN, DM, SOB, pneumonia, spleenectomy 2D Dimensions LA Volume 34.80 mL LA Volume Index 17.00 mL/m2 (M/F) 16-34 M-Mode Dimensions RVDd 2.75 cm (0.9-2.6) LA Diam 2.98 cm (1.9-4.0) LVDd 4.35 cm (3.5-5.7) LVDs 2.96 cm (3.5-5.7) IVSd 1.32 cm (0.6-1.1) PWd 0.89 cm (0.6-1.1) EF (Teich) 60.30% FS 32.00% EDV (Teich) 85.40 mL TAPSE 1.65 (<1.7) ESV (Teich) 33.90 mL LV Diastology E Decel Time 190 (160-240 msec) E/A Ratio 1.21 MED A' 11.10 cm/s LAT A' 13.70 cm/s Aortic Valve AO Peak GR. 8.40 mmHg Mitral Valve MV A Velocity 76.0 (40-130 cm/s) E/A Ratio 1.21 Pulmonary Valve PV Peak Velocity 120.0 (50-150 cm/s) Tricuspid Valve TR P. Velocity 181.00 cm/s RAP Estimate 10.00 mmHg RVSP 23.10 mmHg Left Ventricle The left ventricle is normal size. The left ventricular systolic function is normal. The left ventricular ejection fraction is within the normal range. There is increased LV wall thickness. Proximal septal thickening is noted. There is normal LV segmental wall motion. The left ventricular diastolic function is normal. LVEF is 55%. Right Ventricle The right ventricle is mildly dilated. Right ventricle is mild hypokinetic. Atria The left atrium size is normal. The right atrium size is normal. There is no Doppler evidence of interatrial shunt. Aortic Valve The aortic valve opens well. There is no aortic valvular stenosis. No aortic regurgitation is present. Mitral Valve The mitral valve is normal in structure. No evidence of mitral valve stenosis. There is no mitral valve regurgitation noted. Tricuspid Valve The tricuspid valve leaflets are thin and pliable. Trace tricuspid regurgitation. There is insufficient TR jet to estimate RVSP. Pulmonic Valve The pulmonary valve is normal in structure. Trace pulmonic regurgitation. Great Vessels The aortic root is normal in size. The ascending aorta is normal in size. IVC is normal in size and collapses >50% with inspiration. Pericardium Trivial, anterior pericardial effusion is present. No echo indications of tamponade. Other Information Study Quality: Fair Conclusion Normal LV systolic function. Mild RV dilation with mild reduction in RV function. No significant valvular stenosis or regurgitation. Trivial, anterior pericardial effusion. No echo indications of tamponade. Electronically signed by : Ruthy Lange MD 12/25/2023 11:15:11
[2023-12-25] MEDS: INSULIN GLARGINE 100 UNITS/ML 3ML FLEXPEN 20 UNIT SQ (20:51)
[2023-12-26] VITALS (8 sets, daily range): BP systolic 117–148; BP diastolic 48–85; PULSE 85–120; RESP 16–20; TEMP 36.6–37.3; O2SAT 90–98; BMI 32.4
[2023-12-26] MEDS: VANCOMYCIN/WATER FOR INJ (PEG) 1.75 GM/350 ML PIGGYBACK IV ×3 (00:11→20:55)
--- NOTE | 2023-12-26 00:12 | PC.NURSE ---
Addendum entered by Prashant Carter RN 12/26/23 03:04: vanc infiltrated after US IV - contacted pharm, they recommended warm compress. patient currently has no IV access. Original Note: RETIMED VANC R/T LATE DOSE/IV ISSUES
[2023-12-26] MEDS: ACYCLOVIR SODIUM IV ×3 (02:25→17:04)
[2023-12-26] MEDS: SODIUM CHLORIDE 0.9% IV ×3 (02:25→17:04)
--- NOTE | 2023-12-26 03:03 | PC.NURSE ---
Addendum entered by Danni Barrios RN 12/26/23 03:09: Patient is unable to receive the rest of her intravenous acyclovir and normal saline fluid at this time. Original Note: I checked on the patient around 02:50. Patient complained of firm swelling and tenderness in her left upper arm, surrounding her IV. Upon inspection with comparison to her right arm, an acute change was indeed noticed. Patient's IV had infiltrated; her left upper arm IV was removed. Karime was paged at this time; he suggested that the patient should rest and that her access will be addressed in the morning. Warm compress has been applied and arm is elevated.
[2023-12-26] MEDS: HEPARIN SODIUM 5,000 UNIT/ML VIAL 5000 UNIT SQ ×3 (05:00→20:51)
[2023-12-26] MEDS: humaLOG 100 UNITS/ML 10ML VIAL (SSI) SQ ×3 (05:15→20:54)
[2023-12-26 05:24] LABS: POC Glucose,Bedside 179 (70-110)
--- NOTE | 2023-12-26 05:42 | PC.NURSE ---
Addendum entered by Danni Barrios RN 12/26/23 06:15: Scattered bruising was noted this shift along the patient's arms and abdomen. Patient's FSBS at 21:00 this shift was 242; she received 5 units of Lispro insulin per sliding scale, in addition to her Glargine insulin. At 05:00 this morning, her FSBS was 179; she received 2 units of Lispro insulin. Patient did not voice having an active appetite this shift and only had sips of ice water. Original Note: Patient is alert and oriented x4. At this time, the patient was observed to have eyes closed, consistent snoring, even and unlabored respirations, and no apparent distress. Patient appeared to be tearful earlier in the shift due to multiple accounts of failed IV access and pain; patient currently does not have any IV access (see prior note). Patient's infiltration site (left upper arm) was observed this morning; no acute changes were noted thus far. Patient's lung sounds were clear; dry and non-productive coughing was observed from the patient consistently throughout the shift. Patient's bowel sounds were active in all quadrants; patient voiced that she has been having diarrheal episodes. She ambulates to the bathroom independently. She has remained on a continuous pulse ox throughout the night; oxygen saturations have remained at 98%. Patient has complained of a headache earlier this shift. Pain relievers were held per Marisel due to fever suspicions; patient's temperature did not spike this shift. Patient's heart rate was observed to be slightly tachycardic. Patient received intravenous medications per MAR prior to infiltration this shift; further intravenous medications were not given related to failed IV access maintenance and per MD request (see prior note). Patient was educated to elevate affected arm. She declined to take any PO medications due to soreness in her throat. Patient did however take Nystatin suspension PO; patient stated that liquids are better for her to tolerate rather than solids. Cold sore is still present to patient's right lip. Patient's voice remains hoarse and soft-spoken. Patient is resting in bed on her right side at this time. She does not have any further complaints and appears very fatigued. Call light within reach.
[2023-12-26 06:46] LABS: Basophils # 0.3 K/mm3 (0-0.2); Basophils % 2.6 % (0.1-2.0); Eosinophils # 0.1 K/mm3 (0.0-0.4); Eosinophils % 0.6 % (0.1-12.0); Hematocrit 41.1 % (37.0-47.0); Hemoglobin 13.1 g/dL (12.2-16.2); Lymphocytes # 6.2 K/mm3 (0.7-4.5); Lymphocytes % 54.5 % (10-50); Mean Corpuscular Hemoglobin 30.4 pg (27.0-31.2); Mean Corpuscular Volume 95.1 fl (81-99); Monocytes # 1.5 K/mm3 (0.1-1.0); Monocytes % 12.9 % (1.7-9.3); Neutrophils # 3.3 K/mm3 (1.8-7.8); Neutrophils % 29.4 % (37.0-80.0); Platelet Count 653 K/mm3 (142-424); Red Blood Count 4.32 M/mm3 (4.20-5.40); Red Cell Distribution Width 14.7 % (11.5-17.5); White Blood Count 11.4 K/mm3 (4.8-10.8)
[2023-12-26 06:47] LABS: MANUAL DIFFERENTIAL MANUAL DIFFERENTIAL (MANUAL DIFF)
[2023-12-26 07:02] LABS: Chloride 110 mmol/L (98-107); Sodium 139 mmol/L (136-145)
[2023-12-26 07:05] LABS: Blood Urea Nitrogen 4 mg/dl (7-17); Calcium 8.2 mg/dl (8.4-10.2); Creatinine Clearance Estimated 207 mL/min (50-200); Estimated Glomerular Filt Rate 134 ml/min (>60); GFR (African American) 162 ML/MIN (>60); Glucose 173 mg/dl (74-100); Magnesium 1.8 mg/dl (1.6-2.3)
[2023-12-26 07:08] LABS: Potassium 2.6 mmoL/L (3.5-5.1)
--- NOTE | 2023-12-26 07:14 | PC.NURSE ---
Danay from lab called about a critical lab value (Potassium 2.6).
[2023-12-26 07:53] LABS: Hypochromasia 1+; Lymphocytes % 76 % (10-50); Macrocytosis 1+; Monocytes % 3 % (2-9); Neutrophils % 21 % (42-76); Platelet Estimate Moderate Increase; Total Cells Counted 100
[2023-12-26] MEDS: POTASSIUM CHLORIDE 20MEQ/15ML UDC 40 MEQ PO (09:18)
[2023-12-26] MEDS: CHOLECALCIFEROL 1,000 UNITS (25MCG) TABLET 50 MCG PO (09:18)
[2023-12-26] MEDS: NYSTATIN SUSP 500,000 UNITS/5ML UDC 500000 UNIT PO ×4 (09:18→20:55)
[2023-12-26] MEDS: FENOFIBRATE 134MG CAPSULE 134 MG PO (09:18)
[2023-12-26] MEDS: BISOPROLOL 5MG TABLET 10 MG PO (09:19)
--- NOTE | 2023-12-26 09:25 | EXP.PULM.PN ---
Subjective *Date: 12/26/23 *Time: 15:39 Interval history: No acute respiratory vents overnight. Patient complains of worsening sore throat Pulmonology Exam Inpatient Vital signs and Labs for Last 24 Hours: Temp Pulse Resp BP Pulse Ox O2 Del Method O2 Flow Rate 99.2 F 107 H 17 135/67 90 L Room Air 2 12/26/23 08:00 12/26/23 08:00 12/26/23 08:00 12/26/23 08:00 12/26/23 08:00 12/26/23 08:00 12/24/23 12:00 Laboratory Results - last 24 hr 12/25/23 10:43: POC Glucose 239 H 12/25/23 14:00: Monoscreen Negative 12/25/23 16:28: POC Glucose 143 H 12/26/23 05:11: POC Glucose 179 H 12/26/23 06:03: WBC 11.4 H, RBC 4.32, Hgb 13.1, Hct 41.1, MCV 95.1, MCH 30.4, MCHC 32.0, RDW 14.7, Plt Count 653 H, MPV 10.0, Neut % (Auto) 29.4 L, Lymph % (Auto) 54.5 H, [place] % (Auto) 12.9 H, Eos % (Auto) 0.6, Baso % (Auto) 2.6 H, Neut # (Auto) 3.3, Lymph # (Auto) 6.2 H, [place] # (Auto) 1.5 H, Eos # (Auto) 0.1, Baso # (Auto) 0.3 H, Total Counted 100, Neutrophils % (Manual) 21 L, Lymphocytes % (Manual) 76 H, Monocytes % (Manual) 3, Platelet Estimate Moderate increase, Hypochromasia 1+, Macrocytosis 1+, Sodium 139, Potassium 2.6 L* D, Chloride 110 H, Carbon Dioxide 22, BUN 4 L D, Creatinine 0.50 L D, Estimated Creat Clear 207, Estimated GFR 134, Est GFR ( Amer) 162 D, Glucose 173 H D, Calcium 8.2 L, Magnesium 1.8 D, C-Reactive Protein 41.0 H D Temp Pulse Resp BP Pulse Ox O2 Del Method O2 Flow Rate 98.2 F 110 H 18 143/73 H 90 L Room Air 2 12/24/23 08:00 12/24/23 08:00 12/24/23 08:00 12/24/23 08:00 12/24/23 09:52 12/24/23 09:52 12/24/23 08:00 Laboratory Results - last 24 hr 12/23/23 08:35: Procalcitonin 0.113 12/23/23 11:55: WBC 19.3 H D, RBC 4.74, Hgb 14.6, Hct 45.3, MCV 95.4, MCH 30.8, MCHC 32.3, RDW 14.6, Plt Count 483 H, MPV 8.8, Neut % (Auto) 72.1, Lymph % (Auto) 17.0, [place] % (Auto) 9.0, Eos % (Auto) 0.4, Baso % (Auto) 1.6, Neut # (Auto) 13.9 H, Lymph # (Auto) 3.3, [place] # (Auto) 1.7 H, Eos # (Auto) 0.1, Baso # (Auto) 0.3 H, Total Counted 100, Neutrophils % (Manual) 78 H, Lymphocytes % (Manual) 20, Monocytes % (Manual) 1 L, Eosinophils % (Manual) 1, Nucleated RBCs 2, Platelet Estimate Slight increase, RBC Morphology Normal, PT 10.6, INR 0.94, APTT 32.4 H, VBG pH 7.34, VBG pCO2 34.5 L, VBG pO2 41.2 H, VBG HCO3 18.1 L, VBG Total CO2 19.2 L, VBG O2 Saturation 78.4 H, VBG Base Excess -7.7 L, VBG Lactic Acid 1.5, Sodium 135 L, Potassium 3.4 L, Chloride 100, Carbon Dioxide 19 L, Anion Gap 19.4 H, BUN 6 L D, Creatinine 0.60 D, Estimated Creat Clear 169, Estimated GFR 109, Est GFR ( Amer) 131 D, Glucose 224 H, Calcium 8.5, Total Bilirubin 0.6, AST 33, ALT 23, Alkaline Phosphatase 105, Troponin I < 0.01, Total Protein 7.2, Albumin 3.9, Globulin 3.3 H, Albumin/Globulin Ratio 1.2 12/23/23 12:06: SARS-CoV-2 (PCR) Not detected, Influenza A Untype (PCR) Not detected, Influenza Type B (PCR) Not detected 12/23/23 15:15: Troponin I < 0.01 12/23/23 17:53: Troponin I < 0.01 12/23/23 20:43: POC Glucose 225 H 12/24/23 05:35: POC Glucose 215 H 12/24/23 05:40: WBC 15.4 H, RBC 4.59, Hgb 14.0, Hct 45.9, MCV 100.1 H, MCH 30.4, MCHC 30.4 L, RDW 14.4, Plt Count 530 H, MPV 9.8, Neut % (Auto) 60.9, Lymph % (Auto) 25.9, [place] % (Auto) 10.7 H, Eos % (Auto) 0.6, Baso % (Auto) 1.9, Neut # (Auto) 9.4 H, Lymph # (Auto) 4.0, [place] # (Auto) 1.6 H, Eos # (Auto) 0.1, Baso # (Auto) 0.3 H, Sodium 138, Potassium 3.8, Chloride 107, Carbon Dioxide 20 L, Anion Gap 14.8, BUN 6 L, Creatinine 0.60, Estimated Creat Clear 172, Estimated GFR 109, Est GFR ( Amer) 131, Glucose 197 H, Calcium 8.1 L, Vancomycin Trough 12.4 H 12/24/23 08:47: Vancomycin Peak 38.6 I & O for Labs for Last 24 Hours: Intake & Output 12/23/23 12/24/23 12/25/23 12/26/23 23:59 23:59 23:59 23:59 Intake Total 360 / 810 2252 / 3152 3356 / 3777 421 / 421 Output Total 0 / 0 1 / 1 0 / 0 0 / 0 Balance 360 / 810 2251 / 3151 3356 / 3777 421 / 421 Weight 198 lb 9 oz 200 lb 11.2 oz 202 lb 6.15 oz 201 lb 12.8 oz Intake & Output 12/21/23 12/22/23 12/23/23 12/24/23 23:59 23:59 23:59 23:59 Intake Total 360 / 810 1891 Output Total 0 / 0 0 / 0 Balance 810 1892 / 1892 Weight 198 lb 9 oz 200 lb 11.2 oz Microbiology Reports for the Last 24 Hours: Microbiology 12/23/23 11:55 Blood Blood Culture - Preliminary NO GROWTH AFTER 48 HOURS 12/23/23 11:55 Blood Blood Culture - Preliminary NO GROWTH AFTER 48 HOURS 12/23/23 16:30 Nose MRSA Culture - Final Negative Constitutional: Present moderate distress Head: Present normocephalic and atraumatic ENT: Present normal exam, normal oropharynx and mucous membranes moist Neck: Present normal inspection and full ROM Respiratory: Present able to speak in complete sentences; Absent prolonged expiratory phase, respiratory distress, wheezes or diminished air movement Cardiac: Present S1/S2, Tachycardia and radial pulses present GI: Present soft and distention; Absent tenderness or guarding Rectal (female): Present deferred (female): Present deferred Skin: Present intact; Absent cyanosis or jaundice Neuro: Present alert, awake and oriented x 3 Extremities: Present normal inspection; Absent clubbing or cyanosis Psychiatric: Present normal affect and cooperative Assessment and Plan *Assessment and plan (1) Pneumonia: Status: Acute Category: Medical Code(s): J18.9 - Pneumonia, unspecified organism Plan Ms. Garcia is a 43-year-old female with reported history of diabetes mellitus hypertension asplenia and asthma presented here with worsening distress and pulmonary was called for further evaluation and management. Patient recently admitted to the hospital complaining of febrile episodes and worsening respiratory send the Tmax of 101.8 admitted to the hospital and was discharged home on ceftriaxone azithromycin on 12/21/2023. Chest x-ray from previous admission showed bilateral lower lobe infiltrates, right greater than left along with right upper lobe infiltrates concerning for multilobar pneumonia. CT chest on this admission no dense consolidative changes noted. Right upper lobe groundglass opacities noted. Neutrophilic prominent leukocytosis of admission, worsening from her recent admission. Febrile with a Tmax of 102.6 on this admission. She was initiated on vancomycin and Zosyn on this admission. Blood and sputum cultures from this admission pending. No growth on her recent admission. Normal respiratory breann. Nasal MRSA PCR pending. COVID-19 and flu PCR panel negative. On examination patient does not appear to be in any respiratory distress. On room air saturating 95%. Admits cough with scant productive phlegm. Denies any worsening respiratory distress. CT neck concerning for extensive cervical adenopathy. Also noted to have a right subcapital femoral 3. No evidence of peritonsillar abscess. Repeat blood cultures no growth 24 hours. Interval update: No acute respiratory vents overnight. Continue to remain on room air. ENT following for the noted cervical lymphadenopathy scheduled for biopsy as an outpatient basis. Concerning oral lesion, currently being treated for possible herpes infection per primary team. Swab pending. Off Tylenol for the last 24 hours, low-grade fevers at 99.2. Antibiotics changed levofloxacin yesterday, tolerating well. Echo normal LV systolic and diastolic function RV mildly dilated and hypokinetic. No no reported vegetations. Slight worsening leukocytosis. Thrombocytosis. Severe hypokalemia. Plan: Continue levofloxacin to complete a total of 7-day course from pulmonary standpoint. Follow the urine strep Legionella antigen # Thank you for involving pulmonary in this patient care. Will continue to follow.
[2023-12-26] MEDS: MAGIC MOUTHWASH 300ML BOTTLE 15 ML PO ×4 (11:25→20:55)
[2023-12-26] MEDS: 0.9 % SODIUM CHLORIDE 1000ML 1,000 ML 75 ML IV (11:25)
[2023-12-26] MEDS: DEXAMETHASONE 4MG/ML 1ML VIAL 6 MG IV (11:29)
[2023-12-26 11:47] LABS: POC Glucose,Bedside 147 (70-110)
--- NOTE | 2023-12-26 12:10 | EXP.ACUTE.PN ---
Subjective *Date: 12/26/23 *Time: 18:00 Interval history: Patient feeling no better today but no worse. Remains afebrile for over 24 hours. Soft voice today, continues to have significant lymphadenopathy. Tolerating p.o. liquids. Hard time swallowing meds. Significant burning from potassium. Stable on room air. Medical Exam Vital signs and Labs for Last 24 Hours: Vital Signs Temp Pulse Resp BP Pulse Ox O2 Del Method 12/26/23 11:00 Room Air 12/26/23 09:00 Room Air 12/26/23 08:00 99.2 F 107 H 17 135/67 90 L Room Air 12/26/23 06:45 Room Air 12/26/23 05:00 Room Air 12/26/23 04:00 98.4 F 100 H 16 127/48 L 94 L Room Air 12/26/23 03:00 Room Air 12/26/23 01:00 Room Air 12/26/23 00:00 97.8 F 102 H 16 148/85 H 98 Room Air 12/25/23 23:00 Room Air 12/25/23 21:00 Room Air 12/25/23 20:00 85 18 98 Room Air 12/25/23 19:39 98.0 F 85 18 144/69 H 98 Room Air 12/25/23 17:00 Room Air 12/25/23 16:00 97.6 F 82 18 138/84 98 Room Air 12/25/23 15:00 Room Air 12/25/23 12:22 Room Air Intake and Output 12/25/23 12/26/23 12/26/23 23:59 07:59 15:59 Intake Total 1070 / 3777 421 / 661 240 / 661 Output Total 0 / 0 0 / 0 Balance 1070 / 3777 421 / 661 240 / 661 Intake: Intake, Oral Amount 120 / 480 120 / 360 240 / 360 Intake, Total IV Amount 950 / 3297 301 / 301 0.9 % Sodium Chloride 1000ML 1, 209 / 209 000 ml @ 75 mls/hr IV .[id number] [facility] Rx#:[id number] Acyclovir Sodium 450 mg In 0.9 500 / 500 % Sodium Chloride 250 ml @ 250 mls/hr IV Q8H [facility] Rx#:[id number] Piperacillin/Tazo 4.5 gm In 0.9 100 / 300 % Sodium Chloride 100 ml @ 200 mls/hr IV Q6H [facility] Rx#:[id number] Vancomycin/Water For Inj (Peg) 350 / 1050 1.75 gm In 350 ml @ 175 mls/hr IV ONCE ONE Rx#:[id number] Vancomycin/Water For Inj (Peg) 92 / 92 1.75 gm In 350 ml @ 175 mls/hr IV Q8H [facility] Rx#:[id number] Output: Output, Urine Amount 0 / 0 0 / 0 Other: Number of Unmeasured Voids 1 1 Number of Bowel Movements 1 Weight 91.535 kg Patient Weight 12/26/23 23:59 Weight 91.535 kg Laboratory Results - last 24 hr 12/25/23 14:00: Monoscreen Negative 12/25/23 16:28: POC Glucose 143 H 12/26/23 05:11: POC Glucose 179 H 12/26/23 06:03: WBC 11.4 H, RBC 4.32, Hgb 13.1, Hct 41.1, MCV 95.1, MCH 30.4, MCHC 32.0, RDW 14.7, Plt Count 653 H, MPV 10.0, Neut % (Auto) 29.4 L, Lymph % (Auto) 54.5 H, [place] % (Auto) 12.9 H, Eos % (Auto) 0.6, Baso % (Auto) 2.6 H, Neut # (Auto) 3.3, Lymph # (Auto) 6.2 H, [place] # (Auto) 1.5 H, Eos # (Auto) 0.1, Baso # (Auto) 0.3 H, Total Counted 100, Neutrophils % (Manual) 21 L, Lymphocytes % (Manual) 76 H, Monocytes % (Manual) 3, Platelet Estimate Moderate increase, Hypochromasia 1+, Macrocytosis 1+, Sodium 139, Potassium 2.6 L* D, Chloride 110 H, Carbon Dioxide 22, BUN 4 L D, Creatinine 0.50 L D, Estimated Creat Clear 207, Estimated GFR 134, Est GFR ( Amer) 162 D, Glucose 173 H D, Calcium 8.2 L, Magnesium 1.8 D, C-Reactive Protein 41.0 H D 12/26/23 11:31: POC Glucose 147 H I & O for Labs for Last 24 Hours: Intake & Output 12/23/23 12/24/23 12/25/23 12/26/23 23:59 23:59 23:59 23:59 Intake Total 360 / 810 2252 / 3152 3356 / 3777 661 / 661 Output Total 0 / 0 1 / 1 0 / 0 0 / 0 Balance 360 / 810 2251 / 3151 3356 / 3777 661 / 661 Weight 90.066 kg 91.036 kg 91.8 kg 91.535 kg Microbiology Reports for the Last 24 Hours: Microbiology 12/23/23 11:55 Blood Blood Culture - Preliminary NO GROWTH AFTER 48 HOURS 12/23/23 11:55 Blood Blood Culture - Preliminary NO GROWTH AFTER 48 HOURS 12/23/23 16:30 Nose MRSA Culture - Final Negative Constitutional: Present mild distress, obese and cooperative Head: Present atraumatic Comment:: Significant exudate on tonsils bilaterally, cold sore right bottom lip Neck: Present tenderness and lymphadenopathy Respiratory: Present normal respiratory effort; Absent rhonchi, wheezes or crackles Cardiac: Present Reg Rate and Rhythm GI: Present soft and normal bowel sounds; Absent distention or tenderness Extremities: Present normal inspection and full ROM; Absent edema Skin: Present intact; Absent erythema Neuro: Present Grossly Intact, alert, awake, oriented x 3 and moves all extremities Assessment and Plan *Assessment and plan (1) Multifocal pneumonia: Status: Acute Category: Medical Code(s): J18.9 - Pneumonia, unspecified organism (2) Hypoxic respiratory failure: Status: Acute Category: Medical Code(s): J96.91 - Respiratory failure, unspecified with hypoxia (3) Asplenia: Status: Acute Category: Medical Code(s): Q89.01 - Asplenia (congenital) (4) Severe sepsis: Status: Acute Category: Medical Code(s): A41.9 - Sepsis, unspecified organism; R65.20 - Severe sepsis without septic shock (5) Strep throat: Status: Acute Category: Medical Code(s): J02.0 - Streptococcal pharyngitis (6) Community acquired pneumonia: Status: Acute Category: Medical Code(s): J18.9 - Pneumonia, unspecified organism (7) Upper respiratory infection: Status: Acute Qualifiers: URI type: unspecified viral URI Qualified Code(s): J06.9 - Acute upper respiratory infection, unspecified Category: Medical Code(s): J06.9 - Acute upper respiratory infection, unspecified Plan 43-year-old female with past medical history of hypertension, diabetes, asplenia who presents with fevers, shortness of breath, malaise, new oxygen requirement. Patient seen PCP 12/16, diagnosed with strep throat, and started on p.o. doxycycline and IM Rocephin. Patient admitted by Dr. Harris 12/18 till 12/20 treated for pneumonia with IV antibiotics. Patient discharged on p.o. antibiotics(10 days PO cefdinir, 3 days PO azithromycin). Patient represented to emergency room for hospital admission 12/23/2023 complaining of hoarseness, SOB, weakness. Patient being treated for community-acquired pneumonia and possible peritonsillar abscess. ENT and pulmonology consulted and assisting with care. Continues to require inpatient management. Problems addressed as follows: Healthcare associated pneumonia, failed outpatient management Asplenia -Patient has history of asplenia for over 20 years. continue vancomycin IV. Broaden to levofloxacin 750 mg daily for better coverage of encapsulated bacteria - Remains on room air and afebrile for 24 hours.. Discussed case with pulmonology, continue broad-spectrum antibiotics with Levaquin and vancomycin. Completely 7 days of levofloxacin. Urine strep and Legionella pending. No changes today. -Discussed case with ENT, recommend mono swab. Obtained and negative. Recommend continuing steroids. Will give 6 mg IV dexamethasone once today. Reevaluate daily. -Continue IV acyclovir for HSV given her cold sore. HSV throat swab pending. -CRP improved today to 41, down from 117. Pro-Anthony remains in the normal range. White cell count slightly elevated 11.4. Repeat CBC, CMP, magnesium, CRP ordered for the morning. White count normal at 10.1. Diabetes: Morning glucose 173, continue sliding scale insulin with fingersticks ACHS. Will increase insulin glargine to 25 units tonight Hypertension: Continue home management and as needed IV hydralazine if needed PPx: Lovenox subcutaneous CODE STATUS full FEN: Diabetic diet
[2023-12-26] MEDS: KETOROLAC 30MG/ML VIAL 30 MG IM ×2 (12:26→20:55)
[2023-12-26] MEDS: LEVOFLOXACIN/D5W 750 MG/150 ML 750 MG/150 ML PIGGYBACK 100 MG IV (12:51)
[2023-12-26 13:04] LABS: Anion Gap 9.6 mEq/L (5-15); Carbon Dioxide 22 mmol/L (22.0-30.0)
[2023-12-26 13:30] LABS: Procalcitonin 0.078 ng/mL (0.0-2.0)
[2023-12-26 16:13] LABS: Body Fluid Culture, Sterile Not indicated. (.); Organism ID Not indicated. (.); Specimen Source Urine (.); Streptococcus pneumoniae Ag Negative (Negative)
[2023-12-26 16:13] LABS: Body Fluid Culture, Sterile Not indicated. (.); Legionella pneumophila Urinary Negative (Negative); Organism ID Not indicated. (.); Specimen Source Urine (.); Streptococcus pneumoniae Ag Negative (Negative)
[2023-12-26 16:40] LABS: POC Glucose,Bedside 229 (70-110)
[2023-12-26] MEDS: KCl 20mEq/100ml 100 ML 50 MEQ IV ×2 (16:43→20:51)
--- NOTE | 2023-12-26 17:19 | PC.NURSE ---
Assumed care at 1700. Patient alert and oriented times 4, sores in and around mouth. Nystatin swich and swallow given. No complaints at this time.
[2023-12-26 20:13] LABS: POC Glucose,Bedside 307 (70-110)
[2023-12-26] MEDS: ATORVASTATIN 40MG TABLET 40 MG PO (20:54)
[2023-12-26] MEDS: INSULIN GLARGINE 100 UNITS/ML 3ML FLEXPEN 20 UNIT SQ (20:54)
[2023-12-27] VITALS (7 sets, daily range): BP systolic 120–147; BP diastolic 66–88; PULSE 80–100; RESP 16–20; TEMP 36.6–36.9; O2SAT 95–100; BMI 31.8
[2023-12-27] MEDS: ACYCLOVIR SODIUM IV ×2 (01:27→09:32)
[2023-12-27] MEDS: SODIUM CHLORIDE 0.9% IV ×2 (01:27→09:32)
--- NOTE | 2023-12-27 04:50 | PC.NURSE ---
Pt is A&OX4 and has tolerated room air throughout shift. She has not complained of any pain and has remained afebrile. Pts voice is still soft and hoarse. Cold sores still remain on lips and mouth and is being treated per MAR. She has been ambulating to the bathroom independently with no issues. She is currently asleep, call light within reach.
[2023-12-27 05:14] LABS: POC Glucose,Bedside 133 (70-110)
[2023-12-27] MEDS: HEPARIN SODIUM 5,000 UNIT/ML VIAL 5000 UNIT SQ ×3 (05:14→21:03)
[2023-12-27] MEDS: VANCOMYCIN/WATER FOR INJ (PEG) 1.75 GM/350 ML PIGGYBACK IV (05:14)
[2023-12-27 06:14] LABS: Peripheral Smear Review Scanned Result
[2023-12-27 06:33] LABS: Albumin Level 2.9 g/dl (3.5-5.0); Chloride 111 mmol/L (98-107)
[2023-12-27 06:34] LABS: Sodium 139 mmol/L (136-145)
[2023-12-27 06:35] LABS: Basophils # 0.2 K/mm3 (0-0.2); Basophils % 1.8 % (0.1-2.0); Eosinophils % 0.2 % (0.1-12.0); Hematocrit 37.2 % (37.0-47.0); Hemoglobin 11.8 g/dL (12.2-16.2); Lymphocytes # 6.7 K/mm3 (0.7-4.5); Lymphocytes % 68.9 % (10-50); Mean Corpuscular HGB Conc 31.8 g/dL (31.8-35.4); Mean Corpuscular Hemoglobin 30.2 pg (27.0-31.2); Mean Corpuscular Volume 94.7 fl (81-99); Mean Platelet Volume 9.5 fl (7.4-10.4); Monocytes # 1.1 K/mm3 (0.1-1.0); Monocytes % 11.6 % (1.7-9.3); Neutrophils # 1.7 K/mm3 (1.8-7.8); Neutrophils % 17.5 % (37.0-80.0); Platelet Count 551 K/mm3 (142-424); Red Blood Count 3.92 M/mm3 (4.20-5.40); Red Cell Distribution Width 14.6 % (11.5-17.5); White Blood Count 9.8 K/mm3 (4.8-10.8)
[2023-12-27 06:36] LABS: Alanine Aminotransferase 13 U/L (12-78); Aspartate Amino Transferase 21 U/L (14-36); Blood Urea Nitrogen 6 mg/dl (7-17); Carbon Dioxide 26 mmol/L (22.0-30.0); Creatinine Clearance Estimated 204 mL/min (50-200); Estimated Glomerular Filt Rate 134 ml/min (>60); GFR (African American) 162 ML/MIN (>60)
[2023-12-27 06:37] LABS: Alkaline Phosphatase 71 U/L (38-126); Bilirubin,Total 0.4 mg/dl (0.2-1.3); Globulin 2.9 g/dL (1.3-3.2); Glucose 130 mg/dl (74-100); Total Protein,Serum 5.8 g/dl (6.3-8.2)
[2023-12-27 07:20] LABS: MANUAL DIFFERENTIAL MANUAL DIFFERENTIAL (MANUAL DIFF)
[2023-12-27 07:27] LABS: Magnesium 1.8 mg/dl (1.6-2.3)
[2023-12-27 07:34] LABS: C-Reactive Protein 31.5 mg/L (0-4)
--- NOTE | 2023-12-27 07:38 | PC.NURSE ---
pt refused to get up to chair for breakfast. pt stated she didnt feel good and wanted to sit up in bed for breakfast.
[2023-12-27] MEDS: KCl 20mEq/100ml 100 ML 50 MEQ IV ×2 (09:32→11:58)
[2023-12-27] MEDS: DEXAMETHASONE 4MG/ML 1ML VIAL 6 MG IV (09:32)
[2023-12-27] MEDS: CHOLECALCIFEROL 1,000 UNITS (25MCG) TABLET 50 MCG PO (09:34)
[2023-12-27] MEDS: FENOFIBRATE 134MG CAPSULE 134 MG PO (09:34)
[2023-12-27] MEDS: BISOPROLOL 5MG TABLET 10 MG PO (09:35)
[2023-12-27] MEDS: MAGIC MOUTHWASH 300ML BOTTLE 15 ML PO ×4 (09:35→21:05)
[2023-12-27] MEDS: NYSTATIN SUSP 500,000 UNITS/5ML UDC 500000 UNIT PO ×4 (09:51→21:05)
[2023-12-27] MEDS: KETOROLAC 30MG/ML VIAL 30 MG IV (10:00)
[2023-12-27] MEDS: humaLOG 100 UNITS/ML 10ML VIAL (SSI) SQ ×3 (11:16→21:05)
[2023-12-27] MEDS: LEVOFLOXACIN/D5W 750 MG/150 ML 750 MG/150 ML PIGGYBACK 100 MG IV (11:16)
[2023-12-27 11:17] LABS: POC Glucose,Bedside 247 (70-110)
[2023-12-27] MEDS: 0.9 % SODIUM CHLORIDE 1000ML 1,000 ML 75 ML IV (12:54)
[2023-12-27 13:06] LABS: Eosinophils % 1 % (0-3); Lymphocytes % 75 % (10-50); Monocytes % 19 % (2-9); Neutrophils % 5 % (42-76); Total Cells Counted 100
[2023-12-27 13:15] LABS: Platelet Estimate Moderate Increase
[2023-12-27 13:16] LABS: Burr Cells 1+; Target Cells 1+
[2023-12-27 14:13] LABS: EBV Ab VCA, IgM <36.0 U/mL (0.0-35.9)
--- NOTE | 2023-12-27 15:00 | P.PN_ITS ---
Subjective *Date: 12/27/23 *Time: 16:04 Interval history: Seeing some improvement in her swallowing. Able to take a few bites of dinner last night and a few bites of breakfast. Has not tried oral medications/pills yet. Still receiving IV fluids. Stable on room air. Voice hoarse and weak. No fever for 48 hours Medical Exam Vital signs and Labs for Last 24 Hours: Vital Signs Temp Pulse Pulse Resp BP Pulse Ox O2 Del Method 12/27/23 14:46 Room Air 12/27/23 13:28 100 H 12/27/23 12:37 Room Air 12/27/23 12:00 98.2 F 83 18 124/88 100 Room Air 12/27/23 10:38 Room Air 12/27/23 09:00 Room Air 12/27/23 08:00 Room Air 12/27/23 08:00 98.2 F 98 H 16 147/88 H 95 Room Air 12/27/23 06:44 Room Air 12/27/23 05:00 Room Air 12/27/23 04:00 98.3 F 90 16 122/72 96 Room Air 12/27/23 02:56 Room Air 12/27/23 01:00 Room Air 12/27/23 00:00 98.2 F 95 H 18 120/66 99 Room Air 12/27/23 00:00 80 12/26/23 23:00 Room Air 12/26/23 22:02 90 12/26/23 21:00 Room Air 12/26/23 20:00 Room Air 12/26/23 20:00 98.4 F 99 H 20 119/73 97 Room Air 12/26/23 18:33 Room Air 12/26/23 17:59 120 H 12/26/23 17:10 Room Air 12/26/23 16:00 97.9 F 92 H 18 117/70 98 Room Air Intake and Output 12/26/23 12/27/23 12/27/23 23:59 07:59 15:59 Intake Total 320 / 1331 685 / 1160 475 / 1160 Output Total 0 / 0 0 / 0 0 / 0 Balance 320 / 1331 685 / 1160 475 / 1160 Intake: Intake, Oral Amount 320 / 1030 685 / 1160 475 / 1160 Output: Output, Urine Amount 0 / 0 0 / 0 0 / 0 Other: Number of Unmeasured Voids 1 1 2 Weight 89.896 kg Patient Weight 12/27/23 23:59 Weight 89.896 kg Laboratory Results - last 24 hr 12/23/23 05:40: Fluid Culture Not indicated., Ur L.pneumophila Ag Negative, S. pneumoniae Antigen Negative, S. pneumoniae Ag Source Urine, Organism ID Not indicated. 12/23/23 12:01: Fluid Culture Not indicated., S. pneumoniae Antigen Negative, S. pneumoniae Ag Source Urine, Organism ID Not indicated. 12/25/23 14:00: EBV Capsid Ag IgG Ab 566.0 H, EBV Capsid Ag IgM Ab <36.0, EBV Nuclear Ag IgG Ab 417.0 H, EBV Interpretation Comment 12/26/23 16:32: POC Glucose 229 H 12/26/23 20:04: POC Glucose 307 H* 12/27/23 05:07: POC Glucose 133 H 12/27/23 05:53: WBC 9.8, RBC 3.92 L, Hgb 11.8 L, Hct 37.2, MCV 94.7, MCH 30.2, MCHC 31.8, RDW 14.6, Plt Count 551 H, MPV 9.5, Neut % (Auto) 17.5 L, Lymph % (Auto) 68.9 H, Terry % (Auto) 11.6 H, Eos % (Auto) 0.2, Baso % (Auto) 1.8, Neut # (Auto) 1.7 L, Lymph # (Auto) 6.7 H, Terry # (Auto) 1.1 H, Eos # (Auto) 0.0, Baso # (Auto) 0.2, Total Counted 100, Neutrophils % (Manual) 5 L, Lymphocytes % (Manual) 75 H, Monocytes % (Manual) 19 H, Eosinophils % (Manual) 1, Platelet Estimate Moderate increase, Target Cells 1+, Flaquito Cells 1+, Sodium 139, Potassium 3.0 L, Chloride 111 H, Carbon Dioxide 26, Anion Gap 5.0, BUN 6 L D, Creatinine 0.50 L, Estimated Creat Clear 204, Estimated GFR 134, Est GFR ( Amer) 162, Glucose 130 H D, Calcium 8.0 L, Magnesium 1.8, Total Bilirubin 0.4, AST 21, ALT 13, Alkaline Phosphatase 71, C-Reactive Protein 31.5 H, Total Protein 5.8 L, Albumin 2.9 L, Globulin 2.9, Albumin/Globulin Ratio 1.0 L 12/27/23 11:09: POC Glucose 247 H I & O for Labs for Last 24 Hours: Intake & Output 12/24/23 12/25/23 12/26/23 12/27/23 23:59 23:59 23:59 23:59 Intake Total 2252 / 3152 3356 / 3777 981 / 1331 1160 / 1160 Output Total 1 / 1 0 / 0 0 / 0 0 / 0 Balance 2251 / 3151 3356 / 3777 981 / 1331 1160 / 1160 Weight 91.036 kg 91.8 kg 91.535 kg 89.896 kg Microbiology Reports for the Last 24 Hours: Microbiology 12/23/23 11:55 Blood Blood Culture - Preliminary NO GROWTH AFTER 4 DAYS 12/23/23 11:55 Blood Blood Culture - Preliminary NO GROWTH AFTER 4 DAYS Constitutional: Present mild distress, obese and cooperative Head: Present atraumatic Comment:: Slight improvement in exudative pharyngitis. Cold sore showing some improvement. Neck: Present tenderness and lymphadenopathy Respiratory: Present normal respiratory effort; Absent rhonchi, wheezes or crackles Cardiac: Present Reg Rate and Rhythm GI: Present soft and normal bowel sounds; Absent distention or tenderness Extremities: Present normal inspection and full ROM; Absent edema Skin: Present intact; Absent erythema Neuro: Present Grossly Intact, alert, awake, oriented x 3 and moves all extremities Assessment and Plan *Assessment and plan (1) Multifocal pneumonia: Status: Acute Category: Medical Code(s): J18.9 - Pneumonia, unspecified organism (2) Hypoxic respiratory failure: Status: Acute Category: Medical Code(s): J96.91 - Respiratory failure, unspecified with hypoxia (3) Asplenia: Status: Acute Category: Medical Code(s): Q89.01 - Asplenia (congenital) (4) Severe sepsis: Status: Acute Category: Medical Code(s): A41.9 - Sepsis, unspecified organism; R65.20 - Severe sepsis without septic shock (5) Strep throat: Status: Acute Category: Medical Code(s): J02.0 - Streptococcal pharyngitis (6) Community acquired pneumonia: Status: Acute Category: Medical Code(s): J18.9 - Pneumonia, unspecified organism (7) Upper respiratory infection: Status: Acute Qualifiers: URI type: unspecified viral URI Qualified Code(s): J06.9 - Acute upper respiratory infection, unspecified Category: Medical Code(s): J06.9 - Acute upper respiratory infection, unspecified Plan 43-year-old female with past medical history of hypertension, diabetes, asplenia who presents with fevers, shortness of breath, malaise, new oxygen requirement. Patient seen PCP 12/16, diagnosed with strep throat, and started on p.o. doxycycline and IM Rocephin. Patient admitted by Dr. Harris 12/18 till 12/20 treated for pneumonia with IV antibiotics. Patient discharged on p.o. antibiotics(10 days PO cefdinir, 3 days PO azithromycin). Patient represented to emergency room for hospital admission 12/23/2023 complaining of hoarseness, SOB, weakness. Patient being treated for community-acquired pneumonia and possible peritonsillar abscess. ENT and pulmonology consulted and assisting with care. Continues to require inpatient management. Problems addressed as follows: Healthcare associated pneumonia, failed outpatient management Asplenia -Patient has history of asplenia for over 20 years. continue vancomycin IV. Broaden to levofloxacin 750 mg daily for better coverage of encapsulated bacteria - Remains on room air and afebrile for 24 hours.. Discussed case with pulmonology, continue broad-spectrum antibiotics with Levaquin, discontinue vancomycin as MRSA swab is negative. Complete 7 days of levofloxacin. Urine strep and Legionella negative -Discussed case with ENT, EBV IgG's positive, IgM negative. Monospot negative. Will give 6 mg IV dexamethasone once today. Reevaluate daily. 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 HSV throat swab pending. -CRP improved today to 31, down from 117. White count normal at 9.8. Hemoglobin 11.8.repeat CBC, CMP, magnesium, CRP ordered for the morning. -Transition oral acyclovir and Levaquin to monitor for tolerance. If tolerates well, anticipate discharge tomorrow. Diabetes: Morning glucose 130, continue sliding scale insulin with fingersticks ACHS. Continue glargine at 25 units nightly Hypertension: Continue home management and as needed IV hydralazine if needed PPx: Lovenox subcutaneous CODE STATUS full FEN: Diabetic diet
[2023-12-27 16:30] LABS: POC Glucose,Bedside 241 (70-110)
[2023-12-27] MEDS: ACYCLOVIR 400MG TAB 400 MG PO ×2 (16:30→21:04)
[2023-12-27] MEDS: PHENOL THROAT SPRAY 177 ML BOTTLE MM (16:33)
--- NOTE | 2023-12-27 16:37 | PC.NURSE ---
pt has remained a&ox4 and has remained on room air this shift. pt antibiotic was switched to PO to see how pt tolerated swallowing pills. pt has had no compliants throughout shift. plan for pt is possible d/c to home tomorrow. no new orders at this time. call light within reach.
[2023-12-27 20:33] LABS: POC Glucose,Bedside 224 (70-110)
[2023-12-27] MEDS: ATORVASTATIN 40MG TABLET 40 MG PO (21:04)
[2023-12-27] MEDS: INSULIN GLARGINE 100 UNITS/ML 3ML FLEXPEN 20 UNIT SQ (21:04)
[2023-12-27] MEDS: FERROUS SULFATE 325MG TABLET 325 MG PO (21:04)
[2023-12-28] VITALS: BP 135/83; PULSE 86; RESP 16; TEMP 36.8; O2SAT 95
[2023-12-28 04:00] VITALS: BP 131/82; PULSE 86; RESP 16; TEMP 36.4; O2SAT 95; BMI 31.8
[2023-12-28] MEDS: HEPARIN SODIUM 5,000 UNIT/ML VIAL 5000 UNIT SQ (05:08)
[2023-12-28] MEDS: KETOROLAC 30MG/ML VIAL 30 MG IV (05:09)
--- NOTE | 2023-12-28 05:21 | PC.NURSE ---
Patient is A&OX4 and has tolerated room air. Pts voice sounds slightly better than it did the night before. Pt did complain of a headache once this shift and was treated per MAR. Other then that patient reports feeling better today then she has. No complaints at this time, call light within reach.
[2023-12-28 06:15] LABS: POC Glucose,Bedside 113 (70-110)
--- NOTE | 2023-12-28 07:32 | EXP.DC.SUM ---
General Admission date:: 12/23/23 Discharge date: 12/28/23 HPI HPI HPI: Patient is a 43-year-old female with past medical history of diabetes mellitus hypertension asplenia asthma who presents to the hospital for worsening overall health. According to patient she was recently discharged from the hospital at that time she was diagnosed with pneumonia and started on antibiotics at discharge. Patient has generalized weakness, fatigue since her time of discharge. Patient also mentions having fevers. Patient also complains of shortness of breath productive cough. Patient was noticed to have low oxygen saturations in the emergency department and was mated for further evaluation. Patient denies chest pain nausea vomiting diarrhea. Hospital Course Hospital Course Hospital Course: 43-year-old female with past medical history of hypertension, diabetes, asplenia who presents with fevers, shortness of breath, malaise, new oxygen requirement. Patient seen PCP 12/16, diagnosed with strep throat, and started on p.o. doxycycline and IM Rocephin. Patient admitted by Dr. Harris 12/18 till 12/20 treated for pneumonia with IV antibiotics. Patient discharged on p.o. antibiotics(10 days PO cefdinir, 3 days PO azithromycin). Patient represented to emergency room for hospital admission 12/23/2023 complaining of hoarseness, SOB, weakness. Patient being treated for community-acquired pneumonia and severe pharyngitis. ENT and pulmonology consulted to assist with care. ENT recommended addition of steroids. Will plan for follow-up in the next 2 weeks for evaluation and possible biopsy. Plan for follow-up with pulmonology in 2 to 3 weeks for further management. Showing clinical improvement over the past 3 days with no fever for at least 72 hours. Tolerating p.o. medications and nutrition. Stable to discharge home to complete antibiotic and antiviral course. Problems addressed as follows: Healthcare associated pneumonia, failed outpatient management Asplenia Severe exudative pharyngitis -Patient has history of asplenia for over 20 years. Initiated on vancomycin and Zosyn. Showing slight clinical improvement, transitioned to levofloxacin for better coverage of encapsulated bacteria and ease of transition to oral regimen. MRSA swab returned negative, vancomycin was discontinued. Plan to complete 7 days total of antibiotics with levofloxacin. This should cover both pulmonary and tonsillar sources. Pulmonology was consulted, recommend follow-up as an outpatient and completing antibiotics as above. Urine strep and Legionella were obtained, they were negative. Swab of throat obtained for HSV given new finding of cold sore during admission. Patient states she is never had them before. Initiated on acyclovir, will complete 7-day course of antiviral therapy as well. ENT was consulted, EBV antibodies were obtained and found to be positive for IgG but negative for IgM. Monospot was negative. Continue steroids to complete 5 days of dexamethasone. 6mg daily for 2 more days after discharge. White cell count overall improving. Slight bump thought to be secondary to steroids. CRP consistently improving, down to 24 on day of discharge, was elevated as high as 117. Patient has been stable on room air. No fever for at least 72 hours. Tolerating oral medications and nutrition. Will discharge home with close follow-up as an outpatient. Counseled to stay home and not return to work until at least next week pending symptom resolution. Hypokalemia: Potassium has been low during admission, tolerating oral replacement. 3.1 on day of discharge. Continue 30 mEq twice daily for the next week. Anticipate normalization with improvement in diet. Diabetes: Glucoses improved with morning glucoses in the 1 30-1 40 range. Resume home regimen at discharge along with basal insulin regimen nightly. Hypertension: Continue home management and as needed IV hydralazine if needed Total time spent on discharge 32 minutes in counseling, documentation, chart review, and direct care with patient. Exam Data for Last 24 hours Vital signs and Labs for Last 24 Hours: Temp Pulse Resp BP Pulse Ox O2 Del Method O2 Flow Rate 97.6 F 86 16 131/82 95 Room Air 2 12/28/23 04:00 12/28/23 04:00 12/28/23 04:00 12/28/23 04:00 12/28/23 04:00 12/28/23 06:30 12/24/23 12:00 Laboratory Results - last 24 hr 12/25/23 14:00: EBV Capsid Ag IgG Ab 566.0 H, EBV Capsid Ag IgM Ab <36.0, EBV Nuclear Ag IgG Ab 417.0 H, EBV Interpretation Comment 12/27/23 05:53: Total Counted 100, Neutrophils % (Manual) 5 L, Lymphocytes % (Manual) 75 H, Monocytes % (Manual) 19 H, Eosinophils % (Manual) 1, Platelet Estimate Moderate increase, Target Cells 1+, Flaquito Cells 1+, Sodium 139, Potassium 3.0 L, Chloride 111 H, Carbon Dioxide 26, Anion Gap 5.0, BUN 6 L D, Creatinine 0.50 L, Estimated Creat Clear 204, Estimated GFR 134, Est GFR ( Amer) 162, Glucose 130 H D, Calcium 8.0 L, Magnesium 1.8, Total Bilirubin 0.4, AST 21, ALT 13, Alkaline Phosphatase 71, C-Reactive Protein 31.5 H, Total Protein 5.8 L, Albumin 2.9 L, Globulin 2.9, Albumin/Globulin Ratio 1.0 L 12/27/23 11:09: POC Glucose 247 H 12/27/23 16:23: POC Glucose 241 H 12/27/23 20:25: POC Glucose 224 H 12/28/23 05:04: POC Glucose 113 H I & O for Last 24 hours: Intake & Output 12/25/23 12/26/23 12/27/23 12/28/23 23:59 23:59 23:59 23:59 Intake Total 3356 / 3777 981 / 1331 1760 / 2060 300 / 300 Output Total 0 / 0 0 / 0 0 / 0 0 / 0 Balance 3356 / 3777 981 / 1331 1760 / 2060 300 / 300 Weight 91.8 kg 91.535 kg 89.896 kg 89.953 kg Microbiology Reports for the Last 24 Hours: Microbiology 12/23/23 11:55 Blood Blood Culture - Preliminary NO GROWTH AFTER 4 DAYS 12/23/23 11:55 Blood Blood Culture - Preliminary NO GROWTH AFTER 4 DAYS Constitutional Constitutional: no acute distress, obese and cooperative *Routine HEENT Exam Head: Present normocephalic Eye: Present EOMI and PERRL ENT: Present mucous membranes moist Comments: Exudative pharyngitis, stable. Healing cold sore right bottom lip *Routine Neck Exam Neck: Present supple and lymphadenopathy (Tender with interval improvement) *Routine Respiratory Exam Respiratory: Present CTA bilaterally; Absent rhonchi, wheezes or crackles *Routine Cardiovascular Exam Cardiovascular: Present RRR *Routine Abdominal Exam Abdominal: Present soft and normoactive bowel sounds; Absent tenderness *Routine Rectal Exam Patient deferred: visual exam *Routine Exam Patient deferred: external exam *Routine Extremities Exam Extremities: Absent cyanosis, clubbing or edema *Routine Skin Exam Skin: Present intact and warm; Absent cyanosis or rash *Routine Neurological Exam Neurological: Present alert, oriented X3 and moving all extremities; Absent altered mental status Routine Psychiatric Exam Psychiatric: Present normal affect Results Data Completed and Pending Labs on day of discharge: Labs from last 24 hours 12/28/23 12/27/23 12/27/23 05:04 20:25 16:23 Total Counted Neutrophils % (Manual) Lymphocytes % (Manual) Monocytes % (Manual) Eosinophils % (Manual) Platelet Estimate Target Cells [place] Cells Sodium Potassium Chloride Carbon Dioxide Anion Gap BUN Creatinine Estimated Creat Clear Estimated GFR Est GFR ( Amer) Glucose POC Glucose 113 H 224 H 241 H Calcium Magnesium Total Bilirubin AST ALT Alkaline Phosphatase C-Reactive Protein Total Protein Albumin Globulin Albumin/Globulin Ratio EBV Capsid Ag IgG Ab EBV Capsid Ag IgM Ab EBV Nuclear Ag IgG Ab EBV Interpretation 12/27/23 12/27/23 12/25/23 11:09 05:53 14:00 Total Counted 100 Neutrophils % (Manual) 5 L Lymphocytes % (Manual) 75 H Monocytes % (Manual) 19 H Eosinophils % (Manual) 1 Platelet Estimate Moderate increase Target Cells 1+ Flaquito Cells 1+ Sodium 139 Potassium 3.0 L Chloride 111 H Carbon Dioxide 26 Anion Gap 5.0 BUN 6 L D Creatinine 0.50 L Estimated Creat Clear 204 Estimated GFR 134 Est GFR ( Amer) 162 Glucose 130 H D POC Glucose 247 H Calcium 8.0 L Magnesium 1.8 Total Bilirubin 0.4 AST 21 ALT 13 Alkaline Phosphatase 71 C-Reactive Protein 31.5 H Total Protein 5.8 L Albumin 2.9 L Globulin 2.9 Albumin/Globulin Ratio 1.0 L EBV Capsid Ag IgG Ab 566.0 H EBV Capsid Ag IgM Ab <36.0 EBV Nuclear Ag IgG Ab 417.0 H EBV Interpretation Comment Preliminary micro results at discharge 12/23/23 11:55 Blood Culture - Preliminary Blood NO GROWTH AFTER 4 DAYS 12/23/23 11:55 Blood Culture - Preliminary Blood NO GROWTH AFTER 4 DAYS DS: Diagnosis Discharge Diagnosis (1) Multifocal pneumonia: Status: Acute Code(s): J18.9 - Pneumonia, unspecified organism (2) Hypoxic respiratory failure: Status: Acute Code(s): J96.91 - Respiratory failure, unspecified with hypoxia (3) Asplenia: Status: Acute Code(s): Q89.01 - Asplenia (congenital) (4) Severe sepsis: Status: Acute Code(s): A41.9 - Sepsis, unspecified organism; R65.20 - Severe sepsis without septic shock (5) Strep throat: Status: Acute Code(s): J02.0 - Streptococcal pharyngitis (6) Community acquired pneumonia: Status: Acute Code(s): J18.9 - Pneumonia, unspecified organism (7) Upper respiratory infection: Status: Acute Code(s): J06.9 - Acute upper respiratory infection, unspecified Qualifiers: URI type: unspecified viral URI Qualified Code(s): J06.9 - Acute upper respiratory infection, unspecified Meds Home Medications and Allergies Home Medications ?Medication ?Instructions ?Recorded ?Confirmed ?Type bisoprolol fumarate 10 mg tablet 10 mg PO DAILY 10/02/20 12/23/23 History fenofibrate 160 mg tablet 160 mg PO DAILY 01/16/22 12/23/23 History cholecalciferol (vitamin D3) 125 125 mcg PO DAILY 02/08/23 12/23/23 History mcg (5,000 unit) tablet (Vitamin D3) ferrous sulfate 325 mg (65 mg 325 mg PO Q48H 02/08/23 12/23/23 History iron) tablet (FeroSul) gabapentin 300 mg capsule 300 mg PO BIDP PRN Neuropathic Pain 03/05/23 12/23/23 History rosuvastatin 20 mg tablet 20 mg PO DAILY 06/06/23 12/23/23 History albuterol sulfate 90 mcg/actuation 2 puff inhalation Q4HP PRN 12/19/23 12/23/23 History aerosol inhaler Shortness Of Breath desvenlafaxine succinate 100 mg 100 mg PO DAILY 12/19/23 12/23/23 History tablet,extended release 24 hr (Pristiq) dextromethorphan IR 45 1 tab PO BID 12/19/23 12/23/23 History mg-bupropion ER 105 mg biphasic tablet (Auvelity) diazepam 10 mg tablet (Valium) 10 mg PO BIDP PRN anxiety 12/19/23 12/23/23 History insulin glargine U-300 conc 300 10 unit SQ HS 12/19/23 12/23/23 History unit/mL (3 mL) subcutaneous pen (Toujeo Max U-300 SoloStar) insulin lispro 100 unit/mL 10 unit SQ TID 12/19/23 12/23/23 History subcutaneous pen (Humalog KwikPen (U-100) Insulin) tirzepatide 10 mg/0.5 mL 10 mg SQ WEEKLY 12/19/23 12/23/23 History subcutaneous pen injector (Mounjaro) triamterene 37.5 1 tab PO DAILYP PRN Edema 12/19/23 12/23/23 History mg-hydrochlorothiazide 25 mg tablet Magic Mouthwash [Magic 15 ml PO QID 5 days ##0 12/28/23 Rx Mouthwash;300mL Botttle] acyclovir 400 mg tablet 400 mg PO TID 3 days #9 tabs 12/28/23 Rx dexamethasone 6 mg tablet 6 mg PO DAILY 2 days #2 tabs 12/28/23 Rx levofloxacin 750 mg tablet 750 mg PO 1100 3 days #3 tabs 12/28/23 Rx lidocaine HCl 2 % mucosal solution 15 ml PO QIDP PRN Mouth Irritation 12/28/23 Rx 5 days #100 mL potassium chloride 10 mEq 30 meq (3 x 10 mEq) PO BIDL 3 days 12/28/23 Rx tablet,extended #18 tabs release(part/cryst) (Klor-Con M) New Prescriptions to Start Prescriptions: acyclovir Marisel,Riky dexamethasone Riky Joiner levofloxacin Riky Joiner lidocaine HCl Riky Joiner potassium chloride [Klor-Con M10] Riky Joiner Allergies Allergy/AdvReac Type Severity Reaction Status Date / Time No Known Allergies Allergy Verified 11/05/23 16:07 Discharge Plan Disposition Patient Disposition: Home, Self-Care Condition: Fair Discharge Order Discharge Orders: Discharge Order (Routine); Ordered 12/28/23 Ordered By: Riky Joiner Follow up Plan Follow up with: Anjana Avila APRN [Nurse Practitioner] - 01/14/24 1:00 pm Diamond Kramer APRN [Primary Care Provider] - 01/14/24 9:30 am Stephanie Darnell MD [Physician] - 01/10/24 1:00 pm Prescriptions/Medication Reconciliation: New acyclovir 400 mg Tablet 400 mg PO TID 3 Days Qty: 9 0RF levofloxacin 750 mg Tablet 750 mg PO 1100 3 Days Qty: 3 0RF Magic Mouthwash [Magic Mouthwash;300ml Botttle] 15 ml PO QID 5 Days Qty: 0 0RF Rx Instructions: send with bottle from inpatient setting lidocaine HCl 2 % Solution 15 ml PO QIDP PRN (Reason: Mouth Irritation) 5 Days Qty: 100 0RF potassium chloride [Klor-Con M10] 10 mEq Tablet,Er Particles/Crystals 30 meq PO BIDL 3 Days Qty: 18 0RF dexamethasone 6 mg tablet 6 mg PO DAILY 2 Days Qty: 2 0RF Continued gabapentin 300 mg capsule 300 mg PO BIDP PRN (Reason: Neuropathic Pain) bisoprolol fumarate 10 MG tablet 10 mg PO DAILY ferrous sulfate [FeroSul] 325 mg (65 mg iron) tablet 325 mg PO Q48H Patient Comments: TAKE 1 TABLET BY MOUTH EVERY OTHER DAY cholecalciferol (vitamin D3) [Vitamin D3] 125 mcg (5,000 unit) Tablet 125 mcg PO DAILY triamterene-hydrochlorothiazid 37.5-25 mg tablet 1 tab PO DAILYP PRN (Reason: Edema) Patient Comments: TAKE 1 TABLET BY MOUTH ONCE DAILY NEEDED FOR EDEMA albuterol sulfate 90 mcg/actuation HFA aerosol inhaler 2 puff INHALATION Q4HP PRN (Reason: Shortness Of Breath) Patient Comments: INHALE 2 PUFFS BY MOUTH EVERY 4 TO 6 HOURS NEEDED Mounjaro 10 mg/0.5 mL pen injector 10 mg SQ WEEKLY Patient Comments: INJECT 1 SYRINGE SUBCUTANEOUSLY ONCE A WEEK diazepam [Valium] 10 mg tablet 10 mg PO BIDP PRN (Reason: anxiety) insulin lispro [Humalog KwikPen Insulin] 100 unit/mL insulin pen 10 unit SQ TID Patient Comments: Per patient, only takes 20 unit dose with meals - skips if skipped meal desvenlafaxine succinate [Pristiq] 100 mg tablet extended release 24 hr 100 mg PO DAILY Auvelity 45-105 mg tablet, IR and ER, biphasic 1 tab PO BID insulin glargine U-300 conc [Toujeo Max U-300 SoloStar] 300 unit/mL (3 mL) insulin pen 10 unit SQ HS Patient Comments: INJECT 62 UNITS SUBCUTANEOUSLY ONCE DAILY DIRECTED fenofibrate 160 mg tablet 160 mg PO DAILY Patient Comments: TAKE 1 TABLET BY MOUTH ONCE DAILY rosuvastatin 20 mg Tablet 20 mg PO DAILY Discontinued azithromycin 500 mg tablet 500 mg PO DAILY 2 Days Qty: 2 0RF Rx Instructions: start on day 2 of therapy cefdinir 300 mg capsule 300 mg PO BID Qty: 15 0RF Problem Reconciliation Problems Reviewed?: Yes Patient Discharge Instructions ACTIVITY: Continue current activity DIET: continue same diet Stand Alone Forms: [facility] Work Release Patient Instructions: DI for Pneumonia -- Adult, DI for Sepsis -- Adult Print Language: Faroese Providers Primary Care Provider: Diamond Kramer Admit Provider: Hilda Gonsalez Attending Provider: Hilda Gonsalez
[2023-12-28 07:35] LABS: Albumin Level 3.8 g/dl (3.5-5.0); Chloride 104 mmol/L (98-107); Potassium 3.1 mmoL/L (3.5-5.1); Sodium 139 mmol/L (136-145)
[2023-12-28 07:38] LABS: Alanine Aminotransferase 27 U/L (12-78); Alkaline Phosphatase 83 U/L (38-126); Anion Gap 8.1 mEq/L (5-15); Aspartate Amino Transferase 34 U/L (14-36); Bilirubin,Total 0.6 mg/dl (0.2-1.3); Blood Urea Nitrogen 9 mg/dl (7-17); Calcium 9.1 mg/dl (8.4-10.2); Carbon Dioxide 30 mmol/L (22.0-30.0); Creatinine Clearance Estimated 170 mL/min (50-200); Estimated Glomerular Filt Rate 109 ml/min (>60); GFR (African American) 131 ML/MIN (>60); Globulin 3.7 g/dL (1.3-3.2); Glucose 146 mg/dl (74-100); Total Protein,Serum 7.5 g/dl (6.3-8.2)
[2023-12-28 07:40] VITALS: BP 156/89; PULSE 90; RESP 14; TEMP 36.4; O2SAT 97
[2023-12-28 07:40] LABS: Basophils # 0.3 K/mm3 (0-0.2); Basophils % 2.5 % (0.1-2.0); Eosinophils % 0.3 % (0.1-12.0); Hematocrit 46.5 % (37.0-47.0); Hemoglobin 14.4 g/dL (12.2-16.2); Lymphocytes # 8.2 K/mm3 (0.7-4.5); Lymphocytes % 61.4 % (10-50); Mean Corpuscular Hemoglobin 29.9 pg (27.0-31.2); Mean Corpuscular Volume 96.6 fl (81-99); Mean Platelet Volume 9.1 fl (7.4-10.4); Monocytes # 1.5 K/mm3 (0.1-1.0); Monocytes % 11.3 % (1.7-9.3); Neutrophils # 3.3 K/mm3 (1.8-7.8); Neutrophils % 24.4 % (37.0-80.0); Platelet Count 657 K/mm3 (142-424); Red Blood Count 4.82 M/mm3 (4.20-5.40); Red Cell Distribution Width 14.5 % (11.5-17.5); White Blood Count 13.3 K/mm3 (4.8-10.8)
[2023-12-28] MEDS: POTASSIUM CHLORIDE 10MEQ TABLET.ER 30 MEQ PO (08:28)
[2023-12-28] MEDS: NYSTATIN SUSP 500,000 UNITS/5ML UDC 500000 UNIT PO (08:28)
[2023-12-28] MEDS: MAGIC MOUTHWASH 300ML BOTTLE 15 ML PO (08:29)
[2023-12-28] MEDS: ACYCLOVIR 400MG TAB 400 MG PO (08:29)
[2023-12-28] MEDS: BISOPROLOL 5MG TABLET 10 MG PO (08:29)
[2023-12-28] MEDS: FENOFIBRATE 134MG CAPSULE 134 MG PO (08:29)
[2023-12-28] MEDS: CHOLECALCIFEROL 1,000 UNITS (25MCG) TABLET 50 MCG PO (08:29)
[2023-12-28 08:39] LABS: MANUAL DIFFERENTIAL MANUAL DIFFERENTIAL (MANUAL DIFF)
[2023-12-28 09:08] LABS: C-Reactive Protein 24.3 mg/L (0-4)
--- NOTE | 2023-12-28 09:51 | P.PN_ITS ---
Subjective *Date: 12/28/23 *Time: 13:36 Interval history: No acute respiratory vents overnight. Continue to remain on room air. Admits improving sore throat Pulmonology Exam Inpatient Vital signs and Labs for Last 24 Hours: Temp Pulse Resp BP Pulse Ox O2 Del Method O2 Flow Rate 97.6 F 90 14 156/89 H 97 Room Air 2 12/28/23 07:40 12/28/23 07:40 12/28/23 07:40 12/28/23 07:40 12/28/23 07:40 12/28/23 09:00 12/24/23 12:00 Laboratory Results - last 24 hr 12/25/23 14:00: EBV Capsid Ag IgG Ab 566.0 H, EBV Capsid Ag IgM Ab <36.0, EBV Nuclear Ag IgG Ab 417.0 H, EBV Interpretation Comment 12/27/23 05:53: Total Counted 100, Neutrophils % (Manual) 5 L, Lymphocytes % (Manual) 75 H, Monocytes % (Manual) 19 H, Eosinophils % (Manual) 1, Platelet Estimate Moderate increase, Target Cells 1+, [place] Cells 1+ 12/27/23 11:09: POC Glucose 247 H 12/27/23 16:23: POC Glucose 241 H 12/27/23 20:25: POC Glucose 224 H 12/28/23 05:04: POC Glucose 113 H 12/28/23 07:20: WBC 13.3 H D, RBC 4.82, Hgb 14.4, Hct 46.5, MCV 96.6, MCH 29.9, MCHC 31.0 L, RDW 14.5, Plt Count 657 H, MPV 9.1, Neut % (Auto) 24.4 L, Lymph % (Auto) 61.4 H, [place] % (Auto) 11.3 H, Eos % (Auto) 0.3, Baso % (Auto) 2.5 H, Neut # (Auto) 3.3, Lymph # (Auto) 8.2 H, [place] # (Auto) 1.5 H, Eos # (Auto) 0.0, Baso # (Auto) 0.3 H, Sodium 139, Potassium 3.1 L, Chloride 104, Carbon Dioxide 30, Anion Gap 8.1, BUN 9 D, Creatinine 0.60, Estimated Creat Clear 170, Estimated GFR 109, Est GFR ( Amer) 131, Glucose 146 H, Calcium 9.1, Magnesium 2.0 D, Total Bilirubin 0.6, AST 34 D, ALT 27 D, Alkaline Phosphatase 83, C- Reactive Protein 24.3 H, Total Protein 7.5 D, Albumin 3.8 D, Globulin 3.7 H, Albumin/Globulin Ratio 1.0 L Temp Pulse Resp BP Pulse Ox O2 Del Method O2 Flow Rate 98.2 F 110 H 18 143/73 H 90 L Room Air 2 12/24/23 08:00 12/24/23 08:00 12/24/23 08:00 12/24/23 08:00 12/24/23 09:52 12/24/23 09:52 12/24/23 08:00 Laboratory Results - last 24 hr 12/23/23 08:35: Procalcitonin 0.113 12/23/23 11:55: WBC 19.3 H D, RBC 4.74, Hgb 14.6, Hct 45.3, MCV 95.4, MCH 30.8, MCHC 32.3, RDW 14.6, Plt Count 483 H, MPV 8.8, Neut % (Auto) 72.1, Lymph % (Auto) 17.0, [place] % (Auto) 9.0, Eos % (Auto) 0.4, Baso % (Auto) 1.6, Neut # (Auto) 13.9 H, Lymph # (Auto) 3.3, [place] # (Auto) 1.7 H, Eos # (Auto) 0.1, Baso # (Auto) 0.3 H, Total Counted 100, Neutrophils % (Manual) 78 H, Lymphocytes % (Manual) 20, Monocytes % (Manual) 1 L, Eosinophils % (Manual) 1, Nucleated RBCs 2, Platelet Estimate Slight increase, RBC Morphology Normal, PT 10.6, INR 0.94, APTT 32.4 H, VBG pH 7.34, VBG pCO2 34.5 L, VBG pO2 41.2 H, VBG HCO3 18.1 L, VBG Total CO2 19.2 L, VBG O2 Saturation 78.4 H, VBG Base Excess -7.7 L, VBG Lactic Acid 1.5, Sodium 135 L, Potassium 3.4 L, Chloride 100, Carbon Dioxide 19 L, Anion Gap 19.4 H, BUN 6 L D, Creatinine 0.60 D, Estimated Creat Clear 169, Estimated GFR 109, Est GFR ( Amer) 131 D, Glucose 224 H, Calcium 8.5, Total Bilirubin 0.6, AST 33, ALT 23, Alkaline Phosphatase 105, Troponin I < 0.01, Total Protein 7.2, Albumin 3.9, Globulin 3.3 H, Albumin/Globulin Ratio 1.2 12/23/23 12:06: SARS-CoV-2 (PCR) Not detected, Influenza A Untype (PCR) Not detected, Influenza Type B (PCR) Not detected 12/23/23 15:15: Troponin I < 0.01 12/23/23 17:53: Troponin I < 0.01 12/23/23 20:43: POC Glucose 225 H 12/24/23 05:35: POC Glucose 215 H 12/24/23 05:40: WBC 15.4 H, RBC 4.59, Hgb 14.0, Hct 45.9, MCV 100.1 H, MCH 30.4, MCHC 30.4 L, RDW 14.4, Plt Count 530 H, MPV 9.8, Neut % (Auto) 60.9, Lymph % (Auto) 25.9, [place] % (Auto) 10.7 H, Eos % (Auto) 0.6, Baso % (Auto) 1.9, Neut # (Auto) 9.4 H, Lymph # (Auto) 4.0, [place] # (Auto) 1.6 H, Eos # (Auto) 0.1, Baso # (Auto) 0.3 H, Sodium 138, Potassium 3.8, Chloride 107, Carbon Dioxide 20 L, Anion Gap 14.8, BUN 6 L, Creatinine 0.60, Estimated Creat Clear 172, Estimated GFR 109, Est GFR ( Amer) 131, Glucose 197 H, Calcium 8.1 L, Vancomycin Trough 12.4 H 12/24/23 08:47: Vancomycin Peak 38.6 I & O for Labs for Last 24 Hours: Intake & Output 12/25/23 12/26/23 12/27/23 12/28/23 23:59 23:59 23:59 23:59 Intake Total 3356 / 3777 981 / 1331 1760 / 2060 540 / 540 Output Total 0 / 0 0 / 0 0 / 0 0 / 0 Balance 3356 / 3777 981 / 1331 1760 / 2060 540 / 540 Weight 202 lb 6.15 oz 201 lb 12.8 oz 198 lb 3 oz 198 lb 5 oz Intake & Output 12/21/23 12/22/23 12/23/23 12/24/23 23:59 23:59 23:59 23:59 Intake Total 360 / 810 1892 / 1892 Output Total 0 / 0 0 / 0 Balance 360 / 810 1892 / 1892 Weight 198 lb 9 oz 200 lb 11.2 oz Microbiology Reports for the Last 24 Hours: Microbiology 12/23/23 11:55 Blood Blood Culture - Preliminary NO GROWTH AFTER 4 DAYS 12/23/23 11:55 Blood Blood Culture - Preliminary NO GROWTH AFTER 4 DAYS Constitutional: Present moderate distress Head: Present normocephalic and atraumatic ENT: Present normal exam, normal oropharynx and mucous membranes moist Neck: Present normal inspection and full ROM Respiratory: Present able to speak in complete sentences; Absent prolonged expiratory phase, respiratory distress, wheezes or diminished air movement Cardiac: Present S1/S2, Tachycardia and radial pulses present GI: Present soft and distention; Absent tenderness or guarding Rectal (female): Present deferred (female): Present deferred Skin: Present intact; Absent cyanosis or jaundice Neuro: Present alert, awake and oriented x 3 Extremities: Present normal inspection; Absent clubbing or cyanosis Psychiatric: Present normal affect and cooperative Assessment and Plan *Assessment and plan (1) Pneumonia: Status: Acute Category: Medical Code(s): J18.9 - Pneumonia, unspecified organism Plan Ms. Garcia is a 43-year-old female with reported history of diabetes mellitus hypertension asplenia and asthma presented here with worsening distress and pulmonary was called for further evaluation and management. Patient recently admitted to the hospital complaining of febrile episodes and worsening respiratory send the Tmax of 101.8 admitted to the hospital and was discharged home on ceftriaxone azithromycin on 12/21/2023. Chest x-ray from previous admission showed bilateral lower lobe infiltrates, right greater than left along with right upper lobe infiltrates concerning for multilobar pneumonia. CT chest on this admission no dense consolidative changes noted. Right upper lobe groundglass opacities noted. Neutrophilic prominent leukocytosis of admission, worsening from her recent admission. Febrile with a Tmax of 102.6 on this admission. She was initiated on vancomycin and Zosyn on this admission. Blood and sputum cultures from this admission pending. No growth on her recent admission. Normal respiratory breann. Nasal MRSA PCR pending. COVID-19 and flu PCR panel negative. On examination patient does not appear to be in any respiratory distress. On room air saturating 95%. Admits cough with scant productive phlegm. Denies any worsening respiratory distress. CT neck concerning for extensive cervical adenopathy. Also noted to have a right subcapital femoral 3. No evidence of peritonsillar abscess. Repeat blood cultures no growth 24 hours. Interval update: No acute respiratory vents overnight. Continue to remain on room air. ENT following for the noted cervical lymphadenopathy scheduled for biopsy as an outpatient basis. Concerning oral lesion, currently being treated for possible herpes infection per primary team. Swab pending. Off Tylenol for the last 24 hours, low-grade fevers at 99.2. Antibiotics changed levofloxacin yesterday, tolerating well. Echo normal LV systolic and diastolic function RV mildly dilated and hypokinetic. No no reported vegetations. Slight worsening leukocytosis. Thrombocytosis. Severe hypokalemia. Plan: Continue levofloxacin to complete a total of 7-day course from pulmonary standpoint. Follow the urine strep Legionella antigen # Thank you for involving pulmonary in this patient care. Will follow the patient in pulmonary clinic in 2 to 3 weeks postdischarge.
[2023-12-28 10:14] LABS: HSV-1 DNA Positive (Negative); HSV-2 DNA Negative (Negative)
[2023-12-28 10:31] LABS: Eosinophils % 1 % (0-3); Lymphocytes % 82 % (10-50); Monocytes % 5 % (2-9); Neutrophils % 12 % (42-76); Total Cells Counted 100
[2023-12-28 10:32] LABS: Platelet Estimate Moderate Increase; RBC Morphology Normal
--- NOTE | 2024-01-01 14:46 | CARE MANAGER ---
Contacted patient related to hospital discharge. She states she still feels bed. She is short of breath. Some symptoms have improved, but not much. She has taken her new medications and is aware of follow up appointments. Discussed seeing PCP sooner if continues to feel as bad. Denies questions or concerns. KARINA Nunez
== END 2023-12-28 10:33 | disposition home or self-care (01) | DRG 194 ==
LOC: ER 12:23 → 2ND 12:25
PROVIDERS: Internal Medicine; Internal Medicine Adolescent Medicine; Nurse Practitioner; Admitting Provider Internal Medicine; Emergency Provider Student in an Organized Health Care Education/Training Program; PCP Nurse Practitioner Family; Visit Provider Internal Medicine
DX: J18.9 Pneumonia, unspecified organism; B00.2 Herpesviral gingivostomatitis and pharyngotonsillitis; E11.649 Type 2 diabetes mellitus with hypoglycemia without coma; Z79.4 Long term (current) use of insulin; Z79.899 Other long term (current) drug therapy; Z90.81 Acquired absence of spleen; E87.6 Hypokalemia; Z86.16 Personal history of COVID-19; I10 Essential (primary) hypertension; J02.0 Streptococcal pharyngitis
CPT/HCPCS: 36410; 36415; 70491; 71250; 80048; 80053; 80202; 82803; 82962; 83735; 84145; 84484; 85007; 85025; 85027; 85610; 85730; 86140; 86318; 86664; 86665; 87040; 87081; 87529; 87581; 87632; 87635; 87636; 87798; 87899; 93005; 93306; 99251; 99291; J0131; J0456; J0696; J1100; J1644; J1885; J1956; J2543; J7030; J7050; J7120; Q9967

== ENCOUNTER 2024-01-02 12:03 | Emergency (ER) | payer BC, SELFPAY ==
[2024-01-02] VITALS (10 sets, daily range): BP systolic 109–144; BP diastolic 71–89; PULSE 98–128; RESP 18; TEMP 36.6; O2SAT 92–100; BMI 30.7
[2024-01-02] MEDS: LACTATED RINGERS 1000ML 1,000 ML 999 ML IV (12:31)
[2024-01-02] MEDS: ONDANSETRON 4MG/2ML VIAL 4 MG IV (12:31)
--- NOTE | 2024-01-02 12:32 | HMH.EDGENADL ---
Discharge Plan Disposition Patient Disposition: Home, Self-Care Condition: Fair Prescriptions Prescriptions: New ondansetron 4 mg tablet,disintegrating 4 mg PO Q6H PRN (Reason: nausea and vomiting) 4 Days Qty: 16 0RF promethazine 25 mg tablet 25 mg PO Q6H PRN (Reason: sedation) 3 Days Qty: 12 0RF No Action gabapentin 300 mg capsule 300 mg PO BIDP PRN (Reason: Neuropathic Pain) bisoprolol fumarate 10 MG tablet 10 mg PO DAILY ferrous sulfate [FeroSul] 325 mg (65 mg iron) tablet 325 mg PO Q48H Patient Comments: TAKE 1 TABLET BY MOUTH EVERY OTHER DAY cholecalciferol (vitamin D3) [Vitamin D3] 125 mcg (5,000 unit) Tablet 125 mcg PO DAILY triamterene-hydrochlorothiazid 37.5-25 mg tablet 1 tab PO DAILYP PRN (Reason: Edema) Patient Comments: TAKE 1 TABLET BY MOUTH ONCE DAILY NEEDED FOR EDEMA albuterol sulfate 90 mcg/actuation HFA aerosol inhaler 2 puff INHALATION Q4HP PRN (Reason: Shortness Of Breath) Patient Comments: INHALE 2 PUFFS BY MOUTH EVERY 4 TO 6 HOURS NEEDED Mounjaro 10 mg/0.5 mL pen injector 10 mg SQ WEEKLY Patient Comments: INJECT 1 SYRINGE SUBCUTANEOUSLY ONCE A WEEK diazepam [Valium] 10 mg tablet 10 mg PO BIDP PRN (Reason: anxiety) insulin lispro [Humalog KwikPen Insulin] 100 unit/mL insulin pen 10 unit SQ TID Patient Comments: Per patient, only takes 20 unit dose with meals - skips if skipped meal desvenlafaxine succinate [Pristiq] 100 mg tablet extended release 24 hr 100 mg PO DAILY Auvelity 45-105 mg tablet, IR and ER, biphasic 1 tab PO BID insulin glargine U-300 conc [Toujeo Max U-300 SoloStar] 300 unit/mL (3 mL) insulin pen 10 unit SQ HS Patient Comments: INJECT 62 UNITS SUBCUTANEOUSLY ONCE DAILY DIRECTED fenofibrate 160 mg tablet 160 mg PO DAILY Patient Comments: TAKE 1 TABLET BY MOUTH ONCE DAILY rosuvastatin 20 mg Tablet 20 mg PO DAILY acyclovir 400 mg Tablet 400 mg PO TID 3 Days Qty: 9 0RF levofloxacin 750 mg Tablet 750 mg PO 1100 3 Days Qty: 3 0RF Magic Mouthwash [Magic Mouthwash;300ml Botttle] 15 ml PO QID 5 Days Qty: 0 0RF Rx Instructions: send with bottle from inpatient setting lidocaine HCl 2 % Solution 15 ml PO QIDP PRN (Reason: Mouth Irritation) 5 Days Qty: 100 0RF potassium chloride [Klor-Con M10] 10 mEq Tablet,Er Particles/Crystals 30 meq PO BIDL 3 Days Qty: 18 0RF dexamethasone 6 mg tablet 6 mg PO DAILY 2 Days Qty: 2 0RF Referrals Follow up/Referrals: Diamond Kramer APRN [Primary Care Provider] - See instructions Activity Restrictions/Add. Instructions Additional Instructions/Restrictions: You have been evaluated in the ED for your complaints. You may follow-up with your PCP in the next 3 to 5 days. Please return to ED for any new or worsening symptoms. I have written for [facility] to assist with your nausea and vomiting. Please take this as needed. Clinical Impressions Clinical Impression: Nausea & vomiting, Viral syndrome Instructions Patient Instructions: DI for Diarrhea and Traveler's Diarrhea -- Adult, DI for Diarrhea and Traveler's Diarrhea -- Child, DI for Nausea -- Adult, DI for Nausea -- Child Print Language Print Language: Wolof Discharge ED Provider: Micah Carbajal Adult HPI General Chief complaint: Nausea/Vomiting/Diarrhea Stated complaint: vomiting Time Seen by Provider: 01/02/24 12:32 Mode of Arrival: Ambulatory Source of Information: Patient Limitations: No Limitations Description of Symptoms (Recalled from ER Triage Doc. by RN): PT REPORTS ONGOING SORE THROAT AND DIFFICULTY SWALLOWING. REPORTS EMESIS X 3 TODAY. UNABLE TO KEEP FOOD OR FLUIDS DOWN. REPORTS FEELING UNWELL SINCE LAST ADMITTED History of Present Illness HPI narrative: 43-year-old female with past medical history significant for HTN, depression, DM 2, HLD, JHONY, recent diagnosis of pneumonia, finished antibiotics 2 days ago, presents today for evaluation concerning nausea and vomiting over the past few days. She also reports that she has had a sore throat and a degree of difficulty with swallowing however she is continue to tolerate oral intake. States that the difficulty swallowing has been going on since her admission. She denies have any fevers, chills, abdominal pain, dysuria, hematuria or any other associated symptoms at this time. Denies shortness of breath or chest pain. She does note that she was diagnosed with cervical adenopathy however does not report worsening pain at this time. Related Data Home Medications ?Medication ?Instructions ?Recorded ?Confirmed bisoprolol fumarate 10 mg tablet 10 mg PO DAILY 10/02/20 12/23/23 fenofibrate 160 mg tablet 160 mg PO DAILY 01/16/22 12/23/23 cholecalciferol (vitamin D3) 125 125 mcg PO DAILY 02/08/23 12/23/23 mcg (5,000 unit) tablet (Vitamin D3) ferrous sulfate 325 mg (65 mg 325 mg PO Q48H 02/08/23 12/23/23 iron) tablet (FeroSul) gabapentin 300 mg capsule 300 mg PO BIDP PRN Neuropathic Pain 03/05/23 12/23/23 rosuvastatin 20 mg tablet 20 mg PO DAILY 06/06/23 12/23/23 albuterol sulfate 90 mcg/actuation 2 puff inhalation Q4HP PRN 12/19/23 12/23/23 aerosol inhaler Shortness Of Breath desvenlafaxine succinate 100 mg 100 mg PO DAILY 12/19/23 12/23/23 tablet,extended release 24 hr (Pristiq) dextromethorphan IR 45 1 tab PO BID 12/19/23 12/23/23 mg-bupropion ER 105 mg biphasic tablet (Auvelity) diazepam 10 mg tablet (Valium) 10 mg PO BIDP PRN anxiety 12/19/23 12/23/23 insulin glargine U-300 conc 300 10 unit SQ HS 12/19/23 12/23/23 unit/mL (3 mL) subcutaneous pen (Toujeo Max U-300 SoloStar) insulin lispro 100 unit/mL 10 unit SQ TID 12/19/23 12/23/23 subcutaneous pen (Humalog KwikPen (U-100) Insulin) tirzepatide 10 mg/0.5 mL 10 mg SQ WEEKLY 12/19/23 12/23/23 subcutaneous pen injector (Mounjaro) triamterene 37.5 1 tab PO DAILYP PRN Edema 12/19/23 12/23/23 mg-hydrochlorothiazide 25 mg tablet Previous Rx's ?Medication ?Instructions ?Recorded Magic Mouthwash [Magic 15 ml PO QID 5 days ##0 12/28/23 Mouthwash;300mL Botttle] acyclovir 400 mg tablet 400 mg PO TID 3 days #9 tabs 12/28/23 dexamethasone 6 mg tablet 6 mg PO DAILY 2 days #2 tabs 12/28/23 levofloxacin 750 mg tablet 750 mg PO 1100 3 days #3 tabs 12/28/23 lidocaine HCl 2 % mucosal solution 15 ml PO QIDP PRN Mouth Irritation 12/28/23 5 days #100 mL potassium chloride 10 mEq 30 meq (3 x 10 mEq) PO BIDL 3 days 12/28/23 tablet,extended #18 tabs release(part/cryst) (Klor-Con M) ondansetron 4 mg disintegrating 4 mg PO Q6H PRN nausea and 01/02/24 tablet vomiting 4 days #16 tabs promethazine 25 mg tablet 25 mg PO Q6H PRN sedation 3 days 01/02/24 #12 tabs Allergies Allergy/AdvReac Type Severity Reaction Status Date / Time No Known Allergies Allergy Verified 11/05/23 16:07 [facility] Disclaimer: The information contained in this section may have been updated after the patient was seen, as this information can be updated by other users. Medical History (Updated 01/02/24 @ 15:25 by Micah Carbajal DO) Pneumonia Strep throat COVID-19 Bacteremia Asplenia Fever Acute hypokalemia Cough Acute viral syndrome General weakness Leukocytosis COVID-19 Hypertension Gastroenteritis Acute viral syndrome Grief Depression Migraine Diabetes mellitus, type 2 Hyperlipidemia Generalized anxiety disorder Type 2 diabetes mellitus Diabetes mellitus Surgical History (Updated 01/01/24 @ 00:00 by Fabian Solares) History of splenectomy History of cholecystectomy History of appendectomy Family History , [employer]) Diabetes Father Grandfather FHx: mental illness Mother Cancer Grandmother Social History Smoking Status: Never smoker second hand exposure: No alcohol intake: never substance use type: denies use current occupational status: employed and other details: she is in the process of getting a job; she is interviewing Travel in the last 8 weeks: None adopted: No caregiver/support person: Yes (she takes care of her grand-daughter) foster care: No household members: spouse housing: house marital status: number of children: 1 number of grandchildren: 1 education level: high school service: No fdc: No current occupation: [employer] current occupational exposures/hazards: No Hx Recent Travel: No sexually active: Yes caffeine: Yes physical activity: none working smoke detector in home: Yes fire extinguisher in home: Yes carbon monox detector in home: No firearms in home: Yes firearms unloaded and locked: Yes do you feel safe at home: Yes victim of physical abuse: No victim of emotional abuse: No victim of sexual abuse: No ROS Obtained: Yes All systems reviewed & no additional complaints except as documented Physical Exam General General appearance: alert and in no apparent distress Head Head exam: atraumatic and normocephalic Eye Eye exam: Present normal appearance, PERRL and EOMI ENT ENT exam: Present normal oropharynx and mucous membranes dry; Absent mucous membranes moist Neck Neck exam: Present full ROM; Absent meningismus Respiratory Respiratory exam: Absent respiratory distress, wheezes, stridor or accessory muscle use Cardiovascular Cardiovascular exam: Present normal rhythm and tachycardia Abdominal Exam Abdominal exam: Present soft; Absent distention, tenderness, guarding, rebound or rigidity Neurological Exam Neurological exam: Present alert, oriented X3 and CN II-XII intact; Absent motor sensory deficit Psychiatric Psychiatric exam: Present normal affect and normal mood Skin Skin exam: Present warm and dry Medical Decision Making Medical Records Medical records reviewed: Yes I reviewed the patient's medical records. Solo Inquiry Pt receiving controlled substance: No Solo was queried for this patient: No Vital Signs: 01/02/24 12:05 01/02/24 12:28 01/02/24 12:31 Temperature 97.8 F Temperature Source Oral Pulse Rate 124 H 125 H Pulse Rate [Radial] 128 H Respiratory Rate 18 Blood Pressure 122/81 Blood Pressure [Right Arm] 116/89 Blood Pressure Mean [Right Arm] 98 Blood Pressure Source [Right Arm] Automatic Cuff Blood Pressure Position [Right Arm] Sitting 02 Sat by Pulse Oximetry 98 96 94 L Oxygen Delivery Method Room Air 01/02/24 13:00 01/02/24 13:30 01/02/24 14:00 Temperature Temperature Source Pulse Rate 115 H 114 H 115 H Pulse Rate [Radial] Respiratory Rate Blood Pressure 137/87 144/87 H 127/77 Blood Pressure [Right Arm] Blood Pressure Mean [Right Arm] Blood Pressure Source [Right Arm] Blood Pressure Position [Right Arm] 02 Sat by Pulse Oximetry 93 L 94 L 99 Oxygen Delivery Method Room Air 01/02/24 14:30 Temperature Temperature Source Pulse Rate 99 H Pulse Rate [Radial] Respiratory Rate Blood Pressure 109/71 L Blood Pressure [Right Arm] Blood Pressure Mean [Right Arm] Blood Pressure Source [Right Arm] Blood Pressure Position [Right Arm] 02 Sat by Pulse Oximetry 92 L Oxygen Delivery Method Lab Data Lab Results 01/02/24 12:18: WBC 11.6 H, RBC 4.55, Hgb 13.9, Hct 45.3, MCV 99.6 H, MCH 30.5, MCHC 30.6 L, RDW 14.8, Plt Count 651 H, MPV 9.1, Neut % (Auto) 42.0, Lymph % (Auto) 42.0, [place] % (Auto) 13.0 H, Eos % (Auto) 1.2, Baso % (Auto) 1.7, Neut # (Auto) 4.9, Lymph # (Auto) 4.9 H, [place] # (Auto) 1.5 H, Eos # (Auto) 0.1, Baso # (Auto) 0.2, Sodium 135 L, Potassium 4.2, Chloride 104, Carbon Dioxide 24, Anion Gap 11.2, BUN 15, Creatinine 0.60, Estimated Creat Clear 163, Estimated GFR 109, Est GFR ( Amer) 131, Glucose 383 H, Lactate 2.7 H, Calcium 10.3 H, Total Bilirubin 0.7, AST 38 H, ALT 34, Alkaline Phosphatase 108, Total Protein 7.4, Albumin 3.8, Globulin 3.6 H, Albumin/Globulin Ratio 1.1, Lipase 101, Serum HCG, Qual Negative 01/02/24 12:56: SARS-CoV-2 (PCR) Not detected, Influenza A Untype (PCR) Not detected, Influenza Type B (PCR) Not detected 01/02/24 12:18 01/02/24 12:18 Orders (Tests/Meds): ED MEDICATIONS Generic Name Dose Route Start Last Admin Trade Name Freq PRN Reason Stop Dose Admin Sodium Chloride 1,000 mls @ 999 mls/hr 01/02/24 14:38 01/02/24 14:41 Sod Chlor 0.9% 1000ml Bag IV 01/02/24 15:38 999 mls/hr .Q1H1M ONE Administration Sodium Chloride 10 ml 01/02/24 12:28 Sodium Chloride 0.9% 10ml Flush Syringe IV 02/01/24 12:27 NEEDED PRN Maintain IV Site Discontinued Medications Generic Name Dose Route Start Last Admin Trade Name Chris PRN Reason Stop Dose Admin Acetaminophen 1,000 mg 01/02/24 12:59 01/02/24 13:00 Acetaminophen 1,000mg/100ml Vial IV 01/02/24 13:00 1,000 mg ONCE ONE Administration Lactated Ringer's 1,000 mls @ 999 mls/hr 01/02/24 12:27 01/02/24 12:31 Lactated Ringer's 1000 Ml Bag IV 01/02/24 13:27 999 mls/hr .Q1H1M ONE Administration Ondansetron HCl 4 mg 01/02/24 12:27 01/02/24 12:31 Ondansetron 4mg/2ml Vial IV 01/02/24 12:28 4 mg ONCE ONE Administration Ondansetron HCl 4 mg 01/02/24 12:38 01/02/24 13:02 Ondansetron 4mg/2ml Vial IV 01/02/24 12:39 Not Given ONCE ONE ORDERS Category Date Time Status CXR 2 view (NOT portable) [XR chest 2V] Stat Exams 01/02/24 13:30 Completed Complete Blood Count Auto Diff Stat Lab 01/02/24 12:18 Completed Comprehensive Metabolic Panel Stat Lab 01/02/24 12:18 Completed Lactic Acid Stat Lab 01/02/24 12:18 Completed Lipase Stat Lab 01/02/24 12:18 Completed Rapid PCR Covid and Flu A/B Stat Lab 01/02/24 12:56 Completed Serum [HCG Qualitative, Serum] Stat Lab 01/02/24 12:18 Completed Medical Decision Narrative: 43-year-old female with past medical history significant for HTN, depression, DM 2, HLD, JHONY, recent diagnosis of pneumonia, finished antibiotics 2 days ago, presents today for evaluation concerning nausea and vomiting over the past few days. She also reports that she has had a sore throat and a degree of difficulty with swallowing however she is continue to tolerate oral intake. States that the difficulty swallowing has been going on since her admission. She denies have any fevers, chills, abdominal pain, dysuria, hematuria or any other associated symptoms at this time. On assessment the patient was hemodynamically stable and in no acute distress. Afebrile. Her chest was clear to station bilaterally. She was tachycardic to the 120s. Oropharynx with dry mucous membranes. Abdomen was soft nondistended and nontender to palpation. She did have mild anterior cervical lymphadenopathy. Otherwise exam findings unremarkable differential diagnoses include but limited to gastritis, gastroenteritis, viral syndrome, electrolyte disturbance, among others. Patient's labwork today shows a WBC of 11.6, trending down from patient's most recent result on 12/27 at 13.3. Platelets at 651, similar to previous at 657. Her glucose today is 383. Lactate of 2.7. Negative screen. Lipase of 101. Negative COVID/influenza swab. Chest x-ray on my informal interpretation does show improvement of right upper lobe haziness from patient's recent pneumonia. Patient was reassessed and remains hemodynamically stable in no acute distress. She remains without abdominal discomfort. Has been able to tolerate oral intake. Will give her another bag of fluids given that she remains somewhat tachycardic. It is my suspicion that patient has a viral syndrome that is driving her symptoms today. Patient remains hemodynamically stable and in no acute distress after second bag of fluids. Her chest x-ray does show atelectasis on radiology report. No pneumonia is identified. Discussed with patient ED work-up and results and current plan to discharge. Provided with return to ED precautions and instructions concerning PCP follow-up. Patient verbalized understanding and agreement with plan. Subsequently discharged hemodynamically stable and in no acute distress. Critical Care Critical Care Time Critical Care Time: No
--- NOTE | 2024-01-02 12:33 | PC.NURSE ---
DR ZIEGLER AT BEDSIDE
[2024-01-02 12:34] LABS: Basophils # 0.2 K/mm3 (0-0.2); Basophils % 1.7 % (0.1-2.0); Eosinophils # 0.1 K/mm3 (0.0-0.4); Eosinophils % 1.2 % (0.1-12.0); Hematocrit 45.3 % (37.0-47.0); Hemoglobin 13.9 g/dL (12.2-16.2); Lymphocytes # 4.9 K/mm3 (0.7-4.5); Mean Corpuscular HGB Conc 30.6 g/dL (31.8-35.4); Mean Corpuscular Hemoglobin 30.5 pg (27.0-31.2); Mean Corpuscular Volume 99.6 fl (81-99); Mean Platelet Volume 9.1 fl (7.4-10.4); Monocytes # 1.5 K/mm3 (0.1-1.0); Neutrophils # 4.9 K/mm3 (1.8-7.8); Platelet Count 651 K/mm3 (142-424); Red Blood Count 4.55 M/mm3 (4.20-5.40); Red Cell Distribution Width 14.8 % (11.5-17.5); White Blood Count 11.6 K/mm3 (4.8-10.8)
[2024-01-02 12:39] LABS: Alanine Aminotransferase 34 U/L (12-78); Albumin Level 3.8 g/dl (3.5-5.0); Albumin/Globulin Ratio 1.1 (1.1-1.8); Alkaline Phosphatase 108 U/L (38-126); Anion Gap 11.2 mEq/L (5-15); Aspartate Amino Transferase 38 U/L (14-36); Bilirubin,Total 0.7 mg/dl (0.2-1.3); Blood Urea Nitrogen 15 mg/dl (7-17); Calcium 10.3 mg/dl (8.4-10.2); Carbon Dioxide 24 mmol/L (22.0-30.0); Chloride 104 mmol/L (98-107); Creatinine Clearance Estimated 163 mL/min (50-200); Estimated Glomerular Filt Rate 109 ml/min (>60); GFR (African American) 131 ML/MIN (>60); Globulin 3.6 g/dL (1.3-3.2); Glucose 383 mg/dl (74-100); Potassium 4.2 mmoL/L (3.5-5.1); Sodium 135 mmol/L (136-145); Total Protein,Serum 7.4 g/dl (6.3-8.2)
[2024-01-02 12:58] LABS: HCG Qualitative, Serum Negative (Negative)
[2024-01-02 12:59] LABS: Lipase 101 U/L (23-300)
[2024-01-02 13:00] LABS: Coronavirus 19, PCR Not Detected (NotDetected); Influenza A, PCR Not Detected (NotDetected); Influenza B, PCR Not Detected (NotDetected)
[2024-01-02] MEDS: ACETAMINOPHEN 1,000MG/100ML VIAL 1000 MG IV (13:00)
[2024-01-02 13:02] LABS: Lactic Acid 2.7 mmol/L (0.7-2.1)
--- NOTE | 2024-01-02 13:30 | XR_ITS ---
FINAL REPORT CLINICAL HISTORY: Recent PNA COMPARISON: 12/19/2023 FINDINGS: TWO-VIEW CHEST The heart size is normal. The mediastinum is normal. There are mild right base opacities, favor atelectasis. Left mid lung nodule is consistent with calcified granuloma as seen on prior CT. There is no pneumothorax. IMPRESSION: Mild right base atelectasis. Reviewed, Interpreted and Dictated by Castro Patel III, MD Transcribed by Mel Lugo Authenticated and . [facility]
[2024-01-02] MEDS: 0.9 % SODIUM CHLORIDE 1000ML 1,000 ML 999 ML IV (14:41)
[2024-01-02 16:42] LABS: Reflex Lactic Add Lactic Reflex
== END 2024-01-02 16:38 | disposition home or self-care (01) ==
PROVIDERS: Emergency Provider Emergency Medicine; PCP Nurse Practitioner Family
DX: R11.2 Nausea with vomiting, unspecified (principal); R13.10 Dysphagia, unspecified; J02.9 Acute pharyngitis, unspecified; B34.9 Viral infection, unspecified; E11.9 Type 2 diabetes mellitus without complications; I10 Essential (primary) hypertension; E78.5 Hyperlipidemia, unspecified
CPT/HCPCS: 71046; 80053; 83605; 83690; 84703; 85025; 87636; 96361; 96374; 96375; 99285; J0131; J2405; J7030; J7120

== ENCOUNTER 2024-02-19 18:11 | Outpatient (CLI) | payer BC, SELFPAY ==
--- NOTE | 2024-02-19 18:40 | XR_ITS ---
PROCEDURE INFORMATION: Exam: XR Chest Exam date and time: 02/19/2024 6:31 PM Age: 43 years old Clinical indication: Cough; Additional info: Chronic cough TECHNIQUE: Imaging protocol: Radiologic exam of the chest. Views: 2 views. Total images: 2 COMPARISON: CR XR CHEST 2V 01/02/2024 1:38 PM FINDINGS: Lungs: Fine linear right middle lobe atelectasis, improved from prior study. Lungs are otherwise clear and well expanded. No acute infiltrate, airspace consolidation or vascular congestion. No pulmonary edema. Pleural spaces: Unremarkable. No pleural effusion. No pneumothorax. Heart/Mediastinum: Unremarkable. No cardiomegaly. No mediastinal widening or hilar enlargement. Bones/joints: Unremarkable. Organs: Status post cholecystectomy. IMPRESSION: No radiographically acute cardiopulmonary process.
== END 2024-02-19 23:59 | disposition home or self-care (01) ==
LOC: RAD 18:13
PROVIDERS: PCP Internal Medicine; Visit Provider Internal Medicine
DX: R05.3 Chronic cough (principal)
CPT/HCPCS: 71046

== ENCOUNTER 2024-02-25 09:59 | Outpatient (CLI) | payer BC, SELFPAY ==
--- NOTE | 2024-02-25 09:59 | CT_ITS ---
PROCEDURE INFORMATION: Exam: CT Neck Without Contrast Exam date and time: 02/25/2024 9:59 AM Age: 43 years old Clinical indication: Condition or disease; Other: Lymph node swelling; Additional info: Lymph nodde swelling TECHNIQUE: Imaging protocol: Computed tomography of the neck without contrast. Radiation optimization: All CT scans at this facility use at least one of these dose optimization techniques: automated exposure control; mA and/or kV adjustment per patient size (includes targeted exams where dose is matched to clinical indication); or iterative reconstruction. COMPARISON: CT SOFT TISSUE NECK W CON 12/24/2023 8:[address] chest without contrast dated 12/23/2023. FINDINGS: Salivary glands: Normal. Glands are normal in size. Teeth: Dental amalgam creates artifact. Pharynx: Unremarkable. No significant tonsillar enlargement. Prevertebral and retropharyngeal spaces: Unremarkable. Larynx: Unremarkable. Thyroid: Unremarkable. Trachea: Unremarkable. Lungs: Previously seen upper lobe opacities have resolved. No evidence for pneumonia or pneumonitis at this time. Lymph nodes: Right neck supraclavicular lymph node measures 8 mm short axis diameter on axial image 77 and has decreased in size, previously measuring 12 mm short axis diameter. Adjacent smaller lymph node has also improved. Lymph node within the right lower neck jugular chain measures 6 mm short axis diameter on axial image 58 and previously measured 10 mm. Other smaller right neck jugular chain lymph nodes are demonstrated with improvement since November 2023. The previously seen lymph node in the left mid jugular chain currently measures 12 mm, 8 mm on axial image 65. This lymph node previously measured 14 mm, 12 mm in November 2023. Largest lymph node within the left upper neck jugular chain measures up to 17 mm, 12 mm on axial image 54. This lymph node previously measured 19 mm, 15 mm in November 2023. Other smaller left neck jugular chain lymph nodes demonstrate improvement as well. Bones/joints: Mild generalized bony degenerative changes. Bony structures appear otherwise unremarkable. Soft tissues: Unremarkable. Other findings: Limited study with motion artifact. IMPRESSION: 1. Bilateral lymphadenopathy demonstrates improvement since November 2023. 2. Persistent enlarged lymph node within the left upper neck jugular chain measuring 17 mm, 12 mm. This also demonstrates improvement. Recommend continued CT follow-up within 6 months. Possible reactive lymph nodes to infection or inflammatory process versus primary lymphoproliferative or metastatic malignancy. 3. Previously seen upper lobe pneumonia has resolved.
== END 2024-02-25 23:59 | disposition home or self-care (01) ==
LOC: RAD 09:59
PROVIDERS: PCP Internal Medicine; Visit Provider Nurse Practitioner
DX: R59.1 Generalized enlarged lymph nodes (principal)
CPT/HCPCS: 70490

== ENCOUNTER 2024-03-21 21:51 | Emergency (ER) | payer SELFPAY ==
[2024-03-21 21:55] VITALS: BP 141/99; PULSE 103; RESP 20; TEMP 36.6; O2SAT 97; BMI 28.8
--- OUTSIDE RECORDS SUMMARY | 2024-03-21 22:03 | XMS_ITS | Continuity of Care Document ---
Author Organization [facility], [facility] [place] Address [address] [place] [address] Care Team Providers Care Furnace Helper Name Role Phone JESS MAHMOOD Primary Care Provider [phone] Assessment No assessment recorded. 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 Procedures None recor ded. Surgeries None recor ded. Imaging None recor ded. Medication Orders None recor ded. Patient TargetsNo targets recorded. Patient InstructionsNo instructions recorded. Reason for Referral None Reported. Results Created Date Observation Date Name Description Value Unit Range Abnormal Flag Note LastModifiedBy Organization Detail LastModifiedTime 02/22/2002/19/2024 XR, chest , 2 view No observ ation record ed. [email or web address] Not Available 2023 11:35:26 Result Notes None recorded. Problems Name Problem SNOMED Code Status Onset Date Resolution Date Notes Provider Name and Address Organization Details Recorded Time High glucose level in blood 800316952 Active 2020 Not Available [facility] 3 06:18:45 Depressive disorder 49552272 Active 2023 BRIAN DE, DO [address] [place] [address], [address] [place] [address] 4 11:08:24 Anxiety 36895609 Active 2023 BRIAN DE, DO [address] [place] [address] , [facility] 4 11:08:34 Problem Notes None recorded. Procedures Surgical History Date Name Laterality Status Provider Name and Address Organization Details Recorded Time procedure on spleen completed [facility] 02/17/2021 09:40:19 procedure on gallbladder completed [facility] 02/17/2021 09:40:30 endoscopic procedure on spleen completed [facility] 02/17/2021 09:40:59 procedure on appendix completed [facility] 02/17/2021 09:41:08 Imaging Results None recorded. Procedure Notes None recorded. Medical Equipment None Reported. Allergies No known drug allergies Medications Name Sig Start Date Stop Date Status Note LastModified by Organization Details LastModified Time iron 65mg tab TAKE 1 TABLET BY MOUTH EVERY OTHER DAY active Not Available Not Available No t Available vitamin d3 (amina) 5,000iu tab TAKE 1 TABLET BY MOUTH ONCE DAILY active Not Available Not Available No t Available cyclobenzap rine 10 mg tablet 08/25 completed Not Available Not Available Not Available amoxicillin 500 mg capsule TAKE 1 CAPSULE BY MOUTH THREE TIMES DAILY FOR 10 DAYS 03/29 completed Not Available Not Available Not Available fluconazole 100 mg tablet TAKE ONE TABLET BY MOUTH A ONE-TIME DOSE. IF NEEDED MAY REPEAT ONE TABLET IN 7 DAYS. 06/27 completed Not Available Not Available Not Available atorvastati n 40 mg tablet TAKE 1 TABLET BY MOUTH ONCE DAILY FOR 90 DAYS active Not Available Not Available No t Available doxepin 50 mg capsule TAKE 2 CAPSULES BY MOUTH IN THE EVENING 06/27 completed Not Available Not Available Not Available promethazin e-DM 6.25 mg-15 mg/5 mL oral syrup TAKE 5 ML BY MOUTH EVERY 6 HOURS NEEDED FOR COUGH 08/25 completed Not Available Not Available Not Available nystatin 100,000 unit/mL oral suspension TAKE 5 ML BY MOUTH 4 TIMES DAILY 02/10 completed Not Available Not Available Not Available potassium chloride ER 10 mEq capsule,ext ended release 08/25 completed Not Available Not Available Not Available cefuroxime axetil 250 mg tablet 04/28 completed Not Available Not Available Not Available prednisolon e sodium phosphate 15 mg/5 mL (3 mg/mL) oral solution TAKE 20 ML BY MOUTH ONCE DAILY active Not Available Not Available No t Available azithromyci n 250 mg tablet TAKE 2 TABLETS BY MOUTH ON DAY 1, AND THEN TAKE 1 TABLET BY MOUTH ONCE A DAY ON DAY 2 THROUGH DAY 5 06/27 completed Not Available Not Available Not Available clomipramin e 75 mg capsule 02/17 completed Not Available Not Available Not Available ibuprofen 800 mg tablet TAKE 1 TABLET BY MOUTH THREE TIMES DAILY active Not Available Not Available No t Available alprazolam 1 mg tablet TAKE 1 TABLET BY MOUTH EVERY 6 HOURS NEEDED FOR ANXIETY 06/27 completed Not Available Not Available Not Available fluconazole 150 mg tablet TAKE 1 TABLET BY MOUTH NOW , THEN REPEAT DOSE IN 72 HOURS 02/10 completed Not Available Not Available Not Available sulfamethox azole 400 mg-trimetho prim 80 mg tablet 02/17 completed Not Available Not Available Not Available fluconazole 200 mg tablet TAKE 1 TABLET BY MOUTH ONCE DAILY 02/10 completed Not Available Not Available Not Available promethazin e 12.5 mg tablet TAKE 1 TABLET BY MOUTH TWICE DAILY active Not Available Not Available No t Available phenazopyri dine 200 mg tablet TAKE 1 TABLET BY MOUTH THREE TIMES DAILY AFTER A MEAL NEEDED active Not Available Not Available No t Available ondansetron HCl 4 mg tablet 04/28 completed Not Available Not Available Not Available clonazepam 0.5 mg tablet TAKE 1 TABLET BY MOUTH IN THE MORNING THEN TAKE 1-2 TABLETS AT BEDTIME. TAKE NEEDED FOR ANXIETY 06/27 completed Not Available Not Available Not Available rizatriptan 10 mg tablet TAKE ONE TABLET BY MOUTH AT ONSET OF MIGRAINE. IF SYMPTOMS PERSIST, MAY REPEAT DOSE IN 2 HOUR INTERVALS . DO NOT EXCEED 3 DOSES (30MG) IN A 24 HOUR PERIOD active Not Available Not Available No t Available hydroxyzine HCl 50 mg tablet 08/25 completed Not Available Not Available Not Available acyclovir 400 mg tablet TAKE ONE TABLET BY MOUTH THREE TIMES DAILY active Not Available Not Available No t Available sulfamethox azole 800 mg-trimetho prim 160 mg tablet 02/17 completed Not Available Not Available Not Available tramadol 50 mg tablet 08/25 completed Not Available Not Available Not Available bisoprolol fumarate 10 mg tablet TAKE 1 TABLET BY MOUTH ONCE DAILY active Not Available Not Available No t Available oxycodone-a cetaminophe n 5 mg-325 mg tablet 04/28 completed Not Available Not Available Not Available amoxicillin 875 mg tablet TAKE 1 TABLET BY MOUTH EVERY 12 HOURS 06/27 completed Not Available Not Available Not Available temazepam 15 mg capsule TAKE 1 CAPSULE BY MOUTH AT BEDTIME NIGHTLY NEEDED FOR SLEEP active Not Available Not Available No t Available OneTouch Ultra Test strips USE 1 STRIP TO CHECK GLUCOSE TWICE DAILY OR DIRECTED active Not Available Not Available No t Available benzonatate 100 mg capsule TAKE 1 CAPSULE BY MOUTH THREE TIMES DAILY NEEDED FOR COUGH 06/27 completed Not Available Not Available Not Available doxycycline monohydrate 100 mg capsule TAKE 1 CAPSULE BY MOUTH TWICE DAILY 02/10 completed Not Available Not Available Not Available cephalexin 500 mg capsule TAKE 1 CAPSULE BY MOUTH TWICE DAILY FOR 7 DAYS 08/25 completed Not Available Not Available Not Available Humulin R Regular U-100 Insulin 100 unit/mL injection solution 02/17 completed Not Available Not Available Not Available dexamethaso ne 4 mg tablet TAKE 1 AND 1/2 TABLET BY MOUTH EVERY DAY FOR 2 DAYS 02/10 completed Not Available Not Available Not Available clotrimazol e-betametha sone 1 %-0.05 % topical cream 08/25 completed Not Available Not Available Not Available promethazin e 25 mg tablet TAKE ONE TABLET BY MOUTH EVERY 6 HOURS NEEDED FOR sedation active Not Available Not Available No t Available gabapentin 300 mg capsule TAKE 1 CAPSULE BY MOUTH THREE TIMES DAILY active Not Available Not Available No t Available lidocaine HCl 2 % mucosal solution TAKE 15 ML BY MOUTH FOUR TIMES DAILY NEEDED FOR MOUTH IRRITATIO N 02/10 completed Not Available Not Available Not Available triamterene 37.5 mg-hydrochl orothiazide 25 mg tablet TAKE 1 TABLET BY MOUTH ONCE DAILY NEEDED FOR EDEMA active Not Available Not Available No t Available insulin syringe U-100 with needle 1 mL 31 gauge x 09/12 active Not Available Not Available Not Available ceftriaxone 500 mg solution for injection Take 500 mg by injection route. 2023 active Not Available Not Available Not Avai lable gabapentin 100 mg capsule TAKE 2 CAPSULES BY MOUTH TWICE DAILY 02/10 completed Not Available Not Available Not Available ergocalcife rol (vitamin D2) 1,250 mcg (50,000 unit) capsule TAKE 1 CAPSULE BY MOUTH ONCE A WEEK active Not Available Not Available No t Available clobetasol 0.05 % topical ointment 08/25 completed Not Available Not Available Not Available lorazepam 1 mg tablet TAKE 1/2 (ONE-HALF ) TABLET BY MOUTH NEEDED IN THE MORNING FOR ANXIETY AND 1 AT BEDTIME NEEDED active Not Available Not Available No t Available clomipramin e 50 mg capsule 02/17 completed Not Available Not Available Not Available diazepam 10 mg tablet TAKE 1 TABLET BY MOUTH TWICE DAILY NEEDED FOR ANXIETY active Not Available Not Available No t Available levofloxaci n 500 mg tablet TAKE 1 TABLET BY MOUTH ONCE DAILY 02/10 completed Not Available Not Available Not Available levofloxaci n 750 mg tablet TAKE ONE TABLET BY MOUTH EVERY DAY 02/10 completed Not Available Not Available Not Available albuterol sulfate HFA 90 mcg/actuati on aerosol inhaler INHALE 2 PUFFS BY MOUTH EVERY 4 TO 6 HOURS NEEDED active Not Available Not Available No t Available bromphenira mine-pseudo ephedrine-D M 2 mg-30 mg-10 mg/5 mL oral syrup TAKE 5 - 10 ML BY MOUTH 4 TIMES DAILY NEEDED 06/27 completed Not Available Not Available Not Available ondansetron 4 mg disintegrat ing tablet DISSOLVE ONE TABLET BY MOUTH EVERY 6 HOURS NEEDED FOR NAUSEA AND VOMITING active Not Available Not Available No t Available cefdinir 300 mg capsule TAKE ONE CAPSULE BY MOUTH TWICE DAILY 02/10 completed Not Available Not Available Not Available clotrimazol e 1 % topical cream APPLY CREAM TOPICALLY TWICE DAILY TO THE AFFECTED AND SURROUNDI NG AREAS OF SKIN IN THE MORNING AND EVENING 06/27 completed Not Available Not Available Not Available naproxen 500 mg tablet 08/25 completed Not Available Not Available Not Available diazepam 5 mg tablet TAKE 1 TABLET BY MOUTH AT BEDTIME NIGHTLY NEEDED FOR ANXIETY 06/27 completed Not Available Not Available Not Available amoxicillin 875 mg-potassiu m clavulanate 125 mg tablet TAKE 1 TABLET BY MOUTH EVERY 12 HOURS active Not Available Not Available No t Available amoxicillin 500 mg-potassiu m clavulanate 125 mg tablet TAKE 1 TABLET BY MOUTH EVERY 12 HOURS 06/27 completed Not Available Not Available Not Available insulin lispro (U-100) 100 unit/mL subcutaneou s pen INJECT 24 UNITS SUBCUTANE OUSLY THREE TIMES DAILY BEFORE MEAL(S) active Not Available Not Available No t Available azithromyci n 500 mg tablet TAKE ONE TABLET BY MOUTH ONCE DAILY FOR 2 DAYS; start ON DAY 2 of therapy. -- FINISH ALL MEDICINE -- 02/10 completed Not Available Not Available Not Available rosuvastati n 20 mg tablet TAKE 1 TABLET BY MOUTH ONCE DAILY active Not Available Not Available No t Available potassium chloride ER 10 mEq tablet,exte nded release(par t/cryst) TAKE THREE TABLETS BY MOUTH TWICE DAILY FOR 3 DAYS active Not Available Not Available No t Available nitrofurant oin monohydrate /macrocryst als 100 mg capsule TAKE 1 CAPSULE BY MOUTH EVERY 12 HOURS WITH FOOD 02/10 completed Not Available Not Available Not Available fenofibrate 160 mg tablet Take 1 tablet by mouth once daily 2023 active Not Available Not Available Not Avai lable FeroSul 325 mg (65 mg iron) tablet TAKE 1 TABLET BY MOUTH EVERY OTHER DAY active Not Available Not Available No t Available desvenlafax ine succinate ER 50 mg tablet,exte nded release 24 hr TAKE 1 TABLET BY MOUTH ONCE DAILY 06/27 completed Not Available Not Available Not Available desvenlafax ine succinate ER 100 mg tablet,exte nded release 24 hr TAKE 1 TABLET BY MOUTH DAILY FOR MOOD active Not Available Not Available No t Available cholecalcif everton (vitamin D3) 125 mcg (5,000 unit) tablet TAKE 1 TABLET BY MOUTH ONCE DAILY active Not Available Not Available No t Available Mucus Relief ER 600 mg tablet, extended release TAKE 1 TO 2 TABLETS BY MOUTH TWICE DAILY NEEDED FOR CONGESTIO N 08/25 completed Not Available Not Available Not Available icosapent ethyl 1 gram capsule TAKE 2 CAPSULES BY MOUTH TWICE DAILY active Not Available Not Available No t Available Xigduo XR 5 mg-1,000 mg tablet,exte nded release 02/17 completed Not Available Not Available Not Available Tresiba FlexTouch U-100 insulin 100 unit/mL (3 mL) subcutaneou s pen Inject 57 units every day by subcutane ous route for 90 days. 04/28 completed Not Available Not Available Not Available Trintellix 10 mg tablet TAKE 1 TABLET BY MOUTH ONCE DAILY 03/20 completed Not Available Not Available Not Available Bydureon BCise 2 mg/0.85 mL subcutaneou s auto-inject or 02/17 completed Not Available Not Available Not Available Ozempic 0.25 mg or 0.5 mg (2 mg/1.5 mL) subcutaneou s pen injector INJECT 0.5MG SUBCUTANE OUSLY ONCE A WEEK FOR 2 WEEKS 03/20 completed Not Available Not Available Not Available Toujeo Max U-300 SoloStar 300 unit/mL (3 mL) subcutaneou s insulin pen Inject 30 units every day by subcutane ous route as directed for 90 days. 2023 active Not Available Not Available Not Avai lable Dexcom G6 Transmitter device REPLACE EVERY 3 MONTHS active Not Available Not Available No t Available BD Kim 2nd Gen Pen Needle 32 gauge x active Not Available Not Available Not Available Gvoke HypoPen 1-Pack 1 mg/0.2 mL subcutaneou s auto-inject or INJECT 1 MG IN CASE OF EMERGENCY LOW BLOOD SUGAR AND CALL 911 active Not Available Not Available No t Available Ozempic 1 mg/dose (4 mg/3 mL) subcutaneou s pen injector INJECT 1MG SUBCUTANE OUSLY ONCE A WEEK 03/20 completed Not Available Not Available Not Available Mounjaro 7.5 mg/0.5 mL subcutaneou s pen injector INJECT 1 SYRINGE SUBCUTANE OUSLY ONCE A WEEK 01/08 completed Not Available Not Available Not Available Mounjaro 5 mg/0.5 mL subcutaneou s pen injector active Not Available Not Available Not Available Mounjaro 10 mg/0.5 mL subcutaneou s pen injector INJECT 1 SYRINGE SUBCUTANE OUSLY ONCE A WEEK active Not Available Not Available No t Available Auvelity 45 mg-105 mg tablet, extended release TAKE 1 TABLET BY MOUTH TWICE DAILY FOR DEPRESSIO N active Not Available Not Available No t Available Dexcom G7 Court Collections Officer USE DIRECTED active Not Available Not Available No t Available Dexcom G7 Sensor device CHANGE SENSOR EVERY 10 DAYS active Not Available Not Available No t Available Vitals Date Recorded Body height Body mass index (BMI) Body weight Heart rate Oxygen saturation Oxygen saturation in Arterial blood by Pulse oximetry Systolic blood pressure Diastolic blood pressure Provider Name and Address Organization Details Last Updated DateTime 4 167.64 cm 28.8 kg/m2 08215.2 4 g 114 /min 97 % 97 % 122 mm[Hg] 72 mm[Hg] Karly Hinkle [facility] 4 11:02:16 Social History Question Answer Notes LastModified by Organizat ion Details LastModified Time Tobacco Smoking Status Never Smoker Natividad Florentin nieto, [facility] 02/17/2021 09:40:01 What Is Your Level Of Alcohol Consumption? None [email or web address] Information not available 02/17/2021 What Is Your Level Of Caffeine Consumption? Moderate [email or web address] Information not available 02/17/2021 What Was The Date Of Your Most Recent Tobacco Screening? 09/22/2021 [email or web address] Information not available 09/22/2021 Do You Use Any Illicit Or Recreational Drugs? No [email or web address] Information not available 02/17/2021 Has Tobacco Cessation Counseling Been Provided? No Information not available 02/17/2021 Do You Or Have You Ever Used Any Other Forms Of Tobacco Or Nicotine? No [email or web address] Information not available 02/17/2021 Sex: Female Functional Status None recorded. Mental Status None recorded. Family History Relationship Description Onset Age of this Age Resolved Age Notes LastModified by Organization Details LastModified Time Father Diabetes mellitus Not available 2020 09:39:02 Father Family history of malignant neoplasm Not available 2020 09:39:45 Maternal Grandmother Family history of stroke Not available 2020 09:39:27 Medical History No medical history recorded. Gynecological HistoryNo gynecological history recorded. Obstetrics History GPAL:G 0 P 0 0 0 0 Immunizations Vaccine Type Date Status Provider Name and Address Organization Details Recorded Time Influenza, split virus, quadrivalent, preservative 03[facility]09[facility]2022 [facility] 14:56:25 Influenza, recombinant, quadrivalent, PF 02/15/2020 completed Honey Rodri [facility] 01/09/2024 14:56:25 Influenza, live, trivalent, intranasal 01/27/2013 completed Honey Rodri [facility] 01/09/2024 14:56:25 Tdap 08/28/2017 completed Honey Rodri [facility] 01/09/2024 14:56:25 Pneumococcal conjugate PCV 13 09/04/2017 completed Honey Rodri [facility] 01/09/2024 14:56:25 meningococcal MCV4P 08/22/2017 completed Honey Ri ck [facility] 01/09/2024 14:56:25 Influenza, split virus, quadrivalent, PF 12/31/2013 completed Honey Rodri [facility] 01/09/2024 14:56:25 Influenza, split virus, quadrivalent, PF 02/02/2019 completed Honey Rodri [facility] 01/09/2024 14:56:25 COVID-19, mRNA, LNP-S, PF, 100 mcg/0.5mL dose or 50 mcg/0.25mL dose 05/14/2020 completed Honey Rodri [facility] 01/09/2024 14:56:25 COVID-19, mRNA, LNP-S, PF, 100 mcg/0.5mL dose or 50 mcg/0.25mL dose 07/09/2020 completed Honey Rodri [facility] 01/09/2024 14:56:25 Past Encounters Encounter ID Performer Location Encounter Start Date Encounter Closed Date Diagnosis/Indication Diagnosis SNOMED-CT Code Diagnosis ICD10 Code [id number] BRIAN DE, DO [facility] [address] [place] [address] 02/11/2024 10:29:20 02/11/2024 11:25:08 History of splenectomy 248459260 Z90.81 Uncontroll ed type 2 diabetes mellitus 909995659 E11.65 Anxiety 13538976 F41.9 Depressive disorder 3548 9007 F32.A Chronic tonsillitis 9097 9004 J35.01 Polyneuropathy 19877669 G62.9 Illness 45615577 R69 Health Concerns Section Related Observation LastModified by Organization Detai ls LastModified Time None Recorded Concern Status LastModified by Organization Details LastModified Time None Recorded Payers Encounter Date Sequence Insurance Name Policy Number Policy Mccarty Covered Member ID Mccarty Member ID Guarantor Name 02/11/2024 1 [employer]: [employer] ([employer]) [id number] Lamine Garcia [id number] Olya Garcia Notes Date Note Type Note Provider Name and Address Organization Details Recorded Time 02/11/2024 text/html Patient is 43-year-old female here for new patient evaluation. She has poorly controlled diabetes, is on Mounjaro, basal bolus insulin, managed by channel rebuilder, last A1c was pretty high. She has history of splenectomy years ago She has significant depression and anxiety follows with mental health care providers on multiple medications, history of family trauma. Her main concern is of recurrent sickness and illness, she gets sick a lot, recently had severe tonsillitis with significant cervical lymphadenopathy on CT scan, also admitted for sepsis with pneumonia. Has been discharged, seems to be recovering, plans to follow-up with ENT to determine if she needs to have her tonsils taken out or not Works at [employer] records.. no smoke.no alcohol BRIAN SAUCEDA DO [facility] [place], [address], [facility] 02/11/2024 12:49:37 OBGyn Episode No OBEpisode recorded.
--- OUTSIDE RECORDS SUMMARY | 2024-03-21 22:03 | XMS_ITS | Encounter Summary ---
[facility] Organization [facility] Address [address] [place] [address] Care Team Providers Care Recenterer Name Role Phone Unavailable Primary Care Provider Unavailabl e Encounter Details Date Type Department Care Team (Late st Contact Info) Description 12/09/2013 11:26 AM EDT - 12/09/2013 11:59 PM EDT Hospital Encounter [facility] [address] [facility] [address] [place] [address] Riky Hart MD 1760 [facility] [address] [place] [address] Social History Tobacco Use Types Packs/Day Years Used Date Smoking Tobacco: Never Assessed Comments Unknown Sex and Gender Information Value Date Recorded Sex Assigned at Not on file Legal Sex Female 1:43 PM EDT Gender Identity Not on file Sexual Orientation Not on file documented as of this encounter Plan of Treatment Not on file documented as of this encounter Procedures Procedure Name Priority Date/Time Associated Diagnosis Comments ABO/RH Routine 12/09/2013 11:28 AM EDT CBC (NO DIFF) Routine 12/09/2013 11:28 AM EDT ANTIBODY SCREEN Routine 12/09/2013 11:28 AM EDT TSH Routine 12/09/2013 11:28 AM EDT documented in this encounter Results * TSH (12/09/2013 11:28 AM EDT) TSH 2.389 0.350 - 5.350 UIU/mL [facility] Comment: Specimens containing fluorescein can produce falsely depressed values with this assay. Patients undergoing fluorescein dye angiography should wait 72 hours post- treatment before testing. Blood specimen (specimen) 12/09/2013 11:28 AM EDT [facility] - 12/09/2013 1:44 PM EDT Specimen Type: Blood us Riky Hart MD LAB BLOOD ORDERABLES Final Resul t Performing Organization Address [facility] de Phone Number [facility] [address] [place] [address], * (ABNORMAL) CBC (No diff) (12/09/2013 11:28 AM EDT) WBC 11.19(H) 3.50 - 10.80 K/[facility] RBC 4.73 3.89 - 5.14 /[facility] Hemoglobin 14.1 11.5 - 15.5 g/dL [facility] Hematocrit 43.3 34.5 - 44.0 % [facility] MCV 91.5 80.0 - 99.0 fL [facility] MCH 29.8 27.0 - 31.0 pg [facility] MCHC 32.6 32.0 - 36.0 g/dL [facility] RDW-CV 13.8 11.3 - 14.5 % [facility] Platelets 381 150 - 450 K/[facility] Blood specimen (specimen) 12/09/2013 11:28 AM EDT [facility] - 12/09/2013 1:15 PM EDT Specimen Type: Blood us Riky Hart MD LAB BLOOD ORDERABLES Final Resul t Performing Organization Address [facility] de Phone Number [facility] [address] [place] [address], * Antibody Screen (12/09/2013 11:28 AM EDT) Antibody Screen Negative [facility] Blood specimen (specimen) 12/09/2013 11:28 AM EDT [facility] - 12/09/2013 1:54 PM EDT Specimen Type: Blood us Riky Hart MD BLOOD BANK TEST ORDERABLES Final Result Performing Organization Address City/[facility]/ZIP Co de Phone Number [facility] [address] [place] [address], * ABO/Rh (12/09/2013 11:28 AM EDT) ABORh O Rh Positive [facility] Blood specimen (specimen) 12/09/2013 11:28 AM EDT [facility] - 12/09/2013 1:54 PM EDT Specimen Type: Blood us Riky Hart MD BLOOD BANK TEST ORDERABLES Final Result Performing Organization Address [facility] [place] [address], documented in this encounter Visit Diagnoses Not on filedocumented in this encounter
--- OUTSIDE RECORDS SUMMARY | 2024-03-21 22:03 | XMS_ITS | Clinical Summary ---
Author Organization [facility] Address [address] [place] [address] Care Team Providers Care Motor Coach Chauffeur Name Role Phone Clyde Almodovar MD Primary Care Provider Family History Medical History Relation Name Comments Breast cancer Paternal Aunt 20's Ovarian cancer Neg Hx Relation Name Status Comments Paternal Aunt Social History Tobacco Use Types Packs/Day Years Used Date Smoking Tobacco: Never Assessed Abuse Screen Answer Date Recorded Unsafe at Home or Work/School Not on file Feels Threatened by Someone? Not on file 01/2023 Does Anyone Keep You from Co ntacting Others or Doint Things Outside the Home? Not on file 02/06/2023 Physical Sign of Abuse Present Not on file 1 Housing Stability Answer Date Recorded Current Living Arrangements Not on file 01/28 Potentially Unsafe Housing Conditions Not on ana e 02/06/2023 Family and Community Support Answer Anson e Recorded Help with Day-to-Day Activities Not on file 02/06/2023 Lonely or Isolated Not on file 02/06/2023 Employment Answer Date Recorded Do you want help finding or keeping work or a carolina b? Not on file 02/06/2023 Disabilities Answer Date Recorded Concentrating, Remembering, or Making Decisions Difficulty Not on file 02/06/2023 Doing Errands Independently Difficulty Not on fi le 02/06/2023 Education Answer Date Recorded Help with school or training? Not on file Preferred Language Not on file 02/06/2023 Comments No Sex and Gender Information Value Date Recorded Sex Assigned at Not on file Legal Sex Female 1:43 PM EDT Gender Identity Not on file Sexual Orientation Not on file Plan of Treatment Health Maintenance Due Date Last Done Comments ANNUAL PHYSICAL 1980 Annual Gynecologic Pelvic an d Breast Exam 1980 HEPATITIS C SCREENING 1980 MAMMOGRAM 11/23/2021 11/24/2019 INFLUENZA VACCINE 11/29/2023 01/27/2013 COVID-19 Vaccine (1 - 2023-2 5 season) 2023 TDAP/TD VACCINES (2 - Td or Tdap) 08/29/2027 018 Pneumococcal Vaccine 0-64 Aged Out No longer eligible based on patient's age to complete this topic Procedures Procedure Name Priority Date/Time Associated Diagnosis Comments MAMMO SCREENING DIGITAL TOMOSYNTHESIS BILATERAL W CAD Routine 11/24/2019 8:46 AM EDT Encounter for screening mammogram for breast cancer from Last 3 Months or Most Recently Relevant to Health Maintenance Results * Mammo Screening Digital Tomosynthesis Bilateral With CAD (11/24/2019 8:46 AM EDT) Anatomical Region Laterality Modality Breast N/A Mammography 11/26/2019 9:09 AM EDT Impressions 11/26/2019 9:09 AM EDT Negative bilateral mammogram. RECOMMENDATION: ??Continue annual screening mammography. BI-RADS CATEGORY 1, NEGATIVE. CAD was utilized. The standard false-negative rate of mammography is between 10% and 25%. Complex patterns or increased breast density will markedly elevate the false-negative rate of mammography. ?? A letter, in lay terminology, with the results of this exam will be mailed to the patient. ?? This report was finalized on 11/26/2019 9:[address] Mariely Carney MD. Narrative 11/26/2019 9:09 AM EDT HISTORY: Screening Mammography. BASELINE Low dose full field digital breast tomosynthesis imaging was performed with 2D and 3D acquisitions consisting of bilateral CC and MLO views. Examination is read in conjunction with computer aided detection. FINDINGS: ?? There are scattered areas of fibroglandular density. No suspicious masses, microcalcifications or ??areas of architectural distortion are present. Jeannette Centeno MD IMG MAMMOGRAPHY ORDERABLES Fi nal Result from Last 3 Months or Most Recently Relevant to Health Maintenance Insurance [facility] PPO Care Teams Motor Coach Chauffeur Relationship Specialty Start Date End Date Clyde Almodovar MD [address] [place] [address] [place] [address] PCP - General Family Medicine 11/24/19
--- OUTSIDE RECORDS SUMMARY | 2024-03-21 22:03 | XMS_ITS | Encounter Summary ---
[facility] Address [address] [place] [address] Care Team Providers Care Career Development Coordinator/Teacher Name Role Phone Unavailable Primary Care Provider Unavailabl e Encounter Details Date Type Department Care Team (Late st Contact Info) Description 04/02/2014 9:00 AM EST - 04/02/2014 11:59 PM EST Hospital Encounter [facility] [address] [facility] [address] [place] [address] Riky Hart MD 1760 [facility] [address] [place] [address] Social History Tobacco Use Types Packs/Day Years [...] Procedure Name Priority Date/Time Associated Diagnosis Comments ESTRADIOL Routine 04/02/2014 9:06 AM EST documented in this encounter Results * Estradiol (04/02/2014 9:06 AM EST) Estradiol 233 pg/mL [facility] Comment: DF by IF @ 04/02/2014 11:23 Males: ?0.0-52.0 pg/mL Adult Female: ?Follicular Phase ? 11.0-165.0 pg/mL ?Midcycle ?146.0-526.0 pg/mL ?Luteal Phase ? 33.0-196.0 pg/mL ?Postmenopausal ?ND-37.0 pg/mL Blood specimen (specimen) 04/02/2014 9:06 AM EST Narrative [facility] - 04/02/2014 11:23 AM EST Specimen Type: Blood us Riky Hart MD LAB BLOOD ORDERABLES Final Resul t [facility] [address] [place] [address], documented in this encounter Visit Diagnoses Not on filedocumented in this encounter
--- OUTSIDE RECORDS SUMMARY | 2024-03-21 22:03 | XMS_ITS | Encounter Summary ---
[facility] Address [address] [place] [address] Care Team Providers Care Surveillance Director Name Role Phone Unavailable Primary Care Provider Unavailabl e Encounter Details Date Type Department Care Team (Late st Contact Info) Description 02/03/2014 11:19 AM EDT - 02/03/2014 11:59 PM EDT Hospital Encounter [facility] [address] [facility] [address] [place] [address] Riky Hart MD 1760 [facility] [address] [place] [address] Social History Tobacco Use Types Packs/Day Years [...] Priority Date/Time Associated Diagnosis Comments ESTRADIOL Routine 02/03/2014 11:21 AM EDT documented in this encounter Results * Estradiol (02/03/2014 11:21 AM EDT) Estradiol 244 pg/mL [facility] Comment: DF by IF @ 02/03/2014 12:36 Males: ?0.0-52.0 pg/mL Adult Female: ?Follicular Phase ? 11.0-165.0 pg/mL ?Midcycle ?146.0-526.0 pg/mL ?Luteal Phase ? 33.0-196.0 pg/mL ?Postmenopausal ?ND-37.0 pg/mL Blood specimen (specimen) 02/03/2014 11:21 AM EDT Narrative [facility] - 02/03/2014 12:36 PM EDT Specimen Type: Blood us Riky Hart MD LAB BLOOD ORDERABLES Final Resul t [facility] [address] [place] [id number], documented in this encounter Visit Diagnoses Not on filedocumented in this encounter
--- OUTSIDE RECORDS SUMMARY | 2024-03-21 22:03 | XMS_ITS | Encounter Summary ---
[facility] Address [address] [place] [address] Care Team Providers Care Senior Network Security Engineer Name Role Phone Unavailable Primary Care Provider Unavailabl e Encounter Details Date Type Department Care Team (Late st Contact Info) Description 03/30/2014 10:28 AM EST - 03/30/2014 11:59 PM EST Hospital Encounter [facility] [address] [facility] [address] [place] [address] Riky Hart MD 1760 [facility] [address] [place] [address] Social History Tobacco Use Types Packs/Day Years [...] Priority Date/Time Associated Diagnosis Comments ESTRADIOL Routine 03/30/2014 10:34 AM EST documented in this encounter Results * Estradiol (03/30/2014 10:34 AM EST) Estradiol 102 pg/mL [facility] Comment: DF by IF @ 03/30/2014 11:33 Males: ?0.0-52.0 pg/mL Adult Female: ?Follicular Phase ? 11.0-165.0 pg/mL ?Midcycle ?146.0-526.0 pg/mL ?Luteal Phase ? 33.0-196.0 pg/mL ?Postmenopausal ?ND-37.0 pg/mL Blood specimen (specimen) 03/30/2014 10:34 AM EST Narrative [facility] - 03/30/2014 11:33 AM EST Specimen Type: Blood us Riky Hart MD LAB BLOOD ORDERABLES Final Resul t [facility] [address] [place] [address], documented in this encounter Visit Diagnoses Not on filedocumented in this encounter
--- OUTSIDE RECORDS SUMMARY | 2024-03-21 22:03 | XMS_ITS | Encounter Summary ---
[facility] Address [address] [place] [address] Care Team Providers Care Senior Statistical Programmer Name Role Phone Unavailable Primary Care Provider Unavailabl e Encounter Details Date Type Department Care Team (Late st Contact Info) Description 02/24/2014 10:55 AM EDT - 02/24/2014 11:59 PM EDT Hospital Encounter [facility] [address] [facility] [address] [place] [address] Riky Hart MD 1760 [facility] [address] [place] [address] Social History Tobacco Use Types Packs/Day Years [...] Priority Date/Time Associated Diagnosis Comments ESTRADIOL Routine 02/24/2014 10:56 AM EDT documented in this encounter Results * Estradiol (02/24/2014 10:56 AM EDT) Estradiol 30 pg/mL [facility] Comment: DF by IF @ 02/24/2014 18:18 Males: ?0.0-52.0 pg/mL Adult Female: ?Follicular Phase ? 11.0-165.0 pg/mL ?Midcycle ?146.0-526.0 pg/mL ?Luteal Phase ? 33.0-196.0 pg/mL ?Postmenopausal ?ND-37.0 pg/mL Blood specimen (specimen) 02/24/2014 10:56 AM EDT Narrative [facility] - 02/24/2014 6:18 PM EDT Specimen Type: Blood us Riky Hart MD LAB BLOOD ORDERABLES Final Resul t [facility] [address] [place] [id number], documented in this encounter Visit Diagnoses Not on filedocumented in this encounter
--- OUTSIDE RECORDS SUMMARY | 2024-03-21 22:03 | XMS_ITS | Continuity of Care Document ---
Author Organization [facility] Address [address] [place] [address] Care Team Providers Care Sheet Writer Name Role Phone JESS MAHMOOD Primary Care Provider [phone] Assessment No assessment recorded. Plan of Treatment Reminders Order Date Submit Date Provider Last Modified By Organization Details Last Modified Time Details Appointments RECHE CK 2023 02:00P M DR HOYT Not available Not available Not available RECHE CK 2023 01:45P M ERIC PRECIADO LINE MAINTAINER SECTION Not available Not available Not available DERMA TOLOG Y VISIT 2024 01:00P M OLIVER SCHMIDT MD Not available Not available Not available Lab CBC w/ auto diff [address] [facility], [address] [place] [address], [phone], 03/21/2024 12:13:55 CMP, serum or plasm a [address] [facility], [address] [place] [address], [phone], 03/21/2024 12:13:55 ESR (eryt hrocy te sedim entat ion rate) , blood [address] [facility], [address] [place] [address], [phone], 03/21/2024 12:13:55 ldh, serum or plasm a 2023 024 [email or web address] [facility], [address] [facility], [place], [address], 03/21/2024 12:13:[address]/on colog ist refer ral 2023 024 [email or web address] Leo Peter MD, [address] [facility], [facility] [address], [place], [address], 03/07/2024 13:05:43 Procedures None recor ded. Surgeries None recor ded. Imaging None recor ded. Medication Orders ceftr iaxon e 500 mg solut ion for injec tion 2023 [email or web address] Not available 03/07/2024 11:33:30 Augme ntin 875 mg-12 5 mg table t 2023 [facility], [address], [address], 03/07/2024 11:22:45 prome thazi ne 12.5 mg table t 2023 [facility], [address], [address], 03/07/2024 11:24:34 Patient TargetsNo targets recorded. Patient InstructionsNo instructions recorded. Reason for Referral Referring Physician: Brian Hoyt, Internal Medicine, Encounter Date: 03/07/2024 Results Created Date Observation Date Name Description Value Unit Range Abnormal Flag Note LastModifiedBy Organization Detail LastModifiedTime 02/22/20 24 02/19/2024 XR, chest , 2 view No observ ation record ed. [email or web address] Not Available 2023 11:35:26 Result Notes None recorded. Problems Name Problem SNOMED Code Status Onset Date Resolution Date Notes Provider Name and Address Organization Details Recorded Time High glucose level in blood 528874105 Active 2020 Not Available [facility] 3 06:18:45 Depressive disorder 60960544 Active 2023 BRIAN MORALES LL, DO [address] [place], [address] , [facility] 4 11:08:24 Anxiety 01127823 Active 2023 BRIAN ANDREW DE, DO [address] [place], [address] , [facility] 11:08:34 Problem Notes None recorded. Procedures Surgical History Date Name Laterality Status Provider Name and Address Organization Details Recorded Time procedure on spleen completed [facility] 02/17/2021 09:40:19 procedure on gallbladder completed [facility] 02/17/2021 09:40:30 endoscopic procedure on spleen completed [facility] 02/17/2021 09:40:59 procedure on appendix completed [facility] 02/17/2021 09:41:08 Imaging Results None recorded. Procedure [...] Not Available Not Available No t Available [employer] Ultra Test strips USE 1 STRIP TO [...] XR 5 mg-1,000 mg tablet,exte nded release 10/21 /2021 completed Not Available Not Available Not Available [...] 2nd Gen Pen Needle 32 gauge x 32 active Not Available Not Available Not Available [...] Not Available No t Available [employer] G7 Manager Community Relations USE DIRECTED active Not Available Not Available No t Available Dexcom G7 Sensor device CHANGE SENSOR EVERY 10 DAYS active Not Available Not Available No t Available Vitals Date Recorded Body height Body mass index (BMI) Body weight Heart rate Oxygen saturation Oxygen saturation in Arterial blood by Pulse oximetry Body temperature Systolic blood pressure Diastolic blood pressure Provider Name and Address Organization Details Last Updated DateTime 4 167.64 cm 28.4 kg/m2 36422.6 6 g 103 /min 96 % 96 % 98.7 [degF] 116 mm[Hg] 70 mm[Hg] Karly Hinkle [facility] 4 11:04:27 Social History Question Answer Notes LastModified by Organizat ion Details LastModified Time Tobacco Smoking Status Never [facility]oker [facility] 02/17/2021 09:40:01 What Is Your Level Of Alcohol Consumption? None Information not available 02/17/2021 What Is Your Level Of Caffeine Consumption? Moderate [email or web address] Information not available 02/17/2021 What Was The Date Of Your Most Recent Tobacco Screening? 09/22/2021 [email or web address] Information not available 09/22/2021 Do You Use Any Illicit Or Recreational Drugs? No [email or web address] Information not available 02/17/2021 Has Tobacco Cessation Counseling Been Provided? No [email or web address] Information not available 02/17/2021 Do You Or Have You Ever Used Any Other Forms Of Tobacco Or Nicotine? No [email or web address] Information not available 02/17/2021 Sex: Female Functional Status None recorded. Mental Status None recorded. Family History Relationship Description Onset Age of this Age Resolved Age Notes LastModified by Organization Details LastModified Time Father Diabetes mellitus Not available 2020 09:39:02 Father Family history of malignant neoplasm [email or web address] Not available 2020 09:39:45 Maternal Grandmother Family history of stroke [email or web address] Not available 2020 09:39:27 Medical History No medical history recorded. Gynecological HistoryNo gynecological history recorded. Obstetrics History GPAL:G 0 P 0 0 0 0 Immunizations Vaccine Type Date Status Provider Name and Address Organization Details Recorded Time Influenza, split virus, quadrivalent, preservative 03/09/2022 completed Honey Rodri [facility] 01/09/2024 14:56:25 Influenza, recombinant, quadrivalent, PF 02/15/2020 completed [facility] 01/09/2024 14:56:25 Influenza, live, trivalent, intranasal 01/27/2013 completed Honey Rodri [facility] 01/09/2024 14:56:25 Tdap 08/28/2017 completed Honey Rodri [facility] 01/09/2024 14:56:25 Pneumococcal conjugate PCV 13 09/04/2017 completed Honey Rodri [facility] 01/09/2024 14:56:25 meningococcal MCV4P 08/22/2017 completed [facility] 01/09/2024 14:56:25 Influenza, split virus, quadrivalent, PF 12/31/2013 completed Honey Rodri [facility] 01/09/2024 14:56:25 Influenza, split virus, quadrivalent, PF 02/02/2019 completed Honey Rodri [facility] 01/09/2024 14:56:25 COVID-19, mRNA, LNP-S, PF, 100 mcg/0.5mL dose or 50 mcg/0.25mL dose 05/14/2020 completed Honey Rodri [facility] 01/09/2024 14:56:25 COVID-19, mRNA, LNP-S, PF, 100 mcg/0.5mL dose or 50 mcg/0.25mL dose 07/09/2020 completed Honey Rodri [facility] 01/09/2024 14:56:25 Past Encounters Encounter ID Performer Location Encounter Start Date Encounter Closed Date Diagnosis/Indication Diagnosis SNOMED-CT Code Diagnosis ICD10 Code [id number] BRIAN MORALES LL, DO [facility] [address] [place] [address] 02/11/2024 10:29:20 02/11/2024 11:25:08 History of splenectomy 117549340 Z90.81 Uncontroll ed type 2 diabetes mellitus 006037759 E11.65 Anxiety 09056861 F41.9 Depressive disorder 3548 9007 F32.A Chronic tonsillitis 9097 9004 J35.01 Polyneuropathy 32931120 G62.9 Illness 81236326 R69 [id number] BRIAN MORALES LL, DO [facility] [address] [facility] [place] [address] 03/07/2024 10:53:49 03/07/2024 12:09:21 Chronic tonsillitis 72449859 J35.01 Cervical lymphadenopathy 194797331 R59.0 Uncontroll ed type 2 diabetes mellitus 329957024 E11.65 Abnormal weight loss 267 581318 R63.4 Health Concerns Section Related Observation LastModified by Organization Detai ls LastModified Time None Recorded Concern Status LastModified by Organization Details LastModified Time None Recorded Payers Encounter Date Sequence Insurance Name Policy Number Policy Mccarty Covered Member ID Mccarty Member ID Guarantor Name 03/07/2024 1 [employer]: MAG [employer] [facility] BLUE ACCESS (PPO) [id number] Lamine Garcia [id number] Olya Garcia Notes Date Note Type Note Provider Name and Address Organization Details Recorded Time 03/07/2024 text/html Patient is 43-year-old female here for acute visit, she has poorly controlled diabetes, has had recurrent infections, pneumonia, for which recently had hospitalization, she has this weird cervical lymphadenopathy, has been evaluated by ENT at [facility], follow-up CT looked improved, ENT doctor recommended tonsillectomy. This was scheduled for Marchhe has not had any biopsy,She has not done great, she is lost about 30 pounds since her hospitalization, her glucose remains on the high side. She feels tired feels lethargic, she has to take a nap every day at lunchtime. She has not had any fever, the last 24 hours she feels like her symptoms are worse, her neck pain is worse, swelling in her neck is worse she not really able to eat or drink anything without significant pain. She feels dehydrated BRIAN HOYT, DO [facility] [place], [address], [place] [facility] 03/07/2024 12:56:05 OBGyn Episode No OBEpisode recorded.
--- OUTSIDE RECORDS SUMMARY | 2024-03-21 22:03 | XMS_ITS | Encounter Summary ---
[facility] Address [address] [place] [address] Care Team Providers Care Computer Game Programmer Name Role Phone Unavailable Primary Care Provider Unavailabl e Encounter Details Date Type Department Care Team (Late st Contact Info) Description 03/02/2014 10:43 AM EST - 03/02/2014 11:59 PM EST Hospital Encounter [facility] [address] [facility] [address] [place] [address] Riky Hart MD [address] [facility] [address] [place] [address] Social History Tobacco Use Types Packs/Day Years [...] Priority Date/Time Associated Diagnosis Comments ESTRADIOL Routine 03/02/2014 10:46 AM EST documented in this encounter Results * Estradiol (03/02/2014 10:46 AM EST) Estradiol 85 pg/mL [facility] Comment: DF by IF @ 03/02/2014 15:03 Males: ?0.0-52.0 pg/mL Adult Female: ?Follicular Phase ? 11.0-165.0 pg/mL ?Midcycle ?146.0-526.0 pg/mL ?Luteal Phase ? 33.0-196.0 pg/mL ?Postmenopausal ?ND-37.0 pg/mL Blood specimen (specimen) 03/02/2014 10:46 AM EST Narrative [facility] - 03/02/2014 3:03 PM EST Specimen Type: Blood us Riky Hart MD LAB BLOOD ORDERABLES Final Resul t [facility] [address] [place] [address], documented in this encounter Visit Diagnoses Not on filedocumented in this encounter
--- OUTSIDE RECORDS SUMMARY | 2024-03-21 22:03 | XMS_ITS | Encounter Summary ---
[facility] Address [address] [place] [address] Care Team Providers Care Monitoring Tech Name Role Phone Unavailable Primary Care Provider Unavailabl e Encounter Details Date Type Department Care Team (Late st Contact Info) Description 03/04/2014 11:10 AM EST - 03/04/2014 11:59 PM EST Hospital Encounter [facility] [address] [facility] [address] [place] [address] Riky Hart MD [address] [facility] [address] [place] [address] Social History Tobacco Use Types Packs/Day Years [...] Priority Date/Time Associated Diagnosis Comments ESTRADIOL Routine 03/04/2014 11:13 AM EST documented in this encounter Results * Estradiol (03/04/2014 11:13 AM EST) Estradiol 179 pg/mL [facility] Comment: DF by IF @ 03/04/2014 21:43 Males: ?0.0-52.0 pg/mL Adult Female: ?Follicular Phase ? 11.0-165.0 pg/mL ?Midcycle ?146.0-526.0 pg/mL ?Luteal Phase ? 33.0-196.0 pg/mL ?Postmenopausal ?ND-37.0 pg/mL Blood specimen (specimen) 03/04/2014 11:13 AM EST Narrative [facility] - 03/04/2014 9:43 PM EST Specimen Type: Blood us Riky Hart MD LAB BLOOD ORDERABLES Final Resul t [facility] [address] [place] [address], documented in this encounter Visit Diagnoses Not on filedocumented in this encounter
--- OUTSIDE RECORDS SUMMARY | 2024-03-21 22:03 | XMS_ITS | Encounter Summary ---
[facility] Address [address] [place] [address] Care Team Providers Care Steward/Stewardess Deck Name Role Phone Unavailable Primary Care Provider Unavailabl e Encounter Details Date Type Department Care Team (Late st Contact Info) Description 03/23/2014 10:37 AM EST - 03/23/2014 11:59 PM EST Hospital Encounter [facility] [address] [facility] [address] [place] [address] Riky Hart MD [address] [facility] [address] [place] [address] Social History Tobacco Use Types Packs/Day Years [...] Priority Date/Time Associated Diagnosis Comments ESTRADIOL Routine 03/23/2014 10:44 AM EST documented in this encounter Results * Estradiol (03/23/2014 10:44 AM EST) Estradiol 17 pg/mL [facility] Comment: DF by IF @ 03/23/2014 11:32 Males: ?0.0-52.0 pg/mL Adult Female: ?Follicular Phase ? 11.0-165.0 pg/mL ?Midcycle ?146.0-526.0 pg/mL ?Luteal Phase ? 33.0-196.0 pg/mL ?Postmenopausal ?ND-37.0 pg/mL Blood specimen (specimen) 03/23/2014 10:44 AM EST Narrative [facility] - 03/23/2014 11:32 AM EST Specimen Type: Blood us Riky Hart MD LAB BLOOD ORDERABLES Final Resul t [facility] [address] [place] [address], documented in this encounter Visit Diagnoses Not on filedocumented in this encounter
--- OUTSIDE RECORDS SUMMARY | 2024-03-21 22:03 | XMS_ITS | Encounter Summary ---
[facility] Address [address] [place] [address] Care Team Providers Care Rail Car Operator Name Role Phone Unavailable Primary Care Provider Unavailabl e Encounter Details Date Type Department Care Team (Late st Contact Info) Description 01/29/2014 11:11 AM EDT - 01/29/2014 11:59 PM EDT Hospital Encounter [facility] [address] [facility] [address] [place] [address] Riky Hart MD [address] [facility] [address] [place] [address] Social History Tobacco Use Types Packs/Day Years [...] Priority Date/Time Associated Diagnosis Comments ESTRADIOL Routine 01/29/2014 11:13 AM EDT documented in this encounter Results * Estradiol (01/29/2014 11:13 AM EDT) Estradiol 84 pg/mL [facility] Comment: DF by IF @ 01/29/2014 12:41 Males: ?0.0-52.0 pg/mL Adult Female: ?Follicular Phase ? 11.0-165.0 pg/mL ?Midcycle ?146.0-526.0 pg/mL ?Luteal Phase ? 33.0-196.0 pg/mL ?Postmenopausal ?ND-37.0 pg/mL Blood specimen (specimen) 01/29/2014 11:13 AM EDT Narrative [facility] - 01/29/2014 12:41 PM EDT Specimen Type: Blood us Riky Hart MD LAB BLOOD ORDERABLES Final Resul t [facility] [address] [place] [id number], documented in this encounter Visit Diagnoses Not on filedocumented in this encounter
--- OUTSIDE RECORDS SUMMARY | 2024-03-21 22:03 | XMS_ITS | Encounter Summary ---
Author Organization [facility] Address [address] [place] [address] Care Team Providers Care Accounting Software Specialist Name Role Phone Clyde Almodovar MD Primary Care Provider Reason for Referral * Diagnostic Imaging (Routine) - Closed Specialty Diagnoses / Procedures Referred By Contac t Referred To Contact Radiology Diagnoses Encounter for screening mammogram for breast cancer Procedures Mammo screening digital tomosynthesis bilateral w Jeannette Edwards MD [facility] [address] [place] [address] Phone: tel: fax: [facility] [address] [place] [address] Phone: tel: Referral ID Status Reason Start Date Expiration Date Visits Re quested Visits Authorized [id number] Closed 10/06/2019 10/05/2020 1 1 Reason for Visit * Diagnostic Imaging (Routine) - Closed Specialty Diagnoses / Procedures Referred By Contac t Referred To Contact Radiology Diagnoses Encounter for screening mammogram for breast cancer Procedures Mammo screening digital tomosynthesis bilateral w Jeannette Edwards MD [address] [facility] [address] [place] [address] Phone: tel: fax: [facility] [address] [place] [address] Phone: tel: Referral ID Status Reason Start Date Expiration Date Visits Re quested Visits Authorized [id number] Closed 10/06/2019 10/05/2020 1 1 Encounter Details Date Type Department Care Team (Late st Contact Info) Description 11/24/2019 8:00 AM EDT - 11/24/2019 11:59 PM EDT Hospital Encounter [facility] [address] [place] [address] Jeannette Centeno MD [address] [place] [address] [place] [address] Encounter for screening mammogram for breast cancer Discharge Disposition: Home or Self Care Social History Tobacco Use Types Packs/Day Years Used Date Smoking Tobacco: Never Assessed Comments No Sex and Gender Information Value [...] Encounter for screening mammogram for breast cancer documented in this encounter Results * Mammo Screening Digital Tomosynthesis Bilateral [...] or ??areas of architectural distortion are present. us Jeannette Centeno MD IMG MAMMOGRAPHY ORDERABLES Fi nal Result documented in this encounter Visit Diagnoses Diagnosis Encounter for screening mammogram for breast cancer documented in this encounter Care Teams Accounting Software Specialist Relationship Specialty Start Date End Date Clyde Almodovar MD [facility] [address] [place] [address] PCP - General Family Medicine 11/24/19 documented as of this encounter
--- OUTSIDE RECORDS SUMMARY | 2024-03-21 22:03 | XMS_ITS | Data Portability ---
Author Organization [place] [facility] Address [address] [facility] [address] [place] [address] Care Team Providers Care Gmat Tutor Name Role Phone JESS MAHMOOD Primary Care Provider [phone] Assessment No assessment recorded. Plan of Treatment Reminders Order Date Submit Date Provider Last Modified By Organization Details Last Modified Time Details Appointments RECHE CK 2023 02:00P M DR HOYT Not available Not available Not available RECHE CK 2023 01:45P M ERIC PRECIADO PRINCIPAL LAW CLERK Not available Not available Not available DERMA TOLOG Y VISIT 2024 01:00P M OLIVER SCHMIDT MD Not available Not available Not available Lab gluco se, finge rstic k, blood 2022 023 [email or web address] 8 [facility] , [address] [place] [address], [address], 08/02/2022 09:56:29 hemog lobin A1C, finge rstic k 2022 023 [email or web address] 8 [facility] , [address] [place] [address], [address], 08/02/2022 09:56:29 gluco se, finge rstic k, blood 2023 024 [id number] 8 [facility] , [address] [place] [address], [address], 06/27/2023 13:38:37 hemog lobin A1C, finge rstic k 2023 024 [id number] 8 [facility], [address] [place] [address], [address], 06/27/2023 13:38:36 gluco se, joone rstic k, blood 2023 024 [email or web address] 8 [facility], [address] [place] [address], [address], 01/09/2024 15:29:36 hemog lobin A1C, finge rstic k 2023 024 [email or web address] 8 [facility], [address] [place] [address], [address], 01/09/2024 15:29:38 CBC w/ auto diff 2023 024 [facility], [address] [place] [address], [address], 02/11/2024 20:50:02 CMP, serum or plasm a 2023 024 [facility], [address] [place] [address], [address], 02/11/2024 19:51:15 urina lysis , compl ete 2023 024 [facility], [address] [place] [address], [address], 02/11/2024 19:53:32 CBC w/ auto diff [address] [facility], [address] [place] [address], [address], 03/21/2024 12:13:55 CMP, serum or plasm a [address] [facility], [address] [place] [address], [address], 03/21/2024 12:13:55 ESR (eryt hrocy te sedim entat ion rate) , blood 2023 [email or web address] [facility], [address] [place] [address], [address], 03/21/2024 12:13:55 ldh, serum or plasm a 2023 024 [id number] [facility], [address] [place] [address], [address], 03/21/2024 12:13:[address]/on colog ist refer ral 2023 [email or web address] Leo Peter MD, [address] [facility], [facility] [address], [place], [address], 03/07/2024 13:05:43 Procedures None recor ded. Surgeries None recor ded. Imaging None recor ded. Medication Orders Humal og KwikP en (U-10 0) Insul in 100 unit/ mL subcu taneo us [email or web address] [facility], [address] [place], [address], 06/27/2023 11:45:36 Touje o Max U-300 SoloS tar 300 unit/ mL (3 mL) subcu taneo us insul in pen [id number] [facility], [address] [place], [address], 06/27/2023 11:45:21 Mounj reymundo 7.5 mg/0. 5 mL subcu taneo us pen injec tor [id number] [facility], [address] [place], [address], 01/09/2024 15:09:29 fenof ibrat e 160 mg table t [email or web address] [facility], [address], [address], 06/27/2023 13:38:35 Gvoke HypoP en 2-Pac k 1 mg/0. 2 mL subcu taneo us auto- injec tor [id number] [facility], [address], [address], 06/27/2023 13:38:35 Humal og KwikP en (U-10 0) Insul in 100 unit/ mL subcu taneo us [id number] [facility], [address], [address], 06/27/2023 13:38:34 Mounj reymundo 7.5 mg/0. 5 mL subcu taneo us pen injec tor 2023 024 [facility], [address], [address], 01/09/2024 15:09:51 Mounj reymundo 10 mg/0. 5 mL subcu taneo us pen injec tor 2023 024 [facility], [address], [address], 01/09/2024 15:29:44 Touje o Max U-300 SoloS tar 300 unit/ mL (3 mL) subcu taneo us insul in pen 2023 024 [facility], [address], [address], 01/09/2024 15:29:46 ceftr iaxon e 500 mg solut ion for injec tion 2023 [email or web address] Not available 03/07/2024 11:33:30 Augme ntin 875 mg-12 5 mg table t 2023 [facility], [address], [address], 03/07/2024 11:22:45 prome addy ne 12.5 mg table t 2023 [facility], [address], [address], 03/07/2024 11:24:34 Patient TargetsNo targets recorded. Patient InstructionsNo instructions recorded. Reason for Referral Referring Physician: Brian Hoyt, Internal Medicine, Encounter Date: 03/07/2024 Results Created Date Observation Date Name Description Value Unit Range Abnormal Flag Note LastModifiedBy Organization Detail LastModifiedTime 08/03/1908/02/2022 hemog lobin A1C, finge rstic k hemoglobin A1C % 6.8 % 4.0 - 5.6 Not Available [facility] [address], [address], 07/31/2022 13:08:12 08/03/19 23 08/02/2022 gluco se, finge rstic k, blood glucose, fingerstick 97 mg/dL 70 - 100 Not Available [facility] [address], [address], 07/31/2022 13:08:12 06/27/19 24 06/27/2023 hemog lobin A1C, finge rstic k hemoglobin A1C % 7.1 % 4.0 - 5.6 Not Available [facility] [address], [address], 06/26/2023 12:48:48 06/27/19 24 06/27/2023 gluco se, finge rstic k, blood glucose, fingerstick 77 mg/dL 70 - 100 Not Available [facility] [address] [place], [address], 06/26/2023 12:48:48 01/09/2001/09/2024 hemog lobin A1C, joone rstic k hemoglobin A1C % 10.8 % 4.0 - 5.6 Not Available [facility] [address] [place], [address], 01/08/2024 08:24:06 01/09/20 24 01/09/2024 gluco se, joone rstic k, blood glucose, fingerstick 303 mg/dL 70 - 100 Not Available [facility] [address] [place], [address], 01/08/2024 08:24:06 02/11/20 24 02/11/2024 COMP. METAB OLIC PANEL glucose 230 mg/dL 74-100 high Not Available [facility] [address] [place] [address], [address], 02/11/2024 19:51:15 02/11/20 24 02/11/2024 COMP. METAB OLIC PANEL blood urea nitrogen 12 mg/dL 6-20 normal Not Available [facility] [address] [place] [address], [address], 02/11/2024 19:51:15 02/11/20 24 02/11/2024 COMP. METAB OLIC PANEL creatinine 0.60 mg/dL 0.50-0 .95 normal Not Available [facility] [address] [place] [address], [address], 02/11/2024 19:51:15 02/11/20 24 02/11/2024 COMP. METAB OLIC PANEL BUN/creatini ne ratio 20 (calc ) 10-20 normal Not Available [facility] [address] [place] [address], [address], 02/11/2024 19:51:15 02/11/20 24 02/11/2024 COMP. METAB OLIC PANEL sodium 136 mmol/ L 136-14 5 normal Not Available [facility] [address] [place] [address], [address], 02/11/2024 19:51:15 02/11/20 24 02/11/2024 COMP. METAB OLIC PANEL potassium 4.0 mmol/ L 3.4-5. 0 normal Not Available [facility] [address] [place] [address], [address], 02/11/2024 19:51:15 02/11/20 24 02/11/2024 COMP. METAB OLIC PANEL chloride 101 mmol/ L 98-107 normal Not Available [facility] [address] [place] [address], [address], 02/11/2024 19:51:15 02/11/2002/11/2024 COMP. METAB OLIC PANEL carbon dioxide 19 mmol/ L 22-31 low Not Available [facility] [address] [place] [address], [address], 02/11/2024 19:51:15 02/11/2002/11/2024 COMP. METAB OLIC PANEL anion gap 16 (calc ) 7-25 normal Not Available [facility] [address] [place] [address], [address], 02/11/2024 19:51:15 02/11/20 24 02/11/2024 COMP. METAB OLIC PANEL calcium 9.7 mg/dL 8.6-10 .2 normal Not Available [facility] [address] [place] [address], [address], 02/11/2024 19:51:15 02/11/2002/11/2024 COMP. METAB OLIC PANEL total protein 7.7 g/dL 6.4-8. 3 normal Not Available [facility] [address] [place] [address], [address], 02/11/2024 19:51:15 02/11/20 24 02/11/2024 COMP. METAB OLIC PANEL albumin 4.0 g/dL 3.5-5. 2 normal Not Available [facility] [address] [place] [address], [address], 02/11/2024 19:51:15 02/11/20 24 02/11/2024 COMP. METAB OLIC PANEL globulin 3.7 1.5-4. 5 normal Not Available [facility] [address] [place] [address], [address], 02/11/2024 19:51:15 02/11/20 24 02/11/2024 COMP. METAB OLIC PANEL albumin/glob ulin ratio 1.1 (calc ) 1.1-2. 5 normal Not Available [facility] [address] [place] [address], [address], 02/11/2024 19:51:15 02/11/20 24 02/11/2024 COMP. METAB OLIC PANEL bilirubin, total 0.3 mg/dL 0.1-1. 2 normal Not Available [facility] [address] [place] [address], [address], 02/11/2024 19:51:15 02/11/20 24 02/11/2024 COMP. METAB OLIC PANEL alkaline phosphatase 105 U/L 30-121 normal Not Available [facility] [address] [place], [address], 02/11/2024 19:51:15 02/11/20 24 02/11/2024 COMP. METAB OLIC PANEL AST 11 U/L 0-32 normal Not Available [facility] [address] [place] [address], [address], 02/11/2024 19:51:15 02/11/20 24 02/11/2024 COMP. METAB OLIC PANEL ALT 10 U/L 0-33 normal Not Available [facility] [address] [place] [address], [address], 02/11/2024 19:51:15 02/11/20 24 02/11/2024 COMP. METAB OLIC PANEL GFR 113 >= 60 normal NOT E New calcu latio n for GFR (CKD- EPI 2020) is formu lated witho ut race adjus tment facto rs at the recom menda tion of the Natio nal Kidne y Found ation and Ameri can Parkere ty of Nephr ology . This calcu latio n has not been valid ated in pregn ant women . For pedia tric patie nts refer to https ://fredi w.atiya cisneros.o rg/pr ofess ional s/KDO QI/gf r_cal culat orPed Not Available [facility] [address] [place], [address], 02/11/2024 19:51:15 02/11/20 24 02/11/2024 URINA LYSIS color Rhea normal Not Available [facility] [address] [place], [address], 02/11/2024 19:53:32 02/11/20 24 02/11/2024 URINA LYSIS appearance Light turbid normal Not Available [facility] [address] [place], [address], 02/11/2024 19:53:32 02/11/20 24 02/11/2024 URINA LYSIS glucose 250 mg/dL normal abnormal Not Available [facility] [address] [place], [address], 02/11/2024 19:53:32 02/11/20 24 02/11/2024 URINA LYSIS bilirubin Negati ve mg/dL negati ve normal Not Available [facility] [address] [place], [address], 02/11/2024 19:53:32 02/11/20 24 02/11/2024 URINA LYSIS ketone 5 mg/dL negati ve abnormal Not Available [facility] [address] [place], [address], 02/11/2024 19:53:32 02/11/2002/11/2024 URINA LYSIS specific gravity 1.040 1.003- 1.035 high Not Available [facility] [address] [place] [address], [address], 02/11/2024 19:53:32 02/11/2002/11/2024 URINA LYSIS blood 25 /uL negati ve abnormal Not Available [facility] [address] [place] [address], [address], 02/11/2024 19:53:32 02/11/2002/11/2024 URINA LYSIS pH 5 5.0 - 8.0 normal Not Available [facility] [address] [place] [address], [address], 02/11/2024 19:53:32 02/11/2002/11/2024 URINA LYSIS protein 15 mg/dL negati ve abnormal Not Available [facility] [address] [place] [address], [address], 02/11/2024 19:53:32 02/11/2002/11/2024 URINA LYSIS urobilinogen Normal mg/dL normal normal Not Available [facility] [address] [place] [address], [address], 02/11/2024 19:53:32 02/11/2002/11/2024 URINA LYSIS nitrite Negati ve negati ve normal Not Available [facility] [address] [place] [address], [address], 02/11/2024 19:53:32 02/11/2002/11/2024 URINA LYSIS leukocyte esterase 100 /uL negati ve abnormal Not Available [facility] [address] [place] [address], [address], 02/11/2024 19:53:32 02/11/2002/11/2024 URINA LYSIS mucus, urine 2+ /lpf not establ ished normal Not Available [facility] [address] [place] [address], [address], 02/11/2024 19:53:32 02/11/20 24 02/11/2024 URINA LYSIS WBC, urine > 30 0-5/hp f abnormal Not Available [facility] [address] [place] [address], [address], 02/11/2024 19:53:32 02/11/2002/11/2024 URINA LYSIS RBC, urine 3-10 0-2/hp f abnormal Not Available [facility] [address] [place] [address], [address], 02/11/2024 19:53:32 02/11/20 24 02/11/2024 URINA LYSIS squamous epi. cells > 10 0-5/hp f abnormal Not Available [facility] [address] [place] [address], [address], 02/11/2024 19:53:32 02/11/2002/11/2024 URINA LYSIS bacteria 2+ /hpf none seen abnormal Not Available [facility] [address] [place] [address], [address], 02/11/2024 19:53:32 02/11/2002/11/2024 URINA LYSIS yeast, urine Many /hpf none seen abnormal Not Available [facility] [address] [place] [address], [address], 02/11/2024 19:53:32 02/11/20 24 02/11/2024 COMPL ETE BLOOD COUNT white blood cells 14.5 10*3/ uL 3.8-10 .8 high Not Available [facility] [address] [place] [address], [address], 02/11/2024 20:50:01 02/11/20 24 02/11/2024 COMPL ETE BLOOD COUNT red blood cells 4.85 10*6/ uL 3.80-5 .20 normal Not Available [facility] [address] [place] [address], [address], 02/11/2024 20:50:01 02/11/20 24 02/11/2024 COMPL ETE BLOOD COUNT hemoglobin 15.1 g/dL 12.0-1 6.0 normal Not Available [facility] [address] [place] [address], [address], 02/11/2024 20:50:01 02/11/20 24 02/11/2024 COMPL ETE BLOOD COUNT hematocrit 44.7 % 35.0-4 7.0 normal Not Available [facility] [address] [place] [address], [address], 02/11/2024 20:50:01 02/11/20 24 02/11/2024 COMPL ETE BLOOD COUNT MCV 92 fL 80-100 normal Not Available [facility] [address] [place] [address], [address], 02/11/2024 20:50:01 02/11/2002/11/2024 COMPL ETE BLOOD COUNT MCH 31 pg 26-35 normal Not Available [facility] [address] [place] [address], [address], 02/11/2024 20:50:01 02/11/20 24 02/11/2024 COMPL ETE BLOOD COUNT MCHC 34 g/dL 32-36 normal Not Available [facility] [address] [place] [address], [address], 02/11/2024 20:50:01 02/11/20 24 02/11/2024 COMPL ETE BLOOD COUNT RDW 14.7 % 11.0-1 5.0 normal Not Available [facility] [address] [place] [address], [address], 02/11/2024 20:50:01 02/11/20 24 02/11/2024 COMPL ETE BLOOD COUNT MPV 8.9 fL 6.2-10 .5 normal Not Available [facility] [address] [place] [address], [address], 02/11/2024 20:50:01 02/11/20 24 02/11/2024 COMPL ETE BLOOD COUNT platelet count 518 10*3/ uL 150-40 0 high Not Available [facility] [address] [place] [address], [address], 02/11/2024 20:50:01 02/11/20 24 02/11/2024 COMPL ETE BLOOD COUNT neutrophil,a bsolute 7.2 10*3/ uL 1.6-8. 4 normal Not Available [facility] [address] [place] [address], [address], 02/11/2024 20:50:01 02/11/20 24 02/11/2024 COMPL ETE BLOOD COUNT lymphocyte,a bsolute 5.4 10*3/ uL 0.4-5. 1 high Not Available [facility] [address] [place] [address], [address], 02/11/2024 20:50:01 02/11/20 24 02/11/2024 COMPL ETE BLOOD COUNT monocyte,abs olute 1.2 10*3/ uL 0.0-1. 2 normal Not Available [facility] [address] [place] [address], [address], 02/11/2024 20:50:01 02/11/20 24 02/11/2024 COMPL ETE BLOOD COUNT eosinophil,a bsolute 0.2 10*3/ uL 0.0-0. 8 normal Not Available [facility] [address] [place] [address], [address], 02/11/2024 20:50:01 02/11/20 24 02/11/2024 COMPL ETE BLOOD COUNT basophil,abs olute 0.4 10*3/ uL 0.0-0. 3 high Not Available [facility] [address] [place] [address], [address], 02/11/2024 20:50:01 02/11/20 24 02/11/2024 COMPL ETE BLOOD COUNT % neutrophils 49.9 % 42.0-7 8.0 normal Not Available [facility] [address] [place] [address], [address], 02/11/2024 20:50:01 02/11/20 24 02/11/2024 COMPL ETE BLOOD COUNT % lymphocytes 37.3 % 11.0-4 7.0 normal Not Available [facility] [address] [place] [address], [address], 02/11/2024 20:50:01 02/11/20 24 02/11/2024 COMPL ETE BLOOD COUNT % monocytes 8.5 % 0.0-11 .0 normal Not Available [facility] [address] [place] [address], [address], 02/11/2024 20:50:01 02/11/20 24 02/11/2024 COMPL ETE BLOOD COUNT % eosinophils 1.4 % 0.0-7. 0 normal Not Available [facility] [address] [place] [address], [address], 02/11/2024 20:50:01 02/11/20 24 02/11/2024 COMPL ETE BLOOD COUNT % basophils 2.9 % 0.0-3. 0 normal Not Available [facility] [address] [place] [address], [address], 02/11/2024 20:50:01 02/11/20 24 02/11/2024 COMPL ETE BLOOD COUNT nucleated red cells 0.1 % 0.0-0. 9 normal Not Available [facility] [address] [place] [address], [address], 02/11/2024 20:50:01 02/11/20 24 02/11/2024 COMPL ETE BLOOD COUNT nucleated RBCs, absolute 0.02 10*3/ uL not estab. normal Not Available [facility] [address] [place], [address], 02/11/2024 20:50:01 02/22/20 24 02/19/2024 XR, chest , 2 view No observ ation record ed. [email or web address] Not Available 2023 11:35:26 Result Notes None recorded. Problems Name Problem SNOMED Code Status Onset Date Resolution Date Notes Provider Name and Address Organization Details Recorded Time High glucose level in blood 707020275 Active 2020 Not Available [facility] 3 06:18:45 Depressive disorder 95579111 Active 2023 BRIAN DE, DO [address] [place] [address], [address] [place] [address] , [facility] 4 11:08:24 Anxiety 98856406 Active 2023 BRIAN DE, DO [address] [place] [address] 4 11:08:34 Problem Notes None recorded. Procedures Surgical History Date Name Laterality Status Provider Name and Address Organization Details Recorded Time procedure on spleen completed [facility] 02/17/2021 09:40:19 procedure on gallbladder completed [facility] 02/17/2021 09:40:30 endoscopic procedure on spleen completed [facility] 02/17/2021 09:40:59 procedure on appendix completed [facility] 02/17/2021 09:41:08 Imaging Results Imaging Date Name Status LastModified by Organiz ation Details LastModified Time 02/19/2024 XR, chest, 2 view completed [email or web address] Information not available 02/22/2024 11:35:26 Procedure Notes None recorded. Medical Equipment None [...] Not Available No t Available Dexcom G7 Installation Supervisor USE DIRECTED active Not Available Not Available No t Available Dexcom G7 Sensor device CHANGE SENSOR EVERY 10 DAYS active Not Available Not Available No t Available Vitals Date Recorded Body height Body mass index (BMI) Body weight Heart rate Systolic blood pressure Diastolic blood pressure Provider Name and Address Organization Details Last Updated DateTime 3 167.64 cm 35 kg/m2 19148.5 4 g 82 /min 118 mm[Hg] 76 mm[Hg] [facility] 3 09:24:08 Date Recorded Body height Body mass index (BMI) Body weight Heart rate Systolic blood pressure Diastolic blood pressure Provider Name and Address Organization Details Last Updated DateTime 4 167.64 cm 33.7 kg/m2 58213.8 1 g 74 /min 126 mm[Hg] 72 mm[Hg] [facility] 4 11:48:40 Date Recorded Body height Body mass index (BMI) Body weight Heart rate Systolic blood pressure Diastolic blood pressure Provider Name and Address Organization Details Last Updated DateTime 4 167.64 cm 29.9 kg/m2 88277.5 9 g 125 /min 128 mm[Hg] 76 mm[Hg] [facility] 4 14:59:13 Date Recorded Body height Body mass index (BMI) Body weight Heart rate Oxygen saturation Oxygen saturation in Arterial blood by Pulse oximetry Systolic blood pressure Diastolic blood pressure Provider Name and Address Organization Details Last Updated DateTime 4 167.64 cm 28.8 kg/m2 91136.2 4 g 114 /min 97 % 97 % 122 mm[Hg] 72 mm[Hg] [facility] 4 11:02:16 Date Recorded Body height Body mass index (BMI) Body weight Heart rate Oxygen saturation Oxygen saturation in Arterial blood by Pulse oximetry Body temperature Systolic blood pressure Diastolic blood pressure Provider Name and Address Organization Details Last Updated DateTime 4 167.64 cm 28.4 kg/m2 09493.6 6 g 103 /min 96 % 96 % 98.7 [degF] 116 mm[Hg] 70 mm[Hg] [facility] 4 11:04:27 Social History Question Answer Notes LastModified by [facility] ion Details LastModified Time Tobacco Smoking Status Never Smoker [facility]/17[facility]2021 09:40:01 What Is Your Level Of Alcohol Consumption? None [email or web address] Information not available 02/17/2021 What Is Your Level Of Caffeine Consumption? Moderate [email or web address] Information not available 02/17/2021 What Was The Date Of Your Most Recent Tobacco Screening? 09/22/2021 [email or web address] Information not available 09/22/2021 Do You Use Any Illicit Or Recreational Drugs? No [email or web address] Information not available 02/17/2021 Has Tobacco Cessation Counseling Been Provided? No [email or web address] Information not available 02/17/2021 Do You Or Have You Ever Used Any Other Forms Of Tobacco Or Nicotine? No [email or web address] Information not available 02/17/2021 Sex: Female Functional Status None recorded. Mental Status None recorded. Family History Relationship Description Onset Age of this Age Resolved Age Notes LastModified by Organization Details LastModified Time Father Diabetes mellitus [email or web address] Not available 2020 09:39:02 Father Family history of malignant neoplasm [email or web address] Not available 2020 09:39:45 Maternal Grandmother Family history of stroke [email or web address] Not available 2020 09:39:27 Medical History No medical history recorded. Gynecological HistoryNo gynecological history recorded. Obstetrics History GPAL:G 0 P 0 0 0 0 Immunizations Vaccine Type Date Status Provider Name and Address Organization Details Recorded Time Influenza, split virus, quadrivalent, preservative 03/09/2022 completed Honey Rodri [facility] 01/09/2024 14:56:25 Influenza, recombinant, quadrivalent, PF 02/15/2020 completed Honey Rodri [facility] 01/09/2024 14:56:25 Influenza, live, trivalent, intranasal 01/27/2013 completed Honey Rodri [facility] 01/09/2024 14:56:25 Tdap 08/28/2017 completed Honey Rodri [facility] 01/09/2024 14:56:25 Pneumococcal conjugate PCV 13 09/04/2017 completed Honey Rodri [facility] 01/09/2024 14:56:25 meningococcal MCV4P 08/22/2017 [facility]09[facility] 14:56:25 Influenza, split virus, quadrivalent, PF 12/31/2013 completed Honey Rodri [facility] 01/09/2024 14:56:25 Influenza, split virus, quadrivalent, PF 02/02/2019 completed Honey Rodri [facility] 01/09/2024 14:56:25 COVID-19, mRNA, LNP-S, PF, 100 mcg/0.5mL dose or 50 mcg/0.25mL dose 05/14/2020 completed Honey Rodri [facility] 01/09/2024 14:56:25 COVID-19, mRNA, LNP-S, PF, 100 mcg/0.5mL dose or 50 mcg/0.25mL dose 07/09/2020 completed Honey Rodri [facility] 01/09/2024 14:56:25 Past Encounters Encounter ID Performer Location Encounter Start Date Encounter Closed Date Diagnosis/Indication Diagnosis SNOMED-CT Code Diagnosis ICD10 Code [id number] BOWEN AMINE, DO ENDOCRINO [facility] [address] [place] [address] 02/17/2021 09:28:09 02/18/2021 15:33:16 Uncontrolled type 2 diabetes mellitus 195954323 E11.65 Hyperlipidemia 84154799 E78.5 Peripheral neuropathy due to type 2 diabetes mellitus 4631519439 107 E11.42 [id number] BOWEN PINZON DO ENDOCRINO [facility] [address] [place] [address] 1 03/10/2021 10:09:31 03/16/2021 16:00:54 Uncontrolled type 2 diabetes mellitus 067493063 E11.65 [id number] BOWEN PINZON DO [facility] [address] [place] [address] 1 04/28/2021 08:49:23 04/28/2021 12:28:06 Uncontrolled type 2 diabetes mellitus 554060609 E11.65 Mixed hyperlipidemia 267 194757 E78.2 Peripheral neuropathy due to type 2 diabetes mellitus 9451779646 107 E11.42 [id number] BOWEN PINZON DO [facility] [address] [place] [address] 1 08/25/2021 09:55:13 08/25/2021 10:51:50 Uncontrolled type 2 diabetes mellitus 472220961 E11.65 Hypertriglyceridemia 302 036542 E78.2 Diabetic p eripheral neuropathy 022830097 E11.40 [id number] BOWEN PINZON DO [facility] [address] [place] [address] 1 09/22/2021 09:28:49 09/22/2021 10:08:36 Uncontrolled type 2 diabetes mellitus 802023783 E11.65 [id number] BOWEN PINZON DO [facility] [address] [place] [address] 1 03/20/2022 10:23:58 03/20/2022 11:14:35 Uncontrolled type 2 diabetes mellitus 832729406 E11.65 Mixed hyperlipidemia 267 052496 E78.2 [id number] ERIC PRECIADO APRN [facility] [address] [place] [address] 1 08/02/2022 09:09:42 08/02/2022 09:57:46 Uncontrolled type 2 diabetes mellitus 005122443 E11.65 Mixed hyperlipidemia 267 550836 E78.2 Peripheral neuropathy due to type 2 diabetes mellitus 0831812132 107 E11.42 [id number] ERIC PRECIADO APRN [facility] [address] [place] [address] 06/27/2023 11:35:01 06/27/2023 12:45:31 Uncontrolled type 2 diabetes mellitus 086633532 E11.65 Mixed hyperlipidemia 267 809184 E78.2 Peripheral neuropathy due to type 2 diabetes mellitus 9569191547 107 E11.42 Hypoglycem ia due to type 2 diabetes mellitus 3891373063 76318 E11.649 Hypertriglyceridemia 302 915343 E78.1 [id number] ERIC PRECIADO APRN [facility] [address] [place] [address] 01/09/2024 14:50:09 01/09/2024 15:30:56 Uncontrolled type 2 diabetes mellitus 893290064 E11.65 Mixed hyperlipidemia 267 483285 E78.2 Peripheral neuropathy due to type 2 diabetes mellitus 9765946207 107 E11.42 Hypoglycem ia due to type 2 diabetes mellitus 4329356860 68063 E11.649 Hypertriglyceridemia 302 524202 E78.1 [id number] BRIAN DE, DO PRIMARY [facility] [address] [place] [address] 02/11/2024 10:29:20 02/11/2024 11:25:08 History of splenectomy 506262452 Z90.81 Uncontroll ed type 2 diabetes mellitus 091711141 E11.65 Anxiety 79473599 F41.9 Depressive disorder 3548 9007 F32.A Chronic tonsillitis 9097 9004 J35.01 Polyneuropathy 75811247 G62.9 Illness 41536138 R69 [id number] BRIAN DE, DO PRIMARY [facility] [address] [place] [address] 03/07/2024 10:53:49 03/07/2024 12:09:21 Chronic tonsillitis 73574766 J35.01 Cervical lymphadenopathy 306251723 R59.0 Uncontroll ed type 2 diabetes mellitus 049566281 E11.65 Abnormal weight loss 267 316075 R63.4 Health Concerns Section Related Observation LastModified by Organization Detai ls LastModified Time None Recorded Concern Status LastModified by Organization Details LastModified Time None Recorded Advance Directives Directive None Recorded Payers Encounter Date Sequence Insurance Name Policy Number Policy Mccarty Covered Member ID Mccarty Member ID Guarantor Name 08/02/2022 1 [place] [id number] Lamine L Garcia [id number] Olya R Garcia 06/27/2023 1 [place] [id number] Lamine L Garcia [id number] Olya R Garcia 01/09/2024 1 [place] [id number] Lamine L Garcia [id number] Olya R Garcia 02/11/2024 1 [place] [id number] Lamine L Garcia [id number] 03 Olya R Garcia 03/07/2024 1 [place] [id number] Lamine L Garcia [id number] Olya R Garcia Notes Date Note Type Note Provider Name and Address Organization Details Recorded Time 08/02/2022 text/html This is a 41 yea r old female with a past medical history significant for hyperlipidemia and T2DM who presented to the clinic for follow up of her T2DM. Last seen on 03/20/22. Since her last visit she reports no acute illnesses or hospitalizations. At last visit, pt was switched from ozempic to mounjaro. Concerned about continued weight gain. More antidepressants d/t grandchild passing away. Hx: Metformin (GI side effects). She was then on Bydureon without issues however that was discontinued for unclear reasons. Xigduo (recurrent yeast infections) Diabetes related complications include neuropathy. Current Treatment Regimen:Toujeo 62 units AMHumalog 20 units with CF 2:50 >150Mounjaro 5mg qwk No recent episodes of hypoglycemia. Patient is able to recognize and treat appropriately. Diet: 3 meals per day- planning to stop mt. dewB: bananaL: ham sandwich/ tuna with crackers/ soupD: may not eat/ tacos/ burger/ meat/veg/ starchS: none- slim jimDrinks: mt. dew (regular)/ ice drinks Exercise: walk some, plans to go to the gym Review finger sticks: see scanned logs- DEXCOMAvg. 185TIR 49%Hypo <1% Compliance: compliant with medications; compliant with follow-up visits; compliant with diet; compliant with home glucose monitoring; no side effects from medications Self Care: monitoring glucose daily; seeing eye doctor regularly; checking feet regularly;Last dilated eye exam: 07/22/[address]- no DR (on file) Associated Symptoms: no weight loss; no dizziness; no sweats; no headaches; no confusion; no increased appetite; no increase thirst; no increased urination; no blurred vision; no numbness/burning/ting ling of feet; no calluses on feet; no SOB; no heart palpitations/racing heart Reports: 4lb weight gain since last visit; aching in upper legs (on gabapentin) Chronic Complications:Diabeti c retinopathy: {{Yes No*}}Diabetic neuropathy: {{Yes* No}}Diabetic nephropathy: {{Yes No*}}Hypertensi on: {{Yes* No}}Hyperlipid emia: {{Yes* No}} ERIC PRECIADO, PRINCIPAL LAW CLERK [address] [place], [address], [facility] 08/02/2022 10:14:58 06/27/2023 text/html This is a 42 yea r old female with a past medical history significant for hyperlipidemia and T2DM who presented to the clinic for follow up of her T2DM. Last seen on 08/02/22. Pt has not followed up as recommended. At last visit, we increased mounjaro. She reports multiple illnesses and hospitalizations. Most recently, hospitalized first of May for hypoglycemia in 30's and COVID. She states she has had COVID 4x since January. She was symptomatic with the hypoglycemia, was given dextrose. Decreased insulin doses at discharge. Hx: Metformin (GI side effects). She was then on Bydureon without issues however that was discontinued for unclear reasons. Xigduo (recurrent yeast infections) Diabetes related complications include neuropathy. Current Treatment Regimen:Toujeo 10 units PMHumalog 10 units TID with mealsMounjaro 7.5mg qwk No recent episodes of hypoglycemia. Patient is able to recognize and treat appropriately. Diet: 3 meals per day- inconsistent meal timing- PB/grapes, limiting mt. dewB: oatmealL: frozen meal- Smart One; salad; leftovers;D: tacos; burger/ meat/veg/ starchS: slim honorio; fruit/PBDrinks: mt. dew (regular- 1 per day)/ ice drinks Exercise: walk some, plans to go to the gym Review finger sticks: see scanned logs- DEXCOMAvg. 183TIR 46%Hypo 1% Compliance: compliant with medications; compliant with follow-up visits; compliant with diet; compliant with home glucose monitoring; no side effects from medications Self Care: monitoring glucose daily; seeing eye doctor regularly; checking feet regularly;Last dilated eye exam: 07/22/[address]- no DR (on file) Associated Symptoms: no weight loss; no dizziness; no sweats; no headaches; no confusion; no increased appetite; no increase thirst; no increased urination; no blurred vision; no numbness/burning/ting ling of feet; no calluses on feet; no SOB; no heart palpitations/racing heart Reports: 8lb weight loss since last visit; aching in upper legs (on gabapentin) Chronic Complications:Diabeti c retinopathy: {{Yes No*}}Diabetic neuropathy: {{Yes* No}}Diabetic nephropathy: {{Yes No*}}Hypertensi on: {{Yes* No}}Hyperlipid emia: {{Yes* No}} ERIC PRECIADO, PRINCIPAL LAW CLERK [address] [place], [address], [facility] 06/27/2023 13:41:49 01/09/2024 text/html This is a 43 yea r old female with a past medical history significant for hyperlipidemia and T2DM who presented to the clinic for follow up of her T2DM. Last seen on 06/27/23. Pt has not followed up as recommended. At last visit, we increased mounjaro. She had strep throat, then hospitalized for pneumonia for 1-2 weeks in November-January 03, steroids. Unable to eat solid foods. CT neck showed enlarged lymph nodes, upcoming appt with ENT. She reports tenderness to touch (neck) and difficulty swallowing. Hx: Metformin (GI side effects). She was then on Bydureon without issues however that was discontinued for unclear reasons. Xigduo (recurrent yeast infections) Diabetes related complications include neuropathy. Current Treatment Regimen:Toujeo 12 units PMHumalog (only taking sliding scale currently d/t limited diet)150-111=2u332-02 5=5w057-705=9u095-324 =9uMounjaro 10mg qwk No recent episodes of hypoglycemia. Patient is able to recognize and treat appropriately. Diet: 3 meals per day- inconsistent meal timing- Sf pudding, mac& cheese or mashed potatoes/meat for dinner. Not eating breakfast.Drinks: mt. dew (regular- 1 per day)/ ice drinks/ water Exercise: limited recently Review finger sticks: see scanned logs- DEXCOMAvg. 328SD 64TIR 2%Hypo 0% Compliance: compliant with medications; compliant with follow-up visits; compliant with diet; compliant with home glucose monitoring; no side effects from medications Self Care: monitoring glucose daily; seeing eye doctor regularly; checking feet regularly;Last dilated eye exam: 07/22/[address]- no DR (on file) Associated Symptoms: no weight loss; no dizziness; no sweats; no headaches; no confusion; no increased appetite; no increase thirst; no increased urination; no blurred vision; no numbness/burning/ting ling of feet; no calluses on feet; no SOB; no heart palpitations/racing heart Reports: additional 24lb weight loss since last visit; aching in upper legs (on gabapentin) Chronic Complications:Diabeti c retinopathy: {{Yes No*}}Diabetic neuropathy: {{Yes* No}}Diabetic nephropathy: {{Yes No*}}Hypertensi on: {{Yes* No}}Hyperlipid emia: {{Yes* No}} ERIC PRECIADO, PRINCIPAL LAW CLERK [address], [place], [address], [facility] 01/09/2024 16:02:55 02/11/2024 text/html Patient is 43-year-old female here for new patient evaluation. She has poorly controlled diabetes, is on Mounjaro, basal bolus insulin, managed by celery stripper, last A1c was pretty high. She has [...] tonsils taken out or not Works at [employer].. no smoke.no alcohol BRIAN SOHAIL, DO [address] [place], [address], [facility] 02/11/2024 12:49:37 03/07/2024 text/html Patient is 43-year-old female here for acute visit, she has poorly controlled diabetes, has had recurrent infections, pneumonia, for which recently had hospitalization, she has this weird cervical lymphadenopathy, has been evaluated by ENT at [facility], follow-up CT looked improved, ENT doctor [...] pain. She feels dehydrated BRIAN HOYT, DO [address] [place], [address], [facility] 03/07/2024 12:56:05 OBGyn Episode No OBEpisode recorded.
--- OUTSIDE RECORDS SUMMARY | 2024-03-21 22:03 | XMS_ITS | Continuity of Care Document ---
Author Organization [facility], ENDOCRINOLOGY Address [address] [place] [address] Care Team Providers Care Shooter'S Helper Name Role Phone JESS MAHMOOD Primary Care Provider [phone] Assessment No assessment recorded. Plan of Treatment Reminders Order Date Submit Date Provider Last Modified By Organization Details Last Modified Time Details Appointments RECHE CK 2023 02:00P M DR SAUCEDA Not available Not available Not available RECHE CK 2023 01:45P M ERIC PRECIADO LUNCHEONETTE MANAGER Not available Not available Not available DERMA TOLOG Y VISIT 2024 01:00P M OLIVER SCHMIDT MD Not available Not available Not available Lab gluco se, finge rstic k, blood 2023 024 [email or web address] [id number] [facility]ocr[facility]ology , [facility] [place], [address], 01/09/2024 15:29:36 hemog lobin A1C, finge rstic k 2023 024 [email or web address] 8 [facility] Endocrinology , [address] [place], [address], 01/09/2024 15:29:38 Referral None recor ded. Procedures None recor ded. Surgeries None recor ded. Imaging None recor ded. Medication Orders Mounj reymundo 10 mg/0. 5 mL subcu taneo us pen injec tor 2023 024 [facility] [place], [address], 01/09/2024 15:29:44 Touje o Max U-300 SoloS tar 300 unit/ mL (3 mL) subcu taneo us insul in pen 2023 024 [facility], [address], [address], 01/09/2024 15:29:46 Patient TargetsNo targets recorded. Patient InstructionsNo instructions recorded. Reason for Referral None Reported. Results Created Date Observation Date Name Description Value Unit Range Abnormal Flag Note LastModifiedBy Organization Detail LastModifiedTime 01/09/2001/09/2024 hemog lobin A1C, finge rstic k hemoglobin A1C % 10.8 % 4.0 - 5.6 Not Available [facility] [address] [place], [address], 01/08/2024 08:24:06 01/09/20 24 01/09/2024 gluco se, finge rstic k, blood glucose, fingerstick 303 mg/dL 70 - 100 Not Available [facility] [address] [place], [address], 01/08/2024 08:24:06 02/22/20 24 02/19/2024 XR, chest , 2 view No observ ation record ed. [email or web address] Not Available 2023 11:35:26 Result Notes None recorded. Problems Name Problem SNOMED Code Status Onset Date Resolution Date Notes Provider Name and Address Organization Details Recorded Time High glucose level in blood 680677629 Active 2020 Not Available [facility] 3 06:18:45 Depressive disorder 45510210 Active 2023 BRIAN DE, DO [address] [place], [address] , [facility] 4 11:08:24 Anxiety 92553555 Active 2023 BRIAN DE, DO [address] [place] [address], [address] , [facility] 11:08:34 Problem Notes None recorded. Procedures Surgical History Date Name Laterality Status Provider Name and Address Organization Details Recorded Time procedure on spleen completed [facility] 02/17/2021 09:40:19 procedure on gallbladder completed [facility] 02/17/2021 09:40:30 endoscopic procedure on spleen completed [facility] 02/17/2021 09:40:59 procedure on appendix completed [facility] 02/17/2021 09:41:08 Imaging Results None recorded. Procedure [...] completed Not Available Not Available Not Available Rakanjesseliliana Max U-300 SoloStar 300 unit/mL (3 mL) [...] Not Available No t Available Dexcom G7 Production Floater USE DIRECTED active Not Available Not Available No t Available Dexcom G7 Sensor device CHANGE SENSOR EVERY 10 DAYS active Not Available Not Available No t Available Vitals Date Recorded Body height Body mass index (BMI) Body weight Heart rate Systolic blood pressure Diastolic blood pressure Provider Name and Address Organization Details Last Updated DateTime 4 167.64 cm 29.9 kg/m2 01917.5 9 g 125 /min 128 mm[Hg] 76 mm[Hg] Fanta [facility] 14:59:13 Social History Question Answer Notes LastModified by Organizat ion Details LastModified Time Tobacco Smoking Status Never Smoker Natividad Lerma [facility] 02/17/2021 09:40:01 What Is Your Level Of Alcohol Consumption? None [email or web address] Information not available 02/17/2021 What Is Your Level Of Caffeine Consumption? Moderate [email or web address] Information not available 02/17/2021 What Was The Date Of Your Most Recent Tobacco Screening? 09/22/2021 [email or web address] Information not available 09/22/2021 Do You Use Any Illicit Or Recreational Drugs? No [email or web address] Information not available 02/17/2021 Has Tobacco Cessation Counseling Been Provided? No [email or web address] Information not available 02/17/2021 Do You Or Have You Ever Used Any Other Forms Of Tobacco Or Nicotine? No Information not available 02/17/2021 Sex: Female Functional Status None recorded. Mental Status None recorded. Family History Relationship Description Onset Age of this Age Resolved Age Notes LastModified by Organization Details LastModified Time Father Diabetes mellitus [email or web address] Not available 2020 09:39:02 Father Family history of malignant neoplasm [email or web address] Not available 2020 09:39:45 Maternal Grandmother Family history of stroke [email or web address] Not available 2020 09:39:27 Medical History No medical history recorded. Gynecological HistoryNo gynecological history recorded. Obstetrics History GPAL:G 0 P 0 0 0 0 Immunizations Vaccine Type Date Status Provider Name and Address Organization Details Recorded Time Influenza, split virus, quadrivalent, preservative 03/09/2022 completed Fanta Mace [facility] 01/09/2024 14:56:25 Influenza, recombinant, quadrivalent, PF 02/15/2020 completed Fanta Mace [facility] 01/09/2024 14:56:25 Influenza, live, trivalent, intranasal 01/27/2013 completed Fanta Mace [facility] 01/09/2024 14:56:25 Tdap 08/28/2017 [facility] 01/09/2024 14:56:25 Pneumococcal conjugate PCV 13 09/04/2017 [facility] 01/09/2024 14:56:25 meningococcal MCV4P 08/22/2017 completed [facility] 01/09/2024 14:56:25 Influenza, split virus, quadrivalent, PF 12/31/2013 completed Honey Rodri null, [facility] 01/09/2024 14:56:25 Influenza, split virus, quadrivalent, PF 02/02/2019 completed [facility] 01/09/2024 14:56:25 COVID-19, mRNA, LNP-S, PF, 100 mcg/0.5mL dose or 50 mcg/0.25mL dose 05/14/2020 completed [facility] 01/09/2024 14:56:25 COVID-19, mRNA, LNP-S, PF, 100 mcg/0.5mL dose or 50 mcg/0.25mL dose 07/09/2020 completed Honey Rodri [facility] 01/09/2024 14:56:25 Past Encounters Encounter ID Performer Location Encounter Start Date Encounter Closed Date Diagnosis/Indication Diagnosis SNOMED-CT Code Diagnosis ICD10 Code [id number] ERIC PRECIADO APRN ENDOCRINO [facility]Y [address] [place] [address] 01/09/2024 14:50:09 01/09/2024 15:30:56 Uncontrolled type 2 diabetes mellitus 549400711 E11.65 Mixed hyperlipidemia 267 916015 E78.2 Peripheral neuropathy due to type 2 diabetes mellitus 3886536022 107 E11.42 Hypoglycem ia due to type 2 diabetes mellitus 6737076872 89836 E11.649 Hypertriglyceridemia 302 403285 E78.1 Health Concerns Section Related Observation LastModified by Organization Detai ls LastModified Time None Recorded Concern Status LastModified by Organization Details LastModified Time None Recorded Payers Encounter Date Sequence Insurance Name Policy Number Policy Mccarty Covered Member ID Mccarty Member ID Guarantor Name 01/09/2024 1 [place] [id number] Lamine Garcia [id number] Olya Buckner Jose Notes Date Note Type Note Provider Name and Address Organization Details Recorded Time 01/09/2024 text/html This is a 43 yea [...] (only taking sliding scale currently d/t limited diet)150-163=1z955-8 18=5c210-246=4l882-6 50=9uMounjaro 10mg qwk No recent episodes of hypoglycemia. [...] no increased urination; no blurred vision; no numbness/burning/tin gling of feet; no calluses on feet; no SOB; no heart palpitations/racing heart Reports: additional 24lb weight loss since last visit; aching in upper legs (on gabapentin) Chronic Complications:Diabet ic retinopathy: {{Yes No*}}Diabetic neuropathy: {{Yes* No}}Diabetic nephropathy: {{Yes No*}}Hypertens ion: {{Yes* No}}Hyperlipi demia: {{Yes* No}} ERIC PRECIADO, LUNCHEONETTE MANAGER [address], [place], [address], [facility] 01/09/2024 16:02:55 OBGyn Episode No OBEpisode recorded.
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
[2024-03-21 22:30] VITALS: BP 138/74; PULSE 87; O2SAT 97
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
[2024-03-21] MEDS: MORPHINE 4MG/ML SYRINGE 4 MG IV (22:45)
[2024-03-21] MEDS: ACETAMINOPHEN 1,000MG/100ML VIAL 1000 MG IV (22:45)
[2024-03-21] MEDS: METHOCARBAMOL 500MG TABLET 1000 MG PO (22:45)
[2024-03-21 22:53] LABS: Albumin Level 4.2 g/dl (3.5-5.0); Chloride 102 mmol/L (98-107); Sodium 137 mmol/L (136-145)
[2024-03-21 22:54] LABS: Potassium 3.6 mmoL/L (3.5-5.1)
[2024-03-21 22:56] LABS: Alanine Aminotransferase 23 U/L (12-78); Anion Gap 13.6 mEq/L (5-15); Aspartate Amino Transferase 23 U/L (14-36); Blood Urea Nitrogen 11 mg/dl (7-17); Carbon Dioxide 25 mmol/L (22.0-30.0); Creatinine Clearance Estimated 184 mL/min (50-200); Estimated Glomerular Filt Rate 134 ml/min (>60); GFR (African American) 162 ML/MIN (>60)
[2024-03-21 22:57] LABS: Albumin/Globulin Ratio 1.3 (1.1-1.8); Alkaline Phosphatase 139 U/L (38-126); Bilirubin,Total 0.5 mg/dl (0.2-1.3); Calcium 9.9 mg/dl (8.4-10.2); Globulin 3.3 g/dL (1.3-3.2); Glucose 359 mg/dl (74-100); Total Protein,Serum 7.5 g/dl (6.3-8.2)
[2024-03-21 22:59] LABS: HCG Qualitative, Serum Negative (Negative)
[2024-03-21] MEDS: IOPAMIDOL-370 (76%);100ML BOTTLE 80 ML IV (23:17)
[2024-03-21] MEDS: 0.9 % SODIUM CHLORIDE 50 ML VIAL IV (23:17)
[2024-03-21] MEDS: SODIUM CHLORIDE 0.9% 10ML SYR (RAD ONLY) 10 ML IV (23:17)
[2024-03-21 23:31] LABS: Basophils # 0.2 K/mm3 (0-0.2); Basophils % 1.7 % (0.1-2.0); Eosinophils # 0.2 K/mm3 (0.0-0.4); Eosinophils % 1.4 % (0.1-12.0); Hematocrit 43.2 % (37.0-47.0); Hemoglobin 14.4 g/dL (12.2-16.2); Lymphocytes # 5.8 K/mm3 (0.7-4.5); Lymphocytes % 43.2 % (10-50); Mean Corpuscular HGB Conc 33.2 g/dL (31.8-35.4); Mean Corpuscular Hemoglobin 30.5 pg (27.0-31.2); Mean Corpuscular Volume 91.7 fl (81-99); Mean Platelet Volume 8.1 fl (7.4-10.4); Monocytes # 1.3 K/mm3 (0.1-1.0); Monocytes % 9.6 % (1.7-9.3); Neutrophils # 5.9 K/mm3 (1.8-7.8); Neutrophils % 44.1 % (37.0-80.0); Platelet Count 517 K/mm3 (142-424); Red Blood Count 4.71 M/mm3 (4.20-5.40); Red Cell Distribution Width 14.4 % (11.5-17.5); White Blood Count 13.5 K/mm3 (4.8-10.8)
[2024-03-21 23:45] VITALS: BP 118/77; PULSE 85; O2SAT 96
[2024-03-22 00:02] VITALS: BP 116/81; PULSE 80; RESP 18; TEMP 36.6; O2SAT 98
== END 2024-03-22 00:09 | disposition home or self-care (01) ==
PROVIDERS: Emergency Provider Emergency Medicine; PCP Internal Medicine
DX: M54.9 Dorsalgia, unspecified (principal); R07.82 Intercostal pain; E11.65 Type 2 diabetes mellitus with hyperglycemia; V89.2XXA Person injured in unspecified motor-vehicle accident, traffic, initial encounter; Y93.89 Activity, other specified; Y92.415 Exit ramp or entrance ramp of street or highway as the place of occurrence of the external cause; Z79.85 Long-term (current) use of injectable non-insulin antidiabetic drugs
CPT/HCPCS: 71275; 74174; 80053; 84703; 85025; 96374; 96375; 99285; J0131; J2270; Q9967

== ENCOUNTER 2024-03-22 09:37 | Outpatient (CLI) | payer BC, SELFPAY ==
--- OUTSIDE RECORDS SUMMARY | 2024-03-22 09:40 | XMS_ITS | Encounter Summary ---
[facility] Address [address] [place] [address] Care Team Providers Care Yard Spotter Name Role Phone Unavailable Primary Care Provider Unavailabl e Encounter Details Date Type Department Care Team (Late st Contact Info) Description 03/23/2014 10:37 AM EST - 03/23/2014 11:59 PM EST Hospital Encounter [facility] [address] [facility] [address] [place] [address] Riky Hart MD [address] [facility] [address] [place] [address] Social History Tobacco Use Types Packs/Day Years [...] (03/23/2014 10:44 AM EST) Estradiol 17 pg/mL [facility] Comment: DF by IF @ 03/23/2014 11:32 Males: ?0.0-52.0 pg/mL Adult Female: ?Follicular Phase ? 11.0-165.0 pg/mL ?Midcycle ?146.0-526.0 pg/mL ?Luteal Phase ? 33.0-196.0 pg/mL ?Postmenopausal ?ND-37.0 pg/mL Blood specimen (specimen) 03/23/2014 10:44 AM EST Narrative [facility] - 03/23/2014 11:32 AM EST Specimen Type: Blood us Riky Hart MD LAB BLOOD ORDERABLES Final Resul t [facility] [address] [place] [address], documented in this encounter Visit Diagnoses Not on filedocumented in this encounter
--- OUTSIDE RECORDS SUMMARY | 2024-03-22 09:40 | XMS_ITS | Encounter Summary ---
Author Organization [facility] Address [address] [place] [address] Care Team Providers Care Wholesale Manager Name Role Phone Unavailable Primary Care Provider Unavailabl e Encounter Details Date Type Department Care Team (Late st Contact Info) Description 03/02/2014 10:43 AM EST - 03/02/2014 11:59 PM EST Hospital Encounter [facility] [address] [facility] [address] [place] [address] Riky Hart MD [address] [facility] [address] [place] [address] Social History Tobacco Use Types Packs/Day Years [...] (03/02/2014 10:46 AM EST) Estradiol 85 pg/mL [facility] Comment: DF by IF @ 03/02/2014 15:03 Males: ?0.0-52.0 pg/mL Adult Female: ?Follicular Phase ? 11.0-165.0 pg/mL ?Midcycle ?146.0-526.0 pg/mL ?Luteal Phase ? 33.0-196.0 pg/mL ?Postmenopausal ?ND-37.0 pg/mL Blood specimen (specimen) 03/02/2014 10:46 AM EST Narrative [facility] - 03/02/2014 3:03 PM EST Specimen Type: Blood us Riky Hart MD LAB BLOOD ORDERABLES Final Resul t [facility] [address] [place] [address], documented in this encounter Visit Diagnoses Not on filedocumented in this encounter
--- OUTSIDE RECORDS SUMMARY | 2024-03-22 09:40 | XMS_ITS | Encounter Summary ---
[facility] [address] [place] [address] Care Team Providers Care Music Education Adjunct Professor Name Role Phone Unavailable Primary Care Provider Unavailabl e Encounter Details Date Type Department Care Team (Late st Contact Info) Description 02/03/2014 11:19 AM EDT - 02/03/2014 11:59 PM EDT Hospital Encounter [facility] [address] [facility] [address] [place] [address] Riky Hart MD [address] [facility] [address] [place] [address] Social History Tobacco Use Types Packs/Day Years [...] (02/03/2014 11:21 AM EDT) Estradiol 244 pg/mL [facility] Comment: DF by IF @ 02/03/2014 12:36 Males: ?0.0-52.0 pg/mL Adult Female: ?Follicular Phase ? 11.0-165.0 pg/mL ?Midcycle ?146.0-526.0 pg/mL ?Luteal Phase ? 33.0-196.0 pg/mL ?Postmenopausal ?ND-37.0 pg/mL Blood specimen (specimen) 02/03/2014 11:21 AM EDT Narrative [facility] - 02/03/2014 12:36 PM EDT Specimen Type: Blood us Riky Hart MD LAB BLOOD ORDERABLES Final Resul t [facility] [address] [place] [id number], documented in this encounter Visit Diagnoses Not on filedocumented in this encounter
--- OUTSIDE RECORDS SUMMARY | 2024-03-22 09:40 | XMS_ITS | Encounter Summary ---
[facility] Address [address] [place] [address] Care Team Providers Care Plaster Mechanic Name Role Phone Unavailable Primary Care Provider Unavailabl e Encounter Details Date Type Department Care Team (Late st Contact Info) Description 03/30/2014 10:28 AM EST - 03/30/2014 11:59 PM EST Hospital Encounter [facility] [address] [facility] [address] [place] [address] Riky Hart MD [address] [facility] [address] [place] [address] Social History Tobacco Use Types Packs/Day Years [...] (03/30/2014 10:34 AM EST) Estradiol 102 pg/mL [facility] Comment: DF by IF @ 03/30/2014 11:33 Males: ?0.0-52.0 pg/mL Adult Female: ?Follicular Phase ? 11.0-165.0 pg/mL ?Midcycle ?146.0-526.0 pg/mL ?Luteal Phase ? 33.0-196.0 pg/mL ?Postmenopausal ?ND-37.0 pg/mL Blood specimen (specimen) 03/30/2014 10:34 AM EST Narrative [facility] - 03/30/2014 11:33 AM EST Specimen Type: Blood us Riky Hart MD LAB BLOOD ORDERABLES Final Resul t [facility] [address] [place] [address], documented in this encounter Visit Diagnoses Not on filedocumented in this encounter
--- OUTSIDE RECORDS SUMMARY | 2024-03-22 09:40 | XMS_ITS | Encounter Summary ---
[facility] Address [address] [place] [address] Care Team Providers Care Skin Grader Name Role Phone Unavailable Primary Care Provider Unavailabl e Encounter Details Date Type Department Care Team (Late st Contact Info) Description 01/29/2014 11:11 AM EDT - 01/29/2014 11:59 PM EDT Hospital Encounter [facility] [address] [facility] [address] [place] [address] Riky Hart MD [address]60 [facility] [address] [place] [address] Social History Tobacco Use Types Packs/Day Years [...] (01/29/2014 11:13 AM EDT) Estradiol 84 pg/mL [facility] Comment: DF by IF @ 01/29/2014 12:41 Males: ?0.0-52.0 pg/mL Adult Female: ?Follicular Phase ? 11.0-165.0 pg/mL ?Midcycle ?146.0-526.0 pg/mL ?Luteal Phase ? 33.0-196.0 pg/mL ?Postmenopausal ?ND-37.0 pg/mL Blood specimen (specimen) 01/29/2014 11:13 AM EDT Narrative [facility] - 01/29/2014 12:41 PM EDT Specimen Type: Blood us Riky Hart MD LAB BLOOD ORDERABLES Final Resul t [facility] [address] [place] [id number], documented in this encounter Visit Diagnoses Not on filedocumented in this encounter
--- OUTSIDE RECORDS SUMMARY | 2024-03-22 09:40 | XMS_ITS | Encounter Summary ---
[facility] Organization [facility] Address [address] [place] [address] Care Team Providers Care Woodenware Assembler Name Role Phone Unavailable Primary Care Provider Unavailabl e Encounter Details Date Type Department Care Team (Late st Contact Info) Description 04/02/2014 9:00 AM EST - 04/02/2014 11:59 PM EST Hospital Encounter [facility] [address] [facility] [address] [place] [address] Riky Hart MD [address] [facility] [address] [place] [address] Social History Tobacco Use Types Packs/Day Years [...] (04/02/2014 9:06 AM EST) Estradiol 233 pg/mL [facility] Comment: DF by IF @ 04/02/2014 11:23 Males: ?0.0-52.0 pg/mL Adult Female: ?Follicular Phase ? 11.0-165.0 pg/mL ?Midcycle ?146.0-526.0 pg/mL ?Luteal Phase ? 33.0-196.0 pg/mL ?Postmenopausal ?ND-37.0 pg/mL Blood specimen (specimen) 04/02/2014 9:06 AM EST Narrative [facility] - 04/02/2014 11:23 AM EST Specimen Type: Blood us Riky Hart MD LAB BLOOD ORDERABLES Final Resul t [facility] [address] [place] [address], documented in this encounter Visit Diagnoses Not on filedocumented in this encounter
--- OUTSIDE RECORDS SUMMARY | 2024-03-22 09:40 | XMS_ITS | Clinical Summary ---
Author Organization [facility] Address [address] [place] [address] Care Team Providers Care District Representative Name Role Phone Clyde Almodovar MD Primary [...] Most Recently Relevant to Health Maintenance Insurance [facility] PPO Care Teams District Representative Relationship Specialty Start Date End Date Clyde Almodovar MD [address] [place] [address] PCP - General Family Medicine 11/24/19
--- OUTSIDE RECORDS SUMMARY | 2024-03-22 09:40 | XMS_ITS | Encounter Summary ---
[facility] Address [address] [place] [address] Care Team Providers Care Tank Cleaning Supervisor Name Role Phone Unavailable Primary Care Provider Unavailabl e Encounter Details Date Type Department Care Team (Late st Contact Info) Description 12/09/2013 11:26 AM EDT - 12/09/2013 11:59 PM EDT Hospital Encounter [facility] [address] [facility] [address] [place] [address] Riky Hart MD [address]60 [facility] [address] [place] [address] Social History Tobacco Use Types Packs/Day Years [...] EDT) TSH 2.389 0.350 - 5.350 UIU/mL [facility] Comment: Specimens containing fluorescein can produce falsely depressed values with this assay. Patients undergoing fluorescein dye angiography should wait 72 hours post- treatment before testing. Blood specimen (specimen) 12/09/2013 11:28 AM EDT [facility] - 12/09/2013 1:44 PM EDT Specimen Type: Blood us Riky Hart MD LAB BLOOD ORDERABLES Final Resul t Performing Organization Address [facility] de Phone Number [facility] [address] [place] [address], * (ABNORMAL) CBC (No diff) (12/09/2013 11:28 AM EDT) WBC 11.19(H) 3.50 - 10.80 K/[facility] RBC 4.73 3.89 - 5.14 /[facility] Hemoglobin 14.1 11.5 - 15.5 g/dL [facility] Hematocrit 43.3 34.5 - 44.0 % [facility] MCV 91.5 80.0 - 99.0 fL [facility] MCH 29.8 27.0 - 31.0 pg [facility] MCHC 32.6 32.0 - 36.0 g/dL [facility] RDW-CV 13.8 11.3 - 14.5 % [facility] Platelets 381 150 - 450 K/[facility] Blood specimen (specimen) 12/09/2013 11:28 AM EDT [facility] - 12/09/2013 1:15 PM EDT Specimen Type: Blood us Riky Hart MD LAB BLOOD ORDERABLES Final Resul t Performing Organization Address [facility] de Phone Number [facility] [address] [place] [address], * Antibody Screen (12/09/2013 11:28 AM EDT) Antibody Screen Negative [facility] Blood specimen (specimen) 12/09/2013 11:28 AM EDT [facility] - 12/09/2013 1:54 PM EDT Specimen Type: Blood us Riky Hart MD BLOOD BANK TEST ORDERABLES Final Result Performing Organization Address City/[facility]/ZIP Co de Phone Number [facility] [address] [place] [address], * ABO/Rh (12/09/2013 11:28 AM EDT) ABORh O Rh Positive [facility] Blood specimen (specimen) 12/09/2013 11:28 AM EDT [facility] - 12/09/2013 1:54 PM EDT Specimen Type: Blood us Riky Hart MD BLOOD BANK TEST ORDERABLES Final Result Performing Organization Address [facility] [place] [address], documented in this encounter Visit Diagnoses Not on filedocumented in this encounter
--- OUTSIDE RECORDS SUMMARY | 2024-03-22 09:40 | XMS_ITS | Encounter Summary ---
[facility] Address [address] [place] [address] Care Team Providers Care Log Washer Name Role Phone Unavailable Primary Care Provider Unavailabl e Encounter Details Date Type Department Care Team (Late st Contact Info) Description 03/04/2014 11:10 AM EST - 03/04/2014 11:59 PM EST Hospital Encounter [facility] [address] [facility] [address] [place] [address] Riky Hart MD 1760 [facility] [address] [place] [address] Social History Tobacco Use Types Packs/Day Years [...] (03/04/2014 11:13 AM EST) Estradiol 179 pg/mL [facility] Comment: DF by IF @ 03/04/2014 21:43 Males: ?0.0-52.0 pg/mL Adult Female: ?Follicular Phase ? 11.0-165.0 pg/mL ?Midcycle ?146.0-526.0 pg/mL ?Luteal Phase ? 33.0-196.0 pg/mL ?Postmenopausal ?ND-37.0 pg/mL Blood specimen (specimen) 03/04/2014 11:13 AM EST Narrative [facility] - 03/04/2014 9:43 PM EST Specimen Type: Blood us Riky Hart MD LAB BLOOD ORDERABLES Final Resul t [facility] [address] [place] [address], documented in this encounter Visit Diagnoses Not on filedocumented in this encounter
--- OUTSIDE RECORDS SUMMARY | 2024-03-22 09:40 | XMS_ITS | Encounter Summary ---
[facility] Address [address] [place] [address] Care Team Providers Care Compliance Engineer Products Name Role Phone Unavailable Primary Care Provider Unavailabl e Encounter Details Date Type Department Care Team (Late st Contact Info) Description 02/24/2014 10:55 AM EDT - 02/24/2014 11:59 PM EDT Hospital Encounter [facility] [address] [facility] [address] [place] [address] Riky Hart MD [address]60 [facility] [address] [place] [address] Social History Tobacco Use Types Packs/Day Years [...] (02/24/2014 10:56 AM EDT) Estradiol 30 pg/mL [facility] Comment: DF by IF @ 02/24/2014 18:18 Males: ?0.0-52.0 pg/mL Adult Female: ?Follicular Phase ? 11.0-165.0 pg/mL ?Midcycle ?146.0-526.0 pg/mL ?Luteal Phase ? 33.0-196.0 pg/mL ?Postmenopausal ?ND-37.0 pg/mL Blood specimen (specimen) 02/24/2014 10:56 AM EDT Narrative [facility] - 02/24/2014 6:18 PM EDT Specimen Type: Blood us Riky Hart MD LAB BLOOD ORDERABLES Final Resul t [facility] [address] [place] [id number], documented in this encounter Visit Diagnoses Not on filedocumented in this encounter
--- OUTSIDE RECORDS SUMMARY | 2024-03-22 09:40 | XMS_ITS | Encounter Summary ---
Author Organization [facility] Address [address] [place] [address] Care Team Providers Care Bone Tender Name Role Phone Clyde Almodovar MD Primary Care Provider Reason for Referral * Diagnostic Imaging (Routine) - Closed Specialty Diagnoses / Procedures Referred By Contac t Referred To Contact Radiology Diagnoses Encounter for screening mammogram for breast cancer Procedures Mammo screening digital tomosynthesis bilateral w Jeannette Edwards MD [facility]0 [facility] [address] [place] [address] Phone: tel: fax: [facility] [address] [place] [address] Phone: tel: Referral ID Status Reason Start Date Expiration Date Visits Re quested Visits Authorized [id number] Closed 10/06/2019 10/05/2020 1 1 Reason for Visit * Diagnostic Imaging (Routine) - Closed Specialty Diagnoses / Procedures Referred By Contac t Referred To Contact Radiology Diagnoses Encounter for screening mammogram for breast cancer Procedures Mammo screening digital tomosynthesis bilateral w Jeannette Edwards MD [facility] [address] [place] [address] Phone: tel: fax: [facility] [address] [place] [address] Phone: tel: Referral ID Status Reason Start Date Expiration Date Visits Re quested Visits Authorized [id number] Closed 10/06/2019 10/05/2020 1 1 Encounter Details Date Type Department Care Team (Late st Contact Info) Description 11/24/2019 8:00 AM EDT - 11/24/2019 11:59 PM EDT Hospital Encounter [facility] [address] [place] [address] Jeannette Centeno MD [address] [place] [address] Encounter for screening mammogram for [...] cancer documented in this encounter Care Teams Bone Tender Relationship Specialty Start Date End Date Clyde Almodovar MD [facility]0 [facility] [address] [facility] 2 [place] [address] PCP - General Family Medicine 11/24/19 documented as of this encounter
[2024-03-22 10:41] LABS: Erythrocyte Sedimentation Rate 15 mm/hr (0-20)
[2024-03-22 10:43] LABS: Lactate Dehydrogenase 322 U/L (313-618)
== END 2024-03-22 23:59 | disposition home or self-care (01) ==
PROVIDERS: PCP Internal Medicine; Visit Provider Internal Medicine
DX: J35.01 Chronic tonsillitis (principal)
CPT/HCPCS: 36415; 83615; 85651

== ENCOUNTER 2024-04-04 08:45 | Outpatient (CLI) | payer BC, SELFPAY ==
--- OUTSIDE RECORDS SUMMARY | 2024-04-04 08:49 | XMS_ITS | Continuity of Care Document ---
Author Organization [facility] Address [address] [place] [address] Care Team Providers Care Sales Representative Publications Name Role Phone BRIAN SAUCEDA Primary Care Provider Assessment No assessment recorded. Plan of Treatment Reminders Order Date Submit Date Provider Last Modified By Organization Details Last Modified Time Details Appointments FOLLOW UP 15 2024 02:15P Gabriella Peter MD Not available Not available Not available Lab lui-b arr virus (ebv) IgG + IgM panel, serum [email or web address] [place] [address] Lab, [address] [place], [address], 03/31/2024 15:57:51 CBC w/ auto diff 2023 024 [facility] Lab, [address] [facility], [place], [address], 03/24/2024 14:31:13 CMP, serum or plasma 2023 024 [facility] Lab, [address] [facility], [place], [address], 03/24/2024 15:12:59 bcr-abl transloca tion, PCR, blood/bon e marrow [email or web address] Lab, [address] [place], [address], 03/31/2024 09:14:22 chronic leukemia panel, flow cytometry , unspecifi ed specimen [address] Lab, [address] [place], [address], 03/31/2024 09:14:22 jak2 (V617F) mutation, blood/tis millie [address] Lab, [address] [place], [address], 03/31/2024 15:57:51 TSH, serum or plasma [address] Lab, [address] [place], [address], 03/31/2024 09:14:23 ldh, serum or plasma 2023 024 [facility] Lab, [address] [place], [address], 03/24/2024 15:14:07 C-reactiv e protein, quantitat blake, serum or plasma [address] Lab, [address] [place], [address], 03/31/2024 09:14:22 ESR (erythroc yte sedimenta tion rate), blood [address] Lab, [address] [place], [address], 03/31/2024 09:14:23 iron + total iron-bind ing capacity (TIBC), serum [address] Lab, [address] [place], [address], 03/31/2024 09:14:23 iron saturatio n, serum [address] Lab, [address], [place], [address], 03/31/2024 09:14:23 Referral None recorded. Procedures None recorded. Surgeries None recorded. Imaging None recorded. Medication Orders None recorded. Patient TargetsNo targets recorded. Patient InstructionsNo instructions recorded. Reason for Referral None Reported. Results Created Date Observation Date Name Description Value Unit Range Abnormal Flag Note LastModifiedBy Organization Detail LastModifiedTime 03/24/20 24 12/24/2023 CT, neck, soft tissu e, w/ contr ast No observ ation record ed. [address] (Med Record) [address], [place], [address], 03/25/2024 12:35:45 03/24/20 24 12/24/2023 CT, neck, soft tissu e, w/ contr ast No observ ation record ed. [address] (Med Record) [address], [place], [address], 03/24/2024 13:14:12 03/24/20 24 12/24/2023 CT, neck, soft tissu e, w/ contr ast No observ ation record ed. [address] (Med Record) [address], [place], [address], 03/24/2024 15:29:00 03/24/20 24 12/24/2023 CT, neck, soft tissu e, w/ contr ast No observ ation record ed. [address] (Med Record) [address], [place], [address], 03/25/2024 15:41:42 Result Notes None recorded. Problems Name Problem SNOMED Code Status Onset Date Resolution Date Notes Provider Name and Address Organization Details Recorded Time Depressive disorder 29334341 Active [place] 4 13:08:29 High glucose level in blood 403319279 Active [place] 4 13:08:29 Anxiety 67809247 Active [place] 4 13:08:29 Problem Notes None recorded. Procedures Surgical History Date Name Laterality Status Provider Name and Address Organization Details Recorded Time appendectomy completed [place]ony [place] 03/24/2024 13:10:16 cholecystectomy completed [place]ony [place] 03/24/2024 13:10:29 splenectomy completed Mony DONNELLY [facility] & [place] 03/24/2024 13:11:09 tonsillectomy completed Mony DONNELLY [facility] & [place] 03/24/2024 13:15:07 Imaging Results None recorded. Procedure Notes None recorded. Medical Equipment None Reported. Allergies No known drug allergies Medications Name Sig Start Date Stop Date Status Note LastModified by Organization Details LastModified Time cyclobenzap rine 10 mg tablet 08/25 completed [...] Not Available Not Available No t Available methocarbam ol 500 mg tablet active Not Available Not Available Not Available doxepin 50 mg capsule TAKE 2 CAPSULES BY MOUTH IN THE EVENING 06/27 completed Not Available Not Available Not Available Augmentin 875 mg-125 mg tablet Take 1 tablet every 12 hours by oral route. 03/24 completed Not Available Not Available Not Available [...] 15 mg/5 mL (3 mg/mL) oral solution 03/24 completed Not Available Not Available Not Available azithromyci n 250 mg tablet TAKE [...] Not Available promethazin e 12.5 mg tablet Take 1 tablet twice a day by oral route. active Not Available Not Available No t [...] Available Not Available Not Available amoxicillin 500 mg-potassiu m clavulanate 125 [...] 2nd Gen Pen Needle 32 gauge x /32 USE 1 PEN NEEDLE 4 TIMES DAILY WITH INSULIN active Not Available Not Available No t Available Gvoke HypoPen 1-Pack 1 mg/0.2 mL [...] 5 mg/0.5 mL subcutaneou s pen injector 03/24 completed Not Available Not Available Not Available Mounjaro 10 mg/0.5 mL subcutaneou s pen injector INJECT 1 SYRINGE SUBCUTANE OUSLY ONCE A WEEK active Not Available Not Available No t Available Auvelity 45 mg-105 mg tablet, extended release TAKE 1 TABLET BY MOUTH TWICE DAILY FOR DEPRESSIO N active Not Available Not Available No t Available Dexcom G7 Lease Analyst USE DIRECTED active Not Available Not Available No t Available Dexcom G7 Sensor device CHANGE SENSOR EVERY 10 DAYS active Not Available Not Available No t Available Vitals Date Recorded Body height Body mass index (BMI) Body weight Oxygen saturation Oxygen saturation in Arterial blood by Pulse oximetry Heart rate Body temperature Systolic blood pressure Diastolic blood pressure Provider Name and Address Organization Details Last Updated DateTime 4 167.64 cm 28.1 kg/m2 52825.7 9 g 98 % 98 % 93 /min 97.8 [degF] 106 mm[Hg] 68 mm[Hg] Mony Morrison [facility] & [place] 13:15:40 Social History Question Answer Notes LastModified by Organizat ion Details LastModified Time Tobacco Smoking Status Never Smoker Mony Morrison [facility], [facility] & [place] 03/24/2024 13:09:48 What Is Your Level Of Alcohol Consumption? 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 No [email or web address] Information not available 03/24/2024 Sex: Female Functional Status None recorded. Mental Status None recorded. Family History Relationship Description Onset Age of this Age Resolved Age Notes LastModified by Organization Details LastModified Time Father Disorder of endocrine system pt. added direct ly (03/23) [email or web address] Not available 03/23/2024 14:25:04 Father Hypercholest erolemia pt. added direct ly (03/23) [email or web address] Not available 03/23/2024 14:25:42 Paternal Grandmother Disorder of endocrine system pt. added direct ly (03/23) [email or web address] Not available 03/23/2024 14:25:04 Paternal Grandmother Cerebrovascu lar accident pt. added direct ly (03/23) [email or web address] Not available 03/23/2024 14:26:08 Maternal Aunt Disorder of endocrine system pt. added direct ly (03/23) [email or web address]-13 Not available 03/23/2024 14:25:04 Paternal Uncle Disorder of endocrine system pt. added direct ly (03/23) [email or web address] Not available 03/23/2024 14:25:04 Maternal Grandfather Myocardial infarction pt. added direct ly (03/23) [email or web address] Not available 03/23/2024 14:25:15 Mother Myocardial infarction pt. added direct ly (03/23) [email or web address] Not available 03/23/2024 14:25:26 Medical History No medical history recorded. Gynecological HistoryNo gynecological history recorded. Obstetrics History GPAL:G 0 P 0 0 0 0 Immunizations Vaccine Type Date Status Provider Name and Address Organization Details Recorded Time Influenza, split virus, quadrivalent, preservative 03/09/2022 completed [place] [facility] [place] 03/24/2024 13:08:33 Influenza, recombinant, quadrivalent, PF 02/15/2020 completed M[place] [facility] [place] 03/24/2024 13:08:33 Influenza, live, trivalent, intranasal 01/27/2013 completed M[place] [facility] [place] 03/24/2024 13:08:33 COVID-19, mRNA, LNP-S, PF, 100 mcg/0.5mL dose or 50 mcg/0.25mL dose 05/14/2020 completed M[place] [facility] [place] [facility] [place] 03/24/2024 13:08:33 COVID-19, mRNA, LNP-S, PF, 100 mcg/0.5mL dose or 50 mcg/0.25mL dose 07/09/2020 completed M[place] [facility] [place] 03/24/2024 13:08:33 Tdap 08/28/2017 completed M[place] [facility] [place] 03/24/2024 13:08:33 Pneumococcal conjugate PCV 13 09/04/2017 completed M[place] [facility] [place] 03/24/2024 13:08:33 meningococcal MCV4P 08/22/2017 completed Mony niet[place], [place] [facility] [place] 03/24/2024 13:08:33 Influenza, split virus, quadrivalent, PF 12/31/2013 completed Mony nieto, [place] [facility] [place] 03/24/2024 13:08:33 Influenza, split virus, quadrivalent, PF 02/02/2019 completed Mony nieto, [place] [facility] [place] 03/24/2024 13:08:33 Past Encounters Encounter ID Performer Location Encounter Start Date Encounter Closed Date Diagnosis/Indication Diagnosis SNOMED-CT Code Diagnosis ICD10 Code [id number] Magnolia Nagel PA-C [facility] [address] [facility] [address] [place] [address] 03/24/2024 13:00:40 03/24/2024 13:46:29 Leukocytosis 773053458 D72.829 Thrombocytosis 3420512 D 75.839 Cervical lymphadenopathy 306317471 R59.0 Unintentio nal weight loss 407207431 R63.4 History of splenectomy 121272880 Z90.81 Chronic tonsillitis 9097 9004 J35.01 Health Concerns Section Related Observation LastModified by Organization Detai ls LastModified Time None Recorded Concern Status LastModified by Organization Details LastModified Time None Recorded Payers Encounter Date Sequence Insurance Name Policy Number Policy Mccarty Covered Member ID Mccarty Member ID Guarantor Name 03/24/2024 1 BCBS-ID: [employer] [place] BLUE ACCESS (PPO) [id number] Lamine Garcia [id number] Olya Garcia Notes Date Note Type Note Provider Name and Address Organization Details Recorded Time 03/24/2024 text/html 43 year old fema le for evaluation of cervical lymphadenopathy leukocytosis and thrombocytosis. Patient has had recurrent tonsillitis. Patient was hospitalized with pneumonia in November 2023. She has had cervical lymphadenopathy and was evaluated by ENT at [facility]. ENT recommended tonsillectomy. She is scheduled for tonsillectomy April 07, 2024. She has not had a biopsy of the cervical lymph nodes. Chest CT scan performed on December 23, 2023 with evidence of pneumonia. No lymphadenopathy. CT neck with extensive cervical and submandibular adenopathy. More numerous than would normally be expected. Right super clavicular adenopathy as well. The largest anterior cervical node measured up to 2.3 cm in size. Negative chest x-ray on February 19, 2024. CT soft tissue neck on February 25, 2024 bilateral lymphadenopathy with improvement since December 17. Persistent enlarged lymph node within the left upper jugular chain measuring 7 mm, 12 mm. This also demonstrates improvement. Previous pneumonia resolved. CT neck soft tissue more March 07, 2024 with mild prominence of tonsils bilaterally no evidence of abscess. No other inflammatory changes in the pharynx. Mildly enlarged cervical lymph nodes bilaterally most likely reactive. The largest is left side lymph node measuring 1.9 x 1 cm.Patient was treated on March 07, 2024 for tonsillitis. Negative chest abdomen and pelvis CTA on March 21, 2024. No evidence of lymphadenopathy. She has lost about 40 lbs. since August 2023 due to recurrent tonsillitis and pain when eating. She does have fatigue. She states she has had mono in the past. 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 Discussed thrombocytosis likely secondary to splenectomy. Denies any fever or chills. She does have pain in her neck with swallowing. Labs performed per primary care provider on February 11, 2024 with white blood cell count 14.5. White blood cell count 4.85. Hemoglobin 15.1 hematocrit 44.7. MCV 92. Normal MCH and MCHC. Platelet count 315571. Differential with absolute lymphocyte count 5.4. No evidence of chronic kidney disease. Normal liver enzymes. She does not smoke or drink alcohol. Her great grandmother had lung cancer. No other family history malignancy or blood disorders. Patient is scheduled for tonsillectomy on April 07, 2024. Cervical lymphadenopathy likely secondary to chronic tonsillitis. Will see if patient can have a biopsy on the left side cervical lymph node noted on her March 07, 2024 scan when she has tonsillectomy. She states she does receive steroids when she has a flare up tonsillitis. Leukocytosis most likely secondary to inflammation and steriod use from tonsillitis. Will order labs for further evaluation of lymphadenopathy. Will follow up with further recommendations. Will order labs for further evaluation of lymphadenopathy. Will follow up with further recommendations. Magnolia Nagel PA-C [address], [place], [address], [place] [facility] [place] 03/24/2024 14:22:20 OBGyn Episode No OBEpisode recorded.
--- OUTSIDE RECORDS SUMMARY | 2024-04-04 08:50 | XMS_ITS | Encounter Summary ---
[facility] [address] [place] [address] Care Team Providers Care Special Collections Librarian Name Role Phone Unavailable Primary Care Provider Unavailabl e Encounter Details Date Type Department Care Team (Late st Contact Info) Description 02/24/2014 10:55 AM EDT - 02/24/2014 11:59 PM EDT Hospital Encounter [facility] [address] [facility] [address] [place] [address] Riky Hart MD [address] [facility] [address] [place] [address] Social History Tobacco Use Types Packs/Day Years [...] (02/24/2014 10:56 AM EDT) Estradiol 30 pg/mL [facility] Comment: DF by IF @ 02/24/2014 18:18 Males: ?0.0-52.0 pg/mL Adult Female: ?Follicular Phase ? 11.0-165.0 pg/mL ?Midcycle ?146.0-526.0 pg/mL ?Luteal Phase ? 33.0-196.0 pg/mL ?Postmenopausal ?ND-37.0 pg/mL Blood specimen (specimen) 02/24/2014 10:56 AM EDT Narrative [facility] - 02/24/2014 6:18 PM EDT Specimen Type: Blood us Riky Hart MD LAB BLOOD ORDERABLES Final Resul t [facility] [address] [place] [id number], documented in this encounter Visit Diagnoses Not on filedocumented in this encounter
--- OUTSIDE RECORDS SUMMARY | 2024-04-04 08:50 | XMS_ITS | Encounter Summary ---
[facility] [address] [place] [address] Care Team Providers Care Skin Lifter Bacon Name Role Phone Unavailable Primary Care Provider Unavailabl e Encounter Details Date Type Department Care Team (Late st Contact Info) Description 02/03/2014 11:19 AM EDT - 02/03/2014 11:59 PM EDT Hospital Encounter [facility] [address] [facility] [address] [place] [address] Riky Hart MD [address] [facility] [address] [place] [address] Social History Tobacco Use Types Packs/Day Years [...] (02/03/2014 11:21 AM EDT) Estradiol 244 pg/mL [facility] Comment: DF by IF @ 02/03/2014 12:36 Males: ?0.0-52.0 pg/mL Adult Female: ?Follicular Phase ? 11.0-165.0 pg/mL ?Midcycle ?146.0-526.0 pg/mL ?Luteal Phase ? 33.0-196.0 pg/mL ?Postmenopausal ?ND-37.0 pg/mL Blood specimen (specimen) 02/03/2014 11:21 AM EDT Narrative [facility] - 02/03/2014 12:36 PM EDT Specimen Type: Blood us Riky Hart MD LAB BLOOD ORDERABLES Final Resul t [facility] [address] [place] [id number], documented in this encounter Visit Diagnoses Not on filedocumented in this encounter
--- OUTSIDE RECORDS SUMMARY | 2024-04-04 08:50 | XMS_ITS | Encounter Summary ---
[facility] [address] [place] [address] Care Team Providers Care It Support Engineer Name Role Phone Unavailable Primary Care Provider Unavailabl e Encounter Details Date Type Department Care Team (Late st Contact Info) Description 12/09/2013 11:26 AM EDT - 12/09/2013 11:59 PM EDT Hospital Encounter [facility] [address] [facility] [address] [place] [address] Riky Hart MD [address] [facility] [address] [place] [address] Social History Tobacco Use Types Packs/Day Years [...] EDT) TSH 2.389 0.350 - 5.350 UIU/mL [facility] Comment: Specimens containing fluorescein can produce falsely depressed values with this assay. Patients undergoing fluorescein dye angiography should wait 72 hours post- treatment before testing. Blood specimen (specimen) 12/09/2013 11:28 AM EDT [facility] - 12/09/2013 1:44 PM EDT Specimen Type: Blood us Riky Hart MD LAB BLOOD ORDERABLES Final Resul t Performing Organization Address [facility] de Phone Number [facility] [address] [place] [address], * (ABNORMAL) CBC (No diff) (12/09/2013 11:28 AM EDT) WBC 11.19(H) 3.50 - 10.80 K/[facility] RBC 4.73 3.89 - 5.14 /[facility] Hemoglobin 14.1 11.5 - 15.5 g/dL [facility] Hematocrit 43.3 34.5 - 44.0 % [facility] MCV 91.5 80.0 - 99.0 fL [facility] MCH 29.8 27.0 - 31.0 pg [facility] MCHC 32.6 32.0 - 36.0 g/dL [facility] RDW-CV 13.8 11.3 - 14.5 % [facility] Platelets 381 150 - 450 K/[facility] Blood specimen (specimen) 12/09/2013 11:28 AM EDT [facility] - 12/09/2013 1:15 PM EDT Specimen Type: Blood us Riky Hart MD LAB BLOOD ORDERABLES Final Resul t Performing Organization Address [facility] de Phone Number [facility] [address] [place] [address], * Antibody Screen (12/09/2013 11:28 AM EDT) Antibody Screen Negative [facility] Blood specimen (specimen) 12/09/2013 11:28 AM EDT [facility] - 12/09/2013 1:54 PM EDT Specimen Type: Blood us Riky Hart MD BLOOD BANK TEST ORDERABLES Final Result Performing Organization Address City/[facility]/ZIP Co de Phone Number [facility] [address] [place] [address], * ABO/Rh (12/09/2013 11:28 AM EDT) ABORh O Rh Positive [facility] Blood specimen (specimen) 12/09/2013 11:28 AM EDT [facility] - 12/09/2013 1:54 PM EDT Specimen Type: Blood us Riky Hart MD BLOOD BANK TEST ORDERABLES Final Result Performing Organization Address [facility] [place] [address], documented in this encounter Visit Diagnoses Not on filedocumented in this encounter
--- OUTSIDE RECORDS SUMMARY | 2024-04-04 08:50 | XMS_ITS | Encounter Summary ---
Author Organization [facility] Address [address] [place] [address] Care Team Providers Care Data Center Architect Name Role Phone Clyde Almodovar MD Primary Care Provider Reason for Referral * Diagnostic Imaging (Routine) - Closed Specialty Diagnoses / Procedures Referred By Contac t Referred To Contact Radiology Diagnoses Encounter for screening mammogram for breast cancer Procedures Mammo screening digital tomosynthesis bilateral w Jeannette Edwards MD [facility] [address] [place] [address] Phone: tel: fax: [facility] [address] [place] [address] Phone: tel: Referral ID Status Reason Start Date Expiration Date Visits Re quested Visits Authorized [id number] Closed 10/06/2019 10/05/2020 1 1 Reason for Visit * Diagnostic Imaging (Routine) - Closed Specialty Diagnoses / Procedures Referred By Contac t Referred To Contact Radiology Diagnoses Encounter for screening mammogram for breast cancer Procedures Mammo screening digital tomosynthesis bilateral w Jeannette Edwards MD [facility] [address] [place] [address] Phone: tel: fax: [facility] [address] [place] [address] Phone: tel: Referral ID Status Reason Start Date Expiration Date Visits Re quested Visits Authorized [id number] Closed 10/06/2019 10/05/2020 1 1 Encounter Details Date Type Department Care Team (Late st Contact Info) Description 11/24/2019 8:00 AM EDT - 11/24/2019 11:59 PM EDT Hospital Encounter [facility] [address] [place] [address] Jeannette Centeno MD [address] [place] [address] [place] [address] Encounter for screening mammogram for [...] cancer documented in this encounter Care Teams Data Center Architect Relationship Specialty Start Date End Date Clyde Almodovar MD [facility] [address] [facility] [address] [place] [address] PCP - General Family Medicine 11/24/19 documented as of this encounter
--- OUTSIDE RECORDS SUMMARY | 2024-04-04 08:50 | XMS_ITS | Encounter Summary ---
[facility] Address [address] [place] [address] Care Team Providers Care Sewing Line Baler Name Role Phone Unavailable Primary Care Provider Unavailabl e Encounter Details Date Type Department Care Team (Late st Contact Info) Description 01/29/2014 11:11 AM EDT - 01/29/2014 11:59 PM EDT Hospital Encounter [facility] [address] [facility] [address] [place] [address] Riky Hatr MD [address] [facility] [address] [place] [address] Social History Tobacco Use Types Packs/Day Years [...] (01/29/2014 11:13 AM EDT) Estradiol 84 pg/mL [facility] Comment: DF by IF @ 01/29/2014 12:41 Males: ?0.0-52.0 pg/mL Adult Female: ?Follicular Phase ? 11.0-165.0 pg/mL ?Midcycle ?146.0-526.0 pg/mL ?Luteal Phase ? 33.0-196.0 pg/mL ?Postmenopausal ?ND-37.0 pg/mL Blood specimen (specimen) 01/29/2014 11:13 AM EDT Narrative [facility] - 01/29/2014 12:41 PM EDT Specimen Type: Blood us Riky Hart MD LAB BLOOD ORDERABLES Final Resul t [facility] [address] [id number], documented in this encounter Visit Diagnoses Not on filedocumented in this encounter
--- OUTSIDE RECORDS SUMMARY | 2024-04-04 08:50 | XMS_ITS | Encounter Summary ---
[facility] Address [address] [place] [address] Care Team Providers Care Maintenance Representative Name Role Phone Unavailable Primary Care Provider Unavailabl e Encounter Details Date Type Department Care Team (Late st Contact Info) Description 04/02/2014 9:00 AM EST - 04/02/2014 11:59 PM EST Hospital Encounter [facility] [address] [facility] [address] [place] [address] Riky Hart MD [address] [facility] [address] [place] [address] Social History Tobacco Use Types Packs/Day Years [...] (04/02/2014 9:06 AM EST) Estradiol 233 pg/mL [facility] Comment: DF by IF @ 04/02/2014 11:23 Males: ?0.0-52.0 pg/mL Adult Female: ?Follicular Phase ? 11.0-165.0 pg/mL ?Midcycle ?146.0-526.0 pg/mL ?Luteal Phase ? 33.0-196.0 pg/mL ?Postmenopausal ?ND-37.0 pg/mL Blood specimen (specimen) 04/02/2014 9:06 AM EST Narrative [facility] - 04/02/2014 11:23 AM EST Specimen Type: Blood us Riky Hart MD LAB BLOOD ORDERABLES Final Resul t [facility] [address] [place] [address], documented in this encounter Visit Diagnoses Not on filedocumented in this encounter
--- OUTSIDE RECORDS SUMMARY | 2024-04-04 08:50 | XMS_ITS | Continuity of Care Document ---
Author Organization [facility] [place] Address [address] [place] [address] Care Team Providers Care Capability Lead Name Role Phone JESS MAHMOOD Primary Care Provider [phone] Assessment No assessment recorded. Plan of Treatment Reminders Order Date Submit Date Provider Last Modified By Organization Details Last Modified Time Details Appointments RECHECK 2023 01:45P M ERIC PRECIADO MACHINE DYER Not available Not available Not available DERMATOLO GY VISIT 2024 01:00P M OLIVER SCHMIDT MD Not available Not available Not available Lab CBC w/ auto diff 2023 [facility], [address] [place] [address], [phone], 04/04/2024 04:29:10 CMP, serum or plasma 2023 024 [facility], [address] [place] [address], [phone], 04/04/2024 04:29:12 ESR (erythroc yte sedimenta tion rate), blood 2023 024 [facility], [address] [place] [address], [phone], 04/04/2024 04:29:13 ldh, serum or plasma 2023 024 [facility], [address] [place] [address], [phone], 04/04/2024 04:29:15 Referral hematolog ist/oncol ogist referral 2023 ENRICO Peter MD, [address] [place] [address], [facility] [address], [address], 03/24/2024 14:24:31 Procedures None recorded. Surgeries None recorded. Imaging None recorded. Medication Orders ceftriaxo ne 500 mg solution for injection 2023 [email or web address] Not available 03/24/2024 13:57:18 Augmentin 875 mg-125 mg tablet 2023 [facility] 591, [address], [address], 03/24/2024 13:57:19 promethaz ine 12.5 mg tablet 2023 [facility], [address], [address], 03/07/2024 11:24:34 Patient TargetsNo targets recorded. Patient InstructionsNo instructions recorded. Reason for Referral Referring Physician: Brian Hoyt, Internal Medicine, Encounter Date: 03/07/2024 Results Created Date Observation Date Name Description Value Unit Range Abnormal Flag Note LastModifiedBy Organization Detail LastModifiedTime 02/22/2002/19/2024 XR, chest , 2 view No observ ation record ed. [email or web address] Not Available 2023 11:35:26 03/24/2003/07/2024 CT, neck, soft tissu e, w/ contr ast No observ ation record ed. [email or web address] Not Available 15:36:15 Result Notes None recorded. Problems Name Problem SNOMED Code Status Onset Date Resolution Date Notes Provider Name and Address Organization Details Recorded Time High glucose level in blood 224974084 Active 2020 Not Available [facility] 3 06:18:45 Depressive disorder 85351983 Active 2023 BRIAN MORALES LL, DO [address] [place], [address] , [facility] 4 11:08:24 Anxiety 98310199 Active 2023 BRIANCRISTY DE, DO [address] [place], [address] , [facility] 4 11:08:34 Cervical lymphadenopat hy 660442754 Active 2023 BRIAN DE, DO [address] [place], [address] , [facility] 4 14:17:23 Chronic tonsillitis 73695924 Active 2023 BRIAN DE, DO [address] [place], [address] , [facility] 4 14:17:24 Problem Notes None recorded. Procedures Surgical History Date Name Laterality Status Provider Name and Address Organization Details Recorded Time procedure on spleen completed [facility] 02/17/2021 09:40:19 procedure on gallbladder completed [facility] 02/17/2021 09:40:30 endoscopic procedure on spleen completed [facility] 02/17/2021 09:40:59 procedure on appendix completed [facility] 02/17/2021 09:41:08 Imaging Results None recorded. [...] Not Available Not Available No t Available [employer] Ultra Test strips USE 1 STRIP TO [...] injection Take 500 mg by injection route. 03/24 completed Not Available Not Available Not Available gabapentin 100 mg capsule TAKE 2 CAPSULES [...] 1 TABLET BY MOUTH EVERY 12 HOURS 03/24 completed Not Available Not Available Not [...] 10 mg/0.5 mL subcutaneou s pen injector Inject by subcutane ous route for 84 days. active Not Available Not Available No t Available Auvelity 45 mg-105 mg tablet, extended release TAKE 1 TABLET BY MOUTH TWICE DAILY FOR DEPRESSIO N active Not Available Not Available No t Available Dexcom G7 Aging Department Supervisor USE DIRECTED active Not Available Not [...] Updated DateTime 4 167.64 cm 28.4 kg/m2 93033.6 6 g 103 /min 96 % 96 % 98.7 [degF] 116 mm[Hg] 70 mm[Hg] Karly Manan [facility] 4 11:04:27 Social History Question Answer Notes LastModified by Organizat ion Details LastModified Time Tobacco Smoking Status Never Smoker [facility] 02/17/2021 09:40:01 What Is Your Level Of Alcohol Consumption? None [email or web address] Information not available 02/17/2021 What Is Your Level Of Caffeine Consumption? Moderate Information not available 02/17/2021 What Was The Date Of Your Most Recent Tobacco Screening? 09/22/2021 [email or web address] Information not available 09/22/2021 Do You Use Any Illicit Or Recreational Drugs? No [email or web address] Information not available 02/17/2021 Has Tobacco Cessation Counseling Been Provided? No [email or web address] Information not available 02/17/2021 Do You Or Have You Ever Used Any Other Forms Of Tobacco Or Nicotine? No [email or web address] Information not available 02/17/2021 Sex: Female Functional Status None recorded. Mental Status None recorded. Family History Relationship Description Onset Age of this Age Resolved Age Notes LastModified by Organization Details LastModified Time Father Diabetes mellitus [email or web address] Not available 2020 09:39:02 Father Family history of malignant neoplasm [email or web address] Not available 2020 09:39:45 Maternal Grandmother Family history of stroke [email or web address] Not available 2020 09:39:27 Medical History No medical history recorded. Gynecological HistoryNo gynecological history recorded. Obstetrics History GPAL:G 0 P 0 0 0 0 Immunizations Vaccine Type Date Status Provider Name and Address Organization Details Recorded Time Influenza, split virus, quadrivalent, preservative 03/09/2022 completed Honey Rodri [facility] 01/09/2024 14:56:25 Influenza, recombinant, quadrivalent, PF 02/15/2020 completed Honey Rodri [facility] 01/09/2024 14:56:25 Influenza, live, trivalent, intranasal 01/27/2013 completed Honey Rodri [facility] 01/09/2024 14:56:25 Tdap 08/28/2017 completed Honey Rodri [facility] 01/09/2024 14:56:25 Pneumococcal conjugate PCV 13 09/04/2017 completed Honey Rodri [facility] 01/09/2024 14:56:25 meningococcal MCV4P 08/22/2017 [facility] 01/09/2024 14:56:25 Influenza, split virus, quadrivalent, PF 12/31/2013 completed Honey Rodri [facility] 01/09/2024 14:56:25 Influenza, split virus, quadrivalent, PF 02/02/2019 completed Honey Rodri [facility] 01/09/2024 14:56:25 COVID-19, mRNA, LNP-S, PF, 100 mcg/0.5mL dose or 50 mcg/0.25mL dose 05/14/2020 completed Honey Rodri [facility] 01/09/2024 14:56:25 COVID-19, mRNA, LNP-S, PF, 100 mcg/0.5mL dose or 50 mcg/0.25mL dose 07/09/2020 completed Honey Rodri [facility] 01/09/2024 14:56:25 Past Encounters Encounter ID Performer Location Encounter Start Date Encounter Closed Date Diagnosis/Indication Diagnosis SNOMED-CT Code Diagnosis ICD10 Code [id number] BRIAN ANDREW DE, DO [facility] [address] [place] [address] 02/11/2024 10:29:20 02/11/2024 11:25:08 History of splenectomy 919651830 Z90.81 Uncontroll ed type 2 diabetes mellitus 030371840 E11.65 Anxiety 40790662 F41.9 Depressive disorder 3548 9007 F32.A Chronic tonsillitis 9097 9004 J35.01 Polyneuropathy 66534017 G62.9 Illness 59433810 R69 [id number] BRIAN ANDREW DE, DO [facility] [address] [place] [address] 03/07/2024 10:53:49 03/07/2024 12:09:21 Chronic tonsillitis 09562299 J35.01 Cervical lymphadenopathy 804337249 R59.0 Uncontroll ed type 2 diabetes mellitus 297245696 E11.65 Abnormal weight loss 267 523291 R63.4 Health Concerns Section Related Observation LastModified by Organization Detai ls LastModified Time None Recorded Concern Status LastModified by Organization Details LastModified Time None Recorded Payers Encounter Date Sequence Insurance Name Policy Number Policy Mccarty Covered Member ID Mccarty Member ID Guarantor Name 03/07/2024 1 [facility]PPO[facility] [id number] Lamine Garcia [id number] Olya Garcia Notes Date Note Type Note Provider Name and Address Organization Details Recorded Time 03/07/2024 text/html Patient is 43-year-old female here for acute visit, she has poorly controlled diabetes, has had recurrent infections, pneumonia, for which recently had hospitalization, she has this weird cervical lymphadenopathy, has been evaluated by ENT at [facility], follow-up CT looked improved, ENT [...] She feels dehydrated BRIAN HOYT, DO [address] [facility] [place], [address], [facility] 03/07/2024 12:56:05 OBGyn Episode No OBEpisode recorded.
--- OUTSIDE RECORDS SUMMARY | 2024-04-04 08:50 | XMS_ITS | Continuity of Care Document ---
Author Organization [facility] [place] Address [address] [place] [address] Care Team Providers Care Feather Sawyer Name Role Phone JESS MAHMOOD Primary Care Provider [phone] Assessment No assessment recorded. Plan of Treatment Reminders Order Date Submit Date Provider Last Modified By Organization Details Last Modified Time Details Appointments RECHECK 2023 01:45P M ERIC PRECIADO APRN Not available Not available Not available DERMATOLO GY VISIT 2024 01:00P M OLIVER SCHMIDT MD Not available Not available Not available Lab None recorded. Referral None recorded. Procedures None recorded. Surgeries [...] record ed. [email or web address] Not Available 2023 11:35:26 03/24/20 24 03/07/2024 CT, neck, soft tissu e, w/ contr ast No observ ation record ed. [email or web address] Not Available 15:36:15 Result Notes None recorded. Problems Name Problem SNOMED Code Status Onset Date Resolution Date Notes Provider Name and Address Organization Details Recorded Time High glucose level in blood 115670390 Active 2020 Not Available [facility] 06:18:45 Depressive disorder 36808841 Active 2023 BRIAN MORALES LL, DO [address] [place], [address] , [facility] 4 11:08:24 Anxiety 80951629 Active 2023 BRIAN DE, DO [address] [place], [address] , [facility] 4 11:08:34 Cervical lymphadenopat hy 286889321 Active 2023 BRIAN DE, DO [address] [place], [address] , [facility] 4 14:17:23 Chronic tonsillitis 21361189 Active 2023 BRIAN DE, DO [address] [place], [address] , [facility] 4 14:17:24 Problem Notes None recorded. Procedures Surgical History Date Name Laterality Status Provider Name and Address Organization Details Recorded Time procedure on spleen completed [facility] 02/17/2021 09:40:19 procedure on gallbladder completed [facility] 02/17/2021 09:40:30 endoscopic procedure on spleen completed [facility] 02/17/2021 09:40:59 procedure on appendix completed [facility] 02/17/2021 09:41:08 Imaging Results None recorded. [...] Not Available Not Available No t Available [employer] Ultra Test strips USE 1 STRIP TO [...] Not Available No t Available Dexcom G7 Powder Coat Painter USE DIRECTED active Not Available Not Available [...] Updated DateTime 4 167.64 cm 28.1 kg/m2 34549.1 7 g 97 /min 95 % 95 % 112 mm[Hg] 72 mm[Hg] Karly Hinkle [facility] 4 13:59:22 Social History Question Answer Notes LastModified by Organizat ion Details LastModified Time Tobacco Smoking Status Never Smoker Natividad Florentin nieto, [facility] 02/17/2021 09:40:01 What Is Your Level Of Alcohol Consumption? None Information not available 02/17/2021 What Is Your Level Of Caffeine Consumption? Moderate [email or web address] Information not available 02/17/2021 What Was The Date Of Your Most Recent Tobacco Screening? 09/22/2021 [email or web address] Information not available 09/22/2021 Do You Use Any Illicit Or Recreational Drugs? No [email or web address] Information not available 02/17/2021 Has Tobacco Cessation Counseling Been Provided? No Information not available 02/17/2021 Do You Or Have You Ever Used Any Other Forms Of Tobacco Or Nicotine? No [email or web address] Information not available 02/17/2021 Sex: Female Functional Status None recorded. Mental Status None recorded. Family History Relationship Description Onset Age of this Age Resolved Age Notes LastModified by Organization Details LastModified Time Father Diabetes mellitus [email or web address] Not available 2020 09:39:02 Father Family history of malignant neoplasm [email or web address] Not available 2020 09:39:45 Maternal Grandmother Family history of stroke [email or web address] Not available 2020 09:39:27 Medical History No medical history recorded. Gynecological HistoryNo gynecological history recorded. Obstetrics History GPAL:G 0 P 0 0 0 0 Immunizations Vaccine Type Date Status Provider Name and Address Organization Details Recorded Time Influenza, split virus, quadrivalent, preservative 03/09/2022 completed Honey Rod[facility] 01/09/2024 14:56:25 Influenza, recombinant, quadrivalent, PF 02/15/2020 completed Honey Rodri [facility] 01/09/2024 14:56:25 Influenza, live, trivalent, intranasal 01/27/2013 completed Honey Rodri [facility] 01/09/2024 14:56:25 Tdap 08/28/2017 completed Honey Rodri [facility] 01/09/2024 14:56:25 Pneumococcal conjugate PCV 13 09/04/2017 completed Honey Rodri [facility] 01/09/2024 14:56:25 meningococcal MCV4P 08/22/2017 completed Honey Ri ck [facility] 01/09/2024 14:56:25 Influenza, split virus, quadrivalent, PF 12/31/2013 completed Honey Rodri [facility] 01/09/2024 14:56:25 Influenza, split virus, quadrivalent, PF 02/02/2019 completed Honey Rodri [facility] 01/09/2024 14:56:25 COVID-19, mRNA, LNP-S, PF, 100 mcg/0.5mL dose or 50 mcg/0.25mL dose 05/14/2020 completed Honey Rodri [facility] 01/09/2024 14:56:25 COVID-19, mRNA, LNP-S, PF, 100 mcg/0.5mL dose or 50 mcg/0.25mL dose 07/09/2020 completed Honey Rodri [facility] 01/09/2024 14:56:25 Past Encounters Encounter ID Performer Location Encounter Start Date Encounter Closed Date Diagnosis/Indication Diagnosis SNOMED-CT Code Diagnosis ICD10 Code [id number] BRIAN ANDREW DE, DO [facility] [address] [facility] [place] [address] 03/07/2024 10:53:49 03/07/2024 12:09:21 Chronic tonsillitis 89516337 J35.01 Cervical lymphadenopathy 427448081 R59.0 Uncontroll ed type 2 diabetes mellitus 705279888 E11.65 Abnormal weight loss 267 456258 R63.4 [id number] BRIAN ANDREW DE, DO [facility] N [address] [place] [address] 03/24/2024 13:52:01 03/24/2024 14:29:03 Chronic tonsillitis 14082301 J35.01 Cervical lymphadenopathy 975295542 R59.0 Uncontroll ed type 2 diabetes mellitus 992161929 E11.65 Recurrent major depression 56744670 F33.9 Health Concerns Section Related Observation LastModified by Organization Detai ls LastModified Time None Recorded Concern Status LastModified by Organization Details LastModified Time None Recorded Payers Encounter Date Sequence Insurance Name Policy Number Policy Mccarty Covered Member ID Mccarty Member ID Guarantor Name 03/24/2024 1 [facility]: [employer] [place] BLUE ACCESS (PPO) [id number] Lamine Garcia [id number] Olya Garcia Notes Date Note Type Note Provider Name and Address Organization Details Recorded Time 03/24/2024 text/html Patient is 43-year-old female here for follow-up visit, she has suspected chronic tonsillitis, has chronically enlarged cervical lymph nodes as well, planning to have tonsillectomy, I want her to see what oncology thought about the lymph nodes, they are in agreement with the tonsillectomy, but would like a lymph node biopsy as well. All her labs have looked okay, repeat CT looked okay, saw her last week she was weak and dehydrated she went to the emergency department, labs looked okay, she was given fluid and felt better, she says now she is eating and drinking okay. Her blood glucose continues to be difficult to manage BRIAN SAUCEDA, DO [address] [place], [address], [place] [facility] 03/24/2024 17:41:25 OBGyn Episode No OBEpisode recorded.
--- OUTSIDE RECORDS SUMMARY | 2024-04-04 08:50 | XMS_ITS | Encounter Summary ---
[facility] Address [address] [place] [address] Care Team Providers Care Electronic Test Technician Name Role Phone Unavailable Primary Care Provider Unavailabl e Encounter Details Date Type Department Care Team (Late st Contact Info) Description 03/02/2014 10:43 AM EST - 03/02/2014 11:59 PM EST Hospital Encounter [facility] [address] [facility] [address] [place] [address] Riky Hart MD [address] [facility] [address] [place] [address] Social History Tobacco Use Types Packs/Day Years [...] (03/02/2014 10:46 AM EST) Estradiol 85 pg/mL [facility] Comment: DF by IF @ 03/02/2014 15:03 Males: ?0.0-52.0 pg/mL Adult Female: ?Follicular Phase ? 11.0-165.0 pg/mL ?Midcycle ?146.0-526.0 pg/mL ?Luteal Phase ? 33.0-196.0 pg/mL ?Postmenopausal ?ND-37.0 pg/mL Blood specimen (specimen) 03/02/2014 10:46 AM EST Narrative [facility] - 03/02/2014 3:03 PM EST Specimen Type: Blood us Riky Hart MD LAB BLOOD ORDERABLES Final Resul t [facility] [address] [place] [address], documented in this encounter Visit Diagnoses Not on filedocumented in this encounter
--- OUTSIDE RECORDS SUMMARY | 2024-04-04 08:50 | XMS_ITS | Encounter Summary ---
[facility] Address [address] [place] [address] Care Team Providers Care Field Reporter Name Role Phone Unavailable Primary Care Provider Unavailabl e Encounter Details Date Type Department Care Team (Late st Contact Info) Description 03/23/2014 10:37 AM EST - 03/23/2014 11:59 PM EST Hospital Encounter [facility] [address] [facility] [address] [place] [address] Riky Hart MD [address] [facility] [address] [place] [address] Social History Tobacco Use Types Packs/Day Years [...] (03/23/2014 10:44 AM EST) Estradiol 17 pg/mL [facility] Comment: DF by IF @ 03/23/2014 11:32 Males: ?0.0-52.0 pg/mL Adult Female: ?Follicular Phase ? 11.0-165.0 pg/mL ?Midcycle ?146.0-526.0 pg/mL ?Luteal Phase ? 33.0-196.0 pg/mL ?Postmenopausal ?ND-37.0 pg/mL Blood specimen (specimen) 03/23/2014 10:44 AM EST Narrative [facility] - 03/23/2014 11:32 AM EST Specimen Type: Blood us Riky Hart MD LAB BLOOD ORDERABLES Final Resul t [facility] [address] [place] [address], documented in this encounter Visit Diagnoses Not on filedocumented in this encounter
--- OUTSIDE RECORDS SUMMARY | 2024-04-04 08:50 | XMS_ITS | Encounter Summary ---
[facility] [address] [place] [address] Care Team Providers Care Blow Mold Technician Name Role Phone Unavailable Primary Care Provider Unavailabl e Encounter Details Date Type Department Care Team (Late st Contact Info) Description 03/30/2014 10:28 AM EST - 03/30/2014 11:59 PM EST Hospital Encounter [facility] [address] [facility] [address] [place] [address] Riky Hart MD [address] [facility] [address] [place] [address] Social History Tobacco Use Types Packs/Day Years [...] AM EST) Estradiol 102 pg/mL [facility] Comment: DF by IF @ 03/30/2014 11:33 Males: ?0.0-52.0 pg/mL Adult Female: ?Follicular Phase ? 11.0-165.0 pg/mL ?Midcycle ?146.0-526.0 pg/mL ?Luteal Phase ? 33.0-196.0 pg/mL ?Postmenopausal ?ND-37.0 pg/mL Blood specimen (specimen) 03/30/2014 10:34 AM EST Narrative [facility] - 03/30/2014 11:33 AM EST Specimen Type: Blood us Riky Hart MD LAB BLOOD ORDERABLES Final Resul t [facility] [address] [place] [address], documented in this encounter Visit Diagnoses Not on filedocumented in this encounter
--- OUTSIDE RECORDS SUMMARY | 2024-04-04 08:50 | XMS_ITS | Data Portability ---
Author Organization [facility] Elena c, [place] [facility] Address [address] [place] [address] Care Team Providers Care Power Distributor Name Role Phone JESS MAHMOOD Primary Care Provider [phone] Assessment No assessment recorded. Plan of Treatment Reminders Order Date Submit Date Provider Last Modified By Organization Details Last Modified Time Details Appointments RECHECK 2023 01:45P M ERIC PRECIADO EDUCATION PROGRAM SPECIALIST Not available Not available Not available DERMATOL OGY VISIT 2024 01:00P M OLIVER SCHMIDT MD Not available Not available Not available Lab glucose, fingerst ick, blood 2023 024 [email or web address] 8 [facility] , [address] [place] [address], [address], 06/27/2023 13:38:37 hemoglob in A1C, fingerst ick 2023 024 [email or web address] 8 [facility] , [address] [place] [address], [address], 06/27/2023 13:38:36 glucose, fingerst ick, blood 2023 024 [email or web address] 8 [facility] , [address] [place] [address], [address], 01/09/2024 15:29:36 hemoglob in A1C, fingerst ick 2023 024 [email or web address] 8 [facility] , [address] [place] [address], [address], 01/09/2024 15:29:38 CBC w/ auto diff 2023 024 [facility], [address] [place] [address], [address], 02/11/2024 20:50:02 CMP, serum or plasma 2023 024 [facility], [address] [place] [address], [address], 02/11/2024 19:51:15 urinalys is, complete [address] [facility], [address] [place] [address], [address], 02/11/2024 19:53:32 CBC w/ auto diff 2023 024 [facility], [address] [place] [address], [address], 04/04/2024 04:29:10 CMP, serum or plasma [address] [facility], [address] [place] [address], [address], 04/04/2024 04:29:12 ESR (erythro cyte sediment ation rate), blood 2023 024 [facility], [address] [place] [address], [address], 04/04/2024 04:29:13 ldh, serum or plasma [address] [facility], [address] [place] [address], [address], 04/04/2024 04:29:15 Referral hematolo gist/onc ologist referral 2023 024 ENRICO Peter MD, [address] [place] [address] Rd, [facility], [place], [address], 03/24/2024 14:24:31 Procedures None recorded . Surgeries None recorded . Imaging None recorded . Medication Orders fenofibr ate 160 mg tablet 2023 024 [email or web address] 8 [facility], [address], [address], 06/27/2023 13:38:35 Gvoke HypoPen 2-Pack 1 mg/0.2 mL subcutan eous auto-inj nicolás 2023 024 [email or web address] 8 [facility], [address], [address], 06/27/2023 13:38:35 Humalog KwikPen (U-100) Insulin 100 unit/mL subcutan eous [address] [facility] [address] [facility], [address], [address], 06/27/2023 13:38:34 Mounjaro 7.5 mg/0.5 mL subcutan eous pen injector 2023 024 [facility], [address], [address], 01/09/2024 15:09:51 Mounjaro 10 mg/0.5 mL subcutan eous pen injector 2023 024 [facility], [address], [address], 01/09/2024 15:29:44 Toujeo Max U-300 SoloStar 300 unit/mL (3 mL) subcutan eous insulin pen 2023 024 [facility], [address], [address], 01/09/2024 15:29:46 ceftriax one 500 mg solution for injectio n 2023 [email or web address] Not available 03/24/2024 13:57:18 Augmenti n 875 mg-125 mg tablet 2023 [facility], [address] [place], [address], 03/24/2024 13:57:19 prometha zine 12.5 mg tablet 2023 [facility], [address] [place], [address], 03/07/2024 11:24:34 Patient TargetsNo targets recorded. Patient InstructionsNo instructions recorded. Reason for Referral Referring Physician: Brian Hoyt, Internal Medicine, Encounter Date: 03/07/2024 Results Created Date Observation Date Name Description Value Unit Range Abnormal Flag Note LastModifiedBy Organization Detail LastModifiedTime 06/27/19 24 06/27/2023 hemog lobin A1C, finge rstic k hemoglobin A1C % 7.1 % 4.0 - 5.6 Not Available [facility] [address], [address], 06/26/2023 12:48:48 06/27/19 24 06/27/2023 gluco se, finge rstic k, blood glucose, fingerstick 77 mg/dL 70 - 100 Not Available [facility] [address], [address], 06/26/2023 12:48:48 01/09/20 24 01/09/2024 hemog lobin A1C, finge rstic k hemoglobin A1C % 10.8 % 4.0 - 5.6 Not Available [facility] [address], [address], 01/08/2024 08:24:06 01/09/20 24 01/09/2024 gluco se, finge rstic k, blood glucose, fingerstick 303 mg/dL 70 - 100 Not Available [facility] [place] [address] [place] [address], [address], 01/08/2024 08:24:06 02/11/20 24 02/11/2024 COMP. METAB OLIC PANEL glucose 230 mg/dL 74-100 high Not Available [facility] [address] [place] [address], [address], 02/11/2024 19:51:15 02/11/20 24 02/11/2024 COMP. METAB OLIC PANEL blood urea nitrogen 12 mg/dL 6-20 normal Not Available [facility] [address] [place] [address], [address], 02/11/2024 19:51:15 02/11/20 24 02/11/2024 COMP. METAB OLIC PANEL creatinine 0.60 mg/dL 0.50-0 .95 normal Not Available [facility] [address] [place] [address], [address], 02/11/2024 19:51:15 02/11/20 24 02/11/2024 COMP. METAB OLIC PANEL BUN/creatini ne ratio 20 (calc ) 10-20 normal Not Available [facility] [address] [place] [address], [address], 02/11/2024 19:51:15 02/11/20 24 02/11/2024 COMP. METAB OLIC PANEL sodium 136 mmol/ L 136-14 5 normal Not Available [facility] [address] [place] [address], [address], 02/11/2024 19:51:15 02/11/20 24 02/11/2024 COMP. METAB OLIC PANEL potassium 4.0 mmol/ L 3.4-5. 0 normal Not Available [facility] [address] [place] [address], [address], 02/11/2024 19:51:15 02/11/20 24 02/11/2024 COMP. METAB OLIC PANEL chloride 101 mmol/ L 98-107 normal Not Available [facility] [address] [place] [address], [address], 02/11/2024 19:51:15 02/11/20 24 02/11/2024 COMP. METAB OLIC PANEL carbon dioxide 19 mmol/ L 22-31 low Not Available [facility] [address] [place] [address], [address], 02/11/2024 19:51:15 02/11/2002/11/2024 COMP. METAB OLIC PANEL anion gap 16 (calc ) 7-25 normal Not Available [facility] [address] [place] [address], [address], 02/11/2024 19:51:15 02/11/20 24 02/11/2024 COMP. METAB OLIC PANEL calcium 9.7 mg/dL 8.6-10 .2 normal Not Available [facility] [address] [place] [address], [address], 02/11/2024 19:51:15 02/11/2002/11/2024 COMP. METAB OLIC PANEL total protein 7.7 g/dL 6.4-8. 3 normal Not Available [facility] [address] [place] [address], [address], 02/11/2024 19:51:15 02/11/2002/11/2024 COMP. METAB OLIC PANEL albumin 4.0 g/dL 3.5-5. 2 normal Not Available [facility] [address] [place] [address], [address], 02/11/2024 19:51:15 02/11/2002/11/2024 COMP. METAB OLIC PANEL globulin 3.7 1.5-4. 5 normal Not Available [facility] [address] [place] [address], [address], 02/11/2024 19:51:15 02/11/20 24 02/11/2024 COMP. METAB OLIC PANEL albumin/glob ulin ratio 1.1 (calc ) 1.1-2. 5 normal Not Available [facility] [address] [place], [address], 02/11/2024 19:51:15 02/11/20 24 02/11/2024 COMP. METAB OLIC PANEL bilirubin, total 0.3 mg/dL 0.1-1. 2 normal Not Available [facility] [address] [place], [address], 02/11/2024 19:51:15 02/11/2002/11/2024 COMP. METAB OLIC PANEL alkaline phosphatase 105 U/L 30-121 normal Not Available [facility] [address] [place] [address], [address], 02/11/2024 19:51:15 02/11/20 24 02/11/2024 COMP. METAB OLIC PANEL AST 11 U/L 0-32 normal Not Available [facility] [address] [place] [address], [address], 02/11/2024 19:51:15 02/11/20 24 02/11/2024 COMP. METAB OLIC PANEL ALT 10 U/L 0-33 normal Not Available [facility] [address] [place] [address], [address], 02/11/2024 19:51:15 02/11/20 24 02/11/2024 COMP. METAB OLIC PANEL GFR 113 >= 60 normal NOT E New calcu latio n for GFR (CKD- EPI 2020) is formu lated witho ut race adjus tment facto rs at the recom menda tion of the [employer] . This calcu latio n has not been valid ated in pregn ant women . For pedia tric patie nts refer to https ://fredi cisneros.manuel esqueda/pr ofess ional s/KDO QI/gf r_cal culat orPed Not Available [facility] [address] [place], [address], 02/11/2024 19:51:15 02/11/2002/11/2024 URINA LYSIS color Rhea normal Not Available [facility] [address] [place], [address], 02/11/2024 19:53:32 02/11/2002/11/2024 URINA LYSIS appearance Light turbid normal Not Available [facility] [address] [place], [address], 02/11/2024 19:53:32 02/11/2002/11/2024 URINA LYSIS glucose 250 mg/dL normal abnormal Not Available [facility] [address] [place], [address], 02/11/2024 19:53:32 02/11/2002/11/2024 URINA LYSIS bilirubin Negati ve mg/dL negati ve normal Not Available [facility] [address] [place], [address], 02/11/2024 19:53:32 02/11/2002/11/2024 URINA LYSIS ketone 5 mg/dL negati ve abnormal Not Available [facility] [address] [place], [address], 02/11/2024 19:53:32 02/11/2002/11/2024 URINA LYSIS specific gravity 1.040 1.003- 1.035 high Not Available [facility] [address] [place], [address], 02/11/2024 19:53:32 02/11/2002/11/2024 URINA LYSIS blood 25 /uL negati ve abnormal Not Available [facility] [address] [place], [address], 02/11/2024 19:53:32 02/11/2002/11/2024 URINA LYSIS pH 5 5.0 - 8.0 normal Not Available [facility] [address] [place] [address], [address], 02/11/2024 19:53:32 02/11/2002/11/2024 URINA LYSIS protein 15 mg/dL negati ve abnormal Not Available [facility] [address] [place] [address], [address], 02/11/2024 19:53:32 02/11/2002/11/2024 URINA LYSIS urobilinogen Normal mg/dL normal normal Not Available [facility] [address] [place] [address], [address], 02/11/2024 19:53:32 02/11/2002/11/2024 URINA LYSIS nitrite Negati ve negati ve normal Not Available [facility] [address] [place] [address], [address], 02/11/2024 19:53:32 02/11/2002/11/2024 URINA LYSIS leukocyte esterase 100 /uL negati ve abnormal Not Available [facility] [address] [place] [address], [address], 02/11/2024 19:53:32 02/11/2002/11/2024 URINA LYSIS mucus, urine 2+ /lpf not establ ished normal Not Available [facility] [address] [place] [address], [address], 02/11/2024 19:53:32 02/11/2002/11/2024 URINA LYSIS WBC, urine > 30 0-5/hp f abnormal Not Available [facility] [address] [place] [address], [address], 02/11/2024 19:53:32 02/11/2002/11/2024 URINA LYSIS RBC, urine 3-10 0-2/hp f abnormal Not Available [facility] [address] [place] [address], [address], 02/11/2024 19:53:32 02/11/20 24 02/11/2024 URINA LYSIS squamous epi. cells > 10 0-5/hp f abnormal Not Available [facility] [address] [place] [address], [address], 02/11/2024 19:53:32 02/11/2002/11/2024 URINA LYSIS bacteria 2+ /hpf none seen abnormal Not Available [facility] [address] [place] [address], [address], 02/11/2024 19:53:32 02/11/2002/11/2024 URINA LYSIS yeast, urine Many /hpf none seen abnormal Not Available [facility] [address] [place] [address], [address], 02/11/2024 19:53:32 02/11/2002/11/2024 COMPL ETE BLOOD COUNT white blood cells 14.5 10*3/ uL 3.8-10 .8 high Not Available [facility] [address] [place] [address], [address], 02/11/2024 20:50:01 02/11/2002/11/2024 COMPL ETE BLOOD COUNT red blood cells 4.85 10*6/ uL 3.80-5 .20 normal Not Available [facility] [address] [place] [address], [address], 02/11/2024 20:50:01 02/11/2002/11/2024 COMPL ETE BLOOD COUNT hemoglobin 15.1 g/dL 12.0-1 6.0 normal Not Available [facility] [address] [place] [address], [address], 02/11/2024 20:50:01 02/11/20 24 02/11/2024 COMPL ETE BLOOD COUNT hematocrit 44.7 % 35.0-4 7.0 normal Not Available [facility] [address] [place] [address], [address], 02/11/2024 20:50:01 02/11/20 24 02/11/2024 COMPL ETE BLOOD COUNT MCV 92 fL 80-100 normal Not Available [facility] [address] [place] [address], [address], 02/11/2024 20:50:01 02/11/2002/11/2024 COMPL ETE BLOOD COUNT MCH 31 pg 26-35 normal Not Available [facility] [address] [place] [address], [address], 02/11/2024 20:50:01 02/11/2002/11/2024 COMPL ETE BLOOD COUNT MCHC 34 g/dL 32-36 normal Not Available [facility] [address] [place] [address], [address], 02/11/2024 20:50:01 02/11/20 24 02/11/2024 COMPL ETE BLOOD COUNT RDW 14.7 % 11.0-1 5.0 normal Not Available [facility] [address] [place] [address], [address], 02/11/2024 20:50:01 02/11/2002/11/2024 COMPL ETE BLOOD COUNT MPV 8.9 fL 6.2-10 .5 normal Not Available [facility] [address] [place] [address], [address], 02/11/2024 20:50:01 02/11/2002/11/2024 COMPL ETE BLOOD COUNT platelet count 518 10*3/ uL 150-40 0 high Not Available [facility] [address] [place] [address], [address], 02/11/2024 20:50:01 02/11/20 24 02/11/2024 COMPL ETE BLOOD COUNT neutrophil,a bsolute 7.2 10*3/ uL 1.6-8. 4 normal Not Available [facility] [address] [place] [address], [address], 02/11/2024 20:50:01 02/11/20 24 02/11/2024 COMPL ETE BLOOD COUNT lymphocyte,a bsolute 5.4 10*3/ uL 0.4-5. 1 high Not Available [facility] [address] [place] [address], [address], 02/11/2024 20:50:01 02/11/20 24 02/11/2024 COMPL ETE BLOOD COUNT monocyte,abs olute 1.2 10*3/ uL 0.0-1. 2 normal Not Available [facility] [address] [place] [address], [address], 02/11/2024 20:50:01 02/11/20 24 02/11/2024 COMPL ETE BLOOD COUNT eosinophil,a bsolute 0.2 10*3/ uL 0.0-0. 8 normal Not Available [facility] [address] [place] [address], [address], 02/11/2024 20:50:01 02/11/20 24 02/11/2024 COMPL ETE BLOOD COUNT basophil,abs olute 0.4 10*3/ uL 0.0-0. 3 high Not Available [facility] [address] [place] [address], [address], 02/11/2024 20:50:01 02/11/20 24 02/11/2024 COMPL ETE BLOOD COUNT % neutrophils 49.9 % 42.0-7 8.0 normal Not Available [facility] [address] [place] [address], [address], 02/11/2024 20:50:01 02/11/20 24 02/11/2024 COMPL ETE BLOOD COUNT % lymphocytes 37.3 % 11.0-4 7.0 normal Not Available [facility] [address] [place] [address] [place], [address], 02/11/2024 20:50:01 02/11/20 24 02/11/2024 COMPL ETE BLOOD COUNT % monocytes 8.5 % 0.0-11 .0 normal Not Available [facility] [address] [place] [address], [address], 02/11/2024 20:50:01 02/11/20 24 02/11/2024 COMPL ETE BLOOD COUNT % eosinophils 1.4 % 0.0-7. 0 normal Not Available [facility] [address] [place] [address], [address], 02/11/2024 20:50:01 02/11/20 24 02/11/2024 COMPL ETE BLOOD COUNT % basophils 2.9 % 0.0-3. 0 normal Not Available [facility] [address] [place] [address], [address], 02/11/2024 20:50:01 02/11/20 24 02/11/2024 COMPL ETE BLOOD COUNT nucleated red cells 0.1 % 0.0-0. 9 normal Not Available [facility] [address] [place] [address], [address], 02/11/2024 20:50:01 02/11/20 24 02/11/2024 COMPL ETE BLOOD COUNT nucleated RBCs, absolute 0.02 10*3/ uL not estab. normal Not Available [facility] [address] [place] [address], [address], 02/11/2024 20:50:01 02/22/20 24 02/19/2024 XR, chest [...] Recorded Time High glucose level in blood 315914153 Active 2020 Not Available [facility] 3 06:18:45 Depressive disorder 21187443 Active 2023 BRIAN DE, DO [address] [place], [address] , [facility] 4 11:08:24 Anxiety 56757460 Active 2023 BRIAN DE, DO [address] [place], [address] , [facility] 4 11:08:34 Cervical lymphadenopat hy 220853745 Active 2023 [place] [address] [place] [address], [address] , [facility] 4 14:17:23 Chronic tonsillitis 41676450 Active 2023 BRIAN DE, DO [address] [place], [address] , [facility] 4 14:17:24 Problem Notes None recorded. Procedures Surgical History Date Name Laterality Status Provider Name and Address Organization Details Recorded Time procedure on spleen completed [facility] 02/17/2021 09:40:19 procedure on gallbladder completed [facility] 02/17/2021 09:40:30 endoscopic procedure on spleen completed [facility] 02/17/2021 09:40:59 procedure on appendix completed [facility] 02/17/2021 09:41:08 Imaging Results Imaging Date Name Status LastModified by Organiz ation Details LastModified Time 02/19/2024 XR, chest, 2 view completed [email or web address] Information not available 02/22/2024 11:35:26 03/07/2024 CT, neck, soft tissue, w/ contrast completed [email or web address] Information not available 03/24/2024 15:36:15 Procedure Notes None recorded. Medical Equipment None [...] with needle 1 mL 31 gauge x 5/16 active Not Available Not Available Not Available [...] Not Available No t Available Dexcom G7 [employer]ist USE DIRECTED active Not Available Not Available No t Available Dexcom G7 Sensor device CHANGE SENSOR EVERY 10 DAYS active Not Available Not Available No t Available Vitals Date Recorded Body height Body mass index (BMI) Body weight Heart rate Systolic blood pressure Diastolic blood pressure Provider Name and Address Organization Details Last Updated DateTime 4 167.64 cm 33.7 kg/m2 46939.8 1 g 74 /min 126 mm[Hg] 72 mm[Hg] [facility] 4 11:48:40 Date Recorded Body height Body mass index (BMI) Body weight Heart rate Systolic blood pressure Diastolic blood pressure Provider Name and Address Organization Details Last Updated DateTime 4 167.64 cm 29.9 kg/m2 41782.5 9 g 125 /min 128 mm[Hg] 76 mm[Hg] Fanta Mace [facility] 4 14:59:13 Date Recorded Body height Body mass index (BMI) Body weight Heart rate Oxygen saturation Oxygen saturation in Arterial blood by Pulse oximetry Systolic blood pressure Diastolic blood pressure Provider Name and Address Organization Details Last Updated DateTime 4 167.64 cm 28.8 kg/m2 57151.2 4 g 114 /min 97 % 97 % 122 mm[Hg] 72 mm[Hg] [facility] 4 11:02:16 Date Recorded Body height Body mass index (BMI) Body weight Heart rate Oxygen saturation Oxygen saturation in Arterial blood by Pulse oximetry Body temperature Systolic blood pressure Diastolic blood pressure Provider Name and Address Organization Details Last Updated DateTime 4 167.64 cm 28.4 kg/m2 65610.6 6 g 103 /min 96 % 96 % 98.7 [degF] 116 mm[Hg] 70 mm[Hg] [facility] 4 11:04:27 Date Recorded Body height Body mass index (BMI) Body weight Heart rate Oxygen saturation Oxygen saturation in Arterial blood by Pulse oximetry Systolic blood pressure Diastolic blood pressure Provider Name and Address Organization Details Last Updated DateTime 4 167.64 cm 28.1 kg/m2 87894.1 7 g 97 /min 95 % 95 % 112 mm[Hg] 72 mm[Hg] [facility] 4 13:59:22 Social History Question Answer Notes LastModified by Organizat ion Details LastModified Time Tobacco Smoking Status [email or web address]/17/[facility] 09:40:01 What Is Your Level Of Alcohol Consumption? None [email or web address] Information not available 02/17/2021 What Is Your Level Of Caffeine Consumption? Moderate [email or web address] Information not available 02/17/2021 What Was The Date Of Your Most Recent Tobacco Screening? 09/22/2021 Information not available 09/22/2021 Do You Use Any Illicit Or Recreational Drugs? No [email or web address] Information not available 02/17/2021 Has Tobacco Cessation Counseling Been Provided? No [email or web address] Information not available 02/17/2021 Do You Or [...] virus, quadrivalent, preservative 03/09/2022 completed [facility] 01/09/2024 14:56:25 Influenza, recombinant, quadrivalent, PF 02/15/2020 completed [facility] Rod[facility] 01/09/2024 14:56:25 Influenza, live, trivalent, intranasal 01/27/2013 completed Honey Rodri [facility] 01/09/2024 14:56:25 Tdap 08/28/2017 completed Honey Rodri [facility] 01/09/2024 14:56:25 Pneumococcal conjugate PCV 13 09/04/2017 completed Honey Rodri [facility] 01/09/2024 14:56:25 meningococcal MCV4P 08/22/2017 completed Honey Ri ck [facility] 01/09/2024 14:56:25 Influenza, split virus, quadrivalent, PF 12/31/2013 completed Honey Rodri [facility] 01/09/2024 14:56:25 Influenza, split virus, quadrivalent, PF 02/02/2019 completed Honey Rodri [facility] 01/09/2024 14:56:25 COVID-19, mRNA, LNP-S, PF, 100 mcg/0.5mL dose or 50 mcg/0.25mL dose 05/14/2020 completed Honey Rodri [facility] 01/09/2024 14:56:25 COVID-19, mRNA, LNP-S, PF, 100 mcg/0.5mL dose or 50 mcg/0.25mL dose 07/09/2020 completed [facility] 01/09/2024 14:56:25 Past Encounters Encounter ID Performer Location Encounter Start Date Encounter Closed Date Diagnosis/Indication Diagnosis SNOMED-CT Code Diagnosis ICD10 Code [id number] [place] [address] [place] [id number] 02/17/2021 09:28:09 02/18/2021 15:33:16 Uncontrolled type 2 diabetes mellitus 766095730 E11.65 Hyperlipidemia 35992048 E78.5 Peripheral neuropathy due to type 2 diabetes mellitus 2622200365 107 E11.42 [id number] BOWEN PINZON DO [facility] [place] [address] [place] [address] 1 03/10/2021 10:09:31 03/16/2021 16:00:54 Uncontrolled type 2 diabetes mellitus [id number] E11.65 [id number] BOWEN PINZON DO [facility] [address] [place] [address] 1 04/28/2021 08:49:23 04/28/2021 12:28:06 Uncontrolled type 2 diabetes mellitus 100904234 E11.65 Mixed hyperlipidemia 267 497989 E78.2 Peripheral neuropathy due to type 2 diabetes mellitus 0435385130 107 E11.42 [id number] BOWEN PINZON DO [facility] [address] [place] [address] 08/25/2021 09:55:13 08/25/2021 10:51:50 Uncontrolled type 2 diabetes mellitus 748194245 E11.65 Hypertriglyceridemia 302 511719 E78.2 Diabetic p eripheral neuropathy 769800792 E11.40 [id number] BOWEN PINZON DO [facility] [address] [place] [id number] 09/22/2021 09:28:49 09/22/2021 10:08:36 Uncontrolled type 2 diabetes mellitus 483416895 E11.65 [id number] BOWEN PINZON DO [facility] [address] [place] [id number] 03/20/2022 10:23:58 03/20/2022 11:14:35 Uncontrolled type 2 diabetes mellitus 958929127 E11.65 Mixed hyperlipidemia 267 978907 E78.2 [id number] ERIC PRECIADO APRN [facility] [address] [place] [id number] 08/02/2022 09:09:42 08/02/2022 09:57:46 Uncontrolled type 2 diabetes mellitus 254619090 E11.65 Mixed hyperlipidemia 267 603304 E78.2 Peripheral neuropathy due to type 2 diabetes mellitus 5471622703 107 E11.42 [id number] ERIC PRECIADO APRN ENDOCRINO LOGY [address] [place] [address] 06/27/2023 11:35:01 06/27/2023 12:45:31 Uncontrolled type 2 diabetes mellitus 879262270 E11.65 Mixed hyperlipidemia 267 064577 E78.2 Peripheral neuropathy due to type 2 diabetes mellitus 7773915922 107 E11.42 Hypoglycem ia due to type 2 diabetes mellitus 8834710732 50111 E11.649 Hypertriglyceridemia 302 396954 E78.1 [id number] ERIC PRECIADO APRN ENDOCRINO LOGY [address] [place] [address] 01/09/2024 14:50:09 01/09/2024 15:30:56 Uncontrolled type 2 diabetes mellitus 452473508 E11.65 Mixed hyperlipidemia 267 840235 E78.2 Peripheral neuropathy due to type 2 diabetes mellitus 4541961572 107 E11.42 Hypoglycem ia due to type 2 diabetes mellitus 5927174806 90065 E11.649 Hypertriglyceridemia 302 175153 E78.1 [id number] BRIAN DE, DO PRIMARY CARE [address] [place] [address] 02/11/2024 10:29:20 02/11/2024 11:25:08 History of splenectomy 934694567 Z90.81 Uncontroll ed type 2 diabetes mellitus 409526385 E11.65 Anxiety 67119131 F41.9 Depressive disorder 3548 9007 F32.A Chronic tonsillitis 9097 9004 J35.01 Polyneuropathy 97565096 G62.9 Illness 99284675 R69 [id number] BRIAN DE, DO PRIMARY CARE [address] [place] [address] 03/07/2024 10:53:49 03/07/2024 12:09:21 Chronic tonsillitis 33794817 J35.01 Cervical lymphadenopathy 979928201 R59.0 Uncontroll ed type 2 diabetes mellitus 107622181 E11.65 Abnormal weight loss 267 335124 R63.4 [id number] BRIAN MORALES LL, DO PRIMARY CARE [facility] [address] [place] [address] 03/24/2024 13:52:01 03/24/2024 14:29:03 Chronic tonsillitis 56278461 J35.01 Cervical lymphadenopathy 560794906 R59.0 Uncontroll ed type 2 diabetes mellitus 000041959 E11.65 Recurrent major depression 10859217 F33.9 Health Concerns Section Related Observation LastModified by Organization Detai ls LastModified Time None Recorded Concern Status LastModified by Organization Details LastModified Time None Recorded Advance Directives Directive None Recorded Payers Encounter Date Sequence Insurance Name Policy Number Policy Mccarty Covered Member ID Mccarty Member ID Guarantor Name 06/27/2023 1 [place] [id number] Lamine L Garcia [id number] Olya R Garcia 01/09/2024 1 [place] [id number] Lamine L Garcia [id number] Olya R Garcia 02/11/2024 1 [place] [id number] Lamine L Garcia [id number] Olya R Garcia 03/07/2024 1 [place] [id number] Lamine L Garcia [id number] Olya R Garcia 03/24/2024 1 [place] [id number] Lamine L Garcia [id number] 03 Olya R Garcia Notes Date Note Type Note Provider Name and Address Organization Details Recorded Time 06/27/2023 text/html This is a 42 yea [...] {{Yes* No}}Hyperlipid emia: {{Yes* No}} ERIC PRECIADO, EDUCATION PROGRAM SPECIALIST [address] [place], [address], [facility] 06/27/2023 13:41:49 01/09/2024 text/html This [...] (only taking sliding scale currently d/t limited diet)[id number] 0=[id number] =9uMounjaro 10mg qwk No recent episodes of [...] on: {{Yes* No}}Hyperlipid emia: {{Yes* No}} ERIC ILANA, EDUCATION PROGRAM SPECIALIST [address] [place], [address], [facility] 01/09/2024 16:02:55 02/11/2024 text/html Patient is 43-year-old female here for new patient evaluation. She has poorly controlled diabetes, is on Mounjaro, basal bolus insulin, managed by gas plant specialist, last A1c was pretty high. She has [...] tonsils taken out or not Works at [employer] no smoke.no alcohol BRIAN HOYT, DO [address] [place], [address], [facility] 02/11/2024 12:49:37 03/07/2024 text/html Patient is 43-year-old female here for acute visit, she has poorly controlled diabetes, has had recurrent infections, pneumonia, for which recently had hospitalization, she has this weird cervical lymphadenopathy, has been evaluated by ENT at [facility], follow-up CT looked improved, ENT doctor [...] She feels dehydrated BRIAN HOYT, DO [address] [place], [address], [facility] 03/07/2024 12:56:05 03/24/2024 text/html Patient is 43-year-old female here [...] continues to be difficult to manage BRIAN HOYT, [address] [place], [address], [facility] 03/24/2024 17:41:25 OBGyn Episode No OBEpisode recorded.
--- OUTSIDE RECORDS SUMMARY | 2024-04-04 08:50 | XMS_ITS | Clinical Summary ---
Author Organization [facility] Address [address] [place] [address] Care Team Providers Care Vice President Of Marketing Name Role Phone Clyde Almodovar MD Primary [...] SCREENING 1979 MAMMOGRAM 11/23/2021 11/24/2019 INFLUENZA VACCINE 10/29/2023 01/27/2013 COVID-19 Vaccine (1 - 2023-2 5 [...] Most Recently Relevant to Health Maintenance Insurance [facility] PPO Care Teams Vice President Of Marketing Relationship Specialty Start Date End Date Clyde Almodovar MD [address] [place] [address] [place] [address] PCP - General Family Medicine 11/24/19
--- OUTSIDE RECORDS SUMMARY | 2024-04-04 08:50 | XMS_ITS | Encounter Summary ---
Author Organization [facility] Address [address] [place] [address] Care Team Providers Care Straightener Hand Name Role Phone Unavailable Primary Care Provider Unavailabl e Encounter Details Date Type Department Care Team (Late st Contact Info) Description 03/04/2014 11:10 AM EST - 03/04/2014 11:59 PM EST Hospital Encounter [facility] [address] [facility] [address] [place] [address] Riky Hart MD [address] [facility] [address] [place] [address] Social History Tobacco Use Types Packs/Day Years [...] (03/04/2014 11:13 AM EST) Estradiol 179 pg/mL [facility] Comment: DF by IF @ 03/04/2014 21:43 Males: ?0.0-52.0 pg/mL Adult Female: ?Follicular Phase ? 11.0-165.0 pg/mL ?Midcycle ?146.0-526.0 pg/mL ?Luteal Phase ? 33.0-196.0 pg/mL ?Postmenopausal ?ND-37.0 pg/mL Blood specimen (specimen) 03/04/2014 11:13 AM EST Narrative [facility] - 03/04/2014 9:43 PM EST Specimen Type: Blood us Riky Hart MD LAB BLOOD ORDERABLES Final Resul t [facility] [address] [place] [address], documented in this encounter Visit Diagnoses Not on filedocumented in this encounter
[2024-04-04 09:25] VITALS: BMI 27.7
[2024-04-04 09:37] LABS: Basophils # 0.2 K/mm3 (0-0.2); Basophils % 1.7 % (0.1-2.0); Eosinophils # 0.2 K/mm3 (0.0-0.4); Eosinophils % 2.4 % (0.1-12.0); Hematocrit 42.9 % (37.0-47.0); Hemoglobin 14.3 g/dL (12.2-16.2); Lymphocytes # 3.9 K/mm3 (0.7-4.5); Lymphocytes % 38.9 % (10-50); Mean Corpuscular HGB Conc 33.3 g/dL (31.8-35.4); Mean Corpuscular Hemoglobin 31.1 pg (27.0-31.2); Mean Corpuscular Volume 93.2 fl (81-99); Mean Platelet Volume 8.1 fl (7.4-10.4); Monocytes % 9.9 % (1.7-9.3); Neutrophils # 4.8 K/mm3 (1.8-7.8); Neutrophils % 47.1 % (37.0-80.0); Platelet Count 587 K/mm3 (142-424); Red Blood Count 4.61 M/mm3 (4.20-5.40); Red Cell Distribution Width 14.4 % (11.5-17.5); White Blood Count 10.1 K/mm3 (4.8-10.8)
[2024-04-04 09:44] LABS: Chloride 109 mmol/L (98-107)
[2024-04-04 09:45] LABS: Potassium 3.6 mmoL/L (3.5-5.1); Sodium 140 mmol/L (136-145)
[2024-04-04 09:48] LABS: Anion Gap 7.6 mEq/L (5-15); Blood Urea Nitrogen 14 mg/dl (7-17); Calcium 9.3 mg/dl (8.4-10.2); Carbon Dioxide 27 mmol/L (22.0-30.0); Creatinine Clearance Estimated 177 mL/min (50-200); Estimated Glomerular Filt Rate 134 ml/min (>60); GFR (African American) 162 ML/MIN (>60); Glucose 130 mg/dl (74-100)
[2024-04-04 09:50] LABS: HCG Qualitative, Serum Negative (Negative)
== END 2024-04-04 23:59 | disposition home or self-care (01) ==
LOC: PREOP 08:48
PROVIDERS: Nurse Anesthetist, Certified Registered; PCP Internal Medicine; Visit Provider Otolaryngology
DX: Z01.812 Encounter for preprocedural laboratory examination (principal)
CPT/HCPCS: 80048; 84703; 85025

== ENCOUNTER 2024-04-07 07:10 | Day surgery (SDC) | payer BC, SELFPAY ==
[2024-04-04 09:11] VITALS: BMI 27.7
[2024-04-07] VITALS (9 sets, daily range): BP systolic 127–144; BP diastolic 73–92; PULSE 82–116; RESP 16–22; TEMP 36.2–36.7; O2SAT 97–100
--- OUTSIDE RECORDS SUMMARY | 2024-04-07 07:12 | XMS_ITS | Clinical Summary ---
Author Organization [facility] Address [address] [place] [address] Care Team Providers Care Machine Repairer Name Role Phone Clyde Almodovar MD Primary [...] Most Recently Relevant to Health Maintenance Insurance [place] PPO Care Teams Machine Repairer Relationship Specialty Start Date End Date Clyde Almodovar MD [address] [place] [address] [place] [address] PCP - General Family Medicine 11/24/19
--- OUTSIDE RECORDS SUMMARY | 2024-04-07 07:12 | XMS_ITS | Continuity of Care Document ---
Author Organization [facility] Address [address] [place] [address] Care Team Providers Care Selling Manager Name Role Phone BRIAN SAUCEDA Primary Care Provider Assessment No assessment recorded. Plan of Treatment Reminders Order Date Submit Date Provider Last Modified By Organization Details Last Modified Time Details Appointments FOLLOW UP 15 2024 02:15P Gabriella Peter MD Not available Not available Not available Lab lui-b arr virus (ebv) IgG + IgM panel, serum [email or web address] [place] [address] Lab, [address] [place], [address], 03/31/2024 15:57:51 CBC w/ auto diff 2023 024 [facility], [address] [facility], [place], [address], 03/24/2024 14:31:13 CMP, serum or plasma 2023 024 [facility], [address] [facility], [place], [address], 03/24/2024 15:12:59 bcr-abl transloca tion, PCR, blood/bon e marrow [email or web address] Lab, [address] [place], [address], 03/31/2024 09:14:22 chronic leukemia panel, flow cytometry , unspecifi ed specimen [address] [facility], [address] [place], [address], 03/31/2024 09:14:22 jak2 (V617F) mutation, blood/tis millie [address] [facility], [address] [place], [address], 03/31/2024 15:57:51 TSH, serum or plasma [address] [facility], [address] [place], [address], 03/31/2024 09:14:23 ldh, serum or plasma 2023 024 [facility], [address] [place], [address], 03/24/2024 15:14:07 C-reactiv e protein, quantitat blake, serum or plasma [address] [facility], [address] [place], [address], 03/31/2024 09:14:22 ESR (erythroc yte sedimenta tion rate), blood [address] [facility], [address] [place], [address], 03/31/2024 09:14:23 iron + total iron-bind ing capacity (TIBC), serum [address] [facility], [address] [place], [address], 03/31/2024 09:14:23 iron saturatio n, serum [address] [facility], [address], [place], [address], 03/31/2024 09:14:23 Referral None recorded. Procedures None [...] contr ast No observ ation record ed. [address] (Med Record) [address], [place], [address], 03/25/2024 12:35:45 03/24/20 24 12/24/2023 CT, neck, soft tissu e, w/ contr ast No observ ation record ed. [address] (Med Record) [address], [place], [address], 03/24/2024 13:14:12 03/24/20 24 12/24/2023 CT, neck, soft tissu e, w/ contr ast No observ ation record ed. [address] (Med Record) [address], [place], [address], 03/24/2024 15:29:00 03/24/20 24 12/24/2023 CT, neck, soft tissu e, w/ contr ast No observ ation record ed. [address] (Med Record) [address], [place], [address], 03/25/2024 15:41:42 Result Notes None recorded. Problems Name Problem SNOMED Code Status Onset Date Resolution Date Notes Provider Name and Address Organization Details Recorded Time Depressive disorder 87935073 Active TOOTIE Damico [place] [facility] [place] 4 13:08:29 High glucose level in blood 929219353 Active TOOTIE Damico [place] [facility] [place] 4 13:08:29 Anxiety 45356642 Active TOOTIE Damico [place] [facility] [place] 4 13:08:29 Problem Notes None recorded. Procedures Surgical History Date Name Laterality Status Provider Name and Address Organization Details Recorded Time appendectomy completed Mony Moyer [place] [facility] [place] 03/24/2024 13:10:16 cholecystectomy completed Mony Moyer [place] [facility] [place] 03/24/2024 13:10:29 splenectomy completed Mony DONNELLY [facility] [place] 03/24/2024 13:11:09 tonsillectomy completed Mony DONNELLY [facility] & [place] 03/24/2024 13:15:07 Imaging Results None recorded. Procedure [...] Not Available No t Available Dexcom G7 [employer] Designer USE DIRECTED active Not Available Not Available [...] Updated DateTime 4 167.64 cm 28.1 kg/m2 46710.7 9 g 98 % 98 % 93 /min 97.8 [degF] 106 mm[Hg] 68 mm[Hg] Mony Morrison [facility] & [place] 13:15:40 Social History Question Answer Notes LastModified by Organizat ion Details LastModified Time Tobacco Smoking Status Never Smoker Mony Morrison [facility], [facility] [place] 03/24/2024 13:09:48 What Is Your Level Of Alcohol Consumption? 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 No [email or web address] Information not available 03/24/2024 Sex: Female Functional [...] Mony Morrison null, [place] [facility] [place] [facility] [place] 03/24/2024 13:08:33 Influenza, recombinant, quadrivalent, PF 02/15/2020 completed Mony [place] [facility] [place] [facility] [place] 03/24/2024 13:08:33 Influenza, live, trivalent, intranasal 01/27/2013 completed Mony [place] [facility] [place] [facility] [place] 03/24/2024 13:08:33 COVID-19, mRNA, LNP-S, PF, 100 mcg/0.5mL dose or 50 mcg/0.25mL dose 05/14/2020 completed Mony [place] [facility] [place] 03/24/2024 13:08:33 COVID-19, mRNA, LNP-S, PF, 100 mcg/0.5mL dose or 50 mcg/0.25mL dose 07/09/2020 completed Mony Morrison null[place] [facility] [place] [facility] [place] 03/24/2024 13:08:33 Tdap 08/28/2017 completed Mony [place] null[place] [facility] [place] 03/24/2024 13:08:33 Pneumococcal conjugate PCV 13 09/04/2017 completed Mony nieto, [place] [facility] [place] 03/24/2024 13:08:33 meningococcal MCV4P 08/22/2017 completed Mony nieto, [place] [facility] [place] [facility] [place] 03/24/2024 13:08:33 Influenza, split virus, quadrivalent, PF 12/31/2013 completed Mony nieto, [place] - [facility] [place] [facility] [place] 03/24/2024 13:08:33 Influenza, split virus, quadrivalent, PF 02/02/2019 completed Mony nieto, [place] - [facility] [place] [facility] [place] 03/24/2024 13:08:33 Past Encounters Encounter ID Performer Location Encounter Start Date Encounter Closed Date Diagnosis/Indication Diagnosis SNOMED-CT Code Diagnosis ICD10 Code [id number] Magnolia Nagel PA-C [facility] [address] [facility] [address] [place] [address] 03/24/2024 13:00:40 03/24/2024 13:46:29 Leukocytosis 686792641 D72.829 Thrombocytosis 3430097 D 75.839 Cervical lymphadenopathy 759341268 R59.0 Unintentio nal weight loss 862153557 R63.4 History of splenectomy 621792481 Z90.81 Chronic tonsillitis 9097 9004 J35.01 Health Concerns Section Related Observation LastModified by Organization Detai ls LastModified Time None Recorded Concern Status LastModified by Organization Details LastModified Time None Recorded Payers Encounter Date Sequence Insurance Name Policy Number Policy Mccarty Covered Member ID Mccarty Member ID Guarantor Name 03/24/2024 1 [place] [id number] Lamine Garcia [id number] Olya Garcia Notes Date Note Type Note Provider Name and Address Organization Details Recorded Time 03/24/2024 text/html 43 year old fema le for evaluation of cervical lymphadenopathy leukocytosis and thrombocytosis. Patient has had recurrent tonsillitis. Patient was hospitalized with pneumonia in November 2023. She has had cervical lymphadenopathy and was evaluated by ENT at [facility]. ENT recommended tonsillectomy. She is scheduled [...] 92. Normal [facility] and [facility]. Platelet count 075920. Differential with absolute lymphocyte count 5.4. No [...] up with further recommendations. Magnolia Nagel PA-C [address], [place], [address], [place] [facility] [place] 03/24/2024 14:22:20 OBGyn Episode No OBEpisode recorded.
--- OUTSIDE RECORDS SUMMARY | 2024-04-07 07:12 | XMS_ITS | Data Portability ---
Author Organization [facility] [employer] ADMIN Address [address] [place] [id number] Care Team Providers Care Ecommerce Project Manager Name Role Phone BRIAN SAUCEDA Primary Care Provider [phone] Assessment No assessment recorded. Plan of Treatment Reminders Order Date Submit Date Provider Last Modified By Organization Details Last Modified Time Details Appointments FOLLOW UP 15 2024 02:15P Gabriella Peter MD Not available Not available Not available Lab lui-b arr virus (ebv) IgG + IgM panel, serum [address] [facility], [address] [facility], [place], [address], 03/31/2024 15:57:51 CBC w/ auto diff 2023 024 [facility], [address] [facility], [place], [address], 03/24/2024 14:31:13 CMP, serum or plasma 2023 024 [facility], [address] [facility], [place], [address], 03/24/2024 15:12:59 bcr-abl transloca tion, PCR, blood/bon e marrow [address] [facility], [address] [facility], [place], [address], 03/31/2024 09:14:22 chronic leukemia panel, flow cytometry , unspecifi ed specimen [address], [address] [place], [address], 03/31/2024 09:14:22 jak2 (V617F) mutation, blood/tis millie [address] [facility], [address] [place], [address], 03/31/2024 15:57:51 TSH, serum or plasma [address] [facility], [address] [place], [address], 03/31/2024 09:14:23 ldh, serum or plasma 2023 E[facility], [address] [place], [address], 03/24/2024 15:14:07 C-reactiv e protein, quantitat cassandra, serum or plasma [address] [facility], [address] [place], [address], 03/31/2024 09:14:22 ESR (erythroc yte sedimenta tion rate), blood [address] [facility], [address] [place], [address], 03/31/2024 09:14:23 iron + total iron-bind ing capacity (TIBC), serum [address] [facility], [address] [place], [address], 03/31/2024 09:14:23 iron saturatio n, serum 2023 024 [email or web address] [facility], [address] , [place], [address], 03/31/2024 09:14:23 Referral None recorded. Procedures None recorded. Surgeries None recorded. Imaging None recorded. Medication Orders None recorded. Patient TargetsNo targets recorded. Patient InstructionsNo instructions recorded. Reason for Referral None Reported. Results Created Date Observation Date Name Description Value Unit Range Abnormal Flag Note LastModifiedBy Organization Detail LastModifiedTime 03/24/2003/24/2024 CBC AUTO W DIFF WBC 11.1 K/uL 4.0-10 .5 high Not Available [facility] ([facility] [address] , [place], [address], 03/24/2024 14:31:13 03/24/2003/24/2024 CBC AUTO W DIFF RBC 4.3 M/mm3 4.2-6. 4 Not Available [facility] ([facility]) [address] , [place], [address], 03/24/2024 14:31:13 03/24/20 24 03/24/2024 CBC AUTO W DIFF HGB 13.0 gm/dL 12.5-1 6.0 Not Available [facility] ([facility]) [address] , [place], [address], 03/24/2024 14:31:13 03/24/20 24 03/24/2024 CBC AUTO W DIFF HCT 39.5 % 37.0-4 7.0 Not Available [facility] ([facility]) [address] , [place], [address], 03/24/2024 14:31:13 03/24/20 24 03/24/2024 CBC AUTO W DIFF MCV 91.9 fL 78-100 Not Available [facility] ([facility]) [address] , [place], [address], 03/24/2024 14:31:13 03/24/20 24 03/24/2024 CBC AUTO W DIFF MCH 30.2 pg 27-31 Not Available [facility] ([facility]) [address] , [place], [address], 03/24/2024 14:31:13 03/24/20 24 03/24/2024 CBC AUTO W DIFF MCHC 32.9 g/dL 32-36 Not Available [facility] ([facility]) [address] , [place], [address], 03/24/2024 14:31:13 03/24/2003/24/2024 CBC AUTO W DIFF RDW 14.1 % 11.5-1 4.0 high Not Available [facility] ([facility]) [address] , [place], [address], 03/24/2024 14:31:13 03/24/2003/24/2024 CBC AUTO W DIFF platelet count 528 K/uL 150-45 0 high Not Available [facility] ([facility]) [address], [place], [address], 03/24/2024 14:31:13 03/24/20 24 03/24/2024 CBC AUTO W DIFF MPV 10.2 fL 6-9.5 high Not Available [facility] ([facility]) [address] , [place], [address], 03/24/2024 14:31:13 03/24/20 24 03/24/2024 CBC AUTO W DIFF neutrophil% 41.8 % 43-65 low Not Available [facility] ([facility]) [address] [place], [address], 03/24/2024 14:31:13 03/24/20 24 03/24/2024 CBC AUTO W DIFF lymphocyte% 45.2 % 20.5-4 5.5 Not Available [facility] ([facility]) [address] [place], [address], 03/24/2024 14:31:13 03/24/20 24 03/24/2024 CBC AUTO W DIFF monocyte% 9.1 % 5.5-11 .7 Not Available [facility] ([facility]) [address] [facility], [place], [address], 03/24/2024 14:31:13 03/24/20 24 03/24/2024 CBC AUTO W DIFF eosinophil% 1.8 % 0.9-2. 9 Not Available [facility] ([facility]) [address] [facility], [place], [address], 03/24/2024 14:31:13 03/24/20 24 03/24/2024 CBC AUTO W DIFF basophil% 1.4 % 0.2-1. 0 high Not Available [facility] ([facility]) [address] [facility], [place], [address], 03/24/2024 14:31:13 03/24/20 24 03/24/2024 CBC AUTO W DIFF immature granulocytes % 0.7 % 0.0-0. 8 Not Available [facility] ([facility]) [address] [facility], [place], [address], 03/24/2024 14:31:13 03/24/2003/24/2024 CBC AUTO W DIFF nucleated red blood cells % 0.0 % Not Available [facility] ([facility]) [address] [facility], [place], [address], 03/24/2024 14:31:13 03/24/20 24 03/24/2024 CBC AUTO W DIFF neutrophil# 4.6 K/uL 2.2-4. 8 Not Available [facility] ([facility]) [address] [facility], [place], [address], 03/24/2024 14:31:13 03/24/20 24 03/24/2024 CBC AUTO W DIFF lymphocyte# 5.0 cell/ mcL 1.3-2. 9 high Not Available [facility] ([facility]) [address], [place], [address], 03/24/2024 14:31:13 03/24/20 24 03/24/2024 CBC AUTO W DIFF monocyte# 1.0 cell/ mcL 0.3-0. 8 high Not Available [facility] ([facility]) [address], [place], [address], 03/24/2024 14:31:13 03/24/20 24 03/24/2024 CBC AUTO W DIFF eosinophil# 0.2 cell/ mcL 0-0.2 Not Available [facility] ([facility]) [address], [place], [address], 03/24/2024 14:31:13 03/24/20 24 03/24/2024 CBC AUTO W DIFF basophil# 0.2 cell/ mcL 0.0-1. 0 Not Available [facility] ([facility]) [address], [place], [address], 03/24/2024 14:31:13 03/24/20 24 03/24/2024 CBC AUTO W DIFF immature gramulocytes # 0.08 K/uL Not Available [facility] ([facility]) [address] [facility], [place], [address], 03/24/2024 14:31:13 03/24/20 24 03/24/2024 CBC AUTO W DIFF nucleated red blood cells # 0.00 K/uL Not Available [facility] ([facility]) [address] [facility], [place], [address], 03/24/2024 14:31:13 03/24/20 24 03/24/2024 CBC AUTO W DIFF manual differential NO Not Available [facility] [address] [facility] [place], [address], 03/24/2024 14:31:13 03/24/20 24 03/24/2024 SED RATE sed rate auto 10 0-20 Not Available [facility] ([facility]) [address], [place], [address], 03/24/2024 14:54:07 03/24/20 24 03/24/2024 IRON STUDY (IRON /TIBC /%SAT ) iron 62 mcg/m L 40-180 Not Available [facility] ([facility]) [address], [place], [address], 03/24/2024 14:55:14 03/24/20 24 03/24/2024 IRON STUDY (IRON /TIBC /%SAT ) TIBC 285 mcg/d L 250-45 0 Not Available [facility] ([facility]) [address], [place], [address], 03/24/2024 14:55:14 03/24/20 24 03/24/2024 IRON STUDY (IRON /TIBC /%SAT ) %sat 22 15-55 Not Available [facility] ([facility]) [address], [place], [address], 03/24/2024 14:55:14 03/24/20 24 03/24/2024 COMP METAB OLIC PANEL sodium 137 mmol/ L 136-14 5 Not Available [facility] ([facility]) [address] , [place], [address], 03/24/2024 15:12:59 03/24/20 24 03/24/2024 COMP METAB OLIC PANEL potassium 3.3 mmol/ L 3.6-5. 0 low Not Available [facility] ([facility]) [address], [place], [address], 03/24/2024 15:12:59 03/24/20 24 03/24/2024 COMP METAB OLIC PANEL chloride 102 mmol/ L 98-107 Not Available [facility] ([facility]) [address], [place], [address], 03/24/2024 15:12:59 03/24/2003/24/2024 COMP METAB OLIC PANEL carbon dioxide 26.1 mmol/ L 21.0-3 2.0 Not Available [facility] ([facility]) [address] [facility], [place], [address], 03/24/2024 15:12:59 03/24/2003/24/2024 COMP METAB OLIC PANEL anion gap 12.2 Not Available [facility] ([facility]) [address] [facility], [place], [address], 03/24/2024 15:12:59 03/24/2003/24/2024 COMP METAB OLIC PANEL glucose 285 mg/dL 70-120 high Not Available [facility] ([facility]) [address] [facility], [place], [address], 03/24/2024 15:12:59 03/24/2003/24/2024 COMP METAB OLIC PANEL BUN 12 mg/dL 7-18 Not Available [facility] ([facility]) [address] [facility], [place], [address], 03/24/2024 15:12:59 03/24/2003/24/2024 COMP METAB OLIC PANEL creatinine 0.8 mg/dL 0.6-1. 3 Not Available [facility] ([facility]) [address] [facility], [place], [address], 03/24/2024 15:12:59 03/24/20 24 03/24/2024 COMP METAB OLIC PANEL glomerular filtration rate 93 mlper min 60- GFR LIMIT ATION : The eGFR equat ion CKD-E PI 2020 is not appli cable for pedia tric patie nts or great er than 90 years of age. The follo wing condi tions may alter the GFR resul t: extre mes in body size, malnu triti on or obesi ty, skele carla muscl e disea se, parap legia or quadr ipleg ia, veget luke diet or rapid ly mujica ing kiney funct ion. Not Available [facility] ([facility]) [address] [facility], [place], [address], 03/24/2024 15:12:59 03/24/20 24 03/24/2024 COMP METAB OLIC PANEL total protein 7.3 g/dL 6.4-8. 2 Not Available [facility] ([facility]) [address] [facility], [place], [address], 03/24/2024 15:12:59 03/24/20 24 03/24/2024 COMP METAB OLIC PANEL albumin 3.3 g/dL 3.4-5. 0 low Not Available [facility] ([facility]) [address] [facility], [place], [address], 03/24/2024 15:12:59 03/24/20 24 03/24/2024 COMP METAB OLIC PANEL globulin 4.0 Not Available [facility] ([facility]) [address] [facility], [place], [address], 03/24/2024 15:12:59 03/24/20 24 03/24/2024 COMP METAB OLIC PANEL alb/glob ratio 0.8 0.7-2 Not Available [facility] ([facility]) [address] [facility], [place], [address], 03/24/2024 15:12:59 03/24/20 24 03/24/2024 COMP METAB OLIC PANEL calcium 8.7 mg/dL 8.5-10 .5 Not Available [facility] ([facility]) [address] [facility], [place], [address], 03/24/2024 15:12:59 03/24/20 24 03/24/2024 COMP METAB OLIC PANEL bilirubin total 0.30 mg/dL 0.10-1 .00 Not Available [facility] ([facility]) [address] [facility], [place], [address], 03/24/2024 15:12:59 03/24/20 24 03/24/2024 COMP METAB OLIC PANEL AST (SGOT) 13 U/L 0-37 Not Available [facility] ([facility]) [address] [facility], [place], [address], 03/24/2024 15:12:59 03/24/20 24 03/24/2024 COMP METAB OLIC PANEL ALT (SGPT) 16 U/L 0-65 Not Available [facility] ([facility]) [address] [facility], [place], [address], 03/24/2024 15:12:59 03/24/20 24 03/24/2024 COMP METAB OLIC PANEL alk phosphatase 104 U/L 46-116 Not Available [facility] ([facility]) [address] [facility], [place], [address], 03/24/2024 15:12:59 03/24/20 24 03/24/2024 C-ABIODUN CTIVE PROTE IN (CRP) C-reactive protein, quant 0.6 mg/dL 0.05-0 .300 high Not Available [facility] ([facility]) [address] [facility], [place], [address], 03/24/2024 15:14:05 03/24/2003/24/2024 LDH (LD) LDH 138 U/L 0-190 Not Available [facility] ([facility]) [address] [facility], [place], [address], 03/24/2024 15:14:07 03/24/20 24 03/24/2024 THYRO ID STIMU LATIN G HORMO NE thyroid stim hormone 0.63 mIU/L 0.36-3 .74 Not Available [facility] ([facility]) [address] [facility], [place], [address], 03/24/2024 15:14:09 03/24/20 24 03/29/2024 BCR-A BL1 RT-PC R methodology: Rustam t . Total RNA is isola dina from the sampl e and subje ct to a real- time, rever se trans cript ase polym erase chain react ion (RT-P CR). The PCR prime rs and probe s are speci fic for BCR- ABL1 e13a2 , e14a2 and e1a2 fusio n trans cript s. The ABL1 trans cript is ampli fied as the contr ol for cDNA quant ity and quali ty. Seria l dilut ions of a valid ated posit cassandra contr ol RNA with known t(9;2 2) BCR-A BL1 are used as refer ence for quant ifica tion of BCR-A BL1 relat cassandra to ABL1. The numer ic BCR-A BL1 level is repor dina as % BCR- ABL1/ ABL1 and the detec tion sensi tivit y is 4.5 log below the stand hillary basel ine (<0.0 032%) . . This test was devel oped and its perfo rmanc e drew cteri stics deter mined by [employer] [facility]. It has not been clear ed or appro nurys by the Food and Drug Admin istra tion. Not Available [facility] ([facility]) [address] [facility], [place], [address], 03/29/2024 06:11:01 03/24/20 24 03/29/2024 BCR-A BL1 RT-PC R interpretati on: Negati ve NEGAT CASSANDRA for the BCR-A BL1 e1a2 (p190 ), e13a2 (b2a2 , p210) and e14a2 (b3a2 , p210) fusio n trans cript s. These resul ts do not rule out the prese nce of rare BCR-A BL1 trans cript s not detec dina by this assay . Not Available [facility] ([facility]) [address] [facility], [place], [address], 03/29/2024 06:11:01 03/24/20 24 03/29/2024 BCR-A BL1 RT-PC R b2a2 transcript <0.003 2 % % Not Available [facility] ([facility]) [address] [facility], [place], [address], 03/29/2024 06:11:01 03/24/20 24 03/29/2024 BCR-A BL1 RT-PC R b3a2 transcript <0.003 2 % % Not Available [facility] ([facility]) [address] [facility], [place], [address], 03/29/2024 06:11:01 03/24/20 24 03/29/2024 BCR-A BL1 RT-PC R e1a2 transcript <0.003 2 % % Not Available [facility] ([facility]) [address] [facility], [place], [address], 03/29/2024 06:11:01 03/24/20 24 03/29/2024 BCR-A BL1 RT-PC R pdf image . Perfo rmed at: [facility] [place] [address] [facility] [place] [address] Lab Direc tor: Catherine Eid [facility] , Phone : [phone] Perfo rmed at: TG [facility] [place] [address] , [place] [address] Lab Direc tor: Catherine Eid [facility] , Phone : [phone] Not Available [facility] ([facility]) [address] [facility], [place], [address], 03/29/2024 06:11:01 03/24/20 24 03/29/2024 BCR-A BL1 RT-PC R background Commen t . This assay can detec t three diffe rent types of BCR-A BL1 fusio n trans cript s assoc iated with CML, ALL, and AML: e13a2 (prev iousl y b2a2) and e14a2 (prev iousl y b3a2) (anupama r break point , p210) , as well as e1a2 (leonie r break point , p190) . The e13a2 and e14a2 trans cript value s are titra dina to the curre nt Inter natio nal Scale (IS). The stand caryldiz ed basel ine is 100% BCR-A BL1 (IS) and major molec ular respo nse (MMR) is equiv alent to 0.1% BCR-A BL1 (IS) corre spond ing to a 3-log reduc tion. Resul ts shruthi d be corre lated with appro priat e clini josi and labor atory infor matio n as indic ated. Not Available [facility] ([facility]) [address], [place], [address], 03/29/2024 06:11:01 03/24/20 24 03/29/2024 BCR-A BL1 RT-PC R director review: Rustam Luna, PhD, [facility] [address] Direc tor, [facility] [place] [address] [phone] Not Available [facility] ([facility]) [address] , [place], [address], 03/29/2024 06:11:01 03/24/20 24 03/31/2024 CHRON IC LEUKE NNAMDI/L NAPOLEON MA specimen type Rustam Rios heral blood Not Available [facility] ([facility]) [address], [place], [address], 03/31/2024 13:10:11 03/24/20 24 03/31/2024 CHRON IC LEUKE NNAMDI/L YMPHO MARÍA clinical information Rutsam blue CBC was not avail able for revie w at the time this r eport was prepa red. Not Available [facility] ([facility]) [address], [place], [address], 03/31/2024 13:10:11 03/24/20 24 03/31/2024 CHRON IC LEUKE NNAMDI/L YMPHO MA comment: Commen t . Each antib kala in this assay was utili zed to asses s for poten tial abnor malit ies of studi ed cell popul ation s or to drew cteri ze ident ified abnor malit ies. . This test was devel oped and its perfo rmanc e drew cteri stics deter mined by [facility]. It has not been clear ed or appro nurys by the U.S. Food and Drug Admin istra tion. . The FDA has deter mined that such clear ance or appro roz is not neces evaristo. This test is used for clini josi purpo ses. It shoul d not be regar ded as inves tigat ional or for resea rch. Perfo rmed at: -Y [facility] [place] [address] [place], [place] [address] Lab Direc tor: Catherine Eid [facility] , Phone : [phone] Perfo rmed at: TG [facility] [place] [address] , [place] [address] Lab Direc tor: Catherine Eid [facility] , Phone : [phone] Not Available [facility] ([facility]) [address] [facility], [place], [address], 03/31/2024 13:10:11 03/24/20 24 03/31/2024 CHRON IC LEUKE NNAMDI/L YMPHO MA flow comment Commen t . JAK2 V617F mutat ion elvira sis is reque sted and the resul t is pendi ng. The lymph ocyto sis is due to an incre ase in CD8+ T-patrice ls, sug gesti ve of a react cassandra proce ss. Clini josi corre latio n is recom kannan d. Not Available [facility] ([facility]) [address] [facility], [place], [address], 03/31/2024 13:10:11 03/24/20 24 03/31/2024 CHRON IC LEUKE NNAMDI/L YMPHO MA flow interpretati on Commen t . No signi fican t immun ophen otypi c abnor malit y detec dina. Lymph ocyto sis, see comme nt. Not Available [facility] ([facility]) [address] [facility], [place], [address], 03/31/2024 13:10:11 03/24/20 24 03/31/2024 CHRON IC LEUKE NNAMDI/L YMPHO MA leukocyte assessment Commen t . No monoc lonal B cell popul ation is detec dina. kappa :ortiz da ratio 1.9 There is no loss of, or aberr ant expre ssion of, the carrizales T ce ll antig ens to sugge st a neopl astic T cell proce ss. A decre ased CD4/T helpe r to CD8/T suppr essor cell ratio is detec dina. CD4:C D8 ratio 0.6 No circu latin g blast s are detec dina. There is no immun ophen otypi c evide nce of abnor mal myelo id m atura tion. Elvira sis of the leuko cyte popul ation shows : granu locyt es 55% , monoc ytes 8%, lymph ocyte s 37%, blast s <0.1% , B cells 4%, T cells 31%, NK c ells 2% Not Available [facility] ([facility]) [address] [facility], [place], [address], 03/31/2024 13:10:11 03/24/20 24 03/31/2024 CHRON IC LEUKE NNAMDI/L YMPHO MA resulting path name Commen t . Osvaldo Gary M.D. Ph.D Not Available [facility] ([facility]) [address] [facility], [place], [address], 03/31/2024 13:10:11 03/24/20 24 03/31/2024 CHRON IC LEUKE NNAMDI/L YMPHO MA phenotype chart Commen t . CD2 Roxanna l CD3 Roxanna l CD4 Roxanna l CD5 Roxanna l CD7 Roxanna l CD8 Roxanna l CD10 Roxanna l CD11b Roxanna l CD13 Roxanna l CD14 Roxanna l CD16 Roxanna l CD19 Roxanna l CD20 Roxanna l CD33 Roxanna l CD34 Roxanna l CD38 Roxanna l CD45 Roxanna l CD56 Roxanna l CD57 Roxanna l CD117 Roxanna l HLA-D R Roxanna l KAPPA Roxanna l LAMBD A Roxanna l CD64 Roxanna l Not Available [facility] ([facility]) [address] [facility], [place], [address], 03/31/2024 13:10:11 03/24/20 24 03/31/2024 CHRON IC LEUKE NNAMDI/L YMPHO MA analysis and gating strategy Commen t . 8 color elvira sis with CD45/ SSC luz marina ritchie Techn ical- Elvira sis perfo rmed at [facility] [employer], [address] [place] [address] Direc tor: Catherine Eid , [facility] Not Available [facility] ([facility]) [address] [place], [address], 03/31/2024 13:10:11 03/24/20 24 03/31/2024 CHRON IC LEUKE NNAMDI/L YMPHO MA viability Commen t . 97% Not Available [facility] ([facility]) [address] [place], [address], 03/31/2024 13:10:11 03/24/20 24 03/31/2024 EBV(E PSTEI N-BAR R VIRUS )AB PRO ebv Ab vca, IgM <36.0 U/mL 0.0-35 .9 Negat cassandra <36.0 Equiv ocal 36.0 - 43.9 Posit cassandra >43.9 Not Available [facility] ([facility]) [address] [place], [address], 03/31/2024 13:10:13 03/24/20 24 03/31/2024 EBV(E PSTEI N-BAR R VIRUS )AB PRO ebv Ab vca, IgG 336.0 U/mL 0.0-17 .9 high Negat cassandra <18.0 Equiv ocal 18.0 - 21.9 Posit cassandra >21.9 Not Available [facility] ([facility]) [address] [facility], [place], [address], 03/31/2024 13:10:13 03/24/20 24 03/31/2024 EBV(E PSTEI N-BAR R VIRUS )AB PRO ebv nuclear antigen Ab, IgG 404.0 U/mL 0.0-17 .9 high Negat cassandra <18.0 Equiv ocal 18.0 - 21.9 Posit cassandra >21.9 Not Available [facility] ([facility]) [address] [facility], [place], [address], 03/31/2024 13:10:13 03/24/20 24 03/31/2024 EBV(E PSTEI N-BAR R VIRUS )AB PRO interpretati on: Commen t . EBV Inter preta tion Chart Jung: Antib kala Prese nt + Antib kala Absen t - Inter preta tion VCA-I gM VCA-I gG EBNA- IgG . No previ ous infec tion/ - - - Susce ptibl e Prima ry infec tion (new + + - or recen t) Past Infec tion +or- + + See comme nt below * + - - *Resu lts indic ate infec tion with EBV at some time howev er canno t predi ct the timin g of the infec tion since antib odies to EBNA usual ly devel op after prima ry infec tion or, alter nativ sunni, appro ximat sunni 5-10% of patie nts with EBV never devel op antib odies to EBNA. Perfo rmed at: [facility] [address] [place] [address] [facility] Lab Direc tor: Bright almaraz PhD, Phone : [phone] Not Available [facility] ([facility]) [address] [facility], [place], [address], 03/31/2024 13:10:13 03/24/2003/31/2024 JAK2 V617 MUTAT ION DETEC TION jak2 v617f mutation detection Rustam blue Resul t: NEGAT CASSANDRA for the JAK2 V617F mutat ion. . Inter preta tion: The G to T nucle otide mujica e encod ing the V617F mutat ion was not detec dina. This resul t does not rule out the prese nce of the JAK2 mutat ion at a level below the sensi tivit y of detec tion of this assay , or the prese nce of other mutat ions withi n JAK2 not detec dina by this assay . This resul t does not rule out a diagn osis of polyc ythem ia vera, essen tial throm bocyt hemia or idiop athic myelo fibro sis as the V617F mutat ion is not detec dina in all patie nts with these disor ders. . Not Available [facility] ([facility]) [address], [place], [address], 03/31/2024 13:10:14 03/24/20 24 03/31/2024 JAK2 [id number] MUTAT ION DETEC TION director review Rustam Luna, PhD, [facility] [address] Direc tor, [facility] [place] [address] [phone] . This test was devtracey monge and its perfo rmanc e drew cteri stics deter mined by [employer]. It has not been clear ed or appro nurys by the Food and Drug Admin istra tion. Perfo rmed at: GARCÍA - [facility] rp RTP [address] [employer] [facility], [place] [address] 4916 Lab Direc tor: Catherine Eid [facility] , Phone : [phone] Perfo rmed at: MERCEDEZ - Lab[facility] rp RTP [address] , [place] [address] 7340 Lab Direc tor: Catherine Eid [facility] , Phone : [phone] Not Available [facility] ([facility]) [address], [place], [address], 03/31/2024 13:10:14 03/24/20 24 03/31/2024 JAK2 V617 MUTAT ION DETEC TION background Commen t . JAK2 is a cytop lasmi c tyros ine kinas e with a jung role in signa l trans ducti on from multi ple hemat opoie tic growt h facto r or assistant tors. A point mutat ion withi n exon 14 of the JAK2 gene ([id number] 9T) encod ing a valin e to pheny lalan ine subst ituti on at posit ion 617 of the JAK2 prote in (V617 F) has been ident ified in most patie nts with polyc ythem ia vera, and in about half of those with eithe r essen tial throm bocyt hemia or idiop athic myelo fibro sis. The V617F has also been detec dina, altho ugh infre quent ly, in other myelo id disor ders such as chron ic myelo monoc ytic leuke nnamdi and chron ic neutr ophil ic lueke nnamdi. V617F is an acqui red mutat ion that alter s a highl y conse rved valin e prese nt in the negat cassandra regul atory JH2 domai n of the JAK2 prote in and is predi cted to dysre gulat e kinas e activ ity. . Metho dolog y: Total genom ic DNA was extra cted and subje cted to TaqMa n real- time PCR ampli ficat ion/d etect ion. Two ampli ficat ion produ cts per sampl e were monit ored by real- time PCR using prime rs/pr obes speci fic to JAK2 wild type (WT) and JAK2 mutan t V617F . The ABI79 00 Absol [place] Quant itati on softw are will warren re the patie nt speci men valus e to the stand hillary curve s and gener ate perce nt value s for wild type and mutan t type. In vitro studi es have indic ated that this assay has an elvira tical sensi tivit y of 1%. . Refer ences : Sandro sumner EJ, Tahir LM, Candelaria osuna PJ, et al. Acqui red mutat ion of the tyros ine kinas e JAK2 in human myelo proli ferat cassandra disor ders. Travis t. 2004Jul 16 ; 365(6 540): 1054- 1061. Tevin Arreola V, Jackie clinton BRADEN. A uniqu e clona l JAK2 mutat ion leadi ng to const ituti ve signa ling cause s polyc ythae nnamdi vera. Natur e. 2004Aug 25; 434(5 430): 1144- 1144. Tanika quispe R, Arturo billy F, Deo , et al. A gain- of- funct ion mutat ion of JAK2 in myelo proli ferat cassandra disor ders. N Engl J Med. 2004Aug 25; 352(1 7):17 79-17 90. Not Available [facility] ([facility]) [address], [place], [address], 03/31/2024 13:10:14 03/24/20 24 12/24/2023 CT, neck, soft tissu e, w/ contr ast No observ ation record ed. [address] (Med Record) [address], [place], [address], 03/25/2024 12:35:45 03/24/20 24 12/24/2023 CT, neck, soft tissu e, w/ contr ast No observ ation record ed. [address] (Med Record) [address], [place], [address], 03/24/2024 13:14:12 03/24/20 24 12/24/2023 CT, neck, soft tissu e, w/ contr ast No observ ation record ed. [address] (Med Record) [address], [place], [address], 03/24/2024 15:29:00 11/12/24/2023 CT, neck, soft tissu e, w/ contr ast No observ ation record ed. [email or web address] (Med Record) [address], [place], [address], 03/25/2024 15:41:42 Result Notes None recorded. Problems Name Problem SNOMED Code Status Onset Date Resolution Date Notes Provider Name and Address Organization Details Recorded Time Depressive disorder 09220286 Active 024 Mony Morrison null, [place] - [facility] - [place] & [place] 4 13:08:29 High glucose level in blood 601542144 Active 021 Mony Morrison null, [place] - [facility] [place] 13:08:29 Anxiety 70410808 Active 024 Mony Morrison null, [place] - [facility] [place] 4 13:08:29 Problem Notes None recorded. Procedures Surgical History Date Name Laterality Status Provider Name and Address Organization Details Recorded Time appendectomy completed Mony SOMMERS - [facility] - [place] 03/24/2024 13:10:16 cholecystectomy completed Mony SOMMERS - [facility] - [place] & [place] 03/24/2024 13:10:29 splenectomy completed Mony SOMMERS - [facility] - [place] 03/24/2024 13:11:09 tonsillectomy completed Mony SOMMERS - [facility] - [place] & [place] 03/24/2024 13:15:07 Imaging Results Imaging Date Name Status LastModified by Organiz ation Details LastModified Time 12/24/2023 CT, neck, soft tissue, w/ contrast completed [address] (Med Record) [address], [place], [address], 03/25/2024 12:35:45 12/24/2023 CT, neck, soft tissue, w/ contrast completed [address] (Med Record) [address], [place], [address], 03/24/2024 13:14:12 12/24/2023 CT, neck, soft tissue, w/ contrast completed [email or web address] (Med Record) [address], [place], [address], 03/24/2024 15:29:00 12/24/2023 CT, neck, soft tissue, w/ contrast completed [email or web address] [facility] (Med Record) [address], [place], [address], 03/25/2024 15:41:42 Procedure Notes None recorded. Medical Equipment None [...] completed Not Available Not Available Not Available Dimas Max U-300 SoloStar 300 unit/mL (3 mL) subcutaneou s insulin pen Inject 30 units every day by subcutane ous route as directed for 90 days. 2023 active Not Available Not Available Not Avai lable Dexcom G6 Transmitter device REPLACE EVERY 3 MONTHS active Not Available Not Available No t Available BD Kim 2nd Gen Pen Needle 32 gauge x USE 1 PEN NEEDLE 4 TIMES DAILY [...] Not Available No t Available Dexcom G7 Systematic Theology Professor USE DIRECTED active Not Available Not Available [...] and Address Organization Details Last Updated DateTime 167.64 cm 28.1 kg/m2 85824.7 9 g 98 % 98 % 93 /min 97.8 [degF] 106 mm[Hg] 68 mm[Hg] Mony DONNELLY [facility] & [place] 13:15:40 Social History Question Answer Notes LastModified by Organizat ion Details LastModified Time Tobacco Smoking Status Never Smoker Mony nieto, [place] DONNELLY [facility] & [place] 03/24/2024 13:09:48 What Is Your Level Of Alcohol Consumption? 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 No [email or web address] Information not available 03/24/2024 Sex: Female Functional [...] Influenza, split virus, quadrivalent, preservative 03/09/2022 completed Monylal Stevens[place] null, [place] - [facility] - [place] 03/24/2024 13:08:33 Influenza, recombinant, quadrivalent, PF 02/15/2020 completed Mony Hildaman null, [place] [facility] [place] 03/24/2024 13:08:33 Influenza, live, trivalent, intranasal 01/27/2013 completed Mony Morrison null, [place] - [facility] & [place] 03/24/2024 13:08:33 COVID-19, mRNA, LNP-S, PF, 100 mcg/0.5mL dose or 50 mcg/0.25mL dose 05/14/2020 completed Mony [place] null, [place] [facility] [place] 03/24/2024 13:08:33 COVID-19, mRNA, LNP-S, PF, 100 mcg/0.5mL dose or 50 mcg/0.25mL dose 07/09/2020 completed Mony Morrison null, [place] - [facility] - [place] 03/24/2024 13:08:33 Tdap 08/28/2017 completed Mony Stevenssyl null, [place] - [facility] - [place] 03/24/2024 13:08:33 Pneumococcal conjugate PCV 13 09/04/2017 completed Mony [place] null, [place] [facility] [place] 03/24/2024 13:08:33 meningococcal MCV4P 08/22/2017 completed Mony [place] null, [place] [facility] [place] 03/24/2024 13:08:33 Influenza, split virus, quadrivalent, PF 12/31/2013 completed Monyall [place] null[place] [facility] [place] 03/24/2024 13:08:33 Influenza, split virus, quadrivalent, PF 02/02/2019 completed Mony Hildaman null, [place] [facility] [place] 03/24/2024 13:08:33 Past Encounters Encounter ID Performer Location Encounter Start Date Encounter Closed Date Diagnosis/Indication Diagnosis SNOMED-CT Code Diagnosis ICD10 Code [id number] Magnolia Nagel PA-C [facility] [address] [place] [address] 03/24/2024 13:00:40 03/24/2024 13:46:29 Leukocytosis 904764239 D72.829 Thrombocytosis 6454982 D 75.839 Cervical lymphadenopathy 860668365 R59.0 Unintentio nal weight loss 409372256 R63.4 History of splenectomy 538294832 Z90.81 Chronic tonsillitis 9097 9004 J35.01 Health Concerns Section Related Observation LastModified by Organization Detai ls LastModified Time None Recorded Concern Status LastModified by Organization Details LastModified Time None Recorded Advance Directives Directive None Recorded Payers Encounter Date Sequence Insurance Name Policy Number Policy Mccarty Covered Member ID Mccarty Member ID Guarantor Name 03/24/2024 1 [place] [employer] [place] [id number] Lamine Garcia [id number] Olya Garcia Notes Date Note Type Note Provider Name and Address Organization Details Recorded Time 03/24/2024 text/html 43 year old fema le for evaluation of cervical lymphadenopathy leukocytosis and thrombocytosis. Patient has had recurrent tonsillitis. Patient was hospitalized with pneumonia in November 2023. She has had cervical lymphadenopathy and was evaluated by ENT at [facility]. ENT recommended tonsillectomy. She is scheduled for [...] 92. Normal MCH and MCHC. Platelet count 243713. Differential with absolute lymphocyte count 5.4. No [...] up with further recommendations. Magnolia Nagel PA-C [address] , [place], [address], [facility] [place] [facility] [place] 03/24/2024 14:22:20 OBGyn Episode No OBEpisode recorded.
--- OUTSIDE RECORDS SUMMARY | 2024-04-07 07:13 | XMS_ITS | Encounter Summary ---
Author Organization [facility] Address [address] [place] [address] Care Team Providers Care Poker Room Manager Name Role Phone Unavailable Primary Care Provider Unavailabl e Encounter Details Date Type Department Care Team (Late st Contact Info) Description 12/09/2013 11:26 AM EDT - 12/09/2013 11:59 PM EDT Hospital Encounter [facility] [address] [facility] [address] [place] [address] Riky Hart MD 1760 [facility] [address] [place] [address] Social History Tobacco Use Types Packs/Day Years [...] EDT) TSH 2.389 0.350 - 5.350 UIU/mL [facility] Comment: Specimens containing fluorescein can produce falsely depressed values with this assay. Patients undergoing fluorescein dye angiography should wait 72 hours post- treatment before testing. Blood specimen (specimen) 12/09/2013 11:28 AM EDT [facility] - 12/09/2013 1:44 PM EDT Specimen Type: Blood us Riky Hart MD LAB BLOOD ORDERABLES Final Resul t Performing Organization Address [facility] de Phone Number [facility] [address] [place] [address], * (ABNORMAL) CBC (No diff) (12/09/2013 11:28 AM EDT) WBC 11.19(H) 3.50 - 10.80 K/[facility] RBC 4.73 3.89 - 5.14 /[facility] Hemoglobin 14.1 11.5 - 15.5 g/dL [facility] Hematocrit 43.3 34.5 - 44.0 % [facility] MCV 91.5 80.0 - 99.0 fL [facility] MCH 29.8 27.0 - 31.0 pg [facility] MCHC 32.6 32.0 - 36.0 g/dL [facility] RDW-CV 13.8 11.3 - 14.5 % [facility] Platelets 381 150 - 450 K/[facility] Blood specimen (specimen) 12/09/2013 11:28 AM EDT [facility] - 12/09/2013 1:15 PM EDT Specimen Type: Blood us Riky Hart MD LAB BLOOD ORDERABLES Final Resul t Performing Organization Address [facility] de Phone Number [facility] [address] [place] [address], * Antibody Screen (12/09/2013 11:28 AM EDT) Antibody Screen Negative [facility] Blood specimen (specimen) 12/09/2013 11:28 AM EDT [facility] - 12/09/2013 1:54 PM EDT Specimen Type: Blood us Riky Hart MD BLOOD BANK TEST ORDERABLES Final Result Performing Organization Address City/[facility] Hospital/ZIP Co de Phone Number [facility] [address] [place] [address], * ABO/Rh (12/09/2013 11:28 AM EDT) ABORh O Rh Positive [facility] Blood specimen (specimen) 12/09/2013 11:28 AM EDT [facility] - 12/09/2013 1:54 PM EDT Specimen Type: Blood us Riky Hart MD BLOOD BANK TEST ORDERABLES Final Result Performing Organization Address [facility] [place] [address], documented in this encounter Visit Diagnoses Not on filedocumented in this encounter
--- OUTSIDE RECORDS SUMMARY | 2024-04-07 07:13 | XMS_ITS | Encounter Summary ---
Author Organization [facility] Address [address] [place] [address] Care Team Providers Care Entry Level Software Engineer Name Role Phone Clyde Almodovar MD Primary Care Provider Reason for Referral * Diagnostic Imaging (Routine) - Closed Specialty Diagnoses / Procedures Referred By Contac t Referred To Contact Radiology Diagnoses Encounter for screening mammogram for breast cancer Procedures Mammo screening digital tomosynthesis bilateral w Jeannette Edwards MD [facility] [address] [place] [address] Phone: tel: fax: PS[facility]ATRIC [address] [place] [address] Phone: tel: Referral ID Status Reason Start Date Expiration Date Visits Re quested Visits Authorized [id number] Closed 10/06/2019 10/05/2020 1 1 Reason for Visit * Diagnostic Imaging (Routine) - Closed Specialty Diagnoses / Procedures Referred By Contac t Referred To Contact Radiology Diagnoses Encounter for screening mammogram for breast cancer Procedures Mammo screening digital tomosynthesis bilateral w Jeannette Edwards MD [facility] [address] [place] [address] Phone: tel: fax: PS[facility]CHIATRIC [address] [place] [address] Phone: tel: Referral ID Status Reason Start Date Expiration Date Visits Re quested Visits Authorized [id number] Closed 10/06/2019 10/05/2020 1 1 Encounter Details Date Type Department Care Team (Late st Contact Info) Description 11/24/2019 8:00 AM EDT - 11/24/2019 11:59 PM EDT Hospital Encounter [facility] [address] [place] [address] Jeannette Centeno MD [address] [place] [address] [place] [address] Encounter for screening mammogram for [...] cancer documented in this encounter Care Teams Entry Level Software Engineer Relationship Specialty Start Date End Date Clyde Almodovar MD [facility]0 [facility] [address] [facility] 2 [place] [address] PCP - General Family Medicine 11/24/19 documented as of this encounter
--- OUTSIDE RECORDS SUMMARY | 2024-04-07 07:13 | XMS_ITS | Encounter Summary ---
[facility] Address [address] [place] [address] Care Team Providers Care Pipelines Manager Name Role Phone Unavailable Primary Care Provider Unavailabl e Encounter Details Date Type Department Care Team (Late st Contact Info) Description 03/04/2014 11:10 AM EST - 03/04/2014 11:59 PM EST Hospital Encounter [facility] [address] [facility] [address] [place] [address] Riky Hart MD 1760 [facility] [address] [place] [address] Social History Tobacco Use Types Packs/Day Years [...] (03/04/2014 11:13 AM EST) Estradiol 179 pg/mL [facility] Comment: DF by IF @ 03/04/2014 [...] Resul t [facility] [address] [place] [address], documented in this encounter Visit Diagnoses Not on filedocumented in this encounter
--- OUTSIDE RECORDS SUMMARY | 2024-04-07 07:13 | XMS_ITS | Encounter Summary ---
[facility] Address [address] [place] [address] Care Team Providers Care Minister Of Religion Name Role Phone Unavailable Primary Care Provider Unavailabl e Encounter Details Date Type Department Care Team (Late st Contact Info) Description 03/23/2014 10:37 AM EST - 03/23/2014 11:59 PM EST Hospital Encounter [facility] [address] [facility] [address] [place] [address] Riky Hart MD 1760 [facility] [address] [place] [address] Social History Tobacco Use Types Packs/Day Years [...] 10:44 AM EST) Estradiol 17 pg/mL [facility] Comment: DF by IF @ 03/23/2014 11:32 Males: ?0.0-52.0 pg/mL Adult Female: ?Follicular Phase ? 11.0-165.0 pg/mL ?Midcycle ?146.0-526.0 pg/mL ?Luteal Phase ? 33.0-196.0 pg/mL ?Postmenopausal ?ND-37.0 pg/mL Blood specimen (specimen) 03/23/2014 10:44 AM EST Narrative [facility] - 03/23/2014 11:32 AM EST Specimen Type: Blood us Riky Hart MD LAB BLOOD ORDERABLES Final Resul t [facility] [address] [place] [address], documented in this encounter Visit Diagnoses Not on filedocumented in this encounter
--- OUTSIDE RECORDS SUMMARY | 2024-04-07 07:13 | XMS_ITS | Encounter Summary ---
[facility] Address [address] [place] [address] Care Team Providers Care Adobe Layer Helper Name Role Phone Unavailable Primary Care Provider Unavailabl e Encounter Details Date Type Department Care Team (Late st Contact Info) Description 03/02/2014 10:43 AM EST - 03/02/2014 11:59 PM EST Hospital Encounter [facility] [address] [facility] [address] [place] [address] Riky Hart MD 1760 [facility] [address] [place] [address] Social History Tobacco Use Types Packs/Day Years [...] (03/02/2014 10:46 AM EST) Estradiol 85 pg/mL [facility] Comment: DF by IF @ 03/02/2014 15:03 Males: ?0.0-52.0 pg/mL Adult Female: ?Follicular Phase ? 11.0-165.0 pg/mL ?Midcycle ?146.0-526.0 pg/mL ?Luteal Phase ? 33.0-196.0 pg/mL ?Postmenopausal ?ND-37.0 pg/mL Blood specimen (specimen) 03/02/2014 10:46 AM EST Narrative [facility] - 03/02/2014 3:03 PM EST Specimen Type: Blood us Riky Hart MD LAB BLOOD ORDERABLES Final Resul t [facility] [address] [place] [address], documented in this encounter Visit Diagnoses Not on filedocumented in this encounter
--- OUTSIDE RECORDS SUMMARY | 2024-04-07 07:13 | XMS_ITS | Encounter Summary ---
Author Organization [facility] Address [address] [place] [address] Care Team Providers Care Blow Mold Operator Name Role Phone Unavailable Primary Care Provider Unavailabl e Encounter Details Date Type Department Care Team (Late st Contact Info) Description 02/24/2014 10:55 AM EDT - 02/24/2014 11:59 PM EDT Hospital Encounter [facility] [address] [facility] [address] [place] [address] Riky Hart MD 1760 [facility] [address] [place] [address] Social History Tobacco Use Types Packs/Day Years [...] (02/24/2014 10:56 AM EDT) Estradiol 30 pg/mL [facility] Comment: DF by IF @ 02/24/2014 18:18 Males: ?0.0-52.0 pg/mL Adult Female: ?Follicular Phase ? 11.0-165.0 pg/mL ?Midcycle ?146.0-526.0 pg/mL ?Luteal Phase ? 33.0-196.0 pg/mL ?Postmenopausal ?ND-37.0 pg/mL Blood specimen (specimen) 02/24/2014 10:56 AM EDT Narrative [facility] - 02/24/2014 6:18 PM EDT Specimen Type: Blood us Riky Hart MD LAB BLOOD ORDERABLES Final Resul t [facility] [address] [place] [id number], documented in this encounter Visit Diagnoses Not on filedocumented in this encounter
--- OUTSIDE RECORDS SUMMARY | 2024-04-07 07:13 | XMS_ITS | Encounter Summary ---
[facility] Address [address] [place] [address] Care Team Providers Care Road Hogger Operator Name Role Phone Unavailable Primary Care Provider Unavailabl e Encounter Details Date Type Department Care Team (Late st Contact Info) Description 03/30/2014 10:28 AM EST - 03/30/2014 11:59 PM EST Hospital Encounter [facility] [address] [facility] [address] [place] [address] Riky Hart MD [address] [facility] [address] [place] [address] Social History Tobacco Use Types Packs/Day Years [...] (03/30/2014 10:34 AM EST) Estradiol 102 pg/mL [facility] Comment: DF by IF @ 03/30/2014 11:33 Males: ?0.0-52.0 pg/mL Adult Female: ?Follicular Phase ? 11.0-165.0 pg/mL ?Midcycle ?146.0-526.0 pg/mL ?Luteal Phase ? 33.0-196.0 pg/mL ?Postmenopausal ?ND-37.0 pg/mL Blood specimen (specimen) 03/30/2014 10:34 AM EST Narrative [facility] - 03/30/2014 11:33 AM EST Specimen Type: Blood us Riky Hart MD LAB BLOOD ORDERABLES Final Resul t [facility] [address] [place] [address], documented in this encounter Visit Diagnoses Not on filedocumented in this encounter
--- OUTSIDE RECORDS SUMMARY | 2024-04-07 07:13 | XMS_ITS | Encounter Summary ---
[facility] Address [address] [place] [address] Care Team Providers Care Cool Roofing Installer Name Role Phone Unavailable Primary Care Provider Unavailabl e Encounter Details Date Type Department Care Team (Late st Contact Info) Description 04/02/2014 9:00 AM EST - 04/02/2014 11:59 PM EST Hospital Encounter [facility] [address] [facility] [address] [place] [address] Riky Hart MD 1760 [facility] [address] [place] [address] Social History Tobacco Use Types Packs/Day Years [...] (04/02/2014 9:06 AM EST) Estradiol 233 pg/mL [facility] Comment: DF by IF @ 04/02/2014 11:23 Males: ?0.0-52.0 pg/mL Adult Female: ?Follicular Phase ? 11.0-165.0 pg/mL ?Midcycle ?146.0-526.0 pg/mL ?Luteal Phase ? 33.0-196.0 pg/mL ?Postmenopausal ?ND-37.0 pg/mL Blood specimen (specimen) 04/02/2014 9:06 AM EST Narrative [facility] - 04/02/2014 11:23 AM EST Specimen Type: Blood us Riky Hart MD LAB BLOOD ORDERABLES Final Resul t [facility] [address] [place] [address], documented in this encounter Visit Diagnoses Not on filedocumented in this encounter
--- OUTSIDE RECORDS SUMMARY | 2024-04-07 07:13 | XMS_ITS | Data Portability ---
Author Organization [facility], [facility] Address [address] [place] [address] Care Team Providers [employer] Name Role Phone JESS MAHMOOD Primary Care Provider [phone] Assessment No assessment recorded. 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 Not available Not available Not available DERMATOL OGY VISIT 2024 01:00P M OLIVER SCHMIDT MD Not available Not available Not available Lab glucose, fingerst ick, blood 2023 024 [email or web address] 8 [facility] , [address] [place] [address], [address], 06/27/2023 13:38:37 hemoglob in A1C, fingerst ick 2023 024 [email or web address] 8 [facility] , [address] [place] [address], [address], 06/27/2023 13:38:36 glucose, fingerst ick, blood 2023 024 [email or web address] 8 [facility] , [address] [place] [address], [address], 01/09/2024 15:29:36 hemoglob in A1C, fingerst ick 2023 024 [email or web address] 8 [facility] , [address] [place] [address], [address], 01/09/2024 15:29:38 CBC w/ auto diff 2023 024 [facility] [place] [place], [address] [place] [address], [address], 02/11/2024 20:50:02 CMP, serum or plasma 2023 024 [facility], [address] [place] [address], [address], 02/11/2024 19:51:15 urinalys is, complete 2023 [facility] [place] [place], [address] [place] [address], [address], 02/11/2024 19:53:32 CBC w/ auto diff [address], [address] [place] [address], [address], 04/04/2024 13:13:57 CMP, serum or plasma [address], [address] [place] [address], [address], 04/04/2024 13:13:58 ESR (erythro cyte sediment ation rate), blood [address] [facility], [address] [place] [address], [address], 04/04/2024 13:13:58 ldh, serum or plasma [address], [address] [place] [address], [address], 04/04/2024 13:13:58 Referral hematolo gist/onc ologist referral 2023 ENRICO Peter MD, [address], [address], [place], [address], 03/24/2024 14:24:31 Procedures None recorded . Surgeries None recorded . Imaging None recorded . Medication Orders fenofibr ate 160 mg tablet 2023 024 [email or web address] 8 [facility], [address], [address], 06/27/2023 13:38:35 Gvoke HypoPen 2-Pack 1 mg/0.2 mL subcutan eous auto-inj nicolás 2023 024 [email or web address] [id number] 8 [facility], [address], [address], 06/27/2023 13:38:35 Humalog KwikPen (U-100) Insulin 100 unit/mL subcutan eous 2023 024 [place] [id number] 8 [facility], [address], [address], 06/27/2023 13:38:34 Mounjaro 7.5 mg/0.5 mL subcutan eous pen injector [address] [facility], [address], [address], 01/09/2024 15:09:51 Mounjaro 10 mg/0.5 mL subcutan eous pen injector [address] [facility], [address], [address], 01/09/2024 15:29:44 Toujeo Max U-300 SoloStar 300 unit/mL (3 mL) subcutan eous insulin pen [address] [facility], [address], [address], 01/09/2024 15:29:46 ceftriax one 500 mg solution for injectio n 2023 [email or web address] Not available 03/24/2024 13:57:18 Augmenti n 875 mg-125 mg tablet [address] [facility], [address] [place], [address], 03/24/2024 13:57:19 prometha zine 12.5 mg tablet [address] [facility], [address] [place], [address], 03/07/2024 11:24:34 Patient TargetsNo targets recorded. Patient InstructionsNo instructions recorded. Reason for Referral Referring Physician: Brian Hoyt, Internal Medicine, Encounter Date: 03/07/2024 Results Created Date Observation Date Name Description Value Unit Range Abnormal Flag Note LastModifiedBy Organization Detail LastModifiedTime 06/27/1906/27/2023 hemog lobin A1C, finge rstic k hemoglobin A1C % 7.1 % 4.0 - 5.6 Not Available [facility] [address], [address], 06/26/2023 12:48:48 06/27/19 24 06/27/2023 gluco se, finge rstic k, blood glucose, fingerstick 77 mg/dL 70 - 100 Not Available [facility] [address], [address], 06/26/2023 12:48:48 01/09/20 24 01/09/2024 hemog lobin A1C, finge rstic k hemoglobin A1C % 10.8 % 4.0 - 5.6 Not Available [facility] [address], [address], 01/08/2024 08:24:06 01/09/20 24 01/09/2024 gluco se, finge rstic k, blood glucose, fingerstick 303 mg/dL 70 - 100 Not Available [facility] [place] [address] [place] [address], [address], 01/08/2024 08:24:06 02/11/20 24 02/11/2024 COMP. METAB OLIC PANEL glucose 230 mg/dL 74-100 high Not Available [facility] [address] [place] [address], [address], 02/11/2024 19:51:15 02/11/20 24 02/11/2024 COMP. METAB OLIC PANEL blood urea nitrogen 12 mg/dL 6-20 normal Not Available [facility] [address] [place] [address], [address], 02/11/2024 19:51:15 02/11/20 24 02/11/2024 COMP. METAB OLIC PANEL creatinine 0.60 mg/dL 0.50-0 .95 normal Not Available [facility] [address] [place] [address], [address], 02/11/2024 19:51:15 02/11/20 24 02/11/2024 COMP. METAB OLIC PANEL BUN/creatini ne ratio 20 (calc ) 10-20 normal Not Available [facility] [address] [place] [address], [address], 02/11/2024 19:51:15 02/11/20 24 02/11/2024 COMP. METAB OLIC PANEL sodium 136 mmol/ L 136-14 5 normal Not Available [facility] [address] [place] [address], [address], 02/11/2024 19:51:15 02/11/20 24 02/11/2024 COMP. METAB OLIC PANEL potassium 4.0 mmol/ L 3.4-5. 0 normal Not Available [facility] [address] [place] [address], [address], 02/11/2024 19:51:15 02/11/20 24 02/11/2024 COMP. METAB OLIC PANEL chloride 101 mmol/ L 98-107 normal Not Available [facility] [address] [place] [address], [address], 02/11/2024 19:51:15 02/11/20 24 02/11/2024 COMP. METAB OLIC PANEL carbon dioxide 19 mmol/ L 22-31 low Not Available [facility] [address] [place] [address], [address], 02/11/2024 19:51:15 02/11/2002/11/2024 COMP. METAB OLIC PANEL anion gap 16 (calc ) 7-25 normal Not Available [facility] [address] [place] [address], [address], 02/11/2024 19:51:15 02/11/20 24 02/11/2024 COMP. METAB OLIC PANEL calcium 9.7 mg/dL 8.6-10 .2 normal Not Available [facility] [address] [place] [address], [address], 02/11/2024 19:51:15 02/11/20 24 02/11/2024 COMP. METAB OLIC PANEL total protein 7.7 g/dL 6.4-8. 3 normal Not Available [facility] [address] [place] [address], [address], 02/11/2024 19:51:15 02/11/20 24 02/11/2024 COMP. METAB OLIC PANEL albumin 4.0 g/dL 3.5-5. 2 normal Not Available [facility] [address] [place] [address], [address], 02/11/2024 19:51:15 02/11/20 24 02/11/2024 COMP. METAB OLIC PANEL globulin 3.7 1.5-4. 5 normal Not Available [facility] [address] [place] [address], [address], 02/11/2024 19:51:15 02/11/20 24 02/11/2024 COMP. METAB OLIC PANEL albumin/glob ulin ratio 1.1 (calc ) 1.1-2. 5 normal Not Available [facility] [address] [place], [address], 02/11/2024 19:51:15 02/11/20 24 02/11/2024 COMP. METAB OLIC PANEL bilirubin, total 0.3 mg/dL 0.1-1. 2 normal Not Available [facility] [address] [place], [address], 02/11/2024 19:51:15 02/11/2002/11/2024 COMP. METAB OLIC PANEL alkaline phosphatase 105 U/L 30-121 normal Not Available [facility] [address] [place] [address], [address], 02/11/2024 19:51:15 02/11/20 24 02/11/2024 COMP. METAB OLIC PANEL AST 11 U/L 0-32 normal Not Available [facility] [address] [place] [address], [address], 02/11/2024 19:51:15 02/11/20 24 02/11/2024 COMP. METAB OLIC PANEL ALT 10 U/L 0-33 normal Not Available [facility] [address] [place] [address], [address], 02/11/2024 19:51:15 02/11/20 24 02/11/2024 COMP. METAB OLIC PANEL GFR 113 >= 60 normal NOT E New calcu latio n for GFR (CKD- EPI 2020) is formu lated witho ut race adjus tment facto rs at the recom menda tion of the [facility] of Nephr ology . This calcu latio n has not been valid ated in pregn ant women . For pedia flavio rosarioe nts refer to https ://ww w.kid amelia.o rg/pr ofess ional s/KDO QI/gf r_cal culat orPed Not Available [facility] [address] [place], [address], 02/11/2024 19:51:15 02/11/2002/11/2024 URINA LYSIS color Rhea normal Not Available [facility] [address] [place], [address], 02/11/2024 19:53:32 02/11/2002/11/2024 URINA LYSIS appearance Light turbid normal Not Available [facility] [address] [place], [address], 02/11/2024 19:53:32 02/11/2002/11/2024 URINA LYSIS glucose 250 mg/dL normal abnormal Not Available [facility] [address] [place], [address], 02/11/2024 19:53:32 02/11/2002/11/2024 URINA LYSIS bilirubin Negati ve mg/dL negati ve normal Not Available [facility] [address] [place], [address], 02/11/2024 19:53:32 02/11/2002/11/2024 URINA LYSIS ketone 5 mg/dL negati ve abnormal Not Available [facility] [address] [place], [address], 02/11/2024 19:53:32 02/11/2002/11/2024 URINA LYSIS specific gravity 1.040 1.003- 1.035 high Not Available [facility] [address] [place], [address], 02/11/2024 19:53:32 02/11/2002/11/2024 URINA LYSIS blood 25 /uL negati ve abnormal Not Available [facility] [address] [place], [address], 02/11/2024 19:53:32 02/11/20 24 02/11/2024 URINA LYSIS pH 5 5.0 - 8.0 normal Not Available [facility] [address] [place] [address], [address], 02/11/2024 19:53:32 02/11/20 24 02/11/2024 URINA LYSIS protein 15 mg/dL negati ve abnormal Not Available [facility] [address] [place] [address], [address], 02/11/2024 19:53:32 02/11/2002/11/2024 URINA LYSIS urobilinogen Normal mg/dL normal normal Not Available [facility] [address] [place] [address], [address], 02/11/2024 19:53:32 02/11/2002/11/2024 URINA LYSIS nitrite Negati ve negati ve normal Not Available [facility] [address] [place] [address], [address], 02/11/2024 19:53:32 02/11/2002/11/2024 URINA LYSIS leukocyte esterase 100 /uL negati ve abnormal Not Available [facility] [address] [place] [address], [address], 02/11/2024 19:53:32 02/11/2002/11/2024 URINA LYSIS mucus, urine 2+ /lpf not establ ished normal Not Available [facility] [address] [place] [address], [address], 02/11/2024 19:53:32 02/11/2002/11/2024 URINA LYSIS WBC, urine > 30 0-5/hp f abnormal Not Available [facility] [address] [place] [address], [address], 02/11/2024 19:53:32 02/11/2002/11/2024 URINA LYSIS RBC, urine 3-10 0-2/hp f abnormal Not Available [facility] [address] [place] [address], [address], 02/11/2024 19:53:32 02/11/20 24 02/11/2024 URINA LYSIS squamous epi. cells > 10 0-5/hp f abnormal Not Available [facility] [address] [place] [address], [address], 02/11/2024 19:53:32 02/11/2002/11/2024 URINA LYSIS bacteria 2+ /hpf none seen abnormal Not Available [facility] [address] [place] [address], [address], 02/11/2024 19:53:32 02/11/2002/11/2024 URINA LYSIS yeast, urine Many /hpf none seen abnormal Not Available [facility] [address] [place] [address], [address], 02/11/2024 19:53:32 02/11/2002/11/2024 COMPL ETE BLOOD COUNT white blood cells 14.5 10*3/ uL 3.8-10 .8 high Not Available [facility] [address] [place] [address], [address], 02/11/2024 20:50:01 02/11/2002/11/2024 COMPL ETE BLOOD COUNT red blood cells 4.85 10*6/ uL 3.80-5 .20 normal Not Available [facility] [address] [place] [address], [address], 02/11/2024 20:50:01 02/11/2002/11/2024 COMPL ETE BLOOD COUNT hemoglobin 15.1 g/dL 12.0-1 6.0 normal Not Available [facility] [address] [place] [address], [address], 02/11/2024 20:50:01 02/11/2002/11/2024 COMPL ETE BLOOD COUNT hematocrit 44.7 % 35.0-4 7.0 normal Not Available [facility] [address] [place] [address], [address], 02/11/2024 20:50:01 02/11/20 24 02/11/2024 COMPL ETE BLOOD COUNT MCV 92 fL 80-100 normal Not Available [facility] [address] [place] [address], [address], 02/11/2024 20:50:01 02/11/2002/11/2024 COMPL ETE BLOOD COUNT MCH 31 pg 26-35 normal Not Available [facility] [address] [place] [address], [address], 02/11/2024 20:50:01 02/11/2002/11/2024 COMPL ETE BLOOD COUNT MCHC 34 g/dL 32-36 normal Not Available [facility] [address] [place] [address], [address], 02/11/2024 20:50:01 02/11/2002/11/2024 COMPL ETE BLOOD COUNT RDW 14.7 % 11.0-1 5.0 normal Not Available [facility] [address] [place] [address], [address], 02/11/2024 20:50:01 02/11/2002/11/2024 COMPL ETE BLOOD COUNT MPV 8.9 fL 6.2-10 .5 normal Not Available [facility] [address] [place] [address], [address], 02/11/2024 20:50:01 02/11/2002/11/2024 COMPL ETE BLOOD COUNT platelet count 518 10*3/ uL 150-40 0 high Not Available [facility] [address] [place] [address], [address], 02/11/2024 20:50:01 02/11/2002/11/2024 COMPL ETE BLOOD COUNT neutrophil,a bsolute 7.2 10*3/ uL 1.6-8. 4 normal Not Available [facility] [address] [place] [address], [address], 02/11/2024 20:50:01 02/11/20 24 02/11/2024 COMPL ETE BLOOD COUNT lymphocyte,a bsolute 5.4 10*3/ uL 0.4-5. 1 high Not Available [facility] [address] [place] [address], [address], 02/11/2024 20:50:01 02/11/2002/11/2024 COMPL ETE BLOOD COUNT monocyte,abs olute 1.2 10*3/ uL 0.0-1. 2 normal Not Available [facility] [address] [place] [address], [address], 02/11/2024 20:50:01 02/11/20 24 02/11/2024 COMPL ETE BLOOD COUNT eosinophil,a bsolute 0.2 10*3/ uL 0.0-0. 8 normal Not Available [facility] [address] [place] [address], [address], 02/11/2024 20:50:01 02/11/20 24 02/11/2024 COMPL ETE BLOOD COUNT basophil,abs olute 0.4 10*3/ uL 0.0-0. 3 high Not Available [facility] [address] [place] [address], [address], 02/11/2024 20:50:01 02/11/20 24 02/11/2024 COMPL ETE BLOOD COUNT % neutrophils 49.9 % 42.0-7 8.0 normal Not Available [facility] [address] [place] [address], [address], 02/11/2024 20:50:01 02/11/20 24 02/11/2024 COMPL ETE BLOOD COUNT % lymphocytes 37.3 % 11.0-4 7.0 normal Not Available [facility] [address] [place], [address], 02/11/2024 20:50:01 02/11/20 24 02/11/2024 COMPL ETE BLOOD COUNT % monocytes 8.5 % 0.0-11 .0 normal Not Available [facility] [address] [place] [address], [address], 02/11/2024 20:50:01 02/11/20 24 02/11/2024 COMPL ETE BLOOD COUNT % eosinophils 1.4 % 0.0-7. 0 normal Not Available [facility] [address] [place] [address], [address], 02/11/2024 20:50:01 02/11/20 24 02/11/2024 COMPL ETE BLOOD COUNT % basophils 2.9 % 0.0-3. 0 normal Not Available [facility] [address] [place] [address], [address], 02/11/2024 20:50:01 02/11/20 24 02/11/2024 COMPL ETE BLOOD COUNT nucleated red cells 0.1 % 0.0-0. 9 normal Not Available [facility] [address] [place] [address], [address], 02/11/2024 20:50:01 02/11/20 24 02/11/2024 COMPL ETE BLOOD COUNT nucleated RBCs, absolute 0.02 10*3/ uL not estab. normal Not Available [facility] [address] [place] [address], [address], 02/11/2024 20:50:01 02/22/20 24 02/19/2024 XR, chest [...] Recorded Time High glucose level in blood 834086289 Active 2020 Not Available [facility] 3 06:18:45 Depressive disorder 84836661 Active 2023 BRIAN DE, DO [address] [place], [address] , [facility] 4 11:08:24 Anxiety 65179079 Active 2023 BRIAN DE, DO [address] [place], [address] , [facility] 4 11:08:34 Cervical lymphadenopat hy 109342297 Active 2023 BRIAN DE, DO [address] [place], [address] , [facility] 4 14:17:23 Chronic tonsillitis 59138794 Active 2023 BRIAN DE, DO [address] [place], [address] , [facility] 4 14:17:24 Problem Notes None recorded. Procedures Surgical History Date Name Laterality Status Provider Name and Address Organization Details Recorded Time procedure on spleen completed [facility] 02/17/2021 09:40:19 procedure on gallbladder completed [facility] 02/17/2021 09:40:30 endoscopic procedure on spleen completed [facility] 02/17/2021 09:40:59 procedure on appendix completed [facility] 02/17/2021 09:41:08 Imaging Results Imaging Date Name [...] Available No t Available Dexcom G7 Manager Editorial USE DIRECTED active Not Available Not Available No t Available Dexcom G7 Sensor device CHANGE SENSOR EVERY 10 DAYS active Not Available Not Available No t Available Vitals Date Recorded Body height Body mass index (BMI) Body weight Heart rate Systolic blood pressure Diastolic blood pressure Provider Name and Address Organization Details Last Updated DateTime 4 167.64 cm 33.7 kg/m2 31664.8 1 g 74 /min 126 mm[Hg] 72 mm[Hg] [facility] 4 11:48:40 Date Recorded Body height Body mass index (BMI) Body weight Heart rate Systolic blood pressure Diastolic blood pressure Provider Name and Address Organization Details Last Updated DateTime 4 167.64 cm 29.9 kg/m2 59946.5 9 g 125 /min 128 mm[Hg] 76 mm[Hg] Fanta Mace [facility] 4 14:59:13 Date Recorded Body height Body mass index (BMI) Body weight Heart rate Oxygen saturation Oxygen saturation in Arterial blood by Pulse oximetry Systolic blood pressure Diastolic blood pressure Provider Name and Address Organization Details Last Updated DateTime 4 167.64 cm 28.8 kg/m2 60674.2 4 g 114 /min 97 % 97 % 122 mm[Hg] 72 mm[Hg] [facility] 4 11:02:16 Date Recorded Body height Body mass index (BMI) Body weight Heart rate Oxygen saturation Oxygen saturation in Arterial blood by Pulse oximetry Body temperature Systolic blood pressure Diastolic blood pressure Provider Name and Address Organization Details Last Updated DateTime 4 167.64 cm 28.4 kg/m2 71371.6 6 g 103 /min 96 % 96 % 98.7 [degF] 116 mm[Hg] 70 mm[Hg] [facility] 4 11:04:27 Date Recorded Body height Body mass index (BMI) Body weight Heart rate Oxygen saturation Oxygen saturation in Arterial blood by Pulse oximetry Systolic blood pressure Diastolic blood pressure Provider Name and Address Organization Details Last Updated DateTime 4 167.64 cm 28.1 kg/m2 63563.1 7 g 97 /min 95 % 95 % 112 mm[Hg] 72 mm[Hg] [facility] 4 13:59:22 Social History Question Answer Notes LastModified by Organizat ion Details LastModified Time Tobacco Smoking Status [facility]/17/[facility]21 09:40:01 What Is Your Level Of Alcohol Consumption? None Information not available 02/17/2021 What Is Your Level Of Caffeine Consumption? Moderate [email or web address] Information not available 02/17/2021 What Was The Date Of Your Most Recent Tobacco Screening? 09/22/2021 [email or web address] Information not available 09/22/2021 Do You Use Any Illicit Or Recreational Drugs? No [email or web address] Information not available 02/17/2021 Has Tobacco Cessation Counseling Been Provided? No [email or web address] Information not available 02/17/2021 Do You Or [...] virus, quadrivalent, preservative 03/09/2022 completed [facility] 01/09/2024 14:56:25 Influenza, recombinant, quadrivalent, PF 02/15/2020 completed [facility] Rod[facility] 01/09/2024 14:56:25 Influenza, live, trivalent, intranasal 01/27/2013 completed Honey Rodri [facility] 01/09/2024 14:56:25 Tdap 08/28/2017 completed Honey Rodri [facility] 01/09/2024 14:56:25 Pneumococcal conjugate PCV 13 09/04/2017 completed Honey Rodri [facility] 01/09/2024 14:56:25 meningococcal MCV4P 08/22/2017 completed Honey Ri ck [facility] 01/09/2024 14:56:25 Influenza, split virus, quadrivalent, PF 12/31/2013 completed Honey Rodri [facility] 01/09/2024 14:56:25 Influenza, split virus, quadrivalent, PF 02/02/2019 completed Honey Rodri [facility] 01/09/2024 14:56:25 COVID-19, mRNA, LNP-S, PF, 100 mcg/0.5mL dose or 50 mcg/0.25mL dose 05/14/2020 completed Honey Rodri [facility] 01/09/2024 14:56:25 COVID-19, mRNA, LNP-S, PF, 100 mcg/0.5mL dose or 50 mcg/0.25mL dose 07/09/2020 completed [facility] 01/09/2024 14:56:25 Past Encounters Encounter ID Performer Location Encounter Start Date Encounter Closed Date Diagnosis/Indication Diagnosis SNOMED-CT Code Diagnosis ICD10 Code [id number] [place] [address] [place] [id number] 02/17/2021 09:28:09 02/18/2021 15:33:16 Uncontrolled type 2 diabetes mellitus 474961834 E11.65 Hyperlipidemia 80897573 E78.5 Peripheral neuropathy due to type 2 diabetes mellitus 9029292821 107 E11.42 [id number] BOWEN PINZON DO [facility] [address] [place] [address] 03/10/2021 10:09:31 03/16/2021 16:00:54 Uncontrolled type 2 diabetes mellitus [id number] E11.65 [id number] BOWEN PINZON [facility] [address] [place] [address] 04/28/2021 08:49:23 04/28/2021 12:28:06 Uncontrolled type 2 diabetes mellitus 973631471 E11.65 Mixed hyperlipidemia 267 151290 E78.2 Peripheral neuropathy due to type 2 diabetes mellitus 4836556022 107 E11.42 [id number] BOWEN PINZON DO [facility] [place] [address] [place] [id number] 08/25/2021 09:55:13 08/25/2021 10:51:50 Uncontrolled type 2 diabetes mellitus 665073671 E11.65 Hypertriglyceridemia 302 593625 E78.2 Diabetic p eripheral neuropathy 697644568 E11.40 [id number] BOWEN PINZON DO [facility] [address] [place] [id number] 09/22/2021 09:28:49 09/22/2021 10:08:36 Uncontrolled type 2 diabetes mellitus 271741546 E11.65 [id number] BOWEN PINZON DO [facility] [address] [place] [id number] 03/20/2022 10:23:58 03/20/2022 11:14:35 Uncontrolled type 2 diabetes mellitus [id number] E11.65 Mixed hyperlipidemia 267 625500 E78.2 [id number] ERIC PRECIADO APRN [address] [place] [address] 08/02/2022 09:09:42 08/02/2022 09:57:46 Uncontrolled type 2 diabetes mellitus [id number] E11.65 Mixed hyperlipidemia 267 304977 E78.2 Peripheral neuropathy due to type 2 diabetes mellitus 4750000343 107 E11.42 [id number] ERIC PRECIADO APRN [address] [place] [address] 06/27/2023 11:35:01 06/27/2023 12:45:31 Uncontrolled type 2 diabetes mellitus 724384001 E11.65 Mixed hyperlipidemia 267 882199 E78.2 Peripheral neuropathy due to type 2 diabetes mellitus 4525173157 107 E11.42 Hypoglycem ia due to type 2 diabetes mellitus [id number] 31607 E11.649 Hypertriglyceridemia 302 944376 E78.1 [id number] ERIC PRECIADO APRN [address] [place] [address] 01/09/2024 14:50:09 01/09/2024 15:30:56 Uncontrolled type 2 diabetes mellitus 265696375 E11.65 Mixed hyperlipidemia 267 348544 E78.2 Peripheral neuropathy due to type 2 diabetes mellitus 6925576230 107 E11.42 Hypoglycem ia due to type 2 diabetes mellitus 9910923673 73417 E11.649 Hypertriglyceridemia 302 251024 E78.1 [id number] BRIAN DE, DO PRIMARY [facility] [address] [place] [address] 02/11/2024 10:29:20 02/11/2024 11:25:08 History of splenectomy [id number] Z90.81 Uncontroll ed type 2 diabetes mellitus 835324306 E11.65 Anxiety 09833788 F41.9 Depressive disorder 3548 9007 F32.A Chronic tonsillitis 9097 9004 J35.01 Polyneuropathy 34258721 G62.9 Illness 06691344 R69 [id number] BRIAN DE, DO [facility]IMARY [facility] [address] [place] [address] 03/07/2024 10:53:49 03/07/2024 12:09:21 Chronic tonsillitis 70199032 J35.01 Cervical lymphadenopathy 143309962 R59.0 Uncontroll ed type 2 diabetes mellitus 534108620 E11.65 Abnormal weight loss 267 778093 R63.4 [id number] BRIAN MORALES LL, DO PRIMARY CARE [facility] [address] [facility] [address] 03/24/2024 13:52:01 03/24/2024 14:29:03 Chronic tonsillitis 19783069 J35.01 Cervical lymphadenopathy 642965379 R59.0 Uncontroll ed type 2 diabetes mellitus 274389923 E11.65 Recurrent major depression 12003273 F33.9 Health Concerns Section Related Observation LastModified by Organization Detai ls LastModified Time None Recorded Concern Status LastModified by Organization Details LastModified Time None Recorded Advance Directives Directive None Recorded Payers Encounter Date Sequence Insurance Name Policy Number Policy Mccarty Covered Member ID Mccarty Member ID Guarantor Name 06/27/2023 1 [place] [id number] Lamine L Garcia [id number] Olya R Garcia 01/09/2024 1 [place] [id number] Lamine L Garcia [id number] Olya R Garcia 02/11/2024 1 [place] [id number] Lamine L Garcia [id number] Olya R Garcia 03/07/2024 1 [place] [id number] Lamine L Garcia [id number] Olya R Garcia 03/24/2024 1 [place] [id number] Lamine L Garcia [id number] Olya R Garcia Notes Date Note [...] {{Yes* No}}Hyperlipid emia: {{Yes* No}} ERIC PRECIADO, [employer] CLERK [address], [place], [address], [facility] 06/27/2023 13:41:49 01/09/2024 text/html This is a [...] (only taking sliding scale currently d/t limited diet)[id number] 2=[id number] =[id number] 10mg qwk No recent episodes of [...] on: {{Yes* No}}Hyperlipid emia: {{Yes* No}} ERIC PRECIADO APRN [address] [place], [address], [facility] 01/09/2024 16:02:55 02/11/2024 text/html Patient is 43-year-old female here for new patient evaluation. She has poorly controlled diabetes, is on Mounjaro, basal bolus insulin, managed by oral surgery technician, last A1c was pretty high. She has [...] tonsils taken out or not Works at [employer].. no smoke.no alcohol BRIAN HOYT, [address] [place], [address], [facility] 02/11/2024 12:49:37 03/07/2024 text/html Patient is 43-year-old [...] feels dehydrated BRIAN HOYT, DO [address] [place], [address], [facility] 03/07/2024 12:56:05 03/24/2024 text/html Patient is 43-year-old [...] difficult to manage BRIAN HOYT, [address] [place], [address], [facility] 03/24/2024 17:41:25 OBGyn Episode No OBEpisode recorded.
--- OUTSIDE RECORDS SUMMARY | 2024-04-07 07:13 | XMS_ITS | Encounter Summary ---
[facility] [address] [place] [address] Care Team Providers Care Genetic Technologist Name Role Phone Unavailable Primary Care Provider Unavailabl e Encounter Details Date Type Department Care Team (Late st Contact Info) Description 01/29/2014 11:11 AM EDT - 01/29/2014 11:59 PM EDT Hospital Encounter [facility] [address] [facility] [address] [place] [address] Riky Hart MD [address] [facility] [address] [place] [address] Social History Tobacco Use Types Packs/Day Years [...] (01/29/2014 11:13 AM EDT) Estradiol 84 pg/mL [facility] Comment: DF by IF @ 01/29/2014 12:41 Males: ?0.0-52.0 pg/mL Adult Female: ?Follicular Phase ? 11.0-165.0 pg/mL ?Midcycle ?146.0-526.0 pg/mL ?Luteal Phase ? 33.0-196.0 pg/mL ?Postmenopausal ?ND-37.0 pg/mL Blood specimen (specimen) 01/29/2014 11:13 AM EDT Narrative [facility] - 01/29/2014 12:41 PM EDT Specimen Type: Blood us Riky Hart MD LAB BLOOD ORDERABLES Final Resul t [facility] [address] [place] [id number], documented in this encounter Visit Diagnoses Not on filedocumented in this encounter
--- OUTSIDE RECORDS SUMMARY | 2024-04-07 07:13 | XMS_ITS | Encounter Summary ---
[facility] [address] [place] [address] Care Team Providers Care [employer] Sergeant Name Role Phone Unavailable Primary Care Provider Unavailabl e Encounter Details Date Type Department Care Team (Late st Contact Info) Description 02/03/2014 11:19 AM EDT - 02/03/2014 11:59 PM EDT Hospital Encounter [facility] [address] [facility] [address] [place] [address] Riky Hart MD [address] [facility] [address] [place] [address] Social History Tobacco Use Types Packs/Day Years [...] (02/03/2014 11:21 AM EDT) Estradiol 244 pg/mL [facility] Comment: DF by IF @ 02/03/2014 12:36 Males: ?0.0-52.0 pg/mL Adult Female: ?Follicular Phase ? 11.0-165.0 pg/mL ?Midcycle ?146.0-526.0 pg/mL ?Luteal Phase ? 33.0-196.0 pg/mL ?Postmenopausal ?ND-37.0 pg/mL Blood specimen (specimen) 02/03/2014 11:21 AM EDT Narrative [facility] - 02/03/2014 12:36 PM EDT Specimen Type: Blood us Riky Hart MD LAB BLOOD ORDERABLES Final Resul t [facility] [address] [place] [id number], documented in this encounter Visit Diagnoses Not on filedocumented in this encounter
[2024-04-07] MEDS: LACTATED RINGERS 1000ML 1,000 ML 25 ML IV (07:59)
[2024-04-07 08:00] LABS: Urine Pregnancy, HCG Qual. Negative (Negative)
--- NOTE | 2024-04-07 08:20 | P.PNANES_ITS ---
[facility] Disclaimer: The information contained in this section may have been updated after the patient was seen, as this information can be updated by other users. Medical History Tachycardia Lymphadenopathy Pneumonia Strep throat COVID-19 Bacteremia Asplenia Fever Acute hypokalemia Cough Acute viral syndrome General weakness Leukocytosis COVID-19 Hypertension Gastroenteritis Acute viral syndrome Grief Depression Migraine Diabetes mellitus, type 2 Hyperlipidemia Generalized anxiety disorder Type 2 diabetes mellitus Diabetes mellitus Surgical History H/O lysis of adhesions History of splenectomy History of cholecystectomy History of appendectomy Family History Mother FHx: mental illness depression Father Diabetes Grandfather Diabetes Grandmother Cancer basal cell lung cancer Social History Smoking Status: Unknown if ever smoked second hand exposure: No alcohol intake: never substance use type: denies use current occupational status: employed and other details: she is in the process of getting a job; she is interviewing Travel in the last 8 weeks: None adopted: No caregiver/support person: Yes (she takes care of her grand-daughter) foster care: No household members: spouse housing: house marital status: number of children: 1 number of grandchildren: 1 education level: high school service: No prison: No 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 current occupational exposures/hazards: No Hx Recent Travel: No sexually active: Yes caffeine: Yes physical activity: none working smoke detector in home: Yes fire extinguisher in home: Yes carbon monox detector in home: No firearms in home: Yes firearms unloaded and locked: Yes do you feel safe at home: Yes victim of physical abuse: No victim of emotional abuse: No victim of sexual abuse: No [facility] Anesthesia Checklist Patient Identification Patient Identification: Arm Band, Family and Verbal (Name & ) Structural Data Admitted From: Home Planned Operative Procedure/s: T&A Consent for Planned Operative Procedure(s) Verified: Yes Verified Documents: Surgical Consent and History and Physical NPO Status Verified Time NPO: 22:30 Chart Verification Results Verified: CBC, BMP, ECG, Chest Xray and HCG Additional verifications Fingerstick Blood Glucose: 183 Patient : No Anesthesia Reactions: No Hx Blood Transfusions: No Blood Transfusion Reaction: Yes Cardiovascular Assessment Heart Sounds: S1 & S2 Pulse Rhythm: Irregular Peripheral Edema: No Airway Assessment Mallampati Score:: Class II C-Spine Mobility Assessed: Yes (FROM demonstrated) TMJ Mobility Assessed: Yes Dentition: Good Dentition (Nothing loose per pt.) Neurological Assessment Level of Consciousness: Awake, Alert, Appropriate and Follows Commands Hx Seizures: No Numbness or tingling in extremities: No Anesthesia Plan Anesthesia Risk discussed: Yes Anesthesia Plan: Verified ASA Class: III Anesthesia Type: General
[2024-04-07] MEDS: BUPIVACAINE 0.5% W/EPI 1:200,000 30ML VIAL 30 ML IJ (08:52)
--- NOTE | 2024-04-07 09:15 | P.OP_ITS ---
Date of procedure: 04/07/24 Pre-op Diagnosis:: Chronic tonsillitis Post-op Diagnosis:: same Procedure performed:: Tonsillectomy Surgeon:: Fantasma Madden III, MD Recreational Vehicle Repairer(s):: none TELEPHONE REPAIRER:: Jyothi Jaramillo Anesthesia: GETA Estimated blood loss (mL): 20 Operative findings:: Chronically inflamed tonsil Operative note:: The patient was brought to the operating room placed under general endotracheal anesthesia with IV sedation. They were then placed in the Tasneem position and a McIvor mouthgag was used to better expose the oral cavity and oropharynx. The soft palate was palpated and noted to be intact through all planes. The adenoid pad was inspected and noted to be nonobstructing. The right tonsil was then dissected from its underlying fascial and muscular attachments using electrocautery dissection. Any bleeding spots were spot coagulated. A similar procedure was performed on the left side with similar results. The wound was then irrigated with sterile water solution. After observation and no evidence of further bleeding, I injected half percent Marcaine with epinephrine into the tonsillar fossae approximately 3 ccs were used. The patient stomach contents were aspirated clear. She was awakened in the operating room taken recovery room in good condition. Condition: stable Disposition: PACU Complications:: None
--- NOTE | 2024-04-07 09:25 | P.PNANES_ITS ---
[facility] Anesthesia Record Part I Anesthesia Record I Intake, IV Amount: 200 Hydration: Adequate Estimated blood loss (mL): 40 Urine output (mL): 0 Blood Pressure: 127/84 SaO2: 97 Pulse Rate: 116 Airway Patency: Patent Respiratory Rate: 22 Temperature: 97.2 F Patient is:: Awake Stable to PACU at:: 09:22
[2024-04-07] MEDS: PROMETHAZINE HCL 25MG/ML 1ML VIAL 6.25 MG IV (09:40)
[2024-04-07] MEDS: MORPHINE 2MG/ML SYRINGE 2 MG IV (09:45)
[2024-04-08 08:41] LABS: POC Glucose,Bedside 188 (70-110)
== END 2024-04-07 10:26 | disposition home or self-care (01) ==
PROVIDERS: PCP Internal Medicine; Visit Provider Otolaryngology
PROC: (CPT 42826; principal; 2024-04-07 08:45)
DX: J35.01 Chronic tonsillitis (principal)
CPT/HCPCS: 42826; 81025; 82962; J3490; J1100; J2250; J2270; J2405; J2550; J3010; J7120

== ENCOUNTER 2024-04-09 18:58 | Inpatient (IN) | payer BC, SELFPAY ==
[2024-04-09] VITALS (10 sets, daily range): BP systolic 120–157; BP diastolic 63–103; PULSE 58–115; RESP 13–20; TEMP 37.1; O2SAT 94–98; BMI 27.9
--- NOTE | 2024-04-09 19:01 | ED_ITS ---
Discharge Plan Disposition Patient Disposition: Admitted Condition: Fair Chief Complaint: PAIN Clinical Impressions Clinical Impression: Supraglottitis Discharge ED Provider: Wayne Flower General Adult HPI <Golden Benavides MD - Last Filed: 04/09/24 23:51> General Chief complaint: PAIN Stated complaint: sore throat soa unable to eat Time Seen by Provider: 04/09/24 19:01 History of Present Illness HPI narrative: Patient presents for evaluation of sore throat, neck pain, difficulty tolerating p.o. intake, gradual in onset over the past 24 hours, constant, worsening, associated symptoms include choking and medications she was prescribed post tonsillectomy coming out of her nose. She is status post tonsillectomy at this facility within the past 24 hours. No fevers or chills. No reported shortness of air however she has experienced voice changes. No trauma to the area. No pain elsewhere. Please note that above description of symptoms, in this electronic medical record under categorization of recalled from ER triage doctor by RN are reflective of an initial nursing assessment, however, is not reflective of my full history and physical exam that was personally taken and clarified. Consequentially, this preceding description of symptoms, which may include the patient's categorized chief complaint in the EMR, do not reflect my personal clinical impression, and the ultimate description of history of present illness and patient stated complaints should be deferred to this section of the note. Unless stated otherwise or congruent with this section of the note, additional signs, symptoms, or incongruence should be interpreted as inaccurate with my clinical impression. Related Data Home Medications ?Medication ?Instructions ?Recorded ?Confirmed bisoprolol fumarate 10 mg tablet 10 mg PO DAILY 10/02/20 04/07/24 fenofibrate 160 mg tablet 160 mg PO DAILY 01/16/22 04/07/24 cholecalciferol (vitamin D3) 125 125 mcg PO DAILY 02/08/23 04/07/24 mcg (5,000 unit) tablet (Vitamin D3) ferrous sulfate 325 mg (65 mg 325 mg PO Q48H 02/08/23 04/07/24 iron) tablet (FeroSul) gabapentin 300 mg capsule 300 mg PO BIDP PRN Neuropathic Pain 03/05/23 04/07/24 rosuvastatin 20 mg tablet 20 mg PO DAILY 06/06/23 04/07/24 albuterol sulfate 90 mcg/actuation 2 puff inhalation Q4HP PRN 12/19/23 04/07/24 aerosol inhaler Shortness Of Breath insulin glargine U-300 conc 300 10 unit SQ HS 12/19/23 04/07/24 unit/mL (3 mL) subcutaneous pen (Toujeo Max U-300 SoloStar) insulin lispro 100 unit/mL 10 unit SQ TID 12/19/23 04/07/24 subcutaneous pen (Humalog KwikPen (U-100) Insulin) tirzepatide 10 mg/0.5 mL 10 mg SQ WEEKLY 12/19/23 04/07/24 subcutaneous pen injector (Mounjaro) triamterene 37.5 1 tab PO DAILYP PRN Edema 12/19/23 04/07/24 mg-hydrochlorothiazide 25 mg tablet pen needle, diabetic 32 gauge x #1,200 ea 02/11/24 04/07/24 (BD Kim 2nd Gen Pen Needle) Previous Rx's ?Medication ?Instructions ?Recorded desvenlafaxine succinate 100 mg 100 mg PO DAILY #90 tabs 03/24/24 tablet,extended release 24 hr (Pristiq) dextromethorphan IR 45 1 tab PO BID 90 days #180 ea 03/24/24 mg-bupropion ER 105 mg biphasic tablet (Auvelity) diazepam 10 mg tablet (Valium) 10 mg PO BIDP PRN anxiety #60 tabs 03/24/24 Tetracaine Lollipops (0.5%) 1 ea 1 ea PO DIRECTED #3 ea 04/07/24 lozenge on a handle hydrocodone 7.5 mg-acetaminophen 15 ml PO Q4H PRN pain #200 mL 04/07/24 325 mg/15 mL oral solution hydrocodone 7.5 mg-acetaminophen 15 ml PO Q4H PRN pain #200 mL 04/07/24 325 mg/15 mL oral solution ondansetron 4 mg disintegrating 4 mg PO Q4H PRN nausea and 04/07/24 tablet vomiting #10 tabs Allergies Allergy/AdvReac Type Severity Reaction Status Date / Time No Known Allergies Allergy Verified 04/07/24 08:00 [facility] <Golden Benavides MD - Last Filed: 04/09/24 23:51> [facility] Disclaimer: The information contained in this section may have been updated after the patient was seen, as this information can be updated by other users. Medical History (Updated 04/10/24 @ 02:01 by Wayne Flower MD) Tachycardia Lymphadenopathy Pneumonia Strep throat COVID-19 Bacteremia Asplenia Fever Acute hypokalemia Cough Acute viral syndrome General weakness Leukocytosis COVID-19 Hypertension Gastroenteritis Acute viral syndrome Grief Depression Migraine Diabetes mellitus, type 2 Hyperlipidemia Generalized anxiety disorder Type 2 diabetes mellitus Diabetes mellitus Surgical History H/O lysis of adhesions History of splenectomy History of cholecystectomy History of appendectomy Family History Mother FHx: mental illness depression Father Diabetes Grandfather Diabetes Grandmother Cancer basal cell lung cancer Social History Smoking Status: Never smoker second hand exposure: No alcohol intake: never substance use type: denies use current occupational status: employed and other details: she is in the process of getting a job; she is interviewing Travel in the last 8 weeks: None adopted: No caregiver/support person: Yes (she takes care of her grand-daughter) foster care: No household members: spouse housing: house marital status: number of children: 1 number of grandchildren: 1 education level: high school service: No senior care: No 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 current occupational exposures/hazards: No Hx Recent Travel: No sexually active: Yes caffeine: Yes physical activity: none working smoke detector in home: Yes fire extinguisher in home: Yes carbon monox detector in home: No firearms in home: Yes firearms unloaded and locked: Yes do you feel safe at home: Yes victim of physical abuse: No victim of emotional abuse: No victim of sexual abuse: No Other Medical History Have you received the Flu Vaccine for this season: No Have you received the Pneumonia Vaccine: No <Golden Benavides MD - Last Filed: 04/09/24 23:51> ROS Obtained: Yes other As per HPI Physical Exam <Golden Benavides MD - Last Filed: 04/09/24 23:51> General General appearance: alert and in no apparent distress Head Head exam: atraumatic and normocephalic Eye Eye exam: Present normal appearance Neck Neck exam: Present normal inspection Chest Chest inspection: Present normal inspection and symmetric chest wall rise Respiratory Respiratory exam: Present normal lung sounds bilaterally; Absent respiratory distress Cardiovascular Cardiovascular exam: Present regular rate and normal rhythm Abdominal Exam Abdominal exam: Present soft Neurological Exam Neurological exam: Present alert and oriented X3 Psychiatric Psychiatric exam: Present normal affect and normal mood Skin Skin exam: Present warm and dry Other Other exam information: No stridor however hoarseness, trismus, bilateral tonsillar area with erythema, bilateral exudates, tenderness to palpation over anterior cervical area, no submandibular induration. No palpable crepitus, mucous membranes dry Medical Decision Making <Golden Benavides MD - Last Filed: 04/09/24 23:51> Medical Records Medical records reviewed: Yes I reviewed the patient's medical records. Screening: Per USPSTF and CDC recommendations, given the prevalence of disease in our region, it is our hospital?s policy to screen for HIV and viral Hepatitis for all patients aged 18 and over and those with ongoing risk factors. Solo Inquiry Pt receiving controlled substance: No Vital Signs: 04/09/24 19:01 04/09/24 19:15 04/09/24 19:30 Temperature 98.8 F Temperature Source Oral Pulse Rate 93 H 115 H Pulse Rate [Right] 107 H Respiratory Rate 20 14 14 Blood Pressure 146/103 H 145/88 H Blood Pressure [Right Arm] 146/103 H Blood Pressure Mean [Right Arm] 117 Blood Pressure Source Blood Pressure Position 02 Sat by Pulse Oximetry 98 95 97 Oxygen Delivery Method Room Air 04/09/24 20:00 04/09/24 21:15 04/09/24 21:30 Temperature Temperature Source Pulse Rate 99 H Pulse Rate [Right] Respiratory Rate 20 19 13 Blood Pressure 140/96 H 157/82 H 133/87 Blood Pressure [Right Arm] Blood Pressure Mean [Right Arm] Blood Pressure Source Blood Pressure Position 02 Sat by Pulse Oximetry 94 L Oxygen Delivery Method 04/09/24 22:00 04/09/24 22:30 04/09/24 23:01 Temperature Temperature Source Pulse Rate 69 58 L 77 Pulse Rate [Right] Respiratory Rate 16 13 13 Blood Pressure 130/78 128/90 124/97 H Blood Pressure [Right Arm] Blood Pressure Mean [Right Arm] Blood Pressure Source Blood Pressure Position 02 Sat by Pulse Oximetry 97 95 96 Oxygen Delivery Method 04/09/24 23:30 04/10/24 00:00 04/10/24 00:31 Temperature Temperature Source Pulse Rate 66 84 86 Pulse Rate [Right] Respiratory Rate 14 13 13 Blood Pressure 120/63 130/77 142/62 H Blood Pressure [Right Arm] Blood Pressure Mean [Right Arm] Blood Pressure Source Blood Pressure Position 02 Sat by Pulse Oximetry 98 92 L 99 Oxygen Delivery Method 04/10/24 01:00 04/10/24 01:27 Temperature 97.9 F Temperature Source Oral Pulse Rate 101 H 84 Pulse Rate [Right] Respiratory Rate 12 12 Blood Pressure 115/72 115/72 Blood Pressure [Right Arm] Blood Pressure Mean [Right Arm] Blood Pressure Source Automatic Cuff Blood Pressure Position Supine 02 Sat by Pulse Oximetry 100 Oxygen Delivery Method Room Air Lab Data Lab Results 04/09/24 19:40: WBC 17.5 H, RBC 4.84, Hgb 14.9, Hct 45.3, MCV 93.7, MCH 30.9, MCHC 33.0, RDW 15.0, Plt Count 527 H, MPV 7.9, Neut % (Auto) 59.4, Lymph % (Auto) 26.9, [place] % (Auto) 11.4 H, Eos % (Auto) 1.3, Baso % (Auto) 1.0, Neut # (Auto) 10.4 H, Lymph # (Auto) 4.7 H, [place] # (Auto) 2.0 H, Eos # (Auto) 0.2, Baso # (Auto) 0.2, Total Counted 100, Neutrophils % (Manual) 54, Lymphocytes % (Manual) 38, Monocytes % (Manual) 8, Platelet Estimate Normal, RBC Morphology Normal, Sodium 139, Potassium 3.3 L, Chloride 104, Carbon Dioxide 29, Anion Gap 9.3, BUN 15, Creatinine 0.60, Estimated Creat Clear 148, Estimated GFR 109, Est GFR ( Amer) 131, Glucose 129 H, Calcium 9.3, Magnesium 1.8, Total Bilirubin 0.7, AST 37 H, ALT 20, Alkaline Phosphatase 122, Total Protein 7.8, Albumin 4.2, Globulin 3.6 H, Albumin/Globulin Ratio 1.2, Serum HCG, Qual Negative 04/09/24 21:17: PT 10.3, INR 0.91 04/09/24 19:40 04/09/24 19:40 Orders (Tests/Meds): ED MEDICATIONS Generic Name Dose Route Start Last Admin Trade Name Freq PRN Reason Stop Dose Admin Acetaminophen 650 mg 04/10/24 01:30 Acetaminophen 325mg Tab PO 05/10/24 01:29 Q4HP PRN Fever or Mild Pain (1-3) Al Hydrox/Mg Hydrox/Simethicone 30 ml 04/10/24 01:30 Aluminum/Magnesium/Simethicone 30ml Udc PO 05/10/24 01:29 QIDP PRN Dyspepsia Dexamethasone Sodium Phosphate 10 mg 04/10/24 00:42 04/10/24 00:50 Dexamethasone 4mg/Ml 1ml Vial IV 04/10/24 00:43 10 mg ONCE ONE Administration Dexamethasone Sodium Phosphate 10 mg 04/10/24 07:00 Dexamethasone 4mg/Ml 5ml Mdv IV 04/12/24 06:59 Q8 [facility] Diphenhydramine HCl 50 mg 04/10/24 01:23 Diphenhydramine 50mg/Ml Vial IV 04/10/24 01:24 ONCE ONE Enoxaparin Sodium 40 mg 04/10/24 09:00 Enoxaparin 40mg/0.4ml Syringe SUBCUT 05/10/24 08:59 DAILY [facility] Famotidine 20 mg 04/10/24 01:25 Famotidine 20mg/2ml Vial IV 05/10/24 01:24 BID [facility] Sodium Chloride 1,000 mls @ 150 mls/hr 04/10/24 01:30 Sod Chlor 0.9% 1000ml Bag IV 04/13/24 01:29 .Q6H40M [facility] Ampicillin Sodium/Sulbactam 100 mls @ 200 mls/hr 04/10/24 01:45 Sodium 3 gm/ Sodium Chloride IV 04/17/24 01:44 Q6H [facility] Insulin Human Lispro 0 unit 04/10/24 06:00 Humalog 100 Units/Ml 10ml Vial (Ssi) SUBCUT 05/10/24 05:59 ACHS [facility] Protocol Ketorolac Tromethamine 30 mg 04/10/24 00:42 04/10/24 00:50 Ketorolac 30mg/Ml Vial IV 04/10/24 00:43 30 mg ONCE ONE Administration Morphine Sulfate 2 mg 04/10/24 01:30 Morphine 2mg/Ml Syringe IV 05/10/24 01:29 Q2HP PRN Moderate Pain (4-6) Morphine Sulfate 4 mg 04/10/24 01:30 Morphine 4mg/Ml Syringe IV 05/10/24 01:29 Q4HP PRN Severe Pain (7-10) Ondansetron HCl 4 mg 04/10/24 01:30 Ondansetron 4mg/2ml Vial IV 05/10/24 01:29 Q8HP PRN Nausea Sodium Chloride 8 ml 04/10/24 01:23 Sodium Chloride 0.9% 10ml Vial IV 05/10/24 01:22 NEEDED PRN dilute famotidine Discontinued Medications Generic Name Dose Route Start Last Admin Trade Name Freq PRN Reason Stop Dose Admin Hydromorphone HCl 0.5 mg 04/09/24 21:17 04/09/24 21:32 Hydromorphone 4 Mg/Ml Syringe IV 04/09/24 21:18 Not Given ONCE ONE Hydromorphone HCl 0.5 mg 04/09/24 21:30 04/09/24 21:34 Hydromorphone 2mg/Ml Syringe IV 04/09/24 21:31 0.5 mg ONCE ONE Administration Lactated Ringer's 1,000 mls @ 999 mls/hr 04/09/24 19:11 04/09/24 19:33 Lactated Ringer's 1000 Ml Bag IV 04/09/24 20:11 999 mls/hr .Q1H1M ONE Administration Ampicillin Sodium/Sulbactam 100 mls @ 200 mls/hr 04/09/24 22:09 04/09/24 22:43 Sodium 3 gm/ Sodium Chloride IV 04/09/24 22:10 200 mls/hr ONCE ONE Administration Lactated Ringer's 1,000 mls @ 999 mls/hr 04/10/24 00:15 04/10/24 00:14 Lactated Ringer's 1000 Ml Bag IV 04/10/24 01:15 999 mls/hr .Q1H1M [facility] Administration Iopamidol 75 ml 04/09/24 21:45 04/09/24 21:46 Iopamidol-370 (76%);100ml Bottle IV 04/09/24 21:46 75 ml ONCE ONE Administration Morphine Sulfate 4 mg 04/09/24 19:11 04/09/24 19:33 Morphine 4mg/Ml Syringe IV 04/09/24 19:12 4 mg ONCE ONE Administration Sodium Chloride 10 ml 04/09/24 21:45 04/09/24 21:46 Sodium Chloride 0.9% 10ml Syr (Rad Only) IV 04/09/24 21:46 10 ml ONCE ONE Administration ORDERS Category Date Time Status CT soft tissue neck wo/w con Stat Cat Scan 04/09/24 19:11 Completed CBC w/Auto Diff [Complete Blood Count Auto Diff] Stat Lab 04/09/24 19:40 Completed CMP [Comprehensive Metabolic Panel] Stat Lab 04/09/24 19:40 Completed HCG Qualitative, Serum Stat Lab 04/09/24 19:40 Completed MAG [Magnesium] Stat Lab 04/09/24 19:40 Completed PT INR [Prothrombin Time INR] Stat Lab 04/09/24 21:17 Completed Blood Culture Stat Micro 04/09/24 19:45 ORD Medical Decision Narrative: Patient with history and exam per above presenting for evaluation of post tonsillectomy sore throat Diagnoses considered include epiglottitis, submandibular abscess, bacterial tracheitis, among others ED workup and treatment included: CBC, CMP, CT soft tissue neck, LR, morphine, blood culture, mag, Dilaudid, Unasyn 3 mg x 1. Labs were independently interpreted by me, significant for leukocytosis, CT with evidence of supraglottitis per my independent review of imaging Patient with supplemental oxygen requirement, voice changes, rapid progression of symptoms that will require further evaluation at higher level of care. Patient currently being evaluated for transfer to outside facility. Care transferred to incoming physician <Wayne Flower MD - Last Filed: 04/10/24 02:01> Vital Signs: 04/09/24 19:01 04/09/24 19:15 04/09/24 19:30 Temperature 98.8 F Temperature Source Oral Pulse Rate 93 H 115 H Pulse Rate [Right] 107 H Respiratory Rate 20 14 14 Blood Pressure 146/103 H 145/88 H Blood Pressure [Right Arm] 146/103 H Blood Pressure Mean [Right Arm] 117 Blood Pressure Source Blood Pressure Position 02 Sat by Pulse Oximetry 98 95 97 Oxygen Delivery Method Room Air 04/09/24 20:00 04/09/24 21:15 04/09/24 21:30 Temperature Temperature Source Pulse Rate 99 H Pulse Rate [Right] Respiratory Rate 20 19 13 Blood Pressure 140/96 H 157/82 H 133/87 Blood Pressure [Right Arm] Blood Pressure Mean [Right Arm] Blood Pressure Source Blood Pressure Position 02 Sat by Pulse Oximetry 94 L Oxygen Delivery Method 04/09/24 22:00 04/09/24 22:30 04/09/24 23:01 Temperature Temperature Source Pulse Rate 69 58 L 77 Pulse Rate [Right] Respiratory Rate 16 13 13 Blood Pressure 130/78 128/90 124/97 H Blood Pressure [Right Arm] Blood Pressure Mean [Right Arm] Blood Pressure Source Blood Pressure Position 02 Sat by Pulse Oximetry 97 95 96 Oxygen Delivery Method 04/09/24 23:30 04/10/24 00:00 04/10/24 00:31 Temperature Temperature Source Pulse Rate 66 84 86 Pulse Rate [Right] Respiratory Rate 14 13 13 Blood Pressure 120/63 130/77 142/62 H Blood Pressure [Right Arm] Blood Pressure Mean [Right Arm] Blood Pressure Source Blood Pressure Position 02 Sat by Pulse Oximetry 98 92 L 99 Oxygen Delivery Method 04/10/24 01:00 04/10/24 01:27 Temperature 97.9 F Temperature Source Oral Pulse Rate 101 H 84 Pulse Rate [Right] Respiratory Rate 12 12 Blood Pressure 115/72 115/72 Blood Pressure [Right Arm] Blood Pressure Mean [Right Arm] Blood Pressure Source Automatic Cuff Blood Pressure Position Supine 02 Sat by Pulse Oximetry 100 Oxygen Delivery Method Room Air Lab Data Lab Results 04/09/24 19:40: WBC 17.5 H, RBC 4.84, Hgb 14.9, Hct 45.3, MCV 93.7, MCH 30.9, MCHC 33.0, RDW 15.0, Plt Count 527 H, MPV 7.9, Neut % (Auto) 59.4, Lymph % (Auto) 26.9, [place] % (Auto) 11.4 H, Eos % (Auto) 1.3, Baso % (Auto) 1.0, Neut # (Auto) 10.4 H, Lymph # (Auto) 4.7 H, [place] # (Auto) 2.0 H, Eos # (Auto) 0.2, Baso # (Auto) 0.2, Total Counted 100, Neutrophils % (Manual) 54, Lymphocytes % (Manual) 38, Monocytes % (Manual) 8, Platelet Estimate Normal, RBC Morphology Normal, Sodium 139, Potassium 3.3 L, Chloride 104, Carbon Dioxide 29, Anion Gap 9.3, BUN 15, Creatinine 0.60, Estimated Creat Clear 148, Estimated GFR 109, Est GFR ( Amer) 131, Glucose 129 H, Calcium 9.3, Magnesium 1.8, Total Bilirubin 0.7, AST 37 H, ALT 20, Alkaline Phosphatase 122, Total Protein 7.8, Albumin 4.2, Globulin 3.6 H, Albumin/Globulin Ratio 1.2, Serum HCG, Qual Negative 04/09/24 21:17: PT 10.3, INR 0.91 Orders (Tests/Meds): ED MEDICATIONS Generic Name Dose Route Start Last Admin Trade Name Freq PRN Reason Stop Dose Admin Acetaminophen 650 mg 04/10/24 01:30 Acetaminophen 325mg Tab PO 05/10/24 01:29 Q4HP PRN Fever or Mild Pain (1-3) Al Hydrox/Mg Hydrox/Simethicone 30 ml 04/10/24 01:30 Aluminum/Magnesium/Simethicone 30ml Udc PO 05/10/24 01:29 QIDP PRN Dyspepsia Dexamethasone Sodium Phosphate 10 mg 04/10/24 00:42 04/10/24 00:50 Dexamethasone 4mg/Ml 1ml Vial IV 04/10/24 00:43 10 mg ONCE ONE Administration Dexamethasone Sodium Phosphate 10 mg 04/10/24 07:00 Dexamethasone 4mg/Ml 5ml Mdv IV 04/12/24 06:59 Q8 [facility] Diphenhydramine HCl 50 mg 04/10/24 01:23 Diphenhydramine 50mg/Ml Vial IV 04/10/24 01:24 ONCE ONE Enoxaparin Sodium 40 mg 04/10/24 09:00 Enoxaparin 40mg/0.4ml Syringe SUBCUT 05/10/24 08:59 DAILY [facility] Famotidine 20 mg 04/10/24 01:25 Famotidine 20mg/2ml Vial IV 05/10/24 01:24 BID [facility] Sodium Chloride 1,000 mls @ 150 mls/hr 04/10/24 01:30 Sod Chlor 0.9% 1000ml Bag IV 04/13/24 01:29 .Q6H40M [facility] Ampicillin Sodium/Sulbactam 100 mls @ 200 mls/hr 04/10/24 01:45 Sodium 3 gm/ Sodium Chloride IV 04/17/24 01:44 Q6H [facility] Insulin Human Lispro 0 unit 04/10/24 06:00 Humalog 100 Units/Ml 10ml Vial (Ssi) SUBCUT 05/10/24 05:59 ACHS [facility] Protocol Ketorolac Tromethamine 30 mg 04/10/24 00:42 04/10/24 00:50 Ketorolac 30mg/Ml Vial IV 04/10/24 00:43 30 mg ONCE ONE Administration Morphine Sulfate 2 mg 04/10/24 01:30 Morphine 2mg/Ml Syringe IV 05/10/24 01:29 Q2HP PRN Moderate Pain (4-6) Morphine Sulfate 4 mg 04/10/24 01:30 Morphine 4mg/Ml Syringe IV 05/10/24 01:29 Q4HP PRN Severe Pain (7-10) Ondansetron HCl 4 mg 04/10/24 01:30 Ondansetron 4mg/2ml Vial IV 05/10/24 01:29 Q8HP PRN Nausea Sodium Chloride 8 ml 04/10/24 01:23 Sodium Chloride 0.9% 10ml Vial IV 05/10/24 01:22 NEEDED PRN dilute famotidine Discontinued Medications Generic Name Dose Route Start Last Admin Trade Name Freq PRN Reason Stop Dose Admin Hydromorphone HCl 0.5 mg 04/09/24 21:17 04/09/24 21:32 Hydromorphone 4 Mg/Ml Syringe IV 04/09/24 21:18 Not Given ONCE ONE Hydromorphone HCl 0.5 mg 04/09/24 21:30 04/09/24 21:34 Hydromorphone 2mg/Ml Syringe IV 04/09/24 21:31 0.5 mg ONCE ONE Administration Lactated Ringer's 1,000 mls @ 999 mls/hr 04/09/24 19:11 04/09/24 19:33 Lactated Ringer's 1000 Ml Bag IV 04/09/24 20:11 999 mls/hr .Q1H1M ONE Administration Ampicillin Sodium/Sulbactam 100 mls @ 200 mls/hr 04/09/24 22:09 04/09/24 22:43 Sodium 3 gm/ Sodium Chloride IV 04/09/24 22:10 200 mls/hr ONCE ONE Administration Lactated Ringer's 1,000 mls @ 999 mls/hr 04/10/24 00:15 04/10/24 00:14 Lactated Ringer's 1000 Ml Bag IV 04/10/24 01:15 999 mls/hr .Q1H1M [facility] Administration Iopamidol 75 ml 04/09/24 21:45 04/09/24 21:46 Iopamidol-370 (76%);100ml Bottle IV 04/09/24 21:46 75 ml ONCE ONE Administration Morphine Sulfate 4 mg 04/09/24 19:11 04/09/24 19:33 Morphine 4mg/Ml Syringe IV 04/09/24 19:12 4 mg ONCE ONE Administration Sodium Chloride 10 ml 04/09/24 21:45 04/09/24 21:46 Sodium Chloride 0.9% 10ml Syr (Rad Only) IV 04/09/24 21:46 10 ml ONCE ONE Administration ORDERS Category Date Time Status CT soft tissue neck wo/w con Stat Cat Scan 04/09/24 19:11 Completed CBC w/Auto Diff [Complete Blood Count Auto Diff] Stat Lab 04/09/24 19:40 Completed CMP [Comprehensive Metabolic Panel] Stat Lab 04/09/24 19:40 Completed HCG Qualitative, Serum Stat Lab 04/09/24 19:40 Completed MAG [Magnesium] Stat Lab 04/09/24 19:40 Completed PT INR [Prothrombin Time INR] Stat Lab 04/09/24 21:17 Completed Blood Culture Stat Micro 04/09/24 19:45 ORD Medical Decision Narrative: Patient with history and exam per above presenting for evaluation of post tonsillectomy sore throat Diagnoses considered include epiglottitis, submandibular abscess, bacterial tracheitis, among others ED workup and treatment included: CBC, CMP, CT soft tissue neck, LR, morphine, blood culture, mag, Dilaudid, Unasyn 3 mg x 1. Labs were independently interpreted by me, significant for leukocytosis, CT with evidence of supraglottitis per my independent review of imaging Patient with supplemental oxygen requirement, voice changes, rapid progression of symptoms that will require further evaluation at higher level of care. Patient currently being evaluated for transfer to outside facility. Care transferred to incoming physician. Ching PITTS: I assumed care of the patient at the time of handoff from the prior provider. We attempted to transfer to [facility] through the patient's [facility] group but we were unsuccessful. I called and spoke with Anjana Avila APRN who works with the operating surgeon. I discussed the case with her and after discussion we think we can bring the patient in at our facility. Patient is tolerating her secretions, is not requiring oxygen after the Dilaudid wore off, and is feeling a little better after fluids. She is able to ambulate and lay down without respiratory concern. The patient is not complaining of soa, her primary complaint remains odynophagia. [facility] will come and evaluate the patient in the morning. The patient was also initiated on decadron. Interactive discussion was had with hospital called for admission. Critical Care <Golden Benavides MD - Last Filed: 04/09/24 23:51> Critical Care Time Critical Care Time: No
--- NOTE | 2024-04-09 19:11 | CT_ITS ---
PROCEDURE INFORMATION: Exam: CT Neck Without and With Contrast Exam date and time: 04/09/2024 9:39 PM Age: 43 years old Clinical indication: Neck pain and painful swallowing and throat pain; Prior surgery; Surgery date: 3-7 days post-operative; Surgery type: Tonsil; Additional info: Post tonsillectomy pain, swelling, decreased po TECHNIQUE: Imaging protocol: Computed tomography of the neck without and with contrast. Radiation optimization: All CT scans at this facility use at least one of these dose optimization techniques: automated exposure control; mA and/or kV adjustment per patient size (includes targeted exams where dose is matched to clinical indication); or iterative reconstruction. Contrast material: ISOVUE; Contrast volume: 75 ml; Contrast route: IV; COMPARISON: CT SOFT TISSUE NECK WO CON 02/25/2024 9:59 AM FINDINGS: Salivary glands: Normal. Glands are normal in size. Pharynx: Edema and hyperenhancement of the mucosa throughout the oropharynx and hypopharynx with some retained fluid/secretions identified. Edema extends within the submucosal tissues as well. Findings consistent with acute pharyngitis. Postoperative changes from tonsillectomy identified. Prevertebral and retropharyngeal spaces: Reactive edema within the retropharyngeal space but no abscess formation. Larynx: There is also edema and hyperenhancement of the mucosa within the laryngeal vestibule. Subglottic trachea normal. Thyroid: Normal. No enlarged or calcified nodules. Trachea: Visualized trachea is unremarkable. Lungs: Partially visualized lung apices demonstrates tree-in-bud ground-glass nodular type infiltrates within the right lung apex not fully evaluated on this exam. Would recommend correlation with chest x-ray or chest CT. New from most recent CT angio chest. Mediastinal space: Upper mediastinum normal. Lymph nodes: Multiple reactive lymph nodes identified within the jugular chain bilaterally. Bones/joints: Unremarkable. No acute fracture. Soft tissues: There is postoperative related soft tissue gas extending within the left lateral mid and inferior parapharyngeal space IMPRESSION: 1. Findings consistent with acute appearing pharyngitis and supraglottitis. See above discussion. Postoperative changes from palatine tonsillectomy. No abscess. 2. Partially visualized lung apices demonstrates tree-in-bud ground-glass nodular type infiltrates within the right lung apex not fully evaluated on this exam. Would recommend correlation with chest x-ray or chest CT. New from most recent CT angio chest. 3. Reactive edema within the retropharyngeal space but no abscess formation.
--- OUTSIDE RECORDS SUMMARY | 2024-04-09 19:12 | XMS_ITS | Encounter Summary ---
[facility] Address [address] [place] [address] Care Team Providers Care Lining Cleaner Name Role Phone Unavailable Primary Care Provider Unavailabl e Encounter Details Date Type Department Care Team (Late st Contact Info) Description 03/02/2014 10:43 AM EST - 03/02/2014 11:59 PM EST Hospital Encounter [facility] [address] [facility] [address] [place] [address] Riky Hart MD 1760 [facility] [address] [place] [address] Social History Tobacco Use Types Packs/Day Years [...] (03/02/2014 10:46 AM EST) Estradiol 85 pg/mL [facility] Comment: DF by IF @ 03/02/2014 15:03 Males: ?0.0-52.0 pg/mL Adult Female: ?Follicular Phase ? 11.0-165.0 pg/mL ?Midcycle ?146.0-526.0 pg/mL ?Luteal Phase ? 33.0-196.0 pg/mL ?Postmenopausal ?ND-37.0 pg/mL Blood specimen (specimen) 03/02/2014 10:46 AM EST Narrative [facility] - 03/02/2014 3:03 PM EST Specimen Type: Blood us Riky Hart MD LAB BLOOD ORDERABLES Final Resul t [facility] [address] [place] [address], documented in this encounter Visit Diagnoses Not on filedocumented in this encounter
--- OUTSIDE RECORDS SUMMARY | 2024-04-09 19:12 | XMS_ITS | Continuity of Care Document ---
Author Organization [facility] Address [address] [facility] [address] [place] [address] Care Team Providers Care Reading Instructor Name Role Phone BRIAN SAUCEDA Primary Care Provider Assessment No assessment recorded. Plan of Treatment Reminders Order Date Submit Date Provider Last Modified By Organization Details Last Modified Time Details Appointments FOLLOW UP 15 2024 02:15P Gabriella Peter MD Not available Not available Not available Lab lui-b arr virus (ebv) IgG + IgM panel, serum [email or web address] [place] [address] Lab, [address] [place], [address], 03/31/2024 15:57:51 CBC w/ auto diff 2023 024 [facility] Lab, [address] [facility], [place], [address], 03/24/2024 14:31:13 CMP, serum or plasma 2023 024 [facility] Lab, [address] [facility], [place], [address], 03/24/2024 15:12:59 bcr-abl transloca tion, PCR, blood/bon e marrow [email or web address] Lab, [address] [place], [address], 03/31/2024 09:14:22 chronic leukemia panel, flow cytometry , unspecifi ed specimen [address] Lab, [address] [place], [address], 03/31/2024 09:14:22 jak2 (V617F) mutation, blood/tis millie [address] Lab, [address] [place], [address], 03/31/2024 15:57:51 TSH, serum or plasma [address] Lab, [address] [place], [address], 03/31/2024 09:14:23 ldh, serum or plasma 2023 024 [facility] Lab, [address] [place], [address], 03/24/2024 15:14:07 C-reactiv e protein, quantitat blake, serum or plasma [address] Lab, [address] [place], [address], 03/31/2024 09:14:22 ESR (erythroc yte sedimenta tion rate), blood [address] Lab, [address] [place], [address], 03/31/2024 09:14:23 iron + total iron-bind ing capacity (TIBC), serum [address] Lab, [address] [place], [address], 03/31/2024 09:14:23 iron saturatio n, serum [address] Lab, [address], [place], [address], 03/31/2024 09:14:23 Referral None recorded. Procedures None [...] contr ast No observ ation record ed. [address] (Med Record) [address], [place], [address], 03/25/2024 12:35:45 03/24/20 24 12/24/2023 CT, neck, soft tissu e, w/ contr ast No observ ation record ed. [address] (Med Record) [address], [place], [address], 03/24/2024 13:14:12 03/24/20 24 12/24/2023 CT, neck, soft tissu e, w/ contr ast No observ ation record ed. [address] (Med Record) [address], [place], [address], 03/24/2024 15:29:00 03/24/20 24 12/24/2023 CT, neck, soft tissu e, w/ contr ast No observ ation record ed. [address] (Med Record) [address], [place], [address], 03/25/2024 15:41:42 Result Notes None recorded. Problems Name Problem SNOMED Code Status Onset Date Resolution Date Notes Provider Name and Address Organization Details Recorded Time Depressive disorder 65213586 Active TOOTIE Damico [place] [facility] [place] 4 13:08:29 High glucose level in blood 327599855 Active TOOTIE Damico [place] [facility] [place] 4 13:08:29 Anxiety 71107655 Active TOOTIE Damico [place] [facility] [place] 4 13:08:29 Problem Notes None recorded. Procedures Surgical History Date Name Laterality Status Provider Name and Address Organization Details Recorded Time appendectomy completed Mony Moyer [place] [facility] [place] 03/24/2024 13:10:16 cholecystectomy completed Mony Moyer [place] [facility] [place] 03/24/2024 13:10:29 splenectomy completed Mony DONNELLY [facility] [place] 03/24/2024 13:11:09 tonsillectomy completed Mony DONNELLY [facility] & [place] 03/24/2024 13:15:07 Imaging Results None recorded. Procedure [...] Not Available No t Available Dexcom G7 Furnace [employer] USE DIRECTED active Not Available Not Available [...] Updated DateTime 4 167.64 cm 28.1 kg/m2 47391.7 9 g 98 % 98 % 93 /min 97.8 [degF] 106 mm[Hg] 68 mm[Hg] Mony Morrison [facility] [place] 13:15:40 Social History Question Answer Notes LastModified by Organizat ion Details LastModified Time Tobacco Smoking Status Never Smoker Mony Morrison [facility], [facility] [place] 03/24/2024 13:09:48 What Is Your Level Of Alcohol Consumption? 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 No Information not available 03/24/2024 Sex: Female Functional [...] 0 0 Immunizations Vaccine Type Date Status Note Provider Nam e and Address Organization Details Recorded Time Influenza, split virus, quadrivalent, preservative 2 completed Mony Workman null, [place] - [facility] [place] [facility] [place] 03/24/2024 13:08:33 Influenza, recombinant, quadrivalent, PF 0 completed Mony Workman null, [place] [facility] [place] [facility] [place] 03/24/2024 13:08:33 Influenza, live, trivalent, intranasal 3 completed Mony Workman null, [place] [facility] [place] [facility] [place] 03/24/2024 13:08:33 COVID-19, mRNA, LNP-S, PF, 100 mcg/0.5mL dose or 50 mcg/0.25mL dose 1 completed Mony Workman null, [place] [facility] [place] [facility] [place] 03/24/2024 13:08:33 COVID-19, mRNA, LNP-S, PF, 100 mcg/0.5mL dose or 50 mcg/0.25mL dose 1 completed Mony Workman null, [place] - [facility] [place] [facility] [place] 03/24/2024 13:08:33 Tdap 8 completed Mony Workman null, [place] [facility] [place] [facility] [place] 03/24/2024 13:08:33 Pneumococcal conjugate PCV 13 8 completed Mony Workman null, [place] [facility] [place] [facility] [place] 03/24/2024 13:08:33 meningococcal MCV4P 8 completed Moyn nieto, [place] - [facility] [place] [facility] [place] 03/24/2024 13:08:33 Influenza, split virus, quadrivalent, PF 4 completed Mony nieto, [place] - [facility] [place] [facility] [place] 03/24/2024 13:08:33 Influenza, split virus, quadrivalent, PF 9 completed Mony nieto, [place] - [facility] [place] [facility] [place] 03/24/2024 13:08:33 Past Encounters Encounter ID Performer Location Encounter Start Date Encounter Closed Date Diagnosis/Indication Diagnosis SNOMED-CT Code Diagnosis ICD10 Code [id number] Magnolia Nagel PA-C [facility] [address] [place] [address] 03/24/2024 13:00:40 03/24/2024 13:46:29 Leukocytosis 589541035 D72.829 Thrombocytosis 1596044 D 75.839 Cervical lymphadenopathy 962236375 R59.0 Unintentio nal weight loss 374524844 R63.4 History of splenectomy 555274958 Z90.81 Chronic tonsillitis 9097 9004 J35.01 Health Concerns Section Related Observation LastModified by Organization Detai ls LastModified Time None Recorded Concern Status LastModified by Organization Details LastModified Time None Recorded Payers Encounter Date Sequence Insurance Name Policy Number Policy Mccarty Covered Member ID Mccarty Member ID Guarantor Name 03/24/2024 1 [place] [id number] Lamine Garcia [id number] Olya Garcia Notes Date Note Type Note Provider Name and Address Organization Details Recorded Time 03/24/2024 text/html 43 year old fema le for evaluation of cervical lymphadenopathy leukocytosis and thrombocytosis. Patient has had recurrent tonsillitis. Patient was hospitalized with pneumonia in November 2023. She has had cervical lymphadenopathy and was evaluated by ENT at [facility]. ENT recommended tonsillectomy. She is scheduled [...] 92. Normal MCH and MCHC. Platelet count 889193. Differential with absolute lymphocyte count 5.4. No [...] up with further recommendations. Magnolia Nagel PA-C [address], [place], [address], [facility] [place] [facility] [place] 03/24/2024 14:22:20 OBGyn Episode No OBEpisode recorded.
--- OUTSIDE RECORDS SUMMARY | 2024-04-09 19:12 | XMS_ITS | Encounter Summary ---
[facility] Address [address] [place] [address] Care Team Providers Care Molding Manager Name Role Phone Unavailable Primary Care Provider Unavailabl e Encounter Details Date Type Department Care Team (Late st Contact Info) Description 04/02/2014 9:00 AM EST - 04/02/2014 11:59 PM EST Hospital Encounter [facility] [address] [facility] [address] [place] [address] Riky Hart MD [address] [facility] [address] [place] [address] Social History Tobacco Use Types Packs/Day Years [...] (04/02/2014 9:06 AM EST) Estradiol 233 pg/mL [facility] Comment: DF by IF @ 04/02/2014 11:23 Males: ?0.0-52.0 pg/mL Adult Female: ?Follicular Phase ? 11.0-165.0 pg/mL ?Midcycle ?146.0-526.0 pg/mL ?Luteal Phase ? 33.0-196.0 pg/mL ?Postmenopausal ?ND-37.0 pg/mL Blood specimen (specimen) 04/02/2014 9:06 AM EST Narrative [facility] - 04/02/2014 11:23 AM EST Specimen Type: Blood us Rkiy Hart MD LAB BLOOD ORDERABLES Final Resul t [facility] [address] [place] [address], documented in this encounter Visit Diagnoses Not on filedocumented in this encounter
--- OUTSIDE RECORDS SUMMARY | 2024-04-09 19:12 | XMS_ITS | Encounter Summary ---
[facility] Address [address] [place] [address] Care Team Providers Care Cotton Farmworker Name Role Phone Unavailable Primary Care Provider Unavailabl e Encounter Details Date Type Department Care Team (Late st Contact Info) Description 03/04/2014 11:10 AM EST - 03/04/2014 11:59 PM EST Hospital Encounter [facility] [address] [facility] [address] [place] [address] Riky Hart MD [address] [facility] [address] [place] [address] Social History Tobacco Use Types Packs/Day Years [...] (03/04/2014 11:13 AM EST) Estradiol 179 pg/mL [facility] Comment: DF by IF @ 03/04/2014 21:43 Males: ?0.0-52.0 pg/mL Adult Female: ?Follicular Phase ? 11.0-165.0 pg/mL ?Midcycle ?146.0-526.0 pg/mL ?Luteal Phase ? 33.0-196.0 pg/mL ?Postmenopausal ?ND-37.0 pg/mL Blood specimen (specimen) 03/04/2014 11:13 AM EST Narrative [facility] - 03/04/2014 9:43 PM EST Specimen Type: Blood us Riky Hart MD LAB BLOOD ORDERABLES Final Resul t [facility] [address] [place] [address], documented in this encounter Visit Diagnoses Not on filedocumented in this encounter
--- OUTSIDE RECORDS SUMMARY | 2024-04-09 19:12 | XMS_ITS | Encounter Summary ---
[facility] [address] [place] [address] Care Team Providers Care State Federal Relations Deputy Director Name Role Phone Unavailable Primary Care Provider Unavailabl e Encounter Details Date Type Department Care Team (Late st Contact Info) Description 03/23/2014 10:37 AM EST - 03/23/2014 11:59 PM EST Hospital Encounter [facility] [address] [facility] [address] [place] [address] Riky Hart MD 1760 [facility] [address] [place] [address] Social History Tobacco Use Types Packs/Day Years [...] (03/23/2014 10:44 AM EST) Estradiol 17 pg/mL [facility] Comment: DF by IF @ 03/23/2014 11:32 Males: ?0.0-52.0 pg/mL Adult Female: ?Follicular Phase ? 11.0-165.0 pg/mL ?Midcycle ?146.0-526.0 pg/mL ?Luteal Phase ? 33.0-196.0 pg/mL ?Postmenopausal ?ND-37.0 pg/mL Blood specimen (specimen) 03/23/2014 10:44 AM EST Narrative [facility] - 03/23/2014 11:32 AM EST Specimen Type: Blood us Riky Hart MD LAB BLOOD ORDERABLES Final Resul t [facility] [address] [place] [address], documented in this encounter Visit Diagnoses Not on filedocumented in this encounter
--- OUTSIDE RECORDS SUMMARY | 2024-04-09 19:12 | XMS_ITS | Encounter Summary ---
Author Organization [facility] Address [address] [place] [address] Care Team Providers Care Nail Artist Name Role Phone Clyde Almodovar MD Primary Care Provider Reason for Referral * Diagnostic Imaging (Routine) - Closed Specialty Diagnoses / Procedures Referred By Contac t Referred To Contact Radiology Diagnoses Encounter for screening mammogram for breast cancer Procedures Mammo screening digital tomosynthesis bilateral w Jeannette Edwards MD [facility] [address] [place] [address] Phone: tel: fax: [facility] [address] [place] [address] Phone: tel: Referral ID Status Reason Start Date Expiration Date Visits Re quested Visits Authorized [id number] Closed 10/06/2019 10/05/2020 1 1 Reason for Visit * Diagnostic Imaging (Routine) - Closed Specialty Diagnoses / Procedures Referred By Contac t Referred To Contact Radiology Diagnoses Encounter for screening mammogram for breast cancer Procedures Mammo screening digital tomosynthesis bilateral w Jeannette Edwards MD [facility] [address] [place] [address] Phone: tel: fax: [facility] [address] [place] [address] Phone: tel: Referral ID Status Reason Start Date Expiration Date Visits Re quested Visits Authorized [id number] Closed 10/06/2019 10/05/2020 1 1 Encounter Details Date Type Department Care Team (Late st Contact Info) Description 11/24/2019 8:00 AM EDT - 11/24/2019 11:59 PM EDT Hospital Encounter [facility] [address] [place] [address] Jeannette Centeno MD [address] [place] [address] Encounter for screening mammogram for [...] cancer documented in this encounter Care Teams Nail Artist Relationship Specialty Start Date End Date Clyde Almodovar MD [facility] [address] [facility] [address] [place] [address] PCP - General Family Medicine 11/24/19 documented as of this encounter
--- OUTSIDE RECORDS SUMMARY | 2024-04-09 19:12 | XMS_ITS | Encounter Summary ---
Author Organization [facility] Address [address] [place] [address] Care Team Providers Care Screen Printer Helper Name Role Phone Unavailable Primary Care Provider Unavailabl e Encounter Details Date Type Department Care Team (Late st Contact Info) Description 03/30/2014 10:28 AM EST - 03/30/2014 11:59 PM EST Hospital Encounter [facility] [address] [facility] [address] [place] [address] Riky Hart MD 1760 [facility] [address] [place] [address] Social History Tobacco Use Types Packs/Day Years [...] (03/30/2014 10:34 AM EST) Estradiol 102 pg/mL [facility] Comment: DF by IF @ 03/30/2014 11:33 Males: ?0.0-52.0 pg/mL Adult Female: ?Follicular Phase ? 11.0-165.0 pg/mL ?Midcycle ?146.0-526.0 pg/mL ?Luteal Phase ? 33.0-196.0 pg/mL ?Postmenopausal ?ND-37.0 pg/mL Blood specimen (specimen) 03/30/2014 10:34 AM EST Narrative [facility] - 03/30/2014 11:33 AM EST Specimen Type: Blood us Riky Hart MD LAB BLOOD ORDERABLES Final Resul t [facility] [address] [place] [address], documented in this encounter Visit Diagnoses Not on filedocumented in this encounter
--- OUTSIDE RECORDS SUMMARY | 2024-04-09 19:12 | XMS_ITS | Encounter Summary ---
[facility] Address [address] [place] [address] Care Team Providers Care Photographic Equipment Technician Name Role Phone Unavailable Primary Care Provider Unavailabl e Encounter Details Date Type Department Care Team (Late st Contact Info) Description 12/09/2013 11:26 AM EDT - 12/09/2013 11:59 PM EDT Hospital En[facility] [address] [facility] [address] [place] [address] Riky Hart MD [address]60 [facility] [address] [place] [address] Social History Tobacco Use Types Packs/Day Years [...] EDT) TSH 2.389 0.350 - 5.350 UIU/mL [facility] Comment: Specimens containing fluorescein can produce falsely depressed values with this assay. Patients undergoing fluorescein dye angiography should wait 72 hours post- treatment before testing. Blood specimen (specimen) 12/09/2013 11:28 AM EDT [facility] - 12/09/2013 1:44 PM EDT Specimen Type: Blood us Riky Hart MD LAB BLOOD ORDERABLES Final Resul t Performing Organization Address [facility] de Phone Number [facility] [address] [place] [address], * (ABNORMAL) CBC (No diff) (12/09/2013 11:28 AM EDT) WBC 11.19(H) 3.50 - 10.80 K/[facility] RBC 4.73 3.89 - 5.14 /[facility] Hemoglobin 14.1 11.5 - 15.5 g/dL [facility] Hematocrit 43.3 34.5 - 44.0 % [facility] MCV 91.5 80.0 - 99.0 fL [facility] MCH 29.8 27.0 - 31.0 pg [facility] MCHC 32.6 32.0 - 36.0 g/dL [facility] RDW-CV 13.8 11.3 - 14.5 % [facility] Platelets 381 150 - 450 K/[facility] Blood specimen (specimen) 12/09/2013 11:28 AM EDT [facility] - 12/09/2013 1:15 PM EDT Specimen Type: Blood us Riky Hart MD LAB BLOOD ORDERABLES Final Resul t Performing Organization Address [facility] de Phone Number [facility] [address] [place] [address], * Antibody Screen (12/09/2013 11:28 AM EDT) Antibody Screen Negative [facility] Blood specimen (specimen) 12/09/2013 11:28 AM EDT [facility] - 12/09/2013 1:54 PM EDT Specimen Type: Blood us Riky Hart MD BLOOD BANK TEST ORDERABLES Final Result Performing Organization Address City/[facility]/ZIP Co de Phone Number [facility] [address] [place] [address], * ABO/Rh (12/09/2013 11:28 AM EDT) ABORh O Rh Positive [facility] Blood specimen (specimen) 12/09/2013 11:28 AM EDT [facility] - 12/09/2013 1:54 PM EDT Specimen Type: Blood us Riky Hart MD BLOOD BANK TEST ORDERABLES Final Result Performing Organization Address [facility] [place] [address], documented in this encounter Visit Diagnoses Not on filedocumented in this encounter
--- OUTSIDE RECORDS SUMMARY | 2024-04-09 19:12 | XMS_ITS | Encounter Summary ---
[facility] Address [address] [place] [address] Care Team Providers Care Center Machine Set Up Operator Name Role Phone Unavailable Primary Care Provider Unavailabl e Encounter Details Date Type Department Care Team (Late st Contact Info) Description 02/03/2014 11:19 AM EDT - 02/03/2014 11:59 PM EDT Hospital Encounter [facility] [address] [facility] 103 [place] [address] Riky Hart MD 1760 [facility] [address] [place] [address] Social History Tobacco Use Types Packs/Day Years [...] (02/03/2014 11:21 AM EDT) Estradiol 244 pg/mL [facility] Comment: DF by IF @ 02/03/2014 12:36 Males: ?0.0-52.0 pg/mL Adult Female: ?Follicular Phase ? 11.0-165.0 pg/mL ?Midcycle ?146.0-526.0 pg/mL ?Luteal Phase ? 33.0-196.0 pg/mL ?Postmenopausal ?ND-37.0 pg/mL Blood specimen (specimen) 02/03/2014 11:21 AM EDT Narrative [facility] - 02/03/2014 12:36 PM EDT Specimen Type: Blood us Riky Hart MD LAB BLOOD ORDERABLES Final Resul t [facility] [address] [place] [id number], documented in this encounter Visit Diagnoses Not on filedocumented in this encounter
--- OUTSIDE RECORDS SUMMARY | 2024-04-09 19:12 | XMS_ITS | Encounter Summary ---
[facility] Address [address] [place] [address] Care Team Providers Care Insurance Marketing Rep Name Role Phone Unavailable Primary Care Provider Unavailabl e Encounter Details Date Type Department Care Team (Late st Contact Info) Description 01/29/2014 11:11 AM EDT - 01/29/2014 11:59 PM EDT Hospital Encounter [facility] [address] [facility] [address] [place] [address] Riky Hart MD [address] [facility] [address] [place] [address] Social History Tobacco Use Types Packs/Day Years [...] (01/29/2014 11:13 AM EDT) Estradiol 84 pg/mL [facility] Comment: DF by IF @ 01/29/2014 12:41 Males: ?0.0-52.0 pg/mL Adult Female: ?Follicular Phase ? 11.0-165.0 pg/mL ?Midcycle ?146.0-526.0 pg/mL ?Luteal Phase ? 33.0-196.0 pg/mL ?Postmenopausal ?ND-37.0 pg/mL Blood specimen (specimen) 01/29/2014 11:13 AM EDT Narrative [facility] - 01/29/2014 12:41 PM EDT Specimen Type: Blood us Riky Hart MD LAB BLOOD ORDERABLES Final Resul t [facility] [address] [id number], documented in this encounter Visit Diagnoses Not on filedocumented in this encounter
--- OUTSIDE RECORDS SUMMARY | 2024-04-09 19:12 | XMS_ITS | Clinical Summary ---
Author Organization [facility] Address [address] [place] [address] Care Team Providers Care General Accounting Manager Name Role Phone Clyde Almodovar MD Primary [...] Most Recently Relevant to Health Maintenance Insurance [facility] PPO Care Teams General Accounting Manager Relationship Specialty Start Date End Date Clyde Almodovar MD [address] [place] [address] [place] [id number] PCP - General Family Medicine 11/24/19
--- OUTSIDE RECORDS SUMMARY | 2024-04-09 19:12 | XMS_ITS | Encounter Summary ---
[facility] Address [address] [place] [address] Care Team Providers Care Progress Clerk Name Role Phone Unavailable Primary Care Provider Unavailabl e Encounter Details Date Type Department Care Team (Late st Contact Info) Description 02/24/2014 10:55 AM EDT - 02/24/2014 11:59 PM EDT Hospital Encounter [facility] [address] [facility] [address] [place] [address] Riky Hart MD [address] [facility] [address] [place] [address] Social History Tobacco Use Types Packs/Day Years [...] specimen (specimen) 02/24/2014 10:56 AM EDT Narrative [facility] - 02/24/2014 6:18 PM EDT Specimen Type: Blood us Riky Hart MD LAB BLOOD ORDERABLES Final Resul t [facility] [address] [phone], documented in this encounter Visit Diagnoses Not on filedocumented in this encounter
--- OUTSIDE RECORDS SUMMARY | 2024-04-09 19:12 | XMS_ITS | Data Portability ---
Author Organization [facility] Brenda & CONY Pugh ADMIN Address [address] [place] [id number] Care Team Providers Care Cook [employer] Name Role Phone BRIAN SAUCEDA Primary Care Provider [phone] Assessment No assessment recorded. Plan of Treatment Reminders Order Date Submit Date Provider Last Modified By Organization Details Last Modified Time Details Appointments FOLLOW UP 15 2024 02:15P Gabriella Peter MD Not available Not available Not available Lab lui-b arr virus (ebv) IgG + IgM panel, serum [address] Lab, [address] [facility], [place], [address], 03/31/2024 15:57:51 CBC w/ auto diff 2023 024 [facility] Lab, [address] [facility], [place], [address], 03/24/2024 14:31:13 CMP, serum or plasma 2023 024 [facility] Lab, [address] [facility], [place], [address], 03/24/2024 15:12:59 bcr-abl transloca tion, PCR, blood/bon e marrow [address] Lab, [address] [facility], [place], [address], 03/31/2024 09:14:22 chronic leukemia panel, flow cytometry , unspecifi ed specimen [address], [address] [place], [address], 03/31/2024 09:14:22 jak2 ([id number]) mutation, blood/tis millie [address] [facility], [address] [place], [address], 03/31/2024 15:57:51 TSH, serum or plasma [address] [facility], [address] [place], [address], 03/31/2024 09:14:23 ldh, serum or plasma 2023 ENR[facility] Lab, [address] [place], [address], 03/24/2024 15:14:07 C-reactiv e protein, quantitat cassandra, serum or plasma [address] [facility], [address] [place], [address], 03/31/2024 09:14:22 ESR (erythroc yte sedimenta tion rate), blood [address] [facility], [address] [place], [address], 03/31/2024 09:14:23 iron + total iron-bind ing capacity (TIBC), serum [address] [facility], [address] [place], [address], 03/31/2024 09:14:23 iron saturatio n, serum 2023 024 [facility], [address] , [place], [address], 03/31/2024 09:14:23 Referral None recorded. Procedures None recorded. Surgeries None recorded. Imaging None recorded. Medication Orders None recorded. Patient TargetsNo targets recorded. Patient InstructionsNo instructions recorded. Reason for Referral None Reported. Results Created Date Observation Date Name Description Value Unit Range Abnormal Flag Note LastModifiedBy Organization Detail LastModifiedTime 03/24/2003/24/2024 CBC AUTO W DIFF WBC 11.1 K/uL 4.0-10 .5 high Not Available [facility] ([facility]) [address] , [place], [address], 03/24/2024 14:31:13 03/24/2003/24/2024 CBC AUTO W DIFF RBC 4.3 M/mm3 4.2-6. 4 Not Available [facility] ([facility]) [address] , [place], [address], 03/24/2024 14:31:13 03/24/20 24 03/24/2024 CBC AUTO W DIFF HGB 13.0 gm/dL 12.5-1 6.0 Not Available [facility] ([facility]) [address] , [place], [address], 03/24/2024 14:31:13 03/24/20 24 03/24/2024 CBC AUTO W DIFF HCT 39.5 % 37.0-4 7.0 Not Available [facility] ([facility]) [address] , [place], [address], 03/24/2024 14:31:13 03/24/20 24 03/24/2024 CBC AUTO W DIFF MCV 91.9 fL 78-100 Not Available [facility] ([facility]) [address] , [place], [address], 03/24/2024 14:31:13 03/24/20 24 03/24/2024 CBC AUTO W DIFF MCH 30.2 pg 27-31 Not Available [facility] ([facility]) [address] , [place], [address], 03/24/2024 14:31:13 03/24/20 24 03/24/2024 CBC AUTO W DIFF MCHC 32.9 g/dL 32-36 Not Available [facility] ([facility]) [address] , [place], [address], 03/24/2024 14:31:13 03/24/2003/24/2024 CBC AUTO W DIFF RDW 14.1 % 11.5-1 4.0 high Not Available [facility] ([facility]) [address] , [place], [address], 03/24/2024 14:31:13 03/24/2003/24/2024 CBC AUTO W DIFF platelet count 528 K/uL 150-45 0 high Not Available [facility] ([facility]) [address], [place], [address], 03/24/2024 14:31:13 03/24/20 24 03/24/2024 CBC AUTO W DIFF MPV 10.2 fL 6-9.5 high Not Available [facility] ([facility]) [address] , [place], [address], 03/24/2024 14:31:13 03/24/20 24 03/24/2024 CBC AUTO W DIFF neutrophil% 41.8 % 43-65 low Not Available [facility] ([facility]) [address] [place], [address], 03/24/2024 14:31:13 03/24/20 24 03/24/2024 CBC AUTO W DIFF lymphocyte% 45.2 % 20.5-4 5.5 Not Available [facility] ([facility]) [address] [place], [address], 03/24/2024 14:31:13 03/24/20 24 03/24/2024 CBC AUTO W DIFF monocyte% 9.1 % 5.5-11 .7 Not Available [facility] ([facility]) [address] [facility], [place], [address], 03/24/2024 14:31:13 03/24/20 24 03/24/2024 CBC AUTO W DIFF eosinophil% 1.8 % 0.9-2. 9 Not Available [facility] ([facility]) [address] [facility], [place], [address], 03/24/2024 14:31:13 03/24/20 24 03/24/2024 CBC AUTO W DIFF basophil% 1.4 % 0.2-1. 0 high Not Available [facility] ([facility]) [address] [facility], [place], [address], 03/24/2024 14:31:13 03/24/20 24 03/24/2024 CBC AUTO W DIFF immature granulocytes % 0.7 % 0.0-0. 8 Not Available [facility] ([facility]) [address] [facility], [place], [address], 03/24/2024 14:31:13 03/24/2003/24/2024 CBC AUTO W DIFF nucleated red blood cells % 0.0 % Not Available [facility] ([facility]) [address] [facility], [place], [address], 03/24/2024 14:31:13 03/24/20 24 03/24/2024 CBC AUTO W DIFF neutrophil# 4.6 K/uL 2.2-4. 8 Not Available [facility] ([facility]) [address] [facility], [place], [address], 03/24/2024 14:31:13 03/24/20 24 03/24/2024 CBC AUTO W DIFF lymphocyte# 5.0 cell/ mcL 1.3-2. 9 high Not Available [facility] ([facility]) [address], [place], [address], 03/24/2024 14:31:13 03/24/20 24 03/24/2024 CBC AUTO W DIFF monocyte# 1.0 cell/ mcL 0.3-0. 8 high Not Available [facility] ([facility]) [address], [place], [address], 03/24/2024 14:31:13 03/24/20 24 03/24/2024 CBC AUTO W DIFF eosinophil# 0.2 cell/ mcL 0-0.2 Not Available [facility] ([facility]) [address], [place], [address], 03/24/2024 14:31:13 03/24/20 24 03/24/2024 CBC AUTO W DIFF basophil# 0.2 cell/ mcL 0.0-1. 0 Not Available [facility] ([facility]) [address], [place], [address], 03/24/2024 14:31:13 03/24/20 24 03/24/2024 CBC AUTO W DIFF immature gramulocytes # 0.08 K/uL Not Available [facility] ([facility]) [address] [facility], [place], [address], 03/24/2024 14:31:13 03/24/20 24 03/24/2024 CBC AUTO W DIFF nucleated red blood cells # 0.00 K/uL Not Available [facility] ([facility]) [address] [facility], [place], [address], 03/24/2024 14:31:13 03/24/20 24 03/24/2024 CBC AUTO W DIFF manual differential NO Not Available [facility] ([facility]) [address] [facility] [place], [address], 03/24/2024 14:31:13 03/24/20 24 03/24/2024 SED RATE sed rate auto 10 0-20 Not Available [facility] ([facility]) [address], [place], [address], 03/24/2024 14:54:07 03/24/20 24 03/24/2024 IRON STUDY (IRON /TIBC /%SAT ) iron 62 mcg/m L 40-180 Not Available [facility] ([facility]) [address], [place], [address], 03/24/2024 14:55:14 03/24/20 24 03/24/2024 IRON STUDY (IRON /TIBC /%SAT ) TIBC 285 mcg/d L 250-45 0 Not Available [facility] ([facility]) [address], [place], [address], 03/24/2024 14:55:14 03/24/20 24 03/24/2024 IRON STUDY (IRON /TIBC /%SAT ) %sat 22 15-55 Not Available [facility] ([facility]) [address], [place], [address], 03/24/2024 14:55:14 03/24/20 24 03/24/2024 COMP METAB OLIC PANEL sodium 137 mmol/ L 136-14 5 Not Available [facility] ([facility]) [address] , [place], [address], 03/24/2024 15:12:59 03/24/20 24 03/24/2024 COMP METAB OLIC PANEL potassium 3.3 mmol/ L 3.6-5. 0 low Not Available [facility] ([facility]) [address], [place], [address], 03/24/2024 15:12:59 03/24/20 24 03/24/2024 COMP METAB OLIC PANEL chloride 102 mmol/ L 98-107 Not Available [facility] ([facility]) [address], [place], [address], 03/24/2024 15:12:59 03/24/2003/24/2024 COMP METAB OLIC PANEL carbon dioxide 26.1 mmol/ L 21.0-3 2.0 Not Available [facility] ([facility]) [address] [facility], [place], [address], 03/24/2024 15:12:59 03/24/2003/24/2024 COMP METAB OLIC PANEL anion gap 12.2 Not Available [facility] ([facility]) [address] [facility], [place], [address], 03/24/2024 15:12:59 03/24/2003/24/2024 COMP METAB OLIC PANEL glucose 285 mg/dL 70-120 high Not Available [facility] ([facility]) [address] [facility], [place], [address], 03/24/2024 15:12:59 03/24/2003/24/2024 COMP METAB OLIC PANEL BUN 12 mg/dL 7-18 Not Available [facility] ([facility]) [address] [facility], [place], [address], 03/24/2024 15:12:59 03/24/2003/24/2024 COMP METAB OLIC PANEL creatinine 0.8 mg/dL 0.6-1. 3 Not Available [facility] ([facility]) [address] [facility], [place], [address], 03/24/2024 15:12:59 03/24/20 24 03/24/2024 COMP METAB [...] mujica ing kiney funct ion. Not Available [facility] ([facility]) [address] [facility], [place], [address], 03/24/2024 15:12:59 03/24/20 24 03/24/2024 COMP METAB OLIC PANEL total protein 7.3 g/dL 6.4-8. 2 Not Available [facility] ([facility]) [address] [facility], [place], [address], 03/24/2024 15:12:59 03/24/20 24 03/24/2024 COMP METAB OLIC PANEL albumin 3.3 g/dL 3.4-5. 0 low Not Available [facility] ([facility]) [address] [facility], [place], [address], 03/24/2024 15:12:59 03/24/20 24 03/24/2024 COMP METAB OLIC PANEL globulin 4.0 Not Available [facility] ([facility]) [address] [facility], [place], [address], 03/24/2024 15:12:59 03/24/20 24 03/24/2024 COMP METAB OLIC PANEL alb/glob ratio 0.8 0.7-2 Not Available [facility] ([facility]) [address] [facility], [place], [address], 03/24/2024 15:12:59 03/24/20 24 03/24/2024 COMP METAB OLIC PANEL calcium 8.7 mg/dL 8.5-10 .5 Not Available [facility] ([facility]) [address] [facility], [place], [address], 03/24/2024 15:12:59 03/24/20 24 03/24/2024 COMP METAB OLIC PANEL bilirubin total 0.30 mg/dL 0.10-1 .00 Not Available [facility] ([facility]) [address] [facility], [place], [address], 03/24/2024 15:12:59 03/24/20 24 03/24/2024 COMP METAB OLIC PANEL AST (SGOT) 13 U/L 0-37 Not Available [facility] ([facility]) [address] [facility], [place], [address], 03/24/2024 15:12:59 03/24/20 24 03/24/2024 COMP METAB OLIC PANEL ALT (SGPT) 16 U/L 0-65 Not Available [facility] ([facility]) [address] [facility], [place], [address], 03/24/2024 15:12:59 03/24/20 24 03/24/2024 COMP METAB OLIC PANEL alk phosphatase 104 U/L 46-116 Not Available [facility] ([facility]) [address] [facility], [place], [address], 03/24/2024 15:12:59 03/24/20 24 03/24/2024 C-ABIODUN CTIVE PROTE IN (CRP) C-reactive protein, quant 0.6 mg/dL 0.05-0 .300 high Not Available [facility] ([facility]) [address] [facility], [place], [address], 03/24/2024 15:14:05 03/24/2003/24/2024 LDH (LD) LDH 138 U/L 0-190 Not Available [facility] ([facility]) [address] [facility], [place], [address], 03/24/2024 15:14:07 03/24/20 24 03/24/2024 THYRO ID STIMU LATIN G HORMO NE thyroid stim hormone 0.63 mIU/L 0.36-3 .74 Not Available [facility] ([facility]) [address] [facility], [place], [address], 03/24/2024 15:14:09 03/24/20 24 03/29/2024 BCR-A BL1 [...] e drew cteri stics deter mined by [employer]. It has not been clear ed or appro nurys by the Food and Drug Admin istra tion. Not Available [facility] ([facility]) [address] [facility], [place], [address], 03/29/2024 06:11:01 03/24/20 24 03/29/2024 BCR-A BL1 RT-PC R interpretati on: Negati ve NEGAT CASSANDRA for the BCR-A BL1 e1a2 (p190 ), e13a2 (b2a2 , p210) and e14a2 (b3a2 , p210) fusio n trans cript s. These resul ts do not rule out the prese nce of rare BCR-A BL1 trans cript s not detec dina by this assay . Not Available [facility] ([facility]) [address] [facility], [place], [address], 03/29/2024 06:11:01 03/24/20 24 03/29/2024 BCR-A BL1 RT-PC R b2a2 transcript <0.003 2 % % Not Available [facility] ([facility]) [address] [facility], [place], [address], 03/29/2024 06:11:01 03/24/20 24 03/29/2024 BCR-A BL1 RT-PC R b3a2 transcript <0.003 2 % % Not Available [facility] ([facility]) [address] [facility], [place], [address], 03/29/2024 06:11:01 03/24/20 24 03/29/2024 BCR-A BL1 RT-PC R e1a2 transcript <0.003 2 % % Not Available [facility] ([facility]) [address] [facility], [place], [address], 03/29/2024 06:11:01 03/24/20 24 03/29/2024 BCR-A BL1 RT-PC R pdf image . Perfo rmed at: [facility] [place] [address] [facility] [place] [address] Lab Direc tor: Catherine Eid [facility] , Phone : [phone] Perfo rmed at: [facility] [place] [address] , [place] [address] Lab Direc tor: Catherine Eid [facility] , Phone : [phone] Not Available [facility] ([facility]) [address] [facility], [place], [address], 03/29/2024 06:11:01 03/24/20 24 03/29/2024 BCR-A BL1 [...] matio n as indic ated. Not Available [facility] ([facility]) [address], [place], [address], 03/29/2024 06:11:01 03/24/20 24 03/29/2024 BCR-A BL1 RT-PC R director review: Rustam Luna, PhD, [facility] Direc tor, [facility] Biolo [place] [address] [phone] Not Available [facility] ([facility]) [address] , [place], [address], 03/29/2024 06:11:01 03/24/20 24 03/31/2024 CHRON IC LEUKE NNAMDI/L NAPOLEON MA specimen type Rustam Rios heral blood Not Available [facility] ([facility]) [address], [place], [address], 03/31/2024 13:10:11 03/24/20 24 03/31/2024 CHRON IC LEUKE NNAMDI/L YMPHO MARÍA clinical information Rustam blue CBC was not avail able for revie w at the time this r eport was prepa red. Not Available [facility] ([facility]) [address], [place], [address], 03/31/2024 13:10:11 03/24/20 24 03/31/2024 CHRON IC [...] [address] [place], [place] [address] Lab Direc tor: Catherine Eid [facility] , Phone : [phone] Perfo rmed at: [facility] [place] [address] , [place] [address] Lab Direc tor: aCtherine Eid [facility] , Phone : [phone] Not Available [facility] ([facility]) [address] [facility], [place], [address], 03/31/2024 13:10:11 03/24/20 24 03/31/2024 CHRON IC [...] n is recom kannan d. Not Available [facility] ([facility]) [address] [facility], [place], [address], 03/31/2024 13:10:11 03/24/20 24 03/31/2024 CHRON IC LEUKE NNAMDI/L YMPHO MA flow interpretati on Commen t . No signi fican t immun ophen otypi c abnor malit y detec dina. Lymph ocyto sis, see comme nt. Not Available [facility] ([facility]) [address] [facility], [place], [address], 03/31/2024 13:10:11 03/24/20 24 03/31/2024 CHRON IC [...] 31%, NK c ells 2% Not Available [facility] ([facility]) [address] [facility], [place], [address], 03/31/2024 13:10:11 03/24/20 24 03/31/2024 CHRON IC LEUKE NNAMDI/L YMPHO MA resulting path name Commen t . Osvaldo Gary M.D. Ph.D Not Available [facility] ([facility]) [address] [facility], [place], [address], 03/31/2024 13:10:11 03/24/20 24 03/31/2024 CHRON IC [...] Roxanna l CD64 Roxanna l Not Available [facility] ([facility]) [address] [facility], [place], [address], 03/31/2024 13:10:11 03/24/20 24 03/31/2024 CHRON IC LEUKE NNAMDI/L YMPHO MA analysis and gating strategy Commen t . 8 color elvira sis with CD45/ SSC luz marina ritchie [employer]- Evlira sis perfo rmed at [facility] [employer], [address] [place] [address] Direc tor: Catherine Eid , [facility] Not Available [facility] ([facility]) [address] [place], [address], 03/31/2024 13:10:11 03/24/20 24 03/31/2024 CHRON IC LEUKE NNAMDI/L YMPHO MA viability Commen t . 97% Not Available [facility] ([facility]) [address] [place], [address], 03/31/2024 13:10:11 03/24/20 24 03/31/2024 EBV(E PSTEI N-BAR R VIRUS )AB PRO ebv Ab vca, IgM <36.0 U/mL 0.0-35 .9 Negat cassandra <36.0 Equiv ocal 36.0 - 43.9 Posit cassandra >43.9 Not Available [facility] ([facility]) [address] [place], [address], 03/31/2024 13:10:13 03/24/20 24 03/31/2024 EBV(E PSTEI N-BAR R VIRUS )AB PRO ebv Ab vca, IgG 336.0 U/mL 0.0-17 .9 high Negat cassandra <18.0 Equiv ocal 18.0 - 21.9 Posit cassandra >21.9 Not Available [facility] ([facility]) [address] [facility], [place], [address], 03/31/2024 13:10:13 03/24/20 24 03/31/2024 EBV(E PSTEI N-BAR R VIRUS )AB PRO ebv nuclear antigen Ab, IgG 404.0 U/mL 0.0-17 .9 high Negat cassandra <18.0 Equiv ocal 18.0 - 21.9 Posit cassandra >21.9 Not Available [facility] ([facility]) [address] [facility], [place], [address], 03/31/2024 13:10:13 03/24/20 24 03/31/2024 EBV(E PSTEI [...] EBNA. Perfo rmed at: [facility] [address] [place] [address] [facility] Lab Direc tor: Bright almaraz PhD, Phone : [phone] Not Available [facility] ([facility]) [address] [facility], [place], [address], 03/31/2024 13:10:13 03/24/2003/31/2024 JAK2 V617 MUTAT ION [...] with these disor ders. . Not Available [facility] ([facility]) [address], [place], [address], 03/31/2024 13:10:14 03/24/20 24 03/31/2024 JAK2 V617 MUTAT ION DETEC TION director review Rustam Luna, PhD, [facility] Direc tor, [facility] ular Biolo [place] [address] [phone] . This test was devtracey monge and its perfo rmanc e drew cteri stics deter mined by [employer]. It has not been clear ed or appro nurys by the Food and Drug Admin istra tion. Perfo rmed at: [facility] [place] [address] [facility], [facility] [place] [address] Lab Direc tor: Catherine Eid [facility] , Phone : [phone] Perfo rmed at: [facility] [place] [address] , [facility] [place] [address] Lab Direc tor: Catherine Eid [facility] , Phone : [phone] Not Available [facility] ([facility]) [address], [place], [address], 03/31/2024 13:10:14 03/24/20 24 03/31/2024 JAK2 V617 MUTAT ION DETEC TION background Commen t . JAK2 is a cytop lasmi c tyros ine kinas e with a jung role in signa l trans ducti on from multi ple hemat opoie tic growt h facto r basket sorter tors. A point mutat ion withi n [...] t V617F . The ABI79 00 Absol radha Quant itati on softw are will warren [...] disor ders. Travis t. 2004Jul 16 ; 365(9 373): 1054- 1061. Tevin Arreola V, Jackie clinton BRADEN. A uniqu e clona l JAK2 mutat ion leadi ng to const ituti ve signa ling cause s polyc ythae nnamdi vera. Natur e. 2004Aug 25; 434(2 699): 1144- 1149. Tanika quispe R, Arturo billy F, Deo , et al. A gain- of- funct ion mutat ion of JAK2 in myelo proli ferat cassandra disor ders. N Engl J Med. 2004Aug 25; 352(1 7):17 79-17 90. Not Available [facility] ([facility]) [address], [place], [address], 03/31/2024 13:10:14 03/24/20 24 12/24/2023 CT, neck, soft tissu e, w/ contr ast No observ ation record ed. [address] (Med Record) [address], [place], [address], 03/25/2024 12:35:45 03/24/20 24 12/24/2023 CT, neck, soft tissu e, w/ contr ast No observ ation record ed. [address] (Med Record) [address], [place], [address], 03/24/2024 13:14:12 03/24/20 24 12/24/2023 CT, neck, soft tissu e, w/ contr ast No observ ation record ed. [address] (Med Record) [address], [place], [address], 03/24/2024 15:29:00 11/12/24/2023 CT, neck, soft tissu e, w/ contr ast No observ ation record ed. [email or web address] (Med Record) [address], [place], [address], 03/25/2024 15:41:42 Result Notes None recorded. Problems Name Problem SNOMED Code Status Onset Date Resolution Date Notes Provider Name and Address Organization Details Recorded Time Depressive disorder 57259925 Active 024 Mony Morrison null, [place] - [facility] [place] & [place] 4 13:08:29 High glucose level in blood 263895496 Active 021 Mony Morrison null, [place] [facility] [place] 13:08:29 Anxiety [id number] Active 024 Mony Morrison null, [place] [facility] [place] 4 13:08:29 Problem Notes None recorded. Procedures Surgical History Date Name Laterality Status Provider Name and Address Organization Details Recorded Time appendectomy completed Mony SOMMERS - [facility] - [place] & [place] 03/24/2024 13:10:16 cholecystectomy completed Mony SOMMERS - [facility] - [place] & [place] 03/24/2024 13:10:29 splenectomy completed Mony SOMMERS - [facility] - [place] & [place] 03/24/2024 13:11:09 tonsillectomy completed Mony SOMMERS - [facility] - [place] & [place] 03/24/2024 13:15:07 Imaging Results Imaging Date Name Status LastModified by Organiz ation Details LastModified Time 12/24/2023 CT, neck, soft tissue, w/ contrast completed [address] (Med Record) [address], [place], [address], 03/25/2024 12:35:45 12/24/2023 CT, neck, soft tissue, w/ contrast completed [address] (Med Record) [address], [place], [address], 03/24/2024 13:14:12 12/24/2023 CT, neck, soft tissue, w/ contrast completed [email or web address] (Med Record) [address], [place], [address], 03/24/2024 15:29:00 12/24/2023 CT, neck, soft tissue, w/ contrast completed [facility] (Med Record) [address], [place], [address], 03/25/2024 15:41:42 Procedure Notes None recorded. 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 DIRECTED active Not Available Not Available [...] Last Updated DateTime 167.64 cm 28.1 kg/m2 68244.7 9 g 98 % 98 % 93 /min 97.8 [degF] 106 mm[Hg] 68 mm[Hg] Mony DONNELLY [facility] & [place] 13:15:40 Social History Question Answer Notes LastModified by Organizat ion Details LastModified Time Tobacco Smoking Status Never Smoker Mony nieto, [place] DONNELLY [facility] & [place] 03/24/2024 13:09:48 What Is Your Level Of [...] Mony Workman null, [place] - [facility] - [place] & [place] 03/24/2024 13:08:33 Influenza, recombinant, quadrivalent, PF 0 completed Mony Workman null, [place] [facility] [place] 03/24/2024 13:08:33 Influenza, live, trivalent, intranasal 3 completed Mony Workman null, [place] [facility] [place] 03/24/2024 13:08:33 COVID-19, mRNA, LNP-S, PF, 100 mcg/0.5mL dose or 50 mcg/0.25mL dose 1 completed Mony Workman null, [place] [facility] [place] 03/24/2024 13:08:33 COVID-19, mRNA, LNP-S, PF, 100 mcg/0.5mL dose or 50 mcg/0.25mL dose 1 completed Mony Workman null, [place] [facility] [place] 03/24/2024 13:08:33 Tdap 8 completed Mony Workman null, [place] [facility] [place] 03/24/2024 13:08:33 Pneumococcal conjugate PCV 13 8 completed Mony Workman null, [place] [facility] [place] 03/24/2024 13:08:33 meningococcal MCV4P 8 completed Mony Workman null, [place] [facility] [place] 03/24/2024 13:08:33 Influenza, split virus, quadrivalent, PF 4 completed Mony Workman null, [place] [facility] [place] 03/24/2024 13:08:33 Influenza, split virus, quadrivalent, PF 9 completed Mony Workman null, [place] [facility] [place] 03/24/2024 13:08:33 Past Encounters Encounter ID Performer Location Encounter Start Date Encounter Closed Date Diagnosis/Indication Diagnosis SNOMED-CT Code Diagnosis ICD10 Code [id number] Magnolia Nagel PA-C [facility] [address] [place] [address] 03/24/2024 13:00:40 03/24/2024 13:46:29 Leukocytosis 386523222 D72.829 Thrombocytosis 8627103 D 75.839 Cervical lymphadenopathy 476174556 R59.0 Unintentio nal weight loss 798776277 R63.4 History of splenectomy 293742316 Z90.81 Chronic tonsillitis 9097 9004 J35.01 Health Concerns Section Related Observation LastModified by Organization Detai ls LastModified Time None Recorded Concern Status LastModified by Organization Details LastModified Time None Recorded Advance Directives Directive None Recorded Payers Encounter Date Sequence Insurance Name Policy Number Policy Mccarty Covered Member ID Mccarty Member ID Guarantor Name 03/24/2024 1 [place]) [id number] Lamine Garcia [id number] Olya Garcia Notes Date Note Type Note Provider Name and Address Organization Details Recorded Time 03/24/2024 text/html 43 year old fema le for evaluation of cervical lymphadenopathy leukocytosis and thrombocytosis. Patient has had recurrent tonsillitis. Patient was hospitalized with pneumonia in November 2023. She has had cervical lymphadenopathy and was evaluated by ENT at [facility]. ENT recommended tonsillectomy. She is scheduled for [...] 92. Normal MCH and MCHC. Platelet count 643456. Differential with absolute lymphocyte count 5.4. No [...] up with further recommendations. Magnolia Nagel PA-C [address], [place], [address], [facility] - [place] - [place] & [place] 03/24/2024 14:22:20 OBGyn Episode No OBEpisode recorded.
--- OUTSIDE RECORDS SUMMARY | 2024-04-09 19:13 | XMS_ITS | Continuity of Care Document ---
Author Organization [facility], ENDOCRINOLOGY Address [address] [place] [address] Care Team Providers Care Light Rail Operator Name Role Phone JESS MAHMOOD Primary Care Provider [phone] Assessment No assessment recorded. Plan of Treatment Reminders Order Date Submit Date Provider Last Modified By Organization Details Last Modified Time Details Appointments RECHECK 2023 01:45P M ERIC PRECIADO APRN Not available Not available Not available DERMATOL OGY VISIT 2024 01:00P M OLIVER SCHMIDT MD Not available Not available Not available Lab glucose, fingerst ick, blood 2023 024 8 [facility], [address] [place] [address], [phone], 01/09/2024 15:29:36 hemoglob in A1C, fingerst ick 2023 024 [email or web address] 8 [facility] , [address] [place] [address], [phone], 01/09/2024 15:29:38 Referral None recorded . Procedures None recorded . Surgeries None recorded . Imaging None recorded . Medication Orders Mounjaro 10 mg/0.5 mL subcutan eous pen injector 2023 024 [facility], [address] [place], [address], 01/09/2024 15:29:44 Toujeo Max U-300 SoloStar 300 unit/mL (3 mL) subcutan eous insulin pen 2023 024 [facility], [address], [address], 01/09/2024 15:29:46 Patient TargetsNo targets recorded. Patient InstructionsNo instructions recorded. Reason for Referral None Reported. Results Created Date Observation Date Name Description Value Unit Range Abnormal Flag Note LastModifiedBy Organization Detail LastModifiedTime 01/09/2001/09/2024 hemog lobin A1C, finge rstic k hemoglobin A1C % 10.8 % 4.0 - 5.6 Not Available [facility] [place] [address] [place] [address], [phone], 01/08/2024 08:24:06 01/09/20 24 01/09/2024 gluco se, joone rstic k, blood glucose, fingerstick 303 mg/dL 70 - 100 Not Available [facility] [address] [place], [address], 01/08/2024 08:24:06 02/22/20 24 02/19/2024 XR, chest [...] Recorded Time High glucose level in blood 455937402 Active 2020 Not Available [facility] 3 06:18:45 Depressive disorder 84563890 Active 2023 BRIAN DE, DO [address] [place] [address], [phone] , [facility] 4 11:08:24 Anxiety 42235342 Active 2023 BRIAN DE, DO [address] [place] [address], [phone] , [facility] 4 11:08:34 Cervical lymphadenopat hy 741310800 Active 2023 BRIAN DE, DO [address] [place], [address] , [facility] 4 14:17:23 Chronic tonsillitis 99229308 Active 2023 BRIAN DE, DO [address] [place], [address] , [facility] 4 14:17:24 Problem Notes None recorded. Procedures Surgical History Date Name Laterality Status Provider Name and Address Organization Details Recorded Time procedure on spleen completed [facility] 02/17/2021 09:40:19 procedure on gallbladder completed [facility] 02/17/2021 09:40:30 endoscopic procedure on spleen completed [facility] 02/17/2021 09:40:59 procedure on appendix completed [facility] 02/17/2021 09:41:08 Imaging Results None [...] Not Available Not Available No t Available [employer] Ultra Test strips USE 1 STRIP TO [...] completed Not Available Not Available Not Available [email or web address] BCise 2 mg/0.85 mL subcutaneou s auto-inject [...] active Not Available Not Available Not Avai labantonio Dexcom G6 Transmitter device REPLACE EVERY 3 MONTHS active Not Available Not Available No t Available BD Kim 2nd Gen Pen Needle 32 gauge x /32 active Not Available Not Available Not Available [...] Not Available No t Available Dexcom G7 Firer Tunnel Kiln USE DIRECTED active Not Available Not Available No t Available Dexcom G7 Sensor device CHANGE SENSOR EVERY 10 DAYS active Not Available Not Available No t Available Vitals Date Recorded Body height Body mass index (BMI) Body weight Heart rate Systolic blood pressure Diastolic blood pressure Provider Name and Address Organization Details Last Updated DateTime 4 167.64 cm 29.9 kg/m2 78260.5 9 g 125 /min 128 mm[Hg] 76 mm[Hg] Fanta Mace [facility] 4 14:59:13 Social History Question Answer Notes LastModified by Organizat ion Details LastModified Time Tobacco Smoking Status [facility] 09:40:01 What Is Your Level Of Alcohol Consumption? None [email or web address] Information not available 02/17/2021 What Is Your Level Of Caffeine Consumption? Moderate Information not available 02/17/2021 What Was The Date Of Your Most Recent Tobacco Screening? 09/22/2021 [email or web address] Information not available 09/22/2021 Do You Use Any Illicit Or Recreational Drugs? No Information not available 02/17/2021 Has Tobacco Cessation Counseling Been Provided? No [email or web address] Information not available 02/17/2021 Do You Or Have You Ever Used Any Other Forms Of Tobacco Or Nicotine? No Information not available 02/17/2021 Sex: Female Functional Status None recorded. Mental Status None recorded. Family History Relationship Description Onset Age of this Age Resolved Age Notes LastModified by Organization Details LastModified Time Father Diabetes mellitus [email or web address] Not available 2020 09:39:02 Father Family history of malignant neoplasm [email or web address] Not available 2020 09:39:45 Maternal Grandmother Family history of stroke Not available 2020 09:39:27 Medical History No medical history recorded. Gynecological HistoryNo gynecological history recorded. Obstetrics History GPAL:G 0 P 0 0 0 0 Immunizations Vaccine Type Date Status Note Provider Nam e and Address Organization Details Recorded Time Influenza, split virus, quadrivalent, preservative 2 completed Honey Rodri [facility] 01/09/2024 14:56:25 Influenza, recombinant, quadrivalent, PF 0 completed Honey Rodri [facility] 01/09/2024 14:56:25 Influenza, live, trivalent, intranasal 3 completed Honey Rodri [facility] 01/09/2024 14:56:25 Tdap 8 completed Honey Rodri [facility] 01/09/2024 14:56:25 Pneumococcal conjugate PCV 13 8 completed Honey Rodri [facility] 01/09/2024 14:56:25 meningococcal MCV4P 8 completed Honey Rodri [facility] 01/09/2024 14:56:25 Influenza, split virus, quadrivalent, PF 4 completed Honey Rodri [facility] 01/09/2024 14:56:25 Influenza, split virus, quadrivalent, PF 9 completed Honey Rodri [facility] 01/09/2024 14:56:25 COVID-19, mRNA, LNP-S, PF, 100 mcg/0.5mL dose or 50 mcg/0.25mL dose 1 completed Honey Rodri [facility] 01/09/2024 14:56:25 COVID-19, mRNA, LNP-S, PF, 100 mcg/0.5mL dose or 50 mcg/0.25mL dose 1 completed Honey Rodri [facility] 01/09/2024 14:56:25 Past Encounters Encounter ID Performer Location Encounter Start Date Encounter Closed Date Diagnosis/Indication Diagnosis SNOMED-CT Code Diagnosis ICD10 Code [id number] ERIC PRECIADO APRN [facility] [address] [place] [address] 01/09/2024 14:50:09 01/09/2024 15:30:56 Uncontrolled type 2 diabetes mellitus 311166371 E11.65 Mixed hyperlipidemia 267 099881 E78.2 Peripheral neuropathy due to type 2 diabetes mellitus 0655110375 107 E11.42 Hypoglycem ia due to type 2 diabetes mellitus 1304086644 26243 E11.649 Hypertriglyceridemia 302 771641 E78.1 Health Concerns Section Related Observation LastModified by Organization Detai ls LastModified Time None Recorded Concern Status LastModified by Organization Details LastModified Time None Recorded Payers Encounter Date Sequence Insurance Name Policy Number Policy Mccarty Covered Member ID Mccarty Member ID Guarantor Name 01/09/2024 1 [place] [id number] Lamine Garcia [id number] Olya Garcia Notes Date Note Type [...] (only taking sliding scale currently d/t limited diet)[id number] 50=9uMounjaro 10mg qwk No recent episodes of [...] {{Yes* No}}Hyperlipi demia: {{Yes* No}} ERIC PRECIADO, RADIO ASSEMBLER [address] [place], [address], [facility] 01/09/2024 16:02:55 OBGyn Episode No OBEpisode recorded.
--- OUTSIDE RECORDS SUMMARY | 2024-04-09 19:13 | XMS_ITS | Data Portability ---
Author Organization [facility] Elena c, SILVERIOS SHOREWOOD CLOSED Address [address] [facility] [address] [place] [address] Care Team Providers Care Case Management Specialist Name Role Phone JESS MAHMOOD Primary Care Provider [phone] Assessment No assessment recorded. Plan of Treatment Reminders Order Date Submit Date Provider Last Modified By Organization Details Last Modified Time Details Appointments RECHECK 2023 01:45P M ERIC PRECIADO HADOOP ADMINISTRATOR Not available Not available Not available DERMATOL OGY VISIT 2024 01:00P M OLIVER SCHMIDT MD Not available Not available Not available Lab glucose, fingerst ick, blood 2023 024 [email or web address] 8 [facility] , [address] [place] [address], [address], 06/27/2023 13:38:37 hemoglob in A1C, fingerst ick 2023 024 [email or web address] 8 [facility] , [address] [place] [address], [address], 06/27/2023 13:38:36 glucose, fingerst ick, blood 2023 024 [email or web address] 8 [facility] , [address] [place] [address], [address], 01/09/2024 15:29:36 hemoglob in A1C, fingerst ick 2023 024 [email or web address] 8 [facility] , [address] [place] [address], [address], 01/09/2024 15:29:38 CBC w/ auto diff 2023 024 [facility], [address] [place] [address], [address], 02/11/2024 20:50:02 CMP, serum or plasma 2023 024 [facility], [address] [place] [address], [address], 02/11/2024 19:51:15 urinalys is, complete 2023 [facility], [address] [place] [address], [address], 02/11/2024 19:53:32 CBC w/ auto diff [address], [address] [place] [address], [address], 04/04/2024 13:13:57 CMP, serum or plasma [address], [address] [place] [address], [address], 04/04/2024 13:13:58 ESR (erythro cyte sediment ation rate), blood [address] [facility], [address] [place] [address], [address], 04/04/2024 13:13:58 ldh, serum or plasma [address], [address] [place] [address], [address], 04/04/2024 13:13:58 Referral hematolo gist/onc ologist referral 2023 ENRICO Peter MD, [address], [address], [place], [address], 03/24/2024 14:24:31 Procedures None recorded . Surgeries None recorded . Imaging None recorded . Medication Orders fenofibr ate 160 mg tablet 2023 024 [email or web address] 8 [facility], [address], [address], 06/27/2023 13:38:35 Gvoke HypoPen 2-Pack 1 mg/0.2 mL subcutan eous auto-inj nicolás 2023 024 [id number] 8 [facility], [address], [address], 06/27/2023 13:38:35 Humalog KwikPen (U-100) Insulin 100 unit/mL subcutan eous 2023 024 [email or web address] 8 [facility], [address], [address], 06/27/2023 13:38:34 Mounjaro 7.5 mg/0.5 mL subcutan eous pen injector 2023 024 [facility], [address], [address], 01/09/2024 15:09:51 Mounjaro 10 mg/0.5 mL subcutan eous pen injector 2023 024 [facility], [address], [address], 01/09/2024 15:29:44 Toujeo Max U-300 SoloStar 300 unit/mL (3 mL) subcutan eous insulin pen 2023 024 [facility]91, [address], [address], 01/09/2024 15:29:46 ceftriax one 500 mg solution for injectio n 2023 [email or web address] Not available 03/24/2024 13:57:18 Augmenti n 875 mg-125 mg tablet 2023 [facility], [address] [place], [address], 03/24/2024 13:57:19 prometha zine 12.5 mg tablet 2023 [facility], [address] [place], [address], 03/07/2024 11:24:34 Patient TargetsNo targets recorded. Patient InstructionsNo instructions recorded. Reason for Referral Referring Physician: Brian Hoyt, Internal Medicine, Encounter Date: 03/07/2024 Results Created Date Observation Date Name Description Value Unit Range Abnormal Flag Note LastModifiedBy Organization Detail LastModifiedTime 06/27/1906/27/2023 hemog lobin A1C, finge rstic k hemoglobin A1C % 7.1 % 4.0 - 5.6 Not Available [facility] [address], [address], 06/26/2023 12:48:48 06/27/19 24 06/27/2023 gluco se, finge rstic k, blood glucose, fingerstick 77 mg/dL 70 - 100 Not Available [facility] [address], [address], 06/26/2023 12:48:48 01/09/20 24 01/09/2024 hemog lobin A1C, finge rstic k hemoglobin A1C % 10.8 % 4.0 - 5.6 Not Available [facility] [address], [address], 01/08/2024 08:24:06 01/09/20 24 01/09/2024 gluco se, finge rstic k, blood glucose, fingerstick 303 mg/dL 70 - 100 Not Available [facility] [place] [address] [place] [address], [address], 01/08/2024 08:24:06 02/11/20 24 02/11/2024 COMP. METAB OLIC PANEL glucose 230 mg/dL 74-100 high Not Available [facility] [address] [place] [address], [address], 02/11/2024 19:51:15 02/11/20 24 02/11/2024 COMP. METAB OLIC PANEL blood urea nitrogen 12 mg/dL 6-20 normal Not Available [facility] [address] [place] [address], [address], 02/11/2024 19:51:15 02/11/20 24 02/11/2024 COMP. METAB OLIC PANEL creatinine 0.60 mg/dL 0.50-0 .95 normal Not Available [facility] [address] [place] [address], [address], 02/11/2024 19:51:15 02/11/20 24 02/11/2024 COMP. METAB OLIC PANEL BUN/creatini ne ratio 20 (calc ) 10-20 normal Not Available [facility] [address] [place] [address], [address], 02/11/2024 19:51:15 02/11/20 24 02/11/2024 COMP. METAB OLIC PANEL sodium 136 mmol/ L 136-14 5 normal Not Available [facility] [address] [place] [address], [address], 02/11/2024 19:51:15 02/11/20 24 02/11/2024 COMP. METAB OLIC PANEL potassium 4.0 mmol/ L 3.4-5. 0 normal Not Available [facility] [address] [place] [address], [address], 02/11/2024 19:51:15 02/11/20 24 02/11/2024 COMP. METAB OLIC PANEL chloride 101 mmol/ L 98-107 normal Not Available [facility] [address] [place] [address], [address], 02/11/2024 19:51:15 02/11/20 24 02/11/2024 COMP. METAB OLIC PANEL carbon dioxide 19 mmol/ L 22-31 low Not Available [facility] [address] [place] [address], [address], 02/11/2024 19:51:15 02/11/2002/11/2024 COMP. METAB OLIC PANEL anion gap 16 (calc ) 7-25 normal Not Available [facility] [address] [place] [address], [address], 02/11/2024 19:51:15 02/11/20 24 02/11/2024 COMP. METAB OLIC PANEL calcium 9.7 mg/dL 8.6-10 .2 normal Not Available [facility] [address] [place] [address], [address], 02/11/2024 19:51:15 02/11/20 24 02/11/2024 COMP. METAB OLIC PANEL total protein 7.7 g/dL 6.4-8. 3 normal Not Available [facility] [address] [place] [address], [address], 02/11/2024 19:51:15 02/11/20 24 02/11/2024 COMP. METAB OLIC PANEL albumin 4.0 g/dL 3.5-5. 2 normal Not Available [facility] [address] [place] [address], [address], 02/11/2024 19:51:15 02/11/20 24 02/11/2024 COMP. METAB OLIC PANEL globulin 3.7 1.5-4. 5 normal Not Available [facility] [address] [place] [address], [address], 02/11/2024 19:51:15 02/11/20 24 02/11/2024 COMP. METAB OLIC PANEL albumin/glob ulin ratio 1.1 (calc ) 1.1-2. 5 normal Not Available [facility] [address] [place], [address], 02/11/2024 19:51:15 02/11/20 24 02/11/2024 COMP. METAB OLIC PANEL bilirubin, total 0.3 mg/dL 0.1-1. 2 normal Not Available [facility] [address] [place], [address], 02/11/2024 19:51:15 02/11/2002/11/2024 COMP. METAB OLIC PANEL alkaline phosphatase 105 U/L 30-121 normal Not Available [facility] [address] [place] [address], [address], 02/11/2024 19:51:15 02/11/20 24 02/11/2024 COMP. METAB OLIC PANEL AST 11 U/L 0-32 normal Not Available [facility] [address] [place] [address], [address], 02/11/2024 19:51:15 02/11/20 24 02/11/2024 COMP. METAB OLIC PANEL ALT 10 U/L 0-33 normal Not Available [facility] [address] [place] [address], [address], 02/11/2024 19:51:15 02/11/20 24 02/11/2024 COMP. METAB [...] s/KDO QI/gf r_cal culat orPed Not Available [facility] [address] [place], [address], 02/11/2024 19:51:15 02/11/2002/11/2024 URINA LYSIS color Rhea normal Not Available [facility] [address] [place], [address], 02/11/2024 19:53:32 02/11/2002/11/2024 URINA LYSIS appearance Light turbid normal Not Available [facility] [address] [place], [address], 02/11/2024 19:53:32 02/11/2002/11/2024 URINA LYSIS glucose 250 mg/dL normal abnormal Not Available [facility] [address] [place], [address], 02/11/2024 19:53:32 02/11/2002/11/2024 URINA LYSIS bilirubin Negati ve mg/dL negati ve normal Not Available [facility] [address] [place], [address], 02/11/2024 19:53:32 02/11/2002/11/2024 URINA LYSIS ketone 5 mg/dL negati ve abnormal Not Available [facility] [address] [place], [address], 02/11/2024 19:53:32 02/11/2002/11/2024 URINA LYSIS specific gravity 1.040 1.003- 1.035 high Not Available [facility] [address] [place], [address], 02/11/2024 19:53:32 02/11/2002/11/2024 URINA LYSIS blood 25 /uL negati ve abnormal Not Available [facility] [address] [place], [address], 02/11/2024 19:53:32 02/11/20 24 02/11/2024 URINA LYSIS pH 5 5.0 - 8.0 normal Not Available [facility] [address] [place] [address], [address], 02/11/2024 19:53:32 02/11/20 24 02/11/2024 URINA LYSIS protein 15 mg/dL negati ve abnormal Not Available [facility] [address] [place] [address], [address], 02/11/2024 19:53:32 02/11/2002/11/2024 URINA LYSIS urobilinogen Normal mg/dL normal normal Not Available [facility] [address] [place] [address], [address], 02/11/2024 19:53:32 02/11/2002/11/2024 URINA LYSIS nitrite Negati ve negati ve normal Not Available [facility] [address] [place] [address], [address], 02/11/2024 19:53:32 02/11/2002/11/2024 URINA LYSIS leukocyte esterase 100 /uL negati ve abnormal Not Available [facility] [address] [place] [address], [address], 02/11/2024 19:53:32 02/11/2002/11/2024 URINA LYSIS mucus, urine 2+ /lpf not establ ished normal Not Available [facility] [address] [place] [address], [address], 02/11/2024 19:53:32 02/11/2002/11/2024 URINA LYSIS WBC, urine > 30 0-5/hp f abnormal Not Available [facility] [address] [place] [address], [address], 02/11/2024 19:53:32 02/11/2002/11/2024 URINA LYSIS RBC, urine 3-10 0-2/hp f abnormal Not Available [facility] [address] [place] [address], [address], 02/11/2024 19:53:32 02/11/20 24 02/11/2024 URINA LYSIS squamous epi. cells > 10 0-5/hp f abnormal Not Available [facility] [address] [place] [address], [address], 02/11/2024 19:53:32 02/11/2002/11/2024 URINA LYSIS bacteria 2+ /hpf none seen abnormal Not Available [facility] [address] [place] [address], [address], 02/11/2024 19:53:32 02/11/2002/11/2024 URINA LYSIS yeast, urine Many /hpf none seen abnormal Not Available [facility] [address] [place] [address], [address], 02/11/2024 19:53:32 02/11/2002/11/2024 COMPL ETE BLOOD COUNT white blood cells 14.5 10*3/ uL 3.8-10 .8 high Not Available [facility] [address] [place] [address], [address], 02/11/2024 20:50:01 02/11/2002/11/2024 COMPL ETE BLOOD COUNT red blood cells 4.85 10*6/ uL 3.80-5 .20 normal Not Available [facility] [address] [place] [address], [address], 02/11/2024 20:50:01 02/11/2002/11/2024 COMPL ETE BLOOD COUNT hemoglobin 15.1 g/dL 12.0-1 6.0 normal Not Available [facility] [address] [place] [address], [address], 02/11/2024 20:50:01 02/11/2002/11/2024 COMPL ETE BLOOD COUNT hematocrit 44.7 % 35.0-4 7.0 normal Not Available [facility] [address] [place] [address], [address], 02/11/2024 20:50:01 02/11/20 24 02/11/2024 COMPL ETE BLOOD COUNT MCV 92 fL 80-100 normal Not Available [facility] [address] [place] [address], [address], 02/11/2024 20:50:01 02/11/2002/11/2024 COMPL ETE BLOOD COUNT MCH 31 pg 26-35 normal Not Available [facility] [address] [place] [address], [address], 02/11/2024 20:50:01 02/11/2002/11/2024 COMPL ETE BLOOD COUNT MCHC 34 g/dL 32-36 normal Not Available [facility] [address] [place] [address], [address], 02/11/2024 20:50:01 02/11/2002/11/2024 COMPL ETE BLOOD COUNT RDW 14.7 % 11.0-1 5.0 normal Not Available [facility] [address] [place] [address], [address], 02/11/2024 20:50:01 02/11/2002/11/2024 COMPL ETE BLOOD COUNT MPV 8.9 fL 6.2-10 .5 normal Not Available [facility] [address] [place] [address], [address], 02/11/2024 20:50:01 02/11/2002/11/2024 COMPL ETE BLOOD COUNT platelet count 518 10*3/ uL 150-40 0 high Not Available [facility] [address] [place] [address], [address], 02/11/2024 20:50:01 02/11/2002/11/2024 COMPL ETE BLOOD COUNT neutrophil,a bsolute 7.2 10*3/ uL 1.6-8. 4 normal Not Available [facility] [address] [place] [address], [address], 02/11/2024 20:50:01 02/11/20 24 02/11/2024 COMPL ETE BLOOD COUNT lymphocyte,a bsolute 5.4 10*3/ uL 0.4-5. 1 high Not Available [facility] [address] [place] [address], [address], 02/11/2024 20:50:01 02/11/2002/11/2024 COMPL ETE BLOOD COUNT monocyte,abs olute 1.2 10*3/ uL 0.0-1. 2 normal Not Available [facility] [address] [place] [address], [address], 02/11/2024 20:50:01 02/11/20 24 02/11/2024 COMPL ETE BLOOD COUNT eosinophil,a bsolute 0.2 10*3/ uL 0.0-0. 8 normal Not Available [facility] [address] [place] [address], [address], 02/11/2024 20:50:01 02/11/20 24 02/11/2024 COMPL ETE BLOOD COUNT basophil,abs olute 0.4 10*3/ uL 0.0-0. 3 high Not Available [facility] [address] [place] [address], [address], 02/11/2024 20:50:01 02/11/20 24 02/11/2024 COMPL ETE BLOOD COUNT % neutrophils 49.9 % 42.0-7 8.0 normal Not Available [facility] [address] [place] [address], [address], 02/11/2024 20:50:01 02/11/20 24 02/11/2024 COMPL ETE BLOOD COUNT % lymphocytes 37.3 % 11.0-4 7.0 normal Not Available [facility] [address] [place], [address], 02/11/2024 20:50:01 02/11/20 24 02/11/2024 COMPL ETE BLOOD COUNT % monocytes 8.5 % 0.0-11 .0 normal Not Available [facility] [address] [place] [address], [address], 02/11/2024 20:50:01 02/11/20 24 02/11/2024 COMPL ETE BLOOD COUNT % eosinophils 1.4 % 0.0-7. 0 normal Not Available [facility] [address] [place] [address], [address], 02/11/2024 20:50:01 02/11/20 24 02/11/2024 COMPL ETE BLOOD COUNT % basophils 2.9 % 0.0-3. 0 normal Not Available [facility] [address] [place] [address], [address], 02/11/2024 20:50:01 02/11/20 24 02/11/2024 COMPL ETE BLOOD COUNT nucleated red cells 0.1 % 0.0-0. 9 normal Not Available [facility] [address] [place] [address], [address], 02/11/2024 20:50:01 02/11/20 24 02/11/2024 COMPL ETE BLOOD COUNT nucleated RBCs, absolute 0.02 10*3/ uL not estab. normal Not Available [facility] [address] [place] [address], [address], 02/11/2024 20:50:01 02/22/20 24 02/19/2024 XR, chest [...] Recorded Time High glucose level in blood 633993669 Active 2020 Not Available [facility] 3 06:18:45 Depressive disorder 16381633 Active 2023 BRIAN DE, DO [address] [place], [address] , [facility] 4 11:08:24 Anxiety 51418192 Active 2023 BRIAN DE, DO [address] [place], [address] , [facility] 4 11:08:34 Cervical lymphadenopat hy 024100181 Active 2023 BRIAN DE, DO [address] [place], [address] , [facility] 4 14:17:23 Chronic tonsillitis 64814304 Active 2023 BRIAN DE, DO [address] [place], [address] , [facility] 4 14:17:24 Problem Notes None recorded. Procedures Surgical History Date Name Laterality Status Provider Name and Address Organization Details Recorded Time procedure on spleen completed [facility] 02/17/2021 09:40:19 procedure on gallbladder completed [facility] 02/17/2021 09:40:30 endoscopic procedure on spleen completed [facility] 02/17/2021 09:40:59 procedure on appendix completed [facility] 02/17/2021 09:41:08 Imaging Results Imaging Date Name [...] Not Available No t Available Dexcom G7 [employer] USE DIRECTED active Not Available Not Available No t Available Dexcom G7 Sensor device CHANGE SENSOR EVERY 10 DAYS active Not Available Not Available No t Available Vitals Date Recorded Body height Body mass index (BMI) Body weight Heart rate Systolic blood pressure Diastolic blood pressure Provider Name and Address Organization Details Last Updated DateTime 4 167.64 cm 33.7 kg/m2 57955.8 1 g 74 /min 126 mm[Hg] 72 mm[Hg] [facility] 11:[facility]40 Date Recorded Body height Body mass index (BMI) Body weight Heart rate Systolic blood pressure Diastolic blood pressure Provider Name and Address Organization Details Last Updated DateTime 4 167.64 cm 29.9 kg/m2 93492.5 9 g 125 /min 128 mm[Hg] 76 mm[Hg] Fanta Mace [facility] 4 14:59:13 Date Recorded Body height Body mass index (BMI) Body weight Heart rate Oxygen saturation Oxygen saturation in Arterial blood by Pulse oximetry Systolic blood pressure Diastolic blood pressure Provider Name and Address Organization Details Last Updated DateTime 4 167.64 cm 28.8 kg/m2 23704.2 4 g 114 /min 97 % 97 % 122 mm[Hg] 72 mm[Hg] [facility] 4 11:02:16 Date Recorded Body height Body mass index (BMI) Body weight Heart rate Oxygen saturation Oxygen saturation in Arterial blood by Pulse oximetry Body temperature Systolic blood pressure Diastolic blood pressure Provider Name and Address Organization Details Last Updated DateTime 4 167.64 cm 28.4 kg/m2 73062.6 6 g 103 /min 96 % 96 % 98.7 [degF] 116 mm[Hg] 70 mm[Hg] [facility] 4 11:04:27 Date Recorded Body height Body mass index (BMI) Body weight Heart rate Oxygen saturation Oxygen saturation in Arterial blood by Pulse oximetry Systolic blood pressure Diastolic blood pressure Provider Name and Address Organization Details Last Updated DateTime 4 167.64 cm 28.1 kg/m2 15433.1 7 g 97 /min 95 % 95 % 112 mm[Hg] 72 mm[Hg] [facility] 4 13:59:22 Social History Question Answer Notes LastModified by Organizat ion Details LastModified Time Tobacco Smoking Status [email or web address] 09:40:01 What Is Your Level Of Alcohol Consumption? None [email or web address] Information not available 02/17/2021 What Is Your Level Of Caffeine Consumption? Moderate [email or web address] Information not available 02/17/2021 What Was The Date Of Your Most Recent Tobacco Screening? 09/22/2021 [email or web address] Information not available 09/22/2021 Do You Use Any Illicit Or Recreational Drugs? No Information not available 02/17/2021 Has Tobacco Cessation Counseling Been Provided? No [email or web address] Information not available 02/17/2021 Do You Or Have You Ever Used Any Other Forms Of Tobacco Or Nicotine? No [email or web address] Information not available 02/17/2021 Sex: Female Functional [...] virus, quadrivalent, preservative 2 completed [facility] 01/09/2024 14:56:25 Influenza, recombinant, quadrivalent, PF 0 completed [facility] 01/09/2024 14:56:25 Influenza, live, trivalent, intranasal 3 completed [facility] 01/09/2024 14:56:25 Tdap 8 completed [facility] Rod[facility] 01/09/2024 14:56:25 Pneumococcal conjugate PCV 13 8 completed [facility] 01/09/2024 14:56:25 meningococcal MCV4P 8 completed [facility] 01/09/2024 14:56:25 Influenza, split virus, quadrivalent, PF 4 completed [facility] Rod[facility] 01/09/2024 14:56:25 Influenza, split virus, quadrivalent, PF 9 completed [facility] Rod[facility] 01/09/2024 14:56:25 COVID-19, mRNA, LNP-S, PF, 100 mcg/0.5mL dose or 50 mcg/0.25mL dose 1 completed [facility]/09/2024 14:56:25 COVID-19, mRNA, LNP-S, PF, 100 mcg/0.5mL dose or 50 mcg/0.25mL dose completed [facility] 01/09/2024 14:56:25 Past Encounters Encounter ID Performer Location Encounter Start Date Encounter Closed Date Diagnosis/Indication Diagnosis SNOMED-CT Code Diagnosis ICD10 Code [id number] [place] [address] [place] [phone] 02/17/2021 09:28:09 02/18/2021 15:33:16 Uncontrolled type 2 diabetes mellitus 506644933 E11.65 Hyperlipidemia 86111091 E78.5 Peripheral neuropathy due to type 2 diabetes mellitus 1818565665 107 E11.42 [id number] BOWEN PINZON DO [facility] [address] [place] [address] 03/10/2021 10:09:31 03/16/2021 16:00:54 Uncontrolled type 2 diabetes mellitus [id number] E11.65 [id number] BOWEN PINZON DO [facility] [address] [place], [place] [id number] 04/28/2021 08:49:23 04/28/2021 12:28:06 Uncontrolled type 2 diabetes mellitus 998293056 E11.65 Mixed hyperlipidemia 267 495016 E78.2 Peripheral neuropathy due to type 2 diabetes mellitus 6946177526 107 E11.42 [id number] BOWEN JEROMY DO [facility] [place] [address] [place] [id number] 08/25/2021 09:55:13 08/25/2021 10:51:50 Uncontrolled type 2 diabetes mellitus [id number] E11.65 Hypertriglyceridemia 302 661619 E78.2 Diabetic p eripheral neuropathy 342363203 E11.40 [id number] BOWEN PINZON DO [facility] [address] [place] [id number] 09/22/2021 09:28:49 09/22/2021 10:08:36 Uncontrolled type 2 diabetes mellitus [id number] E11.65 [id number] BOWEN PINZON DO [facility] [address] [place] [id number] 03/20/2022 10:23:58 03/20/2022 11:14:35 Uncontrolled type 2 diabetes mellitus [id number] E11.65 Mixed hyperlipidemia 267 675368 E78.2 [id number] ERIC PRECIADO APRN [facility] [address] [place] [id number] 08/02/2022 09:09:42 08/02/2022 09:57:46 Uncontrolled type 2 diabetes mellitus 634247450 E11.65 Mixed hyperlipidemia 267 119947 E78.2 Peripheral neuropathy due to type 2 diabetes mellitus 0679429688 107 E11.42 [id number] ERIC PRECIADO APRN [facility] [address] [place] [id number] 06/27/2023 11:35:01 06/27/2023 12:45:31 Uncontrolled type 2 diabetes mellitus 512217889 E11.65 Mixed hyperlipidemia 267 913033 E78.2 Peripheral neuropathy due to type 2 diabetes mellitus 4424626711 107 E11.42 Hypoglycem ia due to type 2 diabetes mellitus 6192585763 15251 E11.649 Hypertriglyceridemia 302 225680 E78.1 [id number] ERIC PRECIADO APRN ENDOCRINO LOGY [address] [place] [address] 01/09/2024 14:50:09 01/09/2024 15:30:56 Uncontrolled type 2 diabetes mellitus 388497101 E11.65 Mixed hyperlipidemia 267 959686 E78.2 Peripheral neuropathy due to type 2 diabetes mellitus 0120693972 107 E11.42 Hypoglycem ia due to type 2 diabetes mellitus 0348215254 54790 E11.649 Hypertriglyceridemia 302 573443 E78.1 [id number] BRIAN DE, DO PRIMARY CARE [address] [place] [address] 02/11/2024 10:29:20 02/11/2024 11:25:08 History of splenectomy 659039520 Z90.81 Uncontroll ed type 2 diabetes mellitus 430738540 E11.65 Anxiety 42027871 F41.9 Depressive disorder 3548 9007 F32.A Chronic tonsillitis 9097 9004 J35.01 Polyneuropathy 35533295 G62.9 Illness 10552584 R69 [id number] BRIAN DE, DO PRIMARY CARE [address] [place] [address] 03/07/2024 10:53:49 03/07/2024 12:09:21 Chronic tonsillitis 01778858 J35.01 Cervical lymphadenopathy 743034020 R59.0 Uncontroll ed type 2 diabetes mellitus 297517420 E11.65 Abnormal weight loss 267 883952 R63.4 [id number] BRIAN MORALES LL, DO PRIMARY CARE [facility] [address] [place] [address] 03/24/2024 13:52:01 03/24/2024 14:29:03 Chronic tonsillitis 03494500 J35.01 Cervical lymphadenopathy 145528263 R59.0 Uncontroll ed type 2 diabetes mellitus 376604028 E11.65 Recurrent major depression 37257116 F33.9 Health Concerns Section Related Observation LastModified by Organization Detai ls LastModified Time None Recorded Concern Status LastModified by Organization Details LastModified Time None Recorded Advance Directives Directive None Recorded Payers Encounter Date Sequence Insurance Name Policy Number Policy Mccarty Covered Member ID Mccarty Member ID Guarantor Name 06/27/2023 1 [place] [id number] Lamine L Garcia [id number] Olya R Garcia 01/09/2024 1 [place] [id number] Lamine L Garcia [id number] Olya R Garcia 02/11/2024 1 [place] [id number] Lamine L Garcia [id number] 03 Olya R Garcia 03/07/2024 1 [place] [id number] Lamine L Garcia [id number] Olya R Garcia 03/24/2024 1 [place] [id number] Lamine L Garcia [id number] 03 Olya R Garcia Notes Date Note [...] {{Yes* No}}Hyperlipid emia: {{Yes* No}} ERIC PRECIADO, HADOOP ADMINISTRATOR [address] [place], [address], [facility] 06/27/2023 13:41:49 01/09/2024 text/html This [...] (only taking sliding scale currently d/t limited diet)[id number] =9uMounjaro 10mg qwk No recent episodes of [...] {{Yes* No}}Hyperlipid emia: {{Yes* No}} ERIC PRECIADO, RIMA [address] [place], [address], [facility] 01/09/2024 16:02:55 02/11/2024 text/html Patient is 43-year-old female here for new patient evaluation. She has poorly controlled diabetes, is on Mounjaro, basal bolus insulin, managed by screwdown operator, last A1c was pretty high. She has [...] tonsils taken out or not Works at [employer] no smoke.no alcohol BRIAN HOYT, [address] [place], [address], [facility] 02/11/2024 12:49:37 03/07/2024 text/html Patient is 43-year-old female here for acute visit, she has poorly controlled diabetes, has had recurrent infections, pneumonia, for which recently had hospitalization, she has this weird cervical lymphadenopathy, has been evaluated by ENT at [facility], follow-up CT looked improved, ENT doctor [...] significant pain. She feels dehydrated BRIAN HOYT, [address] [place], [address], [facility] 03/07/2024 12:56:05 03/24/2024 text/html Patient [...] continues to be difficult to manage BRIAN HOYT DO [address] [place], [address], [facility] 03/24/2024 17:41:25 OBGyn Episode No OBEpisode recorded.
--- OUTSIDE RECORDS SUMMARY | 2024-04-09 19:13 | XMS_ITS | Continuity of Care Document ---
Author Organization [facility], [facility] [place] Address [address] [place] [address] Care Team Providers Care E Commerce Marketing Manager Name Role Phone JESS MAHMOOD Primary Care Provider [phone] Assessment No assessment recorded. Plan of Treatment Reminders Order Date Submit Date Provider Last Modified By Organization Details Last Modified Time Details Appointments RECHECK 2023 01:45P M ERIC PRECIADO VEHICLE SAFETY INSPECTOR Not available Not available Not available DERMATOLO GY VISIT 2024 01:00P M OLIVER SCHMIDT MD Not available Not available Not available Lab CBC w/ auto diff 2023 [facility], [address] [place] [address], [phone], 02/11/2024 20:50:02 CMP, serum or plasma 2023 [facility], [address] [place] [address], [phone], 02/11/2024 19:51:15 urinalysi s, complete 2023 [facility], [address] [place] [address], [phone], 02/11/2024 19:53:32 Referral None recorded. Procedures None recorded. Surgeries [...] Recorded Time High glucose level in blood 751826124 Active 2020 Not Available [facility] 3 06:18:45 Depressive disorder 46830189 Active 2023 BRIAN DE, DO [address] [place], [place], [address] [place] [address] , [facility] 4 11:08:24 Anxiety 87246946 Active 2023 BRIAN DE, DO [address] [place], [place], [address] [place] [address] , [facility] 4 11:08:34 Cervical lymphadenopat hy 759034210 Active 2023 [place] [address] [place] [address], [address] [place] [address] , [facility] 4 14:17:23 Chronic tonsillitis 39321346 Active 2023 BRIAN DE, DO [address] [place], [place], [address] [place] [address] , [facility] 4 14:17:24 Problem Notes None recorded. Procedures Surgical History Date Name Laterality Status Provider Name and Address Organization Details Recorded Time procedure on spleen completed [facility] 02/17/2021 09:40:19 procedure on gallbladder completed [facility] 02/17/2021 09:40:30 endoscopic procedure on spleen completed [facility] 02/17/2021 09:40:59 procedure on appendix completed [facility] 02/17/2021 09:41:08 Imaging Results None [...] Not Available Not Available No t Available Bright [employer] Ultra Test strips USE 1 STRIP TO [...] 2023 active Not Available Not Available Not Sarabjit saenz Dexcom G6 Transmitter device REPLACE EVERY 3 [...] Not Available No t Available Dexcom G7 Analysis Manager USE DIRECTED active Not Available Not Available [...] Updated DateTime 4 167.64 cm 28.8 kg/m2 00101.2 4 g 114 /min 97 % 97 % 122 mm[Hg] 72 mm[Hg] Karly Hinkle [facility] 11:02:16 Social History Question Answer Notes LastModified by Organizat ion Details LastModified Time Tobacco Smoking Status Never Smoker Natividad nieto, [facility] 02/17/2021 09:40:01 What Is Your Level Of Alcohol Consumption? None [email or web address] Information not available 02/17/2021 What Is Your Level Of Caffeine Consumption? Moderate Information not available 02/17/2021 What Was The Date Of Your Most Recent Tobacco Screening? 09/22/2021 [email or web address] Information not available 09/22/2021 Do You Use Any Illicit Or Recreational Drugs? No [email or web address] Information not available 02/17/2021 Has Tobacco Cessation [...] Organization Details LastModified Time Father Diabetes mellitus [email or web address] Not available 2020 09:39:02 Father Family history of malignant neoplasm [email or web address] Not available 2020 09:39:45 Maternal Grandmother Family history of stroke [email or web address] Not available 2020 09:39:27 Medical History No medical history recorded. Gynecological HistoryNo gynecological history recorded. Obstetrics History GPAL:G 0 P 0 0 0 0 Immunizations Vaccine Type Date Status Note Provider Nam e and Address Organization Details Recorded Time Influenza, split virus, quadrivalent, preservative 2 completed Honey [facility] 01/09/2024 14:56:25 Influenza, recombinant, quadrivalent, PF 0 completed Honey Rodri [facility] 01/09/2024 14:56:25 Influenza, live, trivalent, intranasal 3 completed Honey Rodri [facility] 01/09/2024 14:56:25 Tdap 8 completed Honey Rodri [facility] 01/09/2024 14:56:25 Pneumococcal conjugate PCV 13 8 completed Honey Rodri [facility] 01/09/2024 14:56:25 meningococcal MCV4P 8 completed Honey Rodri [facility] 01/09/2024 14:56:25 Influenza, split virus, quadrivalent, PF 4 completed Honey Rodri null, [facility] 01/09/2024 14:56:25 Influenza, split virus, quadrivalent, PF 9 completed [facility] 01/09[facility]24 14:56:25 COVID-19, mRNA, LNP-S, PF, 100 mcg/0.5mL dose or 50 mcg/0.25mL dose 1 completed [facility] 01/09/2024 14:56:25 COVID-19, mRNA, LNP-S, PF, 100 mcg/0.5mL dose or 50 mcg/0.25mL dose 1 completed Honey Rodri [facility] 01/09/2024 14:56:25 Past Encounters Encounter ID Performer Location Encounter Start Date Encounter Closed Date Diagnosis/Indication Diagnosis SNOMED-CT Code Diagnosis ICD10 Code [id number] BRIAN MORALES , PRIMARY CARE [facility] [address] [place] [address] 02/11/2024 10:29:20 02/11/2024 11:25:08 History of splenectomy 104430404 Z90.81 Uncontroll ed type 2 diabetes mellitus 143715886 E11.65 Anxiety 96232277 F41.9 Depressive disorder 3548 9007 F32.A Chronic tonsillitis 9097 9004 J35.01 Polyneuropathy 32096088 G62.9 Illness 26158251 R69 Health Concerns Section Related Observation LastModified by Organization Detai ls LastModified Time None Recorded Concern Status LastModified by Organization Details LastModified Time None Recorded Payers Encounter Date Sequence Insurance Name Policy Number Policy Mccarty Covered Member ID Mccarty Member ID Guarantor Name 02/11/2024 1 [place] [id number] Lamine Garcia [id number] Olya Garcia Notes Date Note Type Note Provider Name and Address Organization Details Recorded Time 02/11/2024 text/html Patient is 43-year-old female here for new patient evaluation. She has poorly controlled diabetes, is on Mounjaro, basal bolus insulin, managed by bill clerk, last A1c was pretty high. She has [...] tonsils taken out or not Works at [employer] no smoke.no alcohol BRIAN SAUCEDA, DO [address] [place], [address], [facility] 02/11/2024 12:49:37 OBGyn Episode No OBEpisode recorded.
--- OUTSIDE RECORDS SUMMARY | 2024-04-09 19:13 | XMS_ITS | Continuity of Care Document ---
Author Organization [facility], [facility] [place] Address [address] [place] [address] Care Team Providers Care It Network Engineer Name Role Phone JESS MAHMOOD Primary Care Provider [phone] Assessment No assessment recorded. Plan of [...] Recorded Time High glucose level in blood 872350547 Active 2020 Not Available [facility] 06:18:45 Depressive disorder 41873066 Active 2023 BRIAN MORALES LL, DO [address] [place], [address] , [facility] 4 11:08:24 Anxiety 73285620 Active 2023 BRIAN DE, DO [address] [place], [address] , [facility] 4 11:08:34 Cervical lymphadenopat hy 474442414 Active 2023 BRIAN DE, DO [address] [place], [address] , [facility] 4 14:17:23 Chronic tonsillitis 23453058 Active 2023 BRIAN DE, DO [address] [place], [address] , [facility] 4 14:17:24 Problem Notes None recorded. Procedures Surgical History Date Name Laterality Status Provider Name and Address Organization Details Recorded Time procedure on spleen completed [facility] 02/17/2021 09:40:19 procedure on gallbladder completed [facility] 02/17/2021 09:40:30 endoscopic procedure on spleen completed [facility] 02/17/2021 09:40:59 procedure on appendix completed [facility] 02/17/2021 09:41:08 Imaging Results None recorded. [...] Not Available Not Available No t Available [employer] Ultra Test strips USE 1 STRIP TO [...] Not Available No t Available Dexcom G7 Pigment Grinder USE DIRECTED active Not Available Not Available [...] Updated DateTime 4 167.64 cm 28.1 kg/m2 82889.1 7 g 97 /min 95 % 95 % 112 mm[Hg] 72 mm[Hg] Karly Hinkle [facility] 4 13:59:22 Social History Question Answer Notes LastModified by Organizat ion Details LastModified Time Tobacco Smoking Status Never Smoker Natividad Florentin nieto, [facility] 02/17/2021 09:40:01 What Is Your Level Of Alcohol Consumption? None [email or web address] Information not available 02/17/2021 What Is Your Level Of Caffeine Consumption? Moderate [email or web address] Information not available 02/17/2021 What Was The Date Of Your Most Recent Tobacco Screening? 09/22/2021 [email or web address] Information not available 09/22/2021 Do You Use Any Illicit Or Recreational Drugs? No [email or web address] Information not available 02/17/2021 Has Tobacco Cessation Counseling Been Provided? No Information not available 02/17/2021 Do You Or Have You Ever Used Any Other Forms Of Tobacco Or Nicotine? No [email or web address] Information not available 02/17/2021 Sex: Female Functional Status None recorded. Mental Status None recorded. Family History Relationship Description Onset Age of this Age Resolved Age Notes LastModified by Organization Details LastModified Time Father Diabetes mellitus [email or web address] Not available 2020 09:39:02 Father Family history [...] virus, quadrivalent, preservative 2 completed [facility] 14:56:25 Influenza, recombinant, quadrivalent, PF 0 completed Honey Rodri [facility] 01/09/2024 14:56:25 Influenza, live, trivalent, intranasal 3 completed Honey Rodri [facility] 01/09/2024 14:56:25 Tdap 8 completed Honey Rodri [facility] 01/09/2024 14:56:25 Pneumococcal conjugate PCV 13 8 completed Honey Rodri [facility] 01/09/2024 14:56:25 meningococcal MCV4P 8 completed Honey Rodri [facility] 01/09/2024 14:56:25 Influenza, split virus, quadrivalent, PF 4 completed Honey Rodri [facility] 01/09/2024 14:56:25 Influenza, split virus, quadrivalent, PF 9 completed Honey Rodri [facility] 01/09/2024 14:56:25 COVID-19, mRNA, LNP-S, PF, 100 mcg/0.5mL dose or 50 mcg/0.25mL dose 1 completed Honey Rodri [facility] 01/09/2024 14:56:25 COVID-19, mRNA, LNP-S, PF, 100 mcg/0.5mL dose or 50 mcg/0.25mL dose 1 completed Honey Rodri [facility] 01/09/2024 14:56:25 Past Encounters Encounter ID Performer Location Encounter Start Date Encounter Closed Date Diagnosis/Indication Diagnosis SNOMED-CT Code Diagnosis ICD10 Code [id number] BRIAN ANDREW DE, DO PRIMARY CARE [facility] [address] [facility] [facility] [place] [address] 03/07/2024 10:53:49 03/07/2024 12:09:21 Chronic tonsillitis 69217211 J35.01 Cervical lymphadenopathy 263983518 R59.0 Uncontroll ed type 2 diabetes mellitus 242461568 E11.65 Abnormal weight loss 267 657921 R63.4 [id number] BRIAN ANDREW DE, DO PRIMARY CARE [facility] [address] [facility] [place] [address] 03/24/2024 13:52:01 03/24/2024 14:29:03 Chronic tonsillitis 42374010 J35.01 Cervical lymphadenopathy 923665002 R59.0 Uncontroll ed type 2 diabetes mellitus 882806929 E11.65 Recurrent major depression 70388293 F33.9 Health Concerns Section Related Observation LastModified by Organization Detai ls LastModified Time None Recorded Concern Status LastModified by Organization Details LastModified Time None Recorded Payers Encounter Date Sequence Insurance Name Policy Number Policy Mccarty Covered Member ID Mccarty Member ID Guarantor Name 03/24/2024 1 [place] [id number] Lamine Garcia [id number] Olya Garcia Notes Date Note Type [...] difficult to manage BRIAN SAUCEDA, DO [address] [facility] [place], [address], [place] [facility] 03/24/2024 17:41:25 OBGyn Episode No OBEpisode recorded.
--- OUTSIDE RECORDS SUMMARY | 2024-04-09 19:13 | XMS_ITS | Continuity of Care Document ---
Author Organization [facility], [facility] [place] Address [address] [place] [address] Care Team Providers Care Sheet Rock Hanger Name Role Phone JESS MAHMOOD Primary Care Provider [phone] Assessment No assessment recorded. Plan of Treatment Reminders Order Date Submit Date Provider Last Modified By Organization Details Last Modified Time Details Appointments RECHECK 2023 01:45P M ERIC PRECIADO CHIP CRUSHER OPERATOR Not available Not available Not available DERMATOLO GY VISIT 2024 01:00P M OLIVER SCHMIDT MD Not available Not available Not available Lab CBC w/ auto diff 2023 024 [email or web address] [facility], [address] [place] [address], [address], 04/04/2024 13:13:57 CMP, serum or plasma 2023 024 [email or web address] [facility], [address] [place] [address], [address], 04/04/2024 13:13:58 ESR (erythroc yte sedimenta tion rate), blood 2023 024 [email or web address] [facility], [address] [place] [address], [address], 04/04/2024 13:13:58 ldh, serum or plasma 2023 024 [email or web address] [facility], [address] [place] [address], [address], 04/04/2024 13:13:58 Referral hematolog ist/oncol ogist referral 2023 ENRICO Peter MD, [address] , [facility] [address], [address], 03/24/2024 14:24:31 Procedures None recorded. Surgeries None recorded. Imaging None recorded. Medication Orders ceftriaxo ne 500 mg solution for injection 2023 [email or web address] Not available 03/24/2024 13:57:18 Augmentin 875 mg-125 mg tablet 2023 [facility], [address], [address], 03/24/2024 13:57:19 promethaz ine 12.5 mg tablet 2023 [facility], [address], [address], 03/07/2024 11:24:34 Patient TargetsNo targets recorded. Patient [...] Recorded Time High glucose level in blood 742084286 Active 2020 Not Available [facility] 06:18:45 Depressive disorder 87260498 Active 2023 BRIAN MORALES LL, DO [address] [place], [address] , [facility] 4 11:08:24 Anxiety 89509815 Active 2023 [place] [address] [place] [address], [address] , [facility] 4 11:08:34 Cervical lymphadenopat hy 013850799 Active 2023 [place] [address] [place] [address], [address] , [facility] 4 14:17:23 Chronic tonsillitis 21023537 Active 2023 BRIAN DE, DO [address] [place] [address], [address] , [facility] 4 14:17:24 Problem Notes None recorded. Procedures Surgical History Date Name Laterality Status Provider Name and Address Organization Details Recorded Time procedure on spleen completed [facility] 02/17/2021 09:40:19 procedure on gallbladder completed [facility] 02/17/2021 09:40:30 endoscopic procedure on spleen completed [facility] 02/17/2021 09:40:59 procedure on appendix completed [facility] 02/17/2021 09:41:08 Imaging Results None recorded. [...] Not Available Not Available No t Available [employer] Ultra Test strips USE 1 STRIP TO [...] Not Available No t Available Dexcom G7 Broom Builder USE DIRECTED active Not Available Not Available [...] Updated DateTime 4 167.64 cm 28.4 kg/m2 76477.6 6 g 103 /min 96 % 96 % 98.7 [degF] 116 mm[Hg] 70 mm[Hg] Karly Manan [facility] 4 11:04:27 Social History Question Answer Notes LastModified by Organizat ion Details LastModified Time Tobacco Smoking Status Never Smoker Natividad Florentin nieto, [facility] 02/17/2021 09:40:01 What Is Your Level Of Alcohol Consumption? None [email or web address] Information not available 02/17/2021 What Is Your Level Of Caffeine Consumption? Moderate [email or web address] Information not available 02/17/2021 What Was The Date Of Your Most Recent Tobacco Screening? 09/22/2021 [email or web address] Information not available 09/22/2021 Do You Use Any Illicit Or Recreational Drugs? No [email or web address] Information not available 02/17/2021 Has Tobacco Cessation Counseling Been Provided? No [email or web address] Information not available 02/17/2021 Do You Or Have You Ever Used Any Other Forms Of Tobacco Or Nicotine? No [email or web address] Information not available 02/17/2021 Sex: Female Functional Status None recorded. Mental Status None recorded. Family History Relationship Description Onset Age of this Age Resolved Age Notes LastModified by Organization Details LastModified Time Father Diabetes mellitus [email or web address] Not available 2020 09:39:02 Father Family history of malignant neoplasm [email or web address] Not available 2020 09:39:45 Maternal Grandmother Family history of stroke [email or web address] Not available 2020 09:39:27 Medical History No medical history recorded. Gynecological HistoryNo gynecological history recorded. Obstetrics History GPAL:G 0 P 0 0 0 0 Immunizations Vaccine Type Date Status Note Provider Nam e and Address Organization Details Recorded Time Influenza, split virus, quadrivalent, preservative 2 completed [facility] 14:56:25 [...] Diagnosis/Indication Diagnosis SNOMED-CT Code Diagnosis ICD10 Code [id number] BRIAN ANDREW DE, DO PRIMARY CARE [place] [id number] [facility] [place] [address] 02/11/2024 10:29:20 02/11/2024 11:25:08 History of splenectomy 925865612 Z90.81 Uncontroll ed type 2 diabetes mellitus 360418605 E11.65 Anxiety 60467379 F41.9 Depressive disorder 3548 9007 F32.A Chronic tonsillitis 9097 9004 J35.01 Polyneuropathy 96875115 G62.9 Illness 19665560 R69 [id number] BRIAN DE, DO PRIMARY CARE [facility] [address] [facility] [place] [address] 03/07/2024 10:53:49 03/07/2024 12:09:21 Chronic tonsillitis 85254595 J35.01 Cervical lymphadenopathy 251506640 R59.0 Uncontroll ed type 2 diabetes mellitus 411436494 E11.65 Abnormal weight loss 267 213782 R63.4 Health Concerns Section Related Observation LastModified by Organization Detai ls LastModified Time None Recorded Concern Status LastModified by Organization Details LastModified Time None Recorded Payers Encounter Date Sequence Insurance Name Policy Number Policy Mccarty Covered Member ID Mccarty Member ID Guarantor Name 03/07/2024 1 [place] [id number] Lamine Garcia [id number] Olya Garcia Notes Date Note Type Note Provider Name and Address Organization Details Recorded Time 03/07/2024 text/html Patient is 43-year-old female here for acute visit, she has poorly controlled diabetes, has had recurrent infections, pneumonia, for which recently had hospitalization, she has this weird cervical lymphadenopathy, has been evaluated by ENT at [facility], follow-up CT looked improved, ENT doctor [...] She feels dehydrated BRIAN HOYT, DO [address] [place], [address], [place] [facility] 03/07/2024 12:56:05 OBGyn Episode No OBEpisode recorded.
[2024-04-09] MEDS: MORPHINE 4MG/ML SYRINGE 4 MG IV (19:33)
[2024-04-09] MEDS: LACTATED RINGERS 1000ML 1,000 ML 999 ML IV (19:33)
[2024-04-09 19:59] LABS: Basophils # 0.2 K/mm3 (0-0.2); Eosinophils # 0.2 K/mm3 (0.0-0.4); Eosinophils % 1.3 % (0.1-12.0); Hematocrit 45.3 % (37.0-47.0); Hemoglobin 14.9 g/dL (12.2-16.2); Lymphocytes # 4.7 K/mm3 (0.7-4.5); Lymphocytes % 26.9 % (10-50); Mean Corpuscular Hemoglobin 30.9 pg (27.0-31.2); Mean Corpuscular Volume 93.7 fl (81-99); Mean Platelet Volume 7.9 fl (7.4-10.4); Monocytes % 11.4 % (1.7-9.3); Neutrophils # 10.4 K/mm3 (1.8-7.8); Neutrophils % 59.4 % (37.0-80.0); Platelet Count 527 K/mm3 (142-424); Red Blood Count 4.84 M/mm3 (4.20-5.40); White Blood Count 17.5 K/mm3 (4.8-10.8)
[2024-04-09 20:01] LABS: MANUAL DIFFERENTIAL MANUAL DIFFERENTIAL (MANUAL DIFF)
[2024-04-09 20:35] LABS: Lymphocytes % 38 % (10-50); Monocytes % 8 % (2-9); Neutrophils % 54 % (42-76); Total Cells Counted 100
[2024-04-09 20:36] LABS: Platelet Estimate Normal; RBC Morphology Normal
[2024-04-09 20:38] LABS: HCG Qualitative, Serum Negative (Negative)
--- NOTE | 2024-04-09 20:45 | PC.NURSE ---
Adam NAGEL and Catrachita Palma RN unable to obtain 2nd set of blood cultures. Notified lab and requested assistance obtaining cultures.
[2024-04-09 20:52] LABS: Alanine Aminotransferase 20 U/L (12-78); Albumin Level 4.2 g/dl (3.5-5.0); Albumin/Globulin Ratio 1.2 (1.1-1.8); Alkaline Phosphatase 122 U/L (38-126); Anion Gap 9.3 mEq/L (5-15); Aspartate Amino Transferase 37 U/L (14-36); Bilirubin,Total 0.7 mg/dl (0.2-1.3); Blood Urea Nitrogen 15 mg/dl (7-17); Calcium 9.3 mg/dl (8.4-10.2); Carbon Dioxide 29 mmol/L (22.0-30.0); Chloride 104 mmol/L (98-107); Creatinine Clearance Estimated 148 mL/min (50-200); Estimated Glomerular Filt Rate 109 ml/min (>60); GFR (African American) 131 ML/MIN (>60); Globulin 3.6 g/dL (1.3-3.2); Glucose 129 mg/dl (74-100); Magnesium 1.8 mg/dl (1.6-2.3); Potassium 3.3 mmoL/L (3.5-5.1); Sodium 139 mmol/L (136-145); Total Protein,Serum 7.8 g/dl (6.3-8.2)
--- NOTE | 2024-04-09 21:18 | PC.NURSE ---
Per Dr. Benavides ok not to get second set of blood cultures
[2024-04-09] MEDS: HYDROMORPHONE 2MG/ML SYRINGE 0.5 MG IV (21:34)
--- NOTE | 2024-04-09 21:34 | PC.NURSE ---
gavino wasted with ekta Barnes
[2024-04-09] MEDS: SODIUM CHLORIDE 0.9% 10ML SYR (RAD ONLY) 10 ML IV (21:46)
[2024-04-09] MEDS: IOPAMIDOL-370 (76%);100ML BOTTLE 75 ML IV (21:46)
[2024-04-09 21:54] LABS: INR 0.91 (0.9-1.1); Prothrombin Time 10.3 seconds (10.1-12.5)
[2024-04-09] MEDS: AMPICILLIN/SULBACTAM 3 GM in 0.9 % SODIUM CHLORIDE 100 ML IV (22:43)
[2024-04-10] VITALS (22 sets, daily range): BP systolic 100–148; BP diastolic 60–81; PULSE 55–108; RESP 12–22; TEMP 36.4–36.8; O2SAT 92–100; BMI 27.6
[2024-04-10] MEDS: LACTATED RINGERS 1000ML 1,000 ML 999 ML IV (00:14)
--- NOTE | 2024-04-10 00:23 | PC.NURSE ---
spoke with [facility] and the are on a long waitlist. they couldnt put us on waitlist due to it being many days before ENT would see her
--- OUTSIDE RECORDS SUMMARY | 2024-04-10 00:45 | XMS_ITS | Encounter Summary ---
[facility] Address [address] [place] [address] Care Team Providers Care Office Executive Name Role Phone Unavailable Primary Care Provider Unavailabl e Encounter Details Date Type Department Care Team (Late st Contact Info) Description 02/24/2014 10:55 AM EDT - 02/24/2014 11:59 PM EDT Hospital Encounter [facility] [address] [facility] [address] [place] [address] Riky Hart MD [address] [facility] [address] [place] [address] Social History Tobacco Use Types Packs/Day Years [...] (02/24/2014 10:56 AM EDT) Estradiol 30 pg/mL [facility] Comment: DF by IF @ 02/24/2014 18:18 Males: ?0.0-52.0 pg/mL Adult Female: ?Follicular Phase ? 11.0-165.0 pg/mL ?Midcycle ?146.0-526.0 pg/mL ?Luteal Phase ? 33.0-196.0 pg/mL ?Postmenopausal ?ND-37.0 pg/mL Blood specimen (specimen) 02/24/2014 10:56 AM EDT Narrative [facility] - 02/24/2014 6:18 PM EDT Specimen Type: Blood us Riky Hart MD LAB BLOOD ORDERABLES Final Resul t [facility] [address] [id number], documented in this encounter Visit Diagnoses Not on filedocumented in this encounter
--- OUTSIDE RECORDS SUMMARY | 2024-04-10 00:45 | XMS_ITS | Encounter Summary ---
[facility] Address [address] [place] [address] Care Team Providers Care Cosmetologist Apprentice Name Role Phone Unavailable Primary Care Provider Unavailabl e Encounter Details Date Type Department Care Team (Late st Contact Info) Description 03/30/2014 10:28 AM EST - 03/30/2014 11:59 PM EST Hospital Encounter [facility] [address] [facility] [address] [place] [address] Riky Hart MD [address] [facility] [address] [place] [address] Social History Tobacco Use Types Packs/Day Years [...] (03/30/2014 10:34 AM EST) Estradiol 102 pg/mL [facility] Comment: DF by IF @ 03/30/2014 11:33 Males: ?0.0-52.0 pg/mL Adult Female: ?Follicular Phase ? 11.0-165.0 pg/mL ?Midcycle ?146.0-526.0 pg/mL ?Luteal Phase ? 33.0-196.0 pg/mL ?Postmenopausal ?ND-37.0 pg/mL Blood specimen (specimen) 03/30/2014 10:34 AM EST Narrative [facility] - 03/30/2014 11:33 AM EST Specimen Type: Blood us Riky Hart MD LAB BLOOD ORDERABLES Final Resul t [facility] [address] [place] [address], documented in this encounter Visit Diagnoses Not on filedocumented in this encounter
--- OUTSIDE RECORDS SUMMARY | 2024-04-10 00:45 | XMS_ITS | Encounter Summary ---
[facility] Address [address] [place] [address] Care Team Providers Care Belly Packer Name Role Phone Unavailable Primary Care Provider Unavailabl e Encounter Details Date Type Department Care Team (Late st Contact Info) Description 12/09/2013 11:26 AM EDT - 12/09/2013 11:59 PM EDT Hospital Encounter [facility] [address] [facility] [address] [place] [address] Riky Hart MD [address] [facility] [address] [place] [address] Social History Tobacco Use Types Packs/Day Years [...] EDT) TSH 2.389 0.350 - 5.350 UIU/mL [facility] Comment: Specimens containing fluorescein can produce falsely depressed values with this assay. Patients undergoing fluorescein dye angiography should wait 72 hours post- treatment before testing. Blood specimen (specimen) 12/09/2013 11:28 AM EDT [facility] - 12/09/2013 1:44 PM EDT Specimen Type: Blood us Riky Hart MD LAB BLOOD ORDERABLES Final Resul t Performing Organization Address [facility] de Phone Number [facility] [address] [place] [address], * (ABNORMAL) CBC (No diff) (12/09/2013 11:28 AM EDT) WBC 11.19(H) 3.50 - 10.80 K/[facility] RBC 4.73 3.89 - 5.14 /[facility] Hemoglobin 14.1 11.5 - 15.5 g/dL [facility] Hematocrit 43.3 34.5 - 44.0 % [facility] MCV 91.5 80.0 - 99.0 fL [facility] MCH 29.8 27.0 - 31.0 pg [facility] MCHC 32.6 32.0 - 36.0 g/dL [facility] RDW-CV 13.8 11.3 - 14.5 % [facility] Platelets 381 150 - 450 K/[facility] Blood specimen (specimen) 12/09/2013 11:28 AM EDT [facility] - 12/09/2013 1:15 PM EDT Specimen Type: Blood us Riky Hart MD LAB BLOOD ORDERABLES Final Resul t Performing Organization Address [facility] de Phone Number [facility] [address] [place] [address], * Antibody Screen (12/09/2013 11:28 AM EDT) Antibody Screen Negative [facility] Blood specimen (specimen) 12/09/2013 11:28 AM EDT [facility] - 12/09/2013 1:54 PM EDT Specimen Type: Blood us Riky Hart MD BLOOD BANK TEST ORDERABLES Final Result Performing Organization Address City/[facility]/ZIP Co de Phone Number [facility] [address] [place] [address], * ABO/Rh (12/09/2013 11:28 AM EDT) ABORh O Rh Positive [facility] Blood specimen (specimen) 12/09/2013 11:28 AM EDT [facility] - 12/09/2013 1:54 PM EDT Specimen Type: Blood us Riky Hart MD BLOOD BANK TEST ORDERABLES Final Result Performing Organization Address [facility] [place] [address], documented in this encounter Visit Diagnoses Not on filedocumented in this encounter
--- OUTSIDE RECORDS SUMMARY | 2024-04-10 00:45 | XMS_ITS | Encounter Summary ---
Author Organization [facility] Address [address] [place] [address] Care Team Providers Care Keel Press Operator Name Role Phone Unavailable Primary Care Provider Unavailabl e Encounter Details Date Type Department Care Team (Late st Contact Info) Description 04/02/2014 9:00 AM EST - 04/02/2014 11:59 PM EST Hospital Encounter [facility] [address] [facility] [address] [place] [address] Riky Hart MD [address] [facility] [address] [place] [address] Social History Tobacco Use Types Packs/Day Years [...] (04/02/2014 9:06 AM EST) Estradiol 233 pg/mL [facility] Comment: DF by IF @ 04/02/2014 11:23 Males: ?0.0-52.0 pg/mL Adult Female: ?Follicular Phase ? 11.0-165.0 pg/mL ?Midcycle ?146.0-526.0 pg/mL ?Luteal Phase ? 33.0-196.0 pg/mL ?Postmenopausal ?ND-37.0 pg/mL Blood specimen (specimen) 04/02/2014 9:06 AM EST Narrative [facility] - 04/02/2014 11:23 AM EST Specimen Type: Blood us Riky Hart MD LAB BLOOD ORDERABLES Final Resul t [facility] [address] [place] [address], documented in this encounter Visit Diagnoses Not on filedocumented in this encounter
--- OUTSIDE RECORDS SUMMARY | 2024-04-10 00:45 | XMS_ITS | Encounter Summary ---
[facility] Address [address] [place] [address] Care Team Providers Care Gallery Or Museum Guide Name Role Phone Unavailable Primary Care Provider Unavailabl e Encounter Details Date Type Department Care Team (Late st Contact Info) Description 01/29/2014 11:11 AM EDT - 01/29/2014 11:59 PM EDT Hospital Encounter [facility] [address] [facility] [address] [place] [address] Riky Hart MD [address]60 [facility] [address] [place] [address] Social History Tobacco Use Types Packs/Day Years [...] (01/29/2014 11:13 AM EDT) Estradiol 84 pg/mL [facility] Comment: DF by IF @ 01/29/2014 12:41 Males: ?0.0-52.0 pg/mL Adult Female: ?Follicular Phase ? 11.0-165.0 pg/mL ?Midcycle ?146.0-526.0 pg/mL ?Luteal Phase ? 33.0-196.0 pg/mL ?Postmenopausal ?ND-37.0 pg/mL Blood specimen (specimen) 01/29/2014 11:13 AM EDT Narrative [facility] - 01/29/2014 12:41 PM EDT Specimen Type: Blood us Riky Hart MD LAB BLOOD ORDERABLES Final Resul t [facility] [address] [phone], documented in this encounter Visit Diagnoses Not on filedocumented in this encounter
--- OUTSIDE RECORDS SUMMARY | 2024-04-10 00:45 | XMS_ITS | Encounter Summary ---
[facility] Address [address] [place] [address] Care Team Providers Care Lead Instructor/Flight Attendant Name Role Phone Unavailable Primary Care Provider Unavailabl e Encounter Details Date Type Department Care Team (Late st Contact Info) Description 02/03/2014 11:19 AM EDT - 02/03/2014 11:59 PM EDT Hospital Encounter [facility] [address] [facility] [address] [place] [address] Riky Hart MD [address] [facility] [address] [place] [address] Social History Tobacco Use Types Packs/Day Years [...] (02/03/2014 11:21 AM EDT) Estradiol 244 pg/mL [facility] Comment: DF by IF @ 02/03/2014 12:36 Males: ?0.0-52.0 pg/mL Adult Female: ?Follicular Phase ? 11.0-165.0 pg/mL ?Midcycle ?146.0-526.0 pg/mL ?Luteal Phase ? 33.0-196.0 pg/mL ?Postmenopausal ?ND-37.0 pg/mL Blood specimen (specimen) 02/03/2014 11:21 AM EDT Narrative [facility] - 02/03/2014 12:36 PM EDT Specimen Type: Blood us Riky Hart MD LAB BLOOD ORDERABLES Final Resul t [facility] [address] [id number], documented in this encounter Visit Diagnoses Not on filedocumented in this encounter
--- OUTSIDE RECORDS SUMMARY | 2024-04-10 00:45 | XMS_ITS | Encounter Summary ---
[facility] Address [address] [place] [address] Care Team Providers Care Barrel Coater Name Role Phone Unavailable Primary Care Provider Unavailabl e Encounter Details Date Type Department Care Team (Late st Contact Info) Description 03/23/2014 10:37 AM EST - 03/23/2014 11:59 PM EST Hospital Encounter [facility] [address] [facility] [address] [place] [address] Riky Hart MD [address]60 [facility] [address] [place] [address] Social History Tobacco Use Types Packs/Day Years [...] (03/23/2014 10:44 AM EST) Estradiol 17 pg/mL [facility] Comment: DF by IF @ 03/23/2014 11:32 Males: ?0.0-52.0 pg/mL Adult Female: ?Follicular Phase ? 11.0-165.0 pg/mL ?Midcycle ?146.0-526.0 pg/mL ?Luteal Phase ? 33.0-196.0 pg/mL ?Postmenopausal ?ND-37.0 pg/mL Blood specimen (specimen) 03/23/2014 10:44 AM EST Narrative [facility] - 03/23/2014 11:32 AM EST Specimen Type: Blood us Riky Hart MD LAB BLOOD ORDERABLES Final Resul t [facility] [address] [place] [address], documented in this encounter Visit Diagnoses Not on filedocumented in this encounter
--- OUTSIDE RECORDS SUMMARY | 2024-04-10 00:45 | XMS_ITS | Encounter Summary ---
Author Organization [facility] Address [address] [place] [address] Care Team Providers Care Student Education Specialist Name Role Phone Clyde Almodovar MD Primary Care Provider Reason for Referral * Diagnostic Imaging (Routine) - Closed Specialty Diagnoses / Procedures Referred By Contac t Referred To Contact Radiology Diagnoses Encounter for screening mammogram for breast cancer Procedures Mammo screening digital tomosynthesis bilateral w Jeannette Edwards MD [facility] [address] [place] [address] Phone: tel: fax: [facility] [address] [place] [address] Phone: tel: Referral ID Status Reason Start Date Expiration Date Visits Re quested Visits Authorized [id number] Closed 10/06/2019 10/05/2020 1 1 Reason for Visit * Diagnostic Imaging (Routine) - Closed Specialty Diagnoses / Procedures Referred By Contac t Referred To Contact Radiology Diagnoses Encounter for screening mammogram for breast cancer Procedures Mammo screening digital tomosynthesis bilateral w Jeannette Edwards MD [facility] [address] [place] [address] Phone: tel: fax: [facility] [address] [place] [address] Phone: tel: Referral ID Status Reason Start Date Expiration Date Visits Re quested Visits Authorized [id number] Closed 10/06/2019 10/05/2020 1 1 Encounter Details Date Type Department Care Team (Late st Contact Info) Description 11/24/2019 8:00 AM EDT - 11/24/2019 11:59 PM EDT Hospital Encounter [facility] [address] [place] [address] Jeannette Centeno MD [address] [place] [address] [place] [address] Encounter for screening mammogram for [...] cancer documented in this encounter Care Teams Student Education Specialist Relationship Specialty Start Date End Date Clyde Almodovar MD [facility] [address] [facility] 2 [place] [address] PCP - General Family Medicine 11/24/19 documented as of this encounter
--- OUTSIDE RECORDS SUMMARY | 2024-04-10 00:45 | XMS_ITS | Encounter Summary ---
[facility] Address [address] [place] [address] Care Team Providers Care Networking Administrator Name Role Phone Unavailable Primary Care Provider Unavailabl e Encounter Details Date Type Department Care Team (Late st Contact Info) Description 03/04/2014 11:10 AM EST - 03/04/2014 11:59 PM EST Hospital Encounter [facility] [address] [facility] [address] [place] [address] Riky Hart MD 1760 [facility] [address] [place] [address] Social History Tobacco Use Types Packs/Day Years [...] (03/04/2014 11:13 AM EST) Estradiol 179 pg/mL [facility] Comment: DF by IF @ 03/04/2014 21:43 Males: ?0.0-52.0 pg/mL Adult Female: ?Follicular Phase ? 11.0-165.0 pg/mL ?Midcycle ?146.0-526.0 pg/mL ?Luteal Phase ? 33.0-196.0 pg/mL ?Postmenopausal ?ND-37.0 pg/mL Blood specimen (specimen) 03/04/2014 11:13 AM EST Narrative [facility] - 03/04/2014 9:43 PM EST Specimen Type: Blood us Riky Hart MD LAB BLOOD ORDERABLES Final Resul t [facility] [address] [place] [address], documented in this encounter Visit Diagnoses Not on filedocumented in this encounter
--- OUTSIDE RECORDS SUMMARY | 2024-04-10 00:45 | XMS_ITS | Encounter Summary ---
[facility] Address [address] [place] [address] Care Team Providers Care Subway Conductor Name Role Phone Unavailable Primary Care Provider Unavailabl e Encounter Details Date Type Department Care Team (Late st Contact Info) Description 03/02/2014 10:43 AM EST - 03/02/2014 11:59 PM EST Hospital Encounter [facility] [address] [facility] [address] [place] [address] Riky Hart MD 1760 [facility] [address] [place] [address] Social History Tobacco Use Types Packs/Day Years [...] (03/02/2014 10:46 AM EST) Estradiol 85 pg/mL [facility] Comment: DF by IF @ 03/02/2014 15:03 Males: ?0.0-52.0 pg/mL Adult Female: ?Follicular Phase ? 11.0-165.0 pg/mL ?Midcycle ?146.0-526.0 pg/mL ?Luteal Phase ? 33.0-196.0 pg/mL ?Postmenopausal ?ND-37.0 pg/mL Blood specimen (specimen) 03/02/2014 10:46 AM EST Narrative [facility] - 03/02/2014 3:03 PM EST Specimen Type: Blood us Riky Hart MD LAB BLOOD ORDERABLES Final Resul t [facility] [address] [place] [address], documented in this encounter Visit Diagnoses Not on filedocumented in this encounter
--- OUTSIDE RECORDS SUMMARY | 2024-04-10 00:45 | XMS_ITS | Clinical Summary ---
Author Organization [facility] Address [address] [place] [address] Care Team Providers Care Battery Test Engineer Name Role Phone Clyde Almodovar MD [...] Most Recently Relevant to Health Maintenance Insurance [facility] PPO Care Teams Battery Test Engineer Relationship Specialty Start Date End Date Clyde Almodovar MD [address] [place] [address] [place] [address] PCP - General Family Medicine 11/24/19
--- NOTE | 2024-04-10 00:46 | PC.NURSE ---
attempted to call report; floor states the nurse getting that patient does not know she is getting a patient and is off the floor on break. State they will tell her to call me as soon as she is back from break.
[2024-04-10] MEDS: KETOROLAC 30MG/ML VIAL 30 MG IV (00:50)
[2024-04-10] MEDS: DEXAMETHASONE 4MG/ML 1ML VIAL 10 MG IV (00:50)
--- NOTE | 2024-04-10 01:30 | PC.NURSE ---
report called to barbara [phone]
--- NOTE | 2024-04-10 01:30 | EXP.HP ---
History of Present Illness *Admission Date: 04/10/24 *Reason for visit:: Oral/nasal airway inflammation after T&A surgery *History of present illness: 43-year-old female with past medical history of hypertension, diabetes, asplenia who presents status post T&A surgery Sunday with inability drink/eat, SOB, malaise. Patient admitted to ICU for supraglottitis management. Patient reports inadequate liquid/solid intake since surgery on Sunday. States when she attempts to drink liquid, it comes out of her nose. Also reports decreased p.o. intake. states that patient has been suffering from shortness of breath issues over the past couple days. Patient on 2 L nasal cannula during my exam in emergency room. Denies asthma, COPD, smoking. No tripoding, accessory muscle use, or nasal flaring noted during my ER exam. I just feel really weak. ENT consulted by emergency room,) patient in AM. Patient able to control oral secretions during my examination patient in emergency room. Denies chest pain, fevers, chills, known sick contacts. [facility] Disclaimer: The information contained in this section may have been updated after the patient was seen, as this information can be updated by other users. Medical History (Updated 04/10/24 @ 02:01 by Wayne Flower MD) Tachycardia Lymphadenopathy Pneumonia Strep throat COVID-19 Bacteremia Asplenia Fever Acute hypokalemia Cough Acute viral syndrome General weakness Leukocytosis COVID-19 Hypertension Gastroenteritis Acute viral syndrome Grief Depression Migraine Diabetes mellitus, type 2 Hyperlipidemia Generalized anxiety disorder Type 2 diabetes mellitus Diabetes mellitus Surgical History H/O lysis of adhesions History of splenectomy History of cholecystectomy History of appendectomy Family History Mother FHx: mental illness depression Father Diabetes Grandfather Diabetes Grandmother Cancer basal cell lung cancer Social History (Updated 04/10/24 @ 02:04 by Megan Ren RN) Smoking Status: Never smoker second hand exposure: No alcohol intake: never substance use type: denies use current occupational status: employed and other details: she is in the process of getting a job; she is interviewing Travel in the last 8 weeks: None adopted: No caregiver/support person: Yes (she takes care of her grand-daughter) foster care: No household members: spouse housing: house marital status: number of children: 1 number of grandchildren: 1 education level: high school service: No chcf: No 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 current occupational exposures/hazards: No Hx Recent Travel: No sexually active: Yes caffeine: Yes physical activity: none working smoke detector in home: Yes fire extinguisher in home: Yes carbon monox detector in home: No firearms in home: Yes firearms unloaded and locked: Yes do you feel safe at home: Yes victim of physical abuse: No victim of emotional abuse: No victim of sexual abuse: No Other Medical History Have you received the Flu Vaccine for this season: No Have you received the Pneumonia Vaccine: No Review of Systems Review of Systems Review of systems:: pertinent systems reviewed and negative unless documented below Constitutional Constitutional: Reports system reviewed and no additional complaints, except as documented Meds Home Medications and Allergies Home Medications ?Medication ?Instructions ?Recorded ?Confirmed ?Type bisoprolol fumarate 10 mg tablet 10 mg PO DAILY 10/02/20 04/07/24 History fenofibrate 160 mg tablet 160 mg PO DAILY 01/16/22 04/07/24 History cholecalciferol (vitamin D3) 125 125 mcg PO DAILY 02/08/23 04/07/24 History mcg (5,000 unit) tablet (Vitamin D3) ferrous sulfate 325 mg (65 mg 325 mg PO Q48H 02/08/23 04/07/24 History iron) tablet (FeroSul) gabapentin 300 mg capsule 300 mg PO BIDP PRN Neuropathic Pain 03/05/23 04/07/24 History rosuvastatin 20 mg tablet 20 mg PO DAILY 06/06/23 04/07/24 History albuterol sulfate 90 mcg/actuation 2 puff inhalation Q4HP PRN 12/19/23 04/07/24 History aerosol inhaler Shortness Of Breath insulin glargine U-300 conc 300 10 unit SQ HS 12/19/23 04/07/24 History unit/mL (3 mL) subcutaneous pen (Toujeo Max U-300 SoloStar) insulin lispro 100 unit/mL 10 unit SQ TID 12/19/23 04/07/24 History subcutaneous pen (Humalog KwikPen (U-100) Insulin) tirzepatide 10 mg/0.5 mL 10 mg SQ WEEKLY 12/19/23 04/07/24 History subcutaneous pen injector (Mounjaro) triamterene 37.5 1 tab PO DAILYP PRN Edema 12/19/23 04/07/24 History mg-hydrochlorothiazide 25 mg tablet pen needle, diabetic 32 gauge x #1,200 ea 02/11/24 04/07/24 History 5/32 (BD Kim 2nd Gen Pen Needle) desvenlafaxine succinate 100 mg 100 mg PO DAILY #90 tabs 03/24/24 04/07/24 Rx tablet,extended release 24 hr (Pristiq) dextromethorphan IR 45 1 tab PO BID 90 days #180 ea 03/24/24 04/07/24 Rx mg-bupropion ER 105 mg biphasic tablet (Auvelity) diazepam 10 mg tablet (Valium) 10 mg PO BIDP PRN anxiety #60 tabs 03/24/24 04/07/24 Rx Tetracaine Lollipops (0.5%) 1 ea 1 ea PO DIRECTED #3 ea 04/07/24 Rx lozenge on a handle hydrocodone 7.5 mg-acetaminophen 15 ml PO Q4H PRN pain #200 mL 04/07/24 Rx 325 mg/15 mL oral solution hydrocodone 7.5 mg-acetaminophen 15 ml PO Q4H PRN pain #200 mL 04/07/24 Rx 325 mg/15 mL oral solution ondansetron 4 mg disintegrating 4 mg PO Q4H PRN nausea and 04/07/24 Rx tablet vomiting #10 tabs New Prescriptions to Start Prescriptions: Allergies Allergy/AdvReac Type Severity Reaction Status Date / Time No Known Allergies Allergy Verified 04/07/24 08:00 Exam Data for Last 24 hours Vital signs and Labs for Last 24 Hours: Temp Pulse Resp BP Pulse Ox O2 Del Method 97.9 F 84 12 115/72 100 Room Air 04/10/24 01:27 04/10/24 01:27 04/10/24 01:27 04/10/24 01:27 04/10/24 01:00 04/10/24 01:27 Laboratory Results - last 24 hr 04/09/24 19:40: WBC 17.5 H, RBC 4.84, Hgb 14.9, Hct 45.3, MCV 93.7, MCH 30.9, MCHC 33.0, RDW 15.0, Plt Count 527 H, MPV 7.9, Neut % (Auto) 59.4, Lymph % (Auto) 26.9, [place] % (Auto) 11.4 H, Eos % (Auto) 1.3, Baso % (Auto) 1.0, Neut # (Auto) 10.4 H, Lymph # (Auto) 4.7 H, [place] # (Auto) 2.0 H, Eos # (Auto) 0.2, Baso # (Auto) 0.2, Total Counted 100, Neutrophils % (Manual) 54, Lymphocytes % (Manual) 38, Monocytes % (Manual) 8, Platelet Estimate Normal, RBC Morphology Normal, Sodium 139, Potassium 3.3 L, Chloride 104, Carbon Dioxide 29, Anion Gap 9.3, BUN 15, Creatinine 0.60, Estimated Creat Clear 148, Estimated GFR 109, Est GFR ( Amer) 131, Glucose 129 H, Calcium 9.3, Magnesium 1.8, Total Bilirubin 0.7, AST 37 H, ALT 20, Alkaline Phosphatase 122, Total Protein 7.8, Albumin 4.2, Globulin 3.6 H, Albumin/Globulin Ratio 1.2, Serum HCG, Qual Negative 04/09/24 21:17: PT 10.3, INR 0.91 I & O for Last 24 hours: Intake & Output 04/07/24 04/08/24 04/09/24 04/10/24 23:59 23:59 23:59 23:59 Weight 78.471 kg Constitutional Constitutional: moderate distress Comments: Ill-appearing, weak, oriented x 3 *Routine HEENT Exam Head: Present normocephalic Eye: Present EOMI ENT: Present mucous membranes dry Comments: Extremely swollen edematous oropharyngeal airway. Tender to palpation anterior cervical lymph node chain. Also tender submandibular lymph nodes. Unable to visualize posterior oropharynx secondary to inflammation *Routine Neck Exam Neck: Present tenderness and swelling *Routine Respiratory Exam Respiratory: Present CTA bilaterally *Routine Cardiovascular Exam Cardiovascular: Present RRR, Normal S1 and Normal S2 *Routine Abdominal Exam Abdominal: Present soft and normoactive bowel sounds *Routine Rectal Exam Rectal:: deferred *Routine Genitalia Exam Genitalia:: deferred *Routine Extremities Exam Extremities: Present full ROM *Routine Skin Exam Skin: Present intact and pallor Comments: Pale skin dry to touch Assessment and Plan *Assessment and plan (1) Supraglottitis: Status: Acute Qualifiers: Airway obstruction: without obstruction Qualified Code(s): J04.30 - Supraglottitis, unspecified, without obstruction Category: Medical Code(s): J04.30 - Supraglottitis, unspecified, without obstruction (2) Enlarged tonsils: Status: Acute Category: Medical Code(s): J35.1 - Hypertrophy of tonsils (3) Nausea & vomiting: Status: Acute Category: Medical Code(s): R11.2 - Nausea with vomiting, unspecified (4) Lymphadenopathy: Status: Acute Category: Medical Code(s): R59.1 - Generalized enlarged lymph nodes (5) Diabetes mellitus, type 2: Status: Acute Qualifiers: Diabetes mellitus complication detail: without coma Diabetes mellitus complication status: with hypoglycemia Diabetes mellitus skilled nursing insulin use: with terminal operations supervisor use Qualified Code(s): E11.649 - Type 2 diabetes mellitus with hypoglycemia without coma; Z79.4 - rat exterminator (current) use of insulin Category: Medical Code(s): E11.9 - Type 2 diabetes mellitus without complications (6) Hypertension: Status: Acute Qualifiers: Hypertension type: unspecified Qualified Code(s): I10 - Essential (primary) hypertension Category: Medical Code(s): I10 - Essential (primary) hypertension (7) History of splenectomy: Status: Acute Category: Surgical Code(s): Z90.81 - Acquired absence of spleen (8) Tonsillitis: Status: Acute Category: Medical Code(s): J03.90 - Acute tonsillitis, unspecified Plan 43-year-old female with past medical history of hypertension, diabetes, asplenia who presents status post TNA surgery Sunday with inability drink/eat, SOB, malaise. Patient admitted to ICU for supraglottitis management. Problems as listed below: Supraglottitis: ?Reviewed labs at time of admission WBC 17.7, Hgb 14.9, platelets 527, NA 139, potassium 3.3, chloride 104, CO2 29, BUN 15, creatinine 0.6 glucose 1.9, total bili 0.7 alk phos 122 AST 27, ALT 20, serum hCG negative. I will administer 40 mill equivalents KCl and patient's normal saline fluids overnight. I will also recheck BMP, mag, CBC in a.m. ? Thoroughly evaluated patient's airway in emergency room without signs of respiratory distress. No stridor, tripoding, or use of accessory muscles of respiration. Patient extremely comfortable on 2 L nasal cannula satting 99 to 100% during my evaluation in emergency room. Will cautiously admit patient to ICU for supraglottitis management. Decadron IV 10 mg Q8, Benadryl 50 mg x 1, Pepcid 20 mg IV every 12, DuoNebs 3 mL inhaled every 6 hours as needed shortness of breath. Consult ENT who will see patient in AM. Unasyn 3 g IV every 6 hours. Will check procalcitonin, lactic acid. Dehydration: ? Secondary to supraglottitis causing decreased solid/liquid intake. Start normal saline 150 cc/h. Asplenia: As above and supraglottitis plus watch patient closely during hospitalization for signs of infection Diabetes: Sign scale insulin, ACHS Accu-Cheks. Expect patient to suffer from hypoglycemia on Solu-Medrol with underlying diabetes issues Hypertension: Continue home management and as needed IV hydralazine if needed PPx: Lovenox subcutaneous CODE STATUS full FEN: Start with full liquids diabetic and advance as tolerated MDM: Copa: High, patient's oropharyngeal inflammation poses risk to life and bodily function. Data: High, see above. Patient's acted as independent historian during my interview with patient emergency room. I spoke at length with the emergency room provider, and agree that patient could be monitored closely at this institution in ICU for supraglottitis management. Risk: High, patient at risk for respiratory distress and dehydration without in-hospital management of supraglottitis related dehydration. Prescription drug management as noted above including maintenance IV fluids, IV Decadron, IV Benadryl, IV Pepcid 40 minutes of critical care time spent on this patient by Dr. Harris 04/10/2024
[2024-04-10] MEDS: diphenhydrAMINE 50MG/ML VIAL 50 MG IV (02:30)
[2024-04-10] MEDS: FAMOTIDINE 20MG/2ML VIAL 20 MG IV ×3 (02:31→21:15)
[2024-04-10] MEDS: 0.9% NaCl w/40mEq KCL 1,000 ML 150 ML IV (02:43)
[2024-04-10] MEDS: MORPHINE 4MG/ML SYRINGE 4 MG IV (02:43)
--- NOTE | 2024-04-10 03:46 | PC.NURSE ---
Patients heart rate 130 at 0245. Patient's heart rate then lowered ton 60's. MD aware, no new orders at time. Patient then oliver at 0335 heart rate 29. MD aware, ekg ordered. Patient asymptomatic each time.
--- NOTE | 2024-04-10 03:55 | ECG_ITS ---
APPROVED REPORT Exam: Resting ECG HR:51 bpm ECG Measurements Heart Rate 51 AXES PA 149 P 32 QRSd 96 QRS 49 QT 418 T 42 QTc 395 Conclusion SINUS BRADYCARDIA WITH MARKED SINUS ARRHYTHMIA BORDERLINE ECG UNCONFIRMED REPORT Electronically signed by : Raman Hopson MD 04/10/2024 16:40:50
--- NOTE | 2024-04-10 04:16 | CA_ITS ---
APPROVED REPORT EXAM: Comprehensive 2D, Doppler, and color-flow Echocardiogram Marine Engineer Cpvec: Argenis Saldana CRT Ht: 5 ft 6 in Wt: 173lbs BSA: 1.88 BP: 115/72 mmHg Indications: bradycardia, after morphine was given hr up to 134 then oliver to 44, supraglottitis, sp tonsillectomy 04/07/24, HTN, DM 2D Dimensions LA Volume 46.20 mL LA Volume Index 23.90 mL/m2 (M/F) 16-34 M-Mode Dimensions RVDd 2.57 cm (0.9-2.6) LA Diam 2.95 cm (1.9-4.0) LVDd 4.10 cm (3.5-5.7) LVDs 2.67 cm (3.5-5.7) IVSd 1.50 cm (0.6-1.1) PWd 0.93 cm (0.6-1.1) EF (Teich) 64.60% FS 34.90% EDV (Teich) 74.20 mL TAPSE 2.55 (<1.7) ESV (Teich) 26.30 mL LV Diastology E Decel Time 323 (160-240 msec) E/A Ratio 1.18 MED A' 9.90 cm/s LAT A' 10.10 cm/s Aortic Valve AO Peak GR. 8.20 mmHg Mitral Valve MV A Velocity 78.0 (40-130 cm/s) E/A Ratio 1.18 Pulmonary Valve PV Peak Velocity 102.0 (50-150 cm/s) Tricuspid Valve TR P. Velocity 153.00 cm/s RAP Estimate 10.00 mmHg RVSP 19.30 mmHg Left Ventricle The left ventricle is normal size. The left ventricular systolic function is normal. The left ventricular ejection fraction is within the normal range. There is normal left ventricular wall thickness. There is normal LV segmental wall motion. The left ventricular diastolic function is normal. LVEF is 55%. Right Ventricle The right ventricle is normal size. The right ventricular systolic function is normal. Atria The left atrium size is normal. The right atrium size is normal. There is no Doppler evidence of interatrial shunt. Aortic Valve Aortic valve is mildly thickened. There is no aortic valvular stenosis. No aortic regurgitation is present. Mitral Valve The mitral valve is normal in structure. No evidence of mitral valve stenosis. Trace mitral regurgitation. Tricuspid Valve Tricuspid valve is grossly normal in structure and function. There is no tricuspid valve stenosis. Trace tricuspid regurgitation. There is insufficient TR jet to estimate RVSP. Pulmonic Valve The pulmonary valve is normal in structure. Trace pulmonic regurgitation. Great Vessels The aortic root is normal in size. The ascending aorta is normal in size. IVC is normal in size and collapses >50% with inspiration. Pericardium There is no pericardial effusion. Other Information Study Quality: Fair Conclusion Normal biventricular systolic function. No significant valvular stenosis or regurgitation. Electronically signed by : Ruthy Lange MD 04/10/2024 23:15:02
[2024-04-10] MEDS: AMPICILLIN/SULBACTAM 3 GM in 0.9 % SODIUM CHLORIDE 100 ML IV ×3 (04:24→21:15)
[2024-04-10 04:37] LABS: Adenovirus,PCR Not Detected (NotDetected); Bordetella Pertussis Not Detected (NotDetected); Chlamydophila Pneumoniae, PCR Not Detected (NotDetected); Coronavirus 19, PCR Not Detected (NotDetected); Coronavirus 229E Not Detected (NotDetected); Coronavirus NL63 Not Detected (NotDetected); Coronavirus OC43 Not Detected (NotDetected); Coronovirus HKU1,PCR Not Detected (NotDetected); Human Metapneumovirus Not Detected (NotDetected); Influenza A, PCR Not Detected (NotDetected); Influenza AH1, 2009 Not Detected (NotDetected); Influenza AH1, PCR Not Detected (NotDetected); Influenza AH3,PCR Not Detected (NotDetected); Influenza B, PCR Not Detected (NotDetected); Mycoplasma Pneumoniae, PCR Not Detected (NotDetected); Parainfluenza 1, PCR Not Detected (NotDetected); Parainfluenza 2, PCR Not Detected (NotDetected); Parainfluenza 3, PCR Not Detected (NotDetected); Parainfluenza 4, PCR Not Detected (NotDetected); Respiratory Syncytial Virus Not Detected (NotDetected); Rhinovirus/Enterovirus Not Detected (NotDetected)
[2024-04-10 05:14] LABS: POC Glucose,Bedside 211 (70-110)
[2024-04-10 05:56] LABS: Basophils # 0.2 K/mm3 (0-0.2); Basophils % 0.8 % (0.1-2.0); Eosinophils # 0.1 K/mm3 (0.0-0.4); Eosinophils % 0.2 % (0.1-12.0); Hematocrit 43.9 % (37.0-47.0); Hemoglobin 14.2 g/dL (12.2-16.2); Lymphocytes # 2.3 K/mm3 (0.7-4.5); Lymphocytes % 9.5 % (10-50); Mean Corpuscular HGB Conc 32.3 g/dL (31.8-35.4); Mean Corpuscular Hemoglobin 31.1 pg (27.0-31.2); Mean Corpuscular Volume 96.2 fl (81-99); Mean Platelet Volume 7.9 fl (7.4-10.4); Monocytes # 1.6 K/mm3 (0.1-1.0); Monocytes % 6.4 % (1.7-9.3); Neutrophils # 20.1 K/mm3 (1.8-7.8); Neutrophils % 83.1 % (37.0-80.0); Platelet Count 474 K/mm3 (142-424); Red Blood Count 4.56 M/mm3 (4.20-5.40); Red Cell Distribution Width 14.8 % (11.5-17.5); White Blood Count 24.1 K/mm3 (4.8-10.8)
[2024-04-10 06:03] LABS: Chloride 108 mmol/L (98-107); Sodium 134 mmol/L (136-145)
[2024-04-10 06:04] LABS: Potassium 4.5 mmoL/L (3.5-5.1)
[2024-04-10 06:05] LABS: MANUAL DIFFERENTIAL MANUAL DIFFERENTIAL (MANUAL DIFF)
[2024-04-10 06:06] LABS: Anion Gap 9.5 mEq/L (5-15); Blood Urea Nitrogen 12 mg/dl (7-17); Carbon Dioxide 21 mmol/L (22.0-30.0); Creatinine Clearance Estimated 220 mL/min (50-200); Estimated Glomerular Filt Rate 173 ml/min (>60); GFR (African American) 210 ML/MIN (>60); Lactic Acid 0.6 mmol/L (0.7-2.1)
[2024-04-10 06:07] LABS: Calcium 8.3 mg/dl (8.4-10.2); Glucose 194 mg/dl (74-100)
[2024-04-10] MEDS: humaLOG 100 UNITS/ML 10ML VIAL (SSI) SUBCUT ×2 (06:22→21:15)
[2024-04-10] MEDS: DEXAMETHASONE 4MG/ML 5ML MDV 10 MG IV ×2 (06:35→13:11)
--- NOTE | 2024-04-10 06:52 | PC.NURSE ---
Ok per md to give morphine with heart rate 40's-60's
[2024-04-10] MEDS: MORPHINE 2MG/ML SYRINGE 2 MG IV ×5 (07:00→21:14)
[2024-04-10 07:38] LABS: Troponin I < 0.01 ng/ml (0.00-0.034)
--- NOTE | 2024-04-10 08:50 | HMH.PHAINT1 ---
Pharmacy Intervention Comments: HOME MEDICATIONS VERIFIED VIA OUTPATIENT PHARMACY AND INTERVIEW WITH
--- NOTE | 2024-04-10 09:25 | P.CONPHA_ITS ---
Pharmacy Consult Date: 04/10/24 Time: 09:25 Referring provider: DR. VEGA Reason for Consult:: VANCOMYCIN DOSING Allergies Allergy/AdvReac Type Severity Reaction Status Date / Time No Known Allergies Allergy Verified 04/07/24 08:00 Home Medications ?Medication ?Instructions ?Recorded ?Confirmed ?Type bisoprolol fumarate 10 mg tablet 10 mg PO DAILY 10/02/20 04/10/24 History fenofibrate 160 mg tablet 160 mg PO DAILY 01/16/22 04/10/24 History ferrous sulfate 325 mg (65 mg 325 mg PO Q48H 02/08/23 04/10/24 History iron) tablet (FeroSul) gabapentin 300 mg capsule 300 mg PO TID 03/05/23 04/10/24 History rosuvastatin 20 mg tablet 20 mg PO DAILY 06/06/23 04/10/24 History albuterol sulfate 90 mcg/actuation 2 puff inhalation Q4HP PRN 12/19/23 04/10/24 History aerosol inhaler Shortness Of Breath insulin glargine U-300 conc 300 30 unit SQ HS 12/19/23 04/10/24 History unit/mL (3 mL) subcutaneous pen (Toujeo Max U-300 SoloStar) insulin lispro 100 unit/mL 24 unit SQ TID 12/19/23 04/10/24 History subcutaneous pen (Humalog KwikPen (U-100) Insulin) tirzepatide 10 mg/0.5 mL 10 mg SQ WEEKLY 12/19/23 04/10/24 History subcutaneous pen injector (Ashley) triamterene 37.5 1 tab PO DAILYP PRN Edema 12/19/23 04/10/24 History mg-hydrochlorothiazide 25 mg tablet desvenlafaxine succinate 100 mg 100 mg PO DAILY #90 tabs 03/24/24 04/10/24 Rx tablet,extended release 24 hr (Pristiq) diazepam 10 mg tablet (Valium) 10 mg PO BIDP PRN anxiety #60 tabs 03/24/24 04/10/24 Rx blood-glucose meter,continuous 04/10/24 04/10/24 History ([employer] G7 Client Services Representative) blood-glucose sensor ([employer] G7 04/10/24 04/10/24 History Sensor device) blood-glucose transmitter ([employer] 04/10/24 04/10/24 History G6 Transmitter device) dextromethorphan IR 45 1 tab PO BID 04/10/24 04/10/24 History mg-bupropion ER 105 mg biphasic tablet (Auvelity) hydrocodone 7.5 mg-acetaminophen 15 ml PO Q4HP PRN Pain (Scale 04/10/24 04/10/24 History 325 mg/15 mL oral solution Score 4-6) ondansetron 4 mg disintegrating 4 mg PO Q4HP PRN nausea and 04/10/24 04/10/24 History tablet vomiting pen needle, diabetic 32 gauge x 04/10/24 04/10/24 History (BD Kim 2nd Gen Pen Needle) New Prescriptions to Start Prescriptions: Height: 1.68 m Weight: 77.791 kg Laboratory Results:: Laboratory Results - last 24 hr 04/09/24 19:40: WBC 17.5 H, RBC 4.84, Hgb 14.9, Hct 45.3, MCV 93.7, MCH 30.9, MCHC 33.0, RDW 15.0, Plt Count 527 H, MPV 7.9, Neut % (Auto) 59.4, Lymph % (Auto) 26.9, [place] % (Auto) 11.4 H, Eos % (Auto) 1.3, Baso % (Auto) 1.0, Neut # (Auto) 10.4 H, Lymph # (Auto) 4.7 H, [place] # (Auto) 2.0 H, Eos # (Auto) 0.2, Baso # (Auto) 0.2, Total Counted 100, Neutrophils % (Manual) 54, Lymphocytes % (Manual) 38, Monocytes % (Manual) 8, Platelet Estimate Normal, RBC Morphology Normal, Sodium 139, Potassium 3.3 L, Chloride 104, Carbon Dioxide 29, Anion Gap 9.3, BUN 15, Creatinine 0.60, Estimated Creat Clear 148, Estimated GFR 109, Est GFR ( Amer) 131, Glucose 129 H, Calcium 9.3, Magnesium 1.8, Total Bilirubin 0.7, AST 37 H, ALT 20, Alkaline Phosphatase 122, Total Protein 7.8, Albumin 4.2, Globulin 3.6 H, Albumin/Globulin Ratio 1.2, Serum HCG, Qual Negative 04/09/24 21:17: PT 10.3, INR 0.91 04/10/24 05:05: POC Glucose 211 H 04/10/24 05:45: WBC 24.1 H* D, RBC 4.56, Hgb 14.2, Hct 43.9, MCV 96.2, MCH 31.1, MCHC 32.3, RDW 14.8, Plt Count 474 H, MPV 7.9, Neut % (Auto) 83.1 H, Lymph % (Auto) 9.5 L, [place] % (Auto) 6.4, Eos % (Auto) 0.2, Baso % (Auto) 0.8, Neut # (Auto) 20.1 H, Lymph # (Auto) 2.3, [place] # (Auto) 1.6 H, Eos # (Auto) 0.1, Baso # (Auto) 0.2, Sodium 134 L, Potassium 4.5 D, Chloride 108 H, Carbon Dioxide 21 L, Anion Gap 9.5, BUN 12, Creatinine 0.40 L D, Estimated Creat Clear 220, Estimated GFR 173, Est GFR ( Amer) 210 D, Glucose 194 H D, Lactate 0.6 L, Calcium 8.3 L, Magnesium 2.0 D, Troponin I < 0.01, Procalcitonin 0.040 Medical History: Medical History (Updated 04/10/24 @ 02:01 by Wayne Flower MD) Tachycardia Lymphadenopathy Pneumonia Strep throat COVID-19 Bacteremia Asplenia Fever Acute hypokalemia Cough Acute viral syndrome General weakness Leukocytosis COVID-19 Hypertension Gastroenteritis Acute viral syndrome Grief Depression Migraine Diabetes mellitus, type 2 Hyperlipidemia Generalized anxiety disorder Type 2 diabetes mellitus Diabetes mellitus Assessment and Plan Assessment and plan all Dx Assessment and Plan for all problems:: Pharmacokinetic dosing service Objective: Patient: Floor: Age: 43 yo Serum creatinine: 0.40 mg/dL Height: 66.1 Inches Weight (kg): 77.8 Assessment: IBW (kg): 64.03 Dosing wt(kg): 77.8 Estimated Creatinine clearance (ml/min): 130 Clearance limited to 130 ml/min to reduce risk of overdosing. CRCL method: Cockcroft and Gault using ibw(default). Drug selected: Vancomycin Loading dose (mg): Vd (liters): 62.2 (factor used: 0.8 L/kg) Min (hr-1): 0.112 Half life (hrs): 6.19 CLvanco=?? 6.966 L/hr Recommended dose: 1250 mg Interval: 8 hrs Infusion time (hrs): 2.0 Predicted peak (mcg/mL): 30.4 Predicted trough (mcg/mL): 15.52 Total body weight is being used for vancomycin dosing. Recommendations: Give Vancomycin 1250 mg q 8 hrs with an expected Cpeak of 30.4 mcg/ml and an expected Ctrough of 15.52 mcg/ml AUC 0-24 /BERNIE Data: BERNIE 0.5 mcg/mL:?? AUC/BERNIE:? 1076.7 BERNIE 1.0 mcg/mL:?? AUC/BERNIE:? 538.3 --------- BERNIE 1.5 mcg/mL:?? AUC/BERNIE:? 358.9 BERNIE 2.0 mcg/mL:?? AUC/BERNIE:? 269.2 Thank you for the consult, will continue to follow. -LINDY HUMMEL, MAYD
--- NOTE | 2024-04-10 09:36 | XR_ITS ---
FINAL REPORT CLINICAL HISTORY: sepsis COMPARISON: 01/02/2024 FINDINGS: A single portable view of the chest was obtained. The heart size and pulmonary vascularity are within normal limits. The mediastinum is within normal limits. There are mild left base opacities which favor atelectasis. The bony thorax is intact. IMPRESSION: Left base opacities, favor atelectasis. Reviewed, Interpreted and Dictated by Castro Patel III, MD Transcribed by Geeta Wright Authenticated and [facility]
[2024-04-10] MEDS: ENOXAPARIN 40MG/0.4ML SYRINGE 40 MG SUBCUT (09:43)
[2024-04-10] MEDS: PIPERCILLIN/TAZO 3.375 GM in 0.9 % SODIUM CHLORIDE 50 ML IV (09:43)
[2024-04-10 09:49] LABS: Lymphocytes % 9 % (10-50); Monocytes % 2 % (2-9); Neutrophils % 89 % (42-76); Platelet Estimate Slight Increase; RBC Morphology Normal; Total Cells Counted 100
--- NOTE | 2024-04-10 10:20 | EXP.ENTCONS ---
History of Present Illness *Admission Date: 04/10/24 *Reason for visit:: Unable to eat or drink post tonsillectomy 04/07/2024. *History of present illness: 43-year-old female with past medical history of hypertension, diabetes, asplenia who presents status post T&A surgery Sunday04/07/24 with inability drink/eat, SOB, malaise. Patient admitted to ICU for supraglottitis management. Patient reports inadequate liquid/solid intake since surgery on Sunday. States when she attempts to drink liquid, it comes out of her nose. Also reports decreased p.o. intake. also reports that patient has been short of breath over the last couple days. Denies chest pain, fevers, chills, known sick contacts. [facility] Disclaimer: The information contained in this section may have been updated after the patient was seen, as this information can be updated by other users. Medical History Tachycardia Lymphadenopathy Pneumonia Strep throat COVID-19 Bacteremia Asplenia Fever Acute hypokalemia Cough Acute viral syndrome General weakness Leukocytosis COVID-19 Hypertension Gastroenteritis Acute viral syndrome Grief Depression Migraine Diabetes mellitus, type 2 Hyperlipidemia Generalized anxiety disorder Type 2 diabetes mellitus Diabetes mellitus Surgical History H/O lysis of adhesions History of splenectomy History of cholecystectomy History of appendectomy Family History Mother FHx: mental illness Father Diabetes Grandfather Diabetes Grandmother Cancer Social History (Updated 04/10/24 @ 02:04 by Megan Ren RN) Smoking Status: Never smoker second hand exposure: No alcohol intake: never substance use type: denies use current occupational status: employed and other details: she is in the process of getting a job; she is interviewing Travel in the last 8 weeks: None adopted: No caregiver/support person: Yes (she takes care of her grand-daughter) foster care: No household members: spouse housing: house marital status: number of children: 1 number of grandchildren: 1 education level: high school service: No long term: No 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 current occupational exposures/hazards: No Hx Recent Travel: No sexually active: Yes caffeine: Yes physical activity: none working smoke detector in home: Yes fire extinguisher in home: Yes carbon monox detector in home: No firearms in home: Yes firearms unloaded and locked: Yes do you feel safe at home: Yes victim of physical abuse: No victim of emotional abuse: No victim of sexual abuse: No Review of Systems Review of Systems Review of systems:: pertinent systems reviewed and negative unless documented below Constitutional Constitutional: Reports system reviewed and no additional complaints, except as documented Eyes Eyes: Reports system reviewed and no additional complaints, except as documented ENT Ears, Nose, Mouth, and Throat: Reports system reviewed and no additional complaints, except as documented, Reports as per HPI, Reports dry mouth, Reports mouth pain, Reports odynophagia, Reports sore throat, Reports throat swelling and Reports other (Unable to eat or drink) *Cardiovascular Cardiovascular: Reports system reviewed and no additional complaints, except as documented *Respiratory Respiratory: Reports system reviewed and no additional complaints, except as documented *Gastrointestinal Gastrointestinal: Reports system reviewed and no additional complaints, except as documented and Reports odynophagia Allergic/Immunologic Allergic/Immunologic: Reports throat swelling Meds Home Medications and Allergies Home Medications ?Medication ?Instructions ?Recorded ?Confirmed ?Type bisoprolol fumarate 10 mg tablet 10 mg PO DAILY 10/02/20 04/10/24 History fenofibrate 160 mg tablet 160 mg PO DAILY 01/16/22 04/10/24 History ferrous sulfate 325 mg (65 mg 325 mg PO Q48H 02/08/23 04/10/24 History iron) tablet (FeroSul) gabapentin 300 mg capsule 300 mg PO TID 03/05/23 04/10/24 History rosuvastatin 20 mg tablet 20 mg PO DAILY 06/06/23 04/10/24 History albuterol sulfate 90 mcg/actuation 2 puff inhalation Q4HP PRN 12/19/23 04/10/24 History aerosol inhaler Shortness Of Breath insulin glargine U-300 conc 300 30 unit SQ HS 12/19/23 04/10/24 History unit/mL (3 mL) subcutaneous pen (Toujeo Max U-300 SoloStar) insulin lispro 100 unit/mL 24 unit SQ TID 12/19/23 04/10/24 History subcutaneous pen (Humalog KwikPen (U-100) Insulin) tirzepatide 10 mg/0.5 mL 10 mg SQ WEEKLY 12/19/23 04/10/24 History subcutaneous pen injector (Ashley) triamterene 37.5 1 tab PO DAILYP PRN Edema 12/19/23 04/10/24 History mg-hydrochlorothiazide 25 mg tablet desvenlafaxine succinate 100 mg 100 mg PO DAILY #90 tabs 03/24/24 04/10/24 Rx tablet,extended release 24 hr (Pristiq) diazepam 10 mg tablet (Valium) 10 mg PO BIDP PRN anxiety #60 tabs 03/24/24 04/10/24 Rx blood-glucose meter,continuous 04/10/24 04/10/24 History (DexKeep Me Certified G7 Blending Technician) blood-glucose sensor (Dexcom G7 04/10/24 04/10/24 History Sensor device) blood-glucose transmitter (Dexcom 04/10/24 04/10/24 History G6 Transmitter device) dextromethorphan IR 45 1 tab PO BID 04/10/24 04/10/24 History mg-bupropion ER 105 mg biphasic tablet (Auvelity) hydrocodone 7.5 mg-acetaminophen 15 ml PO Q4HP PRN Pain (Scale 04/10/24 04/10/24 History 325 mg/15 mL oral solution Score 4-6) ondansetron 4 mg disintegrating 4 mg PO Q4HP PRN nausea and 04/10/24 04/10/24 History tablet vomiting pen needle, diabetic 32 gauge x 04/10/24 04/10/24 History 5/32 (BD Kim 2nd Gen Pen Needle) New Prescriptions to Start Prescriptions: Allergies Allergy/AdvReac Type Severity Reaction Status Date / Time No Known Allergies Allergy Verified 04/07/24 08:00 Results Labs 04/10/24 05:45 04/10/24 05:45 Labs: Abnormal lab results 04/09/24 04/10/24 04/10/24 Range/Units 19:40 05:05 05:45 WBC 17.5 H 24.1 H* D (4.8-10.8) K/mm3 Plt Count 527 H 474 H (142-424) K/mm3 Neut % (Auto) 83.1 H (37.0-80.0) % Lymph % (Auto) 9.5 L (10-50) % [place] % (Auto) 11.4 H (1.7-9.3) % Neut # (Auto) 10.4 H 20.1 H (1.8-7.8) K/mm3 Lymph # (Auto) 4.7 H (0.7-4.5) K/mm3 [place] # (Auto) 2.0 H 1.6 H (0.1-1.0) K/mm3 Neutrophils % (Manual) 89 H (42-76) % Lymphocytes % (Manual) 9 L (10-50) % Sodium 134 L (136-145) mmol/L Potassium 3.3 L (3.5-5.1) mmoL/L Chloride 108 H (98-107) mmol/L Carbon Dioxide 21 L (22.0-30.0) mmol/L Creatinine 0.40 L D (0.52-1.04) mg/dl Glucose 129 H 194 H D (74-100) mg/dl POC Glucose 211 H (70-110) Lactate 0.6 L (0.7-2.1) mmol/L Calcium 8.3 L (8.4-10.2) mg/dl AST 37 H (14-36) U/L Globulin 3.6 H (1.3-3.2) g/dL H & H 04/09/24 04/10/24 Range/Units 19:40 05:45 Hgb 14.9 14.2 (12.2-16.2) g/dL Hct 45.3 43.9 (37.0-47.0) % Coagulation 04/09/24 Range/Units 21:17 INR 0.91 (0.9-1.1) All other labs normal. Assessment and Plan *Assessment and plan (1) Status post tonsillectomy: Status: Acute Category: Surgical Code(s): Z90.89 - Acquired absence of other organs (2) Dehydration, severe: Status: Acute Category: Medical Code(s): E86.0 - Dehydration Plan Patient was thoroughly examined. Patient's mucous membranes are severely dehydrated and when pressed with tongue depressor the tongue and surrounding tissue is very hard due to the dehydration. Patient is currently on third liter of fluids since she has been admitted into the ER at around 0100 today. Patient does complain of pain with palpation around the neck area but states she has had this pain since surgery. Otherwise the remainder of the exam was unremarkable. I did speak with hospitalist Dr. Jake Arambula about examination findings and recommendations. As well, I did contact Dr. Madden to relay findings to him. We will continue to monitor.
[2024-04-10] MEDS: VANCOMYCIN/WATER FOR INJ (PEG) 1.25 GM/250 ML PIGGYBACK IV (10:27)
[2024-04-10 10:41] LABS: Microscopic, Urine URINE MICROSCOPIC (MICROSCOPIC)
[2024-04-10 10:42] LABS: Appearance,Urine CLOUDY (Clear); Blood, Urine 3+ (Negative); Color,Urine ORANGE (Yellow); Glucose,Urine (UA) TRACE (Negative); Ketones,Urine 2+ (Negative); Leukocyte Esterase,Urine Negative (Negative); Nitrate,Urine Negative (Negative); PH,Urine 6.5 (5.0-8.5); Protein,Urine TRACE (Negative)
[2024-04-10] MEDS: 0.9 % SODIUM CHLORIDE 1000ML 1,000 ML 999 ML IV (10:44)
[2024-04-10 10:46] LABS: Bilirubin,Urine 1+ (Negative)
[2024-04-10 11:00] LABS: Bacteria,Urine 1+ /lpf; Mucus,Urine Trace /lpf; RBC,Urine TNTC #/hpf (0-3)
[2024-04-10 11:45] LABS: POC Glucose,Bedside 149 (70-110)
[2024-04-10 13:01] LABS: Troponin I 0.03 ng/ml (0.00-0.034)
--- NOTE | 2024-04-10 13:06 | P.CONCA_ITS ---
History of Present Illness History of Present Illness Consult date: 04/10/24 Requesting physician: Jake Carter Chief complaint: bradycardia History of present illness: This is a 43-year-old white female who presented to the emergency department with complaints of inability to eat or drink since surgery on Sunday. She is status post TNA surgery on Sunday, April 07. The patient states since the day after surgery she has been unable to eat or drink. She has been extremely fatigued and tired. She states that she felt short of breath and her throat so she decided to come to the emergency department. The patient states every time she tried to drink liquid it would come out of her nose. She has not really been able to swallow any food. She denies any chest pain or pressure she denies any lower extremity edema. She denies any fever, chills. She states that she does have some nausea since the surgery. She denies any vomiting, diarrhea, PND or orthopnea. Cardiology was consulted because the patient did have sinus bradycardia overnight. Her EKG showed sinus bradycardia. Her heart rate was as low as 29 bpm. Her beta-hailey has been stopped. Her heart rate is stable this morning. However when she is talking and in pain her heart rate does elevate. The patient was admitted to the hospital with supraglottitis. [facility] Disclaimer: The information contained in this section may have been updated after the patient was seen, as this information can be updated by other users. Medical History (Updated 04/10/24 @ 13:11 by Magnolia Yoo APRN) Sinus bradycardia Tachycardia Lymphadenopathy Pneumonia Strep throat COVID-19 Bacteremia Asplenia Fever Acute hypokalemia Cough Acute viral syndrome General weakness Leukocytosis COVID-19 Hypertension Gastroenteritis Acute viral syndrome Grief Depression Migraine Diabetes mellitus, type 2 Hyperlipidemia Generalized anxiety disorder Type 2 diabetes mellitus Diabetes mellitus Surgical History (Updated 04/10/24 @ 10:33 by Anjana Avila APRN) H/O lysis of adhesions History of splenectomy History of cholecystectomy History of appendectomy Family History Mother FHx: mental illness Father Diabetes Grandfather Diabetes Grandmother Cancer Social History (Updated 04/10/24 @ 02:04 by Megan Ren RN) Smoking Status: Never smoker second hand exposure: No alcohol intake: never substance use type: denies use current occupational status: employed and other details: she is in the process of getting a job; she is interviewing Travel in the last 8 weeks: None adopted: No caregiver/support person: Yes (she takes care of her grand-daughter) foster care: No household members: spouse housing: house marital status: number of children: 1 number of grandchildren: 1 education level: high school service: No longterm: No 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 current occupational exposures/hazards: No Hx Recent Travel: No sexually active: Yes caffeine: Yes physical activity: none working smoke detector in home: Yes fire extinguisher in home: Yes carbon monox detector in home: No firearms in home: Yes firearms unloaded and locked: Yes do you feel safe at home: Yes victim of physical abuse: No victim of emotional abuse: No victim of sexual abuse: No Review of Systems Review of Systems Review of systems:: pertinent systems reviewed and negative unless documented below Constitutional Constitutional: Reports system reviewed and no additional complaints, except as documented, Reports fatigue, Reports poor appetite, Reports lethargy and Reports malaise Eyes Eyes: Reports system reviewed and no additional complaints, except as documented ENT Ears, Nose, Mouth, and Throat: Reports system reviewed and no additional complaints, except as documented, Reports dysphagia, Reports facial pain, Reports hoarseness, Reports mouth pain, Reports neck pain, Reports odynophagia and Reports other (Throat pain) *Cardiovascular Cardiovascular: Reports system reviewed and no additional complaints, except as documented, Denies chest pain and Reports dyspnea *Respiratory Respiratory: Reports system reviewed and no additional complaints, except as documented and Reports dyspnea *Gastrointestinal Gastrointestinal: Reports system reviewed and no additional complaints, except as documented, Reports dysphagia and Reports odynophagia *Genitourinary Genitourinary: Reports system reviewed and no additional complaints, except as documented *Musculoskeletal Musculoskeletal: Reports system reviewed and no additional complaints, except as documented and Reports neck pain Integumentary/Breasts Skin/Breast: Reports system reviewed and no additional complaints, except as documented *Neurologic Neurologic: Reports system reviewed and no additional complaints, except as do cumented Psychiatric Psychiatric: Reports system reviewed and no additional complaints, except as documented Endocrine Endocrine: Reports system reviewed and no additional complaints, except as documented and Reports fatigue Hematologic/Lymphatic Hematologic/Lymphatic: Reports system reviewed and no additional complaints, except as documented Allergic/Immunologic Allergic/Immunologic: Reports system reviewed and no additional complaints, except as documented Exam Data for Last 24 hours Vital signs and Labs for Last 24 Hours: Temp Pulse Resp BP Pulse Ox O2 Del Method O2 Flow Rate 97.5 F L 71 20 117/72 97 Nasal Cannula 2 04/10/24 12:00 04/10/24 11:00 04/10/24 11:00 04/10/24 11:00 04/10/24 11:00 04/10/24 11:00 04/10/24 11:00 Laboratory Results - last 24 hr 04/09/24 19:40: WBC 17.5 H, RBC 4.84, Hgb 14.9, Hct 45.3, MCV 93.7, MCH 30.9, MCHC 33.0, RDW 15.0, Plt Count 527 H, MPV 7.9, Neut % (Auto) 59.4, Lymph % (Auto) 26.9, Gregg % (Auto) 11.4 H, Eos % (Auto) 1.3, Baso % (Auto) 1.0, Neut # (Auto) 10.4 H, Lymph # (Auto) 4.7 H, Gregg # (Auto) 2.0 H, Eos # (Auto) 0.2, Baso # (Auto) 0.2, Total Counted 100, Neutrophils % (Manual) 54, Lymphocytes % (Manual) 38, Monocytes % (Manual) 8, Platelet Estimate Normal, RBC Morphology Normal, Sodium 139, Potassium 3.3 L, Chloride 104, Carbon Dioxide 29, Anion Gap 9.3, BUN 15, Creatinine 0.60, Estimated Creat Clear 148, Estimated GFR 109, Est GFR ( Amer) 131, Glucose 129 H, Calcium 9.3, Magnesium 1.8, Total Bilirubin 0.7, AST 37 H, ALT 20, Alkaline Phosphatase 122, Total Protein 7.8, Albumin 4.2, Globulin 3.6 H, Albumin/Globulin Ratio 1.2, Serum HCG, Qual Negative 04/09/24 21:17: PT 10.3, INR 0.91 04/10/24 05:05: POC Glucose 211 H 04/10/24 05:45: WBC 24.1 H* D, RBC 4.56, Hgb 14.2, Hct 43.9, MCV 96.2, MCH 31.1, MCHC 32.3, RDW 14.8, Plt Count 474 H, MPV 7.9, Neut % (Auto) 83.1 H, Lymph % (Auto) 9.5 L, Gregg % (Auto) 6.4, Eos % (Auto) 0.2, Baso % (Auto) 0.8, Neut # (Auto) 20.1 H, Lymph # (Auto) 2.3, Gregg # (Auto) 1.6 H, Eos # (Auto) 0.1, Baso # (Auto) 0.2, Total Counted 100, Neutrophils % (Manual) 89 H, Lymphocytes % (Manual) 9 L, Monocytes % (Manual) 2, Platelet Estimate Slight increase, RBC Morphology Normal, Sodium 134 L, Potassium 4.5 D, Chloride 108 H, Carbon Dioxide 21 L, Anion Gap 9.5, BUN 12, Creatinine 0.40 L D, Estimated Creat Clear 220, Estimated GFR 173, Est GFR ( Amer) 210 D, Glucose 194 H D, Lactate 0.6 L, Calcium 8.3 L, Magnesium 2.0 D, Troponin I < 0.01, Procalcitonin 0.040 04/10/24 11:25: POC Glucose 149 H 04/10/24 12:20: Troponin I 0.03 04/10/24 : Urine Color [place], Urine Appearance Cloudy, Urine pH 6.5, Ur Specific [place] 1.020, Urine Protein Trace, Urine Glucose (UA) Trace, Urine Ketones 2+, Urine Blood 3+ A, Urine Nitrate Negative, Urine Bilirubin 1+ A, Urine Urobilinogen 1.0, Ur Leukocyte Esterase Negative, Urine RBC Tntc, Urine WBC 3-5, Ur Squamous Epith Cells 3-5, Urine Bacteria 1+, Urine Mucus Trace I & O for Last 24 hours: Intake & Output 04/07/24 04/08/24 04/09/24 04/10/24 23:59 23:59 23:59 23:59 Intake Total 318 / 318 Output Total 0 / 0 Balance 318 / 318 Weight 173 lb 171 lb 8 oz Constitutional Constitutional: no acute distress and average body habitus *Routine HEENT Exam Head: Present normocephalic and atraumatic ENT: Present mucous membranes moist *Routine Neck Exam Neck: Present supple, full ROM, normal carotid upstroke and swelling; Absent JVD, carotid bruit or lymphadenopathy *Routine Respiratory Exam Respiratory: Present CTA bilaterally, normal respiratory effort, able to speak in complete sentences and symmetric chest movement *Routine Cardiovascular Exam Cardiovascular: Present RRR, Normal S1 and Normal S2; Absent murmur or gallop *Routine Abdominal Exam Abdominal: Present soft and normoactive bowel sounds; Absent tenderness, distended or organomegaly *Routine Extremities Exam Extremities: Present full ROM, pulses intact and normal capillary refill; Absent cyanosis, clubbing or edema *Routine Skin Exam Skin: Present intact and warm; Absent erythema *Routine Neurological Exam Neurological: Present alert, oriented X3 and CN II-XII intact; Absent sensory deficit or motor deficit Routine Psychiatric Exam Psychiatric: Present normal affect Meds Home Medications and Allergies Home Medications ?Medication ?Instructions ?Recorded ?Confirmed ?Type bisoprolol fumarate 10 mg tablet 10 mg PO DAILY 10/02/20 04/10/24 History fenofibrate 160 mg tablet 160 mg PO DAILY 01/16/22 04/10/24 History ferrous sulfate 325 mg (65 mg 325 mg PO Q48H 02/08/23 04/10/24 History iron) tablet (FeroSul) gabapentin 300 mg capsule 300 mg PO TID 03/05/23 04/10/24 History rosuvastatin 20 mg tablet 20 mg PO DAILY 06/06/23 04/10/24 History albuterol sulfate 90 mcg/actuation 2 puff inhalation Q4HP PRN 12/19/23 04/10/24 History aerosol inhaler Shortness Of Breath insulin glargine U-300 conc 300 30 unit SQ HS 12/19/23 04/10/24 History unit/mL (3 mL) subcutaneous pen (Toujeo Max U-300 SoloStar) insulin lispro 100 unit/mL 24 unit SQ TID 12/19/23 04/10/24 History subcutaneous pen (Humalog KwikPen (U-100) Insulin) tirzepatide 10 mg/0.5 mL 10 mg SQ WEEKLY 12/19/23 04/10/24 History subcutaneous pen injector (Mounjaro) triamterene 37.5 1 tab PO DAILYP PRN Edema 12/19/23 04/10/24 History mg-hydrochlorothiazide 25 mg tablet desvenlafaxine succinate 100 mg 100 mg PO DAILY #90 tabs 03/24/24 04/10/24 Rx tablet,extended release 24 hr (Pristiq) diazepam 10 mg tablet (Valium) 10 mg PO BIDP PRN anxiety #60 tabs 03/24/24 04/10/24 Rx blood-glucose meter,continuous 04/10/24 04/10/24 History (Dexcom G7 Street Light Servicer) blood-glucose sensor (Dexcom G7 04/10/24 04/10/24 History Sensor device) blood-glucose transmitter (Dexcom 04/10/24 04/10/24 History G6 Transmitter device) dextromethorphan IR 45 1 tab PO BID 04/10/24 04/10/24 History mg-bupropion ER 105 mg biphasic tablet (Auvelity) hydrocodone 7.5 mg-acetaminophen 15 ml PO Q4HP PRN Pain (Scale 04/10/24 04/10/24 History 325 mg/15 mL oral solution Score 4-6) ondansetron 4 mg disintegrating 4 mg PO Q4HP PRN nausea and 04/10/24 04/10/24 History tablet vomiting pen needle, diabetic 32 gauge x 04/10/24 04/10/24 History (BD Kim 2nd Gen Pen Needle) New Prescriptions to Start Prescriptions: Allergies Allergy/AdvReac Type Severity Reaction Status Date / Time No Known Allergies Allergy Verified 04/07/24 08:00 Assessment and Plan *Assessment and plan (1) Sinus bradycardia: Status: Acute Category: Medical Code(s): R00.1 - Bradycardia, unspecified (2) Status post tonsillectomy: Status: Acute Category: Surgical Code(s): Z90.89 - Acquired absence of other organs (3) Supraglottitis: Status: Acute Qualifiers: Airway obstruction: without obstruction Qualified Code(s): J04.30 - Supraglottitis, unspecified, without obstruction Category: Medical Code(s): J04.30 - Supraglottitis, unspecified, without obstruction (4) Hypertension: Status: Acute Qualifiers: Hypertension type: unspecified Qualified Code(s): I10 - Essential (primary) hypertension Category: Medical Code(s): I10 - Essential (primary) hypertension (5) Diabetes mellitus, type 2: Status: Acute Qualifiers: Diabetes mellitus long-term insulin use: with terminal worker use Diabetes mellitus complication status: with hypoglycemia Diabetes mellitus complication detail: without coma Qualified Code(s): E11.649 - Type 2 diabetes mellitus with hypoglycemia without coma; Z79.4 - MCC (current) use of insulin Category: Medical Code(s): E11.9 - Type 2 diabetes mellitus without complications Plan Plan: 1. The patient was admitted to the hospital with supraglottitis will defer management to the hospitalist. ENT has also been consulted. 2. The patient was bradycardic through the night with a heart rate as low as 29 bpm. An EKG was obtained that did show sinus bradycardia with a rate around 51 bpm. Her beta-hailey has been stopped. Her heart rate is stable this morning in the 60s and 70s. 3. When the patient is having pain or talking her heart rate did shoot up to around the 122 bpm during my examination. Once she stopped talking and rested her heart rate went back down to the 90s. Her tachycardia at this time is most likely pain induced from her supraglottitis and recent surgery. 4. Echocardiogram shows a normal ejection fraction and no significant valve disease. 5. The patient denies any chest pain or pressure. Her troponin is negative. No plans for invasive left cardiac catheterization at this time. 6. Her blood pressure is well-controlled. 7. Her LDL goal is less than 100. Will get a lipid panel in the morning. 8. Recommend 30-day event monitor at discharge. 9. No further recommendations at this time from a cardiac standpoint. As mentioned above stop her beta-hailey and place a 30-day event monitor at the time of discharge. If any other cardiology issues arise throughout the patient's hospitalization, feel free to contact cardiology again. Thank you for the opportunity to help participate in the care of this patient. All recommendations and orders are per Dr. Lange.
[2024-04-10] MEDS: 0.9 % SODIUM CHLORIDE 1000ML 1,000 ML 150 ML IV ×2 (13:12→22:44)
--- NOTE | 2024-04-10 16:15 | PC.NURSE ---
Md Carter ordered Midline on pt, pre op was contacted to notify of order at 1513.
[2024-04-10 17:36] LABS: POC Glucose,Bedside 182 (70-110)
--- NOTE | 2024-04-10 18:20 | PC.NURSE ---
Pt alert and oriented x4. She does c/o pain with neck movement and swallowing. She is unable to swallow anything besides sips of water at this time. Pt has been medicated per MAR for pain. Pt has been tachy most of shift but MD and Cardiology is aware and pt is to wear a 30 day event monitor on discharge per cardiology. She has been up to bathroom with assist x1. She is currently on 2L NC where she is staying 95% and above. Pt has wheezing noted upon lung auscultation. Pt has ultrasound guided IV placed this morning in the left AC that after a couple hours infiltrated. MD was made aware and an order for a midline was placed. Pt now has Midline in left upper arm that draws/flushes. Pt family has been at bedside most of shift. Pt currently resting in bed with no complaints at this time.
[2024-04-10 18:46] LABS: Troponin I < 0.01 ng/ml (0.00-0.034)
[2024-04-10 20:33] LABS: POC Glucose,Bedside 176 (70-110)
[2024-04-10] MEDS: SODIUM CHLORIDE 0.9% 10ML VIAL 8 ML IV (21:15)
[2024-04-11] VITALS (12 sets, daily range): BP systolic 112–148; BP diastolic 62–80; PULSE 62–110; RESP 14–20; TEMP 36.3–37.1; O2SAT 95–98; BMI 28.3
--- NOTE | 2024-04-11 01:06 | EXP.PN ---
Subjective *Date: 04/10/24 *Time: 01:06 Interval history: Patient is weak from this morning, hasn't eaten or drank much since surgery 4 days ago. Continues to have neck pain. No signs of airway compromise. ENT consulted. Exam Data for Last 24 hours Vital signs and Labs for Last 24 Hours: Temp Pulse Resp BP Pulse Ox O2 Del Method O2 Flow Rate 97.8 F 80 20 103/64 L 97 Nasal Cannula 2 04/11/24 00:00 04/11/24 00:00 04/10/24 11:00 04/10/24 22:00 04/10/24 22:00 04/10/24 22:00 04/10/24 22:00 Laboratory Results - last 24 hr 04/10/24 04:24: Chlamy pneumoniae PCR Not detected, Adenovirus (PCR) Not detected, B. pertussis DNA (PCR) Not detected, Coronavirus OC43 (PCR) Not detected, Coronavirus HKU1 (PCR) Not detected, Coronavirus 229E (PCR) Not detected, SARS-CoV-2 (PCR) Not detected, Coronavirus NL63 (PCR) Not detected, Human Metapneumovir PCR Not detected, Influenza A (H1) PCR Not detected, Influ A (H1N1/09) PCR Not detected, Influenza A (H3) PCR Not detected, Influenza Type A (PCR) Not detected, Influenza Type B (PCR) Not detected, M. pneumoniae (PCR) Not detected, Parainfluenza 1 (PCR) Not detected, Parainfluenza 2 (PCR) Not detected, Parainfluenza 3 (PCR) Not detected, Parainfluenza 4 (PCR) Not detected, RSV (PCR) Not detected, Entero/Rhino (PCR) Not detected 04/10/24 05:05: POC Glucose 211 H 04/10/24 05:45: WBC 24.1 H* D, RBC 4.56, Hgb 14.2, Hct 43.9, MCV 96.2, MCH 31.1, MCHC 32.3, RDW 14.8, Plt Count 474 H, MPV 7.9, Neut % (Auto) 83.1 H, Lymph % (Auto) 9.5 L, [place] % (Auto) 6.4, Eos % (Auto) 0.2, Baso % (Auto) 0.8, Neut # (Auto) 20.1 H, Lymph # (Auto) 2.3, [place] # (Auto) 1.6 H, Eos # (Auto) 0.1, Baso # (Auto) 0.2, Total Counted 100, Neutrophils % (Manual) 89 H, Lymphocytes % (Manual) 9 L, Monocytes % (Manual) 2, Platelet Estimate Slight increase, RBC Morphology Normal, Sodium 134 L, Potassium 4.5 D, Chloride 108 H, Carbon Dioxide 21 L, Anion Gap 9.5, BUN 12, Creatinine 0.40 L D, Estimated Creat Clear 220, Estimated GFR 173, Est GFR ( Amer) 210 D, Glucose 194 H D, Lactate 0.6 L, Calcium 8.3 L, Magnesium 2.0 D, Troponin I < 0.01, Procalcitonin 0.040 04/10/24 11:25: POC Glucose 149 H 04/10/24 12:20: Troponin I 0.03 04/10/24 17:28: POC Glucose 182 H 04/10/24 18:11: Troponin I < 0.01 04/10/24 20:22: POC Glucose 176 H 04/10/24 : Urine Color [place], Urine Appearance Cloudy, Urine pH 6.5, Ur Specific [place] 1.020, Urine Protein Trace, Urine Glucose (UA) Trace, Urine Ketones 2+, Urine Blood 3+ A, Urine Nitrate Negative, Urine Bilirubin 1+ A, Urine Urobilinogen 1.0, Ur Leukocyte Esterase Negative, Urine RBC Tntc, Urine WBC 3-5, Ur Squamous Epith Cells 3-5, Urine Bacteria 1+, Urine Mucus Trace I & O for Last 24 hours: Intake & Output 04/08/24 04/09/24 04/10/24 04/11/24 23:59 23:59 23:59 23:59 Intake Total 2422 / 2422 Output Total 0 / 0 Balance 242 / 2422 Weight 78.471 kg 77.791 kg Microbiology Reports for the Last 24 Hours: Microbiology 04/09/24 19:45 Blood Blood Culture - Preliminary NO GROWTH AFTER 24 HOURS Constitutional Constitutional: no acute distress *Routine HEENT Exam Head: Present normocephalic Eye: Present EOMI and PERRL ENT: Present mucous membranes moist *Routine Neck Exam Neck: Present supple; Absent lymphadenopathy *Routine Respiratory Exam Respiratory: Present CTA bilaterally *Routine Cardiovascular Exam Cardiovascular: Present RRR *Routine Abdominal Exam Abdominal: Present soft and normoactive bowel sounds; Absent tenderness *Routine Extremities Exam Extremities: Absent cyanosis, clubbing or edema *Routine Skin Exam Skin: Present warm; Absent rash *Routine Neurological Exam Neurological: Present alert and oriented X3 Assessment and Plan *Assessment and plan (1) Supraglottitis: Status: Acute Qualifiers: Airway obstruction: without obstruction Qualified Code(s): J04.30 - Supraglottitis, unspecified, without obstruction Category: Medical Code(s): J04.30 - Supraglottitis, unspecified, without obstruction (2) Enlarged tonsils: Status: Acute Category: Medical Code(s): J35.1 - Hypertrophy of tonsils (3) Nausea & vomiting: Status: Acute Category: Medical Code(s): R11.2 - Nausea with vomiting, unspecified (4) Lymphadenopathy: Status: Acute Category: Medical Code(s): R59.1 - Generalized enlarged lymph nodes (5) Diabetes mellitus, type 2: Status: Acute Qualifiers: Diabetes mellitus long term care administrator insulin use: with correction use Diabetes mellitus complication status: with hypoglycemia Diabetes mellitus complication detail: without coma Qualified Code(s): E11.649 - Type 2 diabetes mellitus with hypoglycemia without coma; Z79.4 - long-term (current) use of insulin Category: Medical Code(s): E11.9 - Type 2 diabetes mellitus without complications (6) Hypertension: Status: Acute Qualifiers: Hypertension type: unspecified Qualified Code(s): I10 - Essential (primary) hypertension Category: Medical Code(s): I10 - Essential (primary) hypertension (7) History of splenectomy: Status: Acute Category: Surgical Code(s): Z90.81 - Acquired absence of spleen (8) Tonsillitis: Status: Acute Category: Medical Code(s): J03.90 - Acute tonsillitis, unspecified Plan 43-year-old female with past medical history of hypertension, diabetes, asplenia who presents status post TNA surgery Sunday with inability drink/eat, SOB, malaise. Patient admitted to ICU for supraglottitis management. Problems as listed below: Supraglottitis Dehydration - No evidence of airway compromise at this time. On 2 L with 97% saturation. - Continues to have pain, IV morphine as needed. - Continue NS @ 100ml/hr. Given an additional 1L NS bolus. - Continue full liquid diet as tolerated. - ENT consulted, no plans for intervention given no evidence of abscess or airway compromise, did not think it was infectious. Recommended continuing steroids. - Leukocytosis bumped from 17.5 to 24.1 this morning, however in the setting of high dose Decadron. - Weaned to Solumedrol 40mg BID. - Continue IV Unasyn given patient has history of splenectomy and high risk for decompensation if there is underlying infection. Asplenia: As above and supraglottitis plus watch patient closely during hospitalization for signs of infection Diabetes: Sign scale insulin, ACHS Accu-Cheks. Hypertension: Continue home management. PPx: Lovenox subcutaneous CODE STATUS full
[2024-04-11] MEDS: MORPHINE 2MG/ML SYRINGE 2 MG IV ×4 (02:58→20:49)
[2024-04-11 05:43] LABS: POC Glucose,Bedside 174 (70-110)
[2024-04-11] MEDS: 0.9 % SODIUM CHLORIDE 1000ML 1,000 ML 100 ML IV ×2 (05:48→18:44)
[2024-04-11] MEDS: AMPICILLIN/SULBACTAM 3 GM in 0.9 % SODIUM CHLORIDE 100 ML IV ×3 (05:48→21:00)
[2024-04-11] MEDS: humaLOG 100 UNITS/ML 10ML VIAL (SSI) SUBCUT ×3 (05:48→16:39)
[2024-04-11 05:56] LABS: Basophils # 0.1 K/mm3 (0-0.2); Basophils % 0.4 % (0.1-2.0); Eosinophils % 0.2 % (0.1-12.0); Hematocrit 37.3 % (37.0-47.0); Lymphocytes # 3.2 K/mm3 (0.7-4.5); Lymphocytes % 11.6 % (10-50); Mean Corpuscular HGB Conc 32.1 g/dL (31.8-35.4); Mean Corpuscular Hemoglobin 30.7 pg (27.0-31.2); Mean Corpuscular Volume 95.6 fl (81-99); Monocytes # 2.7 K/mm3 (0.1-1.0); Monocytes % 9.8 % (1.7-9.3); Neutrophils # 21.6 K/mm3 (1.8-7.8); Platelet Count 471 K/mm3 (142-424); Red Blood Count 3.91 M/mm3 (4.20-5.40); Red Cell Distribution Width 14.9 % (11.5-17.5); White Blood Count 27.6 K/mm3 (4.8-10.8)
[2024-04-11 05:59] LABS: MANUAL DIFFERENTIAL MANUAL DIFFERENTIAL (MANUAL DIFF)
[2024-04-11 06:05] LABS: Alanine Aminotransferase 23 U/L (12-78); Alkaline Phosphatase 110 U/L (38-126); Anion Gap 11.3 mEq/L (5-15); Aspartate Amino Transferase 25 U/L (14-36); Bilirubin,Direct 0.4 mg/dl (0.0-0.4); Bilirubin,Total 0.4 mg/dl (0.2-1.3); Blood Urea Nitrogen 14 mg/dl (7-17); Calcium 8.2 mg/dl (8.4-10.2); Carbon Dioxide 18 mmol/L (22.0-30.0); Chloride 111 mmol/L (98-107); Chol/HDL Ratio 6.2 (1-3.5); Cholesterol 191 mg/dl (140-200); Creatinine Clearance Estimated 151 mL/min (50-200); Estimated Glomerular Filt Rate 109 ml/min (>60); GFR (African American) 131 ML/MIN (>60); Glucose 185 mg/dl (74-100); HDL Cholesterol 31 mg/dl (40-60); Potassium 4.3 mmoL/L (3.5-5.1); Sodium 136 mmol/L (136-145); Total Protein,Serum 5.9 g/dl (6.3-8.2); Triglycerides 144 mg/dl (30-150); VLDL Cholesterol 29 mg/dL (0-40)
[2024-04-11 06:16] LABS: Direct LDL Cholesterol 131.02 mg/dL (100-129)
[2024-04-11 06:22] LABS: Procalcitonin 0.054 ng/mL (0.0-2.0)
[2024-04-11 08:21] LABS: Lymphocytes % 18 % (10-50); Monocytes % 4 % (2-9); Neutrophils % 78 % (42-76); RBC Morphology Normal; Total Cells Counted 100
[2024-04-11 08:22] LABS: Platelet Estimate Slight Increase
[2024-04-11] MEDS: ENOXAPARIN 40MG/0.4ML SYRINGE 40 MG SUBCUT (08:55)
[2024-04-11] MEDS: FAMOTIDINE 20MG/2ML VIAL 20 MG IV ×2 (08:55→20:50)
[2024-04-11] MEDS: SODIUM CHLORIDE 0.9% 10ML VIAL 8 ML IV ×2 (08:55→20:50)
[2024-04-11] MEDS: METHYLPREDNISOLONE SOD SUCC 40MG VIAL 40 MG IV ×2 (08:55→20:49)
--- NOTE | 2024-04-11 11:55 | PC.NURSE ---
Patient oxygenation status 98% on room air at rest
[2024-04-11 12:23] LABS: POC Glucose,Bedside 166 (70-110)
[2024-04-11 16:58] LABS: POC Glucose,Bedside 203 (70-110)
--- NOTE | 2024-04-11 18:17 | PC.NURSE ---
Pain controlled with iv morphine, per md wanting to transition to po lidocaine. Last BM sunday, enema ordered as patient not currently able to swallow. Patient wanting to wait to use enema as she is in no pain, no distention noted and bowel sounds active. Lung sounds clear.
[2024-04-11] MEDS: LIDOCAINE 2% VISCOUS SOL 15ML UDC 10 ML PO ×2 (18:32→21:46)
[2024-04-11 20:45] LABS: POC Glucose,Bedside 132 (70-110)
--- NOTE | 2024-04-11 22:23 | P.PN_ITS ---
Subjective *Date: 04/12/24 *Time: 07:39 Interval history: Weaned to room air today. Still having difficulty swallowing due to pain. Discussed initiating lidocaine, patient amenable to this. Feeling fatigued but better than when she came in. No nausea, vomiting, chest pain or shortness of breath. Medical Exam Vital signs and Labs for Last 24 Hours: Vital Signs Temp Pulse Pulse Resp BP Pulse Ox O2 Del Method 04/11/24 21:00 Room Air 04/11/24 20:00 70 04/11/24 20:00 98.8 F 04/11/24 18:34 Room Air 04/11/24 18:00 80 18 148/80 H 98 Room Air 04/11/24 17:00 Room Air 04/11/24 16:00 100 H 04/11/24 16:00 92 H 18 123/71 98 Room Air 04/11/24 16:00 Room Air 04/11/24 16:00 92 H 18 123/71 98 Room Air 04/11/24 16:00 98.2 F 04/11/24 15:00 Room Air 04/11/24 14:00 72 16 122/71 97 Room Air 04/11/24 13:00 Room Air 04/11/24 12:00 110 H 04/11/24 12:00 98.0 F 04/11/24 11:00 Nasal Cannula 04/11/24 09:00 Nasal Cannula 04/11/24 09:00 65 20 133/68 97 Nasal Cannula 04/11/24 08:15 Nasal Cannula 04/11/24 08:00 70 04/11/24 08:00 97.4 F L 04/11/24 08:00 100 H 20 138/70 97 Nasal Cannula 04/11/24 06:38 Nasal Cannula 04/11/24 06:00 63 14 112/69 96 Nasal Cannula 04/11/24 05:00 Nasal Cannula 04/11/24 04:00 80 04/11/24 04:00 Nasal Cannula 04/11/24 04:00 98.1 F 04/11/24 03:00 Nasal Cannula 04/11/24 02:00 91 H 112/68 95 Nasal Cannula 04/11/24 01:00 Nasal Cannula 04/11/24 00:00 62 114/62 95 Nasal Cannula 04/11/24 00:00 97.8 F 04/11/24 00:00 80 04/10/24 23:00 Nasal Cannula O2 Flow Rate 04/11/24 21:00 04/11/24 20:00 04/11/24 20:00 04/11/24 18:34 04/11/24 18:00 04/11/24 17:00 04/11/24 16:00 04/11/24 16:00 04/11/24 16:00 04/11/24 16:00 04/11/24 16:00 04/11/24 15:00 04/11/24 14:00 04/11/24 13:00 04/11/24 12:00 04/11/24 12:00 04/11/24 11:00 2 04/11/24 09:00 2 04/11/24 09:00 2 04/11/24 08:15 2 04/11/24 08:00 04/11/24 08:00 04/11/24 08:00 2 04/11/24 06:38 2 04/11/24 06:00 2 04/11/24 05:00 2 04/11/24 04:00 04/11/24 04:00 2 04/11/24 04:00 04/11/24 03:00 2 04/11/24 02:00 2 04/11/24 01:00 2 04/11/24 00:00 2 04/11/24 00:00 04/11/24 00:00 04/10/24 23:00 2 Intake and Output 04/11/24 04/11/24 04/11/24 07:59 15:59 23:59 Intake Total 1940 / 4448 1200 / 4448 1308 / 4448 Output Total 0 / 0 Balance 1940 / 4448 1200 / 4448 1308 / 4448 Intake: Intake, Oral Amount 240 / 1680 1200 / 1680 240 / 1680 Intake, Total IV Amount 1700 / 2768 1068 / 2768 0.9 % Sodium Chloride 1000ML 1, 1500 / 2468 968 / 2468 000 ml @ 100 mls/hr IV .Q10H [facility] Rx#:[id number] Ampicillin/Sulbactam 3 gm In 0. 200 / 300 100 / 300 9 % Sodium Chloride 100 ml @ 200 mls/hr IV Q6H [facility] Rx#: [id number] Output: Output, Urine Amount 0 / 0 Other: Number of Unmeasured Voids 1 Weight 79.968 kg Patient Weight 04/11/24 23:59 Weight 79.968 kg Laboratory Results - last 24 hr 04/11/24 05:36: POC Glucose 174 H 04/11/24 05:45: WBC 27.6 H*, RBC 3.91 L, Hgb 12.0 L D, Hct 37.3, MCV 95.6, MCH 30.7, MCHC 32.1, RDW 14.9, Plt Count 471 H, MPV 8.0, Neut % (Auto) 78.0, Lymph % (Auto) 11.6, [place] % (Auto) 9.8 H, Eos % (Auto) 0.2, Baso % (Auto) 0.4, Neut # (Auto) 21.6 H, Lymph # (Auto) 3.2, [place] # (Auto) 2.7 H, Eos # (Auto) 0.0, Baso # (Auto) 0.1, Total Counted 100, Neutrophils % (Manual) 78 H, Lymphocytes % (Manual) 18, Monocytes % (Manual) 4, Platelet Estimate Slight increase, RBC Morphology Normal, Sodium 136, Potassium 4.3, Chloride 111 H, Carbon Dioxide 18 L, Anion Gap 11.3, BUN 14, Creatinine 0.60 D, Estimated Creat Clear 151, Estimated GFR 109, Est GFR ( Amer) 131 D, Glucose 185 H, Calcium 8.2 L, Magnesium 2.0, Total Bilirubin 0.4, Direct Bilirubin 0.4, Conjugated Bilirubin 0.0, Indirect Bilirubin 0.0, Unconjugated Bilirubin 0.0, AST 25 D, ALT 23, Alkaline Phosphatase 110, Total Protein 5.9 L, Albumin 3.0 L D, Triglycerides 144, Cholesterol 191, LDL Cholesterol Direct 131.02 H, VLDL Cholesterol 29, HDL Cholesterol 31 L, Cholesterol/HDL Ratio 6.2 H, Procalcitonin 0.054 04/11/24 11:50: POC Glucose 166 H 04/11/24 16:33: POC Glucose 203 H 04/11/24 20:36: POC Glucose 132 H I & O for Labs for Last 24 Hours: Intake & Output 04/08/24 04/09/24 04/10/24 04/11/24 23:59 23:59 23:59 23:59 Intake Total 2422 / 2762 4448 / 4448 Output Total 0 / 0 0 / 0 Balance 242 / 2 4448 / 4448 Weight 78.471 kg 77.791 kg 79.968 kg Microbiology Reports for the Last 24 Hours: Microbiology 04/09/24 19:45 Blood Blood Culture - Preliminary NO GROWTH AFTER 48 HOURS 04/10/24 05:45 Blood Blood Culture - Preliminary NO GROWTH AFTER 24 HOURS Constitutional: Present mild distress, average body habitus and cooperative Head: Present atraumatic Comment:: persistent bilateral cervical tenderness and swelling, Neck: Present tenderness and lymphadenopathy Respiratory: Present normal respiratory effort; Absent rhonchi, wheezes or c rackles Cardiac: Present Reg Rate and Rhythm GI: Present soft and normal bowel sounds; Absent distention or tenderness Extremities: Present normal inspection and full ROM; Absent edema Skin: Present intact; Absent erythema Neuro: Present Grossly Intact, alert, awake, oriented x 3 and moves all extremities Assessment and Plan *Assessment and plan (1) Supraglottitis: Status: Acute Qualifiers: Airway obstruction: without obstruction Qualified Code(s): J04.30 - Supraglottitis, unspecified, without obstruction Category: Medical Code(s): J04.30 - Supraglottitis, unspecified, without obstruction (2) Enlarged tonsils: Status: Acute Category: Medical Code(s): J35.1 - Hypertrophy of tonsils (3) Nausea & vomiting: Status: Acute Category: Medical Code(s): R11.2 - Nausea with vomiting, unspecified (4) Lymphadenopathy: Status: Acute Category: Medical Code(s): R59.1 - Generalized enlarged lymph nodes (5) Diabetes mellitus, type 2: Status: Acute Qualifiers: Diabetes mellitus complication detail: without coma Diabetes mellitus complication status: with hypoglycemia Diabetes mellitus skilled nursing insulin use: with intermediate teacher use Qualified Code(s): E11.649 - Type 2 diabetes mellitus with hypoglycemia without coma; Z79.4 - terminal block assembler (current) use of insulin Category: Medical Code(s): E11.9 - Type 2 diabetes mellitus without complications (6) Hypertension: Status: Acute Qualifiers: Hypertension type: unspecified Qualified Code(s): I10 - Essential (primary) hypertension Category: Medical Code(s): I10 - Essential (primary) hypertension (7) History of splenectomy: Status: Acute Category: Surgical Code(s): Z90.81 - Acquired absence of spleen (8) Tonsillitis: Status: Acute Category: Medical Code(s): J03.90 - Acute tonsillitis, unspecified Plan 43-year-old female with past medical history of hypertension, diabetes, asplenia who presents status post TNA surgery Sunday with inability drink/eat, SOB, malaise. De-escalated to stepdown level of care. Continues to have poor p.o. intake and intolerance of nutrition. Adding viscous lidocaine in hopes of advancing diet/p.o. liquids. Continues to require inpatient management. Problems addressed as follows: Supraglottitis Dehydration - No evidence of airway compromise at this time. Mid 90s on room air. - Continues to have pain, IV morphine as needed. - Continue NS @ 100ml/hr. - Continue full liquid diet as tolerated. - initiate PO viscous lidocaine q4hp - ENT consulted, no plans for intervention given no evidence of abscess or airway compromise, did not think it was infectious. Recommended continuing steroids. monitor for improvement and tolerance of diet - Leukocytosis up to 27 after steroids, no fevers, suspect reactive from inflammation and steroids. -Repeat CBC, CMP, magnesium ordered for the morning. Kidney function normal with BUN 14, creatinine 0.6. Magnesium stable at 2 - continue solumedrol 40mg BID. - Continue IV Unasyn given patient has history of splenectomy and high risk for decompensation if there is underlying infection. Asplenia: As above and supraglottitis plus watch patient closely during hospitalization for signs of infection Diabetes: Sign scale insulin, ACHS Accu-Cheks. Hypertension: Continue home management. PPx: Lovenox subcutaneous CODE STATUS full full liquid diet
[2024-04-12] VITALS (12 sets, daily range): BP systolic 109–140; BP diastolic 59–101; PULSE 76–120; RESP 14–20; TEMP 36.5–36.8; O2SAT 92–98; BMI 28.3
[2024-04-12] MEDS: humaLOG 100 UNITS/ML 10ML VIAL (SSI) SUBCUT ×4 (05:11→21:10)
[2024-04-12] MEDS: AMPICILLIN/SULBACTAM 3 GM in 0.9 % SODIUM CHLORIDE 100 ML IV ×3 (05:11→21:10)
[2024-04-12 05:12] LABS: POC Glucose,Bedside 236 (70-110)
[2024-04-12] MEDS: 0.9 % SODIUM CHLORIDE 1000ML 1,000 ML 100 ML IV (06:27)
[2024-04-12 07:07] LABS: Albumin Level 3.3 g/dl (3.5-5.0); Chloride 111 mmol/L (98-107); Sodium 134 mmol/L (136-145)
[2024-04-12 07:08] LABS: Basophils # 0.1 K/mm3 (0-0.2); Basophils % 0.4 % (0.1-2.0); Eosinophils # 0.1 K/mm3 (0.0-0.4); Eosinophils % 0.2 % (0.1-12.0); Hematocrit 38.5 % (37.0-47.0); Hemoglobin 12.8 g/dL (12.2-16.2); Lymphocytes # 2.5 K/mm3 (0.7-4.5); Lymphocytes % 9.1 % (10-50); Mean Corpuscular HGB Conc 33.3 g/dL (31.8-35.4); Mean Corpuscular Hemoglobin 31.6 pg (27.0-31.2); Mean Corpuscular Volume 95.1 fl (81-99); Mean Platelet Volume 8.1 fl (7.4-10.4); Monocytes # 2.2 K/mm3 (0.1-1.0); Monocytes % 8.1 % (1.7-9.3); Neutrophils # 22.3 K/mm3 (1.8-7.8); Neutrophils % 82.1 % (37.0-80.0); Platelet Count 483 K/mm3 (142-424); Potassium 4.1 mmoL/L (3.5-5.1); Red Blood Count 4.05 M/mm3 (4.20-5.40); Red Cell Distribution Width 14.7 % (11.5-17.5); White Blood Count 27.1 K/mm3 (4.8-10.8)
[2024-04-12 07:10] LABS: Alanine Aminotransferase 20 U/L (12-78); Albumin/Globulin Ratio 1.1 (1.1-1.8); Alkaline Phosphatase 118 U/L (38-126); Anion Gap 15.1 mEq/L (5-15); Aspartate Amino Transferase 22 U/L (14-36); Bilirubin,Total 0.6 mg/dl (0.2-1.3); Blood Urea Nitrogen 12 mg/dl (7-17); Carbon Dioxide 12 mmol/L (22.0-30.0); Creatinine Clearance Estimated 181 mL/min (50-200); Estimated Glomerular Filt Rate 134 ml/min (>60); GFR (African American) 162 ML/MIN (>60); Globulin 3.1 g/dL (1.3-3.2); MANUAL DIFFERENTIAL MANUAL DIFFERENTIAL (MANUAL DIFF); Total Protein,Serum 6.4 g/dl (6.3-8.2)
[2024-04-12 07:11] LABS: Calcium 8.6 mg/dl (8.4-10.2); Glucose 234 mg/dl (74-100)
[2024-04-12 07:16] LABS: C-Reactive Protein 157.2 mg/L (0-4)
[2024-04-12 07:26] LABS: Magnesium 2.1 mg/dl (1.6-2.3)
--- NOTE | 2024-04-12 07:45 | P.PN_ITS ---
Subjective *Date: 04/12/24 *Time: 18:18 Interval history: Slight improvement this morning. Able to tolerate some juice and Jell-O with lidocaine. Stable on room air. Afebrile. Inflammatory markers remain elevated. No nausea or vomiting. Afebrile overnight. Medical Exam Vital signs and Labs for Last 24 Hours: Vital Signs Temp Pulse Pulse Resp BP Pulse Ox O2 Del Method 04/12/24 06:33 Room Air 04/12/24 06:00 91 H 20 128/68 94 L Room Air 04/12/24 05:00 Room Air 04/12/24 04:00 100 H 04/12/24 04:00 Room Air 04/12/24 04:00 94 H 16 109/59 L 95 Room Air 04/12/24 04:00 97.7 F 04/12/24 03:00 Room Air 04/12/24 02:00 76 16 123/62 92 L Room Air 04/12/24 01:00 Room Air 04/12/24 00:00 90 04/12/24 00:00 97 H 14 122/68 96 Room Air 04/12/24 00:00 98.3 F 04/11/24 23:00 Room Air 04/11/24 22:00 97 H 15 132/69 98 Room Air 04/11/24 21:00 Room Air 04/11/24 20:00 Room Air 04/11/24 20:00 88 20 140/79 96 Room Air 04/11/24 20:00 70 04/11/24 20:00 98.8 F 04/11/24 18:34 Room Air 04/11/24 18:00 80 18 148/80 H 98 Room Air 04/11/24 17:00 Room Air 04/11/24 16:00 100 H 04/11/24 16:00 92 H 18 123/71 98 Room Air 04/11/24 16:00 Room Air 04/11/24 16:00 92 H 18 123/71 98 Room Air 04/11/24 16:00 98.2 F 04/11/24 15:00 Room Air 04/11/24 14:00 72 16 122/71 97 Room Air 04/11/24 13:00 Room Air 04/11/24 12:00 110 H 04/11/24 12:00 98.0 F 04/11/24 11:00 Nasal Cannula 04/11/24 09:00 Nasal Cannula 04/11/24 09:00 65 20 133/68 97 Nasal Cannula 04/11/24 08:15 Nasal Cannula 04/11/24 08:00 70 04/11/24 08:00 97.4 F L 04/11/24 08:00 100 H 20 138/70 97 Nasal Cannula O2 Flow Rate 04/12/24 06:33 04/12/24 06:00 04/12/24 05:00 04/12/24 04:00 04/12/24 04:00 04/12/24 04:00 04/12/24 04:00 04/12/24 03:00 04/12/24 02:00 04/12/24 01:00 04/12/24 00:00 04/12/24 00:00 04/12/24 00:00 04/11/24 23:00 04/11/24 22:00 04/11/24 21:00 04/11/24 20:00 04/11/24 20:00 04/11/24 20:00 04/11/24 20:00 04/11/24 18:34 04/11/24 18:00 04/11/24 17:00 04/11/24 16:00 04/11/24 16:00 04/11/24 16:00 04/11/24 16:00 04/11/24 16:00 04/11/24 15:00 04/11/24 14:00 04/11/24 13:00 04/11/24 12:00 04/11/24 12:00 04/11/24 11:00 2 04/11/24 09:00 2 04/11/24 09:00 2 04/11/24 08:15 2 04/11/24 08:00 04/11/24 08:00 04/11/24 08:00 2 Intake and Output 04/11/24 04/11/24 04/12/24 15:59 23:59 07:59 Intake Total 1200 / 4448 1308 / 4448 1135 / 1135 Output Total 0 / 0 0 / 0 Balance 1200 / 4448 1308 / 4448 1135 / 1135 Intake: Intake, Oral Amount 1200 / 1680 240 / 1680 Intake, Total IV Amount 1068 / 2768 1135 / 1135 0.9 % Sodium Chloride 1000ML 1, 968 / 2468 935 / 935 000 ml @ 100 mls/hr IV .Q10H [facility] Rx#:[id number] Ampicillin/Sulbactam 3 gm In 0. 100 / 300 200 / 200 9 % Sodium Chloride 100 ml @ 200 mls/hr IV Q6H [facility] Rx#: [id number] Output: Output, Urine Amount 0 / 0 0 / 0 Other: Number of Unmeasured Voids 1 1 Weight 79.968 kg Patient Weight 04/12/24 23:59 Weight 79.968 kg Laboratory Results - last 24 hr 04/11/24 05:45: Total Counted 100, Neutrophils % (Manual) 78 H, Lymphocytes % (Manual) 18, Monocytes % (Manual) 4, Platelet Estimate Slight increase, RBC Morphology Normal 04/11/24 11:50: POC Glucose 166 H 04/11/24 16:33: POC Glucose 203 H 04/11/24 20:36: POC Glucose 132 H 04/12/24 05:05: POC Glucose 236 H 04/12/24 06:45: WBC 27.1 H*, RBC 4.05 L, Hgb 12.8, Hct 38.5, MCV 95.1, MCH 31.6 H, MCHC 33.3, RDW 14.7, Plt Count 483 H, MPV 8.1, Neut % (Auto) 82.1 H, Lymph % (Auto) 9.1 L, [place] % (Auto) 8.1, Eos % (Auto) 0.2, Baso % (Auto) 0.4, Neut # (Auto) 22.3 H, Lymph # (Auto) 2.5, [place] # (Auto) 2.2 H, Eos # (Auto) 0.1, Baso # (Auto) 0.1, Sodium 134 L, Potassium 4.1, Chloride 111 H, Carbon Dioxide 12 L, An ion Gap 15.1 H, BUN 12, Creatinine 0.50 L, Estimated Creat Clear 181, Estimated GFR 134, Est GFR ( Amer) 162 D, Glucose 234 H, Calcium 8.6, Magnesium 2.1, Total Bilirubin 0.6, AST 22, ALT 20, Alkaline Phosphatase 118, C-Reactive Protein 157.2 H, Total Protein 6.4, Albumin 3.3 L, Globulin 3.1, Albumin/Globulin Ratio 1.1 I & O for Labs for Last 24 Hours: Intake & Output 04/09/24 04/10/24 04/11/24 04/12/24 23:59 23:59 23:59 23:59 Intake Total 2422 / 2762 4448 / 4448 1135 / 1135 Output Total 0 / 0 0 / 0 0 / 0 Balance 2422 / 2762 4448 / 4448 1135 / 1135 Weight 78.471 kg 77.791 kg 79.968 kg 79.968 kg Microbiology Reports for the Last 24 Hours: Microbiology 04/10/24 05:45 Blood Blood Culture - Preliminary NO GROWTH AFTER 48 HOURS 04/09/24 19:45 Blood Blood Culture - Preliminary NO GROWTH AFTER 48 HOURS Constitutional: Present mild distress, average body habitus and cooperative Head: Present atraumatic Comment:: persistent bilateral cervical tenderness and swelling, Neck: Present tenderness and lymphadenopathy Respiratory: Present normal respiratory effort; Absent rhonchi, wheezes or crackles Cardiac: Present Reg Rate and Rhythm GI: Present soft and normal bowel sounds; Absent distention or tenderness Extremities: Present normal inspection and full ROM; Absent edema Skin: Present intact; Absent erythema Neuro: Present Grossly Intact, alert, awake, oriented x 3 and moves all extremities Assessment and Plan *Assessment and plan (1) Supraglottitis: Status: Acute Qualifiers: Airway obstruction: without obstruction Qualified Code(s): J04.30 - Supraglottitis, unspecified, without obstruction Category: Medical Code(s): J04.30 - Supraglottitis, unspecified, without obstruction (2) Enlarged tonsils: Status: Acute Category: Medical Code(s): J35.1 - Hypertrophy of tonsils (3) Nausea & vomiting: Status: Acute Category: Medical Code(s): R11.2 - Nausea with vomiting, unspecified (4) Lymphadenopathy: Status: Acute Category: Medical Code(s): R59.1 - Generalized enlarged lymph nodes (5) Diabetes mellitus, type 2: Status: Acute Qualifiers: Diabetes mellitus complication detail: without coma Diabetes mellitus complication status: with hypoglycemia Diabetes mellitus custodial insulin use: with terminal gauger use Qualified Code(s): E11.649 - Type 2 diabetes mellitus with hypoglycemia without coma; Z79.4 - long term care pharmacist (current) use of insulin Category: Medical Code(s): E11.9 - Type 2 diabetes mellitus without complications (6) Hypertension: Status: Acute Qualifiers: Hypertension type: unspecified Qualified Code(s): I10 - Essential (primary) hypertension Category: Medical Code(s): I10 - Essential (primary) hypertension (7) History of splenectomy: Status: Acute Category: Surgical Code(s): Z90.81 - Acquired absence of spleen (8) Tonsillitis: Status: Acute Category: Medical Code(s): J03.90 - Acute tonsillitis, unspecified Plan 43-year-old female with past medical history of hypertension, diabetes, asplenia who presents status post TNA surgery Sunday with inability drink/eat, SOB, malaise. De-escalated to stepdown level of care. Continues to have poor p.o. i ntake and intolerance of nutrition. Seeing some improvement in p.o. intake with viscous lidocaine. If tolerating liquids and oral medications, will meet criteria to discharge home. Continues to require inpatient management. Problems addressed as follows: Supraglottitis Dehydration - No evidence of airway compromise at this time. Mid 90s on room air. - Continues to have pain, IV morphine as needed. Has not used morphine since yesterday afternoon. -Discontinue IV fluids. - Continue full liquid diet as tolerated. -Continue PO viscous lidocaine q4hp - ENT consulted, no plans for intervention given no evidence of abscess or airway compromise, did not think it was infectious. Recommended continuing steroids. monitor for improvement and tolerance of diet - Leukocytosis remains up at 27 after steroids, no fevers, suspect reactive from inflammation and steroids.; Inflammatory markers elevated with CRP 157, ESR 84. -Repeat CBC, CMP, magnesium ordered for the morning. Kidney function normal with BUN 12, creatinine 0.5. Magnesium stable at 2.1 - continue solumedrol 40mg BID. - Continue IV Unasyn given patient has history of splenectomy and high risk for decompensation if there is underlying infection. Asplenia: As above and supraglottitis plus watch patient closely during hospitalization for signs of infection Diabetes: Sign scale insulin, ACHS Accu-Cheks. Hypertension: Continue home management. PPx: Lovenox subcutaneous CODE STATUS full full liquid diet
[2024-04-12 08:03] LABS: Erythrocyte Sedimentation Rate 84 mm/hr (0-20)
[2024-04-12] MEDS: LIDOCAINE 2% VISCOUS SOL 15ML UDC 10 ML PO ×3 (08:15→22:44)
[2024-04-12] MEDS: SODIUM CHLORIDE 0.9% 10ML VIAL 8 ML IV (08:17)
[2024-04-12] MEDS: FAMOTIDINE 20MG/2ML VIAL 20 MG IV (08:17)
[2024-04-12] MEDS: METHYLPREDNISOLONE SOD SUCC 40MG VIAL 40 MG IV ×2 (08:17→21:10)
[2024-04-12] MEDS: ENOXAPARIN 40MG/0.4ML SYRINGE 40 MG SUBCUT (08:18)
[2024-04-12 10:06] LABS: Lymphocytes % 13 % (10-50); Monocytes % 3 % (2-9); Neutrophils % 83 % (42-76); RBC Morphology Normal; Total Cells Counted 100
[2024-04-12 10:07] LABS: Platelet Estimate Slight Increase
[2024-04-12 11:41] LABS: POC Glucose,Bedside 220 (70-110)
--- NOTE | 2024-04-12 15:39 | PC.NURSE ---
Patient able to swallow some pudding, sherbert, and drink apple juice. VS stable and patient remained on room air. Lung sounds clear. Pain in throat controlled with lidocaine.
[2024-04-12] MEDS: NYSTATIN SUSP 500,000 UNITS/5ML UDC 500000 UNIT PO ×2 (17:13→21:10)
[2024-04-12 17:23] LABS: POC Glucose,Bedside 238 (70-110)
[2024-04-12] MEDS: FAMOTIDINE 20MG TABLET 20 MG PO (21:10)
[2024-04-13] VITALS: BP 147/81; PULSE 90; PULSE 92; RESP 16; TEMP 36.6; O2SAT 95
[2024-04-13 04:00] VITALS: BP 152/88; PULSE 100; PULSE 92; RESP 16; TEMP 36.4; O2SAT 97; BMI 26.4
[2024-04-13 05:38] LABS: Albumin Level 3.5 g/dl (3.5-5.0); Chloride 110 mmol/L (98-107)
[2024-04-13 05:39] LABS: Potassium 4.3 mmoL/L (3.5-5.1); Sodium 134 mmol/L (136-145)
[2024-04-13] MEDS: LIDOCAINE 2% VISCOUS SOL 15ML UDC 10 ML PO (05:39)
[2024-04-13] MEDS: AMPICILLIN/SULBACTAM 3 GM in 0.9 % SODIUM CHLORIDE 100 ML IV (05:40)
[2024-04-13] MEDS: humaLOG 100 UNITS/ML 10ML VIAL (SSI) SUBCUT ×2 (05:40→11:15)
[2024-04-13 05:41] LABS: Alanine Aminotransferase 18 U/L (12-78); Anion Gap 16.3 mEq/L (5-15); Aspartate Amino Transferase 17 U/L (14-36); Blood Urea Nitrogen 17 mg/dl (7-17); Carbon Dioxide 12 mmol/L (22.0-30.0); Creatinine Clearance Estimated 169 mL/min (50-200); Estimated Glomerular Filt Rate 134 ml/min (>60); GFR (African American) 162 ML/MIN (>60)
[2024-04-13 05:42] LABS: Albumin/Globulin Ratio 1.1 (1.1-1.8); Alkaline Phosphatase 115 U/L (38-126); Bilirubin,Total 0.6 mg/dl (0.2-1.3); Calcium 9.1 mg/dl (8.4-10.2); Globulin 3.1 g/dL (1.3-3.2); Glucose 277 mg/dl (74-100); Total Protein,Serum 6.6 g/dl (6.3-8.2)
[2024-04-13 06:14] LABS: POC Glucose,Bedside 253 (70-110)
[2024-04-13 06:55] LABS: POC Glucose,Bedside 181 (70-110)
[2024-04-13 07:52] LABS: Hematocrit 38.6 % (37.0-47.0); Hemoglobin 12.8 g/dL (12.2-16.2); Red Blood Count 4.21 M/mm3 (4.20-5.40); White Blood Count 15.8 K/mm3 (4.8-10.8)
[2024-04-13 07:53] LABS: Basophils % 0.1 % (0.1-2.0); Lymphocytes # 1.7 K/mm3 (0.7-4.5); Lymphocytes % 10.5 % (10-50); Mean Corpuscular HGB Conc 33.2 g/dL (31.8-35.4); Mean Corpuscular Hemoglobin 30.4 pg (27.0-31.2); Mean Corpuscular Volume 91.7 fl (81-99); Mean Platelet Volume 10.6 fl (7.4-10.4); Monocytes % 4.5 % (1.7-9.3); Neutrophils # 12.5 K/mm3 (1.8-7.8); Neutrophils % 79.2 % (37.0-80.0); Platelet Count 529 K/mm3 (142-424); Red Cell Distribution Width 14.5 % (11.5-17.5)
[2024-04-13 07:54] LABS: Monocytes # 0.7 K/mm3 (0.1-1.0)
[2024-04-13 07:55] LABS: MANUAL DIFFERENTIAL MANUAL DIFFERENTIAL (MANUAL DIFF)
[2024-04-13 08:00] VITALS: BP 134/79; PULSE 95; RESP 16; TEMP 36.6; O2SAT 100
[2024-04-13] MEDS: ENOXAPARIN 40MG/0.4ML SYRINGE 40 MG SUBCUT (08:52)
[2024-04-13] MEDS: DEXAMETHASONE 4MG/ML 1ML VIAL 6 MG IV (08:52)
[2024-04-13] MEDS: FAMOTIDINE 20MG TABLET 20 MG PO (08:52)
[2024-04-13] MEDS: NYSTATIN SUSP 500,000 UNITS/5ML UDC 500000 UNIT PO (08:54)
[2024-04-13 09:28] LABS: Lymphocytes % 22 % (10-50); Monocytes % 5 % (2-9); Neutrophils % 73 % (42-76); Total Cells Counted 100
[2024-04-13 09:29] LABS: Platelet Estimate Slight Increase; RBC Morphology Normal
--- NOTE | 2024-04-13 10:01 | EXP.PHA.PN ---
Subjective *Date: 04/13/24 *Time: 10:01 Medical Exam Vital signs and Labs for Last 24 Hours: Vital Signs Temp Pulse Pulse Resp BP Pulse Ox O2 Del Method 04/13/24 09:00 Room Air 04/13/24 08:00 Room Air 04/13/24 08:00 98 F 95 H 16 134/79 100 Room Air 04/13/24 06:39 Room Air 04/13/24 05:00 Room Air 04/13/24 04:00 100 H 04/13/24 04:00 97.5 F L 92 H 16 152/88 H 97 Room Air 04/13/24 03:00 Room Air 04/13/24 01:00 Room Air 04/13/24 00:00 90 04/13/24 00:00 97.9 F 92 H 16 147/81 H 95 Room Air 04/12/24 23:00 Room Air 04/12/24 21:00 Room Air 04/12/24 20:00 80 04/12/24 20:00 Room Air 04/12/24 20:00 98.3 F 92 H 16 123/89 98 Room Air 04/12/24 18:33 Room Air 04/12/24 17:05 Room Air 04/12/24 16:00 100 H 04/12/24 16:00 85 16 133/75 94 L Room Air 04/12/24 15:52 Room Air 04/12/24 15:00 Room Air 04/12/24 14:00 102 H 18 133/91 H 97 Room Air 04/12/24 13:38 107 H 16 119/101 H 97 Room Air 04/12/24 13:00 Room Air 04/12/24 12:00 90 04/12/24 11:00 Room Air Intake and Output 04/12/24 04/13/24 04/13/24 23:59 07:59 15:59 Intake Total 440 / 1280 840 / 1280 Output Total 0 / 0 0 / 0 Balance 2114 440 / 1280 840 / 1280 Intake: Intake, Oral Amount 240 / 1080 840 / 1080 Intake, Total IV Amount 200 / 200 Ampicillin/Sulbactam 3 gm In 0. 200 / 200 9 % Sodium Chloride 100 ml @ 200 mls/hr IV Q6H [facility] Rx#: [id number] Output: Output, Urine Amount 0 / 0 0 / 0 Other: Number of Unmeasured Voids 1 2 Number of Bowel Movements 1 2 Weight 74.707 kg Patient Weight 04/13/24 23:59 Weight 74.707 kg Laboratory Results - last 24 hr 04/12/24 06:45: Total Counted 100, Neutrophils % (Manual) 83 H, Lymphocytes % (Manual) 13, Atypical Lymphs % 1.0, Monocytes % (Manual) 3, Platelet Estimate Slight increase, RBC Morphology Normal 04/12/24 11:34: POC Glucose 220 H 04/12/24 17:12: POC Glucose 238 H 04/12/24 19:59: POC Glucose 181 H 04/13/24 05:23: WBC 15.8 H D, RBC 4.21, Hgb 12.8, Hct 38.6, MCV 91.7, MCH 30.4, MCHC 33.2, RDW 14.5, Plt Count 529 H, MPV 10.6 H, Neut % (Auto) 79.2, Lymph % (Auto) 10.5, [place] % (Auto) 4.5, Eos % (Auto) 0.0 L, Baso % (Auto) 0.1, Neut # (Auto) 12.5 H, Lymph # (Auto) 1.7, [place] # (Auto) 0.7, Eos # (Auto) 0.0, Baso # (Auto) 0.0, Total Counted 100, Neutrophils % (Manual) 73, Lymphocytes % (Manual) 22, Monocytes % (Manual) 5, Platelet Estimate Slight increase, RBC Morphology Normal, Sodium 134 L, Potassium 4.3, Chloride 110 H, Carbon Dioxide 12 L, Anion Gap 16.3 H, BUN 17 D, Creatinine 0.50 L, Estimated Creat Clear 169, Estimated GFR 134, Est GFR ( Amer) 162, Glucose 277 H, Calcium 9.1, Total Bilirubin 0.6, AST 17, ALT 18, Alkaline Phosphatase 115, Total Protein 6.6, Albumin 3.5, Globulin 3.1, Albumin/Globulin Ratio 1.1 04/13/24 05:26: POC Glucose 253 H I & O for Labs for Last 24 Hours: Intake & Output 04/10/24 04/11/24 04/12/24 04/13/24 23:59 23:59 23:59 23:59 Intake Total 2422 / 2762 4448 / 4448 1775 / 2115 1280 / 1280 Output Total 0 / 0 0 / 0 0 / 0 0 / 0 Balance 2422 / 2762 4448 / 4448 1774 1280 / 1280 Weight 77.791 kg 79.968 kg 79.968 kg 74.707 kg Microbiology Reports for the Last 24 Hours: Microbiology 04/10/24 05:45 Blood Blood Culture - Preliminary NO GROWTH AFTER 48 HOURS The patient's infection will respond to the chosen ABx?: Yes Is the patient receiving the right drug, dose, and route?: Yes Could a more targeted ABx be ordered?: No (AFEBRILE, WBC DECREASING, NO GROWTH IN CULTURES)
--- NOTE | 2024-04-13 11:19 | P.DS_ITS ---
General Admission date:: 04/10/24 Discharge date: 04/13/24 HPI HPI HPI: 43-year-old female with past medical history of hypertension, diabetes, asplenia who presents status post T&A surgery Sunday04/07/24 with inability drink/eat, SOB, malaise. Patient admitted to ICU for supraglottitis management. Patient reports inadequate liquid/solid intake since surgery on Sunday. States when she attempts to drink liquid, it comes out of her nose. Also reports decreased p.o. intake. also reports that patient has been short of breath over the last couple days. Denies chest pain, fevers, chills, known sick contacts. Hospital Course Hospital Course Hospital Course: 43-year-old female with past medical history of hypertension, diabetes, asplenia who presents status post TNA surgery Sunday with inability drink/eat, SOB, malaise. Patient was initially in ICU due to poor p.o. tolerance and risk for respiratory decompensation given swelling in her throat. Showed gradual improvement. Tolerated antibiotics and steroids. ENT assisted with care during admission. Gradually able to advance diet to liquids using viscous lidocaine to help numb throat. Tolerating p.o. medications. At this time given her improvement in white count, tolerance of p.o. nutrition, stable to discharge home. Close follow-up with ENT. Problems addressed as follows: Supraglottitis Dehydration Thrush -Presented with difficulty swallowing, dehydration, sore throat after removal of tonsils Sunday before admission. ENT was consulted. Aggressive pain regimen during admission. Showed gradual improvement with gradual decrease in white count by day of discharge to 16. As her electrolytes and kidney function remained normal, fluids were discontinued. Diet was gradually advanced from clears to full liquid. Initiated viscous lidocaine and nystatin due to oral thrush to help with easing discomfort in her mouth and throat. Showed gradual advancement to full liquid diet. ENT was consulted during admission. There is no evidence of abscess or airway compromise. Recommended continuing steroids and monitoring. Leukocytosis was elevated at approximately 30 and gradually improved to 16 with inflammatory markers gradually improving as well. Still elevated at discharge but significantly improving. Discontinued steroids at discharge. Complete short course of antibiotics. Complete an additional week of nystatin. Discharged with viscous lidocaine to ease discomfort for improved p.o. nutrition tolerance. Follow-up with ENT as scheduled. Asplenia: As above and supraglottitis plus watch patient closely during hospitalization for signs of infection Diabetes: Sign scale insulin, ACHS Accu-Cheks. Resume home regimen at discharge Hypertension: Continue home management. Of note, patient was bradycardic during admission. Cardiology was consulted. Beta-hailey was held. Continue to hold at discharge until follow-up with cardiology. Total time spent on discharge 32 minutes in counseling, documentation, chart review, and direct care with patient. Exam Data for Last 24 hours Vital signs and Labs for Last 24 Hours: Temp Pulse Resp BP Pulse Ox O2 Del Method O2 Flow Rate 98 F 95 H 16 134/79 100 Room Air 2 04/13/24 08:00 04/13/24 08:00 04/13/24 08:00 04/13/24 08:00 04/13/24 08:00 04/13/24 11:00 04/11/24 11:00 Laboratory Results - last 24 hr 04/12/24 11:34: POC Glucose 220 H 04/12/24 17:12: POC Glucose 238 H 04/12/24 19:59: POC Glucose 181 H 04/13/24 05:23: WBC 15.8 H D, RBC 4.21, Hgb 12.8, Hct 38.6, MCV 91.7, MCH 30.4, MCHC 33.2, RDW 14.5, Plt Count 529 H, MPV 10.6 H, Neut % (Auto) 79.2, Lymph % (Auto) 10.5, [place] % (Auto) 4.5, Eos % (Auto) 0.0 L, Baso % (Auto) 0.1, Neut # (Auto) 12.5 H, Lymph # (Auto) 1.7, [place] # (Auto) 0.7, Eos # (Auto) 0.0, Baso # (Auto) 0.0, Total Counted 100, Neutrophils % (Manual) 73, Lymphocytes % (Manual) 22, Monocytes % (Manual) 5, Platelet Estimate Slight increase, RBC Morphology Normal, Sodium 134 L, Potassium 4.3, Chloride 110 H, Carbon Dioxide 12 L, Anion Gap 16.3 H, BUN 17 D, Creatinine 0.50 L, Estimated Creat Clear 169, Estimated GFR 134, Est GFR ( Amer) 162, Glucose 277 H, Calcium 9.1, Total Bilirubin 0.6, AST 17, ALT 18, Alkaline Phosphatase 115, Total Protein 6.6, Albumin 3.5, Globulin 3.1, Albumin/Globulin Ratio 1.1 04/13/24 05:26: POC Glucose 253 H I & O for Last 24 hours: Intake & Output 04/10/24 04/11/24 04/12/24 04/13/24 23:59 23:59 23:59 23:59 Intake Total 2422 / 2762 4448 / 4448 177 / 2114 1280 / 1280 Output Total 0 / 0 0 / 0 0 / 0 0 / 0 Balance 2422 / 2762 4448 / 4448 177 / 2114 1280 / 1280 Weight 77.791 kg 79.968 kg 79.968 kg 74.707 kg Constitutional Constitutional: no acute distress, obese and cooperative *Routine HEENT Exam Head: Present normocephalic Eye: Present EOMI and PERRL ENT: Present mucous membranes moist Comments: Eschar stable in throat. Thrush improving. *Routine Neck Exam Neck: Present supple and lymphadenopathy (Tender with interval improvement) *Routine Respiratory Exam Respiratory: Present CTA bilaterally; Absent rhonchi, wheezes or crackles *Routine Cardiovascular Exam Cardiovascular: Present RRR *Routine Abdominal Exam Abdominal: Present soft and normoactive bowel sounds; Absent tenderness *Routine Rectal Exam Patient deferred: visual exam *Routine Exam Patient deferred: external exam *Routine Extremities Exam Extremities: Absent cyanosis, clubbing or edema *Routine Skin Exam Skin: Present intact and warm; Absent cyanosis or rash *Routine Neurological Exam Neurological: Present alert, oriented X3 and moving all extremities; Absent altered mental status Routine Psychiatric Exam Psychiatric: Present normal affect Results Data Completed and Pending Labs on day of discharge: Labs from last 24 hours 04/13/24 04/13/24 04/12/24 05:26 05:23 19:59 WBC 15.8 H D RBC 4.21 Hgb 12.8 Hct 38.6 MCV 91.7 MCH 30.4 MCHC 33.2 RDW 14.5 Plt Count 529 H MPV 10.6 H Neut % (Auto) 79.2 Lymph % (Auto) 10.5 [place] % (Auto) 4.5 Eos % (Auto) 0.0 L Baso % (Auto) 0.1 Neut # (Auto) 12.5 H Lymph # (Auto) 1.7 [place] # (Auto) 0.7 Eos # (Auto) 0.0 Baso # (Auto) 0.0 Total Counted 100 Neutrophils % (Manual) 73 Lymphocytes % (Manual) 22 Monocytes % (Manual) 5 Platelet Estimate Slight increase RBC Morphology Normal Sodium 134 L Potassium 4.3 Chloride 110 H Carbon Dioxide 12 L Anion Gap 16.3 H BUN 17 D Creatinine 0.50 L Estimated Creat Clear 169 Estimated GFR 134 Est GFR ( Amer) 162 Glucose 277 H POC Glucose 253 H 181 H Calcium 9.1 Total Bilirubin 0.6 AST 17 ALT 18 Alkaline Phosphatase 115 Total Protein 6.6 Albumin 3.5 Globulin 3.1 Albumin/Globulin Ratio 1.1 04/12/24 04/12/24 17:12 11:34 WBC RBC Hgb Hct MCV MCH MCHC RDW Plt Count MPV Neut % (Auto) Lymph % (Auto) [place] % (Auto) Eos % (Auto) Baso % (Auto) Neut # (Auto) Lymph # (Auto) [place] # (Auto) Eos # (Auto) Baso # (Auto) Total Counted Neutrophils % (Manual) Lymphocytes % (Manual) Monocytes % (Manual) Platelet Estimate RBC Morphology Sodium Potassium Chloride Carbon Dioxide Anion Gap BUN Creatinine Estimated Creat Clear Estimated GFR Est GFR ( Amer) Glucose POC Glucose 238 H 220 H Calcium Total Bilirubin AST ALT Alkaline Phosphatase Total Protein Albumin Globulin Albumin/Globulin Ratio Preliminary micro results at discharge 04/10/24 05:45 Blood Culture - Preliminary Blood NO GROWTH AFTER 48 HOURS 04/09/24 19:45 Blood Culture - Preliminary Blood NO GROWTH AFTER 48 HOURS DS: Diagnosis Discharge Diagnosis (1) Supraglottitis: Status: Acute Code(s): J04.30 - Supraglottitis, unspecified, without obstruction Qualifiers: Airway obstruction: without obstruction Qualified Code(s): J04.30 - Supraglottitis, unspecified, without obstruction (2) Enlarged tonsils: Status: Acute Code(s): J35.1 - Hypertrophy of tonsils (3) Nausea & vomiting: Status: Acute Code(s): R11.2 - Nausea with vomiting, unspecified (4) Lymphadenopathy: Status: Acute Code(s): R59.1 - Generalized enlarged lymph nodes (5) Diabetes mellitus, type 2: Status: Acute Code(s): E11.9 - Type 2 diabetes mellitus without complications Qualifiers: Diabetes mellitus complication detail: without coma Diabetes mellitus complication status: with hypoglycemia Diabetes mellitus nursing home insulin use: with nursing home use Qualified Code(s): E11.649 - Type 2 diabetes mellitus with hypoglycemia without coma; 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 (6) Hypertension: Status: Acute Code(s): I10 - Essential (primary) hypertension Qualifiers: Hypertension type: unspecified Qualified Code(s): I10 - Essential (primary) hypertension (7) History of splenectomy: Status: Acute Code(s): Z90.81 - Acquired absence of spleen (8) Tonsillitis: Status: Acute Code(s): J03.90 - Acute tonsillitis, unspecified Meds Home Medications and Allergies Home Medications ?Medication ?Instructions ?Recorded ?Confirmed ?Type bisoprolol fumarate 10 mg tablet 10 mg PO DAILY 10/02/20 04/10/24 History fenofibrate 160 mg tablet 160 mg PO DAILY 01/16/22 04/10/24 History ferrous sulfate 325 mg (65 mg 325 mg PO Q48H 02/08/23 04/10/24 History iron) tablet (FeroSul) gabapentin 300 mg capsule 300 mg PO TID 03/05/23 04/10/24 History rosuvastatin 20 mg tablet 20 mg PO DAILY 06/06/23 04/10/24 History albuterol sulfate 90 mcg/actuation 2 puff inhalation Q4HP PRN 12/19/23 04/10/24 History aerosol inhaler Shortness Of Breath insulin glargine U-300 conc 300 30 unit SQ HS 12/19/23 04/10/24 History unit/mL (3 mL) subcutaneous pen (Toujeo Max U-300 SoloStar) insulin lispro 100 unit/mL 24 unit SQ TID 12/19/23 04/10/24 History subcutaneous pen (Humalog KwikPen (U-100) Insulin) tirzepatide 10 mg/0.5 mL 10 mg SQ WEEKLY 12/19/23 04/10/24 History subcutaneous pen injector (Mounjaro) triamterene 37.5 1 tab PO DAILYP PRN Edema 12/19/23 04/10/24 History mg-hydrochlorothiazide 25 mg tablet desvenlafaxine succinate 100 mg 100 mg PO DAILY #90 tabs 03/24/24 04/10/24 Rx tablet,extended release 24 hr (Pristiq) diazepam 10 mg tablet (Valium) 10 mg PO BIDP PRN anxiety #60 tabs 03/24/24 04/10/24 Rx blood-glucose meter,continuous 04/10/24 04/10/24 History (Dexcom G7 Internet Sourcer) blood-glucose sensor (Dexcom G7 04/10/24 04/10/24 History Sensor device) blood-glucose transmitter (Dexcom 04/10/24 04/10/24 History G6 Transmitter device) dextromethorphan IR 45 1 tab PO BID 04/10/24 04/10/24 History mg-bupropion ER 105 mg biphasic tablet (Auvelity) hydrocodone 7.5 mg-acetaminophen 15 ml PO Q4HP PRN Pain (Scale 04/10/24 04/10/24 History 325 mg/15 mL oral solution Score 4-6) ondansetron 4 mg disintegrating 4 mg PO Q4HP PRN nausea and 04/10/24 04/10/24 History tablet vomiting pen needle, diabetic 32 gauge x 04/10/24 04/10/24 History / (BD Kim 2nd Gen Pen Needle) amoxicillin 875 mg-potassium 1 tab PO BID 4 days #8 tabs 04/13/24 Rx clavulanate 125 mg tablet famotidine 20 mg tablet 20 mg PO BID 14 days #28 tabs 04/13/24 Rx lidocaine HCl 2 % mucosal solution 10 ml PO Q6HP PRN Mouth Irritation 04/13/24 Rx (Lidocaine Viscous) 6 days #0 mL nystatin 100,000 unit/mL oral 500,000 unit (5 mL) PO QID 7 days 04/13/24 Rx suspension #140 mL hydrocodone 7.5 mg-acetaminophen 15 ml PO Q4H PRN pain #250 mL 04/17/24 Rx 325 mg/15 mL oral solution New Prescriptions to Start Prescriptions: zoila-pot clavulanate Riky Joiner famotidine Riky Joiner James Allergies Allergy/AdvReac Type Severity Reaction Status Date / Time No Known Allergies Allergy Verified 04/07/24 08:00 Discharge Plan Disposition Patient Disposition: Home, Self-Care Condition: Fair Discharge Order Discharge Orders: Discharge Order (Routine); Ordered 04/13/24 Ordered By: Riky Marisel Follow up Plan Follow up with: Fantasma Madden III, MD [Staff Physician] - Enter time for follow up (Please call the office with a follow up appt. ) Willis Lange MD [Staff Physician] - Enter time for follow up (The office will call you with a follow up appt. ) Prescriptions/Medication Reconciliation: New lidocaine HCl [Lidocaine Viscous] 2 % Solution 10 ml PO Q6HP PRN (Reason: Mouth Irritation) 6 Days Qty: 0 0RF Rx Instructions: send bottle home with pt nystatin 100,000 unit/mL Suspension 500,000 unit PO QID 7 Days Qty: 140 0RF famotidine 20 mg Tablet 20 mg PO BID 14 Days Qty: 28 0RF amoxicillin-pot clavulanate 875-125 mg tablet 1 tab PO BID 4 Days Qty: 8 0RF Continued desvenlafaxine succinate [Pristiq] 100 mg tablet extended release 24 hr 100 mg PO DAILY Qty: 90 0RF diazepam [Valium] 10 mg tablet 10 mg PO BIDP PRN (Reason: anxiety) Qty: 60 1RF gabapentin 300 mg capsule 300 mg PO TID ferrous sulfate [FeroSul] 325 mg (65 mg iron) tablet 325 mg PO Q48H Patient Comments: TAKE 1 TABLET BY MOUTH EVERY OTHER DAY triamterene-hydrochlorothiazid 37.5-25 mg tablet 1 tab PO DAILYP PRN (Reason: Edema) Patient Comments: TAKE 1 TABLET BY MOUTH ONCE DAILY NEEDED FOR EDEMA albuterol sulfate 90 mcg/actuation HFA aerosol inhaler 2 puff INHALATION Q4HP PRN (Reason: Shortness Of Breath) Patient Comments: INHALE 2 PUFFS BY MOUTH EVERY 4 TO 6 HOURS NEEDED Mounjaro 10 mg/0.5 mL pen injector 10 mg SQ WEEKLY Patient Comments: INJECT 1 SYRINGE SUBCUTANEOUSLY ONCE A WEEK insulin lispro [Humalog KwikPen Insulin] 100 unit/mL insulin pen 24 unit SQ TID Patient Comments: Per patient, only takes 20 unit dose with meals - skips if skipped meal insulin glargine U-300 conc [Toujeo Max U-300 SoloStar] 300 unit/mL (3 mL) insulin pen 30 unit SQ HS Patient Comments: INJECT 62 UNITS SUBCUTANEOUSLY ONCE DAILY DIRECTED (DME) [email or web address] G7 Sensor Device MISCELLANEOUS Patient Comments: CHANGE SENSOR EVERY 10 DAYS (DME) Dexcom G7 Internet Sourcer Misc MISCELLANEOUS Patient Comments: USE DIRECTED (DME) Dexcom G6 Transmitter Device MISCELLANEOUS Patient Comments: REPLACE EVERY 3 MONTHS (DME) pen needle, diabetic [BD Kim 2nd Gen Pen Needle] 32 gauge x 5/32 needle MISCELLANEOUS Patient Comments: USE 1 PEN NEEDLE 4 TIMES DAILY WITH INSULIN Auvelity 45-105 mg tablet, IR and ER, biphasic 1 tab PO BID Patient Comments: TAKE 1 TABLET BY MOUTH TWICE DAILY FOR DEPRESSION ondansetron 4 mg tablet,disintegrating 4 mg PO Q4HP PRN (Reason: nausea and vomiting) hydrocodone-acetaminophen 7.5-325 mg/15 mL solution 15 ml PO Q4HP PRN (Reason: Pain (Scale Score 4-6)) fenofibrate 160 mg tablet 160 mg PO DAILY Patient Comments: TAKE 1 TABLET BY MOUTH ONCE DAILY rosuvastatin 20 mg Tablet 20 mg PO DAILY Held bisoprolol fumarate 10 MG tablet 10 mg PO DAILY Hold Instructions: pending follow-up with Cardiology No Action hydrocodone-acetaminophen 7.5-325 mg/15 mL solution 15 ml PO Q4H PRN (Reason: pain) Qty: 250 0RF Problem Reconciliation Problems Reviewed?: Yes Patient Discharge Instructions ACTIVITY: Continue current activity DIET: continue same diet and advance to your usual diet Patient Instructions: DI for Epiglottitis-Adult, DI for Surgical Site Infection, Peripherally Inserted Central Catheter Infections Print Language: [place] Providers Primary Care Provider: Geronimo Hoyt Admit Provider: Riky Joiner Attending Provider: Riky Joiner
[2024-04-13 11:25] LABS: POC Glucose,Bedside 225 (70-110)
[2024-04-13] MEDS: FLUCONAZOLE 200MG TABLET 200 MG PO (12:40)
[2024-04-13] MEDS: LIDOCAINE VISCOUS 100ML BOTTLE 10 ML PO (12:40)
--- NOTE | 2024-04-14 11:03 | SW/DCPLANNER ---
Spoke with patient on the phone. 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 Patient stated that she is doing great and that she has no concerns or questions at this time. Corwin Chacon
== END 2024-04-13 12:55 | disposition home or self-care (01) | DRG 153 ==
LOC: ER 04-10 00:14 → 2ND 04-10 02:01
PROVIDERS: Emergency Medicine; Internal Medicine; Nurse Practitioner Family; Student in an Organized Health Care Education/Training Program; Admitting Provider Internal Medicine Adolescent Medicine; Emergency Provider Emergency Medicine; PCP Internal Medicine; Visit Provider Internal Medicine Adolescent Medicine
DX: J04.30 Supraglottitis, unspecified, without obstruction (principal); J03.90 Acute tonsillitis, unspecified; I10 Essential (primary) hypertension; E11.9 Type 2 diabetes mellitus without complications; E86.0 Dehydration; B37.9 Candidiasis, unspecified; Z79.4 Long term (current) use of insulin
CPT/HCPCS: 36410; 36415; 70492; 71045; 80048; 80053; 80061; 80076; 81001; 82962; 83605; 83735; 84145; 84484; 84703; 85007; 85025; 85610; 85651; 86140; 87040; 87633; 93005; 93270; 93272; 93306; 99251; 99285; C1751; J0295; J1100; J1171; J1200; J1650; J1885; J2270; J2543; J2919; J3372; J7030; J7120; Q9967; S0028

== ENCOUNTER 2024-06-16 11:09 | Outpatient (CLI) | payer BC, SELFPAY ==
[2024-06-16 11:50] LABS: Basophils # 0.1 K/mm3 (0-0.2); Basophils % 0.9 % (0.1-2.0); Hematocrit 40.7 % (37.0-47.0); Hemoglobin 13.1 g/dL (12.2-16.2); Lymphocytes % 23.1 % (10-50); Mean Corpuscular HGB Conc 32.2 g/dL (31.8-35.4); Mean Corpuscular Hemoglobin 30.8 pg (27.0-31.2); Mean Corpuscular Volume 95.8 fl (81-99); Mean Platelet Volume 9.2 fl (7.4-10.4); Monocytes # 0.7 K/mm3 (0.1-1.0); Neutrophils # 8.7 K/mm3 (1.8-7.8); Neutrophils % 67.2 % (37.0-80.0); Platelet Count 655 K/mm3 (142-424); Red Blood Count 4.25 M/mm3 (4.20-5.40); Red Cell Distribution Width 15.6 % (11.5-17.5); White Blood Count 12.9 K/mm3 (4.8-10.8)
[2024-06-16 12:24] LABS: Albumin Level 4.4 g/dl (3.5-5.0); Chloride 103 mmol/L (98-107)
[2024-06-16 12:25] LABS: Potassium 4.9 mmoL/L (3.5-5.1); Sodium 137 mmol/L (136-145)
[2024-06-16 12:27] LABS: Alanine Aminotransferase 15 U/L (12-78); Anion Gap 10.9 mEq/L (5-15); Aspartate Amino Transferase 18 U/L (14-36); Bilirubin,Unconjugated 0.1 mg/dL (0.0-1.1); Blood Urea Nitrogen 27 mg/dl (7-17); Calcium 9.9 mg/dl (8.4-10.2); Carbon Dioxide 28 mmol/L (22.0-30.0); Cholesterol 176 mg/dl (140-200); Estimated Glomerular Filt Rate 91 ml/min (>60); GFR (African American) 110 ML/MIN (>60); Glucose 268 mg/dl (74-100); Triglycerides 72 mg/dl (30-150); VLDL Cholesterol 14 mg/dL (0-40)
[2024-06-16 12:28] LABS: Alkaline Phosphatase 162 U/L (38-126); Bilirubin,Direct 0.1 mg/dl (0.0-0.4); Bilirubin,Indirect 0.1 mg/dL (0.0-0.9); Bilirubin,Total 0.2 mg/dl (0.2-1.3); Chol/HDL Ratio 1.9 (1-3.5); HDL Cholesterol 95 mg/dl (40-60); Magnesium 1.6 mg/dl (1.6-2.3)
[2024-06-16 12:41] LABS: Direct LDL Cholesterol 66.93 mg/dL (100-129)
[2024-06-16 12:44] LABS: Free T4 (Free Thyroxine) 0.88 ng/dl (0.78-2.19)
[2024-06-16 12:59] LABS: Thyroid Stimulating Hormone 0.66 uIU/mL (0.465-4.68)
== END 2024-06-16 23:59 | disposition home or self-care (01) ==
LOC: LAB 11:10
PROVIDERS: PCP Internal Medicine; Visit Provider Nurse Practitioner
DX: R00.1 Bradycardia, unspecified (principal); I10 Essential (primary) hypertension; E11.649 Type 2 diabetes mellitus with hypoglycemia without coma; Z79.4 Long term (current) use of insulin
CPT/HCPCS: 36415; 80048; 80061; 80076; 83735; 84439; 84443; 85025

== ENCOUNTER 2025-01-26 12:48 | Outpatient (CLI) | payer BC, SELFPAY ==
--- OUTSIDE RECORDS SUMMARY | 2024-08-04 08:17 | XMS_ITS | Continuity of Care Document ---
Author Organization [facility] Address [address] [place] [address] Phone Care Team Providers Care Maintenance Foreman Name Role Phone Williams MSN, FUEL TESTING TECHNICIAN, Diamond Unavailable Unavai lable Allergies, Adverse Reactions, Alerts Substance Reaction Status Criticality No Known Allergies Active No Inform ation Medications Medication Instructions Dosage Effective Dates (start - stop) Status Comments Rosuvastatin Calcium 20 MG Oral Tablet Take 1 tablet by mouth once daily - Active SV Iron 325 MG Oral Tablet TAKE 1 TABLET BY MOUTH EVERY OTHER DAY - Active Triamterene-HCTZ 37.5-25 MG Oral Tablet TAKE 1 TABLET BY MOUTH ONCE DAILY NEEDED FOR EDEMA - Active doxycycline monohydrate 100 mg capsule take 1 capsule by oral route 2 times every day 100 MG - Active Diflucan 200 mg tablet take 1 tablet by oral route every day - Active albuterol sulfate HFA 90 mcg/actuation aerosol inhaler inhale 2 puff by inhalation route every 4 - 6 hours as needed 180 MCG - Active Diflucan 200 mg tablet take 1 tablet by oral route every day - Active gabapentin 300 mg capsule Take one tablet two times daily PRN - Active Vitamin D3 5000 UNIT Oral Tablet Take 1 tablet by mouth once daily - Active bisoprolol fumarate 10 mg tablet Take 1 tablet by mouth once daily - Active Maxalt 10 mg tablet take 1 tablet by ora l route once, may repeat at 2 hour intervals; do not exceed 30 mg in 24 hours 10 MG - Active Toujeo Max U-300 SoloStar 300 unit/mL (3 mL) subcutaneous insulin pen inject 18 units by subcutaneous route every morning - Active Humalog U-100 Insulin 100 unit/mL subcutaneous solution Inject 10 units subcutaneously prior to breakfast and supper, and 12 units prior to lunch. - Active temazepam 15 mg capsule take 1 capsule by oral route every day at bedtime as needed 15 MG - Active ondansetron [address] 1 tablet by translingual route on top of the tongue where it will dissolve, then swallow every 8 hours as needed for nausea and vomiting. as needed - Active desvenlafaxine ER 100 mg tablet,extended release 24 hr take 1 tablet by oral route every day 100 MG - Active Mounjaro 7.5 mg/0.5 mL subcutaneous pen injector inject (7.5MG) by subcutaneous route every week 7.5 MG - Active diazepam 10 mg tablet take 1 tablet by o ral route every day 10 MG - Active Gvoke HypoPen 2-Pack 1 mg/0.2 mL subcutaneous auto-injector inject 0.2 milliliter by subcutaneous route once in the abdomen, thigh, or upper arm may repeat in 15 minutes if inadequate response 1 MG - Active Auvelity 45 mg-105 mg tablet, extended release take 1 tablet by oral route 2 times every day 1 tablet - Active fenofibrate 160 mg tablet Take 1 tablet by oral route daily - Active melatonin 10 mg tablet Take 1 tablet at night - Active ibuprofen 800 mg tablet take 1 tablet by oral route 3 times every day with food as needed 800 MG - Active Advance Directives Directive Yes / No Effective Date File Name No Information Encounters Encounter Description Practice Location Reason(s) For Visit Diagnoses Date Provider [facility], [address] [place] [address], [id number], [place] tel:[phone] No Information [address], [place], [id number] , [place]. tel:[phone] [place] [address], [address] [place] [address], [facility], tel:[phone] [facility] No Information 5 K[address]. [address], [place], [id number] , . tel: [phone] [facility], [address] [place] [address], [facility], tel:[phone] [facility] [place] No Information 4 Kramer [address]. [address], [place], [id number] , . tel: [phone] [facility], [address] [place] [address], [facility], tel:[phone] [facility] [place] cough (chief complaint)l ethargy (chief complaint) Acute pharyngitis, unspecifiedDysuriaCoughS treptococcal sore throatWheezingTachycardi aEncounter for screening for COVID-19 4 Kramer Diamond. [address], [place], [id number] , . tel: [phone] [facility], [address] [place] [address], [facility], tel:[phone] [facility] dysuria (chief complaint) Body mass index [BMI] 32.0-32.9, adultDysuriaType 2 diabetes mellitus with diabetic neuropathy, unspecifiedVitamin B12 deficiencyHyperglycemiaF unctional urinary incontinenceOral thrush 4 K[address]. [address], [place], [id number] , . tel: [phone] [facility], [address] [place] [address], [facility], tel:[phone] [facility] [place] Right knee and foot injury. (chief complaint)B 12 injection. (chief complaint) Vitamin B12 deficiencyPain in right kneePain in right footEncntr screen mammogram for malignant neoplasm of breastType 2 diabetes mellitus with diabetic neuropathy, unspecifiedEncounter for therapeutic drug level monitoring 4 [address]. [address], [place], [address] , . tel: [phone] [facility], [address] [place] [address], [facility], tel:[phone] [facility] Follow up on labs (chief complaint) Body mass index [BMI] 34.0-34.9, adultDepressionHyperlipi demiaHypoglycemiaType 2 diabetes mellitus w/ diabetic neuropathyVitamin B12 deficiencyEncounter for therapeutic drug level monitoring 4 Kramer [address]. [address], [place], [address] , [place]. tel: [phone] [facility], [address] [place] [address], [facility], tel:[phone] [facility] [place] FASTING LABS (chief complaint) Type 2 diabetes mellitus w/ diabetic neuropathy 4 Kramer [address]. [address], [place], [address] , [place]. tel: [phone] [facility], [address] [place] [address], [facility], tel:[phone] [facility] No Information 4 [address]. [address], [place], [address] , [place]. tel: [phone] [facility], [address] [place] [address], [facility], [place] tel:[phone] [facility] [place] Leg and Knee Pain (chief complaint) Vitamin B12 deficiencyType 2 diabetes mellitus w/ diabetic neuropathyAnxiety disorder, unspecifiedDepressionPai n in rt kneePain in lt kneeBody mass index [BMI] 34.0-34.9, adultEncounter for therapeutic drug level monitoring 4 Kramer [address]. [address], [place], [address] , . tel: [phone] [facility], [address] [place] [address], [facility], tel:[phone] [facility] f/u (chief complaint) Body mass index [BMI] 33.0-33.9, adultCOVID-19Hypoglycemi a 4 Kramer Diamond. [address], [place], [address] , [place]. tel: [phone] [facility], [address] [place] [address], [facility], tel:[phone] f/u on labs (chief complaint) Anxiety disorder, unspecifiedEdemaVitamin B12 deficiencyDepressionType 2 diabetes mellitus with hypoglycemia without comaHyperlipidemiaBody mass index [BMI] 34.0-34.9, adult 4 Kramer Diamond. [address] [place] [address], [id number] , [place]. tel: [phone] [facility], [address] [place] [address], [facility], [place] tel:[phone] FASTING LABS (chief complaint)U RINE COLLECTION (chief complaint) Type 2 diabetes mellitus with hyperglycemia 4 K[address]. [address], [place], [address] , [place]. tel: [phone] [facility], [address] [place] [address], [facility], [place] tel:[phone] [facility] Edema 3 Kramer [address]. [address], [place], [address] , [place]. tel:[phone] [facility], [address] [place] [address], [facility], tel:[phone] [facility] f/u (chief complaint) Body mass index [BMI] 33.0-33.9, adultAcute pharyngitis, unspecifiedOtalgia, right earHeadacheEncounter for screening for COVID-19 3 K[address]. [address], [place], [address] , [place]. tel:[phone] [facility], [address] [place] [address], [facility], [place] tel:[phone] [facility] cough and fever (chief complaint) COVID-19Sinus tachycardiaShortness of breathEncounter for screening for COVID-19 3 Kramer [address]. [address], [place], [address] , [place]. tel:[phone] [facility], [address] [place] [address], [facility], [place] tel:[phone] [facility] Covid symptoms (chief complaint) Body mass index [BMI] 33.0-33.9, adultCOVID-19Sinus tachycardiaType 2 diabetes mellitus with hyperglycemiaImmunocompr omised 3 Kramer Diamond. [address], [place], [address] , [place]. tel:[phone] [facility], [address] [place] [address], [facility], [place] tel:[phone] [facility] No Information 3 K[address]. [address], [place], [address] , [place]. tel:[phone] [facility], [address] [place] [address], [facility], tel:[phone] [facility] FLU VACCINE (chief complaint) Dysuria 0- 3 Kramer Diamond. [address], [place], [address] , . tel: [phone] [facility], [address] [place] [address], [facility], tel:[phone] [facility] dysuria (chief complaint) DysuriaType 2 diabetes mellitus with hyperglycemia 9 3 [address]. [address], [place], [address] , . tel: [phone] [facility], [address] [place] [address], [facility], tel:[phone] [facility] F/u on labs (chief complaint) Body mass index [BMI] 33.0-33.9, adultHyperlipidemiaType 2 diabetes mellitus without complicationsLeukocytosi sAnxiety disorder, unspecifiedVitamin B12 deficiency Sep-2 3 Kramer Diamond. [address], [place], [address] , [place]. tel: [phone] [facility], [address] [place] [address], [facility], tel:[phone] [facility] Fasting Labs (chief complaint) Type 2 diabetes mellitus without complications Sep- 3 Kramer [address]. [address], [place], [address] , [place]. tel: [phone] [facility], [address] [place] [address], [facility], tel:[phone] [facility] women's health exam (chief complaint) Encntr for gynecological assistant exam (general) (routine) w/o abn findingsEncntr screen for infections w sexl mode of transmiss 3 Kramer Diamond. [address], [place], [address] , [place]. tel:[phone] [facility], [address] [place] [address], [facility], [place] tel:[phone] [facility] follow up labs (chief complaint) Body mass index [BMI] 33.0-33.9, adultType 2 diabetes mellitus without complicationsSinus tachycardiaHyperlipidemi aLeukocytosisEncntr screen mammogram for malignant neoplasm of breast 3 Kramer [address]. [address], [place], [address] , [place]. tel:[phone] [facility], [address] [place] [address], [facility], [place] tel:[phone] [facility] fasting labs colection (chief complaint) Type 2 diabetes mellitus without complications 3 K[address]. [address], [place], [address] , [place]. tel:[phone] [facility], [address] [place] [address], [address], [place] tel:[phone] [facility] dysuria (chief complaint) Body mass index [BMI] 34.0-34.9, adult 3 K[address]. [address], [place], [address] , [place]. tel:[phone] [facility], [address] [place] [address], [address], [place] tel:[phone] [facility] eR f/u (chief complaint) Acute pharyngitis, unspecifiedOral thrush 3 Kraemr Diamond. [address], [place], [address] , [place]. tel:[phone] [facility], [address] [place] [address], [facility], [phone] [facility] Sore throat (chief complaint) No Information 3 K[address]. [address] [place], [place], [address] [place] [address] , . tel: [phone] [facility], [address] [place] [address], [facility], tel:[phone] [facility] sore throat (chief complaint) Body mass index [BMI] 34.0-34.9, adult 3 Kramer Diamond. [address] [place] [address], [address] [place] [address] , . tel: [phone] [facility], [address] [place] [address], [facility], [phone] [facility] NEW PATIENT (chief complaint) Encounter for immunizationAnxiety disorder, unspecified 2 Kramer Diamond. [address] [place] [address], [address] [place] [address] , . tel: [phone] Family History Family Member Type Diagnosis Age At Onset Mother Problem Alive and well Half sister (M) Problem Alive and well Maternal grandfather Problem Heart Issues Daughter Problem Alive and well Paternal grandmother Problem Diabetes mellitus Maternal grandmother Problem malignant neoplasm o f lung Father Problem Alive and well Half sister (M) Problem Alive and well Paternal grandmother Problem CVA Paternal grandfather Problem Passed at an early a ge due to an accident Half sister (M) Problem Alive and well Half sister (M) Problem Alive and well Father Problem Diabetes mellitus Immunizations Vaccine Date Status Comments COVID-19 (MOD) 12+yrs administered Source : Other Registry PCV20 administered Source: Other R egistry Influenza Flulaval administered Source: N ew Immunization Record SARS-COV-2 (COVID-19) vaccin e, mRNA, spike protein, LNP, bivalent booster, preservative free, 50 mcg/0.5 mL or 25 mcg/0.25 mL dose (Moderna) administered Source: New I mmunization Record Influenza Quad W/Pres administered Source : Other Registry COVID-19 mRNA (MOD) administered Source: Other Registry COVID-19 mRNA (MOD) administered Source: Other Registry Flu Quad Recomb IM P-Free administered So urce: Other Registry Influenza Quad Inj administered Source: O ther Registry PCV13 administered Source: Other R egistry Tdap, Adsorbed administered Source: Other Registry MCV4 (Menactra) administered Source: Othe r Registry Influenza Quad Inj administered Source: O ther Registry Influenza-LAIV Nasal administered Source: Other Registry Payers Payer name Insurance type Covered democrat ID Vasquez mancilla(s) [place] [employer] [facility] [id number] [place] [employer] [facility] [id number] Social History Type Description Quantity Date Captured Comments Sex Female Smoking Status No Information Sexual Orientation Straight or heterosexual Mar Gender Identity Female Chief Complaint And Reason For Visit No Information Plan Of Treatment Date Type Action Status Goal Drug Abuse Scree jhony Test (DAST-10). Due on due Goal Vitamin D. Due on 5 due Goal Depression scree jhony. Due on due Goal Foot exam. Due on 4 due Goal Hep B (1st). Due on 024 due Goal HIV screen due Goal Obtain Height, W eight, and BMI. Due on due Goal Pap/HPV testing. Due on due Goal HPV testing. Due on 028 due Goal Generalized Anxi ety Disorder - 7 (JHONY-7). Due on due Goal Diabetes screening. Due on due Goal CMP. Due on due Goal Lipid panel. Due on due Goal HPV. Due on due Goal Mammogram. Due on due Goal Influenza vaccine. Due on Oc due Goal ASCVD 10 year risk. Due on A due Goal Dilated eye exam. Due on Jun due Goal Taking Statin Me dication. Due on due Goal CBC. Due on due Goal TSH. Due on due Goal Vitamin B12. Due on due Goal Tobacco Use Scre ening. Due on due Goal Pneumococcal vaccine due Goal Follow up Plan f or abnormal BMI (Less than 18.5, greater than 25). Due on due Goal Hepatitis C Screening due Goal Urine microalbumin. Due on A due Goal Unhealthy drug use screening due Goal Tobacco Use Cess ation Counseling. Due on due Goal Dental exam. Due on due Goal PAP. Due on due Goal GFR. Due on due Goal Hepatitis C Screening due Goal ASCVD 10 year risk. Due on A due Goal Lipid panel. Due on due Goal Hep B (1st). Due on 024 due Goal TSH. Due on due Goal Mammogram. Due on due Goal Vitamin B12. Due on 025 due Goal Unhealthy drug use screening due Goal Influenza vaccine. Due on due Goal HPV testing. Due on due Goal PAP. Due on due Goal Depression scree jhony. Due on due Goal Taking Statin Me dication. Due on due Goal Tobacco Use Scre ening. Due on due Goal Pap/HPV testing. Due on due Goal Pneumococcal vaccine due Goal CBC. Due on due Goal Follow up Plan f or abnormal BMI (Less than 18.5, greater than 25). Due on due Goal Generalized Anxi ety Disorder - 7 (JHONY-7). Due on due Goal Foot exam. Due on due Goal HPV. Due on due Goal CMP. Due on due Goal HIV screen due Goal Dental exam. Due on due Goal Diabetes screening. Due on due Goal GFR. Due on due Goal Dilated eye exam. Due on Jun due Goal Urine microalbumin. Due on due Goal Vitamin D. Due on due Goal Drug Abuse Scree jhony Test (DAST-10). Due on due Goal Tobacco Use Cess ation Counseling. Due on due Goal Obtain Height, W eight, and BMI. Due on due Goal Lifestyle education regardin g diet completed Goal ASCVD 10 year risk. Due on due Goal Lipid panel. Due on due Goal Drug Abuse Scree jhony Test (DAST-10). Due on due Goal Taking Statin Me dication. Due on due Goal GFR. Due on due Goal CBC. Due on due Goal Influenza vaccine. Due on due Goal Unhealthy drug use screening due Goal Follow up Plan f or abnormal BMI (Less than 18.5, greater than 25). Due on due Goal Generalized Anxi ety Disorder - 7 (JHONY-7). Due on due Goal Dental exam. Due on 020 due Goal Pap/HPV testing. Due on due Goal Mammogram. Due on due Goal Dilated eye exam. Due on Jun due Goal Depression scree jhony. Due on due Goal Hep B (1st). Due on 024 due Goal HIV screen due Goal Hepatitis C Screening due Goal HPV testing. Due on 028 due Goal Vitamin B12. Due on due Goal Obtain Height, W eight, and BMI. Due on due Goal Urine microalbumin. Due on due Goal CMP. Due on due Goal Foot exam. Due on due Goal Tobacco Use Scre ening. Due on due Goal PAP. Due on due Goal Diabetes screening. Due on due Goal Tobacco Use Cess ation Counseling. Due on due Goal TSH. Due on due Goal Pneumococcal vaccine due Goal HPV. Due on due Goal Vitamin D. Due on due Goal Pap/HPV testing. Due on due Goal Hepatitis C Screening due Goal Hep B (1st). Due on due Goal Mammogram. Due on due Goal ASCVD 10 year risk. Due on due Goal Generalized Anxi ety Disorder - 7 (JHONY-7). Due on due Goal Obtain Height, W eight, and BMI. Due on due Goal Vitamin B12. Due on due Goal HIV screen due Goal Urine microalbumin. Due on due Goal Unhealthy drug use screening due Goal Diabetes screening. Due on due Goal Tobacco Use Cess ation Counseling. Due on due Goal HPV. Due on due Goal Drug Abuse Scree jhony Test (DAST-10). Due on due Goal Taking Statin Me dication. Due on due Goal HPV testing. Due on due Goal Foot exam. Due on 4 due Goal Dilated eye exam. Due on Jun due Goal Depression scree jhony. Due on due Goal Influenza vaccine. Due on due Goal Follow up Plan f or abnormal BMI (Less than 18.5, greater than 25). Due on due Goal Pneumococcal vaccine due Goal CMP. Due on due Goal Lipid panel. Due on due Goal Vitamin D. Due on 5 due Goal TSH. Due on due Goal GFR. Due on due Goal CBC. Due on due Goal PAP. Due on due Goal Dental exam. Due on 020 due Goal Tobacco Use Scre ening. Due on due Goal Lifestyle education regardin g diet completed Goal Lifestyle education regardin g diet completed Goal Mammogram. Due on 4 due Goal Hep B (1st). Due on 024 due Goal Vitamin D. Due on 5 due Goal HPV. Due on due Goal Hemoglobin A1C. Due on due Goal Generalized Anxi ety Disorder - 7 (JHONY-7). Due on due Goal Follow up Plan f or abnormal BMI (Less than 18.5, greater than 25). Due on due Goal Tobacco Use Cess ation Counseling. Due on due Goal Diabetes screening. Due on due Goal Obtain Height, W eight, and BMI. Due on due Goal Pap/HPV testing. Due on due Goal Unhealthy drug use screening due Goal GFR. Due on due Goal Taking Statin Me dication. Due on due Goal CMP. Due on due Goal CBC. Due on due Goal TSH. Due on due Goal Pneumococcal vaccine due Goal Dental exam. Due on due Goal Lipid panel. Due on 028 due Goal Dilated eye exam. Due on Jun due Goal Foot exam. Due on due Goal Tobacco Use Scre ening. Due on due Goal Drug Abuse Scree jhony Test (DAST-10). Due on due Goal Vitamin B12. Due on 025 due Goal Hepatitis C Screening due Goal Urine microalbumin. Due on due Goal Depression scree jhony. Due on due Goal PAP. Due on due Goal Influenza vaccine. Due on Oc due Goal HIV screen due Goal ASCVD 10 year risk. Due on due Goal HPV testing. Due on due Goal Taking Statin Me dication. Due on due Goal Drug Abuse Scree jhony Test (DAST-10). Due on due Goal Dilated eye exam. Due on Jun due Goal Influenza vaccine. Due on Oc due Goal TSH. Due on due Goal HPV testing. Due on due Goal Pneumococcal vaccine due Goal Diabetes screening. Due on due Goal Obtain Height, W eight, and BMI. Due on due Goal Hemoglobin A1C. Due on due Goal Lipid panel. Due on due Goal Tobacco Use Scre ening. Due on due Goal Hepatitis C Screening due Goal Foot exam. Due on due Goal PAP. Due on due Goal ASCVD 10 year risk. Due on due Goal Follow up Plan f or abnormal BMI (Less than 18.5, greater than 25). Due on due Goal Tobacco Use Cess ation Counseling. Due on due Goal Generalized Anxi ety Disorder - 7 (JHONY-7). Due on due Goal Dental exam. Due on due Goal Vitamin B12. Due on due Goal Urine microalbumin. Due on M due Goal Vitamin D. Due on due Goal HPV. Due on due Goal Unhealthy drug use screening due Goal CMP. Due on due Goal Pap/HPV testing. Due on due Goal Hep B (1st). Due on due Goal CBC. Due on due Goal Mammogram. Due on due Goal HIV screen due Goal Depression scree jhony. Due on due Goal GFR. Due on due Goal CBC. Due on due Goal GFR. Due on due Goal Pneumococcal vaccine due Goal Vitamin D. Due on due Goal Urine microalbumin. Due on M due Goal Unhealthy drug use screening due Goal CMP. Due on due Goal Generalized Anxi ety Disorder - 7 (JHONY-7). Due on due Goal Tobacco Use Scre ening. Due on due Goal Dental exam. Due on due Goal Vitamin B12. Due on due Goal Lipid panel. Due on 028 due Goal Influenza vaccine. Due on due Goal Follow up Plan f or abnormal BMI (Less than 18.5, greater than 25). Due on due Goal Diabetes screening. Due on due Goal Taking Statin Me dication. Due on due Goal TSH. Due on due Goal Dilated eye exam. Due on Jun due Goal Drug Abuse Scree jhony Test (DAST-10). Due on due Goal Obtain Height, W eight, and BMI. Due on due Goal Hep B (). Due on due Goal PAP. Due on due Goal ASCVD 10 year risk. Due on due Goal Hepatitis C Screening due Goal HPV. Due on due Goal Depression scree jhony. Due on due Goal Hemoglobin A1C. Due on due Goal Pap/HPV testing. Due on due Goal HPV testing. Due on due Goal HIV screen due Goal Foot exam. Due on due Goal Lifestyle education regardin g diet completed Goal HPV testing. Due on due Goal Influenza vaccine. Due on due Goal Pneumococcal vaccine due Goal Hep B (). Due on due Goal Obtain Height, W eight, and BMI. Due on due Goal Vitamin B12. Due on due Goal Diabetes screening. Due on due Goal Pap/HPV testing. Due on due Goal Dental exam. Due on 020 due Goal GFR. Due on due Goal Tobacco Use Scre ening. Due on due Goal Lipid panel. Due on 028 due Goal Unhealthy drug use screening due Goal Vitamin D. Due on due Goal TSH. Due on due Goal Urine microalbumin. Due on due Goal CBC. Due on due Goal HPV. Due on due Goal PAP. Due on due Goal Hemoglobin A1C. Due on due Goal Foot exam. Due on due Goal Generalized Anxi ety Disorder - 7 (JHONY-7). Due on due Goal Depression scree jhony. Due on due Goal Dilated eye exam. Due on Jun due Goal HIV screen due Goal Drug Abuse Scree jhony Test (DAST-10). Due on due Goal CMP. Due on due Goal Taking Statin Me dication. Due on due Goal Follow up Plan f or abnormal BMI (Less than 18.5, greater than 25). Due on due Goal Tobacco Use Cess ation Counseling. Due on due Goal Hepatitis C Screening due Goal ASCVD 10 year risk. Due on F due Goal Lifestyle education regardin g diet completed Goal Lipid panel. Due on due Goal Vitamin D. Due on due Goal Unhealthy drug use screening due Goal Drug Abuse Scree jhony Test (DAST-10). Due on due Goal CBC. Due on due Goal ASCVD 10 year risk. Due on due Goal Hep B (). Due on due Goal Pneumococcal vaccine due Goal Depression scree jhony. Due on due Goal Foot exam. Due on due Goal GFR. Due on due Goal Obtain Height, W eight, and BMI. Due on due Goal Taking Statin Me dication. Due on due Goal Influenza vaccine. Due on Oc due Goal Follow up Plan f or abnormal BMI (Less than 18.5, greater than 25). Due on due Goal HIV screen due Goal Dental exam. Due on due Goal Pap/HPV testing. Due on due Goal Urine microalbumin. Due on due Goal HPV testing. Due on due Goal Hemoglobin A1C. Due on due Goal Generalized Anxi ety Disorder - 7 (JHONY-7). Due on due Goal Vitamin B12. Due on 025 due Goal Diabetes screening. Due on due Goal TSH. Due on due Goal Hepatitis C Screening due Goal Dilated eye exam. Due on Jun due Goal PAP. Due on due Goal HPV. Due on due Goal CMP. Due on due Goal Tobacco Use Scre ening. Due on due Goal Lifestyle education regardin g diet completed Goal Drug Abuse Scree jhony Test (DAST-10). Due on due Goal Pap/HPV testing. Due on due Goal PAP. Due on due Goal Dilated eye exam. Due on Jun due Goal CBC. Due on due Goal Hepatitis C Screening due Goal ASCVD 10 year risk. Due on due Goal Unhealthy drug use screening due Goal Vitamin B12. Due on due Goal Follow up Plan f or abnormal BMI (Less than 18.5, greater than 25). Due on due Goal Dental exam. Due on due Goal Generalized Anxi ety Disorder - 7 (JHONY-7). Due on due Goal Hemoglobin A1C. Due on due Goal Vitamin D. Due on due Goal Pneumococcal vaccine due Goal Depression scree jhony. Due on due Goal TSH. Due on due Goal Obtain Height, W eight, and BMI. Due on due Goal HPV testing. Due on due Goal Foot exam. Due on due Goal Tobacco Use Cess ation Counseling. Due on due Goal Influenza vaccine. Due on due Goal GFR. Due on due Goal HIV screen due Goal Hep B (). Due on due Goal CMP. Due on due Goal Lipid panel. Due on due Goal HPV. Due on due Goal Taking Statin Me dication. Due on due Goal Tobacco Use Scre ening. Due on due Goal Urine microalbumin. Due on due Goal Diabetes screening. Due on due Goal Dilated eye exam. Due on Jun due Goal Pap/HPV testing. Due on due Goal Drug Abuse Scree jhony Test (DAST-10). Due on due Goal PAP. Due on due Goal Urine microalbumin. Due on due Goal Diabetes screening. Due on due Goal Taking Statin Me dication. Due on due Goal Foot exam. Due on due Goal HPV testing. Due on due Goal HPV. Due on due Goal Hemoglobin A1C. Due on due Goal Vitamin D. Due on due Goal Influenza vaccine. Due on due Goal Dental exam. Due on due Goal Obtain Height, W eight, and BMI. Due on due Goal GFR. Due on due Goal Vitamin B12. Due on due Goal Generalized Anxi ety Disorder - 7 (JHONY-7). Due on due Goal Pneumococcal vaccine due Goal Lipid panel. Due on due Goal HIV screen due Goal Depression scree jhony. Due on due Goal Follow up Plan f or abnormal BMI (Less than 18.5, greater than 25). Due on due Goal TSH. Due on due Goal Hep B (). Due on due Goal CBC. Due on due Goal Tobacco Use Scre ening. Due on due Goal Tobacco Use Cess ation Counseling. Due on due Goal Hepatitis C Screening due Goal CMP. Due on due Goal ASCVD 10 year risk. Due on due Goal Unhealthy drug use screening due Goal GFR. Due on due Goal Foot exam. Due on due Goal Depression scree jhony. Due on due Goal CMP. Due on due Goal Diabetes screening. Due on due Goal Influenza vaccine. Due on due Goal Taking Statin Me dication. Due on due Goal Hepatitis C Screening due Goal HPV. Due on due Goal Vitamin D. Due on due Goal TSH. Due on due Goal Tobacco Use Scre ening. Due on due Goal Lipid panel. Due on due Goal Generalized Anxi ety Disorder - 7 (JHONY-7). Due on due Goal Pap/HPV testing. Due on due Goal Obtain Height, W eight, and BMI. Due on due Goal Hep B (1st). Due on due Goal Pneumococcal vaccine due Goal Hemoglobin A1C. Due on due Goal Dental exam. Due on due Goal HPV testing. Due on due Goal Vitamin B12. Due on 024 due Goal Follow up Plan f or abnormal BMI (Less than 18.5, greater than 25). Due on due Goal ASCVD 10 year risk. Due on due Goal PAP. Due on due Goal CBC. Due on due Goal Dilated eye exam. Due on Jun due Goal Urine microalbumin. Due on N due Goal HIV screen due Goal Unhealthy drug use screening due Goal Drug Abuse Scree jhony Test (DAST-10). Due on due Goal Lifestyle education regardin g diet completed Goal Influenza vaccine. Due on due Goal Hepatitis C Screening due Goal Drug Abuse Scree jhony Test (DAST-10). Due on due Goal Vitamin B12. Due on 024 due Goal ASCVD 10 year risk. Due on due Goal GFR. Due on due Goal HIV screen due Goal Dilated eye exam. Due on Jun due Goal Vitamin D. Due on due Goal Diabetes screening. Due on due Goal Hemoglobin A1C. Due on due Goal Follow up Plan f or abnormal BMI (Less than 18.5, greater than 25). Due on due Goal TSH. Due on due Goal HPV testing. Due on 028 due Goal Dental exam. Due on 020 due Goal Generalized Anxi ety Disorder - 7 (JHONY-7). Due on due Goal Urine microalbumin. Due on due Goal Unhealthy drug use screening due Goal Pneumococcal vaccine due Goal Hep B (1st). Due on 023 due Goal Taking Statin Me dication. Due on due Goal CMP. Due on due Goal Lipid panel. Due on 028 due Goal Foot exam. Due on due Goal CBC. Due on due Goal PAP. Due on due Goal Depression scree jhony. Due on due Goal Pap/HPV testing. Due on due Goal Tobacco Use Scre ening. Due on due Goal Obtain Height, W eight, and BMI. Due on due Goal HPV. Due on due Goal Foot exam. Due on due Goal Unhealthy drug use screening due Goal HIV screen due Goal Dilated eye exam. Due on Jun due Goal Drug Abuse Scree jhony Test (DAST-10). Due on due Goal TSH. Due on due Goal ASCVD 10 year risk. Due on due Goal Tobacco Use Cess ation Counseling. Due on due Goal Generalized Anxi ety Disorder - 7 (JHONY-7). Due on due Goal CBC. Due on due Goal Diabetes screening. Due on due Goal Hep B (). Due on 023 due Goal Hemoglobin A1C. Due on due Goal PAP. Due on due Goal Influenza vaccine. Due on due Goal Urine microalbumin. Due on O due Goal Taking Statin Me dication. Due on due Goal Tobacco Use Scre ening. Due on due Goal Follow up Plan f or abnormal BMI (Less than 18.5, greater than 25). Due on due Goal Pap/HPV testing. Due on due Goal Depression scree jhony. Due on due Goal Pneumococcal vaccine due Goal Hepatitis C Screening due Goal Lipid panel. Due on due Goal HPV testing. Due on due Goal CMP. Due on due Goal HPV. Due on due Goal Vitamin B12. Due on 024 due Goal Dental exam. Due on 020 due Goal GFR. Due on due Goal Vitamin D. Due on due Goal Obtain Height, W eight, and BMI. Due on due Goal Lifestyle education regardin g diet completed Goal Hep B (). Due on 023 due Goal PAP. Due on due Goal CMP. Due on due Goal Influenza vaccine. Due on due Goal Hepatitis C Screening due Goal Foot exam. Due on due Goal Hemoglobin A1C. Due on due Goal Lipid panel. Due on due Goal Dilated eye exam. Due on Jun due Goal Tobacco Use Scre ening. Due on due Goal Vitamin D. Due on due Goal Generalized Anxi ety Disorder - 7 (JHONY-7). Due on due Goal HPV. Due on due Goal Vitamin B12. Due on due Goal Pap/HPV testing. Due on due Goal CBC. Due on due Goal Taking Statin Me dication. Due on due Goal Drug Abuse Scree jhony Test (DAST-10). Due on due Goal Depression scree jhony. Due on due Goal Dental exam. Due on due Goal Urine microalbumin. Due on due Goal HPV testing. Due on due Goal ASCVD 10 year risk. Due on due Goal Unhealthy drug use screening due Goal Pneumococcal vaccine due Goal Follow up Plan f or abnormal BMI (Less than 18.5, greater than 25). Due on due Goal TSH. Due on due Goal GFR. Due on due Goal Obtain Height, W eight, and BMI. Due on due Goal Diabetes screening. Due on due Goal Tobacco Use Cess ation Counseling. Due on due Goal HIV screen due Goal CBC. Due on due Goal Urine microalbumin. Due on O due Goal Vitamin D. Due on due Goal Depression scree jhony. Due on due Goal Lipid panel. Due on due Goal Pneumococcal vaccine due Goal Hepatitis C Screening due Goal Follow up Plan f or abnormal BMI (Less than 18.5, greater than 25). Due on due Goal Obtain Height, W eight, and BMI. Due on due Goal CMP. Due on due Goal Dilated eye exam. Due on Jun due Goal HPV. Due on due Goal Tobacco Use Scre ening. Due on due Goal Generalized Anxi ety Disorder - 7 (JHONY-7). Due on due Goal HPV testing. Due on due Goal Influenza vaccine. Due on Oc due Goal Diabetes screening. Due on due Goal Vitamin B12. Due on due Goal PAP. Due on due Goal ASCVD 10 year risk. Due on O due Goal Pap/HPV testing. Due on due Goal TSH. Due on due Goal GFR. Due on due Goal Foot exam. Due on due Goal Hemoglobin A1C. Due on due Goal Hep B (1st). Due on 023 due Goal HIV screen due Goal Taking Statin Me dication. Due on due Goal Unhealthy drug use screening due Goal Drug Abuse Scree jhony Test (DAST-10). Due on due Goal Tobacco Use Cess ation Counseling. Due on due Goal Dental exam. Due on due Goal Diabetes screening. Due on due Goal Vitamin B12. Due on 024 due Goal Urine microalbumin. Due on due Goal HPV. Due on due Goal Vitamin D. Due on due Goal Generalized Anxi ety Disorder - 7 (JHONY-7). Due on due Goal Dilated eye exam. Due on Jun due Goal HIV screen due Goal Pneumococcal vaccine due Goal CMP. Due on due Goal GFR. Due on due Goal Hep B (1st). Due on 023 due Goal Hemoglobin A1C. Due on due Goal Depression scree jhony. Due on due Goal Drug Abuse Scree jhony Test (DAST-10). Due on due Goal ASCVD 10 year risk. Due on due Goal Tobacco Use Cess ation Counseling. Due on due Goal Obtain Height, W eight, and BMI. Due on due Goal Taking Statin Me dication. Due on due Goal Lipid panel. Due on due Goal Pap/HPV testing. Due on due Goal Tobacco Use Scre ening. Due on due Goal Follow up Plan f or abnormal BMI (Less than 18.5, greater than 25). Due on due Goal PAP. Due on due Goal Influenza vaccine. Due on due Goal HPV testing. Due on due Goal TSH. Due on due Goal Dental exam. Due on due Goal Unhealthy drug use screening due Goal Foot exam. Due on due Goal CBC. Due on due Goal Hepatitis C Screening due Goal Hepatitis C Screening due Goal Depression scree jhony. Due on due Goal CBC. Due on due Goal Hep B (1st). Due on due Goal Vitamin D. Due on due Goal Taking Statin Me dication. Due on due Goal GFR. Due on due Goal Lipid panel. Due on due Goal Dental exam. Due on due Goal Generalized Anxi ety Disorder - 7 (JHONY-7). Due on due Goal HIV screen due Goal Dilated eye exam. Due on Jun due Goal HPV testing. Due on 028 due Goal Pap/HPV testing. Due on due Goal Obtain Height, W eight, and BMI. Due on due Goal Urine microalbumin. Due on due Goal Vitamin B12. Due on 024 due Goal ASCVD 10 year risk. Due on due Goal TSH. Due on due Goal CMP. Due on due Goal Diabetes screening. Due on due Goal Influenza vaccine. Due on due Goal PAP. Due on due Goal Drug Abuse Scree jhony Test (DAST-10). Due on due Goal Pneumococcal vaccine due Goal Tobacco Use Scre ening. Due on due Goal Follow up Plan f or abnormal BMI (Less than 18.5, greater than 25). Due on due Goal Unhealthy drug use screening due Goal Hemoglobin A1C. Due on due Goal Foot exam. Due on due Goal HPV. Due on due Goal Lifestyle education regardin g diet completed Goal Foot exam. Due on due Goal CMP. Due on due Goal Obtain Height, W eight, and BMI. Due on due Goal Follow up Plan f or abnormal BMI (Less than 18.5, greater than 25). Due on due Goal Depression scree jhony. Due on due Goal Hep B (1st). Due on 023 due Goal PAP. Due on due Goal Pneumococcal vaccine due Goal Unhealthy drug use screening due Goal Diabetes screening. Due on due Goal Taking Statin Me dication. Due on due Goal Lipid panel. Due on due Goal Dilated eye exam. Due on Jun due Goal Vitamin B12. Due on 024 due Goal TSH. Due on due Goal Influenza vaccine. Due on due Goal Dental exam. Due on due Goal HPV testing. Due on due Goal HIV screen due Goal CBC. Due on due Goal Drug Abuse Scree jhony Test (DAST-10). Due on due Goal Hepatitis C Screening due Goal Urine microalbumin. Due on due Goal GFR. Due on due Goal Generalized Anxi ety Disorder - 7 (JHONY-7). Due on due Goal HPV. Due on due Goal Tobacco Use Cess ation Counseling. Due on due Goal Tobacco Use Scre ening. Due on due Goal Hemoglobin A1C. Due on due Goal Vitamin D. Due on due Goal ASCVD 10 year risk. Due on S due Goal Pap/HPV testing. Due on due Goal Hepatitis C Screening due Goal Taking Statin Me dication. Due on due Goal GFR. Due on due Goal Drug Abuse Scree jhony Test (DAST-10). Due on due Goal Dilated eye exam. Due on Jun due Goal ASCVD 10 year risk. Due on A due Goal CBC. Due on due Goal Urine microalbumin. Due on A due Goal Pap/HPV testing. Due on due Goal Follow up Plan f or abnormal BMI (Less than 18.5, greater than 25). Due on due Goal Diabetes screening. Due on J due Goal TSH. Due on due Goal Influenza vaccine. Due on Oc due Goal HPV testing. Due on due Goal HPV. Due on due Goal Lipid panel. Due on due Goal Hep B (1st). Due on 023 due Goal PAP. Due on due Goal Generalized Anxi ety Disorder - 7 (JHONY-7). Due on due Goal Obtain Height, W eight, and BMI. Due on due Goal Dental exam. Due on 020 due Goal Depression scree jhony. Due on due Goal Hemoglobin A1C. Due on due Goal Vitamin B12. Due on 024 due Goal Foot exam. Due on 4 due Goal Unhealthy drug use screening due Goal Pneumococcal vaccine due Goal CMP. Due on due Goal HIV screen due Goal Vitamin D. Due on 4 due Goal Tobacco Use Scre ening. Due on due Goal GFR. Due on due Goal Dental exam. Due on due Goal Urine microalbumin. Due on due Goal Vitamin B12. Due on due Goal Drug Abuse Scree jhony Test (DAST-10). Due on due Goal Vitamin D. Due on due Goal Taking Statin Me dication. Due on due Goal PAP. Due on due Goal Foot exam. Due on due Goal TSH. Due on due Goal Tobacco Use Cess ation Counseling. Due on due Goal Generalized Anxi ety Disorder - 7 (JHONY-7). Due on due Goal Hep B (1st). Due on due Goal Pap/HPV testing. Due on due Goal Depression scree jhony. Due on due Goal HPV. Due on due Goal Follow up Plan f or abnormal BMI (Less than 18.5, greater than 25). Due on due Goal CMP. Due on due Goal HPV testing. Due on due Goal Hemoglobin A1C. Due on due Goal Unhealthy drug u se screening. Due on due Goal HIV screen. Due on due Goal Hepatitis C Scre ening. Due on due Goal Dilated eye exam. Due on Sep due Goal Lipid panel. Due on due Goal CBC. Due on due Goal Obtain Height, W eight, and BMI. Due on due Goal Pneumococcal vac cine. Due on due Goal Influenza vaccine. Due on Oc due Goal Tobacco Use Scre ening. Due on due Goal ASCVD 10 year risk. Due on due Goal Diabetes screening. Due on due Goal Lifestyle education regardin g diet completed Goal Taking Statin Me dication. Due on due Goal Foot exam. Due on due Goal ASCVD 10 year risk. Due on due Goal GFR. Due on due Goal Dental exam. Due on 023 due Goal Hemoglobin A1C. Due on due Goal Urine microalbumin. Due on due Goal Hep B (1st). Due on due Goal Dilated eye exam. Due on Sep due Goal PAP. Due on due Goal Vitamin D. Due on due Goal Diabetes screening. Due on due Goal Unhealthy drug u se screening. Due on due Goal Lipid panel. Due on due Goal Generalized Anxi ety Disorder - 7 (JHONY-7). Due on due Goal Follow up Plan f or abnormal BMI (Less than 18.5, greater than 25). Due on due Goal HPV testing. Due on due Goal Vitamin B12. Due on due Goal CBC. Due on due Goal Tobacco Use Cess ation Counseling. Due on due Goal HIV screen. Due on due Goal Obtain Height, W eight, and BMI. Due on due Goal CMP. Due on due Goal Pneumococcal vac cine. Due on due Goal Hepatitis C Scre ening. Due on due Goal Depression scree jhony. Due on due Goal HPV. Due on due Goal TSH. Due on due Goal Influenza vaccine. Due on Oc due Goal Drug Abuse Scree jhony Test (DAST-10). Due on due Goal Pap/HPV testing. Due on due Goal Tobacco Use Scre ening. Due on due Goal Hepatitis C Scre ening. Due on due Goal Tobacco Use Scre ening. Due on due Goal Diabetes screening. Due on due Goal CMP. Due on due Goal TSH. Due on due Goal Unhealthy drug u se screening. Due on due Goal Obtain Height, W eight, and BMI. Due on due Goal Influenza vaccine. Due on due Goal PAP. Due on due Goal Lipid panel. Due on due Goal Pap/HPV testing. Due on due Goal HIV screen. Due on due Goal Generalized Anxi ety Disorder - 7 (JHONY-7). Due on due Goal Tobacco Use Cess ation Counseling. Due on due Goal HPV. Due on due Goal Drug Abuse Scree jhony Test (DAST-10). Due on due Goal Vitamin B12. Due on due Goal Vitamin D. Due on due Goal Follow up Plan f or abnormal BMI (Less than 18.5, greater than 25). Due on due Goal HPV testing. Due on due Goal Depression scree jhony. Due on due Goal CBC. Due on due Goal Lifestyle education regardin g diet completed Goal Vitamin D. Due on due Goal Vitamin B12. Due on due Goal Follow up Plan f or abnormal BMI (Less than 18.5, greater than 25). Due on due Goal Hepatitis C Scre ening. Due on due Goal PAP. Due on due Goal Unhealthy drug u se screening. Due on due Goal CBC. Due on due Goal Influenza vaccine. Due on due Goal Depression scree jhony. Due on due Goal HPV. Due on due Goal CMP. Due on due Goal HIV screen. Due on due Goal Pap/HPV testing. Due on due Goal Diabetes screening. Due on A due Goal Drug Abuse Scree jhony Test (DAST-10). Due on due Goal Lipid panel. Due on due Goal Tobacco Use Cess ation Counseling. Due on due Goal Obtain Height, W eight, and BMI. Due on due Goal HPV testing. Due on due Goal Tobacco Use Scre ening. Due on due Goal Generalized Anxi ety Disorder - 7 (JHONY-7). Due on due Goal TSH. Due on due Goal Follow up Plan f or abnormal BMI (Less than 18.5, greater than 25). Due on due Goal Diabetes screening. Due on F eb due Goal Influenza vaccine. Due on Oc due Goal HIV screen. Due on due Goal Obtain Height, W eight, and BMI. Due on due Goal Vitamin B12. Due on 023 due Goal PAP. Due on due Goal Tobacco Use Scre ening. Due on due Goal HPV. Due on due Goal CBC. Due on due Goal Tobacco Use Cess ation Counseling. Due on due Goal TSH. Due on due Goal Hepatitis C Scre ening. Due on due Goal Depression scree jhony. Due on due Goal CMP. Due on due Goal HPV testing. Due on 023 due Goal Drug Abuse Scree jhony Test (DAST-10). Due on due Goal Lipid panel. Due on due Goal Unhealthy drug u se screening. Due on due Goal Pap/HPV testing. Due on due Goal Generalized Anxi ety Disorder - 7 (JHONY-7). Due on due Goal Vitamin D. Due on due Goal HIV screen. Due on due Goal Depression scree jhony. Due on due Goal CMP. Due on due Goal Drug Abuse Scree jhony Test (DAST-10). Due on due Goal Generalized Anxi ety Disorder - 7 (JHONY-7). Due on due Goal Diabetes screening. Due on due Goal Follow up Plan for abnormal BMI (Less than 18.5, greater than 25). Due on due Goal Hepatitis C Scre ening. Due on due Goal Vitamin B12. Due on due Goal Tobacco Use Scre ening. Due on due Goal HPV testing. Due on due Goal Vitamin D. Due on due Goal Influenza vaccine. Due on due Goal PAP. Due on due Goal CBC. Due on due Goal TSH. Due on due Goal Tobacco Use Cess ation Counseling. Due on due Goal Lipid panel. Due on due Goal Obtain Height, W eight, and BMI. Due on due Goal Dietary manageme nt education, guidance, and counseling completed Goal Drug Abuse Scree jhony Test (DAST-10). Due on due Goal Obtain Height, W eight, and BMI. Due on due Goal HPV testing. Due on due Goal CMP. Due on due Goal TSH. Due on due Goal Tobacco Use Cess ation Counseling. Due on due Goal Generalized Anxi ety Disorder - 7 (JHONY-7). Due on due Goal PAP. Due on due Goal Vitamin D. Due on due Goal Depression scree jhony. Due on due Goal Lipid panel. Due on due Goal Vitamin B12. Due on due Goal Influenza vaccine. Due on Oc due Goal Tobacco Use Scre ening. Due on due Goal CBC. Due on due Goal Hepatitis C Scre ening. Due on due Goal HIV screen. Due on due Goal Follow up Plan f or abnormal BMI (Less than 18.5, greater than 25). Due on due Goal Diabetes screening. Due on D due Referral Ordered: X-RAY EXAM OF KNEE, 3 Right knee Appointment date/timeframe: 1 Day ordered Referral Ordered: X-RAY EXAM OF FOOT Right foot Appointment date/timeframe: 1 Day ordered Referral Ordered: [facility] BI INCL CAD Bilateral breast Appointment date/timeframe: 12/03/2023 ordered Referral Ordered: X-RAY EXAM CHEST 2 VIEWS Bilateral chest PA, lateral Appointment date/timeframe: 03/09/2023 ordered Referral Ordered: Referrals: Radiotherapy. Diagnostic testing Appointment date/timeframe: 10/24/2022 ordered Future Order: Lab Order CBC With Differential/Platelet ([id number]), Scheduled for: Ordered Future Order: Lab Order Comp. Me tabolic Panel (14) ([id number]), Scheduled for: Ordered Future Order: Lab Order Hemoglob in A1c ([id number]), Scheduled for: Ordered Future Order: Lab Order Lipid Pa emanuel ([id number]), Scheduled for: Ordered Future Order: Lab Order TSH ([id number]), Scheduled for: Ordered Future Order: Lab Order Vitamin B12 and Folate ([id number]), Scheduled for: Ordered Future Order: Lab Order IRON, TI BC AND FERRITIN PANEL ([id number]), Ordered on: , Collected on: Ordered Future Order: Lab Order URINALYS IS, AUTO, W/O SCOPE ([id number]), Collected on: , Sent on: Sent Future Order: Lab Order Rapid St rep ([id number]), Sent on: Sent Future Order: Lab Order Rapid St rep ([id number]), Sent on: Sent Future Order: Lab Order HETEROPH ILE ANTIBODIES ([place]) ([id number]), Ordered on: Ordered History Of Present Illness Encounter Date Complaint History Of Prese nt Illness lethargy Onset: 2 days ag o. Severity level is mild. It occurs frequently. The problem is stable. Symptom is aggravated by exertion/exercise and emotional distress. Relevant history includes other medical disease symptoms. Associated symptoms include fever and myalgia. Additional information: Rodrigo is drowsy in office- feeling bad HR 145, she is A&O x 3, but is weak. cough Onset: gradual. Severity: moderate. The client describes the cough as productive. It occurs persistently. The problem has become gradually worse. 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 Symptoms are aggravated by allergens and cold air. There are no relieving factors. Associated symptoms include chills, cough, fatigue, hoarseness, nasal congestion and sore throat. Pertinent negatives include fever. Additional information: seen at urgent care on Sunday- states they said it was a cold- but today is much worse. Hx of aspleenectomy. dysuria Onset: gradual. Date of initial symptoms: 12/01/2023. Severity level is mild. Duration: 2 Days. Location is perineal, suprapubic. The client describes it as bloody (microscopic), cramping, incontinence (stress, stress), odorous, sharp. It occurs constantly. The problem is worse. Context: sneezing. Symptom is aggravated by hyperglycemia. Relieving factors include antibiotics. Additional information: no history of interstitial cystitis, no history of irritable bowel, no history of pyelonephritis, no history of stones, history of UTIs, sexually active, LMP: 11/26/2023, Diarrhea yesterday but ceased todayIncreased fatigue- sleeping all day yesterdayBS running in the 300's. Right knee and foot injury. Pt s tates she fell days ago in a parking lot. Pt was unsure of exact details but felt she tripped, causing abrasions to right knee. Some edema, bruising and edema noted at right knee. Pt reports pain and stiffness when moving this part of body. Bruising on right great toe noted. Pt reports pain and stiffness when moving right foot.In need for refill on GabapentenControlled susbatnace agreement current - 3.22.24Kasper ran today as expected -okUDS in house ok todayCurrent dosing is affectivecontinues to have some pain in jania lower extremities. B12 injection. routine monthly b12 injection Follow up on labs Rodrigo is here today to follow up on recent lab results.A1c 7.5- followed by Endocrinology- sees them in having episodes of low BS- yesterday is was as low as 40she still does not understand her diet and eating in a way to stabilize her BSShe states her periods are badlong and heavyhas a domestic travel consultant [place] in [place].BS worse on period weeksnight-sweatsMood is down- her norm since the passing of grandchildfeels like it is stable, many down daysWorking new job- likes it, stays busyB12 low at 360- monthly injection again in 1 monthLDL 112. Trigs 154, HDL 55, Total 194Needs refills on HCTZ, iron FASTING LABS RODRIGO IS HERE T HIS MORNING TO GET FASTING LABS. PT TOLERATD WELL. PT IS SCHEDULED TO RTC IN 2 WEEKS TO FOLLOW UP ON LABS. Leg and Knee Pain Rodrigo is here today to seek treatment for pain in bilateral knees and legs.This began around January of 2022- when she was started on gabapentin for her Diabetic Neuropathy. Since January 2023 having Covid 19 three times, her pain has increased. She feels it is worse at night has sharp shooting pains at times.Her knees however seem to be more arthritic in nature- stiffness, dull achey pains. Heating pad helpsShe denies accident or injury. Sometimes has popping/cracking with standing after sitting for long period of time.Sitting seems to make pain worse, improves with movement.Currently she is taking Gabapentin 300 mg every night for the past month. Prior she was only using it as needed, but pain is so intense at night she has began taking it daily. I am going to increase her gabapenting to 300 mg bid, and will f/u in one month to re-evaluate.Her previous PCP was writing for this medication- she reports she did fill the last refill 2 weeks ago. The increase of medication will make her run out sooner- so I will send a new Rx.UDS- + for Benzo- she is on temazepam per PMHNP- Vicenta Morrissey for anxietyControl contract signed todayKasp on file- okB12- injection today- monthlyDM: Managed by Endolast visit 06.27.23Medication adjusted and updated in our records today- see med [id number] 7.1 in their officeDM foot exam 06.27.23- on fileDM eye exam- 3.16.240 on file hospital f/u Rodrigo is a 42 y o white female here today for hospital f/u. She was admited to [facility] on 06.06.23 and d/c home 06.07.23 dx: Covid, hypoglycemia, SANTOYO, and light headedness. She reports she started w/ covid on 06/03/23 and deteriorated while fighting illness at home. She has for the past 2 months had low BS ranging from 27-200's. In April I reduced her Trujeo (based on her wieght) to 9 Units in the am, and 9 Units in PM ( down from 62 units at bedtime) She missed her endocrinology appt r/t a . She has another appt on 06.27.23. During her hospitalization, her trujeo has been reduced to 10 unints at bed time and her humolog to 10 unints tid, prior to eating.She reports this week BS have been ranging from 40-205.She does report she feels better this week.no other voiced complaintsRTC end of June for fasting labs.A1c in hospital 6.5 f/u on labs Rodrigo is 42 yo white female w/ hx of T2DM, HLD, ASPLEENIC, and Anxiety. She for the past 2 weeks reports having severely low BS as low as 27, 2-3 x daily. She is followed by endocrinology however has not been to see them since July of last year. She missed her appt in Mar, and is going to miss her appt on the of this month. She has rescheduled the appt for the May.During this time she initially was taking 62 Units of Toujeo daily. I instructed her to possibly split the dose to see if she would have better glycemic control. Since her BS have been all over the place- as reported on her dexcom. Ranging from 27-300. 4 days ago she had another hypoglycemic event at [employer]. She reported that she felt it coming on, brought peanutbutter pretzles w/ her to snack on during service. By the end of service she was so sleepy she could not function and had to be given 4 pure sugar packets to get her BS back up.We recalculated her dosage of Toujeo based on her current weight of 202, to be 18.4 units. We decided to give 9 units in the am and pm. Today her BS has been 70's-200. average 141 over the past month- she has had several days of very high bs ranging from 190's to 340'smore days has had multiple low days We talked about diet and carbcounting- resources were given to patient for meal planning from the [place] health dept and links to the [place] [employer] as well as [employer].Her current diet consists of sugary snacks, occasional fruits, at least 1-2 Mt. Dews daily and high carb diet.Hgb A1c 6.8glucose 86After having covid 3 times in January/Feb- Rodrigo reports this is when her low BS beganLabs: Vit D is low at 10- she states has been taking 5000 IU [id number] 421CMP ok, TSH okUrine ok- cx okHLDTotal cholesterol 235HDL 43Trigs 297 and LDL 146she state she may not have been taking atorvastatin as much during her hospitalizationsShjason has had frequent leg cramps over the past 3 monthsI am changing her medication to Rosuvistatin to see if that helps the cramps, though this could be from some DM neuropathy.Anxiety/DepressionHas been higher than usualRoxy is followed byt Psych- Vicenta Morrissey at [facility] states she has had more depression as her daughter's court date has been set to determine her sentence- since the loss of her grandchild Dec 2021. She also recently loss her childhood best friend/cousin and has the coming up this weekend.She states she often thinks I would be better if I just didn't wake up one day. and now feels guilty because this is what happened to her cousin/friend. She states she is not suicidal- just really sad. FASTING LABS RODRIGO IS HERE T SERENA FOR FASTING LABS. SUCCESSFULLY COLLECTED 4 TUBES. PT TOLERATED WELL. URINE COLLECTION URINE SAMPLE CO LLECTED DUE TO RECURRENT UTI'S IN THE PAST AND ABNORMALLY LOW SUGAR LEVELS. hospital f/u Rodrigo is here t serena for hospital f/ushaley was admitted on 03/08/23 for covid 19 and d/c home that evening. She then became more symptomatic, lethargic and had a possible + blood cx- she was sent back to the er on 03/13/23 and admitted for Bacteremia, Covid 19. She had several rounds of anbx and fluids, and was d/c home on 03/15/23. Since she has returned to work as of yesterday, doing better. Today she reports she has increase left ear pain, sore throat and headache, temp of 98.1.She was neg for repeat testing of strep, covid and flu.she may finsh Levaquin- given home rx from the hospital d/c.Diflucan was given to pt at time of 1st anbx and she has take one this past Sunday.She currently has no other complaints. cough and fever The symptoms beg an 2 days ago. cough and congestion x yesterday Today while at work, Rodrigo became more and more lethargicHR was 115, o2 91%Duoneb treatment given in officeCXR was ordered and anbx sent to pharmacy- however prior to leaving, pt almost passed out in the restroomShe became dizzy and was able to sit on the floor.Her mother was called, assisted to the vehicle for private transport to [facility]. I called ER to give report to Triage nurse.She tested + here in office for Covid 19She has had Covid on 01/29/23, again on 02/21/23, and now again today.She has had negative testing in between positives. Covid symptoms Rodrigo is here t serena for documentation of covid for work. (She was seen in ER 02/08/23 and admitted to be d/c on 02/10/23 for UTI/Syncope). She had tested + for Covid 19 on 01/28/23 and was at home for 5 days. She returned to work last week, and while at work yesterday she began to feel strange very fatigued, feeling bad, headache and several bouts of diarrhea. Today she has low grade temp after taking tylenol for her headache/ body aches. She tested + for covid 19 today. During her previous hospital admission, she had tested negative prior to her discharge. BS 275Today she continues with headache, fever, diarrhea. FLU VACCINE RODRIGO IS RECEIV ING A FLU VACCINE TODAY. ADMINISTERED INTO LEFT DELTOID. BAND AID APPLIED.SHe also is still having UTI symptoms today. UA repeated Nitrate + Meds sent to pharmacy. dysuria Onset: 2 days ag o. Date of initial symptoms: 02/03/2023. Duration: 2 Days. Location is suprapubic. The client describes it as bloody, burning, cloudy. It occurs constantly. The problem is with no change. Denies aggravating factors. Denies relieving factors. Additional information: no history of interstitial cystitis, no history of irritable bowel, history of UTIs, sexually active, Rodrigo is here working today and asked to have her urine checked- as she thinks she may have a UTI. F/u on labs Rodrigo is her to day for f/u on her labs:A1c 9.0 Glucose 121- [facility]- Alisha Mendez- Endocrinology (next appt in Feb)She is not compliant with her dietadvised against use of soda w/ high sugar content and consuming high quantities of sugarCBC- abnormalwbc 11.2, plateletts 611, Basophils, lymphocytes and monocytes elevatedPt does not have a spleenShe has her vaccine records and is in need of Menactra (2nd dose) and Menigococcal B (1st dose), Pneumonia 20.It is unclear if she has had Hep A or B vaccinesTdap is current until August 2027New covid booster and flu shots dueDenies feeling ill todaystates I feel good She has had some changes in her anxiety/depression medicationsFollowed by [facility] is suffering from the loss of her grand child. Yesterday was the 1 year anniversary.She is doing better with coping. Also has therapy, good home/social support.HDL: Improvedon atorvastain and fenofibrate- taking both compliantlyTotal C 155, Trigs 103, HDL 52, LDL 83mediterrenean diet recommended Fasting Labs Rodrigo is here t his morning for fasting labs. Successfully collected 4 tubes, pt tolerated well, gauze and coban applied. women's health exam Rodrigo is he re today for routine well woman exam.She reports no [id number] active w/ maleDenies pain, vaginal, dischargeLNMP 2 weeks ago around 11/28/22Recent Mammo-on chart- neg BRADs category 1 follow up labs Rodrigo is here t serena for f/u on recent [id number] 8.9- followed by Endocrinology- next appt 12.06.22Last DM foot exam was M eye exam- earlier this year [facility]-3 record reviewed, no DM retinopathyMammo- due- last at age 39Pap- Due- followed by [facility] -missed last appt due to illness (Dr. Roldan- [place])Glucose 217Vit D low at 11- supplement sent to [id number] elevated 1382Iron- 50, TIBC 374, Saturation low at 13%- can start iron supplement OTC every other dayDiscussed benefits and risk- pt aware can cause constipation, dark stools, and if bright red bleeding occurs, soa, dizziness or fainting occurs she is to go to the ER.WBC elevated 12.5- does not have a spleen, hx of monoCMP- wnlHEP/HIV negHR ranging from 116-122- she is asymptomatic. She was given a betablocker, but report she has not been taking it for about 1 year, as she felt she did not need it. I have sent a refill of this medication today and encouraged her to take it.She is suffering from the loss of her Grandchild 9 months ago. She is seeing behavioral health and going to therapy. She reports good days and bad days. Next appt is on 12.18.22 fasting labs colection Rodrigo is here for fasting labs collection dysuria Onset: 2 days ag o. Severity level is 3. Duration: 2 Days. There is no radiation. Location is perineal, suprapubic. The client describes it as sharp. It occurs daily. The problem is worse. Denies aggravating factors. Relieving factors include topical nystatin cream. Additional information: no history of interstitial cystitis, no history of irritable bowel, history of UTIs, Frequent Yeast infectionsGlucose >1000 in urine. eR f/u rodrigo is here t serena for ER f/u. On Sunday she began to feel bad, had multiple events of diarrhea, then vomiting. 2 days later she was so weak she went to the ER. She was given iv fluids and discharged home same day w/ Gastroenteritis. She is back to work today, but still feels fatigued, hr 116. She complains of sore throat today with white patches. Strep testing neg here in clinic- appears to be thrush. Sore throat Onset: 2 Weeks. The severity of the problem is moderate. Pain level: 5/10. The problem has worsened. The symptoms are persistent. Symptoms are associated with history of allergies. Symptoms are not associated with dental infection, exposure to strep, history of asthma, recent cold, recent travel, sick family member and smoker. Aggravating factors include cold air. Symptoms are not aggravated by allergens or smoke. Symptoms are not relieved by antihistamines, decongestants, OTC cough syrup, OTC analgesics, humidifier or throat lozenges. Associated symptoms include chills/rigors, fatigue, fever, headache, myalgia and pharyngitis. Pertinent negatives include dyspnea, facial pain, hemoptysis, nasal congestion, otalgia, postnasal drainage, rash, rhinitis, sinus pressure, sputum or tooth pain. Additional information: She has been on amoxicillin 875 mg which she finished and then went to [facility] and was given amoxicillin 500 mg- still taking- now worse, more exudate on tonsils, chills, mailase. [place] neg here, strep neg here. sore throat Onset: 1 Week. T he severity of the problem is moderate. The problem has worsened. The symptoms are persistent. Symptoms are not associated with dental infection, exposure to strep, recent cold, recent travel, sick family member and smoker. Symptoms are not aggravated by allergens, exertion, lying down, smoke or stress. Symptoms are not relieved by antihistamines, decongestants, OTC cough syrup, OTC analgesics, humidifier or throat lozenges. Associated symptoms include fatigue and pharyngitis. Pertinent negatives include chills/rigors, cough, dyspnea, facial pain, fever, headache, hemoptysis, myalgia, nasal congestion, otalgia, postnasal drainage, rash, rhinitis, sinus pressure, sputum, tooth pain or wheezing. Additional information: amoxicillin 875 on 05/10/22, and amoxicillin 500 mg on 05/28/22 white exudate on left tonsil is worse. NEW PATIENT Rodrigo is here t serena as a new patient to establish care. She normally sees Dr. Almodovar for her PCP, and Endocronology at the [facility], and Vicenta Morrissey for anxiety and depression. She is here today for her Covid 19 booster. Pt received Covid Bivalent Booster today in Rt Deltoid. Pt tolerated well.She recently had a tragic loss of her granddaughter and is struggling, but doing better.She just started a new job.anxiety and depression screenings were 13 and 9. She is on medication currentlyshe is seeing Vicenta Morrissey for med management and therapy.She f/u w/ them on the Mar. Instructions Date Instruction Additional Infor mation Use albuterol as ins tructed q 4 hrs prn cough or wheeze Related to Wheezing Cover your mouth whe n coughing, cough into your elbow. Place cough drops in the freezer to cool and soothe throat. Wear a mask when in public or near people. May use 1 tsp of honey every 4 hrs as needed for cough. Related to Cough Patient counseled on doing warm salt water gargles, completing any and all medications prescribed, may use OTC analgesics as needed. Related to Acute pharyngitis, unspecified Patient educated on the importance of improved glycemic control. Counseled on diet, exercise and other lifestyle modifications. Monitor blood glucose and keep a log as instructed by checking fasting glucose in the AM and non fasting before bedtime with any additional checks as instructed. Patient instructed to bring glucose log to all scheduled appointments. Instructed on the importance of taking all medications as prescribed. Patient aware of the importance of diabetic eye exams, dental check ups, foot exams and diabetic foot care. Patient verbalized understanding. Related to Type 2 diabetes mellitus with diabetic neuropathy, unspecified B-12 injection given in office today. Eat foods rich in B-12. Additional oral B12 replacement if indicated. Related to Vitamin B12 deficiency Physical activity as tolerated. Try to engage in some form of moderate physical activity for 30 minutes most days of the week. May modify activity as needed to reduce discomfort. Try to achieve/maintain a healthy body weight to reduce strain on musculoskeletal system. Verbalizes an understanding. Related to Body mass index [BMI] 32.0-32.9, adult Avoid chocolate, caf feine, carbonation, or citrus. Take antibiotics until complete. Take all medications as prescribed. Drink plenty of clear fluids. Counseled on appropriate hygiene to reduce risk of future UTI's. Verbalized an understanding of all.RTC 3 days if no improvement- otherwise, RTC Sept as scheduled for labs Related to Dysuria Follow strict diabet ic diet, eliminating processed sugars, mt. Dew, sugary snacks, bread.Follow up with Endocrinology for medication management. Related to Hyperglycemia Keep your up coming appt with Dr. Osorio for symptom management/evaluation Related to Functional urinary incontinence Giving encouragement to exercise Related to Body mass index [BMI] 32.0-32.9, adult Lifestyle education regarding di et Related to Body mass index [BMI] 32.0-32.9, adult mammo due 10/31/2023- ordered tod ay Related to Encntr screen mammogram for malignant neoplasm of breast rest, ice, and compr ession as instructed to reduce pain and swelling. Related to Pain in right foot rest, ice, and compr ession as instructed to reduce pain and swelling. Related to Pain in right knee Take medications as prescribed. Follow a sleep schedule. Try to engage in 30 minutes of moderate activity daily if tolerated, as exercise has been shown to improve depression symptoms Related to Depression Physical activity as tolerated. Try to engage in some form of moderate physical activity for 30 minutes most days of the week. May modify activity as needed to reduce discomfort. Try to achieve/maintain a healthy body weight to reduce strain on musculoskeletal system. Verbalizes an understanding. Related to Body mass index [BMI] 34.0-34.9, adult Low fat, low cholest everton diet. Avoid fatty, fried, and greasy foods. Physical activity as tolerated. Counseled on risks of associated comorbidities, such as heart disease and stroke. Encouraged avoidance of tobacco products. Related to Hyperlipidemia B-12 injection given in office today. Eat foods rich in B-12. Additional oral B12 replacement if indicated. Related to Vitamin B12 deficiency Patient educated on the importance of improved glycemic control. Counseled on diet, exercise and other lifestyle modifications. Monitor blood glucose and keep a log as instructed by checking fasting glucose in the AM and non fasting before bedtime with any additional checks as instructed. Patient instructed to bring glucose log to all scheduled appointments. Instructed on the importance of using diabetic insulin as prescribed. Patient aware of the importance of diabetic eye exams, dental check ups, foot exams and diabetic foot care. Patient verbalized understanding. Related to Type 2 diabetes mellitus w/ diabetic neuropathy If you have an episo de of low blood sugar, you should eat or drink 15 grams of carbohydrates:4 oz. or 1/2 cup of fruit juice (orange, apple, or grape)4-6 oz. 1/2 can of soda (not diet)4 tablets of glucose or a tube of glucose gel1 teaspoon of sugar or honey2 handfulls of raisinsWait 15 min- if your bs is less than 70mg/dl eat or drink 15 more grams of carbohydrates.You should try to eat a meal within the next hour to maintain your BS. To keep BS within your parameters, you should eat small frequent meals throughout the day of healthy selection. Related to Hypoglycemia Giving encouragement to exercise Related to Body mass index [BMI] 34.0-34.9, adult Lifestyle education regarding di et Related to Body mass index [BMI] 34.0-34.9, adult Giving encouragement to exercise Related to Body mass index [BMI] 34.0-34.9, adult Lifestyle education regarding di et Related to Body mass index [BMI] 34.0-34.9, adult May use heat or ice application to affected joints 20-30 minutes, 3-4 x daily. Use whichever gives most comfort.May take OTC tylenol for pain control as per packing instructions.Daily low impact exercise of at least 30 minutes, five days weekly recommended. Related to Pain in rt knee May use heat or ice application to affected joints 20-30 minutes, 3-4 x daily. Use whichever gives most comfort.May take OTC tylenol for pain control as per packing instructions.Daily low impact exercise of at least 30 minutes, five days weekly recommended. Related to Pain in lt knee Discussed stress red uction techniques. Take medications as prescribed. Limit caffeine and nicotine. Try to follow a set sleep schedule. Get daily moderate exercise if able to tolerate.Keep all appointments with Vicenta Morrissey and your therapist. Related to Anxiety disorder, unspecified Take medications as prescribed. Follow a sleep schedule. Try to engage in 30 minutes of moderate activity daily if tolerated, as exercise has been shown to improve depression symptoms Related to Depression Patient educated on the importance of improved glycemic control. Counseled on diet, exercise and other lifestyle modifications. Monitor blood glucose and keep a log as instructed by checking fasting glucose in the AM and non fasting before bedtime with any additional checks as instructed. Patient instructed to bring glucose log to all scheduled appointments. Instructed on the importance of taking all medications as prescribed. Patient aware of the importance of diabetic eye exams, dental check ups, foot exams and diabetic foot care. Patient verbalized understanding. Related to Type 2 diabetes mellitus w/ diabetic neuropathy B-12 injection given in office today. Eat foods rich in B-12. Additional oral B12 replacement if indicated. Related to Vitamin B12 deficiency Giving encouragement to exercise Related to Body mass index [BMI] 34.0-34.9, adult Lifestyle education regarding di et Related to Body mass index [BMI] 34.0-34.9, adult If you have an episo de of low blood sugar, you should eat or drink 15 grams of carbohydrates:4 oz. or 1/2 cup of fruit juice (orange, apple, or grape)4-6 oz. 1/2 can of soda (not diet)4 tablets of glucose or a tube of glucose gel1 teaspoon of sugar or honey2 handfulls of raisinsWait 15 min- if your bs is less than 70mg/dl eat or drink 15 more grams of carbohydrates.You should try to eat a meal within the next hour to maintain your BS. To keep BS within your parameters, you should eat small frequent meals throughout the day of healthy selection.Insulin adjustments as per ER/HospitalKeep appt w/ Endo 06/27/23 Related to Hypoglycemia Drink plenty of flui ds. Take rest. Monitor oxygen saturation and heart rate. Go to the ER if resting oxygen saturation stays below 88%, or if any AMS, worsening dyspnea, chest pain, or other concerning symptoms. Verbalizes an understanding of all. Related to COVID-19 Physical activity as tolerated. Try to engage in some form of moderate physical activity for 30 minutes most days of the week. May modify activity as needed to reduce discomfort. Try to achieve/maintain a healthy body weight to reduce strain on musculoskeletal system. Verbalizes an understanding. Related to Body mass index [BMI] 33.0-33.9, adult Giving encouragement to exercise Related to Body mass index [BMI] 33.0-33.9, adult Lifestyle education regarding di et Related to Body mass index [BMI] 33.0-33.9, adult low sodium diet Related to Edema Discussed stress red uction techniques. Take medications as prescribed. Limit caffeine and nicotine. Try to follow a set sleep schedule. Get daily moderate exercise if able to tolerate. Related to Anxiety disorder, unspecified Take medications as prescribed. Follow a sleep schedule. Try to engage in 30 minutes of moderate activity daily if tolerated, as exercise has been shown to improve depression symptoms Related to Depression Low fat, low cholest everton diet. Avoid fatty, fried, and greasy foods. Physical activity as tolerated. Counseled on risks of associated comorbidities, such as heart disease and stroke. Encouraged avoidance of tobacco products. Related to Hyperlipidemia B-12 injection given in office today. Eat foods rich in B-12. Additional oral B12 replacement if indicated. Related to Vitamin B12 deficiency Patient educated on the importance of maintaining glycemic control. Counseled on diet, exercise and other lifestyle factors that can impact glucose control. Monitor blood glucose and keep a log as instructed by checking fasting glucose in the AM and non fasting before bedtime with any additional checks as instructed. Patient instructed to bring glucose log to all scheduled appointments. Instructed on the importance of taking all medications as prescribed. Patient aware of the importance of diabetic eye exams, dental check ups, foot exams and diabetic foot care. Patient verbalized understanding. If you have an episode of low blood sugar, you should eat or drink 15 grams of carbohydrates:4 oz. or 1/2 cup of fruit juice (orange, apple, or grape)4-6 oz. 1/2 can of soda (not diet)4 tablets of glucose or a tube of glucose gel1 teaspoon of sugar or honey2 handfulls of raisinsWait 15 min- if your bs is less than 70mg/dl eat or drink 15 more grams of carbohydrates.You should try to eat a meal within the next hour to maintain your BS. To keep BS within your parameters, you should eat small frequent meals throughout the day of healthy selection. Related to Type 2 diabetes mellitus with hypoglycemia without coma Giving encouragement to exercise Related to Body mass index [BMI] 34.0-34.9, adult Lifestyle education regarding di et Related to Body mass index [BMI] 34.0-34.9, adult Patient counseled on doing warm salt water gargles, completing any and all medications prescribed, may use OTC analgesics as needed. Related to Acute pharyngitis, unspecified Drink plenty of flui ds. Use nasal saline rinses. Nasal steroid spray if tolerated. Antihistamines as needed. Avoid allergy triggers when possible. Related to Otalgia, right ear Take medications as prescribed. Avoid known triggers (such as: caffeine, chocolate, irregular sleep cycles, increased stress, alcohol, fragrances, bright/strobing lights). If unsure of triggers, keep a daily journal to help recognize migraine patterns. Counseled that overuse of analgesics (especially OTC analgesics with caffeine), can cause rebound migraine headaches. Verbalizes an understanding of all. Related to Headache Giving encouragement to exercise Related to Body mass index [BMI] 33.0-33.9, adult Lifestyle education regarding di et Related to Body mass index [BMI] 33.0-33.9, adult Drink plenty of flui ds. Take rest. Monitor oxygen saturation and heart rate. Go to the ER if resting oxygen saturation stays below 88%, or if any AMS, worsening dyspnea, chest pain, or other concerning symptoms. Verbalizes an understanding of all. Related to Shortness of breath Asplenic and hypospl enic patients have a small lifelong increased risk for severe or overwhelming infection with certain pathogens. Both the risk of infection and the associated mortality appear to be about two- or threefold higher than the general population. Because infections in patients with impaired splenic function can progress rapidly, we advise patients who develop fever (eg, temperature =101 F /38.3 C ) or other signs of systemic infection (eg, chills, rigors, vomiting/diarrhea, headache) to present to the nearest emergency department immediately. Related to Immunocompromised Physical activity as tolerated. Try to engage in some form of moderate physical activity for 30 minutes most days of the week. May modify activity as needed to reduce discomfort. Try to achieve/maintain a healthy body weight to reduce strain on musculoskeletal system. Verbalizes an understanding. Related to Body mass index [BMI] 33.0-33.9, adult continue to wear the heart monitor as instructed per cardiologyHydrate wellIf you have cp, soa, fainting- go to the ER Related to Sinus tachycardia Drink plenty of flui ds. Take rest. Monitor oxygen saturation and heart rate. Go to the ER if resting oxygen saturation stays below 88%, or if any AMS, worsening dyspnea, chest pain, or other concerning symptoms. Verbalizes an understanding of all. Related to COVID-19 Giving encouragement to exercise Related to Body mass index [BMI] 33.0-33.9, adult Lifestyle education regarding di et Related to Body mass index [BMI] 33.0-33.9, adult Low fat, low cholest everton diet. Avoid fatty, fried, and greasy foods. Physical activity as tolerated. Counseled on risks of associated comorbidities, such as heart disease and stroke. Encouraged avoidance of tobacco products. Related to Hyperlipidemia B-12 injection given in office today. Eat foods rich in B-12. Additional oral B12 replacement if indicated. Related to Vitamin B12 deficiency Physical activity as tolerated. Try to engage in some form of moderate physical activity for 30 minutes most days of the week. May modify activity as needed to reduce discomfort. Try to achieve/maintain a healthy body weight to reduce strain on musculoskeletal system. Verbalizes an understanding. 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 Counseled on diet, exercise and other lifestyle modifications. Monitor blood glucose and keep a log as instructed by checking fasting glucose in the AM and non fasting before bedtime with any additional checks as instructed. Patient instructed to bring glucose log to all scheduled appointments. Instructed on the importance of taking all medications as prescribed. Patient aware of the importance of diabetic eye exams, dental check ups, foot exams and diabetic foot care. Patient verbalized understanding. Related to Type 2 diabetes mellitus without complications Giving encouragement to exercise Related to Body mass index [BMI] 33.0-33.9, adult Lifestyle education regarding di et Related to Body mass index [BMI] 33.0-33.9, adult Routine well woman e xam todayRepeat papsmear in 3 yearsRoutine Mammogram annually Related to Encntr for gynecological assistant exam (general) (routine) w/o abn findings Someone from the off ice should call you with an apt for your mammogram at [facility]. Related to Encntr screen mammogram for malignant neoplasm of breast Physical activity as tolerated. Try to engage in some form of moderate physical activity for 30 minutes most days of the week. May modify activity as needed to reduce discomfort. Try to achieve/maintain a healthy body weight to reduce strain on musculoskeletal system. Verbalizes an understanding. Related to Body mass index [BMI] 33.0-33.9, adult Continue use of biso prolol medicationsIf you have chest pain lasting longer than 5 minutes, palpitations, shortness of breath, dizziness, or fainting go to the ER Related to Sinus tachycardia Patient educated on the importance of improved glycemic control. Counseled on diet, exercise and other lifestyle modifications. Monitor blood glucose and keep a log as instructed by checking fasting glucose in the AM and non fasting before bedtime with any additional checks as instructed. Patient instructed to bring glucose log to all scheduled appointments. Instructed on the importance of taking all medications as prescribed. Patient aware of the importance of diabetic eye exams, dental check ups, foot exams and diabetic foot care. Patient verbalized understanding. Related to Type 2 diabetes mellitus without complications Likely in relation t o spleenectomy and hx of mono Related to Leukocytosis Low fat, low cholest everton diet. Avoid fatty, fried, and greasy foods. Physical activity as tolerated. Counseled on risks of associated comorbidities, such as heart disease and stroke. Encouraged avoidance of tobacco products. Related to Hyperlipidemia Giving encouragement to exercise Related to Body mass index [BMI] 33.0-33.9, adult Lifestyle education regarding di et Related to Body mass index [BMI] 33.0-33.9, adult Take diflucan as ins tructed. Return to clinic if symptoms are not improving. Related to Vaginitis Drink plenty of wate r. Avoid chocolate, caffeine, carbonation, or citrus. Maintain BS between 60-120. Take medication as instructed. Related to Dysuria Giving encouragement to exercise Related to Body mass index [BMI] 34.0-34.9, adult Lifestyle education regarding di et Related to Body mass index [BMI] 34.0-34.9, adult regular oral hygeineDiflucan Rel ated to Oral thrush Strep test was negat blake. Continue to drink plenty of fluids, take tylenol or motrin per package instructions. Use warm salt water gargles daily. Place cough drops in freezer and us as instructed to soothe throat. You may also use 1-2 tsps of honey every 4 for cough or soothing of throat. Use Flonase 1 puff to each nare daily. If not better in 7 to 10 days, return to clinic. Related to Acute tonsillitis, unspecified Strep test was negat blake. Continue to drink plenty of fluids, take tylenol or motrin per package instructions. Use warm salt water gargles daily. Place cough drops in freezer and us as instructed to soothe throat. You may also use 1-2 tsps of honey every 4 for cough or soothing of throat. Use Flonase 1 puff to each nare daily. If not better in 7 to 10 days, return to clinic. Related to Acute pharyngitis, unspecified Use diflucan as inst ructed. It may increase the effects of your clonazipam. You may also continue to take the culturell daily. 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 May take with food to ease stomach irritation. If you experience frequent yeast infections, you may consider taking an OTC probiotic like culturell or align while taking antibiotics, or eating yogurt (daily) with active cultures. Related to Acute tonsillitis, unspecified Giving encouragement to exercise Related to Body mass index [BMI] 34.0-34.9, adult Dietary management e ducation, guidance, and counseling Related to Body mass index [BMI] 34.0-34.9, adult You received the Cov id 19 booster today. You may have some mild discomfort, chills, or a sore arm in the next 24 hrs. If needed you may take tylenol per packing instructions Related to Encounter for immunization Assessments Type Assessment Date No Information
--- NOTE | 2025-01-26 12:51 | MM_ITS ---
PROCEDURE INFORMATION: Exam: MG Bilateral Screening 3D Mammography Exam date and time: 01/26/2025 1:03 PM Age: 44 years old Clinical indication: Screening examination TECHNIQUE: Imaging protocol: Bilateral Screening tomosynthesis and 2D mammography including computer-aided detection (CAD) when performed. COMPARISON: 1. MG MM DIG SCREENING MAMM BI W/CAD 12/03/2023 3:00 PM 2. MG MM DIG SCREENING MAMM BI W/CAD 11/01/2022 4:44 PM FINDINGS: MAMMOGRAPHY: Breast composition: There are scattered areas of fibroglandular density. Mass: No suspicious masses. Architectural distortion: None. Calcifications: No suspicious calcifications. Asymmetric density: None. Skin thickening: None. Axillary adenopathy: None. IMPRESSION: No mammographic evidence of malignancy. Annual screening is recommended unless otherwise clinically indicated. ASSESSMENT: BI-RADS Category 1: Negative.
--- OUTSIDE RECORDS SUMMARY | 2025-01-26 12:52 | XMS_ITS | Patient Health Record ---
[facility] Address [address] [place] [id number] Care Team Providers Care Registered Nurse Surgical Services Name Role Phone Dudley Almodovar Primary Care Provider Williams Oro Unavailable [phone] Allergies No Known Allergies Medications Medication SIG (Take, Route, Frequency, Duration) Notes Start Date End Date Status Gabapentin 300 MG 1 cap(s) orally At Bed Time 02/26/2023 Active Promethazine HCl 25 MG 1 tab(s) orally every 6 hours prn 08/10/2022 Active HumaLOG 100 UNIT/ML 20 units subcutaneously TIDAC Active HumuLIN R 100 UNIT/ML as directed per sliding scale up to 80 units daily subcutaneously qa&hs 10/14/2020 Active INSULIN SYRINGE 1CC 27G DIRECTED AC&HS *Please review for potential replacement for e-prescription and drug interaction check* 10/14/2020 Active OneTouch Ultra 1 TEST STRIP FINGERSTICK TEST TWICE A DAY OR DIRECTED *Please review and pick correct strength-formulat ion from [employer] options. If intended option is not shown, discontinue and re-order from Quick Search* 09/02/2020 Active Ibuprofen 800 MG 1 tab(s) orally 3 times a day; Duration: 30 Not-Taking Melatonin 10 MG 1 cap(s) orally once a day (at bedtime) Active Bisoprolol Fumarate 10 MG 1 tab orally once a day Not-Taking Triamterene-HCTZ 37.5-25 MG 1 tab(s) orally once daily as needed for swelling; Duration: 90 Not-Taking Mounjaro 5 MG/0.5ML as directed subcutaneously once a week Active OneTouch UltraSoft Lancets 1 LANCET FINGERSTICK TEST TWICE A DAY OR DIRECTED *Please review and pick correct strength-formulat ion from [email or web address] options. If intended option is not shown, discontinue and re-order from Quick Search* 11/07/2016 Active Toujeo Max SoloStar 300 UNIT/ML 62 units subcutaneously once a day Active ONE TOUCH ULTRA GLUCOSE MONITOR 1 METER FINGERSTICK TEST TWICE A DAY OR DIRECTED *Please review for potential replacement for e-prescription and drug interaction check* 11/07/2016 Active Maxalt-LAB HEAD 5 MG 1 TAB(S) ORALLY AT ONSET OF MIGRAINE, MAY REPEAT ONE TIME 2 HOURS LATER IF NOT RESOLVED *Please review and pick correct strength-formulat ion from [email or web address] options. If intended option is not shown, discontinue and re-order from Quick Search* Not-Taking Atorvastatin Calcium 40 MG 1 tab(s) orally once a day; Duration: 90 day(s) Active Fenofibrate 160 MG 1 tab(s) orally once a day Active diazePAM 10 MG 1 TAB(S) ORALLY TWO TIMES A DAY *Please review and pick correct strength-formulat ion from [email or web address] options. If intended option is not shown, discontinue and re-order from Quick Search* Active Ozempic (0.25 or 0.5 MG/DOSE) 2 MG/1.5 ML (0.25 MG OR 0.5 MG DOSE) DIRECTED SUBCUTANEOUSLY ONCE A WEEK *Please review and pick correct strength-formulat ion from [email or web address] options. If intended option is not shown, discontinue and re-order from Quick Search* Not-Taking Pristiq 50 MG 1 tab(s) orally once a day; Duration: 30 day(s) Active Pseudoeph-Bromphen -DM 30-2-10 MG/5ML 5-10 ml orally 4 times a day, prn 02/03/2022 Not-Taking Immunizations Vaccine Route Administration Date Status Comme nts xFlumist (intranasally age 2yr-49yr)-trivale nt Unknown 01/27/2013 Administered xFlu shot-36 months and older IM Intramuscular 03/10/2006 Administered xFlu shot-36 months and older IM Intramuscular 02/08/2007 Administered Tetanus Tdap-Adacel (over 7yrs) IM Intramuscular 08/28/2017 Administered Prevnar (PCV20) Unknown 05/13/2023 Administered Prevnar (PCV13) IM Intramuscular 09/04/2017 Administered ppd SC Subcutaneous 10/07/2018 Administered Menactra IM Intramuscular 08/22/2017 Administered Menactra IM Intramuscular 08/30/2017 Administered Menogo ccal Part B Fluzone Quad (6months&older) IM Intramuscular 02/15/2020 Administered Fluzone Quad (6months&older) IM Intramuscular 03/09/2022 Administered Fluzone PF Quad (6-35 months) Unknown 12/31/2013 Administered Fluzone PF Quad (6-35 months) Unknown 02/02/2019 Administered Fluzone PF Quad (6-35 months) Unknown 02/06/2023 Administered COVID 19 Moderna Unknown 05/14/2020 Administered COVID 19 Moderna Unknown 07/09/2020 Administered Problems Problem Type SNOMED Code ICD Code Onset Dates Problem Status W/U Status Risk Notes Problem Type II diabetes mellitus without complication (207100493) Type 2 diabetes mellitus without complications (E11.9) Active confirmed Problem Anxiety (83086876) Anxiety (F41.9) Active confirmed Problem Diabetic neuropathy (155405882) Diabetic neuropathy (E11.40) Active confirmed Problem Mixed anxiety and depressive disorder (877112973) Depression with anxiety (F41.8) Active confirmed Problem Hyperglycemia due to type 2 diabetes mellitus (283775271105880) Type 2 diabetes mellitus with hyperglycemia (E11.65) Active confirmed Problem Insomnia disorder related to another mental disorder (75779155) Insomnia due to other mental disorder (F51.05) Active confirmed Problem Long-term current use of insulin (506893493) 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) Active confirmed Problem Mood disorder (25127929) Mood disorder (F39) Active confirmed Problem Migraine without aura, not refractory (263297092) Migraine without aura and without status migrainosus, not intractable (G43.009) Active confirmed Problem Dyslipidemia (226927085) Dyslipidemia (E78.5) Active confirmed Problem Obsessive-compuls blake disorder (948533431) OCD (obsessive compulsive disorder) (F42.9) Active confirmed Problem Insomnia (821016912) Insomnia disorder with non-sleep disorder mental comorbidity (G47.00) Active confirmed Plan Of Treatment No Information Insurance Providers Payer Name Payer Address Payer Phone Subscriber Number Group Number Insured Name Patient Relationship to Insured Coverage Start Date Coverage End Date [employer] [address] [place] [address] [id number] PenaGarciaOlya gomez Self - patient is the insured Medications Administered Medication Instructions Date of Administration Dosage Notes Dexamethasone 02/07/2012 Dexamethasone 02/03/2013 1 mL Dexamethasone 04/05/2015 1 mL Dexamethasone 07/02/2015 1 mL Dexamethasone 05/09/2016 1 mL Dexamethasone 03/13/2017 1 mL Dexamethasone 06/05/2017 1 mL Dexamethasone 07/03/2017 1 mL phenergan 25 mg/ml 05/16/2013 1 mL phenergan 25 mg/ml 05/17/2013 1.0 phenergan 25 mg/ml 08/15/2013 Medical (General) History Medical History History ICD Code History of Cindy-Amanda Left thyroid nodule Impaired fasting glucose Type 2 DM Anxiety disorder/OCD Surgical History Surgery Date(Month/Year) 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 Have a repair on uterus and removed a cy st 09-04 wisdom tooth removed 03-07 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 Gallbladder removed @ [facility] 07/29/10 I&D of perirectal abscess 10/02/20 Hospitalization History Reason Date(Month/Year) [facility]- Abscess removal 10/02/20- 10/05/20 see above [facility]-gallbladder removed 07/29/10 to 07/30/10 [facility] ER-stomach pain 09/03/12 [facility] ER - dehydration/migraine 07/10/14 clinic-strep throat 05/16 [facility] - strep throat, dehydration, vomitin g 09/21- [facility] ER-elevated blood sugar 07/03/17 [facility] ER-hyoerglycemia 07/17/20 [facility] ER-acute gastroenteritis, hyperglyce nnamdi 08/05/20
[2025-01-26 14:09] LABS: Alanine Aminotransferase 27 U/L (12-78); Albumin Level 4.2 g/dl (3.5-5.0); Albumin/Globulin Ratio 1.4 (1.1-1.8); Alkaline Phosphatase 66 U/L (38-126); Amylase 68 U/L (30-110); Anion Gap 11.5 mEq/L (5-15); Aspartate Amino Transferase 26 U/L (14-36); Bilirubin,Total 0.4 mg/dl (0.2-1.3); Blood Urea Nitrogen 17 mg/dl (7-17); Calcium 9.8 mg/dl (8.4-10.2); Carbon Dioxide 27 mmol/L (22.0-30.0); Chloride 104 mmol/L (98-107); Cholesterol 140 mg/dl (140-200); Creatinine,Serum 0.60 mg/dl (0.52-1.04); Estimated Glomerular Filt Rate 108 ml/min (>60); GFR (African American) 131 ML/MIN (>60); Globulin 2.9 g/dL (1.3-3.2); Glucose 107 mg/dl (74-100); HDL Cholesterol 57 mg/dl (40-60); Lipase 53 U/L (23-300); Potassium 4.5 mmoL/L (3.5-5.1); Sodium 138 mmol/L (136-145); Total Protein,Serum 7.1 g/dl (6.3-8.2); Triglycerides 82 mg/dl (30-150)
== END 2025-01-26 23:59 | disposition home or self-care (01) ==
LOC: RAD 12:49
PROVIDERS: Nurse Practitioner; PCP Internal Medicine; Visit Provider Obstetrics & Gynecology Gynecology
DX: Z12.31 Encounter for screening mammogram for malignant neoplasm of breast (principal); R92.323 Mammographic fibroglandular density, bilateral breasts
CPT/HCPCS: 36415; 77063; 77067; 80053; 80061; 82150; 83690